=== PATIENT | male | born 1940 | race Caucasian/White ===

== ENCOUNTER 2017-06-20 00:25 | Emergency (ER) | payer MEDICARE, OTHER ==
[~2017-06-20] VITALS: Ht 182.9 cm; Wt 73.5 kg
[~2017-06-20 00:25] MED LIST: ACHYD1T PO; ASP81TEC PO; ATRV10T PO; CIPR500S2 PO; FNST5T PO; PHEN100T26 PO
[2017-06-20] MEDS ORDERED: METO-333 (00:30)
[2017-06-20] MEDS ORDERED: FLUT16SP22 (00:30)
[2017-06-20 00:36] LABS: BASOPHILS % (AUTO) 1 % (0-10); EOSINOPHILS # (AUTO) 0.2 10^3/uL (0.0-0.3); EOSINOPHILS % (AUTO) 4 % (0-10); LYMPHOCYTES # (AUTO) 1.8 X 10^3 (1.0-4.0); LYMPHOCYTES % (AUTO) 31 % (12-44); MEAN CORPUSCULAR HEMOGLOBIN 31 PG (25-34); MEAN CORPUSCULAR HGB CONC 34 G/DL (32-36); MEAN CORPUSCULAR VOLUME 92 FL (80-99); MEAN PLATELET VOLUME 11.3 FL (7.4-10.4); MONOCYTES # (AUTO) 0.5 X 10^3 (0.0-1.0); MONOCYTES % (AUTO) 9 % (0-12); NEUTROPHILS # (AUTO) 3.3 X 10^3 (1.8-7.8); NEUTROPHILS % (AUTO) 56 % (42-75); PLATELET COUNT 203 10^3/uL (130-400); RED BLOOD COUNT 4.28 10^6/uL (4.35-5.85); RED CELL DISTRIBUTION WIDTH 12.5 % (10.0-14.5); WHITE BLOOD COUNT 5.9 10^3/uL (4.3-11.0)
[2017-06-20 00:54] LABS: ALANINE AMINOTRANSFERASE 21 U/L (0-55); ALBUMIN 2.6 GM/DL (3.2-4.5); ALCOHOL < 10 MG/DL (<10); ANION GAP 11 MMOL/L (5-14); ASPARTATE AMINO TRANSFERASE 33 U/L (5-34); BILIRUBIN,TOTAL 0.3 MG/DL (0.1-1.0); BLOOD UREA NITROGEN 18 MG/DL (7-18); BUN/CREATININE RATIO 23; CALCIUM 8.5 MG/DL (8.5-10.1); CARBON DIOXIDE 25 MMOL/L (21-32); CHLORIDE 97 MMOL/L (98-107); CREATININE SERUM 0.79 MG/DL (0.60-1.30); GFR ESTIMATED > 60; GLUCOSE 104 MG/DL (70-105); POTASSIUM 4.1 MMOL/L (3.6-5.0); SODIUM 133 MMOL/L (135-145); TOTAL PROTEIN 3.9 GM/DL (6.4-8.2)
[2017-06-20] MEDS ORDERED: ONDANSETRON 4 MG/2 ML (SDV) Z0FRAN IVP ONE (01:15)
[2017-06-20 02:05] LABS: BILIRUBIN,URINE NEGATIVE (NEGATIVE); KETONES,URINE NEGATIVE (NEGATIVE); LEUKOCYTE ESTERASE ,URINE NEGATIVE (NEGATIVE); NITRITE,URINE NEGATIVE (NEGATIVE); PH,URINE 8 (5-9); PROTEIN,URINE 3+ (NEGATIVE); UROBILINOGEN,URINE NORMAL (NORMAL)
[2017-06-20 02:14] LABS: SQUAMOUS EPITHELIAL CELL,UR RARE /HPF
[2017-06-20] MEDS ORDERED: IOHEXOL 350 MG/ML 100 ML (OMNIPAQUE 350) VIAL IV ONE (02:15)
--- NOTE | 2017-06-20 03:51 | ED Neurological Problem ---
General Chief Complaint: Dizziness/Syncope Stated Complaint: DIZZY Nursing Triage Note: brought in by [facility] for c/o dizziness Nursing Sepsis Screen: No Definite Risk Source: patient Exam Limitations: no limitations History of Present Illness Time seen by provider: 23:30 Initial Comments This 76 or a man presents to the emergency room with complaints of sudden onset of dizziness. He arrives via EMS. During this episode he was losing his balance and bumping into the left wall. Patient reports starting a new blood pressure medication 3 days ago. He also admits to smoking marijuana this morning. He quit drinking alcohol about 2 months ago but resumed drinking today including 2 bottles of hard cider and 2 glasses of wine. He does not appear intoxicated at this time. He is shaky but alert and oriented. He was able to ambulate for EMS at the home. Vital signs been stable. He was recently seen by ENT at [facility] and was also started on a steroid nasal spray. There are no measurable neurologic deficits on initial evaluation. Allergies and Home Medications Allergies Coded Allergies: No Known Drug Allergies (Unverified , 11/24/13) Home Medications Aspirin 81 Mg Tabec, 81 MG PO DAILY, (Reported) Atorvastatin Calcium 10 Mg Tablet, 1 EACH PO DAILY, (Reported) Fluticasone Propionate 16 Gm [place].susp, #16 (Reported) Metoprolol Tartrate 25 Mg Tablet, #60 (Reported) Constitutional: no symptoms reported Eyes: No Symptoms Reported Ears, Nose, Mouth, Throat: see HPI Respiratory: no symptoms reported Cardiovascular: see HPI Gastrointestinal: no symptoms reported Genitourinary: no symptoms reported Musculoskeletal: no symptoms reported Skin: no symptoms reported Psychiatric/Neurological: See HPI Endocrine: No Symptoms Reported Past Tuqhxpa-Rkqtnv-[place] Hx Patient Social History Alcohol Use: Occasionally Uses Recreational Drug Use: Yes Drug of Choice: CANNIBUS Smoking Status: Never a Smoker 2nd Hand Smoke Exposure: No Recent Foreign Travel: No Contact w/Someone Who Travel: No Recent Infectious Disease Expo: No Recent Hopitalizations: No Immunizations Up To Date Tetanus Booster (TDap): Unknown Date of Pneumonia Vaccine: April 05, 2013 Seasonal Allergies Seasonal Allergies: No Surgeries HX Surgeries: Yes Surgeries: CABG, Prostatectomy Respiratory Hx Respiratory Disorders: No Cardiovascular Hx Cardiac Disorders: Yes (CAD) Cardiac Disorders: High Cholesterol, Hypertension Neurological Hx Neurological Disorders: No Genitourinary Hx Genitourinary Disorders: Yes Gastrointestinal Hx Gastrointestinal Disorders: No Musculoskeletal Hx Musculoskeletal Disorders: No Endocrine Hx Endocrine Disorders: No HEENT HX ENT Disorders: No Blood Transfusions Hx Blood Disorders: No Family Medical History Family Medial History: Congestive heart failure 03 MOTHER Family history: Thyroid disorder 09 SISTER History of - disorder 03 FATHER (RENA TRACE'S DISEASE) No Family History of: Abdominal aortic aneurysm Cancer Dementia Family history: Allergy Family history: Alzheimer's disease Family history: Arthritis Family history: Cardiovascular disease Family history: Diabetes mellitus Family history: Gastrointestinal disease Hereditary disease History of - respiratory disease Physical Exam Vital Signs Vital Sign - Last 12Hours 06/20/17 00:30 Temp 97.2 Pulse 81 Resp 16 B/P (MAP) 128/98 Pulse Ox 98 O2 Delivery Room Air Capillary Refill : Less Than 3 Seconds General Appearance: WD/WN, no apparent distress HEENT: PERRL/EOMI, normal ENT inspection, pharynx normal Neck: normal inspection Respiratory: lungs clear, normal breath sounds, no respiratory distress, no accessory muscle use Cardiovascular: regular rate, rhythm, no edema, no murmur, No JVD, other (No carotid bruit) Gastrointestinal: normal bowel sounds, non tender, soft Extremities: normal range of motion, normal inspection, no pedal edema, no calf tenderness, normal capillary refill 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, no motor/sensory deficits, alert, normal mood/affect, oriented x 3, other (Fine tremor) Crainal Nerves: normal hearing, normal speech, PERRL Coordination/Gait: normal gait Motor/Sensory: no motor deficit, no sensory deficit Skin: normal color, warm/dry Progress/Results/Core Measures Results/Orders Lab Results Laboratory Tests Test 06/20/17 00:28 06/20/17 01:58 Range/Units White Blood Count 5.9 4.3-11.0 10^3/uL Red Blood Count 4.28 L 4.35-5.85 10^6/uL Hemoglobin 13.4 13.3-17.7 G/DL Hematocrit 39 L 40-54 % Mean Corpuscular Volume 92 80-99 FL Mean Corpuscular Hemoglobin 31 25-34 PG Mean Corpuscular Hemoglobin Concent 34 32-36 G/DL Red Cell Distribution Width 12.5 10.0-14.5 % Platelet Count 203 130-400 10^3/uL Mean Platelet Volume 11.3 H 7.4-10.4 FL Neutrophils (%) (Auto) 56 42-75 % Lymphocytes (%) (Auto) 31 12-44 % Monocytes (%) (Auto) 9 0-12 % Eosinophils (%) (Auto) 4 0-10 % Basophils (%) (Auto) 1 0-10 % Neutrophils # (Auto) 3.3 1.8-7.8 X 10^3 Lymphocytes # (Auto) 1.8 1.0-4.0 X 10^3 Monocytes # (Auto) 0.5 0.0-1.0 X 10^3 Eosinophils # (Auto) 0.2 0.0-0.3 10^3/uL Basophils # (Auto) 0.0 0.0-0.1 10^3/uL Sodium Level 133 L 135-145 MMOL/L Potassium Level 4.1 3.6-5.0 MMOL/L Chloride Level 97 L 98-107 MMOL/L Carbon Dioxide Level 25 21-32 MMOL/L Anion Gap 11 5-14 MMOL/L Blood Urea Nitrogen 18 7-18 MG/DL Creatinine 0.79 0.60-1.30 MG/DL Estimat Glomerular Filtration Rate > 60 BUN/Creatinine Ratio 23 Glucose Level 104 70-105 MG/DL Calcium Level 8.5 8.5-10.1 MG/DL Total Bilirubin 0.3 0.1-1.0 MG/DL Aspartate Amino Transf (AST/SGOT) 33 5-34 U/L Alanine Aminotransferase (ALT/SGPT) 21 0-55 U/L Alkaline Phosphatase 59 40-136 U/L Total Protein 3.9 L 6.4-8.2 GM/DL Albumin 2.6 L 3.2-4.5 GM/DL Serum Alcohol < 10 <10 MG/DL Urine Color YELLOW Urine Clarity SLIGHTLY CLOUDY Urine pH 8 5-9 Urine Specific [place] 1.010 L 1.016-1.022 Urine Protein 3+ H NEGATIVE Urine Glucose (UA) NEGATIVE NEGATIVE Urine Ketones NEGATIVE NEGATIVE Urine Nitrite NEGATIVE NEGATIVE Urine Bilirubin NEGATIVE NEGATIVE Urine Urobilinogen NORMAL NORMAL MG/DL Urine Leukocyte Esterase NEGATIVE NEGATIVE Urine RBC (Auto) NEGATIVE NEGATIVE Urine RBC NONE /HPF Urine WBC NONE /HPF Urine Squamous Epithelial Cells RARE /HPF Urine Crystals PRESENT H /LPF Urine Amorphous Sediment LARGE TATY PHOSPHATE H /LPF Urine Bacteria TRACE /HPF Urine Casts NONE /LPF Urine Mucus NEGATIVE /LPF Urine Culture Indicated NO Urine Opiates Screen NEGATIVE NEGATIVE Urine Oxycodone Screen NEGATIVE NEGATIVE Urine Methadone Screen NEGATIVE NEGATIVE Urine Propoxyphene Screen NEGATIVE NEGATIVE Urine Barbiturates Screen NEGATIVE NEGATIVE Ur Tricyclic Antidepressants Screen NEGATIVE NEGATIVE Urine Phencyclidine Screen NEGATIVE NEGATIVE Urine Amphetamines Screen NEGATIVE NEGATIVE Urine Methamphetamines Screen NEGATIVE NEGATIVE Urine Benzodiazepines Screen NEGATIVE NEGATIVE Urine Cocaine Screen NEGATIVE NEGATIVE Urine Cannabinoids Screen POSITIVE H NEGATIVE My Orders Orders - CARLOS EDUARDO LAGUERRE MD Alcohol (06/20/17 00:27) Cbc With Automated Diff (06/20/17 00:27) Comprehensive Metabolic Panel (06/20/17 00:27) Ua Culture If Indicated (06/20/17 00:27) Accucheck Stat ONCE (06/20/17 00:27) Saline Lock/Iv-Start (06/20/17 00:27) Ondansetron Injection (Zofran Injectio (06/20/17 01:15) Drug Screen Stat (Urine) (06/20/17 01:05) Ct Angio Head/Neck (06/20/17 01:05) Iohexol Injection (Omnipaque 350 Mg/Ml 1 (06/20/17 02:15) Medications Given in ED Vital Signs/I&O Vital Sign - Last 12Hours 06/20/17 06/20/17 00:30 03:58 Temp 97.2 97.0 Pulse 81 66 Resp 16 16 B/P (MAP) 128/98 Pulse Ox 98 98 O2 Delivery Room Air Room Air Blood Pressure Mean: 108 Progress Note : Progress Note Blood alcohol level was undetectable. Because of the unusual nature of patient' s symptoms, CT angiogram of the head and neck was performed. No carotid stenosis was observed. However, there was a questionable narrowing in the basilar artery. I discussed this finding with the radiologist. I then contacted [facility] stroke neurology hotline and spoke with Dr. He. He suggested aspirin and statin therapy which patient is already on. Beyond that follow-up in the outpatient setting is appropriate. Patient still had no focal deficits at the time of dismissal. Patient demonstrated ability to safely and independently ambulate prior to dismissal. Symptoms could be from a multifactorial etiology with marijuana and alcohol use contributing, especially in conjunction with starting new medications. ECG Initial ECG Impression Date: Jun 20, 2017 Initial ECG Impression Time: 00:34 Initial ECG Rate: 60 Initial ECG Rhythm: Normal Sinus Initial ECG Intervals: Normal Comment Normal sinus rhythm with no ST elevation or depression. Low voltage throughout. No abnormal intervals or axis deviation. Diagnostic Imaging Diagonstic Imaging: CT Plain Films/CT/US/NM/MRI: head Comments CT angiogram of the head and neck shows patent ACAs and MCAs. Carotid arteries are nonobstructed. There is some motion artifact limiting evaluation. The entire basilar artery is not seen. There may be stenosis in the midportion of the basilar artery. Departure Impression Impression: Primary Impression: Disequilibrium Disposition: 01 HOME, SELF-CARE Condition: Improved Departure-Patient Inst. Decision time for Depature: 03:49 Referrals: CATALINO WILSON DO (PCP) Primary Care Physician Patient Instructions: Dizziness, Nonvertigo, (DC) Add. Discharge Instructions: Avoid use of psychoactive substances such as alcohol or marijuana. Continue your aspirin, cholesterol medicine, and metoprolol. Follow-up with your primary care provider soon as possible. Please call on Wednesday for an appointment. Stay well-hydrated. Return to the ER if symptoms worsen. All discharge instructions reviewed with patient and/or family. Voiced understanding. CARLOS EDUARDO LAGUERRE MD Jun 20, 2017 03:51
[2017-06-20 03:58] VITALS: BP 115/70
--- NOTE | 2017-06-20 06:58 | Diagnostic Imaging Report ---
PROCEDURE: CT angiography of the head and CT angiography of the neck with and without contrast. TECHNIQUE: Contiguous noncontrast images were obtained from the skull base through the vertex. After intravenous contrast administration, helical CT angiography of the neck was performed. Source data was reformatted into multiple MIP projections. Delayed post contrast acquisition was also obtained. INDICATION: Dizziness COMPARISON: None available. FINDINGS: PRECONTRAST HEAD: No hyperdense hemorrhage or space-occupying mass. No hydrocephalus or midline shift. No evidence of acute territorial infarct by CT. Paranasal sinuses and mastoid air cells are clear. CTA NECK: Aorta:Aortic arch is patent with multifocal atherosclerotic plaques, and standard three vessel branching pattern. Anterior Circulation: The origin of the bilateral common carotid arteries are patent. No stenosis of the common carotid arteries in the neck. No significant stenosis of the internal carotid arteries per NASCET criteria allowing for motion artifact at the level of the carotid bulbs. The cervical segments of the bilateral ICAs are patent. The proximal external carotid arteries are patent and without significant stenosis. Posterior Circulation: Origins of the bilateral vertebral arteries are normal. Left vertebral artery is dominant The proximal extraousseous, intrasosseous, and distal extraosseous segments of the vertebral arteries are patent without dissection or stenosis. Non-vascular: No cervical lymphadenopathy. The airway is patent. No evidence of mucosal-based mass lesion in the pharynx. Thyroid is normal. Salivary glands are normal. No concerning lesion in the cervical spine. Groundglass attenuation and intralobular septal thickening in the lung apices. CTA HEAD: Anterior Circulation: The distal internal carotid arteries are patent. The bilateral M1 and M2 segments of the middle cerebral arteries are patent and without stenosis. The bilateral M3 and M4 segments are symmetric in size and number. The anterior cerebral arteries are patent and without stenosis. Anterior communicating artery is patent. No saccular aneurysm in the anterior circulation. Posterior Circulation: The bilateral intracranial segments of the vertebral arteries are patent but diminutive in size. Tortuous basilar artery for which evaluation is mildly limited due to motion artifact. The posterior cerebral artery on the left is large. There may be a origin of the left GASKET FORMER. Possible stenosis or tortuosity of the origin of the left GASKET FORMER. The distal left GASKET FORMER is patent. Right GASKET FORMER is also patent proximally. Bilateral posterior communicating arteries are patent and without aneurysm. No saccular aneurysm in the posterior circulation. Post Contrast Head: No pathologic enhancement on delayed post-contrast enhancement. IMPRESSION: 1. Basilar artery is tortuous and small in size, and there is mild patient motion artifact. Allowing for this, there is no high-grade stenosis or occlusion of the basilar artery. Tortuosity of the origin of the posterior cerebral arteries is present and limits evaluation for focal stenosis in these regions. There may be a origin of the posterior cerebral arteries bilaterally, although this may be due to motion artifact. 2. The intracranial anterior circulation is patent. 3. No arterial occlusion or stenosis in the major neck arteries. 4. Findings are in agreement with the preliminary report. Dictated by: Dictated on workstation # [id number]
== END 2017-06-20 03:57 | disposition home or self-care (01) ==
LOC: EDUNIT# 00:25 → ER 00:26
DX: E87.8 Other disorders of electrolyte and fluid balance, not elsewhere classified (principal); E78.00 Pure hypercholesterolemia, unspecified; I10 Essential (primary) hypertension; I25.10 Atherosclerotic heart disease of native coronary artery without angina pectoris; F12.90 Cannabis use, unspecified, uncomplicated; Z79.82 Long term (current) use of aspirin; Z90.79 Acquired absence of other genital organ(s); Z95.1 Presence of aortocoronary bypass graft
CPT/HCPCS: 36415; 70496; 70498; 80053; 80306; 80320; 81000; 85025; 93005

== ENCOUNTER 2018-05-13 13:34 | Day surgery (SDC) | payer MEDICARE, OTHER ==
[~2018-05-13] VITALS: Ht 180.3 cm; Wt 73.5 kg
[~2018-05-13 13:34] MED LIST changes: +FLUT16SP22; +METO-333
--- NOTE | 2018-05-13 13:53 | ED Chest Pain ---
General Stated Complaint: CP Source: patient Exam Limitations: no limitations History of Present Illness Date Seen by Provider: May 13, 2018 Time Seen by Provider: 13:49 Initial Comments to ER accompanied were by his with reports of central chest discomfort. He believes this to represent an esophageal spasm, he's had these before. They were treated by chiropractic treatment and realignment of the thoracic spine and he states that that helped these to resolve. This began shortly after eating lunch today. He does take a daily baby aspirin but has had no other medications. He does have a history of three-vessel CABG in 2013 at the [facility].he follows currently with Dr. Allen from cardiology at [facility] Timing/Duration: 1 hour Severity/Quality: moderate, aching Location: central Radiation: no radiation ASA po OCCUPATIONAL HEALTH PHYSICIAN: No NTG SL OCCUPATIONAL HEALTH PHYSICIAN: No Associated Symptoms: No edema, No nausea/vomiting Allergies and Home Medications Allergies Coded Allergies: No Known Drug Allergies (Unverified , 11/24/13) Home Medications Aspirin 81 Mg Tabec, 81 MG PO DAILY, (Reported) Atorvastatin Calcium 10 Mg Tablet, 1 EACH PO DAILY, (Reported) Patient Home Medication List Home Medication List Reviewed: Yes Review of Systems Constitutional: see HPI EENTM: No Symptoms Reported Respiratory: No Symptoms Reported Cardiovascular: See HPI, Chest Pain Gastrointestinal: No Symptoms Reported Genitourinary: No Symptoms Reported Musculoskeletal: no symptoms reported Skin: no symptoms reported Psychiatric/Neurological: No Symptoms Reported Endocrine: No Symptoms Reported Past Gseoavm-Mqpryv-Iijlnt Hx Patient Social History Alcohol Beverage of Choice: Beer Drug of Choice: CANNIBUS 2nd Hand Smoke Exposure: No Recent Hopitalizations: No Immunizations Up To Date Tetanus Booster (TDap): Unknown Date of Pneumonia Vaccine: April 05, 2013 Seasonal Allergies Seasonal Allergies: No Past Medical History Surgeries: Yes CABG, Prostatectomy Respiratory: No Cardiac: Yes (CAD) High Cholesterol, Hypertension Neurological: No Genitourinary: No Gastrointestinal: No Musculoskeletal: No Endocrine: No Cancer: No Psychosocial: No Integumentary: No Blood Disorders: No Family Medical History Congestive heart failure 03 MOTHER Family history: Thyroid disorder 09 SISTER History of - disorder 03 FATHER (RENA TRACE'S DISEASE) No Family History of: Abdominal aortic aneurysm Cancer Dementia Family history: Allergy Family history: Alzheimer's disease Family history: Arthritis Family history: Cardiovascular disease Family history: Diabetes mellitus Family history: Gastrointestinal disease Hereditary disease History of - respiratory disease Physical Exam Vital Signs Vital Signs - First Documented 05/13/18 13:35 Temp 98.1 Pulse 69 Resp 20 B/P (MAP) 133/87 (102) Pulse Ox 100 Capillary Refill : General Appearance: No Apparent Distress, WD/WN HEENT: PERRL/EOMI, TMs Normal Neck: Full Range of Motion, Normal Inspection Respiratory: Lungs Clear, Normal Breath Sounds, No Accessory Muscle Use, No Respiratory Distress Cardiovascular: Regular Rate, Rhythm, Normal Peripheral Pulses Gastrointestinal: Normal Bowel Sounds, Non Tender, Soft Extremity: Normal Capillary Refill, Normal Range of Motion Neurologic/Psychiatric: Alert, Oriented x3 Skin: Normal Color, Warm/Dry Progress/Results/Core Measures Results/Orders Lab Results Laboratory Tests Test 05/13/18 13:44 Range/Units White Blood Count 5.6 4.3-11.0 10^3/uL Red Blood Count 4.43 4.35-5.85 10^6/uL Hemoglobin 14.2 13.3-17.7 G/DL Hematocrit 41 40-54 % Mean Corpuscular Volume 92 80-99 FL Mean Corpuscular Hemoglobin 32 25-34 PG Mean Corpuscular Hemoglobin Concent 35 32-36 G/DL Red Cell Distribution Width 13.7 10.0-14.5 % Platelet Count 232 130-400 10^3/uL Mean Platelet Volume 11.5 H 7.4-10.4 FL Neutrophils (%) (Auto) 72 42-75 % Lymphocytes (%) (Auto) 20 12-44 % Monocytes (%) (Auto) 5 0-12 % Eosinophils (%) (Auto) 2 0-10 % Basophils (%) (Auto) 1 0-10 % Neutrophils # (Auto) 4.0 1.8-7.8 X 10^3 Lymphocytes # (Auto) 1.1 1.0-4.0 X 10^3 Monocytes # (Auto) 0.3 0.0-1.0 X 10^3 Eosinophils # (Auto) 0.1 0.0-0.3 10^3/uL Basophils # (Auto) 0.0 0.0-0.1 10^3/uL Prothrombin Time 12.7 12.2-14.7 SEC INR Comment 1.0 0.8-1.4 Activated Partial Thromboplast Time 27 24-35 SEC Sodium Level 133 L 135-145 MMOL/L Potassium Level 4.4 3.6-5.0 MMOL/L Chloride Level 101 98-107 MMOL/L Carbon Dioxide Level 24 21-32 MMOL/L Anion Gap 8 5-14 MMOL/L Blood Urea Nitrogen 14 7-18 MG/DL Creatinine 0.68 0.60-1.30 MG/DL Estimat Glomerular Filtration Rate > 60 BUN/Creatinine Ratio 21 Glucose Level 89 70-105 MG/DL Calcium Level 8.0 L 8.5-10.1 MG/DL Magnesium Level 1.6 L 1.8-2.4 MG/DL Total Bilirubin 0.5 0.1-1.0 MG/DL Aspartate Amino Transf (AST/SGOT) 36 H 5-34 U/L Alanine Aminotransferase (ALT/SGPT) 20 0-55 U/L Alkaline Phosphatase 52 40-136 U/L Myoglobin 204.7 H 10.0-92.0 NG/ML Troponin I < 0.30 <0.30 NG/ML B-Type Natriuretic Peptide 387.1 H <100.0 PG/ML Total Protein 3.9 L 6.4-8.2 GM/DL Albumin 2.3 L 3.2-4.5 GM/DL Lipase 11 8-78 U/L My Orders Orders - ANA M CANTU APRN Cbc With Automated Diff (05/13/18 13:48) Magnesium (05/13/18 13:48) Chest 1 View, Ap/Pa Only (05/13/18 13:48) Ekg Tracing (05/13/18 13:48) Cardiac Profile 1 (05/13/18 13:48) Comprehensive Metabolic Panel (05/13/18 13:48) Myoglobin Serum (05/13/18 13:48) Protime With Inr (05/13/18 13:48) Partial Thromboplastin Time (05/13/18 13:48) O2 (05/13/18 13:48) Monitor-Rhythm Ecg Trace Only (05/13/18 13:48) Lipid Panel (05/14/18 06:00) Aspirin Chewable Tablet (Baby Aspirin Ch (05/13/18 14:00) Saline Lock/Iv-Start (05/13/18 13:48) Lipase (05/13/18 13:48) Antacid Suspension (Mylanta Suspension (05/13/18 14:00) Lidocaine 2% Viscous 15 Ml (Xylocaine Vi (05/13/18 14:00) Ondansetron Injection (Zofran Injectio (05/13/18 14:30) Ekg Tracing (05/13/18 14:16) Ondansetron Injection (Zofran Injectio (05/13/18 14:17) Ct Angio Chest/Abd W (05/13/18 14:27) Iohexol Injection (Omnipaque 350 Mg/Ml 1 (05/13/18 14:30) Sodium Chloride Flush (Catheter Flush Sy (05/13/18 14:30) Ns (Ivpb) (Sodium Chloride 0.9%) (05/13/18 14:30) Pharmacy Communication (Pharmacy Communi (05/13/18 14:29) BNP (05/13/18 14:51) Medications Given in ED Current Medications Medications Dose Ordered Sig/Ashlyn Route Start Time Stop Time Status Last Admin Dose Admin Al Hydrox/Mg Hydrox/Simethicone 30 ml ONCE ONCE PO 05/13/18 14:00 05/13/18 14:01 DC 05/13/18 14:15 30 ML Aspirin 324 mg ONCE ONCE PO 05/13/18 14:00 05/13/18 14:01 DC 05/13/18 15:08 324 MG Iohexol 150 ml ONCE ONCE IV 05/13/18 14:30 05/13/18 14:31 DC 05/13/18 14:55 125 ML Lidocaine HCl 15 ml ONCE ONCE PO 05/13/18 14:00 05/13/18 14:01 DC 05/13/18 14:16 15 ML Sodium Chloride 10 ml NEEDED PRN IV 05/13/18 14:30 05/13/18 14:55 10 ML Sodium Chloride 250 ml ONCE ONCE IV 05/13/18 14:30 05/13/18 14:31 DC 05/13/18 14:55 80 ML Vital Signs/I&O 05/13/18 13:35 Temp 98.1 Pulse 69 Resp 20 B/P (MAP) 133/87 (102) Pulse Ox 100 Progress Progress Note : Progress Note NAME: NEGRITA MOORE MED REC#: [id number] PT STATUS: REG ER : 1940 PHYSICIAN: ANA M CANTU APRN ADMIT DATE: 05/13/18/ER Draft Date of Exam:05/13/18 CHEST 1 VIEW, AP/PA ONLY INDICATION: Chest pain. EXAMINATION: Single view of the chest was obtained at 2:29 p.m. COMPARISON: Prior chest from 12/25/2007. FINDINGS: Since the prior study, patient has undergone median sternotomy and CABG. There are bibasilar infiltrates noted. There also appears to be a small left effusion. Mid and upper lung zimmerman are clear. No pneumothorax is seen. IMPRESSION: Status post CABG. There are bibasilar infiltrates and small left pleural effusion. Dictated on workstation # [id number] Dict: 05/13/18 1439 Trans: 05/13/18 1509 [facility] [id number] Interpreted by: DIEGO ARIAS MD Electronically signed by: NAME: NEGRITA MOORE [facility] REC#: [id number] PT STATUS: REG ER : 1940 PHYSICIAN: ANA M CANTU APRN ADMIT DATE: 05/13/18/ER Draft Date of Exam:05/13/18 CT ANGIO CHEST/ABD W PROCEDURE: CT angiography of the abdomen and chest with and without contrast. TECHNIQUE: After intravenous administration of contrast, thin section axial CT angiography of the abdomen and chest were obtained. Multiple MIP reformats were provided. INDICATION: Chest and epigastric pain as well as hypoxia. CTA CHEST: Evaluation of the pulmonary arterial system is without evidence of thromboembolism. No filling defects are seen within central, lobar or segmental branches. Thoracic aorta shows atherosclerotic changes but is non-aneurysmal. No dissection is seen. There appears to be diffuse distention to the esophagus which contains foodstuff. No pericardial fluid is seen. There are bilateral pleural effusions, greater on the left. No definite axillary lymphadenopathy is seen. No definite mediastinal or hilar lymphadenopathy is detected. There are some infiltrates or atelectasis in bilateral lower lobes. IMPRESSION: 1. No evidence of pulmonary embolism or thoracic aortic dissection. 2. Bilateral pleural effusions, left greater, with mild bibasilar infiltrates or atelectasis. 3. Diffuse distention of the esophagus, as described. CTA ABDOMEN: The abdominal aorta and proximal iliac vessels are severely calcified but nonaneurysmal. No dissection is seen. The celiac, SMA and BETH are patent at their origins. There are single renal arteries, bilaterally. The liver contains a 17 mm low-density in the right lobe, suggestive of a cyst. No other liver lesion is seen. The gallbladder is unremarkable. The pancreas and spleen are unremarkable. No adrenal mass is seen. The kidneys are unremarkable. Bowel loops are normal caliber. There is no obstruction. There is no ascites. Moderate stool in the colon is seen. IMPRESSION: Essentially unremarkable CT of the abdomen, apart from moderate stool in the colon. There is no evidence of abdominal aortic aneurysm or dissection. Dictated on workstation # [id number] Dict: 05/13/18 1509 Trans: 05/13/18 1518 [facility] [id number] Interpreted by: DIEGO ARIAS MD Electronically signed by: Departure Communication (Admissions) 1342-he did have a brief episode of hypoxia. Oxygen saturation dropped to about 87% on room air with good waveform. He denies any shortness of breath but states that it is worse pain when he takes a deep breath. He was given a GI cocktail and immediately regurgitated this which does concern me for an esophageal food impaction. He was able to vomit quite a bit of his lunch as well. He was then able to drink some water and this went down and stayed down. He reports a persistent ache in the center of his chest. He was given 2 L of oxygen via nasal cannula. 1521- He reports persistent discomfort. CT angio chest shows diffuse distention of the esophagus. I relayed these findings to Dr. Dupree on-call for surgery. He'll speak with endoscopy nurse to determine when the patient can go for EGD. We did repeat an EKG without ST segment changes to indicate ischemia. He does have low voltage throughout. 1525-Dr Dupree here to see pt. Will take to endoscopy shortly. Impression Primary Impression: Esophageal obstruction Disposition: 09 ADMITTED INPATIENT Condition: Stable Admissions Decision to Admit Reason: Admit from ER (General) Decision to Admit/Date: May 13, 2018 Time/Decision to Admit Time: 15:35 Departure-Patient Inst. Referrals: CATALINO WILSON DO (PCP) Primary Care Physician ANA M CANTU APRN May 13, 2018 13:53
[2018-05-13] MEDS ORDERED: ASPIRIN 81 MG CHEW (CHILDREN'S ASA) PO ONE (14:00)
[2018-05-13] MEDS ORDERED: LIDOCAINE 2% VISCOUS 15 ML UDC PO ONE (14:00)
[2018-05-13] MEDS ORDERED: ANTACID SUSP 30 ML UDC (MYLANTA) PO ONE (14:00)
[2018-05-13 14:02] LABS: BASOPHILS % (AUTO) 1 % (0-10); EOSINOPHILS # (AUTO) 0.1 10^3/uL (0.0-0.3); EOSINOPHILS % (AUTO) 2 % (0-10); HEMATOCRIT 41 % (40-54); HEMOGLOBIN 14.2 G/DL (13.3-17.7); LYMPHOCYTES # (AUTO) 1.1 X 10^3 (1.0-4.0); LYMPHOCYTES % (AUTO) 20 % (12-44); MEAN CORPUSCULAR HEMOGLOBIN 32 PG (25-34); MEAN CORPUSCULAR HGB CONC 35 G/DL (32-36); MEAN CORPUSCULAR VOLUME 92 FL (80-99); MEAN PLATELET VOLUME 11.5 FL (7.4-10.4); MONOCYTES # (AUTO) 0.3 X 10^3 (0.0-1.0); MONOCYTES % (AUTO) 5 % (0-12); NEUTROPHILS % (AUTO) 72 % (42-75); PLATELET COUNT 232 10^3/uL (130-400); RED BLOOD COUNT 4.43 10^6/uL (4.35-5.85); RED CELL DISTRIBUTION WIDTH 13.7 % (10.0-14.5); WHITE BLOOD COUNT 5.6 10^3/uL (4.3-11.0)
[2018-05-13 14:13] LABS: PROTHROMBIN TIME PATIENT 12.7 SEC (12.2-14.7)
[2018-05-13] MEDS ORDERED: ONDANSETRON 4 MG/2 ML (SDV) Z0FRAN ONE ×2 (14:17→16:52)
[2018-05-13 14:20] LABS: ALANINE AMINOTRANSFERASE 20 U/L (0-55); ALBUMIN 2.3 GM/DL (3.2-4.5); ALKALINE PHOSPHATASE 52 U/L (40-136); BILIRUBIN,TOTAL 0.5 MG/DL (0.1-1.0); BUN/CREATININE RATIO 21; CARBON DIOXIDE 24 MMOL/L (21-32); CHLORIDE 101 MMOL/L (98-107); CREATININE SERUM 0.68 MG/DL (0.60-1.30); GFR ESTIMATED > 60; GLUCOSE 89 MG/DL (70-105); LIPASE 11 U/L (8-78); MAGNESIUM 1.6 MG/DL (1.8-2.4); POTASSIUM 4.4 MMOL/L (3.6-5.0); SODIUM 133 MMOL/L (135-145); TOTAL PROTEIN 3.9 GM/DL (6.4-8.2)
[2018-05-13 14:29] LABS: MYOGLOBIN SERUM 204.7 NG/ML (10.0-92.0)
[2018-05-13] MEDS ORDERED: NS 250 ML (IVPB) BAG IV ONE (14:30)
[2018-05-13] MEDS ORDERED: CATHETER FLUSH 10 ML SYR IV PRN (14:30)
[2018-05-13] MEDS ORDERED: IOHEXOL 350 MG/ML 150 ML (OMNIPAQUE 350) VIAL IV ONE (14:30)
[2018-05-13] MEDS ORDERED: ONDANSETRON 4 MG/2 ML (SDV) Z0FRAN IVP ONE (14:30)
--- NOTE | 2018-05-13 15:10 | Diagnostic Imaging Report ---
INDICATION: Chest pain. EXAMINATION: Single view of the chest was obtained at 2:29 p.m. COMPARISON: Prior chest from 12/25/2007. FINDINGS: Since the prior study, patient has undergone median sternotomy and CABG. There are bibasilar infiltrates noted. There also appears to be a small left effusion. Mid and upper lung zimmerman are clear. No pneumothorax is seen. IMPRESSION: Status post CABG. There are bibasilar infiltrates and small left pleural effusion. Dictated by: Dictated on workstation # [id number]
--- NOTE | 2018-05-13 15:18 | Diagnostic Imaging Report ---
PROCEDURE: CT angiography of the abdomen and chest with and without contrast. TECHNIQUE: After intravenous administration of contrast, thin section axial CT angiography of the abdomen and chest were obtained. Multiple MIP reformats were provided. INDICATION: Chest and epigastric pain as well as hypoxia. CTA CHEST: Evaluation of the pulmonary arterial system is without evidence of thromboembolism. No filling defects are seen within central, lobar or segmental branches. Thoracic aorta shows atherosclerotic changes but is non-aneurysmal. No dissection is seen. There appears to be diffuse distention to the esophagus which contains foodstuff. No pericardial fluid is seen. There are bilateral pleural effusions, greater on the left. No definite axillary lymphadenopathy is seen. No definite mediastinal or hilar lymphadenopathy is detected. There are some infiltrates or atelectasis in bilateral lower lobes. IMPRESSION: 1. No evidence of pulmonary embolism or thoracic aortic dissection. 2. Bilateral pleural effusions, left greater, with mild bibasilar infiltrates or atelectasis. 3. Diffuse distention of the esophagus, as described. CTA ABDOMEN: The abdominal aorta and proximal iliac vessels are severely calcified but nonaneurysmal. No dissection is seen. The celiac, SMA and BETH are patent at their origins. There are single renal arteries, bilaterally. The liver contains a 17 mm low-density in the right lobe, suggestive of a cyst. No other liver lesion is seen. The gallbladder is unremarkable. The pancreas and spleen are unremarkable. No adrenal mass is seen. The kidneys are unremarkable. Bowel loops are normal caliber. There is no obstruction. There is no ascites. Moderate stool in the colon is seen. IMPRESSION: Essentially unremarkable CT of the abdomen, apart from moderate stool in the colon. There is no evidence of abdominal aortic aneurysm or dissection. Dictated by: Dictated on workstation # [id number]
--- NOTE | 2018-05-13 15:40 | Consultation ---
History of Present Illness History of Present Illness Patient Consulted On(conrad/time) 05/13/18 15:32 Date Seen by Provider: May 13, 2018 Time Seen by Provider: 15:01 History of Present Illness Surgery asked to consult regarding chest pain and suspected esophageal obstruction due to food bolus. HPI per ED:to ER accompanied were by his with reports of central chest discomfort. He believes this to represent an esophageal spasm, he's had these before. They were treated by chiropractic treatment and realignment of the thoracic spine and he states that that helped these to resolve. This began shortly after eating lunch today. He does take a daily baby aspirin but has had no other medications. He does have a history of three-vessel CABG in 2013 at the [facility].he follows currently with Dr. Allen from cardiology at [facility] Timing/Duration: 1 hour Severity/Quality: moderate, aching Location: central Radiation: no radiation ASA po WIRE PHOTO OPERATOR: No NTG SL WIRE PHOTO OPERATOR: No Associated Symptoms: No edema When I spoke to pt he was not having any chest pain, no vomiting since the episode after he drank GI cocktail. He states this has happened before but he never had an EGD for these events. Allergies and Home Medications Allergies Coded Allergies: No Known Drug Allergies (Unverified , 11/24/13) Home Medications Aspirin 81 Mg Tabec, 81 MG PO DAILY, (Reported) Atorvastatin Calcium 10 Mg Tablet, 1 EACH PO DAILY, (Reported) Patient Home Medication List Home Medication List Reviewed: Yes Past Isirbhc-Urkxyk-Fjdeai Hx Patient Social History Alcohol Use: Denies Use Number of Drinks Today: AA Recreational Drug Use: Yes Drug of Choice: CANNIBUS Smoking Status: Never a Smoker 2nd Hand Smoke Exposure: No Recent Foreign Travel: No Contact w/Someone Who Travel: No Recent Infectious Disease Expo: No Recent Hopitalizations: No Immunizations Up To Date Tetanus Booster (TDap): Unknown Date of Pneumonia Vaccine: April 05, 2013 Seasonal Allergies Seasonal Allergies: No Surgeries History of Surgeries: Yes Surgeries: CABG, Prostatectomy Respiratory History of Respiratory Disorde: No Cardiovascular History of Cardiac Disorders: Yes (CAD) Cardiac Disorders: High Cholesterol, Hypertension Neurological History of Neurological Disord: No Genitourinary History of Genitourinary Disor: No Gastrointestinal History of Gastrointestinal Di: No Musculoskeletal History of Musculoskeletal Dis: No Endocrine History of Endocrine Disorders: No Cancer History of Cancer: No Psychosocial History of Psychiatric Problem: No Integumentary History of Skin or Integumenta: No Blood Transfusions History of Blood Disorders: No Family Medical History Significant Family History: COPD (brother) Family Medial History: Congestive heart failure 03 MOTHER Family history: Thyroid disorder 09 SISTER History of - disorder 03 FATHER (RENA TRACE'S DISEASE) No Family History of: Abdominal aortic aneurysm Cancer Dementia Family history: Allergy Family history: Alzheimer's disease Family history: Arthritis Family history: Cardiovascular disease Family history: Diabetes mellitus Family history: Gastrointestinal disease Hereditary disease History of - respiratory disease Review of Systems-General Constitutional: No chills, No diaphoresis, No dizziness EENTM: hearing loss, vision loss; No mouth pain, No mouth swelling, No epistaxis, No throat swelling Respiratory: No cough, No dyspnea on exertion, No hemoptysis, No short of breath Cardiovascular: chest pain, Hx of Intervention; No palpitations Gastrointestinal: abdominal pain (epigastric); No jaundice, No melena; vomiting Genitourinary: No dysuria, No frequency, No hematuria Musculoskeletal: back pain, joint pain, muscle stiffness Skin: No change in color, No change in hair/nails Psychiatric/Neurological: Denies Anxiety, Denies Depressed, Denies Seizure, Denies Tremors Other denies any abnormal bruising or bleeding, no heat or cold intolerance Physical Exam-General Problems Physical Exam Vital Signs Vital Signs - First Documented 05/13/18 13:35 Temp 98.1 Pulse 69 Resp 20 B/P (MAP) 133/87 (102) Pulse Ox 100 Capillary Refill : Less Than 3 Seconds General Appearance: WD/WN, no apparent distress Eyes: Bilateral Eye PERRL, Bilateral Eye EOMI HEENT: pharynx normal; No scleral icterus (R), No scleral icterus (L), No pale conjunctivae (R), No pale conjunctivae (L) Neck: non-tender, normal inspection Respiratory: chest non-tender, no respiratory distress, no accessory muscle use , decreased breath sounds (at bases bilaterally), crackles (at bases) Cardiovascular: regular rate, rhythm, no edema, no murmur Gastrointestinal: normal bowel sounds, non tender, soft, no organomegaly, no pulsatile mass Back: normal inspection, no CVA tenderness, no vertebral tenderness Extremities: normal range of motion, non-tender, normal inspection, no pedal edema, no calf tenderness Neurologic/Psychiatric: environmental department manager II-XII nml as tested, no motor/sensory deficits, alert, normal mood/affect, oriented x 3 Skin: normal color, warm/dry Lymphatic: no adenopathy (neck, axilla or groin) Data Review Labs Laboratory Tests 05/13/18 13:44: White Blood Count 5.6, Red Blood Count 4.43, Hemoglobin 14.2, Hematocrit 41, Mean Corpuscular Volume 92, Mean Corpuscular Hemoglobin 32, Mean Corpuscular Hemoglobin Concent 35, Red Cell Distribution Width 13.7, Platelet Count 232, Mean Platelet Volume 11.5H, Neutrophils (%) (Auto) 72, Lymphocytes (%) (Auto) 20 , Monocytes (%) (Auto) 5, Eosinophils (%) (Auto) 2, Basophils (%) (Auto) 1, Neutrophils # (Auto) 4.0, Lymphocytes # (Auto) 1.1, Monocytes # (Auto) 0.3, Eosinophils # (Auto) 0.1, Basophils # (Auto) 0.0, Prothrombin Time 12.7, INR Comment 1.0, Activated Partial Thromboplast Time 27, Sodium Level 133L, Potassium Level 4.4, Chloride Level 101, Carbon Dioxide Level 24, Anion Gap 8, Blood Urea Nitrogen 14, Creatinine 0.68, Estimat Glomerular Filtration Rate > 60 , BUN/Creatinine Ratio 21, Glucose Level 89, Calcium Level 8.0L, Magnesium Level 1.6L, Total Bilirubin 0.5, Aspartate Amino Transf (AST/SGOT) 36H, Alanine Aminotransferase (ALT/SGPT) 20, Alkaline Phosphatase 52, Myoglobin 204.7H, Troponin I < 0.30, B-Type Natriuretic Peptide 387.1H, Total Protein 3.9L, Albumin 2.3L, Lipase 11 Assessment/Plan Assessment/Plan Assessment/Plan Chest pain Suspected Esophageal obstruction ASCVD Plan is to take pt for EGD with anesthesia. Will remove food bolus or maybe push into stomach, possible biopsy. Discussed procedure with pt and his family; risks and complications, not limited to pain, bleeding, infection, and even esophageal perforation. All questions answered to their satisfaction. Clinical Quality Measures AMI/AHF: ASA po Prior to arrival: SARAH Young DO May 13, 2018 15:40
[2018-05-13] MEDS ORDERED: proPOfol 200 MG/20 ML (DIPRIVAN) VIAL IV ONE (16:06)
[2018-05-13] MEDS ORDERED: SUCCINYLCHOLINE INJ 100 MG/5 ML SYR ONE (16:06)
[2018-05-13] MEDS ORDERED: fentaNYL INJECTION 100 MCG/2 ML AMP ONE (16:07)
[2018-05-13] MEDS ORDERED: LACTATED RINGERS 1,000 ML IV ONE (16:16)
[2018-05-13] MEDS ORDERED: SEVOFLURANE (ULTANE) 15 ML INHAL SOLN ONE (16:52)
--- NOTE | 2018-05-13 16:56 | Progress Note-Post Operative ---
Post-Operative Progess Note Surgeon (s)/Cattle Knocker (s) Surgeon SARAH LIMON DO Cattle Knocker: none Pre-Operative Diagnosis Chest pain, suspected esophageal obstruction Post-Operative Diagnosis Chest pain Food bolus causing esophageal obstruction Esophageal erosion Procedure & Operative Findings Date of Procedure 05/13/18 Procedure Performed/Findings EGD with advancement of food bolus into stomach Anesthesia Type GET Estimated Blood Loss Estimated blood loss (mL): none Specimens/Packing Specimens Removed none SARAH LIMON DO May 13, 2018 16:56
--- NOTE | 2018-05-13 17:00 | Endoscopy Discharge Instruct ---
Endo Procedure/Findings Findings 1.: Other Findings (Esophageal Erosion) 2.: Other Findings (Food bolus) Discharge Instructions - Activity: You might feel a little sleepy until tomorrow. This is due to the medicine you received to relax you. Until tomorrow, you should: NOT drive a car, operate machinery or power tools. NOT drink any alcoholic beverages. NOT make any important decisions or sign importortant papers. Do not return to work until tomorrow, unless otherwise instructed. Resume previous activities tomorrow. Diet: Start by taking liquids. If you tolerate liquids, advance to pureed food for the next 6 weeks. All medications need to be crushed or liquid form only. Call my office wednesday to make an appointment, . Instructions: 1.: EGD in 6-8 weeks Notify Physician - If you experience excessive bleeding, unusual abdominal pain, fever, or chest pain, contact your doctor immediately. Follow-Up: - I have received and understand the above instructions and will call my doctor if I have any further questions. Patient Signature Date Nurse Signature Other (Relationship) SARAH LIMON DO May 13, 2018 17:00
[2018-05-13] MEDS ORDERED: LACTATED RINGERS 1,000 ML IV SCH (17:30)
[2018-05-13 18:00] VITALS: BP 111/62
--- NOTE | 2018-05-13 18:07 | Anesthesia-General Post-Op ---
General Patient Condition Mental Status/LOC: Same as Preop Cardiovascular: Satisfactory Nausea/Vomiting: Absent Respiratory: Satisfactory Pain: Controlled Complications: Absent Post Op Complications Complications None Follow Up Care/Instructions Patient Instructions None needed. Anesthesia/Patient Condition Patient Condition Patient is doing well, no complaints, stable vital signs, no apparent adverse anesthesia problems. No complications reported per nursing. ISIDORO MATAMOROS CRNA May 13, 2018 18:07
[2018-05-13 18:15] VITALS: BP 105/51
--- NOTE | 2018-05-14 00:41 | OPERATIVE REPORT ---
DATE OF SERVICE: PREOPERATIVE DIAGNOSES: Chest pain, rule out esophageal obstruction. POSTOPERATIVE DIAGNOSES: 1. Chest pain. 2. Esophageal obstruction. 3. Esophageal erosion. PROCEDURE: EGD with advancement of food bolus. SURGEON: Rom Dupree DO. CARE TECH: None. ANESTHESIA: General endotracheal tube. SPECIMENS: None. BLOOD LOSS: None. FLUIDS: Per anesthesia. POSTOPERATIVE CONDITION: Stable. INDICATION FOR PROCEDURE: The patient is a 77-year-old male who came in with some chest pain thought maybe some cardiac related, but the workup was negative and the CTA showed fluid and food and possible debris in the esophagus, needed to rule out esophageal obstruction from food bolus. FINDINGS: The patient did have some food obstructing the distal portion of the esophagus; however, he also had a very large erosion in the mid to distal esophagus. A picture was taken. Did not do biopsies, otherwise esophagus and stomach and first portion of duodenum looked okay. PROCEDURE NOTE: After informed consent was obtained, the patient was brought to the endoscopy suite. He was intubated and then by the anesthesia and ENGAGEMENT DIRECTOR who then monitored his vital signs the entire time, placed the EGD scope down the mouth into the esophagus and then at the mid to distal esophagus saw what looked like a very bad erosion covered with some of the food. Continued down, this food was still there at the bottom with a little bit of liquid and it looked like probably a piece of the chicken he had eaten, able to push this into the stomach, then noted a lot of fluid and chicken pieces in the stomach, also saw some pills, pushed towards the pylorus and then into the duodenum. Duodenum looked okay as well as the stomach pulled back into the antrum, this looked okay and then tried to retroflex, could not really see because it was full of thick fluid and large pieces, pulled back into the distal esophagus, tried to take a picture of the GE junction, looked okay, but could not get it to really dilate open, pulled up and then tried to flush off what looked like food stuck on the esophageal wall and this erosion, there looked like old blood vessels are bleeding around it, but no active bleeding at this time, looked like eroded through the mucosa over a long stretch of the esophagus probably at least 5 cm. Pictures were taken. The upper portion of the esophagus looked fine. Pictures were taken. The scope was removed and the patient tolerated the procedure. He was recovered in endoscopy suite. Job ID: [id number] DocumentID: [id number] Dictated Date: 05/13/2018 17:09:29 Check Clerk Date: 05/14/2018 00:40:44 Dictated By: DO AARTI CHARLES
== END 2018-05-13 18:15 | disposition home or self-care (01) ==
LOC: EDUNIT# 13:34 → ER 13:36 → ENDO 15:56
PROVIDERS: ATTEND Surgery
DX: T18.128A Food in esophagus causing other injury, initial encounter (principal); K22.2 Esophageal obstruction; K22.10 Ulcer of esophagus without bleeding; R09.02 Hypoxemia; I25.10 Atherosclerotic heart disease of native coronary artery without angina pectoris; I10 Essential (primary) hypertension; E78.00 Pure hypercholesterolemia, unspecified; Z79.82 Long term (current) use of aspirin; Z95.1 Presence of aortocoronary bypass graft
CPT/HCPCS: 36415; 71045; 71275; 74175; 80053; 83690; 83735; 83874; 83880; 84484; 85025; 85610; 85730; 93005; 93041

== ENCOUNTER 2018-06-22 13:01 | Emergency (ER) | payer MEDICARE, OTHER ==
[~2018-06-22] VITALS: Ht 180.3 cm; Wt 72.6 kg
[2018-06-22] MEDS ORDERED: DEXTROSE 50% 50 ML (IMS) SYR ONE (13:04)
[2018-06-22] MEDS ORDERED: DEXTROSE 50% 50 ML (IMS) SYR IV ONE (13:15)
[2018-06-22 13:21] LABS: BASOPHILS % (AUTO) 1 % (0-10); EOSINOPHILS # (AUTO) 0.1 10^3/uL (0.0-0.3); EOSINOPHILS % (AUTO) 1 % (0-10); HEMATOCRIT 37 % (40-54); HEMOGLOBIN 13.3 G/DL (13.3-17.7); LYMPHOCYTES # (AUTO) 1.1 X 10^3 (1.0-4.0); LYMPHOCYTES % (AUTO) 16 % (12-44); MEAN CORPUSCULAR HEMOGLOBIN 33 PG (25-34); MEAN CORPUSCULAR HGB CONC 36 G/DL (32-36); MEAN CORPUSCULAR VOLUME 91 FL (80-99); MEAN PLATELET VOLUME 10.7 FL (7.4-10.4); MONOCYTES # (AUTO) 0.6 X 10^3 (0.0-1.0); MONOCYTES % (AUTO) 9 % (0-12); NEUTROPHILS % (AUTO) 74 % (42-75); PLATELET COUNT 259 10^3/uL (130-400); RED BLOOD COUNT 4.09 10^6/uL (4.35-5.85); RED CELL DISTRIBUTION WIDTH 13.4 % (10.0-14.5); WHITE BLOOD COUNT 6.7 10^3/uL (4.3-11.0)
--- NOTE | 2018-06-22 13:22 | ED Neurological Problem ---
General Chief Complaint: Altered Mental Status Stated Complaint: POSS STROKE Source: patient Exam Limitations: no limitations History of Present Illness Date Seen by Provider: Jun 22, 2018 Time Seen by Provider: 13:18 Initial Comments To ER per private vehicle coming by his with reports of stroke like symptoms. This began 30 minutes ago. Just prior to this he been on the phone which was a very aggravating phone call he states. He was trying to connect a wireless heart monitor prescribed by Dr. Allen was having difficulties arranging this, the phone call is very frustrating to him and he got very upset. Shortly thereafter he began general weakness with diaphoresis. He's not yet eaten this morning. He's been on a. Diet after Dr. Gilmore scoped him and found an esophageal erosion. He has not yet had any breakfast. This is the last day of his 6 week course of pured diet. He states he is very hungry. Blood sugar on arrival is 51. He is generally and globally weak, not a unilateral weakness. Timing/Duration: 1 week Severity: moderate Associated Symptoms: fever/chills Allergies and Home Medications Allergies Coded Allergies: No Known Drug Allergies (Unverified , 11/24/13) Home Medications Aspirin 81 Mg Tabec, 81 MG PO DAILY, (Reported) Patient Home Medication List Home Medication List Reviewed: Yes Review of Systems Constitutional: see HPI; No chills, No fever Eyes: No Symptoms Reported Ears, Nose, Mouth, Throat: no symptoms reported Respiratory: no symptoms reported Cardiovascular: no symptoms reported Genitourinary: no symptoms reported Musculoskeletal: no symptoms reported Skin: no symptoms reported Psychiatric/Neurological: See HPI Endocrine: No Symptoms Reported Hematologic/Lymphatic: No Symptoms Reported Past Vsrgbah-Zpksnt-Brbmlh Hx Patient Social History Alcohol Use: Rarely Uses Number of Drinks Today: AA Alcohol Beverage of Choice: Beer Recreational Drug Use: Yes Drug of Choice: CANNIBUS Smoking Status: Never a Smoker 2nd Hand Smoke Exposure: No Recent Hopitalizations: No Physical Abuse: No Sexual Abuse: No Mistreated: No Fear: No Immunizations Up To Date Tetanus Booster (TDap): Unknown Date of Pneumonia Vaccine: April 05, 2013 Seasonal Allergies Seasonal Allergies: No Past Medical History Surgeries: Yes (BACK, ) CABG, Orthopedic, Prostatectomy Respiratory: No Cardiac: Yes (CAD) High Cholesterol, Hypertension Neurological: No Neuropathy Genitourinary: No (KIDNEY DZ) 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) Musculoskeletal: No Endocrine: No Macular Degeneration Cancer: No Psychosocial: No Nursing Suicide Risk Score: 0 Integumentary: No Blood Disorders: No Family Medical History Congestive heart failure 03 MOTHER Family history: Thyroid disorder 09 SISTER History of - disorder 03 FATHER (RENA TRACE'S DISEASE) No Family History of: Abdominal aortic aneurysm Cancer Dementia Family history: Allergy Family history: Alzheimer's disease Family history: Arthritis Family history: Cardiovascular disease Family history: Diabetes mellitus Family history: Gastrointestinal disease Hereditary disease History of - respiratory disease COPD Physical Exam Vital Signs Vital Signs - First Documented 06/22/18 13:10 Temp 96.7 Pulse 66 Resp 20 B/P (MAP) 147/85 (105) Pulse Ox 98 Capillary Refill : Height, Weight, BMI Height: 5'11.00" Weight: 162lbs. oz. 73.493594af; BMI Method:Stated General Appearance: WD/WN, no apparent distress, other (he is alert, moves all extremities reports tingling in both lower extremities from the feet distally.) HEENT: normal ENT inspection, TMs normal, other (left pupil is slightly larger than the right) Neck: non-tender, full range of motion Respiratory: no respiratory distress, no accessory muscle use Cardiovascular: regular rate, rhythm, no murmur Gastrointestinal: normal bowel sounds, non tender, soft Extremities: normal range of motion, non-tender Neurologic/Psychiatric: alert, normal mood/affect, oriented x 3 Crainal Nerves: normal hearing, normal speech, PERRL Motor/Sensory: no motor deficit, no sensory deficit Skin: normal color, warm/dry Stroke Onset of Symptoms Date of Onset of Symptoms: Jun 22, 2018 Time of Symptom Onset: 12:50 Onset of Symptoms: Yes Symptoms onset unknown: Yes NIH Stroke Scale Assessment Select: Initial Level of Consciousness: 0=Alert (0), Level of Consciousness- Questions: 0=Answers both month/age (0), LOC Commands: 0=Performs both tasks (0) , Gaze: Normal (0), Visual Rodriguez: 0=No visual loss (0), Facial Movement ( Facial Paresis): 0=Normal symmetrical mnt (0), Motor Function-Arms Right: 0=No drift (0), Motor Function-Arms Left: 0=No drift (0), Total: 0 Progress/Results/Core Measures Results/Orders Lab Results Laboratory Tests Test 8/8/18 13:05 Range/Units White Blood Count 6.7 4.3-11.0 10^3/uL Red Blood Count 4.09 L 4.35-5.85 10^6/uL Hemoglobin 13.3 13.3-17.7 G/DL Hematocrit 37 L 40-54 % Mean Corpuscular Volume 91 80-99 FL Mean Corpuscular Hemoglobin 33 25-34 PG Mean Corpuscular Hemoglobin Concent 36 32-36 G/DL Red Cell Distribution Width 13.4 10.0-14.5 % Platelet Count 259 130-400 10^3/uL Mean Platelet Volume 10.7 H 7.4-10.4 FL Neutrophils (%) (Auto) 74 42-75 % Lymphocytes (%) (Auto) 16 12-44 % Monocytes (%) (Auto) 9 0-12 % Eosinophils (%) (Auto) 1 0-10 % Basophils (%) (Auto) 1 0-10 % Neutrophils # (Auto) 5.0 1.8-7.8 X 10^3 Lymphocytes # (Auto) 1.1 1.0-4.0 X 10^3 Monocytes # (Auto) 0.6 0.0-1.0 X 10^3 Eosinophils # (Auto) 0.1 0.0-0.3 10^3/uL Basophils # (Auto) 0.0 0.0-0.1 10^3/uL Prothrombin Time 13.6 12.2-14.7 SEC INR Comment 1.0 0.8-1.4 Activated Partial Thromboplast Time 29 24-35 SEC D-Dimer 2.27 H 0.00-0.49 UG/ML Sodium Level 132 L 135-145 MMOL/L Potassium Level 3.3 L 3.6-5.0 MMOL/L Chloride Level 97 L 98-107 MMOL/L Carbon Dioxide Level 29 21-32 MMOL/L Anion Gap 6 5-14 MMOL/L Blood Urea Nitrogen 9 7-18 MG/DL Creatinine 0.66 0.60-1.30 MG/DL Estimat Glomerular Filtration Rate > 60 BUN/Creatinine Ratio 14 Glucose Level 48 *L 70-105 MG/DL Glucometer 51 *L 70-110 MG/DL Calcium Level 8.2 L 8.5-10.1 MG/DL Corrected Calcium 9.5 8.5-10.1 MG/DL Total Bilirubin 0.3 0.1-1.0 MG/DL Aspartate Amino Transf (AST/SGOT) 26 5-34 U/L Alanine Aminotransferase (ALT/SGPT) 18 0-55 U/L Alkaline Phosphatase 77 40-136 U/L Troponin I < 0.30 <0.30 NG/ML Total Protein 4.1 L 6.4-8.2 GM/DL Albumin 2.4 L 3.2-4.5 GM/DL My Orders Orders - ANA M CANTU APRN Cbc With Automated Diff (06/22/18 13:12) Protime With Inr (06/22/18 13:12) Partial Thromboplastin Time (06/22/18 13:12) Comprehensive Metabolic Panel (06/22/18 13:12) Fibrin Degradation Products (06/22/18 13:12) Troponin I (06/22/18 13:12) Ua Culture If Indicated (06/22/18 13:12) Chest 1 View, Ap/Pa Only (06/22/18 13:12) Ekg Tracing (06/22/18 13:12) Nothing By Mouth (06/22/18 Dinner) Accucheck Stat ONCE (06/22/18 13:12) Saline Lock/Iv-Start (06/22/18 13:12) Saline Lock/Iv-Start (06/22/18 13:12) Vital Signs Stroke Patient Q15M (06/22/18 13:12) Ct Head Wo-R/O Stroke (06/22/18 13:12) O2 (06/22/18 13:12) Intake & Output 06,14,22 (06/22/18 13:12) Monitor-Rhythm Ecg Trace Only (06/22/18 13:12) Dysphagia Screening Tool (06/22/18 13:12) Post Thrombolytic Adminstratio (06/22/18 13:12) Lipid Panel (06/23/18 06:00) D50w (Emergency) Syringe (Dextrose 50% 5 (06/22/18 13:15) Dys2 Mechanically Altered (06/22/18 Lunch) Accucheck Stat ONCE (06/22/18 13:56) Medications Given in ED Current Medications Medications Dose Ordered Sig/Ashlyn Route Start Time Stop Time Status Last Admin Dose Admin Dextrose 25 ml ONCE ONCE IV 06/22/18 13:15 06/22/18 13:16 DC 06/22/18 13:10 25 ML Vital Signs/I&O 06/22/18 13:10 Temp 96.7 Pulse 66 Resp 20 B/P (MAP) 147/85 (105) Pulse Ox 98 Diagnostic Imaging Diagonstic Imaging: Xray Comments NAME: [facility] REC#: [id number] PT STATUS: REG ER : 1940 PHYSICIAN: ANA M CANTU APRN ADMIT DATE: 06/22/18/ER Draft Date of Exam:06/22/18 CT HEAD WO-R/O STROKE Indication: Diaphoresis and confusion with generalized weakness. Correlation is made with prior study from 06/20/2017. Ventricles and sulci appear appropriate for the patient's age. No sulcal effacement is identified. There is no midline shift. No acute intra-axial or extra-axial hemorrhage is detected. Cisterns are patent. The visualized paranasal sinuses are clear. Impression: No acute intracranial process is detected. Dictated on workstation # [id number] Dict: 06/22/18 1340 Trans: 06/22/18 1344 CVB [id number] Interpreted by: DIEGO ARIAS MD Electronically signed by: Departure Communication (Admissions) [id number] states that he feels much better and back to normal at this time. His general weakness is resolved, the tingling in his feet is gone. He is ambulatory without any unsteadiness or antalgic gait. The d-dimer being elevated is nonspecific but could be explained by his esophageal erosions recently. He denies any chest pain shortness of breath and he is 97% on room air. He is sinus rhythm here. He states that he had is carotid Doppler done about a year ago at [place] showing 15% occlusion. Impression Primary Impression: Hypoglycemia Disposition: 01 HOME, SELF-CARE Condition: Improved Admissions Decision to Admit Reason: Admit from ER (General) Departure-Patient Inst. Decision time for Depature: 14:39 Referrals: CATALINO WILSON DO (PCP) Primary Care Physician Patient Instructions: HYPOGLYCEMIA Add. Discharge Instructions: 1. Return to ER for any concerns 2. Follow-up with your doctor within 48 hours for recheck. All discharge instructions reviewed with patient and/or family. Voiced understanding. Copy Copies To 1: YANNA STOVALL PETER J APRN Jun 22, 2018 13:22
[2018-06-22 13:30] LABS: FIBRIN DEGRADATION PRODUCTS 2.27 UG/ML (0.00-0.49); PROTHROMBIN TIME PATIENT 13.6 SEC (12.2-14.7)
--- NOTE | 2018-06-22 13:33 | Diagnostic Imaging Report ---
INDICATION: Possible stroke. Patient has history of coronary artery disease. TIME OF EXAM: 1:22 p.m. Correlation is made with prior chest radiograph from 05/13/2018. There are changes of median sternotomy and CABG. Left ventricular prominence is unchanged. No infiltrates are seen. There is no evidence of congestive failure. No effusion or pneumothorax is detected. IMPRESSION: No acute cardiopulmonary process is detected. Dictated by: Dictated on workstation # [id number]
[2018-06-22 13:35] LABS: ALANINE AMINOTRANSFERASE 18 U/L (0-55); ALBUMIN 2.4 GM/DL (3.2-4.5); ALKALINE PHOSPHATASE 77 U/L (40-136); BILIRUBIN,TOTAL 0.3 MG/DL (0.1-1.0); BUN/CREATININE RATIO 14; CALCIUM 8.2 MG/DL (8.5-10.1); CARBON DIOXIDE 29 MMOL/L (21-32); CHLORIDE 97 MMOL/L (98-107); CREATININE SERUM 0.66 MG/DL (0.60-1.30); GFR ESTIMATED > 60; POTASSIUM 3.3 MMOL/L (3.6-5.0); SODIUM 132 MMOL/L (135-145); TOTAL PROTEIN 4.1 GM/DL (6.4-8.2)
[2018-06-22 13:41] LABS: GLUCOSE 48 MG/DL (70-105)
--- NOTE | 2018-06-22 13:45 | Diagnostic Imaging Report ---
Indication: Diaphoresis and confusion with generalized weakness. Correlation is made with prior study from 06/20/2017. Ventricles and sulci appear appropriate for the patient's age. No sulcal effacement is identified. There is no midline shift. No acute intra-axial or extra-axial hemorrhage is detected. Cisterns are patent. The visualized paranasal sinuses are clear. Impression: No acute intracranial process is detected. Dictated by: Dictated on workstation # [id number]
--- OUTSIDE RECORDS SUMMARY | 2018-06-22 14:13 | XMS REPORT | Encounter Summary ---
Author Author [facility] Organization [facility] Address Unknown Phone Unavailable Care Team Providers Care Hide Examiner Name Role Phone Sae Gu MD PCP Reason for Visit * Reason Comments Test/procedure Encounter Details Date Type Department Care Team Description 05/20/2018 Clinical [facility] Nikita Armijo MD Muscle weakness; Support Physicians-Neurology [address] [facility] Neuropathy [facility] [place] [address] [address] [facility] [phone] [place] [address] Social History Tobacco Use Types Packs/Day Years Used Date Never Smoker Smokeless Tobacco: Never Used Alcohol Use Drinks/Week oz/Week Comments Yes Very Rare Sex Assigned at Date Recorded Not on file as of this encounter Plan of Treatment Not on fileas of this encounter Visit Diagnoses Diagnosis Muscle weakness Muscle weakness (generalized) Neuropathy Mononeuritis of unspecified site
--- OUTSIDE RECORDS SUMMARY | 2018-06-22 14:13 | XMS REPORT | Encounter Summary ---
Author Author [facility] Organization [facility] Address Unknown Phone Unavailable Care Team Providers Care Bee Robber Name Role Phone Sae Gu MD PCP Reason for Referral * Radiology Services Status Reason Specialty Diagnoses / Referred By Referred To Procedures Contact Contact New Request Radiology Diagnoses Doctor, Other Miscellaneous proteinuria P rocedures IR RENAL BIOPSY Encounter Details Date Type Department Care Team Description 06/22/2018 Orders Only [facility] Zach Mcghee RN Other proteinuria Hospital Radiology (Primary Dx) [address] [place] [address] Social History Tobacco Use Types Packs/Day Years Used Date Never Smoker Smokeless Tobacco: Never Used Alcohol Use Drinks/Week oz/Week Comments Yes Very Rare Sex Assigned at Date Recorded Not on file as of this encounter Plan of Treatment Name Priority Associated Diagnoses Order Schedule IR RENAL BIOPSY Routine Other proteinuria Expected: 06/22/2018 (Approximate), Expires: 06/22/2019 as of this encounter Visit Diagnoses Diagnosis Other proteinuria - Primary
--- OUTSIDE RECORDS SUMMARY | 2018-06-22 14:13 | XMS REPORT | Encounter Summary ---
Author Author [facility] Organization [facility] Address Unknown Phone Unavailable Care Team Providers Care Optical Advisor Name Role Phone Sae Gu MD PCP Reason for Referral * Consult, Test & Treat Status Reason Specialty Diagnoses / Referred By Referred To Procedures Contact Contact No Auth Needed Cardiology Diagnoses Nikita Armijo MD Bhg Card Hrt Idiopathic [address] [facility] neuropathy [place], [place] [id number] Orthostatic [phone] lightheadedness Phone: [place] Neuropathy [phone] P Phone: [employer] [phone] AUTONOMIC TESTING WITH TILT NM CARDIOVASCULAR FUNCTION EVAL W/TILT TABLE W/MNTR Reason for Visit * Reason Comments Weakness Encounter Details Date Type Department Care Team Description 06/06/2018 Office Visit [facility] Nikita Armijo MD Neuropathy (Primary Dx); Physicians-Neurology [address] Muscle weakness; [facility] [place] [address] [address] [phone] lightheadedness; [place], [place] Idiopathic progressive [phone] neuropathy [phone] Social History Tobacco Use Types Packs/Day Years Used Date Never Smoker Smokeless Tobacco: Never Used Alcohol Use Drinks/Week oz/Week Comments Yes Very Rare Sex Assigned at Date Recorded Not on file as of this encounter Last Filed Vital Signs Vital Sign Reading Time Taken Blood Pressure 105/64 06/06/2018 3:01 PM CDT Pulse 78 06/06/2018 3:01 PM CDT Temperature - - Respiratory Rate 18 06/06/2018 3:01 PM CDT Oxygen Saturation - - Inhaled Oxygen - - Concentration Weight 72.5 kg (159 lb 12.8 oz) 06/06/2018 3:01 PM CDT Height 177.8 cm (5' 10") 06/06/2018 3:01 PM CDT Body Mass Index 22.93 06/06/2018 3:01 PM CDT in this encounter Instructions * Patient Instructions - Nikita Armijo MD - 06/06/2018 2:50 PM CDT I recommend nutritional consult and endocrinology consult Will order autonomic nervous system testing Increase fluid intake to 4 liters per day but incoordination with nutrition and endocrinology to avoid low sodium in this encounter Progress Notes * Nikita Armijo MD - 06/06/2018 2:50 PM CDT Formatting of this note may be different from the original. Date of Service: 06/06/2018 Subjective: Keo Whitt is a 77 y.o. male with weakness. History of Present Illness 77 years old male with neuropathy and weakness who is here for follow-up. His EMG showed myopathic changes only in the iliopsoas but otherwise moderate neuropathy. His CK was 191 but he has low sodium at 128. He has been having orthostatic lightheadedness and he thinks that his symptoms are consistent with POTS. He has been getting better nutrition which helped. He had less episodes of lightheadedness over the weekend and feels stronger in his lower extremities. He discussed his low sodium with his primary care physician who did not have any further suggestions. He is following with a optimization engineer who found that he had left ventricle hypertrophy. He continues to have diarrhea. He is currently on liquid diet supported with minerals and vitamins. Review of Systems Eyes: Positive for photophobia, discharge, itching and visual disturbance. Gastrointestinal: Positive for diarrhea. Endocrine: Positive for cold intolerance and polyphagia. Musculoskeletal: Positive for gait problem. Skin: Positive for rash. Allergic/Immunologic: Positive for food allergies. Neurological: Positive for light-headedness and numbness. Hematological: Bruises/bleeds easily. Psychiatric/Behavioral: Positive for sleep disturbance. Objective: ascorbate calcium (ROSA M-C PO) Take 1,000 mg by mouth daily. aspirin EC 81 mg tablet Take 81 mg by mouth daily. coenzyme Q10(+) 200 mg capsule Take 400 mg by mouth daily. omega-3 fatty acids/fish oil (FISH OIL OMEGA 3-6-9 PO) Take by mouth daily. REPATHA SURECLICK 140 mg/mL injectable PEN Inject 140 mg to area(s) as directed every 14 days. Vit A,C,A-Nbav-Ertzrs (ICAPS AREDS) 14,320-226-200 ojdt-fn-llgh cap Take by mouth daily. VITAMIN D 50,000 unit capsule Take 50,000 Units by mouth twice daily. Vitals: 06/06/18 1501 BP: 105/64 Pulse: 78 Resp: 18 Weight: 72.5 kg (159 lb 12.8 oz) Height: 177.8 cm (70") There is no height or weight on file to calculate BMI. Physical Exam General: No acute distress. HEENT: No eye discharges. distorted pupils and non-reactive (cataratc surg). Cardiac: Regular. Abdominal: Soft. Non tender to palpate. Extremities: + edema Neurological Examination MS: Patient is alert and oriented Speech: Normal Cranial Nerves: CN III, IV and : Intact EOM CN V: Normal facial sensation CN VIII: Normal hearing CN IX and X: Symmetric palatal elevation CN XI: Normal CN XII: Tongue strength 5/5. No atrophy or fasciculations Muscular examination: Kinetic tremor Inspection: No fasciculation Mild atrophy in the thighs R L R L Orb. Oculi 5 5 Neck Flex 5 Orb. Elisabeth 5 5 Neck Ext 5 Shoulder Abd 5 5 Hip Flex 4 4 Elbow Flex 5 5 Hip Ext Elbow Ext 5 5 Hip Abd 5 5 Wrist Flex 5 5 Hip Add 5 5 Wrist Ext 5 5 Knee Ext 5- 5- Finger Flex 5 5 Knee Flex 5 5 Finger Ext 5 5 Ank. Dorsiflex 5 5 Finger Abd 4 4 Ank. Plantar Flex 5 5 Thumb Abd 5 5 Ank. Eversion Thumb Ext Ank. Inversion Thumb Add Toe Ext 4 4 FDP 4+ 4+ Toe flex 4+ 4+ Reflexes: Jaw: 2 R L R L Biceps 2 2 Patellar 1 1 Triceps 2 2 Ankle 0 0 Brachioradialis 2 2 Lozano Neg Neg Planter Downgoing Downgoing Tone: Normal Sensory examination: Light touch: Normal Pinprick: R L UEs Wrist fingers LEs Knee Knee Vibration: R L Fingers >20 >20 Toes 3 sec 3 sec Proprioception: R L Fingers Normal Normal Toes dec to small move dec to small move Cerebellar: FTN: Normal HTS: Abnormal Gait: Normal casual gait. able to do heel and toe walking Difficult to do tandem gait Romberg: Wobbly but no fall Patient is unable to stand from seating position without arm support Assessment and Plan: The patient strength has improved comparing to last evaluation which could be secondary to improved nutrition. Considering that and the possible low yield of muscle biopsy, I would not proceed with that at this point. His myomarker 3 , cN1A antibody and HMG CR antibody were all negative. He also had orthostatic lightheadedness which could be a secondary phenomenon considering low-sodium but could also be related to his neuropathy. I highly recommend nutritional and endocrinology consult through his primary care physician to optimize nutrition and to find out the cause of his hyponatremia which could be also the cause of his orthostatic hypotension. He also has mildly elevated TSH Meanwhile, I will obtain autonomic nervous system testing. Will see him back in 6 weeks and at that point I may proceed with referral to physical therapy if we have a clear picture of the ongoing process. Muscle biopsy would be considered if there is worsening of his strength. Increase fluid intake but with sodium Orders Placed This Encounter AUTONOMIC TESTING WITH TILT Total time 40 minutes. Estimated counseling time 25 minutes. 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
--- OUTSIDE RECORDS SUMMARY | 2018-06-22 14:13 | XMS REPORT | Encounter Summary ---
Author Author [facility] Organization [facility] Address Unknown Phone Unavailable Care Team Providers Care Reiki Practitioner Name Role Phone Sae Gu MD PCP Reason for Visit * Reason Comments General Question Encounter Details Date Type Department Care Team Description 06/02/2018 Telephone [facility] Alyssa Augustin LPN General Question Physicians-Neurology [facility] [address] [place] [phone] Social History Tobacco Use Types Packs/Day Years Used Date Never Smoker Smokeless Tobacco: Never Used Alcohol Use Drinks/Week oz/Week Comments Yes Very Rare Sex Assigned at Date Recorded Not on file as of this encounter Miscellaneous Notes * Telephone Encounter - Alyssa Augustin LPN - 06/02/2018 3:41 PM CDT Patient called concerned for patient - noting that he has been having frequent episodes of "passing out". She states that he "feels groggy in the mornings and throughout the day" and "notices when he is about to pass out and is able to sit down and let it pass after a few moments". He has not fallen nor hit his head for any of this. Patient does see a cycle repairer, whom has not prescribed the patient any medications. Lowest BP can recall is 91/59 on Wednesday - but when it was retaken a few moments later it was "back to normal". Patient has also had multiple EKG's and have all came back normal according to his . They have an appointment with Dr. Armijo Wednesday afternoon and wanted him to be aware of this new symptoms. Will route for his information and recommendation. * Telephone Encounter - Alyssa Augustin LPN - 06/02/2018 3:20 PM CDT Ashley patients , left voicemail requesting a call back. I returned patients call and was unable to leave a voicemail on her phone, so I called the patient directly and was unable to reach him at this time, LVM with call back number to answer any questions. in this encounter Plan of Treatment Not on fileas of this encounter Visit Diagnoses Not on filein this encounter
--- OUTSIDE RECORDS SUMMARY | 2018-06-22 14:13 | XMS REPORT | Encounter Summary ---
Author Author [facility] Organization [facility] Address Unknown Phone Unavailable Care Team Providers Care Line Mechanic Name Role Phone Sae Gu MD PCP Reason for Visit * Reason Comments New Patient * Consult, Test & Treat (Routine) Status Reason Specialty Diagnoses / Referred By Referred To Procedures Contact Contact No Auth Needed Specialty Neurology Diagnoses Aleksander Gu Duaa, MD Services PERIPHERAL Sae Maldonado III, [address] Required NEUROPATHY, [place], [place] MYOPATHY. [address] [place] [address] REF BY [place], [place] Phone: [phone] SIA-PCP. Phone: [phone] rocedures Fax: NEW PATIENT [phone] Encounter Details Date Type Department Care Team Description 05/20/2018 Office Visit [facility] Nikita Armijo MD Neuropathy; Physicians-Neurology [address] Muscle weakness; [facility] [place] [address] Myalgia ; [address] [phone] [place] [phone] Social History Tobacco Use Types Packs/Day Years Used Date Never Smoker Smokeless Tobacco: Never Used Alcohol Use Drinks/Week oz/Week Comments Yes Very Rare Sex Assigned at Date Recorded Not on file as of this encounter Last Filed Vital Signs Vital Sign Reading Time Taken Blood Pressure 158/99 05/20/2018 10:11 AM CDT Pulse 69 05/20/2018 10:11 AM CDT Temperature - - Respiratory Rate - - Oxygen Saturation - - Inhaled Oxygen - - Concentration Weight 71.8 kg (158 lb 6.4 oz) 05/20/2018 10:11 AM CDT Height 177.8 cm (5' 10") 05/20/2018 10:11 AM CDT Body Mass Index 22.73 05/20/2018 10:11 AM CDT in this encounter Instructions * Patient Instructions - Nikita Armijo MD - 05/20/2018 10:00 AM CDT There is evidence of neuropathy (nerve disease) on examination but there is also weakness in the muscles close to your body suggestive of muscle disorder. We will proceed with nerve conduction study and electromyogram to evaluate the nerves and muscles and will also proceed with blood test to evaluate for causes of both disorders. Depending on the results will determine the next step which may include muscle biopsy or genetic testing or other tests in this encounter Progress Notes * Nikita Armijo MD - 05/20/2018 10:00 AM CDT Formatting of this note may be different from the original. Date of Service: 05/20/2018 Subjective: Keo Whitt is a 77 y.o. male with neuropathy and weakness. History of Present Illness 77 years old male who was referred by Dr. Gu for evaluation of neuropathy and myopathy and possible muscle biopsy. The patient reports that 2 years ago he started noticing difficulty standing from a chair and squatting. This has been progressive since. He also describes tightness in the legs and losing strength and muscle mass. He also describes some weakness in the arms but not as much as the legs. He denies any difficulty swallowing or difficulty breathing. He did report patch of numbness in the lateral aspect of the right thigh but otherwise he denies numbness and sensory symptoms in the lower extremities. He reports 5 falls before where he collapsed suddenly. There is no clear dizziness associated with this but it improved after they changed his blood pressure medication. He smokes cannabis which helped with his symptoms and give him relief. This also improves his energy. He denies smoking or alcohol abuse. He had cervical surgery before to remove the cyst. He denies any urinary or fecal incontinence. Has history of macular degeneration in the right eye. He also noticed edema in the lower extremities. Reports having esophageal ulcers before and had a lot of chiropractor work on his neck in the past. Father had history of ALS. No other family history of neuromuscular disorders. The patient had recent myoglobin in the blood which was found to be elevated. He was on statin for 4 years which was stopped couple of months ago. External EMG showed severe neuropathy but there was no evidence of myopathy on needle EMG. Review of Systems Constitutional: Positive for fatigue. HENT: Positive for hearing loss. Eyes: Positive for photophobia and visual disturbance. Respiratory: Positive for cough and shortness of breath. Cardiovascular: Positive for leg swelling. Musculoskeletal: Positive for neck stiffness. Skin: Positive for pallor. Neurological: Positive for dizziness, syncope, weakness and light-headedness. Psychiatric/Behavioral: Positive for sleep disturbance. All other systems reviewed and are negative. Objective: ascorbate calcium (ROSA M-C PO) Take [...] area(s) as directed every 14 days. Vit A,C,L-Gtyx-Luczvw (ICAPS AREDS) 14,320-226-200 kfsa-hr-vjlg cap Take by mouth daily. VITAMIN D 50,000 unit capsule Take 50,000 Units by mouth twice daily. Vitals: 05/20/18 1011 BP: (!) 158/99 Pulse: 69 Weight: 71.8 kg (158 lb 6.4 oz) Height: 177.8 cm (70") Body mass index is 22.73 kg/m. Physical Exam General Examination: Vitals: Vitals: 05/20/18 1011 BP: (!) 158/99 Pulse: 69 General: No acute distress. HEENT: No eye [...] 5 Hip Flex 4 4 Elbow Flex 4 4 Hip Ext Elbow Ext 4+ 4+ Hip Abd 4+ 4+ Wrist Flex 5 5 Hip Add 4+ 4+ Wrist Ext 5 5 Knee Ext 5- 5- Finger Flex 5 5 Knee Flex 4+ 4+ Finger Ext 5 5 Ank. Dorsiflex 5 5 Finger Abd 4 4 Ank. Plantar Flex 5 5 Thumb Abd 5 5 Ank. Eversion Thumb Ext Ank. Inversion Thumb Add Toe Ext 4 4 FDP 4 4 Toe flex 4+ 4+ Reflexes: Jaw: 2 R L R L Biceps 2 2 Patellar 1 1 Triceps 2 2 Ankle 0 0 Brachioradialis 2 2 Lozano Neg Neg Planter Downgoing Downgoing Tone: Normal Sensory examination: Light touch: Normal Pinprick: R L UEs Wrist fingers LEs Knee Knee Vibration: R L Fingers >20 >20 Toes ankle mid-foot Proprioception: R L Fingers Normal Normal Toes dec to small move dec to small move Cerebellar: FTN: Normal HTS: Abnormal Gait: Normal casual gait. able to do heel and toe walking Difficult to do tandem gait Romberg: Wobbly but no fall Patient is unable to stand from seating position without arm support Assessment and Plan: The patient examination shows evidence of neuropathy but there is also proximal weakness in the lower more than the upper extremities suggestive of myopathy. The etiology of either one is unknown at this point and I recommended proceeding with screening tests to look for an etiology. Different hereditary, degenerative and acquired etiologies can cause neuropathy, myopathy or both. I will also repeat the nerve conduction study and EMG to evaluate for any other findings. Depending on the screening tests, will determine the next step which may include muscle biopsy, genetic testing or other tests. Orders Placed This Encounter CBC AND DIFF COMPREHENSIVE METABOLIC PANEL ANTI-NUCLEAR ANTIBODY(JEMIMA) IMMUNOFIXATION, SERUM (IFES) HEMOGLOBIN A1C RHEUMATOID FACTOR (RF) TSH WITH FREE T4 REFLEX VITAMIN B12 METHYLMALONIC ACID QUANT 25-OH VITAMIN D (D2 + D3) CREATINE KINASE-CPK MISCELLANEOUS LAB TEST today MISCELLANEOUS LAB TEST today MISCELLANEOUS LAB TEST today EMG ORDER Total time 60 minutes. Estimated counseling time 35 minutes. Counseled patient regarding recommended approach to his neuropathy and weakness Nikita Armijo MD Tool Keeper Neurology/Neuromuscular Medicine in this encounter Plan of Treatment Name Priority Associated Diagnoses Order Schedule CBC AND DIFF Routine Neuropathy Ordered: 05/20/2018 Muscle weakness COMPREHENSIVE METABOLIC PANEL Routine Neuropathy Ordered: 05/20/2018 Muscle weakness ANTI-NUCLEAR ANTIBODY(JEMIMA) Routine Neuropathy Ordered: 05/20/2018 Muscle weakness IMMUNOFIXATION, SERUM (IFES) Routine Neuropathy Ordered: 05/20/2018 Muscle weakness HEMOGLOBIN A1C Routine Neuropathy Ordered: 05/20/2018 Muscle weakness Hyperglycemia RHEUMATOID FACTOR (RF) Routine Neuropathy Ordered: 05/20/2018 Muscle weakness TSH WITH FREE T4 REFLEX Routine Neuropathy Ordered: 05/20/2018 Muscle weakness VITAMIN B12 Routine Neuropathy Ordered: 05/20/2018 Muscle weakness METHYLMALONIC ACID QUANT Routine Neuropathy Ordered: 05/20/2018 Muscle weakness 25-OH VITAMIN D (D2 + D3) Routine Myalgia Ordered: 05/20/2018 Neuropathy Muscle weakness CREATINE KINASE-CPK Routine Neuropathy Ordered: 05/20/2018 Muscle weakness as of this encounter Results * MISCELLANEOUS LAB TEST (05/20/2018) Specimen Blood Narrative Performed At Performing Organization Address City/[facility] Phone Number OTHER OUTSIDE LAB * MISCELLANEOUS LAB TEST (05/20/2018) Specimen Blood Narrative Performed At Performing Organization Address [facility] Phone Number OTHER OUTSIDE LAB * MISCELLANEOUS LAB TEST (05/20/2018) Specimen Blood Narrative Performed At Performing Organization Address [facility] Phone Number OTHER OUTSIDE LAB in this encounter Visit Diagnoses Diagnosis Neuropathy Mononeuritis of unspecified site Muscle weakness Muscle weakness (generalized) Myalgia Mylagia and myositis, unspecified Hyperglycemia Other abnormal glucose
--- OUTSIDE RECORDS SUMMARY | 2018-06-22 14:13 | XMS REPORT | Encounter Summary ---
Author Author [facility] Organization [facility] Address Unknown Phone Unavailable Care Team Providers Care Lifts And Cranes Inspector Name Role Phone Sae Gu MD PCP Encounter Details Date Type Department Care Team Description 06/13/2018 Orders Only [facility] Nikita Armijo MD Physicians-Neurology [address] [facility] [place] [address] [address] [facility] [phone] [place] [address] Social History Tobacco Use Types Packs/Day Years Used Date Never Smoker Smokeless Tobacco: Never Used Alcohol Use Drinks/Week oz/Week Comments Yes Very Rare Sex Assigned at Date Recorded Not on file as of this encounter Plan of Treatment Not on fileas of this encounter Results * MISCELLANEOUS LAB TEST (06/02/2018) Specimen Blood Narrative Performed At Performing Organization Address City/State/Zipcode Phone Number OTHER OUTSIDE LAB in this encounter Visit Diagnoses Not on filein this encounter
--- OUTSIDE RECORDS SUMMARY | 2018-06-22 14:13 | XMS REPORT | Encounter Summary ---
Author Author [facility] Organization [facility] Address Unknown Phone Unavailable Care Team Providers Care Textile Finisher Name Role Phone Sae Gu MD PCP Encounter Details Date Type Department Care Team Description 05/20/2018 Orders Only [facility] Nikita Armijo MD Physicians - Neurology [address] [facility] [place] [address] [address] [facility] [phone] [place] [address] Social History Tobacco Use Types Packs/Day Years Used Date Never Smoker Smokeless Tobacco: Never Used Alcohol Use Drinks/Week oz/Week Comments Yes Very Rare Sex Assigned at Date Recorded Not on file as of this encounter Plan of Treatment Not on fileas of this encounter Results * FREE T4 (FREE THYROXINE) ONLY (05/20/2018 11:35 AM) T4-Free 1.1 0.8 - 1.8 ng/dL [facility] Comment: Test Performed at: [facility] [id number] [place], [id number] SAE HURLEY DO,MPH Performing Organization Address City/State/[facility] Phone Number [facility] [address] [place] [address] * 25-OH VITAMIN D (D2 + D3) (05/20/2018 11:35 AM) Vitamin D(25-OH)Total 35 30 - 100 ng/mL [facility] Comment: 25-OHD3 indicates both endogenous production and supplementation. 25-OHD2 is an indicator of exogenous sources, such as diet or supplementation. Therapy is based on measurement of Total 25-OHD, with levels <20 ng/mL indicative of Vitamin D deficiency, while levels between 20 ng/mL and 30 ng/mL suggest insufficiency. Optimal levels are > or=30 ng/mL. VITAMIN D3,25-OH 8Comment: Reference Range: Not See Below ng/mL [facility] established Vitamin D2,25-OH 27 See Below ng/mL [facility] Comment: Reference Range: Not established This test was developed and its analytical performance characteristics have been determined by [employer] [facility]. It has not been cleared or approved by the US Food and Drug Administration. This assay has been validated pursuant to the CLIA regulations and is used for clinical purposes. REPORT COMMENT: FASTING:UNKNOWN Test Performed at: [facility] [place] [place] [id number] [place] [address], [id number] NEGRITA BABB MD,PHD Performing Organization Address [facility] Phone Number [facility] [address] [place] [address] * HEMOGLOBIN A1C (05/20/2018 11:35 AM) Hemoglobin A1C 5.0 <5.7 % of total Hgb [facility] Comment: For the purpose of screening for the presence of diabetes: <5.7% Consistent with the absence of diabetes 5.7-6.4%Consistent with increased risk for diabetes (predi abetes) > or=6.5%Consistent with diabetes This assay result is consistent with a decreased risk of diabetes. Currently, no consensus exists regarding use of hemoglobin A1c for diagnosis of diabetes in children. According to [place] Diabetes Association (ADA) guidelines, hemoglobin A1c <7.0% represents optimal control in non- diabetic patients. Different metrics may apply to specific patient populations. Standards of Medical Care in Diabetes(ADA). Test Performed at: [facility] [id number], [id number] SAE HURLEY DO,MPH Performing Organization Address [facility] Phone Number LogMeIn [id number] [employer], [place] [address] * TSH WITH FREE T4 REFLEX (05/20/2018 11:35 AM) TSH 3rd Generation 6.22 (H) 0.40 - 4.50 mIU/L [facility] Comment: Test Performed at: [facility] [id number] [employer], [id number] SAE HURLEY DO,MPH Performing Organization Address [facility] Phone Number [facility]MeIn [phone] [employer] [place] [address] * VITAMIN B12 (05/20/2018 11:35 AM) Vitamin B12 974 200 - 1100 pg/mL [facility] Comment: Test Performed at: SendMe [id number] [employer] CATHI, [id number] SAE HURLEY DO,MPH Performing Organization Address [facility] Phone Number [facility] [address] [place], [place] [address]ner [facility] [place] [address] * RHEUMATOID FACTOR (RF) (05/20/2018 11:35 AM) Rheum Factor Screen <14 <14 IU/mL [facility] Comment: Test Performed at: SendMe [id number], [id number] SAE HURLEY DO,MPH Performing Organization Address [facility] Phone Number [facility]In [address] [place], [place] [address]ner [facility] [place] [address] * IMMUNOFIXATION, SERUM (IFES) (05/20/2018 11:35 AM) Immuno Fix-Serum SEE NOTE [facility] Comment: Normal pattern. No monoclonal proteins detected. Test Performed at: SendMe [id number] [employer]YSZTOFChirpify, [id number] SAE HURLEY DO,MPH Performing Organization Address [facility] Phone Number [facility]MeIn [address] [place] [address] * ANTI-NUCLEAR ANTIBODY(JEMIMA) (05/20/2018 11:35 AM) JEMIMA Screen NEGATIVE NEGATIVE [facility]In Comment: JEMIMA IFA is a first line screen for detecting the presence of up to approximately 150 autoantibodies in various autoimmune diseases. A negative JEMIMA IFA result suggests JEMIMA-associated autoimmune diseases are not present at this time. Visit Physician FAQs for interpretation of all antibodies in the [place], prevalence, and association with diseases at http://education.Quintura.com/ faq/JFN593 Test Performed at: SendMe [address] [employer] [place]YS[place]TOFFetch It[place], [id number] SAE HURLEY DO,MPH Performing Organization Address [facility] Phone Number [facility]In [address] [place] [address] * CBC AND DIFF (05/20/2018 11:35 AM) White Blood Cells 7.5 3.8 - 10.8 Thousand/uL [facility] RBC 4.35 4.20 - 5.80 Million/uL [facility] Hemoglobin 14.1 13.2 - 17.1 g/dL [facility] Hematocrit 41.6 38.5 - 50.0 % [facility] MCV 95.6 80.0 - 100.0 fL [facility] MCH 32.4 27.0 - 33.0 pg [facility] MCHC 33.9 32.0 - 36.0 g/dL [facility] RDW 12.3 11.0 - 15.0 % [facility] Platelet Count 294 140 - 400 Thousand/uL [facility] MPV 11.0 7.5 - 12.5 fL [facility] Absolute Neutrophil Count 5910 1500 - 7800 cells/uL [facility] Absolute Lymph Count 1013 850 - 3900 cells/uL [facility] Absolute Monocyte Count 480 200 - 950 cells/uL [facility] Absolute Eosinophil Count 60 15 - 500 cells/uL [facility] Absolute Basophil Count 38 0 - 200 cells/uL [facility] Neutrophils 78.8 % [facility] Lymphocytes 13.5 % [facility] Monocytes 6.4 % [facility] Eosinophils 0.8 % [facility] Basophils 0.5 % [facility] Comment: Test Performed at: SendMe [id number] [employer], [id number] SAE HURLEY DO,MPH Performing Organization Address [facility] Phone Number [facility]In [address] [place] [address] * METHYLMALONIC ACID, SERUM (05/20/2018 11:35 AM) Methylmalonic Acid 158 87 - 318 nmol/L [facility] Comment: Test Performed at: LogMeIn/[id number] ELIZABET HOWARD MD,PHD Performing Organization Address [facility] Phone Number [facility]In [address] [place] [address] * CREATINE KINASE-CPK (05/20/2018 11:35 AM) Creatine Kinase 191 44 - 196 U/L [facility] Comment: Test Performed at: [employer] [address] [employer], [id number] SAE HURLEY DO,MPH Performing Organization Address [facility]/State/Zipcode Phone Number [facility]MeIn [address] [place] [address] * COMPREHENSIVE METABOLIC PANEL (05/20/2018 11:35 AM) Glucose 92 65 - 99 mg/dL [facility] Comment: Fasting reference interval Blood Urea Nitrogen 15 7 - 25 mg/dL [facility] Creatinine 0.74 0.70 - 1.18 mg/dL [facility] Comment: For patients >49 years of age, the reference limit for Creatinine is approximately 13% higher for people identified as -[place]. eGFR Non 89 > OR=60 mL/min/1.73m2 [facility] eGFR 103 > OR=60 mL/min/1.73m2 [facility] BUN/Creatinine Ratio NOT APPLICABLE 6 - 22 (calc) [facility] Sodium 128 (L) 135 - 146 mmol/L [facility] Potassium 4.5 3.5 - 5.3 mmol/L [facility] Chloride 93 (L) 98 - 110 mmol/L [facility] CO2 28 20 - 31 mmol/L [facility] Calcium 8.0 (L) 8.6 - 10.3 mg/dL [facility] Total Protein 4.1 (L) 6.1 - 8.1 g/dL [facility] Albumin 2.2 (L) 3.6 - 5.1 g/dL [facility] Globulin 1.9 1.9 - 3.7 g/dL (calc) [email or web address] Albumin/Globulin Ratio 1.2 1.0 - 2.5 (calc) [facility] Total Bilirubin 0.3 0.2 - 1.2 mg/dL [facility] Alk Phosphatase 57 40 - 115 U/L [facility] AST (SGOT) 25 10 - 35 U/L [facility] ALT (SGPT) 17 9 - 46 U/L [facility] Comment: Test Performed at: SendMe [id number] [employer] KRZYSZTOFChirpify, [id number] SAE HURLEY DO,MPH Performing Organization Address City/State/Zipcode Phone Number LogMeIn [address] [place] [address] in this encounter Visit Diagnoses Not on filein this encounter
--- OUTSIDE RECORDS SUMMARY | 2018-06-22 14:13 | XMS REPORT | Clinical Summary ---
Author Author [facility] Organization [facility] Address Unknown Phone Unavailable Care Team Providers Care Middle School Director Name Role Phone Sae Gu MD PCP Source Comments Some departments are not documenting in the electronic medical record. If you do not see the information that you expected, contact Release of Information in the Health Information Management department at [phone] for further assistance in locating additional records.[facility] Allergies No Known Allergies Current Medications Prescription Sig. Disp. Refills Start End Date Status Date REPATHA SURECLICK 140 Inject 140 mg to area(s) 05/05/20 Active mg/mL injectable PEN as directed every 14 18 days. VITAMIN D 50,000 unit Take 50,000 Units by 04/27/20 Active capsule mouth twice daily. 18 ascorbate calcium Take 1,000 mg by mouth Active (ROSA M-C PO) daily. aspirin EC 81 mg tablet Take 81 mg by mouth Active daily. coenzyme Q10(+) 200 mg Take 400 mg by mouth Active capsule daily. omega-3 fatty acids/fish Take by mouth daily. Active oil (FISH OIL OMEGA 3-6-9 PO) Vit A,C,K-Jnux-Kyjnbd Take by mouth daily. 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 Telephone Neurology Alyssa Augustin LPN General Question 05/23/2018 Telephone Neurology Nikita Armijo MD Results 05/20/2018 Clinical Neurology Nikita Armijo MD Muscle weakness; Support Neuropathy 05/20/2018 Office Visit Neurology Nikita Armijo MD Neuropathy; Muscle weakness; Myalgia ; Hyperglycemia 05/20/2018 Orders Only Neurology Nikita Armijo MD from Last 3 Months Family History Medical History Relation Name Comments Motor Neuron Disease Father Relation Name Status Comments Father Mother Social History Tobacco Use Types Packs/Day Years Used Date Never Smoker Smokeless Tobacco: Never Used Alcohol Use Drinks/Week oz/Week Comments Yes Very Rare Sex Assigned at Date Recorded Not on file Last Filed Vital Signs Vital Sign Reading [...] Mass Index 22.93 06/06/2018 3:01 PM CDT Plan of Treatment Health Maintenance Due Date Last Done Comments PHYSICAL (COMPREHENSIVE) 1947 EXAM PERTUSSIS VACCINE 1951 TETANUS VACCINE 1957 SHINGLES RECOMBINANT 1990 VACCINE (1 of 2) PNEUMONIA (PCV13/PPSV23) 2005 VACCINES (1 of 2 - PCV13) INFLUENZA VACCINE 08/15/2018 Results * MISCELLANEOUS LAB TEST (06/02/2018) Only the most recent of 4 results within the time period is included. Specimen Blood Narrative Performed At Performing Organization Address City/State/Zipcode Phone Number OTHER OUTSIDE LAB * METHYLMALONIC ACID, SERUM (05/20/2018 11:35 AM) Methylmalonic Acid 158 87 - 318 nmol/L [facility] Comment: Test Performed at: [employer] [facility]/[address] ELIZABET HOWARD MD,PHD Performing Organization Address [facility] Phone Number [facility] [address] [place] [address] * TSH WITH FREE T4 REFLEX (05/20/2018 11:35 AM) TSH 3rd Generation 6.22 (H) 0.40 - 4.50 mIU/L [facility] Comment: Test Performed at: [employer], [id number] SAE HURLEY DO,MPH Performing Organization Address [facility] Phone Number [facility] [address] [place] [address] * RHEUMATOID FACTOR (RF) (05/20/2018 11:35 AM) Rheum Factor Screen <14 <14 IU/mL [facility] Comment: Test Performed at: [facility] [id number], [id number] SAE HURLEY DO,MPH Performing Organization Address [facility] Phone Number [facility] [address] [place] [address] * IMMUNOFIXATION, SERUM (IFES) (05/20/2018 11:35 AM) Immuno Fix-Serum SEE NOTE [facility] Comment: Normal pattern. No monoclonal proteins detected. Test Performed at: [facility] [id number], [id number] SAE HURLEY DO,MPH Performing Organization Address [facility] Phone Number [facility] [facility] [address] [place] [address] * 25-OH VITAMIN D (D2 + D3) [...] 8Comment: Reference Range: Not See Below ng/mL [facility] established Vitamin D2,25-OH 27 See Below ng/mL [facility] Comment: Reference Range: Not established This test was developed and its analytical performance characteristics have been determined by [facility]. It has not been cleared or approved by the US Food and Drug Administration. This assay has been validated pursuant to the CLIA regulations and is used for clinical purposes. REPORT COMMENT: FASTING:UNKNOWN Test Performed at: [facility] [id number] [place] [address], [id number] NEGRITA BABB MD,PHD Performing Organization Address [facility] [place] Phone Number [facility] [facility] [address] [place] [address] * CBC AND DIFF (05/20/2018 11:35 AM) [...] Platelet Count 294 140 - 400 Thousand/uL [facility] MPV 11.0 7.5 - 12.5 fL [...] % [facility] Comment: Test Performed at: [facility] [address] [address] [employer] [facility], [id number] SAE HURLEY DO,MPH Performing Organization Address [facility] [place] Phone Number [facility] [address] [employer] [place] [address] * ANTI-NUCLEAR ANTIBODY(JEMIMA) (05/20/2018 11:35 AM) JEMIMA Screen NEGATIVE NEGATIVE [facility] Comment: JEMIMA IFA is a first line screen for detecting the presence of up to approximately 150 autoantibodies in various autoimmune diseases. A negative JEMIMA IFA result suggests JEMIMA-associated autoimmune diseases are not present at this time. Visit Physician FAQs for interpretation of all antibodies in the [place], prevalence, and association with diseases at http://education.[employer].Glu Mobile/ faq/RIC948 Test Performed at: [facility] [id number], [id number] SAE HURLEY DO,MPH Performing Organization Address [facility] [place]/[facility] Phone Number [facility] [phone], [employer]cafe [address] * FREE T4 (FREE THYROXINE) ONLY (05/20/2018 11:35 AM) T4-Free 1.1 0.8 - 1.8 ng/dL [facility] Comment: Test Performed at: [facility] [id number], [id number] SAE HURLEY DO,MPH Performing Organization Address [facility] [place]/[facility] Phone Number [facility] [address] [employer], [employer] [address] * HEMOGLOBIN A1C (05/20/2018 11:35 AM) Hemoglobin A1C 5.0 <5.7 % of total Hgb [facility] Comment: For the purpose of screening for the presence of diabetes: <5.7% Consistent with the absence of diabetes 5.7-6.4%Consistent with increased risk for diabetes (predi abetes) > or=6.5%Consistent with diabetes This assay result is consistent with a decreased risk of diabetes. Currently, no consensus exists regarding use of hemoglobin A1c for diagnosis of diabetes in children. According to [place] Diabetes Association (ADA) guidelines, hemoglobin A1c <7.0% represents optimal control in non- diabetic patients. Different metrics may apply to specific patient populations. Standards of Medical Care in Diabetes(ADA). Test Performed at: [facility] [address] [employer], [id number] SAE HURLEY DO,MPH Performing Organization Address [facility] Phone Number [facility] [address] [employer], [employer] [address] * VITAMIN B12 (05/20/2018 11:35 AM) Vitamin B12 974 200 - 1100 pg/mL [facility] Comment: Test Performed at: [facility] [address] [address] [employer]ZTOF[employer], [id number] SAE HURLEY DO,MPH Performing Organization Address [facility] [place]/[facility] Phone Number [facility] [facility] [address] [place] [address] * CREATINE KINASE-CPK (05/20/2018 11:35 AM) Creatine Kinase 191 44 - 196 U/L [facility] Comment: Test Performed at: [facility] [facility] [place] [address] [facility] KRZYSZTOFCh[employer] Games, [id number] SAE HURLEY DO,MPH Performing Organization Address [facility] Phone Number [facility] [facility] [address] [place] [address] * COMPREHENSIVE METABOLIC PANEL (05/20/2018 11:35 AM) Glucose 92 65 - 99 mg/dL [facility] Comment: Fasting reference interval Blood Urea Nitrogen 15 7 - 25 mg/dL [facility] Creatinine 0.74 0.70 - 1.18 mg/dL [facility] Comment: For patients >49 years of age, the reference limit for Creatinine is approximately 13% higher for people identified as -Macanese. eGFR Non 89 > OR=60 mL/min/1.73m2 [facility] [...] 1.9 1.9 - 3.7 g/dL (calc) [facility] Albumin/Globulin Ratio 1.2 1.0 - 2.5 (calc) [facility] Total Bilirubin 0.3 0.2 - 1.2 mg/dL [facility] Alk Phosphatase 57 40 - 115 U/L [facility] AST (SGOT) 25 10 - 35 U/L [facility] ALT (SGPT) 17 9 - 46 U/L [facility] Comment: Test Performed at: [facility] [address] [facility] KRZYSZTOFWeston, [id number] SAE HURLEY DO,MPH Performing Organization Address City/State/Zipcode Phone Number [facility] [address] [facility] [address] * EMG ORDER (05/20/2018) Narrative Performed At Performing Organization Address City/State/[facility] Phone Number [facility] from Last 3 Months
--- OUTSIDE RECORDS SUMMARY | 2018-06-22 14:13 | XMS REPORT | Encounter Summary ---
Author Author [facility] Address Unknown Phone Unavailable Care Team Providers Care Fitting Room Maintenance Mechanic Name Role Phone Sae Gu MD PCP Encounter Details Date Type Department Care Team Description 06/10/2018 Orders Only [facility] Mi Cutler Neuropathy; Physicians-Neurology Muscle weakness; [facility] Myalgia [address] [place] [address] Social History Tobacco Use Types Packs/Day Years Used Date Never Smoker Smokeless Tobacco: Never Used Alcohol Use Drinks/Week oz/Week Comments Yes Very Rare Sex Assigned at Date Recorded Not on file as of this encounter Plan of Treatment Not on fileas of this encounter Results * MISCELLANEOUS LAB TEST (05/20/2018) Specimen Blood Narrative Performed At Performing Organization Address [facility] Phone Number OTHER OUTSIDE LAB * MISCELLANEOUS LAB TEST (05/20/2018) Specimen Blood Narrative Performed At Performing Organization Address City/[facility] Phone Number OTHER OUTSIDE LAB * MISCELLANEOUS LAB TEST (05/20/2018) Specimen Blood Narrative Performed At Performing Organization Address City/State/Zipcode Phone Number OTHER OUTSIDE LAB in this encounter Visit Diagnoses Diagnosis Neuropathy Mononeuritis of unspecified site Muscle weakness Muscle weakness (generalized) Myalgia Mylagia and myositis, unspecified
--- OUTSIDE RECORDS SUMMARY | 2018-06-22 14:13 | XMS REPORT | Encounter Summary ---
Author Author [facility] Organization [facility] Address Unknown Phone Unavailable Care Team Providers Care Shearer Screen Measurer And Trimmer Name Role Phone Sae Gu MD PCP Reason for Visit * Reason Comments Results Encounter Details Date Type Department Care Team Description 05/23/2018 Telephone [facility] Nikita Armijo MD Results Physicians-Neurology [address] [facility] [place] [address] [address] [facility] [phone] [place] [address] Social History Tobacco Use Types Packs/Day Years Used Date Never Smoker Smokeless Tobacco: Never Used Alcohol Use Drinks/Week oz/Week Comments Yes Very Rare Sex Assigned at Date Recorded Not on file as of this encounter Miscellaneous Notes * Telephone Encounter - Alyssa Augustin LPN - 05/23/2018 3:09 PM CDT Spoke with patient today, he expressed understanding of results set forth by Dr. Armijo. Patient plans to see his PCP very soon and requested that I send these labs to him. I will fax to [phone] Gu. Patient states that he has some edema in his feet and for this reason has cut back salt from his diet. Patient had no other questions at this time, will continue to follow up. * Telephone Encounter - Alyssa Augustin LPN - 05/23/2018 12:32 PM CDT LVM with patient regarding lab results. Call back number was left. in this encounter Plan of Treatment Not on fileas of this encounter Visit Diagnoses Not on filein this encounter
--- OUTSIDE RECORDS SUMMARY | 2018-06-22 14:14 | XMS REPORT | Continuity of Care Document ---
Author Author [facility] Organization [facility] Address Unknown Phone Unavailable Allergies Active Description Code Type Severity Reaction Onset Reported/Identified Relationship to Patient Clinical Status Yes No Known Drug Allergies [id number] Drug Allergy Unknown N/A 11/24/2013 Medications There is no data. Problems Date Dx Coded Attending Type Code Diagnosis Diagnosed By 04/05/2014 TIA GAO MD Ot 562.10 04/05/2014 TIA GAO MD Ot V12.72 04/05/2014 TIA GAO MD Ot V76.51 09/19/2014 CATALINO WILSON DO Ot 724.02 09/19/2014 CATALINO WILSON DO Ot V57.1 10/19/2014 CATALINO WILSON DO Ot 724.02 10/19/2014 CATALINO WILSON DO Ot V57.1 11/08/2014 CATALINO LOO MD Ot V45.81 11/08/2014 CATALINO LOO MD Ot V57.89 11/12/2014 CATALINO LOO MD Ot V45.81 11/12/2014 CATALINO LOO MD Ot V57.89 11/12/2014 YANNA STOVALL DO Ot 786.50 11/12/2014 YANNA STOVALL DO Ot 793.99 11/12/2014 TIA GAO MD Ot V72.84 11/12/2014 CATALINO WILSON DO Ot 724.02 11/12/2014 CATALINO WILSON DO Ot V57.1 11/12/2014 CATALINO LOO MD Ot V45.81 11/12/2014 CATALINO LOO MD Ot V57.89 11/12/2014 CATALINO LOO MD Ot V45.81 11/12/2014 CATALINO LOO MD Ot V57.89 11/19/2014 CATALINO LOO MD Ot V45.81 11/19/2014 CATALINO LOO MD Ot V57.89 11/19/2014 CINDA BRIGHT, CATALINO P Ot V45.81 11/19/2014 CINDA MD, CATALINO P Ot V57.89 11/19/2014 CINDA MD, CATALINO P Ot V45.81 11/19/2014 CINDA MD, CATALINO P Ot V57.89 11/19/2014 CINDA MD, CATALINO P Ot V45.81 11/19/2014 CINDA MD, CATALINO P Ot V57.89 11/19/2014 CINDA MD, CATALINO P Ot V45.81 11/19/2014 GALSIRENA MD, CATALINO P Ot V57.89 11/19/2014 STEVE FUENTES, CATALINO M Ot 724.02 11/19/2014 STEVE FUENTES, CATALINO M Ot V57.1 11/19/2014 CINDA BRIGHT, CATALINO P Ot V45.81 11/19/2014 CINDA BRIGHT, CATALINO P Ot V57.89 11/20/2014 CINDA BRIGHT, CATALINO P Ot V45.81 11/20/2014 CINDA BRIGHT, CATALINO P Ot V57.89 11/21/2014 CATALINO WILSON DO M Ot 724.02 11/21/2014 STEVE DO, CATALINO M Ot V57.1 11/22/2014 CINDA BRIGHT, CATALINO P Ot V45.81 11/22/2014 CINDA BRIGHT, CATALINO P Ot V57.89 11/26/2014 CINDA BRIGHT, CATALINO P Ot V45.81 11/26/2014 CINDA BRIGHT, CATALINO P Ot V57.89 01/09/2015 YANNA STOVALL DO Ot 786.50 01/09/2015 YANNA STOVALL DO Ot 793.99 06/20/2017 SHADE BRIGHT, CARLOS EDUARDO Nolan Ot E78.00 PURE HYPERCHOLESTEROLEMIA, UNSPECIFIED 06/20/2017 CARLOS EDUARDO LAGUERRE MD Ot E87.8 OTH DISORDERS OF ELECTROLYTE AND FLUID B 06/20/2017 CARLOS EDUARDO LAGUERRE MD Ot F12.90 CANNABIS USE, UNSPECIFIED, UNCOMPLICATED 06/20/2017 CARLOS EDUARDO LAGUERRE MD Ot I10 ESSENTIAL (PRIMARY) HYPERTENSION 06/20/2017 CARLOS EDUARDO LAGUERRE MD Ot I25.10 ATHSCL HEART DISEASE OF [place] CORONARY 06/20/2017 CARLOS EDUARDO LAGUERRE MD Ot R42 DIZZINESS AND GIDDINESS 06/20/2017 CARLOS EDUARDO LAGUERRE MD Ot Z79.82 FDC (CURRENT) USE OF ASPIRIN 06/20/2017 CARLOS EDUARDO LAGUERRE MD Ot 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( 06/20/2017 CARLOS EDUARDO LAGUERRE MD Ot Z95.1 PRESENCE OF AORTOCORONARY BYPASS GRAFT 06/21/2017 CARLOS EDUARDO LAGUERRE MD Ot E78.00 PURE HYPERCHOLESTEROLEMIA, UNSPECIFIED 06/21/2017 CARLOS EDUARDO LAGUERRE MD Ot E87.8 OTH DISORDERS OF ELECTROLYTE AND FLUID B 06/21/2017 CARLOS EDUARDO LAGUERRE MD Ot F12.90 CANNABIS USE, UNSPECIFIED, UNCOMPLICATED 06/21/2017 CARLOS EDUARDO LAGUERRE MD Ot I10 ESSENTIAL (PRIMARY) HYPERTENSION 06/21/2017 CARLOS EDUARDO LAGUERRE MD Ot I25.10 ATHSCL HEART DISEASE OF [place] CORONARY 06/21/2017 CARLOS EDUARDO LAGUERRE MD Ot R42 DIZZINESS AND GIDDINESS 06/21/2017 CARLOS EDUARDO LAGUERRE MD Ot Z79.82 FDC (CURRENT) USE OF ASPIRIN 06/21/2017 CARLOS EDUARDO LAGUERRE MD Ot 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( 06/21/2017 CARLOS EDUARDO LAGUERRE MD Ot Z95.1 PRESENCE OF AORTOCORONARY BYPASS GRAFT 05/13/2018 SARAH LIMON DO Ot E78.00 PURE HYPERCHOLESTEROLEMIA, UNSPECIFIED 05/13/2018 SARAH LIMON DO Ot I10 ESSENTIAL (PRIMARY) HYPERTENSION 05/13/2018 SARAH LIMON DO Ot I25.10 ATHSCL HEART DISEASE OF [place] CORONARY 05/13/2018 SARAH LIMON DO Ot 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 05/13/2018 SARAH LIMON DO Ot K22.2 ESOPHAGEAL OBSTRUCTION 05/13/2018 SARAH LIMON DO Ot R09.02 HYPOXEMIA 05/13/2018 SARAH LIMON DO Ot T18.128A FOOD IN ESOPHAGUS CAUSING OTHER INJURY, 05/13/2018 SARAH LIMON DO Ot 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 05/13/2018 ASHLY DO, SARAH B Ot Z95.1 PRESENCE OF AORTOCORONARY BYPASS GRAFT 05/17/2018 DELMAN DO, SARAH B Ot E78.00 PURE HYPERCHOLESTEROLEMIA, UNSPECIFIED 05/17/2018 DELMAN DO, SARAH B Ot I10 ESSENTIAL (PRIMARY) HYPERTENSION 05/17/2018 DELMAN DO, SARAH B Ot I25.10 ATHSCL HEART DISEASE OF [place] CORONARY 05/17/2018 DELMAN DO, SARAH B Ot 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 05/17/2018 DELMAN DO, SARAH B Ot K22.2 ESOPHAGEAL OBSTRUCTION 05/17/2018 DELMAN DO, SARAH B Ot R09.02 HYPOXEMIA 05/17/2018 DELMAN DO, SARAH B Ot T18.128A FOOD IN ESOPHAGUS CAUSING OTHER INJURY, 05/17/2018 DELKIKA DO, SARAH B Ot Z79.82 FDC (CURRENT) USE OF ASPIRIN 05/17/2018 DELMAN DO, SARAH B Ot Z95.1 PRESENCE OF AORTOCORONARY BYPASS GRAFT 05/17/2018 DELMAN DO, SARAH B Ot E78.00 PURE HYPERCHOLESTEROLEMIA, UNSPECIFIED 05/17/2018 DELMAN DO, SARAH B Ot I10 ESSENTIAL (PRIMARY) HYPERTENSION 05/17/2018 DELKIKA DO, SARAH B Ot I25.10 ATHSCL HEART DISEASE OF [place] CORONARY 05/17/2018 ASHLY DO, SARAH B Ot 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 Results Test Result Range Complete blood count (CBC) with automated white blood cell (WBC) differential - 06/20/17 00:28 Blood leukocytes automated count (number/volume) 5.9 10*3/uL 4.3-11.0 Blood erythrocytes automated count (number/volume) 4.28 10*6/uL 4.35-5.85 Venous blood hemoglobin measurement (mass/volume) 13.4 g/dL 13.3-17.7 Blood hematocrit (volume fraction) 39 % 40-54 Automated erythrocyte mean corpuscular volume 92 [foz_us] 80-99 Automated erythrocyte mean corpuscular hemoglobin (mass per erythrocyte) 31 pg 25-34 Automated erythrocyte mean corpuscular hemoglobin concentration measurement ( mass/volume) 34 g/dL 32-36 Automated erythrocyte distribution width ratio 12.5 % 10.0-14.5 Automated blood platelet count (count/volume) 203 10*3/uL 130-400 Automated blood platelet mean volume measurement 11.3 [foz_us] 7.4-10.4 Automated blood neutrophils/100 leukocytes 56 % 42-75 Automated blood lymphocytes/100 leukocytes 31 % 12-44 Blood monocytes/100 leukocytes 9 % 0-12 Automated blood eosinophils/100 leukocytes 4 % 0-10 Automated blood basophils/100 leukocytes 1 % 0-10 Blood neutrophils automated count (number/volume) 3.3 10*3 1.8-7.8 Blood lymphocytes automated count (number/volume) 1.8 10*3 1.0-4.0 Blood monocytes automated count (number/volume) 0.5 10*3 0.0-1.0 Automated eosinophil count 0.2 10*3/uL 0.0-0.3 Automated blood basophil count (count/volume) 0.0 10*3/uL 0.0-0.1 Comprehensive metabolic panel - 06/20/17 00:28 Serum or plasma sodium measurement (moles/volume) 133 mmol/L 135-145 Serum or plasma potassium measurement (moles/volume) 4.1 mmol/L 3.6-5.0 Serum or plasma chloride measurement (moles/volume) 97 mmol/L 98-107 Carbon dioxide 25 mmol/L 21-32 Serum or plasma anion gap determination (moles/volume) 11 mmol/L 5-14 Serum or plasma urea nitrogen measurement (mass/volume) 18 mg/dL 7-18 Serum or plasma creatinine measurement (mass/volume) 0.79 mg/dL 0.60-1.30 Serum or plasma urea nitrogen/creatinine mass ratio 23 NRG Serum or plasma creatinine measurement with calculation of estimated glomerular filtration rate > NRG Serum or plasma glucose measurement (mass/volume) 104 mg/dL 70-105 Serum or plasma calcium measurement (mass/volume) 8.5 mg/dL 8.5-10.1 Serum or plasma total bilirubin measurement (mass/volume) 0.3 mg/dL 0.1-1.0 Serum or plasma alkaline phosphatase measurement (enzymatic activity/volume) 59 U/L 40-136 Serum or plasma aspartate aminotransferase measurement (enzymatic activity/ volume) 33 U/L 5-34 Serum or plasma alanine aminotransferase measurement (enzymatic activity/volume ) 21 U/L 0-55 Serum or plasma protein measurement (mass/volume) 3.9 g/dL 6.4-8.2 Serum or plasma albumin measurement (mass/volume) 2.6 g/dL 3.2-4.5 Serum or plasma ethanol measurement (mass/volume) - 06/20/17 00:28 Serum or plasma ethanol measurement (mass/volume) < mg/dL <10 Complete urinalysis with reflex to culture - 06/20/17 01:58 Urine color determination YELLOW NRG Urine clarity determination SLIGHTLY CLOUDY NRG Urine pH measurement by test strip 8 5-9 Specific gravity of urine by test strip 1.010 1.016- 1.022 Urine protein assay by test strip, semi-quantitative 3+ NEGATIVE Urine glucose detection by automated test strip NEGATIVE NEGATIVE Erythrocytes detection in urine sediment by light microscopy NEGATIVE NEGATIVE Urine ketones detection by automated test strip NEGATIVE NEGATIVE Urine nitrite detection by test strip NEGATIVE NEGATIVE Urine total bilirubin detection by test strip NEGATIVE NEGATIVE Urine urobilinogen measurement by automated test strip (mass/volume) NORMAL NORMAL Urine leukocyte esterase detection by dipstick NEGATIVE NEGATIVE Automated urine sediment erythrocyte count by microscopy (number/high power field) NONE NRG Automated urine sediment leukocyte count by microscopy (number/high power field ) NONE NRG Bacteria detection in urine sediment by light microscopy TRACE NRG Squamous epithelial cells detection in urine sediment by light microscopy RARE NRG Crystals detection in urine sediment by light microscopy PRESENT NRG Casts detection in urine sediment by light microscopy NONE NRG Mucus detection in urine sediment by light microscopy NEGATIVE NRG Complete urinalysis with reflex to culture NO NRG Amorphous sediment detection in urine sediment by light microscopy LARGE TATY PHOSPHATE NRG Urine drug screening test - 06/20/17 01:58 Urine phencyclidine detection by screening method NEGATIVE NEGATIVE Urine benzodiazepines detection by screening method NEGATIVE NEGATIVE Urine cocaine detection NEGATIVE NEGATIVE Urine amphetamines detection by screening method NEGATIVE NEGATIVE Urine methamphetamine detection by screening method NEGATIVE NEGATIVE Urine cannabinoids detection by screening method POSITIVE NEGATIVE Urine opiates detection by screening method NEGATIVE NEGATIVE Urine barbiturates detection NEGATIVE NEGATIVE Screening urine tricyclic antidepressants detection NEGATIVE NEGATIVE Urine methadone detection by screening method NEGATIVE NEGATIVE Urine oxycodone detection NEGATIVE NEGATIVE Urine propoxyphene detection NEGATIVE NEGATIVE Complete blood count (CBC) with automated white blood cell (WBC) differential - 05/13/18 13:44 Blood leukocytes automated count (number/volume) 5.6 10*3/uL 4.3-11.0 Blood erythrocytes automated count (number/volume) 4.43 10*6/uL 4.35-5.85 Venous blood hemoglobin measurement (mass/volume) 14.2 g/dL 13.3-17.7 Blood hematocrit (volume fraction) 41 % 40-54 Automated erythrocyte mean corpuscular volume 92 [foz_us] 80-99 Automated erythrocyte mean corpuscular hemoglobin (mass per erythrocyte) 32 pg 25-34 Automated erythrocyte mean corpuscular hemoglobin concentration measurement ( mass/volume) 35 g/dL 32-36 Automated erythrocyte distribution width ratio 13.7 % 10.0-14.5 Automated blood platelet count (count/volume) 232 10*3/uL 130-400 Automated blood platelet mean volume measurement 11.5 [foz_us] 7.4-10.4 Automated blood neutrophils/100 leukocytes 72 % 42-75 Automated blood lymphocytes/100 leukocytes 20 % 12-44 Blood monocytes/100 leukocytes 5 % 0-12 Automated blood eosinophils/100 leukocytes 2 % 0-10 Automated blood basophils/100 leukocytes 1 % 0-10 Blood neutrophils automated count (number/volume) 4.0 10*3 1.8-7.8 Blood lymphocytes automated count (number/volume) 1.1 10*3 1.0-4.0 Blood monocytes automated count (number/volume) 0.3 10*3 0.0-1.0 Automated eosinophil count 0.1 10*3/uL 0.0-0.3 Automated blood basophil count (count/volume) 0.0 10*3/uL 0.0-0.1 PT panel in platelet poor plasma by coagulation assay - 05/13/18 13:44 Prothrombin time (PT) in platelet poor plasma by coagulation assay 12.7 s 12.2-14.7 INR in platelet poor plasma or blood by coagulation assay 1.0 0.8-1.4 Activated partial thromboplastin time (aPTT) in platelet poor plasma bycoagulation assay - 05/13/18 13:44 Activated partial thromboplastin time (aPTT) in platelet poor plasma bycoagulation assay 27 s 24-35 Comprehensive metabolic panel - 05/13/18 13:44 Serum or plasma sodium measurement (moles/volume) 133 mmol/L 135-145 Serum or plasma potassium measurement (moles/volume) 4.4 mmol/L 3.6-5.0 Serum or plasma chloride measurement (moles/volume) 101 mmol/L 98-107 Carbon dioxide 24 mmol/L 21-32 Serum or plasma anion gap determination (moles/volume) 8 mmol/L 5-14 Serum or plasma urea nitrogen measurement (mass/volume) 14 mg/dL 7-18 Serum or plasma creatinine measurement (mass/volume) 0.68 mg/dL 0.60-1.30 Serum or plasma urea nitrogen/creatinine mass ratio 21 NRG Serum or plasma creatinine measurement with calculation of estimated glomerular filtration rate > NRG Serum or plasma glucose measurement (mass/volume) 89 mg/dL 70-105 Serum or plasma calcium measurement (mass/volume) 8.0 mg/dL 8.5-10.1 Serum or plasma total bilirubin measurement (mass/volume) 0.5 mg/dL 0.1-1.0 Serum or plasma alkaline phosphatase measurement (enzymatic activity/volume) 52 U/L 40-136 Serum or plasma aspartate aminotransferase measurement (enzymatic activity/ volume) 36 U/L 5-34 Serum or plasma alanine aminotransferase measurement (enzymatic activity/volume ) 20 U/L 0-55 Serum or plasma protein measurement (mass/volume) 3.9 g/dL 6.4-8.2 Serum or plasma albumin measurement (mass/volume) 2.3 g/dL 3.2-4.5 Magnesium - 05/13/18 13:44 Magnesium 1.6 mg/dL 1.8-2.4 Serum or plasma troponin i.cardiac measurement (mass/volume) - 05/13/18 13:44 Serum or plasma troponin i.cardiac measurement (mass/volume) < ng/ mL <0.30 Myoglobin, serum - 05/13/18 13:44 Myoglobin, serum 204.7 ng/mL 10.0-92.0 Lipase - 05/13/18 13:44 Lipase 11 U/L 8-78 Serum or plasma lithium measurement (moles/volume) - 05/13/18 13:44 BNP level 387.1 pg/mL <100.0 Encounters ACCT No. Visit Date/Time Discharge Status Pt. Type Provider Facility Loc./Unit Complaint [id number] 05/13/2018 15:56:00 05/13/2018 18:15:00 DIS Outpatient SARAH LIMON DO [facility] ENDO EGD [id number] 06/20/2017 00:26:00 06/20/2017 03:57:00 DIS Emergency SHADE BRIGHT, CARLOS EDUARDO Nolan [facility] ER DIZZY [id number] 11/26/2014 10:52:00 11/26/2014 11:00:00 DIS Outpatient CATALINO LOO MD [facility] CR [id number] 11/14/2014 08:31:00 11/21/2014 15:27:00 DIS Outpatient CATALINO WILSON DO [facility] REHAB [id number] 11/12/2014 10:18:00 11/12/2014 00:01:00 DIS Outpatient CATALINO LOO MD [facility] CR [id number] 11/09/2014 08:00:00 11/09/2014 23:59:59 CLS Preadmit CATALINO LOO MD [facility] CR [id number] 09/05/2014 13:43:00 09/19/2014 13:58:00 DIS Outpatient CATALINO WILSON DO [facility] REHAB [id number] 04/05/2014 07:24:00 04/05/2014 12:35:00 DIS Outpatient TIA GAO MD [facility] [id number] 04/04/2014 07:29:00 04/04/2014 23:59:59 CLS Outpatient TIA GAO MD [facility] PREOP [id number] 02/13/2014 06:25:00 02/13/2014 23:59:59 CLS Outpatient YANNA STOVALL DO [facility] RAD [id number] 11/29/2013 06:05:00 11/30/2013 17:30:00 DIS Outpatient [id number] 11/24/2013 07:51:00 11/24/2013 23:59:59 CLS Outpatient [id number] 06/29/2018 13:40:00 PEN Preadmit SARAH LIMON DO [facility] ENDO ESOPHAGEAL EROSIAS [id number] 11/26/2014 10:52:12 ACT Document Registration
[2018-06-22 15:36] VITALS: BP 128/77
[2018-06-23] MEDS ORDERED: ASPI-999 PO (15:41)
[2018-06-23] MEDS ORDERED: EVOL140P SQ (15:41)
[2018-06-23] MEDS ORDERED: CHOL500049 PO (15:41)
== END 2018-06-22 15:36 | disposition home or self-care (01) ==
LOC: EDUNIT# 13:01 → ER 13:02
DX: E16.2 Hypoglycemia, unspecified (principal); F12.10 Cannabis abuse, uncomplicated; E78.00 Pure hypercholesterolemia, unspecified; I10 Essential (primary) hypertension; I25.10 Atherosclerotic heart disease of native coronary artery without angina pectoris; Z87.19 Personal history of other diseases of the digestive system; Z82.49 Family history of ischemic heart disease and other diseases of the circulatory system; Z90.79 Acquired absence of other genital organ(s); Z95.1 Presence of aortocoronary bypass graft; Z79.82 Long term (current) use of aspirin
CPT/HCPCS: 36415; 70450; 71045; 80053; 82962; 84484; 85025; 85379; 85610; 85730; 93005; 93041; 96374

== ENCOUNTER 2018-06-23 05:35 | Outpatient (CLI) | payer MEDICARE, OTHER ==
[~2018-06-23] VITALS: Ht 180.3 cm; Wt 72.6 kg
[2018-06-23] MEDS ORDERED: ASPI-999 PO (15:41)
[2018-06-23] MEDS ORDERED: EVOL140P SQ (15:41)
[2018-06-23] MEDS ORDERED: CHOL500049 PO (15:41)
== END 2018-06-23 15:49 | disposition home or self-care (01) ==
LOC: PREOP 05:35
PROVIDERS: ATTEND Surgery
DX: Z01.818 Encounter for other preprocedural examination (principal); K22.10 Ulcer of esophagus without bleeding

== ENCOUNTER → 2018-06-24 | Outpatient (CLI) | payer MEDICARE, OTHER ==
[~2018-06-24] MED LIST changes: +ASPI-999 PO; +CHOL500049 PO; +EVOL140P SQ
--- NOTE | 2018-06-24 11:20 | Diagnostic Imaging Report ---
PROCEDURE: US Renal Bilateral. INDICATION: Proteinuria TECHNIQUE: Multiple real-time grayscale sonographic images were obtained of the kidneys. COMPARISON: None FINDINGS: RIGHT KIDNEY: 11.1 x 4.9 x 6.1 cm. LEFT KIDNEY: 12.4 x 4.8 x 5.4 cm. The kidneys have an unremarkable appearance. There is relatively normal echotexture of the renal parenchyma. No hydronephrosis. URINARY BLADDER: Unremarkable in appearance. Bilateral ureteral jets are present. IMPRESSION: 1. Unremarkable renal sonogram. Dictated by: Dictated on workstation # [id number]
== END ==
LOC: RAD 10:19
PROVIDERS: ATTEND Internal Medicine Nephrology
DX: R80.9 Proteinuria, unspecified (principal); E87.1 Hypo-osmolality and hyponatremia; E83.51 Hypocalcemia; D64.9 Anemia, unspecified; M10.9 Gout, unspecified; E78.5 Hyperlipidemia, unspecified; N40.0 Benign prostatic hyperplasia without lower urinary tract symptoms; G60.3 Idiopathic progressive neuropathy; R60.0 Localized edema
CPT/HCPCS: 76770

== ENCOUNTER 2018-06-29 11:50 | Day surgery (SDC) | payer MEDICARE, OTHER ==
[~2018-06-29] VITALS: Ht 180.3 cm; Wt 72.6 kg
--- OUTSIDE RECORDS SUMMARY | 2018-06-29 12:03 | XMS REPORT | Encounter Summary ---
Author Author [facility] Organization [facility] Address Unknown Phone Unavailable Care Team Providers Care Instructional Coach Name Role Phone Sae Gu MD PCP Reason for Referral * Consult, Test & Treat Status Reason Specialty Diagnoses / Referred By Referred To Procedures Contact Contact No Auth Needed Cardiology Diagnoses Nikita Armijo MD Bhg Card Hrt Idiopathic [address] [facility] neuropathy [place], [place] [id number] Orthostatic [id number] [address] lightheadedness Phone: [place], [place] Neuropathy [phone] P Phone: [place] [phone] AUTONOMIC TESTING WITH TILT MO CARDIOVASCULAR FUNCTION EVAL W/TILT TABLE W/MNTR Reason for Visit * Reason Comments Weakness Encounter Details Date Type Department Care Team Description 06/06/2018 Office Visit [facility] Nikita Armijo MD Neuropathy (Primary Dx); [facility] [address] Muscle weakness; [facility] [place] [address] [address] [phone] lightheadedness; [place], [place] Idiopathic progressive [id number] neuropathy [phone] Social History Tobacco Use Types Packs/Day Years [...] further suggestions. He is following with a front desk auxiliary who found that he had left ventricle [...] area(s) as directed every 14 days. Vit A,C,K-Gqho-Bqxnxn (ICAPS AREDS) [id number] tcuo-kr-jvyr cap Take by mouth daily. 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
--- OUTSIDE RECORDS SUMMARY | 2018-06-29 12:03 | XMS REPORT | Encounter Summary ---
Author Author [facility] Organization [facility] Address Unknown Phone Unavailable Care Team Providers Care Surveying Teacher Name Role Phone Sae Gu MD PCP Encounter Details Date Type Department Care Team Description 06/13/2018 Orders Only [facility] Nikita Armijo MD [facility] [address] [facility] [place] [address] [address] [facility] [phone] [place] [address] Social History Tobacco Use Types [...]
--- OUTSIDE RECORDS SUMMARY | 2018-06-29 12:03 | XMS REPORT | Clinical Summary ---
Author Author [facility] Organization [facility] Address Unknown Phone Unavailable Care Team Providers Care Agile Developer Name Role Phone Sae Gu MD PCP Source Comments Some departments are not documenting in the electronic medical record. If you do not see the information that you expected, contact Release of Information in the Health Information Management department at [phone] for further assistance in locating additional records.[facility] Allergies No Known Allergies Current Medications Prescription [...] oil (FISH OIL OMEGA 3-6-9 PO) Vit A,C,N-Eapt-Bfkvsq Take by mouth daily. Active (ICAPS AREDS) [id number] hsnr-ki-svaf cap Active Problems Problem Noted Date Orthostatic lightheadedness 06/06/2018 Neuropathy 05/20/2018 Muscle weakness 05/20/2018 Hyperglycemia 05/20/2018 Encounters Date Type Specialty Care Team Description 06/22/2018 Pre/Post Radiology Alba Villa, neonatal nurse practitioner 06/22/2018 Orders Only Radiology Zach Mcghee RN [...] nmol/L [facility] Comment: Test Performed at: [employer]/[facility] [address] [place], [id number] ELIZABET HOWARD MD,PHD Performing Organization Address [facility] Phone Number [employer] [address] [address] [place] [address] * TSH WITH FREE T4 REFLEX (05/20/2018 11:35 AM) TSH 3rd Generation 6.22 (H) 0.40 - 4.50 mIU/L [employer] Comment: Test Performed at: [employer] [id number], [id number] SAE HURLEY DO,MPH Performing Organization Address [facility] Phone Number [employer] [address] [place] [address] * RHEUMATOID FACTOR (RF) (05/20/2018 11:35 AM) Rheum Factor Screen <14 <14 IU/mL [employer] Comment: Test Performed at: [place], [id number] SAE HURLEY DO,MPH Performing Organization Address [facility] Phone Number [employer] [address] [place] [address] * IMMUNOFIXATION, SERUM (IFES) (05/20/2018 11:35 AM) Immuno Fix-Serum SEE NOTE [employer] Comment: Normal pattern. No monoclonal proteins detected. Test Performed at: [employer] [address], [id number] SAE HURLEY DO,MPH Performing Organization Address [facility] Phone Number [employer] [address] [place] [address] * 25-OH VITAMIN D (D2 + D3) [...] analytical performance characteristics have been determined by [facility]. It has not been cleared or approved by the US Food and Drug Administration. This assay has been validated pursuant to the CLIA regulations and is used for clinical purposes. REPORT COMMENT: FASTING:UNKNOWN Test Performed at: [employer] [address], [id number] NEGRITA BABB MD,PHD Performing Organization Address [facility] Phone Number [employer] [address] [place] [address] * CBC AND DIFF (05/20/2018 11:35 AM) White Blood Cells 7.5 3.8 - 10.8 Thousand/uL [facility] RBC 4.35 4.20 - 5.80 Million/uL [facility] Hemoglobin 14.1 13.2 - 17.1 g/dL [...] % [facility] Comment: Test Performed at: [employer] [address] [address], [id number] SAE HURLEY DO,MPH Performing Organization Address [facility] Phone Number [employer] [address] [place] [address] * ANTI-NUCLEAR ANTIBODY(JEMIMA) (05/20/2018 11:35 AM) JEMIMA Screen NEGATIVE NEGATIVE [employer] Comment: JEMIMA IFA is a first line screen for detecting the presence of up to approximately 150 autoantibodies in various autoimmune diseases. A negative JEMIMA IFA result suggests JEMIMA-associated autoimmune diseases are not present at this time. Visit Physician FAQs for interpretation of all antibodies in the [place], prevalence, and association with diseases at http://education.Antidot/ faq/KJB555 Test Performed at: [employer] [id number], [id number] SAE HURLEY DO,MPH Performing Organization Address [facility] Phone Number [employer] [address] [place] [address] * FREE T4 (FREE THYROXINE) ONLY (05/20/2018 11:35 AM) T4-Free 1.1 0.8 - 1.8 ng/dL [employer] Comment: Test Performed at: [employer] [id number], [id number] SAE HURLEY DO,MPH Performing Organization Address [facility] Phone Number [employer] [phone] [place] [address] * HEMOGLOBIN A1C (05/20/2018 11:35 AM) Hemoglobin A1C 5.0 <5.7 % of total Hgb [employer] Comment: For the purpose of screening for the presence of diabetes: <5.7% Consistent with the absence of diabetes 5.7-6.4%Consistent with increased risk for diabetes (predi abetes) > or=6.5%Consistent with diabetes This assay result is consistent with a decreased risk of diabetes. Currently, no consensus exists regarding use of hemoglobin A1c for diagnosis of diabetes in children. According to [place] Diabetes Association (ADA) guidelines, hemoglobin A1c <7.0% represents optimal control in non- diabetic patients. Different metrics may apply to specific patient populations. Standards of Medical Care in Diabetes(ADA). Test Performed at: [employer] [address] [employer], [id number] SAE HURLEY DO,MPH Performing Organization Address [facility] Phone Number [employer] [address] [place] [address] * VITAMIN B12 (05/20/2018 11:35 AM) Vitamin B12 974 200 - 1100 pg/mL [employer] Comment: Test Performed at: [employer] [address] [facility], [id number] SAE HURLEY DO,MPH Performing Organization Address [facility] Phone Number [employer] [address] [place] [address] * CREATINE KINASE-CPK (05/20/2018 11:35 AM) Creatine Kinase 191 44 - 196 U/L [employer] Comment: Test Performed at: [employer] [address] [place] [address], [id number] SAE HURLEY DO,MPH Performing Organization Address [facility] Phone Number [employer] [address] [place] [address] * COMPREHENSIVE METABOLIC PANEL (05/20/2018 11:35 AM) Glucose 92 65 - 99 mg/dL [employer] Comment: Fasting reference interval Blood Urea Nitrogen 15 7 - 25 mg/dL [facility] Creatinine 0.74 0.70 - 1.18 mg/dL [facility] Comment: For patients >49 years of age, the reference limit for Creatinine is approximately 13% higher for people identified as -Trinidadian. eGFR Non 89 > OR=60 mL/min/1.73m2 [facility] [...] Total Bilirubin 0.3 0.2 - 1.2 mg/dL [employer] Alk Phosphatase 57 40 - 115 U/L [employer] AST (SGOT) 25 10 - 35 U/L [facility] ALT (SGPT) 17 9 - 46 U/L [facility] Comment: Test Performed at: [employer] [address] [facility], [id number] SAE HURLEY DO,MPH Performing Organization Address City/State/Zipcode Phone Number [employer] [address] [place] [address] * EMG ORDER (05/20/2018) Narrative Performed At Performing Organization Address City/State/[facility] Phone Number IN CLINIC from Last 3 Months
--- OUTSIDE RECORDS SUMMARY | 2018-06-29 12:03 | XMS REPORT | Encounter Summary ---
Author Author [facility] Organization [facility] Address Unknown Phone Unavailable Care Team Providers Care Sales Assistant Displays Name Role Phone Sae Gu MD PCP Encounter Details Date Type Department Care Team Description 06/22/2018 Pre/Post [facility] Alba Villa RN Procedure Hospital Radiology [facility] [address] [place] [address] Social History Tobacco Use Types Packs/Day Years Used Date Never Smoker Smokeless Tobacco: Never Used Alcohol Use Drinks/Week oz/Week Comments Yes Very Rare Sex Assigned at Date Recorded Not on file as of this encounter Progress Notes * Alba Villa RN - 06/22/2018 4:46 PM CDT Interventional Radiology Outpatient Scheduling Checklist 1. Procedure: Renal biopsy-[place] Pt will be admitted post procedure 2. Date of Procedure: 07/07/18 3. Arrival Time: 1000 4. Procedure Time: 1100 5. Correct Procedural Room Assignment: [place] Room 6 6. Blood Thinners Triaged and instructed per protocol: N/A 7. Order Verified: Yes 8. Patient informed regarding procedure: Yes 9. Patient instructed to have a otr tanker truck driver: Yes 10. Patient instructed on NPO status: No solids after 0300, clear liquids until 0900, NPO from 0900 until after procedure 11. Specimen needed: Y/N: Yes 12. Allergies Verified: Y/N: Yes 13. Iodine Allergy: Y/N: If yes and receiving Iodine has the patient been premedicated: Y/N: No 14. Does the patient have labs according to IR procedural policy: Y/N: Yes, in G-drive 15. Will the patient need to be admitted/possible admission: Y/N: Yes 16. If YES to possible admission has the patient been instructed: Y/N: Yes, instructed to bring overnight bag for admission 17. Patient States Understanding: Y/N Yes 18. Hx HAVEN: Y/N: Pt instructed to bring PAP Machine:NA in this encounter Plan of Treatment Not on fileas of this encounter Visit Diagnoses Not on filein this encounter
--- OUTSIDE RECORDS SUMMARY | 2018-06-29 12:03 | XMS REPORT | Encounter Summary ---
Author Author [facility] Organization [facility] Address Unknown Phone Unavailable Care Team Providers Care Child And Family Services Worker Name Role Phone Sae Gu MD PCP Encounter Details Date Type Department Care Team Description 05/20/2018 Orders Only [facility] Nikita Armijo MD Physicians - Neurology [address] [facility] [place] [address] [facility] [phone] [place] [address] Social History Tobacco Use Types Packs/Day Years Used Date Never Smoker Smokeless Tobacco: Never Used Alcohol Use Drinks/Week oz/Week Comments Yes Very Rare Sex Assigned at Date Recorded Not on file as of this encounter Plan of Treatment Not on fileas of this encounter Results * FREE T4 (FREE THYROXINE) ONLY (05/20/2018 11:35 AM) T4-Free 1.1 0.8 - 1.8 ng/dL [facility] Comment: Test Performed at: [employer] [address] [place], [id number] SAE HURLEY DO,MPH Performing Organization Address City/State/[facility] Phone Number [facility] [address] [place] [address] * 25-OH VITAMIN D (D2 + D3) [...] 8Comment: Reference Range: Not See Below ng/mL [facility] established Vitamin D2,25-OH 27 See Below ng/mL [facility] Comment: Reference Range: Not established This test was developed and its analytical performance characteristics have been determined by [facility]. It has not been cleared or approved by the US Food and Drug Administration. This assay has been validated pursuant to the CLIA regulations and is used for clinical purposes. REPORT COMMENT: FASTING:UNKNOWN Test Performed at: [facility] [place] [id number] [place] [address], [id number] NEGRITA BABB MD,PHD Performing Organization Address [facility] Phone Number [facility] [address] [place] [address] * HEMOGLOBIN A1C (05/20/2018 11:35 AM) Hemoglobin A1C 5.0 <5.7 % of total Hgb [facility] Comment: For the purpose of screening for the presence of diabetes: <5.7% Consistent with the absence of diabetes 5.7-6.4%Consistent with increased risk for diabetes (predi abetes) > or=6.5%Consistent with diabetes This assay result is consistent with a decreased risk of diabetes. Currently, no consensus exists regarding use of hemoglobin A1c for diagnosis of diabetes in children. According to [place] Diabetes Association (ADA) guidelines, hemoglobin A1c <7.0% represents optimal control in non- diabetic patients. Different metrics may apply to specific patient populations. Standards of Medical Care in Diabetes(ADA). Test Performed at: [employer] [address], [id number] SAE HURLEY DO,MPH Performing Organization Address [facility] Phone Number [facility] [address] [employer] [address] * TSH WITH FREE T4 REFLEX (05/20/2018 11:35 AM) TSH 3rd Generation 6.22 (H) 0.40 - 4.50 mIU/L [facility] Comment: Test Performed at: [employer] [address] [place], [id number] SAE HURLEY DO,MPH Performing Organization Address [facility] Phone Number [facility] [address] [place] [address] * VITAMIN B12 (05/20/2018 11:35 AM) Vitamin B12 974 200 - 1100 pg/mL [facility] Comment: Test Performed at: [employer] [address] [address] [place], [id number] SAE HURLEY DO,MPH Performing Organization Address [facility] Phone Number [facility] [address] [place], [place] [address]ner [facility] [place] [address] * RHEUMATOID FACTOR (RF) (05/20/2018 11:35 AM) Rheum Factor Screen <14 <14 IU/mL [facility] Comment: Test Performed at: [employer] [address], [id number] SAE HURLEY DO,MPH Performing Organization Address [facility] Phone Number [facility] [address] [place], [place] [address]ner [facility] [place] [address] * IMMUNOFIXATION, SERUM (IFES) (05/20/2018 11:35 AM) Immuno Fix-Serum SEE NOTE [facility] Comment: Normal pattern. No monoclonal proteins detected. Test Performed at: [employer] [address] [address] KRZYSZTOFHappy Inspector, [id number] SEA HURLEY DO,MPH Performing Organization Address [facility] Phone Number [facility] [address] [place] [address] * ANTI-NUCLEAR ANTIBODY(JEMIMA) (05/20/2018 11:35 AM) JEMIMA Screen NEGATIVE NEGATIVE [facility] Comment: JEMIMA IFA is a first line screen for detecting the presence of up to approximately 150 autoantibodies in various autoimmune diseases. A negative JEMIMA IFA result suggests JEMIMA-associated autoimmune diseases are not present at this time. Visit Physician FAQs for interpretation of all antibodies in the [place], prevalence, and association with diseases at http://education.Health Fidelity.com/ faq/TVY574 Test Performed at: [employer] [address] [address] KRZYSZTOFSonoma OrthopedicsA, [id number] SAE HURLEY DO,MPH Performing Organization Address [facility] Phone Number [facility] [address] [place] [address] * CBC AND DIFF (05/20/2018 11:35 AM) [...] % [facility] Comment: Test Performed at: [employer] [address] [place], [id number] SAE HURLEY DO,MPH Performing Organization Address [facility] Phone Number [facility] [address] [place] [address] * METHYLMALONIC ACID, SERUM (05/20/2018 11:35 AM) Methylmalonic Acid 158 87 - 318 nmol/L [facility] Comment: Test Performed at: [facility]/[address] ELIZABET HOWARD MD,PHD Performing Organization Address [facility] Phone Number [facility] [address] [place] [address] * CREATINE KINASE-CPK (05/20/2018 11:35 AM) Creatine Kinase 191 44 - 196 U/L [facility] Comment: Test Performed at: [employer] [facility] [address] [place], [id number] SAE HURLEY DO,MPH Performing Organization Address [facility]/State/Zipcode Phone Number [facility] [address] [place] [address] * COMPREHENSIVE METABOLIC PANEL (05/20/2018 11:35 AM) Glucose 92 65 - 99 mg/dL [facility] Comment: Fasting reference interval Blood Urea Nitrogen 15 7 - 25 mg/dL [facility] Creatinine 0.74 0.70 - 1.18 mg/dL [facility] Comment: For patients >49 years of age, the reference limit for Creatinine is approximately 13% higher for people identified as -Singaporean. eGFR Non 89 > OR=60 mL/min/1.73m2 [facility] [...] 1.9 1.9 - 3.7 g/dL (calc) [facility] [employer] Albumin/Globulin Ratio 1.2 1.0 - 2.5 (calc) [facility] Total Bilirubin 0.3 0.2 - 1.2 mg/dL [facility] Alk Phosphatase 57 40 - 115 U/L [facility] AST (SGOT) 25 10 - 35 U/L [facility] ALT (SGPT) 17 9 - 46 U/L [facility] Comment: Test Performed at: [employer] [address] [address] KRZYSZTOFHappy Inspector, [id number] SAE HURLEY DO,MPH Performing Organization Address City/State/Zipcode Phone Number [facility] [address] [employer] [place] [address] in this encounter Visit Diagnoses Not on filein this encounter
--- OUTSIDE RECORDS SUMMARY | 2018-06-29 12:03 | XMS REPORT | Encounter Summary ---
Author Author [facility] Organization [facility] Address Unknown Phone Unavailable Care Team Providers Care Nurse Coordinator Name Role Phone Sae Gu MD PCP Reason for Visit * Reason Comments General Question Encounter Details Date Type Department Care Team Description 06/02/2018 Telephone [facility] Alyssa Augustin LPN General Question Physicians-Neurology [facility] [address] [place] [address] Social History Tobacco Use Types Packs/Day [...] any of this. Patient does see a librarian assistant, whom has not prescribed the patient any [...]
--- OUTSIDE RECORDS SUMMARY | 2018-06-29 12:03 | XMS REPORT | Encounter Summary ---
Author Author [facility] Organization [facility] Address Unknown Phone Unavailable Care Team Providers Care Billiard Table Repairer Name Role Phone Sae Gu MD PCP Encounter Details Date Type Department Care Team Description 06/10/2018 Orders Only [facility] Mi Cutler Neuropathy; Physicians-Neurology Muscle weakness; [facility] on [facility] Myalgia [address] [place] [address] Social History Tobacco Use Types Packs/Day Years Used Date Never Smoker Smokeless Tobacco: Never Used Alcohol Use Drinks/Week oz/Week Comments Yes Very Rare Sex Assigned at Date Recorded Not on file as of this encounter Plan of Treatment Not on fileas of this encounter Results * MISCELLANEOUS LAB TEST (05/20/2018) Specimen Blood Narrative Performed At Performing Organization Address City/[facility] Phone Number OTHER OUTSIDE LAB * MISCELLANEOUS LAB TEST (05/20/2018) Specimen Blood Narrative Performed At Performing Organization Address City/[facility] Phone Number OTHER OUTSIDE LAB * MISCELLANEOUS LAB TEST (05/20/2018) Specimen Blood Narrative Performed At Performing Organization Address City/State/Zipcode Phone Number OTHER OUTSIDE LAB in this encounter Visit Diagnoses Diagnosis Neuropathy Mononeuritis of unspecified site Muscle weakness Muscle weakness (generalized) Myalgia Mylagia and myositis, unspecified
--- OUTSIDE RECORDS SUMMARY | 2018-06-29 12:03 | XMS REPORT | Encounter Summary ---
Author Author [facility] Organization [facility] Address Unknown Phone Unavailable Care Team Providers Care Manager Practice Name Role Phone Sae Gu MD PCP Reason for Visit * Reason Comments Results Encounter Details Date Type Department Care Team Description 05/23/2018 Telephone [facility] Nikita Armijo MD Results Physicians-Neurology [address] [facility] [place] [address] [facility] [phone] [place] [address] Social History Tobacco Use Types [...] labs to him. I will fax to [phone] Gu. Patient states that he [...]
--- OUTSIDE RECORDS SUMMARY | 2018-06-29 12:03 | XMS REPORT | Encounter Summary ---
Author Author [facility] Organization [facility] Address Unknown Phone Unavailable Care Team Providers Care Day Haul Or Farm Charter Bus Driver Name Role Phone Sae Gu MD PCP Reason for Referral * Radiology Services Status Reason Specialty Diagnoses / Referred By Referred To Procedures Contact Contact No Auth Needed Radiology Diagnoses Doctor, [facility] Other Miscellaneous [facility] 2nd proteinuria fl [address] [place], [place] IR RENAL BIOPSY [address] [place] RENAL BIOPSY Phone: [employer] [phone] TROCAR/NEEDLE Encounter Details Date Type Department Care Team Description 06/22/2018 Orders Only [facility] Zach Mcghee, MILLIE Other proteinuria Hospital Radiology (Primary Dx) [facility] [address] [place] [address] Social History Tobacco Use Types Packs/Day Years [...]
--- OUTSIDE RECORDS SUMMARY | 2018-06-29 12:03 | XMS REPORT | Encounter Summary ---
Author Author [facility] Organization [facility] Address Unknown Phone Unavailable Care Team Providers Care Composition Floor Layer Name Role Phone Sae Gu MD PCP Reason for Visit * Reason Comments Test/procedure Encounter Details Date Type Department Care Team Description 05/20/2018 Clinical [facility] Nikita Armijo MD Muscle weakness; Support Physicians-Neurology [address] [facility] Neuropathy [facility] [place] [address] [address] [facility] [phone] [place] [address] Social History Tobacco Use Types [...]
--- OUTSIDE RECORDS SUMMARY | 2018-06-29 12:04 | XMS REPORT | Encounter Summary ---
Author Author [facility] Organization [facility] Address Unknown Phone Unavailable Care Team Providers Care [employer] Member Name Role Phone Sae Gu MD PCP Reason for Visit * Reason Comments New Patient * Consult, Test & Treat (Routine) Status Reason Specialty Diagnoses / Referred By Referred To Procedures Contact Contact No Auth Needed Specialty Neurology Diagnoses Aleksander Gu Duaa, MD Services PERIPHERAL Sae Maldonado III, [address] Required NEUROPATHY, [place], [place] MYOPATHY. [address] [place] [id number] REF BY [place], [place] Phone: [phone] SIA-PCP. Phone: P [phone] rocedures Fax: NEW PATIENT [phone] Encounter Details Date Type Department Care Team Description 05/20/2018 Office Visit [facility] Nikita Armijo MD Neuropathy; Physicians-Neurology [address] Muscle weakness; [facility] [place] [address] Myalgia ; [address] [phone] [place] [id number] Social History Tobacco Use Types Packs/Day Years [...] encounter Instructions * Patient Instructions - Nikita rAmijo MD - 05/20/2018 10:00 AM CDT There [...] area(s) as directed every 14 days. Vit A,C,P-Kbkg-Qxppll (ICAPS AREDS) [id number] fzqd-lj-nvaj cap Take by mouth daily. VITAMIN D [...] his neuropathy and weakness Nikita Armijo MD [employer] Neurology/Neuromuscular Medicine in this encounter Plan of [...] Narrative Performed At Performing Organization Address City/[facility] Phone Number OTHER OUTSIDE LAB * MISCELLANEOUS LAB TEST (05/20/2018) Specimen Blood Narrative Performed At Performing Organization Address City/[facility] Phone Number OTHER OUTSIDE LAB * MISCELLANEOUS LAB TEST (05/20/2018) Specimen Blood Narrative Performed At Performing Organization Address [facility] Phone Number OTHER OUTSIDE LAB in this encounter Visit Diagnoses Diagnosis Neuropathy Mononeuritis of unspecified site Muscle weakness Muscle weakness (generalized) Myalgia Mylagia and myositis, unspecified Hyperglycemia Other abnormal glucose
--- OUTSIDE RECORDS SUMMARY | 2018-06-29 12:04 | XMS REPORT | Continuity of Care Document ---
Author Author [facility] Organization [facility] Address Unknown Phone Unavailable Allergies Active Description Code Type Severity Reaction Onset Reported/Identified Relationship to Patient Clinical Status Yes No Known Drug Allergies [id number] Drug Allergy Unknown N/A 11/24/2013 Medications There [...] MD Ot I25.10 ATHSCL HEART DISEASE OF [place] CORONARY 06/20/2017 CARLOS EDUARDO LAGUERRE MD Ot R42 DIZZINESS AND GIDDINESS 06/20/2017 CARLOS EDUARDO LAGUERRE MD Ot Z79.82 SENIOR CARE (CURRENT) USE OF ASPIRIN 06/20/2017 CARLOS EDUARDO LAGUERRE MD Ot 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( 06/20/2017 CARLOS EDUARDO LAGUERRE MD Ot Z95.1 PRESENCE OF AORTOCORONARY BYPASS GRAFT 06/21/2017 CARLOS EDUARDO LAGUERRE MD Ot E78.00 PURE HYPERCHOLESTEROLEMIA, UNSPECIFIED 06/21/2017 CARLOS DEUARDO LAGUERRE MD Ot E87.8 OTH DISORDERS OF ELECTROLYTE AND FLUID B 06/21/2017 CARLOS EDUARDO LAGUERRE MD Ot F12.90 CANNABIS USE, UNSPECIFIED, UNCOMPLICATED 06/21/2017 CARLOS EDUARDO LAGUERRE MD Ot I10 ESSENTIAL (PRIMARY) HYPERTENSION 06/21/2017 CARLOS EDUARDO LAGUERRE MD Ot I25.10 ATHSCL HEART DISEASE OF [place] CORONARY 06/21/2017 CARLOS EDUARDO LAGUERRE MD Ot R42 DIZZINESS AND GIDDINESS 06/21/2017 CARLOS EDUARDO LAGUERRE MD Ot Z79.82 SENIOR CARE (CURRENT) USE OF ASPIRIN 06/21/2017 CARLOS EDUARDO LAGUERRE MD Ot 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( 06/21/2017 CARLOS EDUARDO LAGUERRE MD Ot Z95.1 PRESENCE OF AORTOCORONARY BYPASS GRAFT 05/13/2018 SARAH LIMON DO Ot E78.00 PURE HYPERCHOLESTEROLEMIA, UNSPECIFIED 05/13/2018 SARAH LIMON DO Ot I10 ESSENTIAL (PRIMARY) HYPERTENSION 05/13/2018 SARAH LIMON DO Ot I25.10 ATHSCL HEART DISEASE OF [place] CORONARY 05/13/2018 SARAH LIMON DO Ot 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 05/13/2018 SARAH LIMON DO Ot K22.2 ESOPHAGEAL OBSTRUCTION 05/13/2018 SARAH LIMON DO Ot R09.02 HYPOXEMIA 05/13/2018 SARAH LIMON DO Ot T18.128A FOOD IN ESOPHAGUS CAUSING OTHER INJURY, 05/13/2018 SARAH LIMON DO Ot 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 05/13/2018 ASHLY DO, SARAH B Ot Z95.1 PRESENCE OF AORTOCORONARY BYPASS GRAFT 05/17/2018 DELMAN DO, SARAH B Ot E78.00 PURE HYPERCHOLESTEROLEMIA, UNSPECIFIED 05/17/2018 DELMAN DO, SARAH B Ot I10 ESSENTIAL (PRIMARY) HYPERTENSION 05/17/2018 DELMAN DO, SARAH B Ot I25.10 ATHSCL HEART DISEASE OF [place] CORONARY 05/17/2018 DELMAN DO, SARAH B Ot 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 05/17/2018 DELMAN DO, SARAH B Ot K22.2 ESOPHAGEAL OBSTRUCTION 05/17/2018 DELMAN DO, SARAH B Ot R09.02 HYPOXEMIA 05/17/2018 DELMAN DO, SARAH B Ot T18.128A FOOD IN ESOPHAGUS CAUSING OTHER INJURY, 05/17/2018 DELKIKA DO, SARAH B Ot Z79.82 SENIOR CARE (CURRENT) USE OF ASPIRIN 05/17/2018 DELMAN DO, SARAH B Ot Z95.1 PRESENCE OF AORTOCORONARY BYPASS GRAFT 05/17/2018 DELMAN DO, SARAH B Ot E78.00 PURE HYPERCHOLESTEROLEMIA, UNSPECIFIED 05/17/2018 DELMAN DO, SARAH B Ot I10 ESSENTIAL (PRIMARY) HYPERTENSION 05/17/2018 DELKIKA DO, SARAH B Ot I25.10 ATHSCL HEART DISEASE OF [place] CORONARY 05/17/2018 ASHLY DO, SARAH B Ot 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 05/17/2018 DELMAN DO, SARAH B Ot K22.2 ESOPHAGEAL OBSTRUCTION 05/17/2018 DELMAN DO, SARAH B Ot R09.02 HYPOXEMIA 05/17/2018 DELMAN DO, SARAH B Ot T18.128A FOOD IN ESOPHAGUS CAUSING OTHER INJURY, 05/17/2018 DELKIKA DO, SARAH B Ot Z79.82 SENIOR CARE (CURRENT) USE OF ASPIRIN 05/17/2018 DELKIKA DO, [...] 05/13/18 13:44 BNP level 387.1 pg/mL <100.0 Capillary blood glucose measurement by glucometer (mass/volume) - 06/22/18 13: 05 Capillary blood glucose measurement by glucometer (mass/volume) 51 mg/dL 70-110 Complete blood count (CBC) with automated white blood cell (WBC) differential - 06/22/18 13:05 Blood leukocytes automated count (number/volume) 6.7 10*3/uL 4.3-11.0 Blood erythrocytes automated count (number/volume) 4.09 10*6/uL 4.35-5.85 Venous blood hemoglobin measurement (mass/volume) 13.3 g/dL 13.3-17.7 Blood hematocrit (volume fraction) 37 % 40-54 Automated erythrocyte mean corpuscular volume 91 [foz_us] 80-99 Automated erythrocyte mean corpuscular hemoglobin (mass per erythrocyte) 33 pg 25-34 Automated erythrocyte mean corpuscular hemoglobin concentration measurement ( mass/volume) 36 g/dL 32-36 Automated erythrocyte distribution width ratio 13.4 % 10.0-14.5 Automated blood platelet count (count/volume) 259 10*3/uL 130-400 Automated blood platelet mean volume measurement 10.7 [foz_us] 7.4-10.4 Automated blood neutrophils/100 leukocytes 74 % 42-75 Automated blood lymphocytes/100 leukocytes 16 % 12-44 Blood monocytes/100 leukocytes 9 % 0-12 Automated blood eosinophils/100 leukocytes 1 % 0-10 Automated blood basophils/100 leukocytes 1 % 0-10 Blood neutrophils automated count (number/volume) 5.0 10*3 1.8-7.8 Blood lymphocytes automated count (number/volume) 1.1 10*3 1.0-4.0 Blood monocytes automated count (number/volume) 0.6 10*3 0.0-1.0 Automated eosinophil count 0.1 10*3/uL 0.0-0.3 Automated blood basophil count (count/volume) 0.0 10*3/uL 0.0-0.1 Comprehensive metabolic panel - 06/22/18 13:05 Serum or plasma sodium measurement (moles/volume) 132 mmol/L 135-145 Serum or plasma potassium measurement (moles/volume) 3.3 mmol/L 3.6-5.0 Serum or plasma chloride measurement (moles/volume) 97 mmol/L 98-107 Carbon dioxide 29 mmol/L 21-32 Serum or plasma anion gap determination (moles/volume) 6 mmol/L 5-14 Serum or plasma urea nitrogen measurement (mass/volume) 9 mg/dL 7-18 Serum or plasma creatinine measurement (mass/volume) 0.66 mg/dL 0.60-1.30 Serum or plasma urea nitrogen/creatinine mass ratio 14 NRG Serum or plasma creatinine measurement with calculation of estimated glomerular filtration rate > NRG Serum or plasma glucose measurement (mass/volume) 48 mg/dL 70-105 Serum or plasma calcium measurement (mass/volume) 8.2 mg/dL 8.5-10.1 Serum or plasma total bilirubin measurement (mass/volume) 0.3 mg/dL 0.1-1.0 Serum or plasma alkaline phosphatase measurement (enzymatic activity/volume) 77 U/L 40-136 Serum or plasma aspartate aminotransferase measurement (enzymatic activity/ volume) 26 U/L 5-34 Serum or plasma alanine aminotransferase measurement (enzymatic activity/volume ) 18 U/L 0-55 Serum or plasma protein measurement (mass/volume) 4.1 g/dL 6.4-8.2 Serum or plasma albumin measurement (mass/volume) 2.4 g/dL 3.2-4.5 CALCIUM CORRECTED 9.5 mg/dL 8.5-10.1 Serum or plasma troponin i.cardiac measurement (mass/volume) - 06/22/18 13:05 Serum or plasma troponin i.cardiac measurement (mass/volume) < ng/ mL <0.30 PT panel in platelet poor plasma by coagulation assay - 06/22/18 13:05 Prothrombin time (PT) in platelet poor plasma by coagulation assay 13.6 s 12.2-14.7 INR in platelet poor plasma or blood by coagulation assay 1.0 0.8-1.4 Activated partial thromboplastin time (aPTT) in platelet poor plasma bycoagulation assay - 06/22/18 13:05 Activated partial thromboplastin time (aPTT) in platelet poor plasma bycoagulation assay 29 s 24-35 Fibrin D-dimer FEU measurement in platelet poor plasma (mass/volume) - 13:05 Fibrin D-dimer FEU measurement in platelet poor plasma (mass/volume) 2.27 ug/mL 0.00-0.49 Capillary blood glucose measurement by glucometer (mass/volume) - 06/22/18 15: 30 Capillary blood glucose measurement by glucometer (mass/volume) 111 mg/dL 70-110 Encounters ACCT No. Visit Date/Time Discharge Status Pt. Type Provider Facility Loc./Unit Complaint [id number] 05/13/2018 15:56:00 05/13/2018 18:15:00 DIS Outpatient SARAH LIMON DO [facility] ENDO EGD [id number] 06/20/2017 00:26:00 06/20/2017 03:57:00 DIS Emergency CARLOS EDUARDO LAGUERRE MD [facility] ER DIZZY [id number] 11/26/2014 10:52:00 11/26/2014 11:00:00 DIS Outpatient CATALINO LOO MD [facility] [id number] 11/14/2014 08:31:00 11/21/2014 15:27:00 DIS Outpatient CATALINO WILSON DO [facility] REHAB [id number] 11/12/2014 10:18:00 11/12/2014 00:01:00 DIS Outpatient CATALINO LOO MD [facility] [id number] 11/09/2014 08:00:00 11/09/2014 23:59:59 CLS Preadmit CATALINO LOO MD [facility] [id number] 09/05/2014 13:43:00 09/19/2014 13:58:00 DIS Outpatient CATALINO WILSON DO [facility] REHAB [id number] 04/05/2014 07:24:00 04/05/2014 12:35:00 DIS Outpatient TIA GAO MD [facility] [id number] 04/04/2014 07:29:00 04/04/2014 23:59:59 CLS Outpatient TIA GAO MD [facility] PREOP [id number] 02/13/2014 06:25:00 02/13/2014 23:59:59 CLS Outpatient YANNA STOVALL DO [facility] RAD [id number] 11/29/2013 06:05:00 11/30/2013 17:30:00 DIS Outpatient [id number] 11/24/2013 07:51:00 11/24/2013 23:59:59 CLS Outpatient [id number] 06/29/2018 13:40:00 PEN Preadmit SARAH LIMON DO [facility] ENDO ESOPHAGEAL EROSIAS [id number] 06/22/2018 13:16:00 Document Registration [id number] 11/26/2014 10:52:12 ACT Document Registration
[2018-06-29] MEDS ORDERED: LACTATED RINGERS 1,000 ML IV ONE (12:11)
[2018-06-29] MEDS ORDERED: LACTATED RINGERS 1,000 ML IV STA ×2 (12:32)
[2018-06-29 12:38] VITALS: BP 166/103
[2018-06-29] MEDS ORDERED: HURRICAINE EXT TUBE (BENZOCAINE) XX PRN ×2 (12:45)
--- NOTE | 2018-06-29 12:54 | Progress Note-Pre Operative ---
Pre-Operative Progress Note H&P Reviewed The H&P was reviewed, patient examined and no changes noted. Time Seen by Provider: 12:48 Date H&P Reviewed: Jun 29, 2018 Time H&P Reviewed: 12:49 Pre-Operative Diagnosis: esophageal erosion SARAH LIMON DO Jun 29, 2018 12:54
[2018-06-29] MEDS ORDERED: proPOfol 200 MG/20 ML (DIPRIVAN) VIAL IV ONE (13:40)
[2018-06-29 14:15] VITALS: BP 120/78
--- NOTE | 2018-06-29 14:17 | Progress Note-Post Operative ---
Post-Operative Progess Note Surgeon (s)/Dinkey Brakeman (s) Surgeon SARAH LIMON DO Dinkey Brakeman: none Pre-Operative Diagnosis esophageal erosion Post-Operative Diagnosis esophageal erosion - healed esophageal polyps small hiatal hernia minimal gastritis Procedure & Operative Findings Date of Procedure 06/29/18 Procedure Performed/Findings EGD with bx Anesthesia Type IV sedation by MACHINIST BENCH Estimated Blood Loss Estimated blood loss (mL): scant Specimens/Packing Specimens Removed esophageal polyps SARAH LIMON DO Jun 29, 2018 14:17
--- NOTE | 2018-06-29 14:19 | Endoscopy Discharge Instruct ---
Endo Procedure/Findings Findings 1.: Polyp 2.: Hiatal Hernia 3.: Gastritis Discharge Instructions - Activity: You might feel a little sleepy until tomorrow. This is due to the medicine you received to relax you. Until tomorrow, you should: NOT drive a car, operate machinery or power tools. NOT drink any alcoholic beverages. NOT make any important decisions or sign importortant papers. Do not return to work until tomorrow, unless otherwise instructed. Resume previous activities tomorrow. Diet: Start by taking liquids. If you tolerate liquids, advance to solid food. make an appointment for 1 week Instructions: 2.: EGD in 1 year Notify Physician - If you experience excessive bleeding, unusual abdominal pain, fever, or chest pain, contact your doctor immediately. Follow-Up: - I have received and understand the above instructions and will call my doctor if I have any further questions. Patient Signature Date Nurse Signature Other (Relationship) SARAH LIMON DO Jun 29, 2018 14:19
[2018-06-29 14:45] VITALS: BP 128/82
--- NOTE | 2018-06-29 14:46 | Anesthesia-General Post-Op ---
MAC Patient Condition Mental Status/LOC: Same as Preop Cardiovascular: Satisfactory Nausea/Vomiting: Absent Respiratory: Satisfactory Pain: Controlled Complications: Absent Post Op Complications Complications None Follow Up Care/Instructions Patient Instructions None needed. Anesthesiology Discharge Order Discharge Order Patient is doing well, no complaints, stable vital signs, no apparent adverse anesthesia problems. No complications reported per nursing. NICOLA ARZOLA CRNA Jun 29, 2018 14:46
[2018-06-29 15:00] VITALS: BP 128/82
--- NOTE | 2018-06-29 23:41 | OPERATIVE REPORT ---
DATE OF SERVICE: PREOPERATIVE DIAGNOSIS: History of esophageal erosion. POSTOPERATIVE DIAGNOSES: 1. Esophageal erosion, healed. 2. Esophageal polyp. PROCEDURE: EGD with biopsy. SURGEON: Rom Dupree DO. WIGS SALESPERSON: None. ANESTHESIA: IV sedation by MIXER AND SCALER. SPECIMEN: Biopsies from the esophagus. BLOOD LOSS: Scant. FLUIDS: Per anesthesia. POSTOPERATIVE CONDITION: Stable. INDICATION FOR PROCEDURE: The patient is a 77-year-old male who had been seen previously for esophageal erosion secondary to possible pill and needed a repeat to make sure this was gone or improved. FINDINGS: The patient had what looked like complete healing of the esophageal erosion, could see where the esophageal erosion had been, but also saw some polyps in the upper esophagus, took picture of these and then biopsied these, sent to pathology. PROCEDURE NOTE: After informed consent was obtained, the patient was brought to the endoscopy suite, placed in the bed in left lateral decubitus position. He was administered IV sedation by the MIXER AND SCALER who then monitored his vitals the entire time, heart rate, blood pressure and pulse ox and the scope was inserted down the mouth, down the esophagus into the stomach, pushed all the way to the antrum, took a picture of the antrum and then pushed into the first portion of duodenum. Looked like there was mild inflammation, elected not to do any biopsies, then retroflexed to look at the GE junction, saw what looked like a small hiatal hernia, took a picture of the GE junction and looked good, packed up into the esophagus and then found the site of previous erosion, took a picture of this, looked like it had healed completely and then up and just above this in the upper portion of the esophagus, looked like we saw was polyps. I elected to remove two of these the small polyps, these sent to pathology, and then pulled the scope up out of the esophagus and out of the mouth. The patient tolerated the procedure and he was recovered in endoscopy suite. Job ID: [id number] DocumentID: [id number] Dictated Date: 06/29/2018 14:16:24 Biblical Studies Professor Date: 06/29/2018 23:40:34 Dictated By: ROM DUPREE DO
== END 2018-06-29 15:00 | disposition home or self-care (01) ==
LOC: ENDO 11:50
PROVIDERS: ATTEND Surgery
DX: K22.10 Ulcer of esophagus without bleeding (principal); I10 Essential (primary) hypertension; I25.10 Atherosclerotic heart disease of native coronary artery without angina pectoris; Z95.1 Presence of aortocoronary bypass graft; E78.5 Hyperlipidemia, unspecified; E46 Unspecified protein-calorie malnutrition; F17.210 Nicotine dependence, cigarettes, uncomplicated; Z79.82 Long term (current) use of aspirin

== ENCOUNTER 2018-09-13 13:22 | Outpatient (RCR) | payer MEDICARE, OTHER ==
[~2018-09-13] VITALS: Ht 177.8 cm; Wt 73.9 kg
[2018-09-13 07:23] LABS: URINE IMMUNOFIXATION W/ INTERP Complete
[~2018-09-13 13:22] MED LIST changes: +BORTEZOMIB 3.5 MG VELCADE IV SCH
[2018-09-13 14:02] LABS: BASOPHILS % (AUTO) 0 % (0-10); EOSINOPHILS % (AUTO) 1 % (0-10); HEMATOCRIT 39 % (40-54); HEMOGLOBIN 13.5 G/DL (13.3-17.7); LYMPHOCYTES # (AUTO) 0.6 X 10^3 (1.0-4.0); LYMPHOCYTES % (AUTO) 10 % (12-44); MEAN CORPUSCULAR HEMOGLOBIN 32 PG (25-34); MEAN CORPUSCULAR HGB CONC 34 G/DL (32-36); MEAN CORPUSCULAR VOLUME 92 FL (80-99); MEAN PLATELET VOLUME 11.3 FL (7.4-10.4); MONOCYTES # (AUTO) 0.4 X 10^3 (0.0-1.0); MONOCYTES % (AUTO) 6 % (0-12); NEUTROPHILS # (AUTO) 5.6 X 10^3 (1.8-7.8); NEUTROPHILS % (AUTO) 84 % (42-75); PLATELET COUNT 206 10^3/uL (130-400); RED BLOOD COUNT 4.25 10^6/uL (4.35-5.85); RED CELL DISTRIBUTION WIDTH 13.5 % (10.0-14.5); WHITE BLOOD COUNT 6.7 10^3/uL (4.3-11.0)
[2018-09-13 14:20] LABS: ALANINE AMINOTRANSFERASE 21 U/L (0-55); ALBUMIN 2.1 GM/DL (3.2-4.5); ALKALINE PHOSPHATASE 55 U/L (40-136); BILIRUBIN,TOTAL 0.3 MG/DL (0.1-1.0); BUN/CREATININE RATIO 14; CALCIUM 7.9 MG/DL (8.5-10.1); CARBON DIOXIDE 29 MMOL/L (21-32); CHLORIDE 96 MMOL/L (98-107); GFR ESTIMATED > 60; GLUCOSE 89 MG/DL (70-105); POTASSIUM 3.9 MMOL/L (3.6-5.0); SODIUM 129 MMOL/L (135-145); TOTAL PROTEIN 3.9 GM/DL (6.4-8.2)
[2018-09-13] MEDS ORDERED: PALONOSETRON HCL 0.25 MG, DEXAMETHASONE INJECTION 10 MG in NS (IVPB) CANCER CENTER 50 ML IV SCH (15:00)
[2018-09-19] MEDS ORDERED: ZOLP5TAB7 PO (11:17)
[2018-09-19] MEDS ORDERED: ERGO50006 PO (11:17)
[2018-09-19] MEDS ORDERED: VIT1CAPS44 PO (11:17)
[2018-09-19] MEDS ORDERED: FURO40TA4 PO (11:17)
[2018-09-19] MEDS ORDERED: DOXY100T2 PO (11:17)
[2018-09-19] MEDS ORDERED: ACYC400T PO (11:17)
[2018-09-19] MEDS ORDERED: ROSU10TA27 PO (11:17)
[2018-09-19] MEDS ORDERED: ONDA8TAB12 PO (11:17)
[2018-09-19] MEDS ORDERED: HYDR10TA13 PO ×2 (11:17)
[2018-09-19] MEDS ORDERED: EYE INJECTION INJ (11:17)
[2018-09-19] MEDS ORDERED: DEXA4TAB PO (11:17)
[2018-09-19] MEDS ORDERED: CYCL50CA3 PO (11:17)
[2018-10-03] MEDS ORDERED: ALPR0.254 PO (10:23)
[2018-10-03] MEDS ORDERED: TAMS0.4C98 PO (10:23)
[2018-10-03] MEDS ORDERED: HYDR20TA2 PO ×2 (10:23)
[2018-10-03] MEDS ORDERED: ACHD5005 PO (10:23)
[2018-10-03] MEDS ORDERED: POLY17PO31 PO (10:23)
[2018-10-03] MEDS ORDERED: BETH10TA PO (10:23)
[2018-10-03] MEDS ORDERED: BISA10SU12 PR (10:23)
[2018-10-03] MEDS ORDERED: ENOX40DI8 SC (10:23)
[2018-10-03] MEDS ORDERED: MELA3TAB PO (10:23)
[2018-10-03] MEDS ORDERED: FLDR.1T PO (10:23)
[2018-10-19] MEDS ORDERED: TAMS0.4C2 PO (09:09)
[2018-10-19] MEDS ORDERED: POLY17PO6 PO (09:09)
[2018-10-19] MEDS ORDERED: BISA10SU6 RC (09:09)
[2018-10-19] MEDS ORDERED: VIT1CAPS14 PO (09:09)
[2018-10-19] MEDS ORDERED: BETH25TA PO (09:09)
[2018-10-19] MEDS ORDERED: HYDR20TA2 PO (09:09)
[2018-10-19] MEDS ORDERED: TEMA15CA PO (09:09)
[2018-10-19] MEDS ORDERED: FLDR.1T PO (09:09)
[2018-10-19] MEDS ORDERED: NYST1POW22 TOP (09:09)
[2018-10-19] MEDS ORDERED: LOPE2TAB34 PO (09:09)
[2018-10-19] MEDS ORDERED: ONDA8TAB13 PO (09:09)
[2018-10-19] MEDS ORDERED: HYDR-3812 PO (09:09)
[2018-10-19] MEDS ORDERED: ALPR0.254 PO (10:48)
[2018-10-21] MEDS ORDERED: POTA20TA8 PO (11:05)
[2018-10-21] MEDS ORDERED: ASPI-983 PO (11:05)
[2018-10-21] MEDS ORDERED: CLOP75TA28 PO (11:05)
== END 2018-10-27 | disposition home or self-care (01) ==
LOC: ONC 13:22
PROVIDERS: ATTEND Internal Medicine Hematology & Oncology
DX: E85.4 Organ-limited amyloidosis (principal); J99 Respiratory disorders in diseases classified elsewhere
CPT/HCPCS: 36415; 80053; 82232; 82570; 83880; 83883; 84155; 84156; 84165; 84166; 84484; 85025; 86335; 96365; 96375; 96401; 99214

== ENCOUNTER 2018-09-19 06:35 | Inpatient (IN) | payer MEDICARE, OTHER ==
[2018-09-19] VITALS (7 sets, daily range): BP systolic 118–139; BP diastolic 71–85
[~2018-09-19] VITALS: Ht 177.8 cm; Wt 95.3 kg
[~2018-09-19 06:35] MED LIST changes: -BORTEZOMIB 3.5 MG VELCADE IV SCH
--- OUTSIDE RECORDS SUMMARY | 2018-09-19 06:41 | XMS REPORT | Clinical Summary ---
Author Author [facility] Organization [facility] Address Unknown Phone Unavailable Care Team Providers Care Commercial Administrator Name Role Phone Sae Gu MD PCP Sae Allen MD Unavailable Luisa Call DO Unavailable Nikita Armijo MD Unavailable Jas Parra MD Unavailable Shameka Ashton MD Unavailable Salvador Markham MD 3 Salvador Markham MD Unavailable Source Comments Some departments are not documenting in the electronic medical record. If you do not see the information that you expected, contact Release of Information in the Health Information Management department at [phone] for further assistance in locating additional records.[facility] Allergies No Known Allergies Current Medications Prescription Sig. Disp. Refills Start End Date Status Date REPATHA SURECLICK 140 Inject 140 mg to area(s) 05/05/20 Active mg/mL injectable PEN as directed every 14 18 days. VITAMIN D 50,000 unit Take 50,000 Units by 04/27/20 Active capsule mouth twice weekly. 18 ascorbate calcium Take 500 mg by mouth. Active (ROSA M-C PO) Maybe a few times a week aspirin EC 81 mg tablet Take 81 mg by mouth Active daily. Vit A,C,W-Rjbh-Ozvvwi Take 1 capsule by mouth Active (ICAPS AREDS) daily. [phone] wujd-ha-hklz cap ergocalciferol (vitamin Take 1 tablet by mouth Active D2) 2,000 unit tab daily. CoQ10 (Ubiquinol) 200 mg Take 1 capsule by mouth Active cap daily. rosuvastatin (CRESTOR) 20 Take 20 mg by mouth 07/11/20 Active mg tablet daily. 18 ALPRAZolam (XANAX) 0.5 mg Take 0.5 mg by mouth at Active tablet bedtime as needed for Anxiety. hydrocortisone (CORTEF) 2 Tabs PO QAM and 1 Tab 08/05/20 Active 10 mg tablet PO QPM 18 warfarin (COUMADIN) 5 mg Take 5 mg by mouth daily. 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 Patient had a history of peripheral neuropathy that initially was thought it was myopathy secondary to statin however because of his symptoms did not improve patient had extensive workup. During the workup patient was found that he had proteinuria and hypoalbuminemia and he was referred to nephrology who recommended kidney biopsy that was performed on 07/07/2018. The kidney biopsy was positive for Congo red. The immunofluorescence for IgG, IgA, IgM, lambda, kappa, C1q and albumin were all negative. I had a prolonged discussion with the patient the need to perform an extensive workup in order to identify the type of amyloidosis that he has, all questions were answered during the office visit Recommendations: Check CBC with differential, CMP, total immunoglobulin, SPEP, serum free light chain, LDH, beta-2 microglobulin, 24-hour UPEP, urine immunofixation Check bone marrow biopsy/aspirate/cytogenetic/FISH/flow cytometry/order Congo red stain Check skeletal survey Check BNP, NT proBNP, troponin T Based on the biopsy results I will consider 2D echocardiogram We will send the kidney biopsy slides to [facility] for Mass spect to evaluate the type of his amyloidosis RTC in my clinic after the biopsy results are completed in order to perform further evaluation Proteinuria 07/07/2018 Last Assessment & Plan: Patient had proteinuria most likely secondary to his renal amyloidosis, still awaiting the final results of the biopsy to confirm the type of amyloidosis in order to start him on treatment afterwards Orthostatic lightheadedness 06/06/2018 Neuropathy 05/20/2018 Last Assessment & Plan: Patient had peripheral neuropathy that most likely is secondary to his amyloidosis. If his neuropathy does not improve we will consider gabapentin Muscle weakness 05/20/2018 Hyperglycemia 05/20/2018 Encounters Date Type Specialty Care Team Description 09/05/2018 Documentation Neurology Nikita Armijo MD 08/29/2018 Documentation Neurology Nikita Armijo MD 08/29/2018 Documentation Cardiology Malaika Cloud RN 08/23/2018 Office Visit Neurology Nikita Armijo MD Neuropathy ( Primary Dx); Light chain (AL) amyloidosis (HCC); Orthostatic lightheadedness 08/19/2018 Telephone Cardiology Destiny Quiros Records Request 08/18/2018 Office Visit Oncology Angella Rincon MD Neuropathy ( Primary Dx); Light chain (AL) amyloidosis (HCC); Proteinuria, unspecified type 08/16/2018 Orders Only Oncology Angella Rincon MD Multiple myeloma, remission status unspecified (HCC) (Primary Dx) 08/09/2018 Telephone Oncology Angella Rincon MD Test 08/08/2018 Hospital Lab Angella Rincon MD Amyloidosis, unspecified Encounter (HCC) 08/08/2018 Procedure visit Oncology Angella Rincon MD Amyloidosis , unspecified MoisesoGertrudere, DIRECTOR INSTITUTION-STAFF PSYCHIATRIST type (HCC) (Primary Dx); Multiple myeloma, remission status unspecified (HCC) 08/08/2018 Lab Only Oncology Angella Rincon MD Amyloidosis, unspecified type (HCC); Personal history of other diseases of the circulatory system 08/08/2018 Hospital Radiology Angella Rincon MD Encounter 08/08/2018 Office Visit Oncology Angella Rincon MD Multiple myeloma, remission status unspecified (HCC) (Primary Dx); Amyloidosis, unspecified type (HCC); Personal history of other diseases of the circulatory system ; Neuropathy; Proteinuria, unspecified type 08/05/2018 Telephone Oncology Angella Rincon MD Navigation Assessment 07/19/2018 Telephone Neurology Nikita Armijo MD General Question 07/11/2018 [facility] Albino Terrazas DO Other proteinuria Encounter 07/08/2018 Telephone Cardiology Fior Thomas, MILLIE Follow-up Phone Call 07/08/2018 Pharmacy Visit 07/07/2018 [facility] Sae Gu III, Proteinuria - Encounter MD 07/08/2018 Zahraa Casas MD Kelly, Brendan S, Serena Hays, Fior Manuel, RT(R)(),LRT Juancho Cartwright MD 07/07/2018 Anesthesia Radiology Alyssa Cabrera, SRNA Event 06/22/2018 Pre/Post Radiology Alba Villa RN Procedure 06/22/2018 Orders Only Radiology Zach Mcghee RN Other proteinuria (Primary Dx) from Last 3 Months Family History Medical History Relation Name Comments Motor Neuron Disease Father Relation Name Status Comments Father Mother Social History Tobacco Use Types Packs/Day Years Used Date Never Smoker Smokeless Tobacco: Never Used Alcohol Use Drinks/Week oz/Week Comments Yes Very Rare Sex Assigned at Date Recorded Not on file Last Filed Vital Signs Vital Sign Reading Time Taken Blood Pressure 126/79 08/23/2018 2:41 PM CDT Pulse 70 08/23/2018 2:41 PM CDT Temperature 36.5 C (97.7 F) 08/18/2018 12:10 PM CDT Respiratory Rate 16 08/18/2018 12:10 PM CDT Oxygen Saturation 98% 08/18/2018 12:10 PM CDT Inhaled Oxygen - - Concentration Weight 77.5 kg (170 lb 12.8 oz) 08/23/2018 2:41 PM CDT Height 175.3 cm (5' 9") 08/23/2018 2:41 PM CDT Body Mass Index 25.22 08/23/2018 2:41 PM CDT Plan of Treatment Health Maintenance Due Date Last Done Comments PHYSICAL (COMPREHENSIVE) 1947 EXAM PERTUSSIS VACCINE 1951 TETANUS VACCINE 1957 SHINGLES RECOMBINANT 1990 VACCINE (1 of 2) PNEUMONIA (PCV13/PPSV23) 2005 VACCINES (1 of 2 - PCV13) INFLUENZA VACCINE 06/15/2018 Procedures Procedure Name Priority Date/Time Associated Diagnosis Comments PATHOLOGY REPORTS FROM 08/25/2018 Results for this OUTSIDE SCAN 4:21 PM CDT procedure are in the results section. CYTOGENETICS SCAN 08/18/2018 Results for this 10:49 AM CDT procedure are in the results section. CYTOGENETICS SCAN 08/11/2018 Results for this 2:10 PM CDT procedure are in the results section. MISCELLANEOUS SURGICAL 08/08/2018 Amyloidosis (HCC) Results for this PATHOLOGY REFERENCE LAB 5:03 PM CDT procedure are in the TEST results section. MISCELLANEOUS SURGICAL 08/08/2018 Amyloidosis (HCC) Results for this PATHOLOGY REFERENCE LAB 5:03 PM CDT procedure are in the TEST results section. MISCELLANEOUS SURGICAL 08/08/2018 Amyloidosis (HCC) Results for this PATHOLOGY REFERENCE LAB 5:03 PM CDT procedure are in the TEST results section. [facility] 08/08/2018 Amyloidosis (HCC) Results for this 5:03 PM CDT procedure are in the results section. BONE MARROW 08/08/2018 Results for this 5:03 PM CDT procedure are in the results section. [facility] Routine 08/08/2018 Results for this 4:30 PM CDT procedure are in the results section. [facility] Routine 08/08/2018 Results for this 4:30 PM CDT procedure are in the results section. [facility] Routine 08/08/2018 Amyloidosis, unspecified Results for this 4:30 PM CDT type (HCC) procedure are in the results section. [facility] Routine 08/08/2018 Amyloidosis, unspecified Results for this 4:30 PM CDT type (HCC) procedure are in the results section. BETA 2 MICROGLOBULIN Routine 08/08/2018 Amyloidosis, unspecified Results for this 4:30 PM CDT type (HCC) procedure are in the results section. BNP (B-TYPE NATRIURETIC Routine 08/08/2018 Personal history of other Results for this PEPTI) 4:30 PM CDT diseases of the procedure are in the circulatory system results section. Amyloidosis, unspecified type (HCC) CBC AND DIFF Routine 08/08/2018 Amyloidosis, unspecified Results for this 4:30 PM CDT type (HCC) procedure are in the results section. COMPREHENSIVE METABOLIC Routine 08/08/2018 Amyloidosis, unspecified Results for this PANEL 4:30 PM CDT type (HCC) procedure are in the results section. ELECTROPHORESIS-SERUM Routine 08/08/2018 Amyloidosis, unspecified Results for this PROTEIN 4:30 PM CDT type (HCC) procedure are in the results section. IMMUNOGLOBULINS-IGA,IGG,I Routine 08/08/2018 Amyloidosis, unspecified Results for this GM 4:30 PM CDT type (HCC) procedure are in the results section. IMMUNOFIXATION, SERUM Routine 08/08/2018 Amyloidosis, unspecified Results for this (IFES) 4:30 PM CDT type (HCC) procedure are in the results section. KAPPA/LAMBDA FREE LIGHT Routine 08/08/2018 Amyloidosis, unspecified Results for this CHAINS 4:30 PM CDT type (HCC) procedure are in the results section. LDH-LACTATE DEHYDROGENASE Routine 08/08/2018 Amyloidosis, unspecified Results for this 4:30 PM CDT type (HCC) procedure are in the results section. PROTIME INR (PT) Routine 08/08/2018 Amyloidosis, unspecified Results for this 4:30 PM CDT type (HCC) procedure are in the results section. PTT (APTT) Routine 08/08/2018 Amyloidosis, unspecified Results for this 4:30 PM CDT type (HCC) procedure are in the results section. FLOW CYTOMETRY 08/08/2018 Results for this 3:43 PM CDT procedure are in the results section. LEUKEMIA/LYMPHOMA PNL, Routine 08/08/2018 Amyloidosis, unspecified Results for this BONE MARROW 3:43 PM CDT type (HCC) procedure are in the Multiple myeloma, results section. remission status unspecified (HCC) FE STAIN Routine 08/08/2018 Amyloidosis, unspecified Results for this 3:43 PM CDT type (HCC) procedure are in the Multiple myeloma, results section. remission status unspecified (HCC) CHROMOSOMES FISH DNA Routine 08/08/2018 Amyloidosis, unspecified Results for this PROBE 3:43 PM CDT type (HCC) procedure are in the Multiple myeloma, results section. remission status unspecified (HCC) CHROMOSOMES BONE MARROW Routine 08/08/2018 Amyloidosis, unspecified Results for this 3:43 PM CDT type (HCC) procedure are in the Multiple myeloma, results section. remission status unspecified (HCC) BONE MARROW BIOPSY Routine 08/08/2018 Amyloidosis, unspecified Results for this 3:43 PM CDT type (HCC) procedure are in the Multiple myeloma, results section. remission status unspecified (HCC) BONE MARROW ASP Routine 08/08/2018 Amyloidosis, unspecified Results for this 3:43 PM CDT type (HCC) procedure are in the Multiple myeloma, results section. remission status unspecified (HCC) METASTATIC SKELETAL Routine 08/08/2018 Amyloidosis, unspecified Results for this SURVEY 3:06 PM CDT type (HCC) procedure are in the results section. BONE MARROW ASPIRATION Routine 08/08/2018 Amyloidosis, unspecified Results for this PROCEDURE 3:00 PM CDT type (HCC) procedure are in the Multiple myeloma, results section. remission status unspecified (HCC) BIOPSY BONE MARROW Routine 08/08/2018 Amyloidosis, unspecified Results for this PROCEDURE 3:00 PM CDT type (HCC) procedure are in the Multiple myeloma, results section. remission status unspecified (HCC) [facility] 07/11/2018 Results for this 3:35 PM CDT procedure are in the results section. TELEMETRY STRIPS-SCAN 07/11/2018 Results for this 9:57 AM CDT procedure are in the results section. MAGNESIUM Routine 07/08/2018 Results for this 5:26 AM CDT procedure are in the results section. COMPREHENSIVE METABOLIC Routine 07/08/2018 Results for this PANEL 5:26 AM CDT procedure are in the results section. CBC Routine 07/08/2018 Results for this 5:26 AM CDT procedure are in the results section. [facility] Routine 07/07/2018 Results for this 8:00 PM CDT procedure are in the results section. MISC REFERENCE TEST Routine 07/07/2018 Other proteinuria Results for this 8:00 PM CDT procedure are in the results section. CBC Routine 07/07/2018 Results for this 8:00 PM CDT procedure are in the results section. PROTIME INR (PT) STAT 07/07/2018 Results for this 8:00 PM CDT procedure are in the results section. SURGICAL PATHOLOGY 07/07/2018 Results for this 2:03 PM CDT procedure are in the results section. IR RENAL BIOPSY Routine 07/07/2018 Other proteinuria Results for this 1:06 PM CDT procedure are in the results section. from Last 3 Months Results * PATHOLOGY REPORTS FROM OUTSIDE SCAN (08/25/2018 4:21 PM) Narrative Performed At Ordered by an unspecified provider. * CYTOGENETICS SCAN (08/18/2018 10:49 AM) Only the most recent of 2 results within the time period is included. Narrative Performed At Ordered by an unspecified provider. * MISCELLANEOUS SURGICAL PATHOLOGY REFERENCE LAB TEST (08/08/2018 5:03 PM) Only the most recent of 3 results within the time period is included. Test AMYLOID PROTEIN ID, MASS REFERENCE LAB SPECTROMETRY Reference Lab PERFORMED AT [facility] REFERENCE LAB LABORATORIES Results Ref Lab SEE [facility] TEST REFERENCE LAB Specimen Mail TISSUE, BLOCK, [phone] A1 REFERENCE LAB Performing Organization Address City/State/Zipcode Phone Number REFERENCE LAB REFERENCE LAB See results for address. * BONE MARROW (08/08/2018 5:03 PM) PATHOLOGY REPORT [facility] [email or web address] Department of Pathology and Laboratory Medicine [address] [place] [id number] Surgical Pathology Office:[phone] :[phone] SURGICAL PATHOLOGY REPORT NAME: NEGRITA MOORE SURG PATH #: [id number] MR #: [id number] ALT ID #: LOCATION: [facility] DATE OF PROCEDURE: 08/08/2018 AGE:77 SEX: M DATE RECEIVED: 08/08/2018 : 1940TIME RECEIVED:17:03 PHYSICIAN: Mckenzie Perales M.D. DATE OF REPORT: 08/09/2018 COPY TO:DATE OF PRINTIN08/09/2018 ############################## ############################## ############ Final Diagnosis: Bone marrow, left iliac crest, aspirate, biopsy, clot, and touch prep: Normocellular marrow (30-40%), normal trilineage hematopoiesis, 1% monoclonal lambda plasma cells, and positive for amyloidosis Peripheral blood smear:Absolute lymphopenia Attestation: By this signature, I attest that I have personally formulated the final interpretation expressed in this report and that the above diagnosis is based upon my examination of the slides and/or other material indicated in this report. ksw/08/09/2018 Procedures/Addenda Addendum Date Ordered: 08/09/2018 Status:Signed Out Date Complete: 08/09/2018 By: Flaco Zhao MD Date Reported: 08/09/2018 Addendum Diagnosis No change in diagnosis. Addendum Comment Quantitative chromogenic in situ hybridization stains on the clot section for kappa and lambda show clusters of monoclonal lambda plasma cells (< 0.5 kappa:lambda ratio by the manual method).The positive and negative controls for mRNA expression were reviewed and reacted appropriately. Flaco Zhao MD Material Received: A: left bone marrow clot for myeloma B: left bone marrow biopsy History: 77-year-old male with a history of kidney amyloidosis Gross Description: A. Received in Zinc formalin labeled "left bone marrow clot for myeloma" is a 4.0 x 1.1 x 0.3 cm aggregate of friable red-brown clotted blood elements. The specimen is serially sectioned and entirely submitted in cassettes A1-A2. (lmt) B. Received in Zinc formalin labeled "left bone marrow biopsy" is a 1.6 cm in length and 0.2 cm in diameter cylindrical, yellow-lombardo firm piece of tissue. The specimen is submitted in cassette B1 after decalcification. (lmt) 08/08/2018 Microscopic Description: CBC Data:HGB 13.5 (g/dL); RBC 4.18 (m/uL); MCV 94.4 (FL); RDW 14.0 (%); WBC 7.0 (k/uL); PLT 211 (k/uL). Blood Smear Diff (%): Segmented neutrophils 84; lymphocytes 14; monocytes 2 Blood Smear Morphology: RBC:Normal WBC:Lymphopenia Platelets:Normal Bone Marrow Aspirate/Touch Prep Morphology: Aspirate Adequacy:Adequate Touch Prep Adequacy:Adequate Cellularity:Normal Megakaryocytes:Normal Blasts:Normal Erythroid:Normal Granulocytes:Normal Lymphocytes:Normal Plasma Cells:Normal Bone Marrow Differential Cell Count (%): Blasts:0 Promyelocytes: 0 Myelocytes: 8 Metamyelocytes: 15 Segs/Bands: 27 Eosinophils: 3 Erythroid: 32 Monocytes: 1 Lymphocytes: 13 Plasma cells: 1 M:E ratio: 1.6 Bone Marrow Core Biopsy: Adequacy:Suboptimal; aspiration artifact Length:1.0 cm Cellularity:10-20% overall, patchy, range <5% to 30% Megakaryocytes:Normal Hematopoiesis:Resembles aspirate smear / touch prep Atypical Infiltrates:None Bone Marrow Cell Clot: Adequacy:Adequate Cellularity:30-40% Pertinent Findings:Resembles core biopsy Additional Stains: Iron Stain:Iron stain on the aspirate smear shows normal storage iron, decreased sideroblast iron, and no ring sideroblasts. Immunohistochemistry:Not Performed Chromogenic In Situ Hybridization:Pending. Other Special Stains:Congo red stain on the core section is positive for amyloid within a single large blood vessel. Ancillary Studies: Flow Cytometry:Performed, see separate report; confirms 2% monoclonal lambda plasma cells. Cytogenetics:Performed, see separate report Fluorescence In Situ Hybridization:Performed, see separate report Molecular Genetics:Not Performed Preliminary Diagnosis: Not Performed If immunohistochemical stains and/or in situ hybridization are cited in this report, the performance characteristics were determined by the Department of Pathology and Laboratory Medicine of the [facility] ([employer]) in compliance with CLIA'88 regulations.Some of these tests rely on the use of "analyte specific reagents" and are subject to specific labeling requirements by the FDA. Known positive and negative control tissues demonstrate appropriate staining.Results should be interpreted with caution given the likelihood of false negativity on decalcified specimens.This testing was developed by the Department of Pathology and Laboratory Medicine of the [facility].It has not been cleared or approved by the FDA.The FDA has determined that such clearance or approval is not necessary. Performing Organization Address City/State/Zipcode Phone Number [facility] RES[facility] * [facility] TEST (08/08/2018 5:03 PM) Only the most recent of 4 results within the time period is included. [facility] AMP[facility], Amyloid Protein ID, REFERENCE LAB Info Apolinar, LC MS/MS [facility] Result SEE COMMENTS 08/17/2018 12:51 REFERENCE LAB PM Test ResultFlag UnitRefValue ------ Amyloid Protein ID, Par, LC MS/MS Interpretation Kidney, specimen for amyloid typing ([id number]; 07/07/2018): Involved by amyloidosis, AL (lambda)-type. A Congo red stain was performed on paraffin sections of the specimen. Congo red-positive amyloid deposits are present. Liquid chromatography tandem mass spectrometry (LC MS/MS) was performed on peptides extracted from Congo red-positive, microdissected areas of the paraffin-embedded specimen. LC MS/MS detected a peptide profile consistent with AL (lambda)-type amyloid deposition. These findings support the diagnosis of amyloidosis and indicate AL (lambda)-type amyloid deposition. Comment: In this anatomic site and with the observed histologic pattern of amyloid deposition, AL amyloidosis is usually associated with systemic disease due to an underlying clonal plasma cell proliferation/B-cell lymphoma.Correlation of the mass spectrometry findings with the clinical and laboratory features is recommended. If there are any questions about the analysis or the diagnosis in this case, please call the Department of Laboratory Medicine and Pathology, [facility] at . Report electronically signed by Shakeel Haynes M.D. Material Received A. [id number]: Kidney, togiak 1 block Disclaimer This test was developed and its performance characteristics determined by [facility] in a manner consistent with CLIA requirements. This test has not been cleared or approved by the U.S. Food and Drug Administration. Test Performed by: [place] [address] Performing Organization Address City/[facility] Phone Number REFERENCE LAB REFERENCE LAB See results for address. * [facility] (08/08[facility]2018 4:30 PM) Ref Lab Test Code [id number], Troponin T REFERENCE LAB REF LAB RESULT (MSAR) SEE NOTE REFERENCE LAB Test name Result Flag UnitsRefIntvl - Troponin-T 0.04 H ng/mL <=0.01 Performed by [facility], [address] [place] [address] [email or web address], Loi Wang MD, Lab. Director Performing Organization Address City/State/Zipcode Phone Number REFERENCE LAB REFERENCE LAB See results for address. * [facility] (08/08/2018 4:30 PM) Only the most recent of 3 results within the time period is included. Test Troponin T REFERENCE LAB Reference Lab PERFORMED AT [facility] REFERENCE LAB LABORATORY-FOR REF RANGE SEE REPORT. Results Ref Lab SEE REF LAB RESULT REFERENCE LAB Specimen Mail SERUM REFERENCE LAB Performing Organization Address [facility] Phone Number REFERENCE LAB REFERENCE LAB See results for address. * IMMUNOFIXATION, SERUM (IFES) (08/08/2018 4:30 PM) Immuno Fix-Serum NO PARAPROTEIN SEEN [facility] Pathologist Signature INTERPRETED BY LUCERO RANGEL M.D. [facility] By the PATH SIGNATURE ABOVE, I attest that I have personally formulated the final interpretation expressed in this report and that the above diagnosis is based upon my examination of the slides and/or other material indicated in this report. Specimen Blood Performing Organization Address [facility] Phone Number [facility] [address] [place] [address] * KAPPA/LAMBDA FREE LIGHT CHAINS (08/08/2018 4:30 PM) Lithium, FLC 1.20 0.33 - 1.94 MG/DL [facility] Comment: Freelite results should always be interpreted in conjunction with other laboratory tests and clinical evidence.The possibility of Antigen Excess exists and can cause Immunoassays to under estimate very high concentrations of antigen. Any discordant results should be discussed with Dr. Montaño. Lambda, FLC 4.03 (H) 0.57 - 2.63 MG/DL [facility] Lithium/Lambda FLC 0.30 0.26 - 1.65 MAIN LAB Specimen Blood Performing Organization Address [facility] Phone Number [facility] [address] [place] [address] * PTT (APTT) (08/08/2018 4:30 PM) APTT 28.9Comment: NOTE NEW 20.0 - 36.0 SEC MAIN LAB REFERENCE RANGES Specimen Blood Performing Organization Address [facility] [facility] Phone Number MAIN LAB [address] [place] [address] * PROTIME INR (PT) (08/08/2018 4:30 PM) Only the most recent of 2 results within the time period is included. INR 0.9 0.8 - 1.2 MAIN LAB Specimen Blood Performing Organization Address [facility]/Zipcode Phone Number MAIN LAB [address] [place] [address] * CBC AND DIFF (08/08/2018 4:30 PM) White Blood Cells 7.0 4.5 - 11.0 K/UL [facility] RBC 4.18 (L) 4.4 - 5.5 M/UL [facility] Hemoglobin 13.5 13.5 - 16.5 GM/DL [facility] Hematocrit 39.5 (L) 40 - 50 % [facility] MCV 94.4 80 - 100 FL [facility] MCH 32.3 26 - 34 PG [facility] MCHC 34.2 32.0 - 36.0 G/DL [facility] RDW 14.0 11 - 15 % [facility] Platelet Count 211 150 - 400 K/UL [facility] MPV 9.6 7 - 11 FL [facility] Segmented Neutrophils 84 (H) 41 - 77 % [facility] Lymphocytes 14 (L) 24 - 44 % [facility] Monocytes 2 (L) 4 - 12 % [facility] Normal RBC Morph NORMAL [facility] Platelet Estimate NORMAL [facility] Absolute Neutrophil Count 5.88 1.8 - 7.0 K/UL [facility] Manual Specimen Blood Performing Organization Address City/[facility]/Zipcode Phone Number [facility] [address] [place] [address] * IMMUNOGLOBULINS-IGA,IGG,IGM (08/08/2018 4:30 PM) IgG 277 (L) 762 - 1,488 MG/DL [facility] IgA 46 (L) 70 - 390 MG/DL [facility] IgM 31 (L) 38 - 328 MG/DL [facility] Specimen Blood Performing Organization Address City/[facility]/Zipcode Phone Number [facility] LAB [address] [place] [address] * ELECTROPHORESIS-SERUM PROTEIN (08/08/2018 4:30 PM) Total Protein-SEP 4.0 (L) 6.0 - 8.0 G/DL [facility] MAIN LAB Albumin % 55.7 48 - 68 % [facility] MAIN LAB Alpha 1 % 6.0 2 - 6 % [facility] MAIN LAB Alpha 2 % 19.8 (H) 5 - 15 % [facility] MAIN LAB Beta %,Serum 11.4 9 - 17 % [facility] MAIN LAB Gamma % 7.1 (L) 9 - 21 % [facility] MAIN LAB Interpretation - SEP HYPOALBUMINEMIA [facility] MAIN LAB HYPOGAMMAGLOBULINEMIA Pathologist Signature INTERPRETED BY LUCERO RANGEL M.D. [facility] MAIN LAB By the PATH SIGNATURE ABOVE, I attest that I have personally formulated the final interpretation expressed in this report and that the above diagnosis is based upon my examination of the slides and/or other material indicated in this report. Specimen Blood Performing Organization Address City/[facility]/Zipcode Phone Number [facility] LAB [address] [place] [address] * BNP (B-TYPE NATRIURETIC PEPTI) (08/08/2018 4:30 PM) B Type Natriuretic 611.0 (H) 0 - 100 PG/ML [facility] Peptide Specimen Blood Performing Organization Address [facility]/Zipcode Phone Number [facility] [address] [place] [address] * LDH-LACTATE DEHYDROGENASE (08/08/2018 4:30 PM) Lactate Dehydrogenase 234 (H) 100 - 210 U/L [facility] Specimen Blood Performing Organization Address [facility] Phone Number [facility] [address] [place] [address] * BETA 2 MICROGLOBULIN (08/08/2018 4:30 PM) B2 Microglobulin 1.9 0.8 - 2.3 MG/L [facility] Specimen Blood Performing Organization Address [facility]ook Phone Number [facility] [address] [place] [address] * COMPREHENSIVE METABOLIC PANEL (08/08/2018 4:30 PM) Only the most recent of 2 results within the time period is included. Sodium 126 (L) 137 - 147 MMOL/L [facility] Potassium 4.1 3.5 - 5.1 MMOL/L [facility] Chloride 95 (L) 98 - 110 MMOL/L [facility] Glucose 105 (H) 70 - 100 MG/DL [facility] Blood Urea Nitrogen 9 7 - 25 MG/DL [facility] Creatinine 0.77 0.4 - 1.24 MG/DL [facility] Calcium 7.9 (L) 8.5 - 10.6 MG/DL [facility] Total Protein 4.2 (L) 6.0 - 8.0 G/DL [facility] Total Bilirubin 0.4 0.3 - 1.2 MG/DL [facility] Albumin 2.3 (L) 3.5 - 5.0 G/DL [facility] Alk Phosphatase 67 25 - 110 U/L [facility] AST (SGOT) 21 7 - 40 U/L [facility] CO2 31 (H) 21 - 30 MMOL/L [facility] ALT (SGPT) 14 7 - 56 U/L [facility] Anion Gap <1 (L) 3 - 12 [facility] eGFR Non >60 >60 mL/min [facility] Comment: The eGFR is not validated for use in drug dosing adjustments.Continue to use estimated creatinine clearance per dosing reference text.Please contact the Clinical Pharmacist for questions. eGFR >60 >60 mL/min [facility] Comment: The eGFR is not validated for use in drug dosing adjustments.Continue to use estimated creatinine clearance per dosing reference text.Please contact the Clinical Pharmacist for questions. Specimen Blood Performing Organization Address City/State/Zipcode Phone Number [facility] [address] [place] [address] * FLOW CYTOMETRY (08/08/2018 3:43 PM) PATHOLOGY REPORT [facility] [employer] [facility] www[email or web address] Aric Broussard MD, Director of Flow Cytometry Laboratory Department of Pathology and Laboratory Medicine [address] [address] Surgical Pathology Office:[phone] :[phone] FLOW CYTOMETRY REPORT NAME: NEGRITA MOORE SURG PATH #: [id number] MR #: [id number] SPECIMEN CLASS: LC BILLING #: [id number] ALT ID #:LOCATION: [facility] DATE OF PROCEDURE: 08/08/2018 AGE:77 SEX: M DATE RECEIVED: 08/08/2018 : 1940TIME RECEIVED:16:59 PHYSICIAN: Mckenzie Perales M.D. DATE OF REPORT: 08/09/2018 COPY TO:DATE OF PRINTIN08/09/2018 Material Received: A: Bone Marrow History: 77 year old male with a history of kidney amyloidosis ############################## ############################## ############ Final Diagnosis: Bone marrow, flow cytometry:Neoplastic plasma cells (2%; monoclonal lambda) Interpretation: CD45 antibody is repeatedly used in tubes 1-2 for selecting CD45 positive events and excluding cell debris and CD45 negative events.It is necessary for independent analysis of CD45 positive events in each tube. CD38 and CD138 antibodies are repeatedly used in tubes 1-2 for selective analysis of CD38 and CD138 double positive events.It is necessary for independent and selective analysis of CD38 and CD138 double positive events in each tube. Plasma cells comprise 2% of total events and show increased and aberrant expression of CD20, CD117, and monoclonal cytoplasmic lambda.There is decreased and aberrant expression of CD19, CD27, and CD81.These results are diagnostic of neoplastic plasma cells. Attestation: By this signature, I attest that I have personally formulated the final interpretation expressed in this report and that the above diagnosis is based upon my examination of the slides and/or other material indicated in this report. +++Electronically Signed Out By+++ [facility]/08/08/2018 Interpreted by: Flaco Zhao MD 08/09/2018 ############################## ############################## ############ Lab Data: Flow Cytometry - Multiple Myeloma, Minimal Residual Disease Panel Analytic sensitivity of the lower detection limit in this assay is 0.01% Plasma Cell Associated Markers (% Positive Cells): VC28=996; GO147=458; cyKappa=5; cyLambda=93; cyK/cyL ratio=0.1 Miscellaneous Markers (% Positive Cells): CD19=5; CD20=44; CD27=35; CD28=2; CD45=93; CD56=3; CD81=69; KD940=23 Cell Viability (%):n/a Number of Cells Analyzed:1,103,218 Plasma Cells Detected:1.66 Total Number of Markers:15 Summary of Marker Combinations: 81/28/138/38/45/27/20; cyKappa/cyLambda/138/117/38/45 /56/19 This test was developed and its performance characteristics determined by the [facility] Flow Cytometry Laboratory.It has not been cleared or approved by the U.S. Food and Drug Administration (FDA).The FDA has determined that such clearance or approval is not necessary. Performing Organization Address City/State/Zipcode Phone Number LAB RESULTS * LEUKEMIA/LYMPHOMA PNL, BONE MARROW (08/08/2018 3:43 PM) Leuk/Lymph Interpretation SEE PATHOLOGY REPORT MAIN LAB Specimen/LLM BONE MARROW MAIN LAB Specimen Bone Marrow - Bone Marrow Performing Organization Address City/[facility]ode Phone Number MAIN LAB [address] [place] [address] * CHROMOSOMES FISH DNA PROBE (08/08/2018 3:43 PM) Chromosomes Fish DNA SEE DRIVING INSTRUCTOR FOR REPORT MAIN LAB Probe Specimen Bone Marrow Performing Organization Address [facility] Cent[facility]ode Phone Number MAIN LAB [address] [place] [address] * CHROMOSOMES BONE MARROW (08/08/2018 3:43 PM) Chromosomes Bone Marrow SEE DRIVING INSTRUCTOR FOR REPORT MAIN LAB Specimen Bone Marrow Performing Organization Address City/[facility] Phone Number MAIN LAB [address] [place] [address] * FE STAIN (08/08/2018 3:43 PM) Bone Marrow FE SEE PATHOLOGY REPORT MAIN LAB Specimen Bone Marrow - Bone Marrow Performing Organization Address [facility] Cent[facility]ode Phone Number MAIN LAB [address] [place] [address] * BONE MARROW ASP (08/08/2018 3:43 PM) Bone Marrow Asp SEE PATHOLOGY REPORT MAIN LAB Specimen Bone Marrow - Bone Marrow Performing Organization Address [facility] Centercode Phone Number MAIN LAB [address] [place] [address] * BONE MARROW BIOPSY (08/08/2018 3:43 PM) Bone Marrow Bx SEE PATHOLOGY REPORT MAIN LAB Specimen Bone Marrow - Bone Marrow Performing Organization Address City/[facility]/Zipcode Phone Number MAIN LAB [address] [place] [address] * METASTATIC SKELETAL SURVEY (08/08/2018 3:06 PM) Impressions Performed At 1.Spotty osteopenia involving both proximal humeri, and patchy lucency in [facility] RESULTS the right distal tibia likely represent focal fat or demineralization, less likely infiltrative myeloma. No endosteal scalloping or pathologic fracture identified. 2.Diffuse osteopenia limits sensitivity of the exam. Finalized by Murray Bianchi M.D. on 08/08/2018 3:19 PM. Dictated by Murray Bianchi M.D. on 08/08/2018 3:15 PM. Narrative Performed At Exam: METASTATIC SKELETAL SURVEY [facility] RESULTS CLINICAL INDICATION: 77 years Male; Multiple Myeloma, assess for lytic lesions or fractures.Evaluate for lytic lesions. COMPARISON: None available. Findings: Lateral calvarium: No discrete lytic lesion or destructive osseous process identified. Severe spondylosis in the cervical spine is incompletely evaluated due to curvature. Probable neural foraminal stenosis is noted. This could be better evaluated by cervical spine MRI if clinically warranted. Bilateral upper extremities: Spotty osteopenia throughout both proximal humeri , without discrete lytic lesion or endosteal scalloping to confirm myeloma. Mild degenerative changes of both DRUJs. Moderate arthrosis of the left greater than right acromioclavicular joints. Thoracic and lumbar spine: Diffuse osteopenia limits sensitivity for evaluation of lytic lesions. No definite compression fractures or lytic lesions identified. Moderate diffuse thoracic and lumbar spondylosis. Sternotomy wires. Arterial calcifications. Pelvis: No lytic lesion or discrete destructive osseous process identified. Mild arthrosis of both hips and symphysis pubis as well as the sacroiliac joints. Mild lower lumbar facet osteoarthritis. Arterial calcifications. Bilateral lower extremities: Patchy lucency involving the right mid shaft tibia and distal tibia likely represent focal fat, less likely myeloma. Otherwise, no discrete lytic lesion or destructive osseous process identified. No endosteal scalloping. Knees and ankles are grossly unremarkable. Procedure Note Interface, Radiant Results - 08/08/2018 3:22 PM CDT Exam: METASTATIC SKELETAL SURVEY CLINICAL INDICATION: 77 years Male; Multiple Myeloma, assess for lytic lesions or fractures. Evaluate for lytic lesions. COMPARISON: None available. Findings: Lateral calvarium: No discrete lytic lesion or destructive osseous process identified. Severe spondylosis in the cervical spine is incompletely evaluated due to curvature. Probable neural foraminal stenosis is noted. This could be better evaluated by cervical spine MRI if clinically warranted. Bilateral upper extremities: Spotty osteopenia throughout both proximal humeri, without discrete lytic lesion or endosteal scalloping to confirm myeloma. Mild degenerative changes of both DRUJs. Moderate arthrosis of the left greater than right acromioclavicular joints. Thoracic and lumbar spine: Diffuse osteopenia limits sensitivity for evaluation of lytic lesions. No definite compression fractures or lytic lesions identified. Moderate diffuse thoracic and lumbar spondylosis. Sternotomy wires. Arterial calcifications. Pelvis: No lytic lesion or discrete destructive osseous process identified. Mild arthrosis of both hips and symphysis pubis as well as the sacroiliac joints. Mild lower lumbar facet osteoarthritis. Arterial calcifications. Bilateral lower extremities: Patchy lucency involving the right mid shaft tibia and distal tibia likely represent focal fat, less likely myeloma. Otherwise, no discrete lytic lesion or destructive osseous process identified. No endosteal scalloping. Knees and ankles are grossly unremarkable. IMPRESSION 1. Spotty osteopenia involving both proximal humeri, and patchy lucency in the right distal tibia likely represent focal fat or demineralization, less likely infiltrative myeloma. No endosteal scalloping or pathologic fracture identified. 2. Diffuse osteopenia limits sensitivity of the exam. Finalized by Murray Bianchi M.D. on 08/08/2018 3:19 PM. Dictated by Murray Bianchi M.D. on 08/08/2018 3:15 PM. Performing Organization Address City/State/Zipcode Phone Number [facility] RESULTS * BIOPSY BONE MARROW PROCEDURE (08/08/2018 3:00 PM) Narrative Performed At Chico Dunn APRN-YASSINE 08/08/20183:51 PM OTHER OUTSIDE LAB Bone Marrow Procedure Note Performing Provider: Chico Dunn APRN Collaborating Provider: Diagnosis: Multiple Myeloma Indications: Diagnostic Procedure Details: Consent was obtained from patient, signed copy placed in chart. Risks of the procedure were explained including infection, pain, nerve damage and bleeding. Time out performed: Consent obtained, correct patient verified, correct procedure verified, correct site verified, patient marked as necessary. The patient was positioned in the prone position.The left iliac crest was prepped and draped in sterile fashion with betadine and sterile drapes. 10 ml of 1% Lidocaine was used to anesthetize the skin and bone cortex. An aspirate needle was then inserted into the marrow and fluid obtained.The needle was removed and pressure applied.Next the bone marrow biopsy needle was inserted, a core biopsy was obtained and the needle removed. Pressure was held until hemostasis.Betadine cleaned from skin and bandaide applied. Samples were sent for bone marrow biopsy and aspirate, flow cytometry,FISH, cytogenetics andCongo Red stain. Complications: None.Patient tolerated procedure well. CHELSEY Loja Performing Organization Address City/[facility] Cent[facility] Phone Number OTHER OUTSIDE LAB * TELEMETRY STRIPS-SCAN (07/11/2018 9:57 AM) Narrative Performed At Ordered by an unspecified provider. * CBC (07/08/2018 5:26 AM) Only the most recent of 2 results within the time period is included. White Blood Cells 6.9 4.5 - 11.0 K/UL MAIN LAB RBC 3.95 (L) 4.4 - 5.5 M/UL MAIN LAB Hemoglobin 12.7 (L) 13.5 - 16.5 GM/DL MAIN LAB Hematocrit 37.1 (L) 40 - 50 % MAIN LAB MCV 94.0 80 - 100 FL MAIN LAB MCH 32.2 26 - 34 PG MAIN LAB MCHC 34.2 32.0 - 36.0 G/DL MAIN LAB RDW 14.3 11 - 15 % [facility] MAIN LAB Platelet Count 211 150 - 400 K/UL MAIN LAB MPV 9.2 7 - 11 FL MAIN LAB Specimen Blood Performing Organization Address City/[facility] Cent[facility]ode Phone Number MAIN LAB [address] [place] [address] * MAGNESIUM (07/08/2018 5:26 AM) Magnesium 1.7 1.6 - 2.6 mg/dL MAIN LAB Specimen Blood Performing Organization Address City/[facility] Phone Number [facility] [address] [place] [address] * SURGICAL PATHOLOGY (07/07/2018 2:03 PM) PATHOLOGY REPORT [facility] [employer] [facility] www[employer] Department of Pathology and Laboratory Medicine [address] [place] [address] Surgical Pathology Office:[phone] :[phone] SURGICAL PATHOLOGY REPORT NAME: NEGRITA MOORE SURG PATH #: [id number] MR #: [id number] SPECIMEN CLASS: SR BILLING #: [id number] ALT ID #:LOCATION: [id number] DATE OF PROCEDURE: 07/07/2018 AGE:77 SEX: M DATE RECEIVED: 07/07/2018 : 1940TIME RECEIVED: 14:03 PHYSICIAN: JAS PARRA MD DATE OF REPORT: 07/20/2018 COPY TO:DATE OF PRINTIN07/20/2018 ############################## ############################## ############ Final Diagnosis: A, B and C. Kidney ([place]), core needle biopsy: Amyloidosis. Attestation: By this signature, I attest that I have personally formulated the final interpretation expressed in this report and that the above diagnosis is based upon my examination of the slides and/or other material indicated in this report. +++ +++ ksw/07/08/2018 ############################## ############################## ############ Material Received: A: [place] Kidney with Protocol B: Immunofluorescence ([place])-[place] [facility] C: Electron microscopy (glutaraldehyde)-[place] ( mailed out to [facility] for processing) History: 77-year-old male with history of proteinuria Microscopic Description: Light microscopy: Core biopsy of renal tissue is examined at 10 levels of section and using H and E, PAS, Darshan's and silver stains. The specimen consists most of renal cortex. Up to 15 glomeruli and 2 arteries per level of section are present.No global or FSGS is identified. All glomeruli show mild mesangial expansion and focal thickening of the capillary loops with amorphic eosinophilic appearance and occasional feathery spikes. There is mild interstitial fibrosis. The tubules are unremarkable except occasionally thickening of basement membrane.The arteries are unremarkable. Immunofluorescence microscopy: * renal tissue containing up to 4 glomeruli and evaluated by direct immunofluorescence. IgA, IgG, IgM, C1q, C3, kappa, lambda and albumin are negative. * This test was developed and its performance characteristics determined by the [facility] pathology laboratory. It has not been cleared or approved by the U.S. Food and drug Administration. The FDA has determined that such clearance or approval is not necessary. This laboratory is certified under the Clinical Laboratory Improvement Amendments of 1988 (CLIA 1988) as qualification to perform high complexity clinical laboratory testing. Electron microscopy: One glomerulus is examined by electron microscopy. There are random oriented fibrils deposits in the subepithelium, mesangium and basement membrane. These findings are consistent with amyloid. The visceral epithelial cell foot processes are effaced. Congo red special stain for amyloid is positive. Gross Description: A. Received in formalin labeled "left [place] renal biopsy" is a 1.1 cm in length by 0.1 in diameter core of lombardo-red tissue . The specimen is submitted entirely in cassette A1. (ab) B. Received in Renan's solution labeled "left [place] renal biopsy-IF" is a 0.9 x 0.1 x 0.1 cm core of lombardo-red tissue. The specimen is submitted entirely for immunofluorescence studies.(ab) C. Received in saline and transferred to formalin labeled "left [place] renal biopsy-EM" is a 0.8 x 0.1 x 0.1 cm core of lombardo-red tissue. The specimen is submitted entirely in sent to [facility] for electron microscopy studies.(ab) ab/07/07/2018 If immunohistochemical stains and/or in situ hybridization are cited in this report, the performance characteristics were determined by the Department of Pathology and Laboratory Medicine of the [facility] ([employer]) in compliance with CLIA'88 regulations.Some of these tests rely on the use of "analyte specific reagents" and are subject to specific labeling requirements by the FDA. Known positive and negative control tissues demonstrate appropriate staining.Results should be interpreted with caution given the likelihood of false negativity on decalcified specimens.This testing was developed by the Department of Pathology and Laboratory Medicine of the [facility].It has not been cleared or approved by the FDA.The FDA has determined that such clearance or approval is not necessary. Performing Organization Address City/State/Zipcode Phone Number [facility] RESULTS * IR RENAL BIOPSY (07/07/2018 1:06 PM) Impressions Performed At Successful ultrasound guided left kidney biopsy as described.Specimen [facility] RESULTS was confirmed adequate by the cytopathologist at time of procedure. Nathan Yadav M.D., the attending radiologist, was present for the procedure, personally reviewed the images, and formulated the interpretations and opinions expressed in this report. @TT Finalized by NATHAN SOLER on 07/11/2018 4:26 PM. Dictated by NATHAN SOLER on 2017 4:25 PM. Narrative Performed At Ultrasound Guided Percutaneous [place] Kidney Biopsy [facility] RESULTS INDICATION:Renal failure HAND HARDENER:Nathan Soler M.D. DEVICE:18g biopsy gun through 17g needle guide [id number] gauge cores COMPLICATIONS:None immediate TECHNIQUE: The risks, benefits, and alternatives to the procedure and sedation were explained to the patient. Written informed consent was obtained. Anesthesia was provided by the anesthesiology service. The abdomen was prepped and draped in sterile fashion.The patient's blood pressure was confirmed to be within criteria for renal biopsy per interdepartmental protocol.Ultrasonographic evaluation of the left kidney was carried out. Using local anesthetic, under direct ultrasound guidance and with images transferred to PACS, a 17 gauge needle guide was advanced into the kidney. Three coaxial passes were made with a 18 gauge biopsy gun. The specimens were placed in formalin.The tract was embolized with a minimal amount of Gelfoam slurry and a sterile dressing was applied. The procedure was well-tolerated, and the patient was discharged from the angio suite in satisfactory condition. FINDINGS: 1. Limited ultrasound evaluation shows no evidence of significant hydronephrosis. 2. Ultrasound documentation of each biopsy pass was confirmed and stored to PACS. 3. Three 18 gauge renal cores appeared adequate,which was confirmed by cytopathologist at time of procedure. 4. There is no evidence for complication post kidney biopsy. Procedure Note Interface, Radiant Results - 07/11/2018 4:29 PM CDT Ultrasound Guided Percutaneous [place] Kidney Biopsy INDICATION: Renal failure HAND HARDENER: Nathan Soler M.D. DEVICE: 18g biopsy gun through 17g needle guide SPECIMENS Three18 gauge cores COMPLICATIONS: None immediate TECHNIQUE: The risks, benefits, and alternatives to the procedure and sedation were explained to the patient. Written informed consent was obtained. Anesthesia was provided by the anesthesiology service. The abdomen was prepped and draped in sterile fashion. The patient's blood pressure was confirmed to be within criteria for renal biopsy per interdepartmental protocol. Ultrasonographic evaluation of the left kidney was carried out. Using local anesthetic, under direct ultrasound guidance and with images transferred to PACS, a 17 gauge needle guide was advanced into the kidney. Three coaxial passes were made with a 18 gauge biopsy gun. The specimens were placed in formalin. The tract was embolized with a minimal amount of Gelfoam slurry and a sterile dressing was applied. The procedure was well-tolerated, and the patient was discharged from the angio suite in satisfactory condition. FINDINGS: 1. Limited ultrasound evaluation shows no evidence of significant hydronephrosis. 2. Ultrasound documentation of each biopsy pass was confirmed and stored to PACS. 3. Three 18 gauge renal cores appeared adequate, which was confirmed by cytopathologist at time of procedure. 4. There is no evidence for complication post kidney biopsy. IMPRESSION Successful ultrasound guided left kidney biopsy as described. Specimen was confirmed adequate by the cytopathologist at time of procedure. Nathan Yadav M.D., the attending radiologist, was present for the procedure, personally reviewed the images, and formulated the interpretations and opinions expressed in this report. @TT Finalized by NATHAN SOLER on 07/11/2018 4:26 PM. Dictated by NATHAN SOLER on 2017 4:25 PM. Performing Organization Address City/State/Zipcode Phone Number [facility] RESULTS from Last 3 Months
--- OUTSIDE RECORDS SUMMARY | 2018-09-19 06:42 | XMS REPORT | Encounter Summary ---
Author Author [facility] Organization [facility] Address Unknown Phone Unavailable Care Team Providers Care Criminal Justice Social Worker Name Role Phone Sae Gu MD PCP Sae Allen MD Unavailable Luisa Call DO Unavailable Nikita Armijo MD Unavailable Isai Parra MD Unavailable Shameka Ashton MD Unavailable Salvador Markham MD 3 Reason for Visit * Reason Comments Test Encounter Details Date Type Department Care Team Description 08/09/[address] [facility] Angella Rincon MD [facility] - [facility] Exam [address] [facility] [place] [address] [address] [facility] [phone] [place], [place] [phone] Social History Tobacco Use Types Packs/Day Years Used Date Never Smoker Smokeless Tobacco: Never Used Alcohol Use Drinks/Week oz/Week Comments Yes Very Rare Sex Assigned at Date Recorded Not on file as of this encounter Miscellaneous Notes * Telephone Encounter - Mary Gallego RN - 08/09/2018 4:45 PM CDT Per Delicia with [facility], turnaround time for mass spectometry for amyloidosis is typically 3 weeks for results and [facility] will be starting the test tomorrow. Phone number to [place] ( ) provided by Delicia for this CNC to discuss expediting testing. Spoke with Gisel with [facility] who requested electronic order number for testing which should start with the letter "M". Gisel states to ask Delicia for this number. Request sent to Delicia to inquire about order number at this time. Per Gisel, once order # is obtained, will need to call the above phone number back and ask to be connected with hematopathology. Gisel states to discuss urgency of the case with the hematopatholoigsts directly since requesting "expedite" to the initial number will not speed up process of interpretation and will cost an additional $30 whereas this would not occur if talking directly to the hematopathologists regarding the urgency of the request. Gisel also states testing typically takes up to 3 weeks but can be marked as urgent and each case is variable. Will call hematopathology once order # received. Updated patient of the above. Pt would like to have placeholder appointments for both 08/15 and also 08/30 at 1120 and will cancel one appointment once receiving an estimated time of finalized mass spectometry results. Patient also requesting to talk to financial counselors to see if potential $4000 cost of mass spectometry would be covered by insurance or if they will need to pay out of pocket. Request sent to scheduling to open [address] Rincon as well as request to financial counselors sent to call patient to discuss test coverage. in this encounter Plan of Treatment Not on fileas of this encounter Visit Diagnoses Not on filein this encounter
--- OUTSIDE RECORDS SUMMARY | 2018-09-19 06:42 | XMS REPORT | Encounter Summary ---
Author Author [facility] Organization [facility] Address Unknown Phone Unavailable Care Team Providers Care Mathematical Physicist Name Role Phone Sae Gu MD PCP Sae Allen MD Unavailable Luisa Call DO Unavailable Nikita Armijo MD Unavailable Isai Parra MD Unavailable Shameka Ashton MD Unavailable Salvador Markham MD 3 Salvador Markham MD Unavailable Encounter Details Date Type Department Care Team Description 08/29/2018 Documentation Cardiovascular Medicine Malaika Cloud, [place] [address] [address] [place] [address] Social History Tobacco Use Types Packs/Day Years Used Date Never Smoker Smokeless Tobacco: Never Used Alcohol Use Drinks/Week oz/Week Comments Yes Very Rare Sex Assigned at Date Recorded Not on file as of this encounter Progress Notes * Malaika Cloud, RN - 08/29/2018 4:23 PM CDT Pt and Ashley, pt's , called back in regards to my message about the autonomic tilt table testing scheduled for tomorrow. They stated they had left a message with Dr. Hollis (neurology) to let him know that the patient will not be here tomorrow for the tilt table test. They went to [facility] recently to consult with the head of oncology and he told them the tilt table testing was not necessary since pt already has the diagnosis he needed. I let pt and know I will forward a message to Dr. Hollis as well as Domingo who help with the autonomic testing. They were happy with this. in this encounter Plan of Treatment Not on fileas of this encounter Visit Diagnoses Not on filein this encounter
--- OUTSIDE RECORDS SUMMARY | 2018-09-19 06:42 | XMS REPORT | Encounter Summary ---
Author Author [facility] Organization [facility] Address Unknown Phone Unavailable Care Team Providers Care Tractor Trailer Truck Driver Name Role Phone Sae Gu MD PCP Sae Allen MD Unavailable Luisa Call DO Unavailable Nikita Armijo MD Unavailable Isai Parra MD Unavailable Shameka Ashton MD Unavailable Reason for Visit * Reason Comments Heme/Onc Care Encounter Details Date Type Department Care Team Description 08/08/2018 Procedure visit [facility] Angella Rincon MD Amyloidosis, unspecified Cancer Center - [facility] Exam [address] [facility] type (HCC) (Primary Dx ); [place] [address] Multiple myeloma, [address] [facility] [phone] [place] [address] unspecified (HCC) [phone] Chico Herbert, WORKERS COMPENSATION CONSULTANT-REGISTRATION SPECIALIST [address] [place] [address] [phone] Social History Tobacco Use Types Packs/Day Years Used Date Never Smoker Smokeless Tobacco: Never Used Alcohol Use Drinks/Week oz/Week Comments Yes Very Rare Sex Assigned at Date Recorded Not on file as of this encounter Last Filed Vital Signs Vital Sign Reading Time Taken Blood Pressure 126/83 08/08/2018 3:13 PM CDT Pulse 72 08/08/2018 3:13 PM CDT Temperature 36.4 C (97.6 F) 08/08/2018 3:13 PM CDT Respiratory Rate 16 08/08/2018 3:13 PM CDT Oxygen Saturation 100% 08/08/2018 3:13 PM CDT Inhaled Oxygen - - Concentration Weight 70.9 kg (156 lb 4.9 oz) 08/08/2018 3:13 PM CDT Height 176.7 cm (5' 9.57") 08/08/2018 3:13 PM CDT Body Mass Index 22.71 08/08/2018 3:13 PM CDT in this encounter Progress Notes * Lucinda Bingham, RN - 08/08/2018 3:00 PM CDT Formatting of this note may be different from the original. PROCEDURE ROOM RECORD Room: 2 Time in Room: 0 Time Out: 1521 Procedure Time Start: 152 Time Finished: 154 Pre/post op Diagnosis per Physician: 1. Amyloidosis, unspecified type (HCC) MISCELLANEOUS LAB TEST BONE MARROW ASP BONE MARROW ASP BONE MARROW BIOPSY BONE MARROW BIOPSY CHROMOSOMES BONE MARROW CHROMOSOMES BONE MARROW CHROMOSOMES FISH DNA PROBE CHROMOSOMES FISH DNA PROBE FE STAIN FE STAIN LEUKEMIA/LYMPHOMA PNL, BONE MARROW LEUKEMIA/LYMPHOMA PNL, BONE MARROW MISCELLANEOUS LAB TEST BONE MARROW ASPIRATION PROCEDURE BIOPSY BONE MARROW PROCEDURE CANCELED: MISCELLANEOUS LAB TEST 2. Multiple myeloma, remission status unspecified (HCC) BONE MARROW ASP BONE MARROW ASP BONE MARROW BIOPSY BONE MARROW BIOPSY CHROMOSOMES BONE MARROW CHROMOSOMES BONE MARROW CHROMOSOMES FISH DNA PROBE CHROMOSOMES FISH DNA PROBE FE STAIN FE STAIN LEUKEMIA/LYMPHOMA PNL, BONE MARROW LEUKEMIA/LYMPHOMA PNL, BONE MARROW BONE MARROW ASPIRATION PROCEDURE BIOPSY BONE MARROW PROCEDURE Procedure: Bone marrow biopsy and aspirate Premeds: None Anesthetic: Local Lidocaine Mode of Transportation: ambulation PLAN & IMPLEMENTATION: Give clear and concise information/explaination y Provide a caring and supportive environment y Communicate patient's concerns to other members of the Health Care Team y EVALUATION: The patient verbalized understanding of the procedure and demonstrates less anxiety: Yes Time out performed by: Aspen Kent, Madeleine Dunn APRN Consent obtained, correct patient verified, correct procedure verified, correct site verified, patient marked as necessary. Physician/Surgeon: Madeleine Dunn APRN Human Resource Officer; Beata Loya Scrub: Mission Systems Engineer: Lucinda Bingham Prep Area: Left iliac crest Prep Solution: Betadine EVALUATION: Routine Asepsis Maintained: Yes Safety Restraint: Guarded Position: Prone Skin Integrity: Pre-operative: c/d/i Post-operative: Dressing applied Specimen Sent: Yes Discharged: ambulatory Patient Instructions: Patient given written post care instructions. Pt verbalized understanding. Complications: none Patient tolerated procedure: Yes Post-procedure Condition: Stable * Chico Dunn APRN-NP - 08/08/2018 3:00 PM CDT See procedure note. in this encounter Procedure Notes * Chico Dunn APRN-NP - 08/08/2018 3:00 PM CDT Associated Order(s): BIOPSY BONE MARROW PROCEDURE Procedure(s): BIOPSY BONE MARROW PROCEDURE; BONE MARROW ASPIRATION PROCEDURE Pre-Procedure Diagnose(s): Amyloidosis, unspecified type (HCC); Multiple myeloma , remission status unspecified (HCC) Bone Marrow Procedure Note Performing Provider: Chico [...] The patient was positioned in the prone position. The left iliac crest was prepped and draped in sterile fashion with betadine and sterile drapes. 10 ml of 1% Lidocaine was used to anesthetize the skin and bone cortex. An aspirate needle was then inserted into the marrow and fluid obtained. The needle was removed and pressure applied. Next the bone marrow biopsy needle was inserted, a core biopsy was obtained and the needle removed. Pressure was held until hemostasis. Betadine cleaned from skin and bandaide applied. Samples were sent for bone marrow biopsy and aspirate, flow cytometry,FISH, cytogenetics and Congo Red stain. Complications: None. Patient tolerated procedure well. CHELSEY Loja in this encounter Plan of Treatment Not on fileas of this encounter Procedures Procedure Name Priority Date/Time Associated Diagnosis Comments LEUKEMIA/LYMPHOMA PNL, Routine 08/08/2018 Amyloidosis, unspecified Results [...] section. remission status unspecified (HCC) BONE MARROW ASPIRATION Routine 08/08/2018 Amyloidosis, unspecified Results for this PROCEDURE 3:00 PM CDT type (HCC) procedure are in the Multiple myeloma, results section. remission status unspecified (HCC) BIOPSY BONE MARROW Routine 08/08/2018 Amyloidosis, unspecified Results for this PROCEDURE 3:00 PM CDT type (HCC) procedure are in the Multiple myeloma, results section. remission status unspecified (HCC) in this encounter Results * LEUKEMIA/LYMPHOMA PNL, BONE MARROW (08/08/2018 3:43 PM) Leuk/Lymph Interpretation SEE PATHOLOGY REPORT MAIN LAB Specimen/LLM BONE MARROW MAIN LAB Specimen Bone Marrow - Bone Marrow Performing Organization Address City/[facility]/Zipcode Phone Number MAIN LAB [address] [place] [address] * FE STAIN (08/08/2018 3:43 PM) Bone Marrow FE SEE PATHOLOGY REPORT MAIN LAB Specimen Bone Marrow - Bone Marrow Performing Organization Address City/[facility]/Zipcode Phone Number MAIN LAB [address] [place] [address] * CHROMOSOMES FISH DNA PROBE (08/08/2018 3:43 PM) Chromosomes Fish DNA SEE SMUTTER FOR REPORT MAIN LAB Probe Specimen Bone Marrow Performing Organization Address City/[facility]/Zipcode Phone Number MAIN LAB [address] [place] [address] * CHROMOSOMES BONE MARROW (08/08/2018 3:43 PM) Chromosomes Bone Marrow SEE SMUTTER FOR REPORT MAIN LAB Specimen Bone Marrow Performing Organization Address [facility] Number [facility] [address] [place] [address] * BONE MARROW BIOPSY (08/08/2018 3:43 PM) Bone Marrow Bx SEE PATHOLOGY REPORT MAIN LAB Specimen Bone Marrow - Bone Marrow Performing Organization Address [facility] LAB [address] [place] [address] * BONE MARROW ASP (08/08/2018 3:43 PM) Bone Marrow Asp SEE PATHOLOGY REPORT MAIN LAB Specimen Bone Marrow - Bone Marrow Performing Organization Address [facility] Phone Number [facility] [address] [place] [address] * BIOPSY BONE MARROW PROCEDURE (08/08/2018 3:00 PM) Narrative Performed At [place] Dunn APRN-NP 08/08/20183:51 PM OTHER OUTSIDE LAB Bone Marrow [...] procedure well. CHELSEY Loja Performing Organization Address [facility]/State/Zipcode Phone Number OTHER OUTSIDE LAB in this encounter Visit Diagnoses Diagnosis Amyloidosis, unspecified type (HCC) - Primary Multiple myeloma, remission status unspecified (HCC)
--- OUTSIDE RECORDS SUMMARY | 2018-09-19 06:42 | XMS REPORT | Encounter Summary ---
Author Author [facility] Organization [facility] Address Unknown Phone Unavailable Care Team Providers Care Signal Inspector Name Role Phone Sae Gu MD PCP Sae Allen MD Unavailable Luisa Call DO Unavailable Nikita Armijo MD Unavailable Isai Parra MD Unavailable Shameka Ashton MD Unavailable Salvador Markham MD 3 Salvador Markham MD Unavailable Reason for Referral * Consult, Test & Treat (Urgent) Status Reason Specialty Diagnoses / Referred By Referred To Procedures Contact Contact New Request Specialty Cardiology Diagnoses Angella Rincon Charles B, Services Kyara wise (SHEBA) MD KAILA Ontiveros Required amyloidosis [address] (HCC) [address] [place] [id number] Phone: Fax: Reason for Visit * Reason Comments Heme/Onc Care Encounter Details Date Type Department Care Team Description 08/18/2018 Office Visit [facility] Angella Rincon MD Neuropathy (Primary Dx); [facility] [address] [place] ([place]) [place] [address] amyloidosis (HCC); [address] [phone] [place], [place] [address] type [phone] Social History Tobacco Use Types Packs/Day Years Used Date Never Smoker Smokeless Tobacco: Never Used Alcohol Use Drinks/Week oz/Week Comments Yes Very Rare Sex Assigned at Date Recorded Not on file as of this encounter Last Filed Vital Signs Vital Sign Reading Time Taken Blood Pressure 134/84 08/18/2018 12:10 PM CDT Pulse 64 08/18/2018 12:10 PM CDT Temperature 36.5 C (97.7 F) 08/18/2018 12:10 PM CDT Respiratory Rate 16 08/18/2018 12:10 PM CDT Oxygen Saturation 98% 08/18/2018 12:10 PM CDT Inhaled Oxygen - - Concentration Weight 74.6 kg (164 lb 6.4 oz) 08/18/2018 12:10 PM CDT Height 176.7 cm (5' 9.57") 08/18/2018 12:10 PM CDT Body Mass Index 23.88 08/18/2018 12:10 PM CDT in this encounter Instructions * Patient Instructions - Mary Gallego, RN - 08/18/2018 12:00 PM CDT Your Care Team: Dr Angella Matute aPRN (Nurse Practitioner) Fanny Quiroga, Clinical Nurse Coordinator Mary Gallego, Clinical Nurse Coordinator Please provide 3-5 business days advanced notice for all refill requests. Please provide 5 business days advanced notice for all paperwork requests. For Non-Urgent phone calls: [phone]- all calls left between 8 and 3:30 returned in the same business day or following morning For Urgent phone call needs: [phone]- if between 8 and 4, ask for Dr Rincon's CNCs Mary or Fanny to be paged; if after hours, ask for MD manufacturing storeperson to be paged. For Scheduling needs: [phone] For primary care needs, such as blood pressure medication management, annual screenings, diabetes management, please follow up with your primary care provider. If overseen by a local oncologist, please follow up with local oncologist for urgent needs and symptom management. Please call urgently for any fevers greater than 100.3, do not take any tylenol/ ibuprofen for fevers. Please update attached medication list and bring to next clinic appointment for review. [facility] Flexographic Press Operator: Jess [phone] (Toll-Free) or [email or web address] If you are from, [place], [place], [place], [facility], [place] or anywhere else , know you are welcome.. in this encounter Progress Notes * Angella Rincon MD - 08/18/2018 12:00 PM CDT Formatting of this note may be different from the original. Date of Service: 08/18/2018 Subjective: Reason for Visit: Heme/Onc Care Keo Whitt is a 78 y.o. 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 Pt is complaining of dizziness, neuropathy and muscle weakness and he is here to discuss the results of the Mass spect History of Present Illness Onc Timeline Diagnosis:AL Amyloidosis Date of diagnosis: 06/2018 Clinical trial: No ASCT: No Mary: No Cytogenetic/FISH: N/A HPI: 78-year-old male patient with a known history of coronary artery disease, macular degeneration, neuropathy, and new diagnosis of amyloidosis who presents to our clinic for further evaluation. Patient history dates back initially with new diagnosis of peripheral neuropathy that was thought it is secondary to statin. However because his neuropathy did not improve after discontinuing the statin patient was sent to neurology for further evaluation he had several laboratory test performed at that time which include an EMG that showed myopathic changes in the iliopsoas area, CK was 191, however other laboratory tests showed sodium of 128, total protein 4.1, albumin 2.2, calcium 8.0, JEMIMA negative, rheumatoid factor negative, vitamin B12 974, TSH 6.2, T4 1.1 , vitamin D 35, serum immunofixation did not show any paraprotein. Though because of his hypoalbuminemia and proteinuria patient was sent to construction helper at [place] who recommended a kidney biopsy that was performed on 07/07/2018 that confirmed amyloidosis based on the Congo red however the immunofluorescence microscopic was performed was negative for IgA, IgG, IgM, C1q, C3, kappa, lambda and albumin. Patient was sent to our clinic for further evaluation his main complaints was diarrhea, lightheadedness, fatigue and worsening of his neuropathy pain with lower extremity edema. 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 Light chain (AL) amyloidosis (HCC) 07/05/2018 Initial Diagnosis Amyloidosis (HCC) Review of Systems Constitutional: Positive for activity change, appetite change and fatigue. Negative for chills and fever. HENT: Negative for congestion and mouth sores. Eyes: Negative for photophobia and visual disturbance. Respiratory: Negative for apnea, cough, choking and wheezing. Cardiovascular: Positive for leg swelling. Negative for chest pain and palpitations. Gastrointestinal: Positive for diarrhea. Negative for abdominal pain, constipation, nausea and vomiting. Genitourinary: Negative for dysuria and hematuria. Musculoskeletal: Positive for arthralgias. Negative for back pain and neck pain. Skin: Negative for pallor and rash. Neurological: Positive for weakness, light-headedness and numbness. Negative for tremors and headaches. Hematological: Negative for adenopathy. Does not bruise/bleed easily. Psychiatric/Behavioral: Negative for agitation, behavioral problems and confusion. Objective: ALPRAZolam (XANAX) 0.5 mg tablet Take 0.5 mg by mouth at bedtime as needed for Anxiety. ascorbate calcium (ROSA M-C PO) Take 500 mg by mouth. Maybe a few times a week aspirin EC 81 mg tablet Take 81 mg by mouth daily. CoQ10 (Ubiquinol) 200 mg cap Take 1 capsule by mouth daily. ergocalciferol (vitamin D2) 2,000 unit tab Take 1 tablet by mouth daily. hydrocortisone (CORTEF) 10 mg tablet 2 Tabs PO QAM and 1 Tab PO QPM REPATHA SURECLICK 140 mg/mL injectable PEN Inject 140 mg to area(s) as directed every 14 days. rosuvastatin (CRESTOR) 20 mg tablet Take 20 mg by mouth daily. Vit A,C,E-Usla-Lrztmw (ICAPS AREDS) 14,320-226-200 jgby-by-wcaj cap Take 1 capsule by mouth daily. VITAMIN D 50,000 unit capsule Take 50,000 Units by mouth twice weekly. warfarin (COUMADIN) 5 mg tablet Take 5 mg by mouth daily. Vitals: 08/18/18 1210 BP: 134/84 Pulse: 64 Resp: 16 Temp: 36.5 C (97.7 F) TempSrc: Oral SpO2: 98% Weight: 74.6 kg (164 lb 6.4 oz) Height: 176.7 cm (69.57") Body mass index is 23.88 kg/m. Pain Score: Zero Past Medical History: Diagnosis Date Abnormal involuntary movement Amyloidosis (HCC) Cataract Edema Heart abnormality Macular degeneration Neuropathy Past Surgical History: Procedure Laterality Date CATARACT REMOVAL 2011 ARTERIAL BYPASS SURGRY 2013 Triple PROSTATE SURGERY 2013 TERP BACK SURGERY 2014 Family History Problem Relation Age of Onset Motor Neuron Disease Father Social History Social History Marital status: Spouse name: N/A Number of children: N/A Years of education: N/A Social History Main Topics Smoking status: Never Smoker Smokeless tobacco: Never Used Alcohol use Yes Comment: Very Rare Drug use: Yes Comment: Cannabis Sexual activity: Not on file Other Topics Concern Not on file Social History Narrative No narrative on file Pain Addressed: N/A Patient Evaluated for a Clinical Trial: No treatment clinical trial available for this patient. Eastern Cooperative Oncology Group performance status is 2, Ambulatory and capable of all selfcare but unable to carry out any work activities. Up and about more than 50% of waking hours. Physical Exam Constitutional: He is oriented to person, place, and time. He appears well- developed and well-nourished. No distress. HENT: Head: Normocephalic and atraumatic. Eyes: Pupils are equal, round, and reactive to light. EOM are normal. Neck: Normal range of motion. Neck supple. Cardiovascular: Normal rate, regular rhythm and normal heart sounds. No murmur heard. Pulmonary/Chest: Effort normal and breath sounds normal. No respiratory distress. He has no wheezes. He has no rales. Abdominal: Soft. Bowel sounds are normal. He exhibits no distension. There is no tenderness. Musculoskeletal: Normal range of motion. He exhibits edema. Neurological: He is alert and oriented to person, place, and time. Skin: Skin is warm and dry. No rash noted. No erythema. Psychiatric: He has a normal mood and affect. His behavior is normal. Vitals reviewed. CBC w/Diff Lab Results Component Value Date/Time WBC 7.0 08/08/2018 04:30 PM RBC 4.18 (L) 08/08/2018 04:30 PM HGB 13.5 08/08/2018 04:30 PM HCT 39.5 (L) 08/08/2018 04:30 PM MCV 94.4 08/08/2018 04:30 PM MCH 32.3 08/08/2018 04:30 PM MCHC 34.2 08/08/2018 04:30 PM RDW 14.0 08/08/2018 04:30 PM PLTCT 211 08/08/2018 04:30 PM MPV 9.6 08/08/2018 04:30 PM Lab Results Component Value Date/Time NEUT 78.8 05/20/2018 11:35 AM ANC 5.88 08/08/2018 04:30 PM ANC 5910 05/20/2018 11:35 AM LYMA 13.5 05/20/2018 11:35 AM ALC 1013 05/20/2018 11:35 AM CASSANDRA 6.4 05/20/2018 11:35 AM AMC 480 05/20/2018 11:35 AM EOSA 0.8 05/20/2018 11:35 AM AEC 60 05/20/2018 11:35 AM BASA 0.5 05/20/2018 11:35 AM ABC 38 05/20/2018 11:35 AM Comprehensive Metabolic Profile Lab Results Component Value Date/Time NA 126 (L) 08/08/2018 04:30 PM K 4.1 08/08/2018 04:30 PM CL 95 (L) 08/08/2018 04:30 PM CO2 31 (H) 08/08/2018 04:30 PM GAP <1 (L) 08/08/2018 04:30 PM BUN 9 08/08/2018 04:30 PM CR 0.77 08/08/2018 04:30 PM GLU 105 (H) 08/08/2018 04:30 PM GLU 92 05/20/2018 11:35 AM Lab Results Component Value Date/Time CA 7.9 (L) 08/08/2018 04:30 PM ALBUMIN 2.3 (L) 08/08/2018 04:30 PM TOTPROT 4.2 (L) 08/08/2018 04:30 PM ALKPHOS 67 08/08/2018 04:30 PM AST 21 08/08/2018 04:30 PM ALT 14 08/08/2018 04:30 PM TOTBILI 0.4 08/08/2018 04:30 PM GFR >60 08/08/2018 04:30 PM GFRAA >60 08/08/2018 04:30 PM Lab Results Component Value Date/Time Immuno Fix-Serum NO PARAPROTEIN SEEN 08/08/2018 04:30 PM [place], FLC 1.20 08/08/2018 04:30 PM Lambda, FLC 4.03 (H) 08/08/2018 04:30 PM [place]/Lambda FLC 0.30 08/08/2018 04:30 PM B2 Microglobulin 1.9 08/08/2018 04:30 PM Total Protein-SEP 4.0 (L) 08/08/2018 04:30 PM Albumin % 55.7 08/08/2018 04:30 PM Alpha 1 % 6.0 08/08/2018 04:30 PM Alpha 2 % 19.8 (H) 08/08/2018 04:30 PM Beta %,Serum 11.4 08/08/2018 04:30 PM Gamma % 7.1 (L) 08/08/2018 04:30 PM Interpretation - SEP HYPOALBUMINEMIA HYPOGAMMAGLOBULINEMIA 08/08/2018 04:30 PM Assessment and Plan: AL Amyloidosis (HCC) 78-year-old male patient with a known history [...] recommended kidney biopsy that was performed on 2017. The kidney biopsy was positive for Congo red. The immunofluorescence for IgG, IgA, IgM, lambda, kappa, C1q and albumin were all negative. BMBx showed 1% monoclonal PC and was positive for Amyloid, skeltal survey showed osteopenia. Mass spect at [facility] for the kidney biopsy showed AL Amyloidosis. I discussed in depth with the pt the need to start treatment in order to treat his AL Amyloidosis. I discussed with the pt the best option to consider CyBorD in addition to Doxycyline.The side effects of chemotherapy were discussed extensively with the patient to include the following: Nausea, vomiting, diarrhea, renal failure/dysfunction, constipation, nerve damage, mucositis, hair loss, myelosuppression causing infection or requiring blood product transfusion, allergic reaction, secondary malignancies and even . Question were answered. Consent signed and placed into chart. Recommendations: Recommend to consider starting CyBorD +Doxycyline to be administered per Dr. Franco his Oncologist Start Velcade 1.3 mg/m2 SQ on days 1,4,8 and 11 Start Cytoxan 300 mg/m2 IV or PO on days 1,8,15 and 22 Start Dexamethasone 12 mg PO on days 1,8,15 and 22 Start Doxycyline 100 mg PO BID (adjuvant treatment for his amyloidosis) Check CBC with differential, CMP weekly Check serum free light chain and SPEP monthly Check 24 hr UPEP Prior starting treatment Consider checking 24 hr UPEP After completion of 4 cycles of treatment Referral to Cardiac Oncology to evaluate for Cardiac Amyloidosis RTC in my clinic after completion of 4 cycles Neuropathy Patient had peripheral neuropathy that most likely is secondary to his amyloidosis. If his neuropathy does not improve we will consider gabapentin.Pt is following Dr. Armijo Proteinuria Patient had proteinuria most likely secondary to his renal amyloidosis, Pt is following his construction helper, will start him on treatment for his AL Amyloidosis I will send my note to pt PCP Dr. Gu, and Dr. Salvador Rincon M.D Central Sterile Technician of Internal medicine Division of Hematologic Malignancies and Cellular Therapeutics Pager [phone] * Mary Gallego, MILLIE - 08/18/2018 12:00 PM CDT Formatting of this note may be different from the original. Last Amyloidosis Labs: 08/08 Pt presentation: Mass spectometry results show AL amyloidosis, lambda type; states will see [place] on 10/03 for 2nd opinion with Dr Finn; lives in [place] , [place] Recommendations and discussion: Start Cytoxan, Velcade, Dexamethasone; collaboration with nephrology and cardiology; doxycycline BID;start acyclovir; referral to Dr Handley for cardiac management for amyloidosis Return to Clinic: 4 cycles Coordinate care and send notes to: Sae Gu III, MD PCP - General Internal Medicine ; Other Patient Care Team Members Luisa Call DO Endocrinology and Diabetes Services ; Nikita Armijo MD Neurology ; Pager: [phone]; Isai Parra MD Nephrology [place], [place]: [phone] Salvador Markham MD Hematology and Oncology ; Pager: [phone]; in this encounter Miscellaneous Notes * Patient Education - Brad Owusu, ERMIAS - 08/18/2018 12:00 PM CDT Chemotherapy Education Provided patient with written and verbal education regarding "CyBorD" ( cyclophosphamide, bortezomib, dexamethasone) chemotherapy. Discussed schedule of chemotherapy. Patient will receive treatment as follows: - bortezomib on Days 1, 8, 15, 22 - cyclophosphamide & dexamethasone by mouth on Day 1, 8, 15, 22 Discussed adverse effects of chemotherapy, including (but not limited to): myelosuppression, infection, fatigue, nausea/vomiting, diarrhea & other bowel changes, hemorrhagic cystitis, infusion reactions, and peripheral neuropathy. Discussed potential for myelosuppression and infection. Temperature will be monitored frequently during patient's hospital stay. Advised patient to avoid sources of infection. Acyclovir prophylaxis will be started with the initiation of chemotherapy. Discussed potential for nausea/vomiting. Explained that patient will receive anti-emetics prior to each dose of chemotherapy and that PRN options will be available if needed. Encouraged patient to maintain communication with health care staff if feels nauseous throughout treatment course. Encouraged patient to keep up adequate water/nutrition intake. Also discussed potential for constipation/diarrhea. Encouraged patient to maintain communication regarding any bowel changes and that interventions will be made accordingly to treat diarrhea or constipation as indicated Discussed the potential for hemorrhagic cystitis as a result of the cyclophosphamide therapy. Advised patient to call if any blood is noted in the urine or if there is any difficulty with urination. Encouraged good hydration and frequent voiding during and following the cyclophosphamide ingestion. Discussed the potential for bortezomib-induced peripheral neuropathy. Advised patient to maintain open lines of communication regarding any changes in sensation or dexterity, as well as any pain or loss of function that would interfere with day-to-day activities. Reviewed potential need for platelet and blood transfusions as counts will be low during chemotherapy and during recovery period. Cautioned patient to be careful when brushing teeth to avoid gum bleeding and that patient is at a higher risk for bruising and bleeding. While the incidence of infusion hypersensitivity reactions secondary to the chemotherapy is rare, advised patient to report immediately any swelling, burning, pain, or redness at the infusion site, any trouble breathing, or any chest pain. Patient voiced understanding about the provided information. All questions/ concerns addressed at this time. Medication handout(s) provided. 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
--- OUTSIDE RECORDS SUMMARY | 2018-09-19 06:42 | XMS REPORT | Encounter Summary ---
Author Author [facility] Organization [facility] Address Unknown Phone Unavailable Care Team Providers Care Mobile Health Vehicle Operator Name Role Phone Sae Gu MD PCP Sae Allen MD Unavailable Luisa Call DO Unavailable Nikita Armijo MD Unavailable Isai Parra MD Unavailable Shameka Ashton MD Unavailable Encounter Details Date Type Department Care Team Description 08/08/2018 Hospital [facility] Angella Rincon MD Amyloidosis, unspecified Encounter [facility] [address]st fl [address] ([facility]) [address] [place] [address] [place] [address] [phone] Social History Tobacco Use Types Packs/Day Years Used Date Never Smoker Smokeless Tobacco: Never Used Alcohol Use Drinks/Week oz/Week Comments Yes Very Rare Sex Assigned at Date Recorded Not on file as of this encounter Medications at Time of Discharge Medication Sig. Disp. Refills Start Date End Date ALPRAZolam (XANAX) 0.5 mg Take 0.5 mg by mouth at tablet bedtime as needed for Anxiety. ascorbate calcium Take 500 mg by mouth. (ROSA M-C PO) Maybe a few times a week aspirin EC 81 mg tablet Take 81 mg by mouth daily. CoQ10 (Ubiquinol) 200 mg Take 1 capsule by mouth cap daily. ergocalciferol (vitamin Take 1 tablet by mouth D2) 2,000 unit tab daily. hydrocortisone (CORTEF) 2 Tabs PO QAM and 1 Tab 08/05/2018 10 mg tablet PO QPM REPATHA SURECLICK 140 Inject 140 mg to area(s) 05/05/2018 mg/mL injectable PEN as directed every 14 days. rosuvastatin (CRESTOR) 20 Take 20 mg by mouth 07/11/2018 mg tablet daily. Vit A,C,A-Iige-Oooepv Take 1 capsule by mouth (ICAPS AREDS) daily. 14,320-226-200 hgno-uy-ippq cap VITAMIN D 50,000 unit Take 50,000 Units by 04/27/2018 capsule mouth twice weekly. as of this encounter Plan of Treatment Not on fileas of this encounter Procedures Procedure Name Priority Date/Time Associated Diagnosis Comments MISCELLANEOUS SURGICAL 08/08/2018 Amyloidosis (HCC) Results for this PATHOLOGY REFERENCE LAB 5:03 PM CDT procedure are in the TEST results section. MISCELLANEOUS SURGICAL 08/08/2018 Amyloidosis (HCC) Results for this PATHOLOGY REFERENCE LAB 5:03 PM CDT procedure are in the TEST results section. [facility] SURGICAL 08/08/2018 Amyloidosis (HCC) Results for this PATHOLOGY REFERENCE LAB 5:03 PM CDT procedure are in the TEST results section. [facility] TEST 08/08/2018 Amyloidosis (HCC) Results for this 5:03 PM CDT procedure are in the results section. in this encounter Results * MISCELLANEOUS SURGICAL PATHOLOGY REFERENCE LAB TEST (08/08/2018 5:03 PM) Test AMYLOID PROTEIN ID, MASS REFERENCE LAB SPECTROMETRY Reference Lab PERFORMED AT [facility] REFERENCE LAB LABORATORIES Results Ref Lab SEE [facility] TEST REFERENCE LAB Specimen Mail TISSUE, BLOCK, [phone] A1 REFERENCE LAB Performing Organization Address City/[facility] [place] REFERENCE LAB REFERENCE LAB See results for address. * MISCELLANEOUS SURGICAL PATHOLOGY REFERENCE LAB TEST (08/08/2018 5:03 PM) Test AMYLOID PROTEIN ID, REFERENCE LAB MICRODISSECTION, LASER CAPTURE Reference Lab PERFORMED AT [facility] REFERENCE LAB LABORATOR[facility] Results Ref Lab SEE [facility] TEST REFERENCE LAB Specimen Mail TISSUE, BLOCK, [phone] A1 REFERENCE LAB Performing Organization Address City/[facility] Phone Number RE[facility]ENCE LAB REFERENCE LAB See results for address. * MISCELLANEOUS SURGICAL PATHOLOGY REFERENCE LAB TEST (08/08/2018 5:03 PM) Test Amyloid Protein REFERENCE LAB Identification, Paraffin Reference Lab PERFORMED AT [facility] RE[facility] Results Ref Lab SEE [facility] TEST REFERENCE LAB Specimen Mail Parrafin block REFERENCE LAB Performing Organization Address [facility] [place] Phone Number REFERENCE LAB REFERENCE LAB See results for address. * [facility] TEST (08/08/2018 5:03 PM) [facility], Amyloid Protein ID, REFERENCE LAB Info Par, LC MS/MS [facility] Result SEE COMMENTS 08/17/2018 12:51 REFERENCE LAB PM Test ResultFlag UnitRefValue ------ Amyloid Protein ID, Par, LC MS/MS Interpretation Kidney, specimen for amyloid typing ([id number]; 07/07/2018): Involved by amyloidosis, AL (lambda)-type. A [...] the Department of Laboratory Medicine and Pathology, [facility] [employer] at . Report electronically signed by Shakeel Haynes M.D. Material Received A. [id number]: Kidney, karuk 1 block Disclaimer This test was developed and its performance characteristics determined by [facility] in a manner consistent with CLIA requirements. This test has not been cleared or approved by the U.S. Food and Drug Administration. Test Performed by: [address] [address] Performing Organization Address City/State/Zipcode Phone Number REFERENCE LAB REFERENCE LAB See results for address. in this encounter Visit Diagnoses Diagnosis Amyloidosis (HCC) Amyloidosis, unspecified Admitting Diagnoses Diagnosis Amyloidosis, unspecified (HCC) Amyloidosis, unspecified
--- OUTSIDE RECORDS SUMMARY | 2018-09-19 06:42 | XMS REPORT | Encounter Summary ---
Author Author [facility] Organization [facility] Address Unknown Phone Unavailable Care Team Providers Care Barrel Repairer Name Role Phone Sae Gu MD PCP Sae Allen MD Unavailable Luisa Call DO Unavailable Nikita Armijo MD Unavailable Isai Parra MD Unavailable Shameka Ashton MD Unavailable Encounter Details Date Type Department Care Team Description 08/08/2018 Hospital [facility] Angella Rincon MD Encounter [place] [address] [place] [address] [address] [phone] [place] [address] [phone] Social History Tobacco Use Types Packs/Day Years [...] by mouth 07/11/2018 mg tablet daily. Vit A,C,V-Maby-Ukpgpc Take 1 capsule by mouth (ICAPS AREDS) daily. 14,320-226-200 ytrs-ca-wlvd cap VITAMIN D 50,000 unit Take 50,000 Units by 04/27/2018 capsule mouth twice weekly. as of this encounter Plan of Treatment Not on fileas of this encounter Procedures Procedure Name Priority Date/Time Associated Diagnosis Comments BONE MARROW 08/08/2018 Results for this 5:03 PM CDT procedure are in the results section. [facility] SESAY TEST Routine 08/08/2018 Results for this 4:30 PM CDT procedure are in the results section. [facility] REFERENCE TEST Routine 08/08/2018 Amyloidosis, unspecified Results for this 4:30 PM CDT type (HCC) procedure are in the results section. FLOW CYTOMETRY 08/08/2018 Results for this 3:43 PM CDT procedure are in the results section. METASTATIC SKELETAL Routine 08/08/2018 Amyloidosis, unspecified Results for this SURVEY 3:06 PM CDT type (HCC) procedure are in the results section. in this encounter Results * BONE MARROW (08/08/2018 5:03 PM) PATHOLOGY REPORT [facility] [email or web address][email or web address] Department of Pathology and Laboratory Medicine [address] [place] [address] Surgical Pathology Office:[phone] :[phone] SURGICAL PATHOLOGY REPORT NAME: NEGRITA MOORE SURG PATH #: [id number] MR #: [id number] ALT ID #: LOCATION: [facility] DATE OF PROCEDURE: 08/08/2018 AGE:77 SEX: M [...] of Pathology and Laboratory Medicine of the [facility] ([employer]) in compliance [...] of Pathology and Laboratory Medicine of the [facility].It has not been cleared or approved by the FDA.The FDA has determined that such clearance or approval is not necessary. Performing Organization Address City/State/Zipcode Phone Number [facility] * [facility] SESAY TEST (08/08/2018 4:30 PM) [facility] PB[facility], NT Pro BNP, S REFERENCE LAB Info [place] Miscellaneous Result SEE COMMENTS 08/10/2018 11:18 REFERENCE LAB AM Test ResultFlag Unit RefValue ------ NT-Pro BNP, S 3408 Hpg/mL<=119 NT-proBNP values less than 300 pg/mL have a 99% negative predictive value for excluding acute congestive heart failure. A cutoff of 1200 pg/mL for patients with an eGFR<60 yields a diagnostic sensitivity and specificity of 89% and 72% for acute congestive heart failure.A diagnostic NT-proBNP cutoff of 1800 pg/mL has been suggested in adults over 75 years of age in the absence of renal failure. Test Performed by: [address] [address] Performing Organization Address City/[facility] Phone Number REFERENCE LAB REFERENCE LAB See results for address. * [facility] REFERENCE TEST (08/08/2018 4:30 PM) Test NT Pro B Type Natriuretic REFERENCE LAB Peptide (BNP), Serum Reference Lab PERFORMED AT [facility] REFERENCE LAB LABORATORIES Results Ref Lab SEE [facility] TEST REFERENCE LAB Specimen Mail SERUM REFERENCE LAB Performing Organization Address City/[facility] Phone Number REFERENCE LAB REFERENCE LAB See results for address. * FLOW CYTOMETRY (08/08/2018 3:43 PM) PATHOLOGY REPORT [facility] www[facility] Aric Broussard MD, Director of Flow Cytometry Laboratory Department of Pathology and Laboratory Medicine [address] [place] [address] Surgical Pathology Office:[phone] :[phone] FLOW CYTOMETRY REPORT NAME: NEGRITA MOORE SURG PATH #: [id number] MR #: [id number] SPECIMEN CLASS: BILLING #: [id number] ALT ID #:LOCATION: [facility] DATE OF PROCEDURE: 08/08/2018 AGE:77 SEX: M [...] in this report. +++Electronically Signed Out By+++ bt/08/08/2018 Interpreted by: Flaco Zhao MD 08/09/2018 ############################## ############################## ############ Lab Data: Flow Cytometry - Multiple Myeloma, Minimal Residual Disease Panel Analytic sensitivity of the lower detection limit in this assay is 0.01% Plasma Cell Associated Markers (% Positive Cells): TM87=085; PK145=901; cyKappa=5; cyLambda=93; cyK/cyL ratio=0.1 Miscellaneous Markers (% Positive Cells): CD19=5; CD20=44; CD27=35; CD28=2; CD45=93; CD56=3; CD81=69; OL118=34 Cell Viability (%):n/a Number of Cells Analyzed:1,103,218 Plasma Cells Detected:1.66 Total Number of Markers:15 Summary of Marker Combinations: 81/28/138/38/45/27/20; cyKappa/cyLambda/138/117/38/45 /56/19 This test was developed and its performance characteristics determined by the [facility] Flow Cytometry Laboratory.It has not been cleared or approved by the U.S. Food and Drug Administration (FDA).The FDA has determined that such clearance or approval is not necessary. Performing Organization Address City/State/Zipcode Phone Number [facility] RESULTS * METASTATIC SKELETAL SURVEY (08/08/2018 3:06 PM) [...] Address City/State/Zipcode Phone Number [facility] RESULTS in this encounter Visit Diagnoses Diagnosis Amyloidosis, unspecified type (HCC)
--- OUTSIDE RECORDS SUMMARY | 2018-09-19 06:42 | XMS REPORT | Encounter Summary ---
Author Author [facility] Organization [facility] Address Unknown Phone Unavailable Care Team Providers Care Label Maker Name Role Phone Sae Gu MD PCP Sae Allen MD Unavailable Luisa Call DO Unavailable Nikita Armijo MD Unavailable Isai Parra MD Unavailable Shameka Ashton MD Unavailable Salvador Markham MD 3 Salvador Markham MD Unavailable Reason for Visit * Reason Comments Follow Up Encounter Details Date Type Department Care Team Description 08/23/2018 Office Visit [facility] Nikita Armijo MD Neuropathy (Primary Dx); Physicians-Neurology [address] [place] [facility] [place] [address] amyloidosis (HCC); [address] [phone] Orthostatic [place], [place] lightheadedness [phone] Social History Tobacco Use Types Packs/Day Years Used Date Never Smoker Smokeless Tobacco: Never Used Alcohol Use Drinks/Week oz/Week Comments Yes Very Rare Sex Assigned at Date Recorded Not on file as of this encounter Last Filed Vital Signs Vital Sign Reading Time Taken Blood Pressure 126/79 08/23/2018 2:41 PM CDT Pulse 70 08/23/2018 2:41 PM CDT Temperature - - Respiratory Rate - - Oxygen Saturation - - Inhaled Oxygen - - Concentration Weight 77.5 kg (170 lb 12.8 oz) 08/23/2018 2:41 PM CDT Height 175.3 cm (5' 9") 08/23/2018 2:41 PM CDT Body Mass Index 25.22 08/23/2018 2:41 PM CDT in this encounter Progress Notes * Nikita Armijo MD - 08/23/2018 2:50 PM CDT Formatting of this note may be different from the original. Date of Service: 08/23/2018 Subjective: Keo Whitt is a 78 y.o. male with neuropathy. History of Present Illness 78 years old male with neuropathy and weakness who is here for follow-up. His EMG showed myopathic changes only in the iliopsoas but otherwise moderate neuropathy. Last time I saw him was in June 06, 2018. He follows with his primary care physician who requested a urinalysis because of edema in the legs and found out that he had proteinuria. He was referred to nephrology and had kidney biopsy which showed amyloidosis. He was seen by Dr. 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 Chemotherapy is already discussed with the patient but he is going to [facility] tomorrow for second opinion. The patient is satisfied that there is a final diagnosis to explain his symptoms. He reports no worsening since last visit. He continues to have intermittent neuropathic pain but he does not want to be on neuropathic pain medication at this point. He restricted the water he is drinking and was started on sodium replacement. He also uses compressive stockings and his lightheadedness is less frequent now. He denies any syncope or falls since last visit. He is on warfarin. He is also following with endocrinology and taking hydrocortisone. Review of Systems Constitutional: Positive for activity change and fatigue. HENT: Positive for congestion, hearing loss, sinus pressure and voice change. Eyes: Positive for photophobia, discharge, itching and visual disturbance. Respiratory: Positive for cough, chest tightness and shortness of breath. Cardiovascular: Positive for leg swelling. Gastrointestinal: Positive for constipation and diarrhea. Endocrine: Positive for cold intolerance. Genitourinary: Positive for scrotal swelling. Musculoskeletal: Positive for neck stiffness. Skin: Positive for rash. Allergic/Immunologic: Positive for immunocompromised state. Neurological: Positive for tremors, weakness, light-headedness and numbness. Psychiatric/Behavioral: Positive for sleep disturbance. All other systems reviewed and are negative. Objective: ALPRAZolam (XANAX) 0.5 mg tablet Take [...] Take 20 mg by mouth daily. Vit A,C,D-Krzf-Pgoxso (ICAPS AREDS) 14,320-226-200 ugmy-ab-phfu cap Take 1 capsule by mouth daily. VITAMIN D 50,000 unit capsule Take 50,000 Units by mouth twice weekly. warfarin (COUMADIN) 5 mg tablet Take 5 mg by mouth daily. Vitals: 08/23/18 1441 BP: 126/79 Pulse: 70 Weight: 77.5 kg (170 lb 12.8 oz) Height: 175.3 cm (69") Body mass index is 25.22 kg/m. Physical Exam General: No acute distress. HEENT: No eye discharges. distorted pupils and non-reactive (cataratc surg). Cardiac: Regular. Abdominal: Soft. Non tender to palpate. Extremities: + edema (compressive stockings in place Neurological Examination MS: Patient is alert and oriented Speech: Normal Cranial Nerves: CN III, IV and : Intact EOM CN V: Normal facial sensation CN VIII: Normal hearing CN IX and X: Symmetric palatal elevation CN XI: Normal CN XII: Tongue strength 5/5.No atrophy or fasciculations Muscular examination: Kinetic tremor Inspection: Nofasciculation Mild atrophy in the thighs R L [...] Vibration: R L Fingers >20 >20 Toes 4 sec 4 sec Proprioception: R L Fingers Normal Normal Toes dec to small move dec to small move Cerebellar: FTN: Normal HTS: Abnormal Gait: Normal casual gait. 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 The patient is going to start treatment for amyloidosis but he is going for a second opinion at [facility] tomorrow before he starts treatment. His neuropathic pain is intermittent and he is not interested in starting a medication for that at this point. I agree with considering gabapentin if needed but edema will need to be monitored His lightheadedness is regular at this point but I still recommend we get autonomic nervous system testing but without using medications (vasodilators) during the test. He can continue that measures he is using now for his lightheadedness. Medication can be added if needed but there is no need at this time. Return to clinic in 2 months or earlier if needed Total time 40 minutes. More than 50% of the total time was used for counseling. Counseled patient regarding recommended approach to his neuropathy. This note was in part completed with [email or web address], a speech recognition software. Some grammatical and stock sorter errors may have occurred. 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
--- OUTSIDE RECORDS SUMMARY | 2018-09-19 06:42 | XMS REPORT | Encounter Summary ---
Author Author [facility] Organization [facility] Address Unknown Phone Unavailable Care Team Providers Care Middle School Baseball Coach Name Role Phone Sae Gu MD PCP Sae Allen MD Unavailable Luisa Call DO Unavailable Nikita Armijo MD Unavailable Isai Parra MD Unavailable Shameka Ashton MD Unavailable Salvador Markham MD 3 Salvador Markham MD Unavailable Encounter Details Date Type Department Care Team Description 09/05/2018 Documentation [facility] Nikita Armijo MD Physicians-Neurology [address] [facility] [place] [address] [address] [facility] [phone] [place] [address] Social History Tobacco Use Types Packs/Day Years Used Date Never Smoker Smokeless Tobacco: Never Used Alcohol Use Drinks/Week oz/Week Comments Yes Very Rare Sex Assigned at Date Recorded Not on file as of this encounter Progress Notes * Anca Garcia, RN - 09/05/2018 2:21 PM CDT Received [place]'s faxed records, will give to MR to upload into system. in this encounter Plan of Treatment Not on fileas of this encounter Visit Diagnoses Not on filein this encounter
--- OUTSIDE RECORDS SUMMARY | 2018-09-19 06:42 | XMS REPORT | Encounter Summary ---
Author Author [facility] Organization [facility] Address Unknown Phone Unavailable Care Team Providers Care Business Development Professional Name Role Phone Sae Gu MD PCP Sae Allen MD Unavailable Luisa Call DO Unavailable Nikita Armijo MD Unavailable Isai Parra MD Unavailable Shameka Ashton MD Unavailable Salvador Markham MD 3 Salvador Markham MD Unavailable Encounter Details Date Type Department Care Team Description 08/29/2018 Documentation [facility] Nikita Armijo MD Physicians-Neurology [address] [facility] [place] [address] [address] [facility] [phone] [place] [address] Social History Tobacco Use Types Packs/Day Years Used Date Never Smoker Smokeless Tobacco: Never Used Alcohol Use Drinks/Week oz/Week Comments Yes Very Rare Sex Assigned at Date Recorded Not on file as of this encounter Progress Notes * Alyssa Augustin LPN - 08/29/2018 4:24 PM CDT Patient went to [facility] for evaluation, whom has confirmed diagnosis and recommended patient cancel tilt table testing, so they will not be going through with this procedure. Patient has requested [place] send records to Dr. Armijo. Confirmed f/u appt. in this encounter Plan of Treatment Not on fileas of this encounter Visit Diagnoses Not on filein this encounter
--- OUTSIDE RECORDS SUMMARY | 2018-09-19 06:42 | XMS REPORT | Encounter Summary ---
Author Author [facility] Organization [facility] Address Unknown Phone Unavailable Care Team Providers Care Drug Department Worker Name Role Phone Sae Gu MD PCP Sae Allen MD Unavailable Luisa Call DO Unavailable Nikita Armijo MD Unavailable Isai Parra MD Unavailable Shameka Ashton MD Unavailable Salvador Markham MD 3 Salvador Markham MD Unavailable Reason for Visit * Reason Comments Records Request Encounter Details Date Type Department Care Team Description 08/19/2018 Telephone [facility] Destiny Quiros Records Request [address] [place] [address] Social History Tobacco Use Types Packs/Day Years Used Date Never Smoker Smokeless Tobacco: Never Used Alcohol Use Drinks/Week oz/Week Comments Yes Very Rare Sex Assigned at Date Recorded Not on file as of this encounter Miscellaneous Notes * Telephone Encounter - Destiny Quiros - 08/19/2018 11:58 AM CDT 08/19/18 - Records have been requested per staff message below. keily ----- Message from Pinky Ruiz sent at 08/19/2018 9:33 AM CDT ----- Regarding: records request PLease request records from PCP listed I [facility] and also Dr Sae Allen at [facility] in [place] in this encounter Plan of Treatment Not on fileas of this encounter Visit Diagnoses Not on filein this encounter
--- OUTSIDE RECORDS SUMMARY | 2018-09-19 06:42 | XMS REPORT | Encounter Summary ---
Author Author [facility] Organization [facility] Address Unknown Phone Unavailable Care Team Providers Care Table Runner Name Role Phone Sae Gu MD PCP Sae Allen MD Unavailable Luisa Call DO Unavailable Nikita Armijo MD Unavailable Isai Parra MD Unavailable Shameka Ashton MD Unavailable Salvador Markham MD 3 Reason for Referral * Consult, Test & Treat (Routine) Status Reason Specialty Diagnoses / Referred By Referred To Procedures Contact Contact Closed Specialty Cardiology Diagnoses Angella Rincon Charles B, Services Ngoc Ontiveros MD MD Required myeloma, [address] remission [address] [place] [address] unspecified [place], [place] ([facility]) [phone] Phone: Fax: Scheduling Instructions Please try to cluster appointments with other hospital/[place] appointments if possible. Patient lives 3 hours away. * Consult, Test & Treat (Routine) Status Reason Specialty Diagnoses / Referred By Referred To Procedures Contact Contact New Request Specialty Diagnoses Angella Rincon Morie, MD Services Ngoc Ontiveros MD [address] Required myeloma, [address] [place], [place] remission status [address] [address] unspecified [place], [place] Phone: [facility]) [address] Phone: Encounter Details Date Type Department Care Team Description 08/16/2018 Orders Only [facility] Angella Rincon MD Multiple myeloma, [facility] Exam [address] remission [place] [address] unspecified (HCC) [address] [facility] [phone] (Primary Dx) [place] [address] [phone] Social History Tobacco Use Types Packs/Day Years Used Date Never Smoker Smokeless Tobacco: Never Used Alcohol Use Drinks/Week oz/Week Comments Yes Very Rare Sex Assigned at Date Recorded Not on file as of this encounter Plan of Treatment Name Priority Associated Diagnoses Order Schedule AMB REFERRAL TO HEMATOLOGY Routine Multiple myeloma, Ordered: 08/16/2018 remission status unspecified (HCC) AMB REFERRAL TO ADULT CARDIOLOGY Routine Multiple myeloma, Ordered: 12/2017 remission status unspecified (HCC) as of this encounter Visit Diagnoses Diagnosis Multiple myeloma, remission status unspecified (HCC) - Primary
--- OUTSIDE RECORDS SUMMARY | 2018-09-19 06:43 | XMS REPORT | Encounter Summary ---
Author Author [facility] Organization [facility] Address Unknown Phone Unavailable Care Team Providers Care Extrusion Die Coordinator Name Role Phone Sae Gu MD PCP Reason for Visit * Reason Comments Follow-up Phone Call Encounter Details Date Type Department Care Team Description 07/08/2018 Telephone Cardiovascular Medicine Fior Thomas RN Follow-up Phone Call [address] [place] [address] Social History Tobacco Use Types Packs/Day Years Used Date Never Smoker Smokeless Tobacco: Never Used Alcohol Use Drinks/Week oz/Week Comments Yes Very Rare Sex Assigned at Date Recorded Not on file as of this encounter Miscellaneous Notes * Telephone Encounter - Fior Thomas, MILLIE - 07/08/2018 9:20 AM CDT I called as requested to cell number. Had to leave VM to call back. MILLIE Fuentes ----- Message from Teri Rod sent at 07/08/2018 8:56 AM CDT ----- Regarding: patient were admitted to hospital last evening scheduled for tilt table today at 1pm [facility] Room [id number] 1 please call patient's mobile number. Thanks Ava in this encounter Plan of Treatment Not on fileas of this encounter Visit Diagnoses Not on filein this encounter
--- OUTSIDE RECORDS SUMMARY | 2018-09-19 06:43 | XMS REPORT | Encounter Summary ---
Author Author [facility] Organization [facility] Address Unknown Phone Unavailable Care Team Providers Care Discount Clerk Name Role Phone Sae Gu MD PCP Sae Allen MD Unavailable Luisa Call DO Unavailable Nikita Armijo MD Unavailable Isai Parra MD Unavailable Shameka Ashton MD Unavailable Salvador Markham MD 3 Salvador Markham MD Unavailable Encounter Details Date Type Department Care Team Description 07/08/2018 Pharmacy Visit [facility] [address] [place] [address] Social History Tobacco Use Types Packs/Day Years Used Date Never Smoker Smokeless Tobacco: Never Used Alcohol Use Drinks/Week oz/Week Comments Yes Very Rare Sex Assigned at Date Recorded Not on file as of this encounter Plan of Treatment Not on fileas of this encounter Visit Diagnoses Not on filein this encounter
--- OUTSIDE RECORDS SUMMARY | 2018-09-19 06:43 | XMS REPORT | Encounter Summary ---
Author Author [facility] Organization [facility] Address Unknown Phone Unavailable Care Team Providers Care Instructional Design Technologist Name Role Phone Sae Gu MD PCP Encounter Details Date Type Department Care Team Description 07/11/2018 Hospital [facility] Albino Terrazas DO Other proteinuria [facility]counter [facility] [address] [place] [address] [place] [address] [phone] Social History Tobacco Use Types Packs/Day Years Used Date Never Smoker Smokeless Tobacco: Never Used Alcohol Use Drinks/Week oz/Week Comments Yes Very Rare Sex Assigned at Date Recorded Not on file as of this encounter Medications at Time of Discharge Medication Sig. Disp. Refills Start Date End Date ascorbate calcium Take 500 mg by mouth. (ROSA M-C PO) Maybe a few times a week aspirin EC 81 mg tablet Take 81 mg by mouth daily. ergocalciferol (vitamin Take 1 tablet by mouth D2) 2,000 unit tab daily. REPATHA SURECLICK 140 Inject 140 mg to area(s) 05/05/2018 mg/mL injectable PEN as directed every 14 days. rosuvastatin (CRESTOR) 20 Take 20 mg by mouth 07/11/2018 mg tablet daily. Vit A,C,Z-Zvjf-Sycffe Take 1 capsule by mouth (ICAPS AREDS) daily. 14,320-226-200 zbnr-hc-kutb cap VITAMIN D 50,000 unit Take 50,000 Units by 04/27/2018 capsule mouth twice weekly. as of this encounter Plan of Treatment Name Priority Associated Diagnoses Date/Time MISCELLANEOUS SURGICAL PATHOLOGY Other proteinuria 07/11/2018 3:35 PM CDT REFERENCE LAB TEST as of this encounter Procedures Procedure Name Priority Date/Time Associated Diagnosis Comments MISC SESAY TEST 07/11/2018 Results for this 3:35 PM CDT procedure are in the results section. in this encounter Results * [facility] TEST (07/11/2018 3:35 PM) [place] Miscellaneous Test EMTO, Electron Microscopy REFERENCE LAB Info technical only [place] Miscellaneous Result SEE COMMENTS 07/15/2018 01:04 REFERENCE LAB PM Test ResultFlag UnitRefValue ------ Electron Microscopy, Technical Only Electron Microscopy Testing Performed Test Performed by: [address] [address] Performing Organization Address City/State/Zipcode Phone Number REFERENCE LAB REFERENCE LAB See results for address. in this encounter Visit Diagnoses Diagnosis Other proteinuria Admitting Diagnoses Diagnosis Other proteinuria
--- OUTSIDE RECORDS SUMMARY | 2018-09-19 06:43 | XMS REPORT | Encounter Summary ---
Author Author [facility] Organization [facility] Address Unknown Phone Unavailable Care Team Providers Care Videographer Name Role Phone Sae Gu MD PCP Sae Allen MD Unavailable Luisa Call DO Unavailable Nikita Armijo MD Unavailable Isai Parra MD Unavailable Shameka Ashton MD Unavailable Reason for Referral * Consult, Test & Treat (Routine) Status Reason Specialty Diagnoses / Referred By Referred To Procedures Contact Contact Closed Specialty Diagnoses Angella Rincon Services Weston Briceño MD Required unspecified type [address] [place] [address] Reason for Visit * Reason Comments Heme/Onc Care * Consult, Test & Treat (Routine) Status Reason Specialty Diagnoses / Referred By Referred To Procedures Contact Contact No Auth Needed Hematology / Diagnoses Mckenzie Gu [facility] On[facility] Sae Briceño III, A, MD referral Dr. BRIGHT [address] Harriet Gu [address] [place] [id number] [place], [place] [address] [address] Phone: NEW PATIENT [phone] Encounter Details Date Type Department Care Team Description 08/08/2018 Office Visit [facility] Angella Rincon MD Multiple myeloma, [facility] Exam [address] [facility] remission status Cancer Center [place], [place] unspecified (HCC) [address] [phone] (Primary Dx); [place], [place] Amyloidosis, unspecified [phone] type (HCC); Personal history of other diseases of the circulatory system ; Neuropathy; Proteinuria, unspecified type Social History Tobacco Use Types Packs/Day Years Used Date Never Smoker Smokeless Tobacco: Never Used Alcohol Use Drinks/Week oz/Week Comments Yes Very Rare Sex Assigned at Date Recorded Not on file as of this encounter Last Filed Vital Signs Vital Sign Reading Time Taken Blood Pressure 126/83 08/08/2018 1:09 PM CDT Pulse 72 08/08/2018 1:09 PM CDT Temperature 36.4 C (97.6 F) 08/08/2018 1:09 PM CDT Respiratory Rate 16 08/08/2018 1:09 PM CDT Oxygen Saturation 100% 08/08/2018 1:09 PM CDT Inhaled Oxygen - - Concentration Weight 70.9 kg (156 lb 3.2 oz) 08/08/2018 1:09 PM CDT Height 176.7 cm (5' 9.57") 08/08/2018 1:09 PM CDT Body Mass Index 22.69 08/08/2018 1:09 PM CDT in this encounter Instructions * Patient Instructions - Mary Gallego, MILLIE - 08/08/2018 1:20 PM CDT Your Care Team: Dr Angella Matute aPRN (Nurse Practitioner) Fanny Quiroga, Clinical Nurse Coordinator Mary Gallego, Clinical Nurse Coordinator Please provide 3-5 business days advanced notice for all refill requests. Please provide 5 business days advanced notice for all paperwork requests. For Non-Urgent phone calls: [phone]- all calls left between 8 and 3:30 returned in the same business day or following morning For Urgent phone call needs: [phone]- if between 8 and 4, ask for Dr Rincon's CNCs Mary or Fanny to be paged; if after hours, ask for MD internet application developer to be paged. For Scheduling needs: [phone] For primary care needs, such as blood pressure medication management, annual screenings, diabetes management, please follow up with your primary care provider. Please call urgently for any fevers greater than 100.3, do not take any tylenol/ ibuprofen for fevers. Please update attached medication list and bring to next clinic appointment for review. in this encounter Progress Notes * Angella Rincon MD - 08/08/2018 1:20 PM CDT Formatting of this note may be different from the original. Date of Service: 08/08/2018 Subjective: Reason for Visit: Heme/Onc Care Keo Whitt is a 78 y.o. 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 Pt is complaining of dizziness, neuropathy and muscle weakness History of Present Illness Onc Timeline Diagnosis: Amyloidosis Date of diagnosis: 06/2018 Clinical trial: [...] hypoalbuminemia and proteinuria patient was sent to garage worker at [place] who recommended a kidney biopsy that was performed on 07/07/2018 that confirmed amyloidosis based on the [place] red however the immunofluorescence microscopic was performed was negative for IgA, IgG, IgM, C1q, C3, kappa, lambda and albumin. Patient was sent to our clinic for further evaluation his main complaints was diarrhea, lightheadedness, fatigue and worsening of his neuropathy pain with lower extremity edema. Amyloidosis (HCC) 07/05/2018 Initial Diagnosis Amyloidosis (HCC) Review [...] Take 20 mg by mouth daily. Vit A,C,G-Epbs-Wmmzma (ICAPS AREDS) 14,320-226-200 riok-wb-ubbe cap Take 1 capsule by mouth daily. VITAMIN D 50,000 unit capsule Take 50,000 Units by mouth twice daily. Vitals: 08/08/18 1309 BP: 126/83 Pulse: 72 Resp: 16 Temp: 36.4 C (97.6 F) TempSrc: Oral SpO2: 100% Weight: 70.9 kg (156 lb 3.2 oz) Height: 176.7 cm (69.57") Body mass index is 22.69 kg/m. Pain Score: Two Pain Loc: Generalized Past Medical History: Diagnosis Date Abnormal involuntary movement Cataract Edema Heart abnormality Macular degeneration Neuropathy Past Surgical History: Procedure Laterality Date CATARACT REMOVAL 2012 ARTERIAL BYPASS SURGRY 2014 Triple PROSTATE SURGERY 2014 TERP BACK SURGERY 2015 Family History Problem Relation Age of Onset [...] Fix-Serum NO PARAPROTEIN SEEN 08/08/2018 04:30 PM [place], FLC 1.20 08/08/2018 04:30 PM Lambda, FLC 4.03 (H) 08/08/2018 04:30 PM [place]/Lambda FLC 0.30 08/08/2018 04:30 PM B2 Microglobulin 1.9 08/08/2018 04:30 PM Total Protein-SEP 4.0 (L) 08/08/2018 04:30 PM Albumin % 55.7 08/08/2018 04:30 PM Alpha 1 % 6.0 08/08/2018 04:30 PM Alpha 2 % 19.8 (H) 08/08/2018 04:30 PM Beta %,Serum 11.4 08/08/2018 04:30 PM Gamma % 7.1 (L) 08/08/2018 04:30 PM Interpretation - SEP HYPOALBUMINEMIA HYPOGAMMAGLOBULINEMIA 08/08/2018 04:30 PM Assessment and Plan: Amyloidosis (HCC) 78-year-old male patient with a [...] will send the kidney biopsy slides to [facility] spect to evaluate the type of his amyloidosis RTC in my clinic after the biopsy results are completed in order to perform further evaluation Neuropathy Patient had peripheral neuropathy that most likely is secondary to his amyloidosis. If his neuropathy does not improve we will consider gabapentin Proteinuria Patient had proteinuria most likely secondary to his renal amyloidosis, still awaiting the final results of the biopsy to confirm the type of amyloidosis in order to start him on treatment afterwards I will send my note to pt PCP Dr. Gu I spent over 60 minutes reviewing the medical records, progress notes, treatment plans, pathology report, imaging studies in order to form a plan of care for the patient Angella Rincon M.D Roofing Technician of Internal medicine Division of Hematologic Malignancies and Cellular Therapeutics Pager [phone] * Mary Gallego RN - 08/08/2018 1:20 PM CDT Formatting of this note may be different from the original. Pt presentation: New patient: Kidney Biopsy positive for amyloidosis with Dr Parra's office; reports symptoms stated with muscle weakness and neuropathy in lower extremities X 2 years; reports echo was performed with Dr Allen in [place] Recommendations and discussion: per pathology, mass spectometry was not yet run on kidney biopsy. Received patient financial waiver form and placed orders for mass spectometry at this time. Pt undergoing metastatic skeletal survey, bone marrow biopsy, and labs today. Will obtain 24 hour urine at home and return it to clinic. Return to Clinic: 08/15 Coordinate care and send notes to: Sae Gu III, MD PCP - General Internal Medicine 05/13/2018 End 05/13 ; Other Patient Care Team Members Sae Allen MD Cardiology 08/08/2018 End 08/08/18 ; Luisa Call DO Endocrinology and Diabetes Services 08/08/2018 End ; Nikita Armijo MD Neurology 08/08/2018 End 08/08/18 ; Pager: [phone]; Isai Parra MD Nephrology 08/08/2018 End 08/08/18 [facility] [phone] in this encounter Miscellaneous Notes * Assessment & Plan Note - Angella Rincon MD - 08/16/2018 10:52 PM CDT Associated Problem(s): Proteinuria Patient had proteinuria most likely secondary to his renal amyloidosis, still awaiting the final results of the biopsy to confirm the type of amyloidosis in order to start him on treatment afterwards * Assessment & Plan Note - Angella Rincon MD - 08/16/2018 10:51 PM CDT Associated Problem(s): Neuropathy Patient had peripheral neuropathy that most likely is secondary to his amyloidosis. 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) 78-year-old male patient with a known [...] will send the kidney biopsy slides to [facility] to evaluate the type of his amyloidosis RTC in my clinic after the biopsy results are completed in order to perform further evaluation in this encounter Plan of Treatment Name Priority Associated Diagnoses Order Schedule BONE MARROW ASPIRATION PROCEDURE Routine Amyloidosis, unspecified Expected: 08/08/2018, type (HCC) Expires: 08/08/2019 Multiple myeloma, remission status unspecified (HCC) IMMUNOFIXATION URINE 24 HOUR Routine Amyloidosis, unspecified Expected: 08/08/2018 type (HCC) (Approximate), Expires: 08/08/2019 ELECTROPHORESIS-UR 24 HR Routine Amyloidosis, unspecified Expected: type (HCC) (Approximate), Expires: 08/08/2019 MISCELLANEOUS LAB TEST Specimen Amyloidosis, unspecified Expected: 08/08 in Lab type (HCC) (Approximate), Expires: 08/08/2019 Name Priority Associated Diagnoses Order Schedule AMB REFERRAL TO HEMATOLOGY ONCOLOGY Routine Amyloidosis, unspecified Ordered: 08/10/2018 type (HCC) as of this encounter Procedures Procedure Name Priority Date/Time Associated Diagnosis Comments CYTOGENETICS SCAN 08/18/2018 Results for this 10:49 AM CDT procedure are in the results section. CYTOGENETICS SCAN 08/11/2018 Results for this 2:10 PM CDT procedure are in the results section. in this encounter Results * CYTOGENETICS SCAN (08/18/2018 10:49 AM) Narrative Performed At Ordered by an unspecified provider. * CYTOGENETICS SCAN (08/11/2018 2:10 PM) Narrative Performed At Ordered by an unspecified provider. * BETA 2 MICROGLOBULIN (08/08/2018 4:30 PM) B2 Microglobulin 1.9 0.8 - 2.3 MG/L [facility] Specimen Blood Performing Organization Address City/[facility] Phone Number [facility] [address] [phone] * BNP (B-TYPE NATRIURETIC PEPTI) (08/08/2018 4:30 PM) B Type Natriuretic 611.0 (H) 0 - 100 PG/ML [facility] Peptide Specimen Blood Performing Organization Address [facility] Veg[facility] Phone Number [facility] [address] [place] [address] * CBC AND DIFF (08/08/2018 4:30 PM) White Blood Cells 7.0 4.5 - 11.0 K/UL [facility] RBC 4.18 (L) 4.4 - 5.5 M/UL [facility] Hemoglobin 13.5 13.5 - 16.5 GM/DL [facility] Hematocrit 39.5 (L) 40 - 50 % [facility] MCV 94.4 80 - 100 FL [facility] MCH 32.3 26 - 34 PG [facility] MCHC 34.2 32.0 - 36.0 G/DL [facility] RDW 14.0 11 - 15 % [facility] Platelet Count 211 150 - 400 K/UL [facility] MPV 9.6 7 - 11 FL [facility] Segmented Neutrophils 84 (H) 41 - 77 % [facility] Lymphocytes 14 (L) 24 - 44 % [facility] Monocytes 2 (L) 4 - 12 % [facility] Normal RBC Morph NORMAL [facility] Platelet Estimate NORMAL [facility] Absolute Neutrophil Count 5.88 1.8 - 7.0 K/UL [facility] Manual Specimen Blood Performing Organization Address [facility] Phone Number [facility] [address] [place] [address] * COMPREHENSIVE METABOLIC PANEL (08/08/2018 4:30 PM) Sodium 126 (L) 137 - 147 MMOL/L [facility] Potassium 4.1 3.5 - 5.1 MMOL/L [facility] Chloride 95 (L) 98 - 110 MMOL/L [facility] Glucose 105 (H) 70 - 100 MG/DL [facility] Blood Urea Nitrogen 9 7 - 25 MG/DL [facility] Creatinine 0.77 0.4 - 1.24 MG/DL [facility] Calcium 7.9 (L) 8.5 - 10.6 MG/DL [facility] Total Protein 4.2 (L) 6.0 - 8.0 G/DL [facility] Total Bilirubin 0.4 0.3 - 1.2 MG/DL [facility] Albumin 2.3 (L) 3.5 - 5.0 G/DL [facility] Alk Phosphatase 67 25 - 110 U/L [facility] AST (SGOT) 21 7 - 40 U/L [facility] CO2 31 (H) 21 - 30 MMOL/L [facility] ALT (SGPT) 14 7 - 56 U/L [facility] Anion Gap <1 (L) 3 - 12 [facility] eGFR Non >60 >60 mL/min [facility] Comment: The eGFR is not validated for use in drug dosing adjustments.Continue to use estimated creatinine clearance per dosing reference text.Please contact the Clinical Pharmacist for questions. eGFR >60 >60 mL/min [facility] Comment: The eGFR is not validated for use in drug dosing adjustments.Continue to use estimated creatinine clearance per dosing reference text.Please contact the Clinical Pharmacist for questions. Specimen Blood Performing Organization Address City/[facility]/Zipcode Phone Number [facility] [address] [place] [address] * ELECTROPHORESIS-SERUM PROTEIN (08/08/2018 4:30 PM) Total Protein-SEP 4.0 (L) 6.0 - 8.0 G/DL [facility] Albumin % 55.7 48 - 68 [...] Pathologist Signature INTERPRETED BY LUCERO RANGEL M.D. [facility] By the PATH SIGNATURE ABOVE, I attest that I have personally formulated the final interpretation expressed in this report and that the above diagnosis is based upon my examination of the slides and/or other material indicated in this report. Specimen Blood Performing Organization Address [facility] Phone Number [facility] [address] [place] [address] * IMMUNOGLOBULINS-IGA,IGG,IGM (08/08/2018 4:30 PM) IgG 277 (L) 762 - 1,488 MG/DL [facility] IgA 46 (L) 70 - 390 MG/DL [facility] IgM 31 (L) 38 - 328 MG/DL [facility] Specimen Blood Performing Organization Address [facility] Phone Number [facility] [address] [place] [address] * IMMUNOFIXATION, SERUM (IFES) (08/08/2018 4:30 PM) Immuno Fix-Serum NO PARAPROTEIN SEEN [facility] Pathologist Signature INTERPRETED BY LUCERO RANGEL M.D. [facility] By the PATH SIGNATURE ABOVE, I attest that I have personally formulated the final interpretation expressed in this report and that the above diagnosis is based upon my examination of the slides and/or other material indicated in this report. Specimen Blood Performing Organization Address [facility] Phone Number [facility] [address] [place] [address] * KAPPA/LAMBDA FREE LIGHT CHAINS (08/08/2018 4:30 PM) [place], FLC 1.20 0.33 - 1.94 MG/DL [facility] Comment: Freelite results should always be interpreted in conjunction with other laboratory tests and clinical evidence.The possibility of Antigen Excess exists and can cause Immunoassays to under estimate very high concentrations of antigen. Any discordant results should be discussed with Dr. Montaño. Lambda, FLC 4.03 (H) 0.57 - 2.63 MG/DL [facility] [place]/Lambda FLC 0.30 0.26 - 1.65 [facility] Specimen Blood Performing Organization Address [facility] Phone Number [facility] [address] [place] [address] * LDH-LACTATE DEHYDROGENASE (08/08/2018 4:30 PM) Lactate Dehydrogenase 234 (H) 100 - 210 U/L [facility] Specimen Blood Performing Organization Address [facility] Phone Number [facility] [address] [place] [address] * PROTIME INR (PT) (08/08/2018 4:30 PM) INR 0.9 0.8 - 1.2 [facility] Specimen Blood Performing Organization Address [facility] Phone Number [facility] [address] [place] [address] * PTT (APTT) (08/08/2018 4:30 PM) APTT 28.9Comment: NOTE NEW 20.0 - 36.0 SEC [facility] REFERENCE RANGES Specimen Blood Performing Organization Address [facility] Phone Number [facility] [address] [place] [address] * CHROMOSOMES FISH DNA PROBE (08/08/2018 3:43 PM) Chromosomes Fish DNA SEE LEATHER STITCHER FOR REPORT [facility] Probe Specimen Bone Marrow Performing Organization Address [facility] Phone Number [facility] [address] [place] [address] * CHROMOSOMES BONE MARROW (08/08/2018 3:43 PM) Chromosomes Bone Marrow SEE LEATHER STITCHER FOR REPORT MAIN LAB Specimen Bone Marrow Performing Organization Address [facility] Phone Number [facility] [address] [place] [address] * LEUKEMIA/LYMPHOMA PNL, BONE MARROW (08/08/2018 3:43 PM) Leuk/Lymph Interpretation SEE PATHOLOGY REPORT MAIN LAB Specimen/LLM BONE MARROW [facility] Specimen Bone Marrow - Bone Marrow Performing Organization Address City/[facility]/Zipcode Phone Number MAIN LAB [address] [place] [address] * FE STAIN (08/08/2018 3:43 PM) Bone Marrow FE SEE PATHOLOGY REPORT MAIN LAB Specimen Bone Marrow - Bone Marrow Performing Organization Address City/[facility]/Zipcode Phone Number MAIN LAB [address] [place] [address] * BONE MARROW BIOPSY (08/08/2018 3:43 PM) Bone Marrow Bx SEE PATHOLOGY REPORT MAIN LAB Specimen Bone Marrow - Bone Marrow Performing Organization Address [facility]/Zipcode Phone Number MAIN LAB [address] [place] [address] * BONE MARROW ASP (08/08/2018 3:43 PM) Bone Marrow Asp SEE PATHOLOGY REPORT MAIN LAB Specimen Bone Marrow - Bone Marrow Performing Organization Address [facility] Phone Number [facility] [address] [place] [address] * METASTATIC SKELETAL SURVEY (08/08/2018 3:06 PM) [...] procedure well. CHELSEY Loja Performing Organization Address City/[facility] Phone Number OTHER OUTSIDE LAB in this encounter Visit Diagnoses Diagnosis Multiple myeloma, remission status unspecified (HCC) - Primary Amyloidosis, unspecified type (HCC) Personal history of other diseases of the circulatory system Neuropathy Mononeuritis of unspecified site Proteinuria, unspecified type
--- OUTSIDE RECORDS SUMMARY | 2018-09-19 06:43 | XMS REPORT | Encounter Summary ---
Author Author [facility] Organization [facility] Address Unknown Phone Unavailable Care Team Providers Care Tele Marketing Executive Name Role Phone Sae Gu MD PCP Sae Allen MD Unavailable Luisa Call DO Unavailable Nikita Armijo MD Unavailable Isai Parra MD Unavailable Shameka Asthon MD Unavailable Reason for Visit * Reason Comments Navigation Assessment Encounter Details Date Type Department Care Team Description 08/05/2018 Telephone [facility] Angella Rincon MD Navigation Assessment [facility] Exam [address] [address] [facility] [phone] [place] [address] [phone] Social History Tobacco Use Types Packs/Day Years Used Date Never Smoker Smokeless Tobacco: Never Used Alcohol Use Drinks/Week oz/Week Comments Yes Very Rare Sex Assigned at Date Recorded Not on file as of this encounter Miscellaneous Notes * Telephone Encounter - Malia Clarke RN - 08/05/2018 9:04 AM CDT Formatting of this note may be different from the original. Navigation Intake Assessment Document Patient Name: Keo Whitt : 1940 Insurance: Medicare/[facility] Appointment Info: Future Appointments Date Time Provider Department Center 08/08/2018 1:20 PM Angella Rincon MD [facility] Exam 08/30/2018 1:00 PM NON-IMAGING PROCEDURE SUZI BARNEY Diagnosis & Reason for Visit: Amyloidosis Physician Info: Referring Physician: Dr. Sae Gu Location of Pathology: IN HOUSE History of Present Illness: Patient is a 77 year old male with a history of heart abnormality, macular degeneration, and neuropathy. Two years ago noticed some tightening in his legs. Seen by Dr. Armijo in May of this year due to neuropathy and myopathy and possible muscle biopsy. Patient with complaints of diarrhea, light headedness, fatigue, neuropathic pain in his feet and sinus problems. Labs showing hypoalbuminemia and proteinuria. Renal biopsy done for observation, pathology came back with Amyloidosis. Comments: See notes from Neurologist and Optical Glass Inspector. Can be found in O2. in this encounter Plan of Treatment Not on fileas of this encounter Visit Diagnoses Not on filein this encounter
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
--- OUTSIDE RECORDS SUMMARY | 2018-09-19 06:43 | XMS REPORT | Encounter Summary ---
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[facility] Exam [address] type (HCC); [place] [address] Personal history of other [address] [phone] [place] [address] circulatory system [phone] Social History Tobacco Use Types Packs/Day Years Used Date Never Smoker Smokeless Tobacco: Never Used Alcohol Use Drinks/Week oz/Week Comments Yes Very Rare Sex Assigned at Date Recorded Not on file as of this encounter Plan of Treatment Not on fileas of this encounter Procedures Procedure Name Priority Date/Time Associated Diagnosis Comments [facility] TEST Routine 08/08/2018 Results for this 4:30 PM CDT procedure are in the results section. [facility] REFERENCE TEST Routine 08/08/2018 Amyloidosis, unspecified Results [...] (HCC) procedure are in the results section. CBC AND DIFF Routine 08/08/2018 Amyloidosis, unspecified [...] system results section. Amyloidosis, unspecified type (HCC) LDH-LACTATE DEHYDROGENASE Routine 08/08/2018 Amyloidosis, unspecified Results [...] results section. in this encounter Results * [facility] (08/08/2018 4:30 PM) Ref Lab Test Code [id number], Troponin T REFERENCE LAB REF LAB RESULT (MSAR) SEE NOTE REFERENCE LAB Test name Result Flag UnitsRefIntvl - Troponin-T 0.04 H ng/mL <=0.01 Performed by [employer], [address], [facility] [place] [address] [email or web address], Loi Wang MD, Lab. Director Performing Organization Address City/[facility]/Zipcode Phone Number REFERENCE LAB REFERENCE LAB See results for address. * MISC REFERENCE TEST (08/08/2018 4:30 PM) Test Troponin T REFERENCE LAB Reference Lab PERFORMED AT [facility] REFERENCE LAB LABORATORY-FOR REF RANGE SEE REPORT. Results Ref Lab SEE REF LAB RESULT REFERENCE LAB Specimen Mail SERUM REFERENCE LAB Performing Organization Address [facility]/Zipcode Phone Number REFERENCE LAB REFERENCE LAB See results for address. * BETA 2 MICROGLOBULIN (08/08/2018 4:30 PM) B2 Microglobulin 1.9 0.8 - 2.3 MG/L [facility] Specimen Blood Performing Organization Address [facility] Phone Number [facility] [address] [place] [address] * BNP (B-TYPE NATRIURETIC PEPTI) (08/08/2018 4:30 PM) B Type Natriuretic 611.0 (H) 0 - 100 PG/ML MAIN LAB Peptide Specimen Blood Performing Organization Address [facility] Phone Number [facility] [address] [place] [address] * CBC AND DIFF (08/08/2018 4:30 PM) White Blood Cells 7.0 4.5 - 11.0 K/UL [facility] RBC 4.18 (L) 4.4 - 5.5 M/UL [facility] Hemoglobin 13.5 13.5 - 16.5 GM/DL [facility] Hematocrit 39.5 (L) 40 - 50 % [facility] MCV 94.4 80 - 100 FL [facility] MCH 32.3 26 - 34 PG [facility] MCHC 34.2 32.0 - 36.0 G/DL [facility] RDW 14.0 11 - 15 % [facility] Platelet Count 211 150 - 400 K/UL [facility] MPV 9.6 7 - 11 FL [facility] Segmented Neutrophils 84 (H) 41 - 77 % [facility] Lymphocytes 14 (L) 24 - 44 % [facility] Monocytes 2 (L) 4 - 12 % [facility] Normal RBC Morph NORMAL [facility] Platelet Estimate NORMAL [facility] Absolute Neutrophil Count 5.88 1.8 - 7.0 K/UL [facility] Manual Specimen Blood Performing Organization Address City/[facility]/Zipcode Phone Number [facility] [address] [place] [address] * COMPREHENSIVE METABOLIC PANEL (08/08/2018 4:30 PM) [...] ALT (SGPT) 14 7 - 56 U/L [facility] Anion Gap <1 (L) 3 - 12 [facility] eGFR Non >60 >60 mL/min [facility] Comment: The eGFR is not validated for use in drug dosing adjustments.Continue to use estimated creatinine clearance per dosing reference text.Please contact the Clinical Pharmacist for questions. eGFR >60 >60 mL/min [facility] Comment: The eGFR is not validated for use in drug dosing adjustments.Continue to use estimated creatinine clearance per dosing reference text.Please contact the Clinical Pharmacist for questions. Specimen Blood Performing Organization Address City/[facility]/Zipcode Phone Number [facility] [address] [place] [address] * ELECTROPHORESIS-SERUM PROTEIN (08/08/2018 4:30 PM) Total [...] Pathologist Signature INTERPRETED BY LUCERO RANGEL M.D. [facility] By the PATH SIGNATURE ABOVE, I attest that I have personally formulated the final interpretation expressed in this report and that the above diagnosis is based upon my examination of the slides and/or other material indicated in this report. Specimen Blood Performing Organization Address City/[facility]/Zipcode Phone Number [facility] [address] [place] [address] * IMMUNOGLOBULINS-IGA,IGG,IGM (08/08/2018 4:30 PM) IgG 277 (L) 762 - 1,488 MG/DL [facility] IgA 46 (L) 70 - 390 MG/DL [facility] IgM 31 (L) 38 - 328 MG/DL [facility] Specimen Blood Performing Organization Address City/[facility]/Zipcode Phone Number [facility] [address] [place] [address] * IMMUNOFIXATION, SERUM (IFES) (08/08/2018 4:30 PM) Immuno Fix-Serum NO PARAPROTEIN SEEN [facility] Pathologist Signature INTERPRETED BY LUCERO RANGEL M.D. [facility] By the PATH SIGNATURE ABOVE, I attest that I have personally formulated the final interpretation expressed in this report and that the above diagnosis is based upon my examination of the slides and/or other material indicated in this report. Specimen Blood Performing Organization Address [facility]/Zipcode Phone Number [facility] [address] [place] [address] * KAPPA/LAMBDA FREE LIGHT CHAINS (08/08/2018 4:30 PM) [place], FLC 1.20 0.33 - 1.94 MG/DL [facility] Comment: Freelite results should always be interpreted in conjunction with other laboratory tests and clinical evidence.The possibility of Antigen Excess exists and can cause Immunoassays to under estimate very high concentrations of antigen. Any discordant results should be discussed with Dr. Montaño. [place], FLC 4.03 (H) 0.57 - 2.63 MG/DL MAIN LAB [place]/Lambda FLC 0.30 0.26 - 1.65 MAIN LAB Specimen Blood Performing Organization Address [facility] Phone Number MAIN LAB [address] [place] [address] * LDH-LACTATE DEHYDROGENASE (08/08/2018 4:30 PM) Lactate Dehydrogenase 234 (H) 100 - 210 U/L [facility] Specimen Blood Performing Organization Address [facility] Phone Number [facility] [address] [place] [address] * PROTIME INR (PT) (08/08/2018 4:30 PM) INR 0.9 0.8 - 1.2 MAIN LAB Specimen Blood Performing Organization Address [facility] Phone Number MAIN LAB [address] [place] [address] * PTT (APTT) (08/08/2018 4:30 PM) APTT 28.9Comment: NOTE NEW 20.0 - 36.0 SEC MAIN LAB REFERENCE RANGES Specimen Blood Performing Organization Address [facility] Phone Number [facility] [address] [place] [address] in this encounter Visit Diagnoses Diagnosis Amyloidosis, unspecified type (HCC) Personal history of other diseases of the circulatory system
--- OUTSIDE RECORDS SUMMARY | 2018-09-19 06:44 | XMS REPORT | Encounter Summary ---
Author Author [facility] Organization [facility] Address Unknown Phone Unavailable Care Team Providers Care Government Affairs Researcher Name Role Phone Sae Gu MD PCP Reason for Visit * Auth/Cert Status Reason Specialty Diagnoses / Referred By Referred To Procedures Contact Contact Diagnoses Other proteinuria P roteinuria P rocedures IR RENAL BIOPSY Encounter Details Date Type Department Care Team Description 07/07/2018 Anesthesia [facility] Alyssa Cabrera SRNA Event [facility] Radiology [address] [place] [address] Anesthesia Record Procedure Name Responsible Anesthesia Start Time Anesthesia Stop Time Anesthesiologist IR RENAL BIOPSY Alyssa Antoine MD 07/07/18 1245 07/07/18 1325 Date Time Event Comment 1227 AN Equip Check 2017 124 AN Equip Check 1245 Anes Start 1246 Out of Pre Procedure 1247 In Room 1248 An Start Data 1248 Start Supplemental O2 1259 Anesthesia Ready 1301 Proc Start 1319 An Patient Move 1320 an stop data 1325 Handoff to RN I completed my SBAR handoff to the receiving nurse. 1325 An Stop Meds Name Total midazolam (VERSED) 1 mg/mL injection 1 mg fentaNYL PF (SUBLIMAZE) injection 25 mcg propofol (DIPRIVAN) 200 mg/ 20 mL 20 mg injection (VIAL) sodium chloride 0.9 % infusion (1000 300 mL mL bag) * Name O2 N2O Inspired N2O * No blood administrations on file. Type Details Placement Removal Peripheral 07/07/18; 1036; RN; L; Forearm; 20 G; 07/07/18 1036 by Coy, 07/08/18 1248 by IV No; 1; 07/08/18; 1248 MILLIE Farr Kelly, RN in this encounter Social History Tobacco Use Types Packs/Day Years Used Date Never Smoker Smokeless Tobacco: Never Used Alcohol Use Drinks/Week oz/Week Comments Yes Very Rare Sex Assigned at Date Recorded Not on file as of this encounter OR Notes * Anesthesia Postprocedure Evaluation - Alyssa Antoine MD - 07/07/2018 2:04 PM CDT Post-Anesthesia Evaluation Name: Keo Whitt : 1940 Age: 77 y.o. Sex : male Procedure Date: 07/07/2018 Procedure: * No procedures listed * Surgeon: * No surgeons listed * Post-Anesthesia Vitals BP: 140/87 (07/07 1400) Temp: 36.4 C (97.5 F) (07/07 1325) Pulse: 58 (07/07 1400) Respirations: 13 PER MINUTE (07/07 1400) SpO2: 99 % (07/07 1400) O2 Delivery: None (Room Air) (07/07 1400) SpO2 Pulse: 58 (07/07 1400) Post Anesthesia Evaluation Note Evaluation location: Pre/Post Patient participation: recovered; patient participated in evaluation Level of consciousness: alert Pain management: adequate Hydration: normovolemia Airway patency: adequate Perioperative Events Perioperative events: no Post-op nausea and vomiting: no PONV Postoperative Status Cardiovascular status: hemodynamically stable Respiratory status: spontaneous ventilation Follow-up needed: none Perioperative Events Perioperative Event: No Emergency Case Activation: No * Anesthesia Preprocedure Evaluation - Alyssa Antoine MD - 07/07/2018 11:36 AM CDT Formatting of this note may be different from the original. Anesthesia Pre-Procedure Evaluation Name: Keo Whitt : 1940 Age: 77 y.o. Sex : male Procedure Date: 07/07/2018 Procedure: Renal biopsy Physical Assessment Vital Signs (last filed in past 24 hours): BP: 141/90 (07/07 1045) Temp: 36.5 C (97.7 F) (07/07 1044) Pulse: 63 (07/07 1045) Respirations: 10 PER MINUTE (07/07 1045) SpO2: 97 % (07/07 1045) O2 Delivery: None (Room Air) (07/07 1030) Patient History No Known Allergies Current Medications Medication Directions ascorbate calcium (ROSA M-C PO) Take 1,000 mg by mouth daily. aspirin EC 81 mg tablet Take 81 mg by mouth daily. coenzyme Q10(+) 200 mg capsule Take 400 mg by mouth daily. omega-3 fatty acids/fish oil (FISH OIL OMEGA 3-6-9 PO) Take by mouth daily. REPATHA SURECLICK 140 mg/mL injectable PEN Inject 140 mg to area(s) as directed every 14 days. Vit A,C,B-Gpsi-Kkjidx (ICAPS AREDS) 14,320-226-200 kdrn-fz-erok cap Take by mouth daily. VITAMIN D 50,000 unit capsule Take 50,000 Units by mouth twice daily. Review of Systems/Medical History Patient summary reviewed Nursing notes reviewed Pertinent labs reviewed PONV Screening: Non-smoker No history of anesthetic complications No family history of anesthetic complications Airway - negative Pulmonary chronic, dry cough Cardiovascular Recent diagnostic studies: echocardiogram and stress test 2D echo 05/2017: 1. non-dilated left ventricle showing rather severe concentric LVH 2. LVEF 65-70%. As the result of LVH and hyperdynamic contraction, there is near cavity obliteration. 3. Diastolic dysfunction, grade 1, with severe impairment of LV diastolic relaxation 4. Enlarged left atrium 5. Normal pulmonary artery pressures 6. 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 Had 6.3 second pause on event monitor on 06/28/18 - patient attempting to void while standing during event. Met with Cardiac Facility Examiner on 07/06/2018 - plan for tilt table study tomorrow, no plan for pacemaker at this time per report. Carotid doppler study 02/02/2018: Right: Mild disease of 1-39% with mild velocities. Antegrade vertebral flow. Left: Mild disease of 1-39% with mild velocities. Antegrade vertebral flow. Based on today's results, a one year follow-up is recommended if patietn remains asymptomatic. Myocardial perfusion study 08/10/2017: This study suggests no evidence of provocable myocardial ischemia. Electrographically negative Lexiscan stress test. Normal left ventricular systolic function. Moderate fixed defect in the basal inferior wall of uncertain significance. GI/Hepatic/Renal Renal disease: concern for renal disease (abnormal GFR and electrolytes), here today for renal bx. 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 Abdominal Findings: Negative Neurological Findings: Normal mental status Comments: alert & oriented, good historian Diagnostic Tests Hematology: Lab Results Component Value Date HGB 14.1 05/20/2018 HCT 41.6 05/20/2018 PLTCT 294 05/20/2018 WBC 7.5 05/20/2018 NEUT 78.8 05/20/2018 ANC 5910 05/20/2018 ALC 1013 05/20/2018 CASSANDRA 6.4 05/20/2018 AMC 480 05/20/2018 EOSA 0.8 05/20/2018 ABC 38 05/20/2018 MCV 95.6 05/20/2018 MCH 32.4 05/20/2018 MCHC 33.9 05/20/2018 MPV 11.0 05/20/2018 RDW 12.3 05/20/2018 General Chemistry: Lab Results Component Value Date NA 128 05/20/2018 K 4.5 05/20/2018 CL 93 05/20/2018 CO2 28 05/20/2018 BUN 15 05/20/2018 CR 0.74 05/20/2018 GLU 92 05/20/2018 CA 8.0 05/20/2018 ALBUMIN 2.2 05/20/2018 TOTBILI 0.3 05/20/2018 Coagulation: No results found for: PT, PTT, INR Anesthesia Plan ASA score: 3 Plan: MAC Induction method: intravenous NPO status: acceptable Consult/records acquisition requested: gluten settling tender (obtained cardiology records - noted in assessment) Informed Consent Anesthetic plan and risks discussed with patient and spouse. Use of blood products discussed with patient Blood Consent: consented Plan discussed with: anesthesiologist, SRNA and ASSISTANT BOYS TRACK COACH. in this encounter Plan of Treatment Not on fileas of this encounter Visit Diagnoses Not on filein this encounter Administered Medications Medication Order MAR Action Action Date Dose Rate Site fentaNYL citrate PF (SUBLIMAZE) Given 07/07/2018 25 mcg injection 13:01 CDT INTRA-PROCEDURE MED, Starting Elicia 07/07/18 at 1301, Until Elicia 07/07/18 at 1328, Pain Injectable, Anesthesia Intra-op midazolam (VERSED) injection Given 07/07/2018 1 mg Intravenous, INTRA-PROCEDURE MED, 12:45 CDT Starting Elicia 07/07/18 at 1245, Until Elicia 07/07/18 at 1328, Agitation Injectable, Anxiety Injectable, Anesthesia Intra-op propofol (DIPRIVAN) injection Given 07/07/2018 20 mg INTRA-PROCEDURE MED, Starting Elicia 13:01 CDT 07/07/18 at 1301, Until Elicia 07/07/18 at 1328, Anesthesia Intra-op sodium chloride 0.9 % infusion Given - New 07/07/2018 INTRA-PROCEDURE MED(CONT), Starting Elicia Bag 12:45 CDT 07/07/18 at 1245, Until Discontinued, Anesthesia Intra-op in this encounter
--- OUTSIDE RECORDS SUMMARY | 2018-09-19 06:44 | XMS REPORT | Encounter Summary ---
Author Author [facility] Organization [facility] Address Unknown Phone Unavailable Care Team Providers Care Water/Wastewater Project Manager Name Role Phone Sae Gu MD PCP Reason for Referral * Radiology Services Status Reason Specialty Diagnoses / Referred By Referred To Procedures Contact Contact No Auth Needed Radiology Diagnoses Doctor [facility] Ir Other [facility] 2nd proteinuria fl P [address] [place], [place] IR RENAL BIOPSY [address] OR RENAL BIOPSY Phone: [employer] [phone] TROCAR/NEEDLE * Radiology Services Status Reason Specialty Diagnoses / Referred By Referred To Procedures Contact Contact No Auth Needed Radiology Diagnoses Doctor [facility] Ir Other [facility] 2nd proteinuria fl P [address] [place], [place] IR RENAL BIOPSY [address] OR RENAL BIOPSY Phone: [employer] [phone] TROCAR/NEEDLE Reason for Visit * Auth/Cert Status Reason Specialty Diagnoses / Referred By Referred To Procedures Contact Contact Diagnoses Other proteinuria P roteinuria P rocedures IR RENAL BIOPSY Encounter Details Date Type Department Care Team Description 07/07/2018 Hospital Renal/Organ Transplant Sae Gu III, Proteinuria - Encounter Main [facility] 6th fl Unit 07/08/[address] [place] [address] [place], [place] [id number] Zahraa Saleh MD [address] [facility] [address] [place] [address] [phone] Ed Dunlap DO [address] [facility] [address] [place] [address] [phone] Serena Escamilla RN B arger, Stephanie, RT(R)(),LRT Juancho Saez MD [address] [place] [address] [phone] Social History Tobacco Use Types Packs/Day Years Used Date Never Smoker Smokeless Tobacco: Never Used Alcohol Use Drinks/Week oz/Week Comments Yes Very Rare Sex Assigned at Date Recorded Not on file as of this encounter Last Filed Vital Signs Vital Sign Reading Time Taken Blood Pressure 137/78 07/08/2018 8:10 AM CDT Pulse 71 07/08/2018 8:10 AM CDT Temperature 37 C (98.6 F) 07/08/2018 8:10 AM CDT Respiratory Rate - - Oxygen Saturation 96% 07/08/2018 8:10 AM CDT Inhaled Oxygen - - Concentration Weight - - Height - - Body Mass Index - - in this encounter Discharge Summaries * Ed Terrazas DO - 07/08/2018 9:17 AM CDT Formatting of this note may be different from the original. Physician Discharge Summary Name: Negrita Moore Date Of : 1940 Age: 77 years Admit date: 07/07/2018 Discharge date: 07/08/2018 Attending Physician: Ed Terrazas DO Service: [facility] N- [id number] Physician Summary completed by: Ed Terrazas DO Reason for hospitalization: Post Renal Biopsy Significant PMH: Past Medical History: Diagnosis Date Abnormal involuntary movement Cataract Edema Heart abnormality Macular degeneration Neuropathy Allergies: Patient has no known allergies. Admission Physical Exam notable for: Vital Signs: Last Filed In 24 Hours Vital Signs: 24 Hour Range BP: 142/88 (07/07 1500) Temp: 36.4 C (97.5 F) (07/07 1325) Pulse: 63 (07/07 1500) Respirations: 15 PER MINUTE (07/07 1500) SpO2: 97 % (07/07 1500) O2 Delivery: None (Room Air) (07/07 1445) SpO2 Pulse: 62 (07/07 1500) BP: (112-150)/(77-93) Temp: [36.4 C (97.5 F)-37.1 C (98.8 F)] Pulse: [58-64] Respirations: [10 PER MINUTE-17 PER MINUTE] SpO2: [94 %-99 %] O2 Delivery: None (Room Air) General: Alert, cooperative, no distress, appears stated age Head: Normocephalic, atraumatic. Eyes: Conjunctivae clear, pupils reactive Oropharynx: Moist mucus membranes. No pharyngeal erythema. No exudates. Lungs: Clear to auscultation bilaterally Heart: Regular rate and rhythm, S1, S2 normal, no murmur. Event monitor noted on left upper chest. Abdomen: Soft, non-tender. Bowel sounds normal. No masses. Extremities: Extremities normal, atraumatic, no cyanosis. Black compression socks on bilaterally, with mild edema Pulses: 2+ and symmetric, all extremities Psychiatric: Normal mood and appropriate affect. Admission Lab/Radiology studies notable for: Labs unremarkable Brief Hospital Course: The patient was admitted and the following issues were addressed during this hospitalization: (with pertinent details). 77 year old male with weakness, proximal neuropathy, proteinuria, admitted after IR renal biopsy for observation. He had no complications and was discharged the next day. He will follow-up with his Chain Sales Consultant in [place], [place] for the pathology results. Condition at Discharge: Stable Discharge Diagnoses: Hospital Problems Active Problems Proteinuria Surgical Procedures: None Significant Diagnostic Studies and Procedures: none Consults: None Patient Disposition: Home Patient instructions/medications: Activity as Tolerated It is important to keep increasing your activity level after you leave the hospital. Moving around can help prevent blood clots, lung infection (pneumonia ) and other problems. Gradually increasing the number of times you are up moving around will help you return to your normal activity level more quickly. Continue to increase the number of times you are up to the chair and walking daily to return to your normal activity level. Begin to work toward your normal activity level at discharge Lifting Restrictions Do not lift more than 10 pounds for 10 day(s). Regular Diet You have no dietary restriction. Please continue with a healthy balanced diet. Report These Signs and Symptoms Please contact your doctor if you have any of the following symptoms: temperature higher than 100 degrees F, difficulty breathing or chest pain Questions About Your Stay For questions or concerns regarding your hospital stay: - DURING BUSINESS HOURS (8:00 AM - 4:30 PM): Call [phone] and asked to be transferred to your discharge attending physician. - AFTER BUSINESS HOURS (4:30 PM - 8:00 AM, on weekends, or holidays): Call [phone] and ask the filing machine operator to page the on-call doctor for the discharge attending physician. Discharging attending physician: ED TERRAZAS [[id number]] Current Discharge Medication List CONTINUE these medications which have NOT CHANGED Details ascorbate calcium (ROSA M-C PO) Take 1,000 mg by mouth daily. PRESCRIPTION TYPE: Historical Med aspirin EC 81 mg tablet Take 81 mg by mouth daily. PRESCRIPTION TYPE: Historical Med ergocalciferol (vitamin D2) 2,000 unit tab Take 1 tablet by mouth daily. PRESCRIPTION TYPE: Historical Med REPATHA SURECLICK 140 mg/mL injectable PEN Inject 140 mg to area(s) as directed every 14 days. PRESCRIPTION TYPE: Historical Med Vit A,C,E-Udzn-Aqoutu (ICAPS AREDS) 14,320-226-200 fcrf-xk-eszn cap Take 1 capsule by mouth daily. PRESCRIPTION TYPE: Historical Med VITAMIN D 50,000 unit capsule Take 50,000 Units by mouth twice daily. PRESCRIPTION TYPE: Historical Med The following medications were removed from your list. This list includes medications discontinued this stay and those removed from your prior med list in our system coenzyme Q10(+) 200 mg capsule omega-3 fatty acids/fish oil (FISH OIL OMEGA 3-6-9 PO) Scheduled appointments: Jul 08, 2018 1:00 PM CDT NI-Autonomic Testing with Tilt with NON-IMAGING PROCEDURE [facility] Cardiology ([facility]) [facility] [facility] [address] Jul 21, 2018 9:40 AM CDT Return Patient with Nikita Armijo MD [facility] Phys[facility]-Neurology ([facility]) [facility] [address] [facility] [id number] Pending items needing follow up: Renal Biopsy Report Signed: Ed Terrazas DO 07/08/2018 cc: Primary Care Physician: Sae Gu III Verified Referring physicians: Sae Gu III* Additional provider(s): in this encounter Discharge Instructions * Patient Instructions - Theodora Matthews RN - 07/07/2018 10:43 AM CDT Interventional Radiology-Discharge Instructions Percutaneous Renal Biopsy A percutaneous renal biopsy is a procedure in which a special needle is used to remove a small piece of tissue from your kidney to examine for signs of damage and disease. The radiologist will determine whether the procedure is to be done using ultrasound or CT guidance. The procedure usually lasts less than one hour with a 4-6 hour recovery period before you are allowed to return home. POST-PROCEDURE ACTIVITY: A responsible adult must drive you home. If you receive sedation, you should not drive or operate heavy machinery or do anything that requires concentration for at least 24 hours after receiving sedation. It is recommended that a responsible adult be with you until morning. Avoid lifting more than 5 lbs. for 1 week and avoid exercises that use your abdominal muscles. Also avoid pushing, pulling or straining. POST-PROCEDURE SITE CARE: You will have a small bandage over the site. Keep this dry. You may remove it in 24 hours. You may shower in 24 hours, after removing the bandage. Do not submerge the site underwater for 1 week (no swimming/hot tub, etc.) Be sure your hands are clean when touching near the site. Do not use ointments, creams or powders on the puncture site. DIET/MEDICATIONS: You may resume your previous diet 1-2 hours after the procedure. If you receive sedation or narcotic pain medications, avoid any foods or beverages containing alcohol for at least 24 hours after the procedure. Please see the Medication Reconciliation sheet for instructions on resuming your home medications. WHEN TO CALL THE DOCTOR: Blood in your urine Exhaustion or extreme weakness Dizziness or lightheadedness Sudden or increased shortness of breath Sudden chest pain [id number] orhigher, orchills Increasing redness, tenderness, or swelling at the biopsy site Opening of or drainage or bleedingfrom the biopsy site Increasing pain, with or without activity You have severe pain not relieved by medication. Some soreness or tenderness at the site is to be expected for several days. You have persistent nausea or vomiting. You or your caregiver should call 911 for any severe symptoms such as excessive bleeding, severe dizziness, trouble breathing or loss of consciousness. For any of the above symptoms or for problems or concerns related to the procedure, call [phone] for Wednesday-Wednesday 7-5. After-hours and weekends, please call [phone] and ask for the Interventional Carpet Mechanic on-call. in this encounter Medications at Time of Discharge [...] injectable PEN as directed every 14 days. Vit A,C,G-Vibn-Ucyssf Take 1 capsule by mouth (ICAPS AREDS) daily. 14,320226-200 zloe-yv-olxd cap VITAMIN D 50,000 unit Take 50,000 Units by 04/27/2018 capsule mouth twice weekly. as of this encounter Progress Notes * Nini Puentes RN - 07/08/2018 12:55 PM CDT Negrita Moore discharged on 07/08/2018. . Discharge instructions reviewed with patient and . Valuables returned: Where Are Valuables Stored?: With pt . Home medications: . Functional assessment at discharge complete: Yes Pt verbalized understanding regarding discharge instrcutions. No further questions were asked at this time. * Ed Terrazas DO - 07/08/2018 12:51 PM CDT Patient feeling well today. No pain from biopsy site, no blood in urine, no lightheadedness or dizziness. PE- VSS, Gen-A&O, Lungs-CTA, Heart-RRR, Back- biopsy site with clean dressing, nontender, no hematoma, Ext- no edema Labs reviewed and stable A/P- 77 yo male admitted for observation after Renal Biopsy doing very well today. No clinical indication of hemorrhage after biopsy. Pathology is pending , he will follow-up with his Chain Sales Consultant in [place], [place] for this. Discharge to home today in stable condition. * Theodora Matthews RN - 07/07/2018 6:51 PM CDT This RN gave report to Unit 64 RN taking patient. This RN answered all questions and concerns. * Theodora Matthews RN - 07/07/2018 1:47 PM CDT Spoke with Dr. Shaffer regarding admitting patient post procedure. Physician will see patient in [place]. * Serena Becerril, RN - 07/07/2018 1:16 PM CDT Procedure completed after radar systems engineer held pressure for 10 minutes. Patient is awake and calm and alert. * Serena Becerril, RN - 07/07/2018 12:47 PM CDT Anesthesia staff is present and assume all responsibility for VS, sedations, meds and airway as needed. * Yordan Cespedes RN - 07/07/2018 11:13 AM CDT This RN contacted Fior, the pt's athletic instructor RN to request pt's medical record for anesthesia evaluation prior to procedure. in this encounter H&P Notes * Zahraa Casas MD - 07/07/2018 3:17 PM CDT Formatting of this note may be different from the original. Admission History and Physical Examination Name: Negrita Moore Admission Date: 07/07/2018 Assessment/Plan: Negrita Moore is a 77 y.o. male with history of neuropathy, cardiac arrhythmias, proteinuria, being admitted from following a renal biopsy Proteinuria s/p Renal Biopsy - Follows with Dr. Jas Parra at [facility] - Kidney function continues to be stable with normal creat and BUN. Hyponatremia is chronic per patient. - Last known Hb is 14.1 from May 20. Repeat 5 hours following biopsy to monitor for bleeding - Maintain BP<150/90 - Not on HTN medications at home. - Nephrology consult not obtained as patient should be able to go home tomorrow if stable - Continue to hold aspirin. Neuropathy - Follows with Neurology here - Stable per patient Sinus Pause - On an event monitor per athletic instructor at [place] - Last episode related to vagal tone - Monitor on telemetry overnight. Marijuana Use - Occasional use to alleviate fatigue DVT Px - SCDs only due to recent kidney biopsy Disposition - Full CPR - Admit to med-private on a telemetry bed. __ Primary Care Physician: Sae Gu III Verified Chief Complaint: S/P renal biopsy History of Present Illness: Negrita Moore is a 77 y.o. male with history of proteinuria, proximal myopathy, neuropathy, chronic fatigue, being admitted from following a kidney biopsy. He complains of fatigue, does not have as much energy as he did a few years ago. 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 He reports to having an increase in energy when he smokes cannabis. Denies any active complaints. No flank pain. No chest pain. No vision changes. No headache. Past Medical History: Diagnosis Date Abnormal involuntary movement Cataract Edema Heart abnormality Macular degeneration Neuropathy Past Surgical History: Procedure Laterality Date CATARACT REMOVAL 2011 ARTERIAL BYPASS SURGRY 2013 Triple PROSTATE SURGERY 2013 TERP BACK SURGERY 2015 Family history reviewed; non-contributory Social History Social History Marital status: Spouse name: N/A Number of children: N/A Years of education: N/A Social History Main Topics Smoking status: Never Smoker Smokeless tobacco: Never Used Alcohol use Yes Comment: Very Rare Drug use: Yes Comment: Cannabis Sexual activity: Not on file Other Topics Concern Not on file Social History Narrative No narrative on file Immunizations (includes history and patient reported): There is no immunization history on file for this patient. Allergies: Patient has no known allergies. Medications: Prior to Admission Medications Prescriptions Last Dose Informant Patient Reported? Taking? REPATHA SURECLICK 140 mg/mL injectable PEN Past Month Yes No Sig: Inject 140 mg to area(s) as directed every 14 days. VITAMIN D 50,000 unit capsule Past Week Yes No Sig: Take 50,000 Units by mouth twice daily. Vit A,C,M-Etbp-Evvhmk (ICAPS AREDS) 14,320-226-200 tmee-fp-cuvz cap Unknown Yes No Sig: Take by mouth daily. ascorbate calcium (ROSA M-C PO) >1 Month Yes No Sig: Take 1,000 mg by mouth daily. aspirin EC 81 mg tablet Past Week Yes No Sig: Take 81 mg by mouth daily. coenzyme Q10(+) 200 mg capsule Yes No Sig: Take 400 mg by mouth daily. omega-3 fatty acids/fish oil (FISH OIL OMEGA 3-6-9 PO) Yes No Sig: Take by mouth daily. Facility-Administered Medications: None Review of Systems: CONSTITUTIONAL: No weight loss, fever, chills. Chronic fatigue. HEENT: Eyes: No visual loss, blurred vision, double vision or yellow sclerae. Ears, Nose, Throat: No hearing loss, sneezing, congestion, runny nose or sore throat. SKIN: No rash or itching. CARDIOVASCULAR: No chest pain, chest pressure or chest discomfort. No palpitations or edema. RESPIRATORY: No shortness of breath, cough or sputum. GASTROINTESTINAL: No anorexia, nausea, vomiting or diarrhea. No abdominal pain or blood. GENITOURINARY: No dysuria, no hematuria, no hesitancy, no urgency, no nocturia. NEUROLOGICAL: No headache, dizziness, syncope, paralysis, ataxia, numbness or tingling in the extremities. No change in bowel or bladder control. MUSCULOSKELETAL: No muscle, back pain, joint pain or stiffness. HEMATOLOGIC: No anemia, bleeding or bruising. LYMPHATICS: No enlarged nodes. No history of splenectomy. PSYCHIATRIC: No history of depression or anxiety. ENDOCRINOLOGIC: No reports of sweating, cold or heat intolerance. No polyuria or polydipsia. ALLERGIES: No history of asthma, hives, eczema or rhinitis. Physical Exam: Vital Signs: Last Filed In 24 Hours Vital Signs: 24 Hour Range BP: 142/88 (07/07 1500) Temp: 36.4 C (97.5 F) (07/07 1325) Pulse: 63 (07/07 1500) Respirations: 15 PER MINUTE (07/07 1500) SpO2: 97 % (07/07 1500) O2 Delivery: None (Room Air) (07/07 1445) SpO2 Pulse: 62 (07/07 1500) BP: (112-150)/(77-93) Temp: [36.4 C (97.5 F)-37.1 C (98.8 F)] Pulse: [58-64] Respirations: [10 PER MINUTE-17 PER MINUTE] SpO2: [94 %-99 %] O2 Delivery: None (Room Air) General: Alert, cooperative, no distress, appears stated age Head: Normocephalic, atraumatic. Eyes: Conjunctivae clear, pupils reactive Oropharynx: Moist mucus membranes. No pharyngeal erythema. No exudates. Lungs: Clear to auscultation bilaterally Heart: Regular rate and rhythm, S1, S2 normal, no murmur. Event monitor noted on left upper chest. Abdomen: Soft, non-tender. Bowel sounds normal. No masses. Extremities: Extremities normal, atraumatic, no cyanosis. Black compression socks on bilaterally, with mild edema Pulses: 2+ and symmetric, all extremities Psychiatric: Normal mood and appropriate affect. Lab/Radiology/Other Diagnostic Tests: Results for NEGRITA MOORE ( ) as of 07/07/2018 18:22 05/20/2018 11:35 Hemoglobin 14.1 Hematocrit 41.6 Platelet Count 294 White Blood Cells 7.5 Neutrophils 78.8 Absolute Neutrophil Count 5910 Lymphocytes 13.5 Absolute Lymph Count 1013 Monocytes 6.4 Absolute Monocyte Count 480 Eosinophils 0.8 Absolute Eosinophil Count 60 Absolute Basophil Count 38 Basophils 0.5 RBC 4.35 MCV 95.6 MCH 32.4 MCHC 33.9 MPV 11.0 RDW 12.3 Vitamin B12 974 Sodium 128 (L) Potassium 4.5 Chloride 93 (L) CO2 28 Blood Urea Nitrogen 15 Creatinine 0.74 eGFR Non 89 eGFR 103 Glucose 92 Albumin 2.2 (L) Globulin 1.9 Albumin/Globulin Ratio 1.2 Calcium 8.0 (L) Total Bilirubin 0.3 Total Protein 4.1 (L) Hemoglobin A1C 5.0 AST (SGOT) 25 ALT (SGPT) 17 Creatine Kinase 191 Alk Phosphatase 57 T4-Free 1.1 TSH 3rd Generation 6.22 (H) Methylmalonic Acid 158 Vitamin D(25-OH)Total 35 Vitamin D2,25-OH 27 VITAMIN D3,25-OH 8 Immuno Fix-Serum SEE NOTE JEMIMA Screen NEGATIVE Rheum Factor Screen <14 Pertinent radiology reviewed. Zahraa Casas MD General Internal Medicine * Jazmyn Kidd, MSN,PAYROLL SPECIALIST - 07/07/2018 10:13 AM CDT Formatting of this note may be different from the original. Pre Procedure History and Physical/Sedation Plan Procedure Date: 07/07/2018 Planned Procedure(s): [place] kidney biopsy. Indication for exam: Proteinuria. Chief Complaint: See above. Previous Anesthetic/Sedation History: Denies adverse events r/t sedation/ anesthesia. Allergies: Patient has no known allergies. Medications: Scheduled Meds:Continuous Infusions: PRN and Respiratory Meds: Vital Signs: Last Filed Vital Signs: 24 Hour Range BP: ()/() ABP: ()/() Sedation/Medication Plan: Fentanyl and Midazolam Personal history of sedation complications: Denies adverse event. Family history of sedation complications: Denies adverse event. Medications for Reversal: Naloxone and Flumazenil Discussion/Reviews: Physician has discussed risks and alternatives of this type of sedation and above planned procedures with patient NPO Status: Acceptable Airway: airway assessment performed Mallampati II (soft palate, uvula, fauces visible) Head and Neck: no abnormalities noted Mouth: no abnormalities noted Anesthesia Classification: ASA III (A patient with a severe systemic disease that limits activity, but is not incapacitating) Status: N/A Lab/Radiology/Other Diagnostic Tests Labs: Relevant labs reviewed in g-drive from 06/15/18. 0/4 risk factors for bleeding. hgb 12.6, plt 235, INR 1.0, gfr 135 I have examined the patient, and the following changes are noted from the previous H&P performed on 06/06/18. Upon arrival to , patient gave a note from athletic instructor in [place] from 07/06 saying patient had 6 second pause when wearing cardiac surgeon 06/28. They related this to pt having full bladder. Discussed with Dr. Soler and will call athletic instructor for cardiac clearance and have anesthesia provide sedation during the case. Spoke with MILLIE Childress in [place] that got clearance for procedure from both Dr. Cantu (primary athletic instructor) and Dr. Cano ([place] athletic instructor). Spoke with Dr. Soler who is ok proceeding with anesthesia. Jazmyn Kidd, MSN,PAYROLL SPECIALIST Pager [phone] in this encounter Miscellaneous Notes * Case Mgmt DC Plan - Sisi Casas RN - 07/08/2018 12:55 PM CDT Case Management Admission Assessment NAME:Negrita Moore :1939 AGE: 77 y.o. ADMISSION DATE: 07/07/2018 DAYS ADMITTED: LOS: 0 days Todays Date: 07/08/2018 Source of Information: patient and NCM met with pt and his at bedside as he was preparing for discharge. Introduced self and NCM role. Pt lives at home with his and is independent, does not own DME. Pt's provides transportation for pt, as pt no longer drives due to macular degeneration. Pt denies history of HH or placement. Pt does not have prescription insurance, as pt's states he has never needed it. They are hoping to get this added. NCM told pt and about Shortlist to use in the meantime. No NCM needs identified. Plan: Discharge home today. Pt's to drive pt home. Plan: CM Assessment, Discharge Planning for Home Anticipated Patient Address/Phone [address] [place] [id number] (home) Emergency Contact Extended Emergency Contact Information Primary Emergency Contact: Moore,Ashley [facility] Relation: Spouse Healthcare Directive Healthcare Directive: Yes, patient has a healthcare directive Type of Healthcare Directive: Durable power of insurance defense attorney for healthcare Location of Healthcare Directive: Patient does not have it with him/her Would patient like to fill out a (a new) Healthcare Directive?: No, patient declined Psych Advance Directive (Psych unit only): No, patient does not have a Psych Advance Directive Transportation Does the patient need discharge transport arranged?: No Transportation Name, Phone and Availability #1: Pt's Ashley [phone] Does the patient use Medicaid Transportation?: No Expected Discharge Date Expected Discharge Date: 07/08/18 Living Situation Prior to Admission ? Living Arrangements Type of Residence: Home, independent Living Arrangements: Spouse/significant other Assistance needed prior to admit or anticipated on discharge: No Who provides assistance or could if needed?: Pt's Ashley Are they in good health?: Yes Can support system provide 24/ care if needed?: Yes ? Level of Function Prior level of function: Independent ? Cognitive Abilities Cognitive Abilities: Alert and Oriented, Engages in problem solving and planning , Participates in decision making, Recognizes impact of health condition on lifestyle Financial Resources ? Coverage Primary Insurance: Medicare Secondary Insurance: Commercial insurance Additional Coverage: None (Pt does not have rx coverage) ? Source of Income Source Of Income: SSI ? Financial Assistance Needed? No needs identified. Psychosocial Needs ? Mental Health Mental Health History: No ? Substance Use History ? Other N/A Current/Previous Services ? PCP Sae Gu III, , Pt last saw him about a month ago. ? Pharmacy [facility] - [place], [place] - [address] [place]do [place]ÉNDEZ [address] ? Durable Medical Equipment Durable Medical Equipment at home: None ? Home Health Receiving home health: No ? Hemodialysis or Peritoneal Dialysis Undergoing hemodialysis or peritoneal dialysis: No ? Tube/Enteral Feeds ? Infusion Receive infusions: No ? Private Duty Private duty help used: No ? Home and Community Based Services Home and community based services: No ? Darian White Darian White: N/A ? Hospice Hospice: No ? Outpatient Therapy PT: No OT: No ? Fdc Facility/Jail SNF: No NH: No ? Inpatient Rehab IPR: No ? Long-Term Acute Care Hospital LTACH: No ? Acute Hospital Stay Acute Hospital Stay: No DAVID Shah RN Nurse Manager Cardiac Cath Voalte Text Phone: [phone] Pager: [phone] * Care Plan - Nini Puentes RN - 07/08/2018 12:49 PM CDT Problem: Falls, High Risk of Goal: Absence of falls-Adult Patient Outcome: Goal Achieved Date Met: 07/08/18 Pt was absent of falls during hospital stay. Fall risk bundle was in place. * Care Coordination-Inpatient - Luh Soto MD - 07/08/2018 3:55 AM CDT Pt assigned to [facility], please page [phone] prior to 8 am on 07/08/18, then page [phone] if questions * Procedures (Immed Post or Bedside) - Nathan Soler MD - 07/07/2018 1:24 PM CDT Immediate Post Procedure Note Date: 07/07/2018 Attending Physician: Nathan Soler Procedure(s): Left renal biopsy Pre/Post Diagnosis: proteinuria Description/Findings: Core specimen Anesthesia: 1% lidocaine Time out performed: Consent obtained, correct patient verified, correct procedure verified, correct site verified, patient marked as necessary. Estimated Blood Loss: None/Negligible Specimen(s) Removed/Disposition: Yes, sent to pathology Complications: None Nathan Soler MD in this encounter Plan of Treatment Not [...] procedure are in the results section. [facility] SESAY TEST Routine 07/07/2018 Results for this 8:00 PM CDT procedure are in the results section. [facility] 07/07/2018 Other proteinuria Results [...] results section. in this encounter Results * PATHOLOGY REPORTS FROM OUTSIDE SCAN (08/25/2018 4:21 PM) Narrative Performed At Ordered by an unspecified provider. * TELEMETRY STRIPS-SCAN (07/11/2018 9:57 AM) Narrative Performed At Ordered by an unspecified provider. * MAGNESIUM (07/08/2018 5:26 AM) Magnesium 1.7 1.6 - 2.6 mg/dL [facility] Specimen Blood Performing Organization Address City/State/Zipcode Phone Number [facility] [address] [place] [address] * COMPREHENSIVE METABOLIC PANEL (07/08/2018 5:26 AM) Sodium 128 (L) 137 - 147 MMOL/L [facility] Potassium 3.8 3.5 - 5.1 MMOL/L [facility] Chloride 98 98 - 110 MMOL/L [facility] Glucose 82 70 - 100 MG/DL [facility] Blood Urea Nitrogen 10 7 - 25 MG/DL [facility] Creatinine 0.63 0.4 - 1.24 MG/DL [facility] Calcium 7.8 (L) 8.5 - 10.6 MG/DL [facility] Total Protein 3.7 (L) 6.0 - 8.0 G/DL [facility] Total Bilirubin 0.5 0.3 - 1.2 MG/DL [facility] Albumin 2.0 (L) 3.5 - 5.0 G/DL [facility] Alk Phosphatase 48 25 - 110 U/L [facility] AST (SGOT) 20 7 - 40 U/L [facility] CO2 27 21 - 30 MMOL/L [facility] ALT (SGPT) 12 7 - 56 U/L [facility] Anion Gap 3 3 - 12 [facility] eGFR Non >60 >60 mL/min [facility] Comment: The eGFR is not validated for use in drug dosing adjustments.Continue to use estimated creatinine clearance per dosing reference text.Please contact the Clinical Pharmacist for questions. eGFR >60 >60 mL/min [facility] Comment: The eGFR is not validated for use in drug dosing adjustments.Continue to use estimated creatinine clearance per dosing reference text.Please contact the Clinical Pharmacist for questions. Specimen Blood Performing Organization Address City/State/Zipcode Phone Number [facility] [address] [place] [address] * CBC (07/08/2018 5:26 AM) White Blood Cells 6.9 4.5 - 11.0 [facility] RBC 3.95 (L) 4.4 - 5.5 M/UL [facility] Hemoglobin 12.7 (L) 13.5 - 16.5 GM/DL [facility] Hematocrit 37.1 (L) 40 - 50 % [facility] MCV 94.0 80 - 100 FL [facility] MCH 32.2 26 - 34 PG [facility] MCHC 34.2 32.0 - 36.0 G/DL [facility] RDW 14.3 11 - 15 % [facility] Platelet Count 211 150 - 400 K/UL [facility] MPV 9.2 7 - 11 FL [facility] Specimen Blood Performing Organization Address City/State/Zipcode Phone Number [facility] [address] [place] [address] * [facility] TEST (07/07/2018 8:00 PM) [facility] PLA[facility], Phospholipase A2 [facility] Info Receptor AB, S [facility] Result SEE COMMENTS 07/12/2018 08:53 REFERENCE LAB AM Test Result FlagUnit RefValue ------ Phospholipase A2 Receptor AB, S Phospholipase A2 Receptor IFA, SNegative Negative ADDITIONAL INFORMATION This test was developed and its performance characteristics determined by [facility] in a manner consistent with CLIA requirements. This test has not been cleared or approved by the U.S. Food and Drug Administration. Phospholipase A2 Receptor NIMISHA,<2 RU/mL S REFERENCE VALUE - <14 RU/mL: Negative 14-19 RU/mL: Borderline >19 RU/mL: Positive Test Performed by: [address] [address] Performing Organization Address City/[facility] Phone Number [facility] REFERENCE LAB See results for address. * [facility] REFERENCE TEST (07/07/2018 8:00 PM) Test Phospholipase A2 Receptor [facility] LAB Antibodies, Serum Reference Lab PERFORMED AT [facility] Results Ref Lab SEE [facility] TEST REFERENCE LAB Specimen Mail SERUM REFERENCE LAB Performing Organization Address [facility] Phone Number [facility] RE[facility]ENCE LAB See results for address. * CBC (07/07/2018 8:00 PM) White Blood Cells 7.0 4.5 - 11.0 K/UL [facility] RBC 3.98 (L) 4.4 - 5.5 M/UL [facility] Hemoglobin 13.3 (L) 13.5 - 16.5 GM/DL [facility] Hematocrit 37.3 (L) 40 - 50 % [facility] MCV 93.7 80 - 100 FL [facility] MCH 33.4 26 - 34 PG [facility] MCHC 35.6 32.0 - 36.0 G/DL [facility] RDW 14.4 11 - 15 % [facility] Platelet Count 188 150 - 400 K/UL [facility] MPV 9.2 7 - 11 FL [facility] Specimen Blood Performing Organization Address City/[facility]/Zipcode Phone Number [facility] [address] [place] [address] * PROTIME INR (PT) (07/07/2018 8:00 PM) INR 1.0 0.8 - 1.2 [facility] Specimen Blood Performing Organization Address [facility] Phone [facility] [address] [place] [address] * SURGICAL PATHOLOGY (07/07/2018 2:03 PM) PATHOLOGY REPORT [email or web address] Department of Pathology and Laboratory Medicine [address] [place] [address] Surgical Pathology Office:[phone] :[phone] SURGICAL PATHOLOGY REPORT NAME: NEGRITA MOORE SURG PATH #: [id number] MR #: [id number] SPECIMEN CLASS: SR BILLING #: [id number] ALT ID #:LOCATION: DATE OF PROCEDURE: 07/07/2018 AGE:77 SEX: M DATE RECEIVED: 07/07/2018 : 1940TIME RECEIVED: 14:03 PHYSICIAN: JAS PARRA MD DATE OF REPORT: 07/20/2018 COPY TO:DATE OF PRINTIN07/20/2018 ############################## ############################## ############ Final Diagnosis: A, B and C. Kidney (three affiliated), core needle biopsy: Amyloidosis. Attestation: By this signature, I attest that I have personally formulated the final interpretation expressed in this report and that the above diagnosis is based upon my examination of the slides and/or other material indicated in this report. +++ +++ ksw/07/08/2018 ############################## ############################## ############ Material Received: A: [place] [facility] with Protocol B: Immunofluorescence (Mo[place])-[place] [facility] C: Electron microscopy (glutaraldehyde)-three affiliated ( mailed out to [facility] for processing) History: 77-year-old male with history [...] and its performance characteristics determined by the [facility] pathology laboratory. It has not been [...] Description: A. Received in formalin labeled "left three affiliated renal biopsy" is a 1.1 cm in length by 0.1 in diameter core of lombardo-red tissue . The specimen is submitted entirely in cassette A1. (ab) B. Received in Renan's solution labeled "left three affiliated renal biopsy-IF" is a 0.9 x 0.1 x 0.1 cm core of lombardo-red tissue. The specimen is submitted entirely for immunofluorescence studies.(ab) C. Received in saline and transferred to formalin labeled "left three affiliated renal biopsy-EM" is a 0.8 x 0.1 x 0.1 cm core of lombardo-red tissue. The specimen is submitted entirely in sent to [facility] for electron microscopy studies.(ab) ab/07/07/2018 If immunohistochemical stains and/or in situ hybridization are cited in this report, the performance characteristics were determined by the Department of Pathology and Laboratory Medicine of the [facility] ([employer]) in compliance with CLIA'88 [...] of Pathology and Laboratory Medicine of the [facility].It has not been cleared or approved by the FDA.The FDA has determined that such clearance or approval is not necessary. Performing Organization Address City/State/Zipcode Phone Number [facility] * IR RENAL BIOPSY (07/07/2018 1:06 PM) Impressions Performed At Successful ultrasound guided left kidney biopsy as described.Specimen [facility] was confirmed adequate by the cytopathologist at time of procedure. INathan M.D., the attending radiologist, was present for the procedure, personally reviewed the images, and formulated the interpretations and opinions expressed in this report. @TT Finalized by NATHAN SOLER on 07/11/2018 4:26 PM. Dictated by NATHAN SOLER on 2017 4:25 PM. Narrative Performed At Ultrasound Guided Percutaneous [place] [facility] Biopsy [facility] INDICATION:Renal failure ACETYLENE CUTTER:Nathan Soler M.D. DEVICE:18g biopsy gun through 17g needle guide [id number] gauge cores COMPLICATIONS:None immediate TECHNIQUE: The risks, [...] 07/11/2018 4:29 PM CDT Ultrasound Guided Percutaneous [place] [facility] Biopsy INDICATION: Renal failure ACETYLENE CUTTER: Nathan Soler M.D. DEVICE: 18g biopsy gun [...] RESULTS in this encounter Visit Diagnoses Diagnosis Proteinuria, unspecified type - Primary Neuropathy Mononeuritis of unspecified site Muscle weakness Muscle weakness (generalized) Orthostatic lightheadedness Dizziness and giddiness Admitting Diagnoses Diagnosis Other proteinuria Proteinuria Administered Medications Medication Order MAR Action Action Date Dose Rate Site hydrALAZINE (APRESOLINE) injection 10 mg 10 mg, Intravenous, EVERY 6 HOURS PRN, Starting Elicia 07/07/18 at 1524, Until Wed07/08/18 at 1455, Systolic Blood Pressure..., SBP >160 and/or DBP >100 in this encounter
--- OUTSIDE RECORDS SUMMARY | 2018-09-19 06:44 | XMS REPORT | Encounter Summary ---
Author Author [facility] Organization [facility] Address Unknown Phone Unavailable Care Team Providers Care Fire Apparatus Engineer Name Role Phone Sae Gu MD PCP Sae Allen MD Unavailable Luisa Call DO Unavailable Nikita Armijo MD Unavailable Isai Parra MD Unavailable Shameka Ashton MD Unavailable Salvador Markham MD 3 Salvador Markham MD Unavailable Encounter Details Date Type Department Care Team Description 06/22/2018 Pre/Post [facility] Alba Villa RN Procedure Hospital Radiology [address] [place] [address] Social History Tobacco Use Types Packs/Day Years Used Date Never Smoker Smokeless Tobacco: Never Used Alcohol Use Drinks/Week oz/Week Comments Yes Very Rare Sex Assigned at Date Recorded Not on file as of this encounter Progress Notes * Alba Villa, MILLIE - 06/22/2018 4:46 PM CDT Interventional Radiology Outpatient Scheduling Checklist 1. Procedure: Renal biopsy-[place] Pt will be admitted post procedure 2. Date of Procedure: 07/07/18 3. Arrival Time: 1000 4. Procedure Time: 1100 5. Correct Procedural Room Assignment: Pace Room 6 6. Blood Thinners Triaged and instructed per protocol: N/A 7. Order Verified: Yes 8. Patient informed regarding procedure: Yes 9. Patient instructed to have a tractor trailer moving van driver: Yes 10. Patient instructed on NPO [...]
--- OUTSIDE RECORDS SUMMARY | 2018-09-19 06:44 | XMS REPORT | Encounter Summary ---
Author Author [facility] Organization [facility] Address Unknown Phone Unavailable Care Team Providers Care Funeral Prearrangement Counselor Name Role Phone Sae Gu MD PCP Reason for Referral * Radiology Services Status Reason Specialty Diagnoses / Referred By Referred To Procedures Contact Contact No Auth Needed Radiology Diagnoses Doctor, [facility] Other Miscellaneous [facility] 2nd proteinuria fl [address] [place], [place] IR RENAL BIOPSY [address] [place] RENAL BIOPSY Phone: Vennli [phone] TROCAR/NEEDLE Encounter Details Date Type Department Care Team Description 06/22/2018 Orders Only [facility] Zach Mcghee, MILLIE Other [facility] Hospital Radiology (Primary Dx) Main [facility] [address] [place] [address] Social History Tobacco Use Types Packs/Day Years Used Date Never Smoker Smokeless Tobacco: Never Used Alcohol Use Drinks/Week oz/Week Comments Yes Very Rare Sex Assigned at Date Recorded Not on file as of this encounter Plan of Treatment Not on fileas of this encounter Results * IR RENAL BIOPSY (07/07/2018 1:06 PM) Impressions Performed At Successful ultrasound guided left kidney biopsy as described.Specimen [facility] was confirmed adequate by the cytopathologist at time of procedure. INathan M.D., the attending radiologist, was present for the procedure, personally reviewed the images, and formulated the interpretations and opinions expressed in this report. @TT Finalized by NATHAN HYATT on 07/11/2018 4:26 PM. Dictated by NATHAN HYATT on 2017 4:25 PM. Narrative Performed At Ultrasound Guided Percutaneous [place] [facility] Biopsy [facility] INDICATION:Renal failure CLEARING SUPERVISOR:Nathan Hyatt M.D. DEVICE:18g biopsy gun through 17g needle guide [id number] gauge cores COMPLICATIONS:None immediate TECHNIQUE: The risks, [...] 07/11/2018 4:29 PM CDT Ultrasound Guided Percutaneous [place] [facility] Biopsy INDICATION: Renal failure CLEARING SUPERVISOR: Nathan Hyatt M.D. DEVICE: 18g biopsy gun through 17g [...] in this report. @TT Finalized by NATHAN HYATT on 07/11/2018 4:26 PM. Dictated by NATHAN HYATT on 2017 4:25 PM. Performing Organization Address City/State/Zipcode Phone Number [facility] in this encounter Visit Diagnoses Diagnosis Other proteinuria - Primary
--- OUTSIDE RECORDS SUMMARY | 2018-09-19 06:45 | XMS REPORT | Continuity of Care Document ---
Author Author [facility] Organization [facility] Address Unknown Phone Unavailable Allergies Active Description Code Type Severity Reaction Onset Reported/Identified Relationship to Patient Clinical Status Yes No Known Drug Allergies [id number] Drug Allergy Unknown N/A 11/24/2013 Yes Qombwie-Oji-Pal Reductase Inhibitor [id number] Drug Allergy Severe POSS KIDNEY ISS 06/23/2018 Medications There is no data. Problems Date Dx Coded Attending Type Code Diagnosis Diagnosed By 11/30/2013 IRINEO BRIGHT, SALINAS Ontiveros Ot 600.00 HYPERTROPHY (BENIGN) OF PROSTATE W/O URI 04/05/2014 TIA GAO MD Ot 562.10 DIVERTICULOSIS COLON (W/O MENT OF HEMORR 04/05/2014 MURRAY BRIGHT, TIA Costello Ot V12.72 PERSONAL HISTORY OF COLONIC POLYPS 04/05/2014 MURRAY BRIGHT, TIA Costello Ot V76.51 SCREEN MAL NEOP-COLON 09/19/2014 CATALINO WILSON DO Ot 724.02 SPINAL STENOSIS, LUMBAR REG, W/OUT NEURO 09/19/2014 CATALINO WILSON DO Ot V57.1 PHYSICAL THERAPY NEC 10/19/2014 CATALINO WILSON DO Ot 724.02 10/19/2014 CATALINO WILSON DO Ot V57.1 11/08/2014 CATALINO LOO MD Ot V45.81 11/08/2014 CATALINO LOO MD Ot V57.89 11/12/2014 CATALINO LOO MD Ot V45.81 AORTOCORONARY BYPASS 11/12/2014 CATALINO LOO MD Ot V57.89 REHABILITATION PROC NEC 11/12/2014 YANNA STOVALL DO Ot 786.50 11/12/2014 YANNA STOVALL DO Ot 793.99 11/12/2014 TIA GAO MD Ot V72.84 11/12/2014 CATALINO WILSON DO Ot 724.02 11/12/2014 CATALINO WILSON DO Ot V57.1 11/12/2014 CINDA BRIGHT, CATALINO P Ot V45.81 11/12/2014 CINDA BRIGHT, CATALINO P Ot V57.89 11/12/2014 CINDA BRIGHT, CATALINO P Ot V45.81 11/12/2014 CINDA BRIGHT, CATALINO P Ot V57.89 11/19/2014 CINDA BRIGHT, CATALINO P Ot V45.81 11/19/2014 CINDA BRIGHT, CATALINO P Ot V57.89 11/19/2014 CINDA BRIGHT, CATALINO P Ot V45.81 11/19/2014 CINDA BRIGHT, CATALINO P Ot V57.89 11/19/2014 CINDA BRIGHT, CATALINO P Ot V45.81 11/19/2014 CINDA BRIGHT, CATALINO P Ot V57.89 11/19/2014 CINDA BRIGHT, CATALINO P Ot V45.81 11/19/2014 CINDA BRIGHT, CATALINO P Ot V57.89 11/19/2014 CNIDA BRIGHT, CATALINO P Ot V45.81 11/19/2014 CINDA BRIGHT, CATALINO P Ot V57.89 11/19/2014 CATALINO WILSON DO Ot 724.02 11/19/2014 CATALINO WILSON DO Ot V57.1 11/19/2014 CINDA BRIGHT, CATALINO P Ot V45.81 11/19/2014 CINDA BRIGHT, CATALINO P Ot V57.89 11/20/2014 CINDA BRIGHT, CATALINO P Ot V45.81 11/20/2014 CINDA BRIGHT, CATALINO P Ot V57.89 11/21/2014 CATALINO WILSON DO Ot 724.02 SPINAL STENOSIS, LUMBAR REG, W/OUT NEURO 11/21/2014 CATALINO WILSON DO Ot V57.1 PHYSICAL THERAPY NEC 11/22/2014 CINDA BRIGHT, CATALINO P Ot V45.81 11/22/2014 CINDA BRIGHT, CATALINO P Ot V57.89 11/26/2014 CINDA BRIGHT, CATALINO Escobar Ot V45.81 AORTOCORONARY BYPASS 11/26/2014 CINDA BRIGHT, CATALINO Escobar Ot V57.89 REHABILITATION PROC NEC 01/09/2015 YANNA STOVALL DO Ot 786.50 01/09/2015 [...] MD Ot I25.10 ATHSCL HEART DISEASE OF [place] CORONARY 06/20/2017 CARLOS EDUARDO LAGUERRE MD Ot R42 DIZZINESS AND GIDDINESS 06/20/2017 CARLOS EDUARDO LAGUERRE MD Ot 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 06/20/2017 CARLOS EDUARDO [...] MD Ot I25.10 ATHSCL HEART DISEASE OF [place] CORONARY 06/21/2017 CARLOS EDUARDO LAGUERRE MD Ot R42 DIZZINESS AND GIDDINESS 06/21/2017 CARLOS EDUARDO LAGUERRE MD Ot Z79.82 SENIOR LIVING (CURRENT) USE OF ASPIRIN 06/21/2017 CARLOS EDUARDO LAGUERRE MD Ot 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( 06/21/2017 CARLOS EDUARDO LAGUERRE MD Ot Z95.1 PRESENCE OF AORTOCORONARY BYPASS GRAFT 05/13/2018 SARAH LIMON DO Ot E78.00 PURE HYPERCHOLESTEROLEMIA, UNSPECIFIED 05/13/2018 SARAH LIMON DO Ot I10 ESSENTIAL (PRIMARY) HYPERTENSION 05/13/2018 DELMAN DO, SARAH B Ot I25.10 ATHSCL HEART DISEASE OF [place] CORONARY 05/13/2018 DELMAN DO, SARAH B Ot 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 05/13/2018 DELMAN DO, SARAH B Ot K22.2 ESOPHAGEAL OBSTRUCTION 05/13/2018 DELMAN DO, SARAH B Ot R09.02 HYPOXEMIA 05/13/2018 DELMAN DO, SARAH B Ot T18.128A FOOD IN ESOPHAGUS CAUSING OTHER INJURY, 05/13/2018 ASHLY DO, SARAH B Ot Z79.82 SENIOR LIVING (CURRENT) USE OF ASPIRIN 05/13/2018 DELMAN DO, SARAH B Ot Z95.1 PRESENCE OF AORTOCORONARY BYPASS GRAFT 05/17/2018 DELMAN DO, SARAH B Ot E78.00 PURE HYPERCHOLESTEROLEMIA, UNSPECIFIED 05/17/2018 DELMAN DO, SARAH B Ot I10 ESSENTIAL (PRIMARY) HYPERTENSION 05/17/2018 DELMAN DO, SARAH B Ot I25.10 ATHSCL HEART DISEASE OF [place] CORONARY 05/17/2018 DELMAN DO, SARAH B Ot 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 05/17/2018 DELMAN DO, SARAH B Ot K22.2 ESOPHAGEAL OBSTRUCTION 05/17/2018 DELMAN DO, SARAH B Ot R09.02 HYPOXEMIA 05/17/2018 DELMAN DO, SARAH B Ot T18.128A FOOD IN ESOPHAGUS CAUSING OTHER INJURY, 05/17/2018 ASHLY DO, SARAH B Ot Z79.82 SENIOR LIVING (CURRENT) USE OF ASPIRIN 05/17/2018 DELKIKA DO, SARAH B Ot Z95.1 PRESENCE OF AORTOCORONARY BYPASS GRAFT 05/17/2018 DELMAN DO, SARAH B Ot E78.00 PURE HYPERCHOLESTEROLEMIA, UNSPECIFIED 05/17/2018 DELMAN DO, SARAH B Ot I10 ESSENTIAL (PRIMARY) HYPERTENSION 05/17/2018 DELMAN DO, SARAH B Ot I25.10 ATHSCL HEART DISEASE OF [place] CORONARY 05/17/2018 DELMAN DO, SARAH B Ot 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 05/17/2018 DELMAN DO, SARAH B Ot K22.2 ESOPHAGEAL OBSTRUCTION 05/17/2018 DELMAN DO, SARAH B Ot R09.02 HYPOXEMIA 05/17/2018 DELMAN DO, SARAH B Ot T18.128A FOOD IN ESOPHAGUS CAUSING OTHER INJURY, 05/17/2018 SARAH LIMON DO Ot Z79.82 SENIOR LIVING (CURRENT) USE OF ASPIRIN 05/17/2018 SARAH LIMON DO Ot Z95.1 PRESENCE OF AORTOCORONARY BYPASS GRAFT 06/22/2018 Ot E16.2 HYPOGLYCEMIA , UNSPECIFIED 06/22/2018 Ot E78.00 PURE HYPERCHOLESTEROLEMIA, UNSPECIFIED 06/22/2018 Ot F12.10 CANNABIS ABUSE, UNCOMPLICATED 06/22/2018 Ot I10 ESSENTIAL ( PRIMARY) HYPERTENSION 06/22/2018 Ot I25.10 ATHSCL HEART DISEASE OF [place] CORONARY 06/22/2018 Ot R41.82 ALTERED MENTAL STATUS, UNSPECIFIED 06/22/2018 Ot Z79.82 SENIOR LIVING ( CURRENT) USE OF ASPIRIN 06/22/2018 Ot Z82.49 FAMILY HX OF ISCHEM HEART DIS AND OTH DI 06/22/2018 Ot Z87.19 PERSONAL HISTORY OF OTHER DISEASES OF TH 06/22/2018 Ot 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( 06/22/2018 Ot Z95.1 PRESENCE OF AORTOCORONARY BYPASS GRAFT 06/23/2018 Ot 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 06/23/2018 Ot Z01.818 ENCOUNTER FOR OTHER PREPROCEDURAL EXAMIN 06/29/2018 SARAH LIMON DO Ot E46 UNSPECIFIED PROTEIN-CALORIE MALNUTRITION 06/29/2018 SARAH LIMON DO Ot E78.5 HYPERLIPIDEMIA, UNSPECIFIED 06/29/2018 SARAH LIMON DO Ot F17.210 NICOTINE DEPENDENCE, CIGARETTES, UNCOMPL 06/29/2018 SARAH LIMON DO Ot I10 ESSENTIAL (PRIMARY) HYPERTENSION 06/29/2018 SARAH LIMON DO Ot I25.10 ATHSCL HEART DISEASE OF [place] CORONARY 06/29/2018 SARAH LIMON DO Ot 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 06/29/2018 SARAH LIMON DO Ot K22.8 OTHER SPECIFIED DISEASES OF ESOPHAGUS 06/29/2018 SARAH LIMON DO Ot Z09 ENCNTR FOR F/U EXAM AFT TRTMT FOR COND O 06/29/2018 SARAH LIMON DO Ot Z79.82 SENIOR LIVING (CURRENT) USE OF ASPIRIN 06/29/2018 SARAH LIMON DO Ot Z95.1 PRESENCE OF AORTOCORONARY BYPASS GRAFT 06/29/2018 SARAH LIMON DO B Ot Z98.0 INTESTINAL BYPASS AND ANASTOMOSIS STATUS 07/01/2018 SARAH LIMON DO B Ot E46 UNSPECIFIED PROTEIN-[place] MALNUTRITION 07/01/2018 ISH LIMON DOIC B Ot E78.5 HYPERLIPIDEMIA, UNSPECIFIED 07/01/2018 ASHLY FUENTES, SARAH B Ot F17.210 NICOTINE DEPENDENCE, CIGARETTES, UNCOMPL 07/01/2018 ISH LIMON DOIC B Ot I10 ESSENTIAL (PRIMARY) HYPERTENSION 07/01/2018 ISH LIMON DOIC B Ot I25.10 ATHSCL HEART DISEASE OF [place] CORONARY 07/01/2018 ISH LIMON DOIC B Ot 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 07/01/2018 ISH LIMON DOIC B Ot Z79.82 SENIOR LIVING (CURRENT) USE OF ASPIRIN 07/01/2018 ISH LIMON DOIC B Ot Z95.1 PRESENCE OF AORTOCORONARY BYPASS GRAFT 07/08/2018 ISH LIMON DOIC B Ot E46 UNSPECIFIED PROTEIN-[place]OR[place] MALNUTRITION 07/08/2018 ISH LIMON DOIC B Ot E78.5 HYPERLIPIDEMIA, UNSPECIFIED 07/08/2018 ISH LIMON DOIC B Ot F17.210 NICOTINE DEPENDENCE, CIGARETTES, UNCOMPL 07/08/2018 ISH LIMON DOIC B Ot I10 ESSENTIAL (PRIMARY) HYPERTENSION 07/08/2018 ISH LIMON DOIC B Ot I25.10 ATHSCL HEART DISEASE OF [place] CORONARY 07/08/2018 ISH LIMON DOIC B Ot 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 07/08/2018 ISH LIMON DOIC B Ot K22.8 OTHER SPECIFIED DISEASES OF ESOPHAGUS 07/08/2018 ASHLY FUENTES SARAH B Ot Z09 ENCNTR FOR F/U EXAM AFT TRTMT FOR COND O 07/08/2018 ISH LIMON DOIC B Ot 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 07/08/2018 ASHLY FUENTES SARAH B Ot Z95.1 PRESENCE OF AORTOCORONARY BYPASS GRAFT 07/08/2018 ISH LIMON DOIC B Ot Z98.0 INTESTINAL BYPASS AND ANASTOMOSIS STATUS 08/03/2018 Ot D64.9 ANEMIA, UNSPECIFIED 08/03/2018 Ot E78.5 HYPERLIPIDEMIA, UNSPECIFIED 08/03/2018 Ot E83.51 HYPOCALCEMIA 08/03/2018 Ot E87.1 HYPO- OSMOLALITY AND HYPONATREMIA 08/03/2018 Ot G60.3 IDIOPATHIC PROGRESSIVE NEUROPATHY 08/03/2018 Ot M10.9 GOUT, UNSPECIFIED 08/03/2018 Ot N40.0 BENIGN PROSTATIC HYPERPLASIA WITHOUT LOW 08/03/2018 Ot R60.0 LOCALIZED EDEMA 08/03/2018 Ot R80.9 PROTEINURIA, UNSPECIFIED 08/08/2018 Ot D64.9 ANEMIA, UNSPECIFIED 08/08/2018 Ot E78.5 HYPERLIPIDEMIA, UNSPECIFIED 08/08/2018 Ot E83.51 HYPOCALCEMIA 08/08/2018 Ot E87.1 HYPO- OSMOLALITY AND HYPONATREMIA 08/08/2018 Ot G60.3 IDIOPATHIC PROGRESSIVE NEUROPATHY 08/08/2018 Ot M10.9 GOUT, UNSPECIFIED 08/08/2018 Ot N40.0 BENIGN PROSTATIC HYPERPLASIA WITHOUT LOW 08/08/2018 Ot R60.0 LOCALIZED EDEMA 08/08/2018 Ot R80.9 PROTEINURIA, UNSPECIFIED 08/31/2018 IRINEO BRIGHT, SALINAS Ontiveros Ot 600.00 HYPERTROPHY (BENIGN) OF PROSTATE W/O URI 08/31/2018 SALINAS CABELLO MD Ot V72.63 PRE-PROCEDURAL LABORATORY EXAMINATION 08/31/2018 IRINEO BRIGHT, SALINAS Ontiveros Ot V74.8 SCREEN-BACTERIAL DIS NEC 08/31/2018 YANNA STOVALL DO Ot 786.50 CHEST PAIN NOS 08/31/2018 YANNA STOVALL DO Ot 793.99 OTH NOSP (ABN) FINDINGS RADIOLOGICAL O 08/31/2018 MURRAY BRIGHT, TIA Costello Ot V72.84 EXAM PRE-OPERATIVE NOS 08/31/2018 CATALINO LOO MD Ot V45.81 AORTOCORONARY BYPASS 08/31/2018 CATALINO LOO MD Ot V57.89 REHABILITATION PROC NEC 08/31/2018 Ot D64.9 ANEMIA, UNSPECIFIED 08/31/2018 Ot E78.5 HYPERLIPIDEMIA, UNSPECIFIED 08/31/2018 Ot E83.51 HYPOCALCEMIA 08/31/2018 Ot E87.1 HYPO- OSMOLALITY AND HYPONATREMIA 08/31/2018 Ot G60.3 IDIOPATHIC PROGRESSIVE NEUROPATHY 08/31/2018 Ot M10.9 GOUT, UNSPECIFIED 08/31/2018 Ot N40.0 BENIGN PROSTATIC HYPERPLASIA WITHOUT LOW 08/31/2018 Ot R60.0 LOCALIZED EDEMA 08/31/2018 Ot R80.9 PROTEINURIA, UNSPECIFIED Procedures There is no data. Results Test [...] Status Pt. Type Provider Facility Loc./Unit Complaint [id number] 09/13/2018 13:22:00 09/13/2018 23:59:59 CLS Outpatient STANLEY RUELAS MD [facility] ONC [id number] 06/29/2018 13:40:00 06/29/2018 23:59:59 CLS Outpatient SARAH LIMON DO [facility] ENDO ESOPHAGEAL EROSIAS [id number] 05/13/2018 15:56:00 05/13/2018 18:15:00 DIS Outpatient SARAH LIMON DO [facility] ENDO EGD [id number] 06/20/2017 00:26:00 06/20/2017 03:57:00 DIS Emergency CARLOS EDUARDO LAGUERRE MD [facility] ER DIZZY [id number] 11/26/2014 10:52:00 11/26/2014 11:00:00 DIS Outpatient CATALINO LOO MD [facility] CR CABG [id number] 11/14/2014 08:31:00 11/21/2014 15:27:00 DIS Outpatient CATALINO WILSON DO [facility] REHAB LUMBAR STENOSIS [id number] 11/12/2014 10:18:00 11/12/2014 00:01:00 DIS Outpatient CATALINO LOO MD [facility] CR CABG [id number] 11/09/2014 08:00:00 11/09/2014 23:59:59 CLS Preadmit CATALINO LOO MD [facility] CR CABG [id number] 09/05/2014 13:43:00 09/19/2014 13:58:00 DIS Outpatient CATALINO WILSON DO [facility] REHAB LUMBAR STENOSIS [id number] 04/05/2014 07:24:00 04/05/2014 12:35:00 DIS Outpatient TIA GAO MD [facility] SD HISTORY OF POLYPS [id number] 04/04/2014 07:29:00 04/04/2014 23:59:59 CLS Outpatient TIA GAO MD [facility] PREOP HISTORY OF POLYPS [id number] 02/13/2014 06:25:00 02/13/2014 23:59:59 CLS Outpatient YANNA STOVALL DO [facility] RAD POSTIVE CT CALCIUM SCORE [id number] 11/29/2013 06:05:00 11/30/2013 17:30:00 DIS Outpatient SALINAS CABELLO MD [facility] SD BENIGN PROSTATIC HYPERTROPHY [id number] 11/24/2013 07:51:00 11/24/2013 23:59:59 CLS Outpatient SALINAS CABELLO MD [facility] PREOP BENIGN PROSTATIC HYPERTROPHY [id number] 09/19/2018 06:37:00 ACT Emergency CARLOS EDUARDO LAGUERRE MD [facility] ER AMS [id number] 06/24/2018 10:19:00 Document Registration [id number] 06/23/2018 05:35:00 Document Registration [id number] 06/22/2018 13:16:00 Document Registration [email or web address] 11/26/2014 10:52:12 ACT Document Registration
[2018-09-19 06:55] LABS: BASOPHILS % (AUTO) 0 % (0-10); EOSINOPHILS % (AUTO) 0 % (0-10); HEMATOCRIT 39 % (40-54); HEMOGLOBIN 14.4 G/DL (13.3-17.7); LYMPHOCYTES # (AUTO) 0.5 X 10^3 (1.0-4.0); LYMPHOCYTES % (AUTO) 4 % (12-44); MEAN CORPUSCULAR HEMOGLOBIN 32 PG (25-34); MEAN CORPUSCULAR HGB CONC 37 G/DL (32-36); MEAN CORPUSCULAR VOLUME 87 FL (80-99); MEAN PLATELET VOLUME 11.6 FL (7.4-10.4); MONOCYTES # (AUTO) 0.7 X 10^3 (0.0-1.0); MONOCYTES % (AUTO) 6 % (0-12); NEUTROPHILS # (AUTO) 10.3 X 10^3 (1.8-7.8); NEUTROPHILS % (AUTO) 90 % (42-75); PLATELET COUNT 200 10^3/uL (130-400); RED BLOOD COUNT 4.48 10^6/uL (4.35-5.85); RED CELL DISTRIBUTION WIDTH 12.9 % (10.0-14.5); WHITE BLOOD COUNT 11.5 10^3/uL (4.3-11.0)
[2018-09-19 07:20] LABS: ALANINE AMINOTRANSFERASE 31 U/L (0-55); ALBUMIN 2.1 GM/DL (3.2-4.5); ALKALINE PHOSPHATASE 62 U/L (40-136); BILIRUBIN,TOTAL 1.1 MG/DL (0.1-1.0); BUN/CREATININE RATIO 23; CALCIUM 7.8 MG/DL (8.5-10.1); CARBON DIOXIDE 27 MMOL/L (21-32); CHLORIDE 82 MMOL/L (98-107); CREATININE SERUM 0.79 MG/DL (0.60-1.30); GFR ESTIMATED > 60; GLUCOSE 91 MG/DL (70-105); MAGNESIUM 1.5 MG/DL (1.8-2.4); POTASSIUM 3.4 MMOL/L (3.6-5.0); TOTAL PROTEIN 3.6 GM/DL (6.4-8.2)
[2018-09-19 07:21] LABS: SODIUM 117 MMOL/L (135-145)
[2018-09-19 07:26] LABS: BAND NEUTROPHILS 1 %; LYMPHOCYTES % (MANUAL) 4 %; MONOCYTES % (MANUAL) 4 %; NEUTROPHILS % (MANUAL) 91 %
[2018-09-19 07:27] LABS: BASOPHILS % (MANUAL) 0 %; EOSINOPHILS % (MANUAL) 0 %; RBC MORPH NORMAL
[2018-09-19] MEDS ORDERED: MAGNESIUM 1 GM/100 ML IVPB 100 ML IV ONE ×2 (07:34→07:45)
[2018-09-19] MEDS ORDERED: NS IV 1000 ML 1,000 ML ONE (07:34)
--- NOTE | 2018-09-19 07:38 | Diagnostic Imaging Report ---
INDICATION: Altered mental status. TECHNIQUE: Single frontal view of the chest. COMPARISON: 06/22/2018 FINDINGS: There are bibasilar airspace opacities, right greater than left. No large pleural effusion is seen. No pneumothorax is seen. There is mild diffuse osteopenia. Sternotomy wires and post CABG changes are seen. There is aortic atherosclerosis. IMPRESSION: Bibasilar airspace opacities, right greater than left, may represent atelectasis or infiltrate. Dictated by: Dictated on workstation # [id number]
[2018-09-19] MEDS ORDERED: NS IV 1000 ML 1,000 ML IV ONE (07:45)
--- NOTE | 2018-09-19 07:50 | Diagnostic Imaging Report ---
PROCEDURE: CT head without contrast. TECHNIQUE: Multiple contiguous axial images were obtained through the brain without the use of intravenous contrast. INDICATION: Altered mental status. COMPARISON: 06/22/2018. FINDINGS: The ventricles and cortical sulci are prominent. There is no midline shift or mass effect identified. No acute intracranial hemorrhage is seen. Areas of decreased attenuation are seen in the subcortical and periventricular white matter. These likely represent chronic microvascular disease. No CT evidence of acute territorial ischemia is seen. The calvarium is intact. The paranasal sinuses appear clear. IMPRESSION: 1. No acute intracranial hemorrhage. No CT evidence of acute territorial ischemia. 2. Generalized parenchymal volume loss and findings of chronic microvascular disease. Dictated by: Dictated on workstation # [id number]
--- NOTE | 2018-09-19 08:00 | ED General ---
General Chief Complaint: Altered Mental Status Stated Complaint: AMS Nursing Triage Note: TO ED VIA EMS WITH C/O CONFUSION AND HALLUCINATIONS ALL WEEKEND. Nursing Sepsis Screen: No Definite Risk Source of Information: Patient, Family, Old Records Exam Limitations: Other (delirium) History of Present Illness Date Seen by Provider: Sep 19, 2018 Time Seen by Provider: 06:37 Initial Comments This 78-year-old gentleman with amyloidosis presents to the emergency room via EMS with complaints of weakness, hallucinations, and decreased oral intake and urine output over the weekend. He has amyloidosis and is under the care of Dr. Ruelas. He started chemotherapy September 13. Patient also has had lightheadedness with an episode of syncope and collapse yesterday. There is no obvious traumatic injury. Patient denies any head or neck pain. Patient does have a history of heart disease and is status post CABG. He does not have any chest pain except some mild tenderness along the left lateral chest where he bumped himself with a fall. Patient is hallucinating but has good insight to his hallucinations. He does have some confusion and disorientation. For example, he introduced himself to me twice and thought we were still in the month of August. He complains of constipation. Vital signs were relatively unremarkable and stable for EMS. Patient's provides some of the history. She reports he is to have his next round of chemotherapy tomorrow. He also is scheduled to have an adrenal function test of some type performed at [place] today by Dr. Call. Patient arrived via EMS as he was weak and was not able to get him into the car. Additionally he has had some edema of the left side, especially the left upper extremity. He states he laid on his left side last night. This has been present since starting chemotherapy. It is not painful or inflamed. He is wearing compression stockings. Finally, patient complains of inability to sleep for the last 3 nights. He had been using Xanax which became ineffective. Last night he tried Ambien for the first time which also was ineffective. Allergies and Home Medications Allergies Coded Allergies: Cosayte-Afg-Lgr Reductase Inhibitor (Verified Allergy, Severe, POSS KIDNEY ISSUES, 06/23/18) Home Medications Aspirin 81 Mg Tab.chew, 81 MG PO DAILY, (Reported) Cholecalciferol (Vitamin D3) 50,000 Unit Capsule, 50,000 UNIT PO 2 X PER WEEK, ( Reported) Evolocumab 140 Mg/1 Ml Pen.injctr, 140 MG SQ EVERY OTHER WEEK, (Reported) Patient Home Medication List Home Medication List Reviewed: Yes Review of Systems Review of Systems Constitutional: see HPI, dizziness; No fever; weakness EENTM: no symptoms reported Respiratory: no symptoms reported Cardiovascular: see HPI Gastrointestinal: see HPI Genitourinary: see HPI Musculoskeletal: see HPI Skin: no symptoms reported Psychiatric/Neurological: See HPI Hematologic/Lymphatic: No Symptoms Reported Immunological/Allergic: no symptoms reported Past Bysirpf-Cphryq-Daxixl Hx Past Med/Social Hx: Reviewed and Corrections made Patient Social History Alcohol Use: Denies Use Number of Drinks Today: AA Alcohol Beverage of Choice: Beer Recreational Drug Use: Yes Drug of Choice: MARIJUANA 2nd Hand Smoke Exposure: No Recent Foreign Travel: No Contact w/Someone Who Travel: No Recent Infectious Disease Expo: No Recent Hopitalizations: No Immunizations Up To Date Tetanus Booster (TDap): Unknown Date of Pneumonia Vaccine: April 05, 2013 Seasonal Allergies Seasonal Allergies: Yes (SINUS ISSUES) Past Medical History Surgeries: Yes (BACK) Abdominal (endoscopy), CABG, Orthopedic, Prostatectomy Respiratory: No Cardiac: Yes (CAD, AMYLOIDOSIS) Coronary Artery Disease, High Cholesterol, Hypertension Neurological: Yes Neuropathy Reproductive Disorders: No Sexually Transmitted Disease: No HIV/AIDS: No Genitourinary: No (KIDNEY DZ) 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) Musculoskeletal: No Endocrine: No HEENT: No Macular Degeneration Loss of Vision: Bilateral Hearing Impairment: Denies Cancer: No Psychosocial: No Integumentary: No Blood Disorders: No Adverse Reaction/Blood Tranf: No (N/A) Family Medical History Reviewed Nursing Family Hx Congestive heart failure 03 MOTHER Family history: Thyroid disorder 09 SISTER History of - disorder 03 FATHER (RENA TRACE'S DISEASE) No Family History of: Abdominal aortic aneurysm Cancer Dementia Family history: Allergy Family history: Alzheimer's disease Family history: Arthritis Family history: Cardiovascular disease Family history: Diabetes mellitus Family history: Gastrointestinal disease Hereditary disease History of - respiratory disease COPD Physical Exam Vital Signs Vital Signs - First Documented 09/19/18 06:42 Temp 98.3 Pulse 80 Resp 19 B/P (MAP) 134/97 (109) Capillary Refill : Less Than 3 Seconds Height, Weight, BMI Height: 5'11.00" Weight: 160lbs. 0.0oz. [id number]; 22.3 BMI Method:Stated General Appearance: No Apparent Distress, WD/WN HEENT: PERRL/EOMI, Other (some blotchy markings on the face around the nose and lips of undetermined significance. Mucous membranes dry) Neck: Normal Inspection, Non Tender Respiratory: Lungs Clear, Normal Breath Sounds, No Accessory Muscle Use, No Respiratory Distress, Other (slight tenderness over the left lateral chest wall) Cardiovascular: Regular Rate, Rhythm, No Murmur, Normal Peripheral Pulses, Other (mild edema of the left lower extremity and moderate edema on the left upper extremity) Extremity: Non Tender, Swelling (as above) Neurologic/Psychiatric: Alert, No Motor/Sensory Deficits, Normal Mood/Affect, rate marker II-XII Norm as Tested, Other (intermittent disorientation, hallucinations with reasonably good insight to hallucinations) Skin: Normal Color, Warm/Dry, Other (see HEENT exam) Progress/Results/Core Measures Suspected Sepsis Recent Fever Within 48 Hours: No Infection Criteria Present: None New/Unexplained Altered Menta: Yes Sepsis Screen: No Definite Risk SIRS Temperature:98.3 Pulse: 80 Respiratory Rate: 19 Laboratory Tests 09/19/18 06:42: White Blood Count 11.5H Blood Pressure 134 /97 Mean: 109 Laboratory Tests 09/19/18 06:42: Creatinine 0.79, Platelet Count 200, Total Bilirubin 1.1H Results/Orders Lab Results Laboratory Tests Test 09/19/18 06:42 09/19/18 06:54 Range/Units White Blood Count 11.5 H 4.3-11.0 10^3/uL Red Blood Count 4.48 4.35-5.85 10^6/uL Hemoglobin 14.4 13.3-17.7 G/DL Hematocrit 39 L 40-54 % Mean Corpuscular Volume 87 80-99 FL Mean Corpuscular Hemoglobin 32 25-34 PG Mean Corpuscular Hemoglobin Concent 37 H 32-36 G/DL Red Cell Distribution Width 12.9 10.0-14.5 % Platelet Count 200 130-400 10^3/uL Mean Platelet Volume 11.6 H 7.4-10.4 FL Neutrophils (%) (Auto) 90 H 42-75 % Lymphocytes (%) (Auto) 4 L 12-44 % Monocytes (%) (Auto) 6 0-12 % Eosinophils (%) (Auto) 0 0-10 % Basophils (%) (Auto) 0 0-10 % Neutrophils # (Auto) 10.3 H 1.8-7.8 X 10^3 Lymphocytes # (Auto) 0.5 L 1.0-4.0 X 10^3 Monocytes # (Auto) 0.7 0.0-1.0 X 10^3 Eosinophils # (Auto) 0.0 0.0-0.3 10^3/uL Basophils # (Auto) 0.0 0.0-0.1 10^3/uL Neutrophils % (Manual) 91 % Lymphocytes % (Manual) 4 % Monocytes % (Manual) 4 % Eosinophils % (Manual) 0 % Basophils % (Manual) 0 % Band Neutrophils 1 % Blood Morphology Comment NORMAL Sodium Level 117 *L 135-145 MMOL/L Potassium Level 3.4 L 3.6-5.0 MMOL/L Chloride Level 82 L 98-107 MMOL/L Carbon Dioxide Level 27 21-32 MMOL/L Anion Gap 8 5-14 MMOL/L Blood Urea Nitrogen 18 7-18 MG/DL Creatinine 0.79 0.60-1.30 MG/DL Estimat Glomerular Filtration Rate > 60 BUN/Creatinine Ratio 23 Glucose Level 91 70-105 MG/DL Calcium Level 7.8 L 8.5-10.1 MG/DL Corrected Calcium 9.3 8.5-10.1 MG/DL Magnesium Level 1.5 L 1.8-2.4 MG/DL Total Bilirubin 1.1 H 0.1-1.0 MG/DL Aspartate Amino Transf (AST/SGOT) 56 H 5-34 U/L Alanine Aminotransferase (ALT/SGPT) 31 0-55 U/L Alkaline Phosphatase 62 40-136 U/L Troponin I < 0.30 <0.30 NG/ML Total Protein 3.6 L 6.4-8.2 GM/DL Albumin 2.1 L 3.2-4.5 GM/DL Glucometer 88 70-110 MG/DL My Orders Orders - CARLOS EDUARDO LAGUERRE MD Accucheck Stat ONCE (09/19/18 06:44) Saline Lock/Iv-Start (09/19/18 06:44) Ekg Tracing (09/19/18 06:44) Monitor-Rhythm Ecg Trace Only (09/19/18 06:44) Cbc With Automated Diff (09/19/18 06:44) Comprehensive Metabolic Panel (09/19/18 06:44) Magnesium (09/19/18 06:44) Troponin I (09/19/18 06:44) Ua Culture If Indicated (09/19/18 06:44) Ct Head Wo (09/19/18 06:44) Chest 1 View, Ap/Pa Only (09/19/18 06:44) Manual Differential (09/19/18 06:42) Magnesium 1 Gm/100 Ml Ivpb (Magnesium Singh (09/19/18 07:45) Ns Iv 1000 Ml (Sodium Chloride 0.9%) (09/19/18 07:45) Magnesium 1 Gm/100 Ml Ivpb (Magnesium Singh (09/19/18 07:34) Ns Iv 1000 Ml (Sodium Chloride 0.9%) (09/19/18 07:34) Medications Given in ED Current Medications Medications Dose Ordered Sig/Ashlyn Route Start Time Stop Time Status Last Admin Dose Admin Magnesium Sulfate/ Dextrose 100 ml @ 100 mls/hr ONCE ONCE IV 09/19/18 07:45 09/19/18 08:44 09/19/18 07:46 100 MLS/HR Sodium Chloride 1,000 ml @ 200 mls/hr Q5H ONCE IV 09/19/18 07:45 09/19/18 12:44 09/19/18 07:40 200 MLS/HR Vital Signs/I&O 09/19/18 06:42 Temp 98.3 Pulse 80 Resp 19 B/P (MAP) 134/97 (109) Capillary Refill : Less Than 3 Seconds Blood Pressure Mean: 109 Point of Care Testing Finger Stick Blood Glucose: 88 Progress Note : Progress Note Patient was found to be significantly hyponatremic. We finished the 1 L of normal saline started by EMS. A second liter was started at 200 mL per hour. 1 g of magnesium sulfate was also infused. We will add potassium to his IV fluids upon admission. CT head was unremarkable. Chest x-ray showed possible bibasilar atelectasis versus infiltrate. Clinical presentation and workup did not otherwise correlate with pneumonia. Dr. Ruelas is not working at [facility] today. Patient was therefore admitted to the hospitalist service. ECG Initial ECG Impression Date: Sep 19, 2018 Initial ECG Impression Time: 06:54 Initial ECG Rate: 80 Initial ECG Rhythm: Normal Sinus Comment Sinus rhythm with no ST elevation or depression. Low voltage with possible right axis deviation. Artifact noted. Diagnostic Imaging Diagonstic Imaging: Xray Plain Films/CT/US/NM/MRI: chest Comments Chest x-ray viewed by me and report reviewed. See report below: NAME: [facility] REC#: [id number] PT STATUS: REG ER : 1940 PHYSICIAN: CARLOS EDUARDO LAGUERRE MD ADMIT DATE: 09/19/18/ER Draft Date of Exam:09/19/18 CHEST 1 VIEW, AP/PA ONLY INDICATION: Altered mental status. TECHNIQUE: Single frontal view of the chest. COMPARISON: 06/22/2018 FINDINGS: There are bibasilar airspace opacities, right greater than left. No large pleural effusion is seen. No pneumothorax is seen. There is mild diffuse osteopenia. Sternotomy wires and post CABG changes are seen. There is aortic atherosclerosis. IMPRESSION: Bibasilar airspace opacities, right greater than left, may represent atelectasis or infiltrate. Dictated on workstation # [id number] Dict: 09/19/18 0731 Trans: 09/19/18 0738 [id number] Interpreted by: CORAZON WILKERSON MD Diagonstic Imaging: CT Plain Films/CT/US/NM/MRI: head Comments CT head viewed by me and report reviewed. See report below: NAME: [facility] REC#: [id number] PT STATUS: REG ER : 1940 PHYSICIAN: CARLOS EDUARDO LAGUERRE MD ADMIT DATE: 09/19/18/ER Draft Date of Exam:09/19/18 CT HEAD WO PROCEDURE: CT head without contrast. TECHNIQUE: Multiple contiguous axial images were obtained through the brain without the use of intravenous contrast. INDICATION: Altered mental status. COMPARISON: 06/22/2018. FINDINGS: The ventricles and cortical sulci are prominent. There is no midline shift or mass effect identified. No acute intracranial hemorrhage is seen. Areas of decreased attenuation are seen in the subcortical and periventricular white matter. These likely represent chronic microvascular disease. No CT evidence of acute territorial ischemia is seen. The calvarium is intact. The paranasal sinuses appear clear. IMPRESSION: 1. No acute intracranial hemorrhage. No CT evidence of acute territorial ischemia. 2. Generalized parenchymal volume loss and findings of chronic microvascular disease. Dictated on workstation # [id number] Dict: 09/19/18 0730 Trans: 09/19/18 0750 [facility] [id number] Interpreted by: CORAZON WILKERSON MD Departure Communication (Admissions) Time/Spoke to Admitting Phy: 07:50 Dr. Nelson Impression Primary Impression: Hyponatremia Additional Impressions: Hypomagnesemia Delirium Syncope and collapse Amyloidosis Qualified Codes: E85.9 - Amyloidosis, unspecified Constipation Qualified Codes: K59.00 - Constipation, unspecified Insomnia Qualified Codes: G47.00 - Insomnia, unspecified Disposition: 09 ADMITTED INPATIENT Condition: Improved Admissions Decision to Admit Reason: Admit from ER (General) Decision to Admit/Date: Sep 19, 2018 Time/Decision to Admit Time: 07:30 Departure-Patient Inst. Referrals: YANNA STOVALL DO (PCP/Family) Primary Care Physician Copy Copies To 1: YANNA STOVALL DO Copies To 2: STANLYE RUELAS MD, JOSHUA T MD Sep 19, 2018 08:00
--- OUTSIDE RECORDS SUMMARY | 2018-09-19 08:15 | XMS REPORT | Encounter Summary ---
Author Author [facility] Organization [facility] Address Unknown Phone Unavailable Care Team Providers Care Aircraft Mechanic Structures Name Role Phone Sae Gu MD PCP Sae Allen MD Unavailable Luisa Call DO Unavailable Nikita Armijo MD Unavailable Isai Parra MD Unavailable Shameka Ashton MD Unavailable Salvador Markham MD 3 Salvador Markham MD Unavailable Reason for Visit * Reason Comments Follow Up Encounter Details Date Type Department Care Team Description 08/23/2018 Office Visit [facility] Nikita Armijo MD Neuropathy (Primary Dx); Physicians-Neurology [address] [place] [facility] [place] [address] amyloidosis (HCC); [address] [phone] Orthostatic [place], [place] lightheadedness [phone] Social History Tobacco Use [...] the patient but he is going to [facility] tomorrow for second opinion. The patient [...] Take 20 mg by mouth daily. Vit A,C,A-Dxyr-Mlolif (ICAPS AREDS) [id number] hadu-gl-uuko cap Take 1 capsule by mouth daily. [...] is going for a second opinion at [facility] tomorrow before he starts treatment. His [...] This note was in part completed with Brnd[employer], a speech recognition software. Some grammatical and graduation coach errors may have occurred. If you have any concern, please contact my office for clarification Nikita Armijo MD [facility] Neurology/Neuromuscular Medicine in this encounter Plan of Treatment Not on fileas of this encounter Visit Diagnoses Diagnosis Neuropathy - Primary Mononeuritis of unspecified site [place] amyloidosis (HCC) Orthostatic lightheadedness Dizziness and giddiness
--- OUTSIDE RECORDS SUMMARY | 2018-09-19 08:15 | XMS REPORT | Encounter Summary ---
Author Author [facility] Organization [facility] Address Unknown Phone Unavailable Care Team Providers Care Refrigerator Repair Technician Name Role Phone Sae Gu MD PCP Sae Allen MD Unavailable Luisa Call DO Unavailable Nikita Armijo MD Unavailable Isai Parra MD Unavailable Shameka Ashton MD Unavailable Salvador Markham MD 3 Salvador Markham MD Unavailable Encounter Details Date Type Department Care Team Description 08/29/2018 Documentation [facility] Nikita Armijo MD Physicians-Neurology [address] [facility] [place] [address] [address] [facility] [phone] [place] [address] Social History Tobacco Use Types Packs/Day Years Used Date Never Smoker Smokeless Tobacco: Never Used Alcohol Use Drinks/Week oz/Week Comments Yes Very Rare Sex Assigned at Date Recorded Not on file as of this encounter Progress Notes * Alyssa Augustin LPN - 08/29/2018 4:24 PM CDT Patient went to [facility] for evaluation, whom has confirmed diagnosis and recommended patient cancel tilt table testing, so they will not be going through with this procedure. Patient has requested [place] send records to Dr. Armijo. Confirmed f/u appt. in this encounter Plan of Treatment Not on fileas of this encounter Visit Diagnoses Not on filein this encounter
--- OUTSIDE RECORDS SUMMARY | 2018-09-19 08:15 | XMS REPORT | Encounter Summary ---
Author Author [facility] Organization [facility] Address Unknown Phone Unavailable Care Team Providers Care Dado Operator Name Role Phone Sae Gu MD PCP Sae Allen MD Unavailable Luisa Call DO Unavailable Nikita Armijo MD Unavailable Isai Parra MD Unavailable Shameka Ashton MD Unavailable Salvador Markham MD 3 Salvador Markham MD Unavailable Encounter Details Date Type Department Care Team Description 08/29/2018 Documentation Cardiovascular Medicine Malaika Cloud, [place] [id number] [address] [place] [address] Social History Tobacco Use Types Packs/Day Years [...] tilt table test. They went to [facility] recently to consult with the head of [...]
--- OUTSIDE RECORDS SUMMARY | 2018-09-19 08:15 | XMS REPORT | Encounter Summary ---
Author Author [facility] Organization [facility] Address Unknown Phone Unavailable Care Team Providers Care Dependency Program Director Name Role Phone Sae Gu MD [...] Destiny Quiros Records Request [address] [place] [address] Social History Tobacco Use Types Packs/Day Years [...] O2 and also Dr Sae Allen at [facility] in [place] in this encounter Plan of Treatment Not on fileas of this encounter Visit Diagnoses Not on filein this encounter
--- OUTSIDE RECORDS SUMMARY | 2018-09-19 08:15 | XMS REPORT | Encounter Summary ---
Author Author [facility] Organization [facility] Address Unknown Phone Unavailable Care Team Providers Care Quality Control Clerk Name Role Phone Sae Gu MD PCP Sae Allen MD Unavailable Luisa Call DO Unavailable Nikita Armijo MD Unavailable Isai Parra MD Unavailable Shameka Ashton MD Unavailable Salvador Markham MD 3 Salvador Markham MD Unavailable Encounter Details Date Type Department Care Team Description 09/05/2018 Documentation [facility] Nikita Armijo MD Physicians-Neurology [address] [facility] [place] [address] [address] [facility] [phone] [place] [address] Social History Tobacco Use Types Packs/Day Years Used Date Never Smoker Smokeless Tobacco: Never Used Alcohol Use Drinks/Week oz/Week Comments Yes Very Rare Sex Assigned at Date Recorded Not on file as of this encounter Progress Notes * Anca Garcia, RN - 09/05/2018 2:21 PM CDT Received [place]'s faxed records, will give to MR to upload into system. in this encounter Plan of Treatment Not on fileas of this encounter Visit Diagnoses Not on filein this encounter
--- OUTSIDE RECORDS SUMMARY | 2018-09-19 08:15 | XMS REPORT | Clinical Summary ---
Author Author [facility] Organization [facility] Address Unknown Phone Unavailable Care Team Providers Care Fisher Name Role Phone Sae Gu MD PCP [...] in the Health Information Management department at [phone] for further assistance in locating additional records.[facility] Allergies No Known Allergies Current Medications Prescription [...] 81 mg by mouth Active daily. Vit A,C,X-Odzl-Pvlrxj Take 1 capsule by mouth Active (ICAPS AREDS) daily. 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) (Primary Dx); Multiple myeloma, remission [...] Neurology Nikita Armijo MD General Question 07/11/2018 [facility] Lab Albino Terrazas DO Other proteinuria Encounter 07/08/2018 Telephone Cardiology Fior Thomas, MILLIE Follow-up Phone Call 07/08/2018 Pharmacy Visit 07/07/2018 [facility] Sae Gu III, Proteinuria - Encounter MD 07/08/2018 Zahraa Casas MD Kelly, Brendan S, Serena Hays, Fior Manuel, RT(R)(),LRT Juancho Cartwright MD 07/07/2018 Anesthesia Radiology Alyssa Cabrera, SRNA Event 06/22/2018 Pre/Post Radiology Alba Villa RN Procedure 06/22/2018 Orders Only Radiology Zcah Mcghee RN Other proteinuria (Primary Dx) from [...] procedure are in the TEST results section. [place] [facility] TEST 08/08/2018 Amyloidosis (HCC) Results for this 5:03 PM CDT procedure are in the results section. BONE MARROW 08/08/2018 Results for this 5:03 PM CDT procedure are in the results section. [place] [facility] TEST Routine 08/08/2018 Results for this 4:30 PM CDT procedure are in the results section. [place] [facility] TEST Routine 08/08/2018 Results for this 4:30 PM CDT procedure are in the results section. [place] REFERENCE TEST Routine 08/08/2018 Amyloidosis, unspecified Results for this 4:30 PM CDT type (HCC) procedure are in the results section. [place] REFERENCE TEST Routine 08/08/2018 Amyloidosis, unspecified Results [...] myeloma, results section. remission status unspecified (HCC) [place] [facility] TEST 07/11/2018 Results for this 3:35 [...] CDT procedure are in the results section. [place] [facility] TEST Routine 07/07/2018 Results for this [...] REFERENCE LAB SPECTROMETRY Reference Lab PERFORMED AT [facility] REFERENCE LAB LABORATORIES Results Ref Lab SEE [facility] TEST REFERENCE LAB Specimen Mail TISSUE, BLOCK, [phone] A1 REFERENCE LAB Performing Organization Address City/State/Zipcode Phone Number REFERENCE LAB REFERENCE LAB See results for address. * BONE MARROW (08/08/2018 5:03 PM) PATHOLOGY REPORT [facility] [email or web address] Department of Pathology and Laboratory Medicine [address] [place] [address] Surgical Pathology Office:[phone] :[phone] SURGICAL PATHOLOGY REPORT NAME: NEGRITA MOORE SURG PATH #: [id number] MR #: [id number] ALT ID #: LOCATION: [facility] DATE OF PROCEDURE: 08/08/2018 [...] and Laboratory Medicine of the [facility] ([employer]) in compliance with [...] and Laboratory Medicine of the [facility].It has not been cleared or approved by the FDA.The FDA has determined that such clearance or approval is not necessary. Performing Organization Address City/State/Zipcode Phone Number KU LAB RESULTS * [facility] TEST (08/08/2018 5:03 PM) Only the most recent of 4 results within the time period is included. 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 A [...] the Department of Laboratory Medicine and Pathology, [facility] at . Report electronically signed by Shakeel Haynes M.D. Material Received A. [id number]: Kidney, [place] 1 block Disclaimer This test was developed and its performance characteristics determined by [facility] in a manner consistent with CLIA requirements. This test has not been cleared or approved by the U.S. Food and Drug Administration. Test Performed by: [place] [address] Performing Organization Address City/[facility] Phone Number REFERENCE LAB REFERENCE LAB See results for address. * [facility] (08/08/2018 4:30 PM) Ref Lab Test Code [id number], Troponin T REFERENCE LAB REF LAB RESULT (MSAR) SEE NOTE REFERENCE LAB Test name Result Flag UnitsRefIntvl - Troponin-T 0.04 H ng/mL <=0.01 Performed by [facility], [address] [place] [id number] [email or web address], Loi Wang MD, Lab. Director Performing Organization Address City/State/Zipcode Phone Number REFERENCE LAB REFERENCE LAB See results for address. * [place] RE[facility] TEST (08/08/2018 4:30 PM) Only the most recent of 3 results within the time period is included. Test Troponin T REFERENCE LAB Reference Lab PERFORMED AT [facility] REFERENCE LAB LABORATORY-FOR REF RANGE SEE REPORT. Results Ref Lab SEE REF LAB RESULT REFERENCE LAB Specimen Mail SERUM REFERENCE LAB Performing Organization Address [facility] Phone Number REFERENCE LAB REFERENCE LAB See results for address. * IMMUNOFIXATION, SERUM (IFES) (08/08/2018 4:30 PM) Immuno Fix-Serum NO PARAPROTEIN SEEN [facility] Pathologist Signature INTERPRETED BY LUCERO RANGEL M.D. [facility] By the PATH SIGNATURE ABOVE, I attest that I have personally formulated the final interpretation expressed in this report and that the above diagnosis is based upon my examination of the slides and/or other material indicated in this report. Specimen Blood Performing Organization Address [facility] Phone Number [facility] [address] [place] [address] * KAPPA/LAMBDA FREE LIGHT CHAINS (08/08/2018 4:30 PM) Bruce, FLC 1.20 0.33 - 1.94 MG/DL [facility] Comment: Freelite results should always be interpreted in conjunction with other laboratory tests and clinical evidence.The possibility of Antigen Excess exists and can cause Immunoassays to under estimate very high concentrations of antigen. Any discordant results should be discussed with Dr. Montaño. Lambda, FLC 4.03 (H) 0.57 - 2.63 MG/DL [facility] Bruce/Lambda FLC 0.30 0.26 - 1.65 MAIN LAB Specimen Blood Performing Organization Address [facility] [place] [place] Phone Number [facility] [address] [place] [address] * PTT (APTT) (08/08/2018 4:30 PM) APTT 28.9Comment: NOTE NEW 20.0 - 36.0 SEC MAIN LAB REFERENCE RANGES Specimen Blood Performing Organization Address [facility] Phone Number MAIN LAB [address] [place] [address] * PROTIME INR (PT) (08/08/2018 4:30 PM) Only the most recent of 2 results within the time period is included. INR 0.9 0.8 - 1.2 MAIN LAB Specimen Blood Performing Organization Address [facility]/Zipcode Phone Number MAIN LAB [address] [place] [address] * CBC AND DIFF (08/08/2018 4:30 PM) White Blood Cells 7.0 4.5 - 11.0 K/UL [facility] RBC 4.18 (L) 4.4 - 5.5 M/UL [facility] Hemoglobin 13.5 13.5 - 16.5 GM/DL [facility] Hematocrit 39.5 (L) 40 - 50 % [facility] MCV 94.4 80 - 100 FL [facility] MCH 32.3 26 - 34 PG [facility] MCHC 34.2 32.0 - 36.0 G/DL [facility] RDW 14.0 11 - 15 % [facility] Platelet Count 211 150 - 400 K/UL [facility] MPV 9.6 7 - 11 FL [facility] Segmented Neutrophils 84 (H) 41 - 77 % [facility] Lymphocytes 14 (L) 24 - 44 % [facility] Monocytes 2 (L) 4 - 12 % [facility] Normal RBC Morph NORMAL [facility] Platelet Estimate NORMAL [facility] Absolute Neutrophil Count 5.88 1.8 - 7.0 K/UL [facility] Manual Specimen Blood Performing Organization Address City/[facility]/Zipcode Phone Number [facility] [address] [place] [address] * IMMUNOGLOBULINS-IGA,IGG,IGM (08/08/2018 4:30 PM) IgG 277 (L) 762 - 1,488 MG/DL [facility] IgA 46 (L) 70 - 390 MG/DL [facility] IgM 31 (L) 38 - 328 MG/DL [facility] Specimen Blood Performing Organization Address City/[facility]/Zipcode Phone Number [facility] [address] [place] [address] * ELECTROPHORESIS-SERUM PROTEIN (08/08/2018 4:30 PM) Total [...] this report. Specimen Blood Performing Organization Address City/[facility]/Zipcode Phone Number [facility] [address] [place] [address] * BNP (B-TYPE NATRIURETIC PEPTI) (08/08/2018 4:30 PM) B Type Natriuretic 611.0 (H) 0 - 100 PG/ML [facility] Peptide Specimen Blood Performing Organization Address [facility]/Zipcode Phone Number [facility] [address] [place] [address] * LDH-LACTATE DEHYDROGENASE (08/08/2018 4:30 PM) Lactate Dehydrogenase 234 (H) 100 - 210 U/L [facility] Specimen Blood Performing Organization Address [facility] Phone Number [facility] [address] [place] [address] * BETA 2 MICROGLOBULIN (08/08/2018 4:30 PM) B2 Microglobulin 1.9 0.8 - 2.3 MG/L [facility] Specimen Blood Performing Organization Address [facility] Phone Number [facility] [address] [place] [address] * COMPREHENSIVE METABOLIC PANEL (08/08/2018 4:30 PM) Only the most recent of 2 results within the time period is included. Sodium 126 (L) 137 - 147 MMOL/L [facility] Potassium 4.1 3.5 - 5.1 MMOL/L [facility] Chloride 95 (L) 98 - 110 MMOL/L [facility] Glucose 105 (H) 70 - 100 [...] Alk Phosphatase 67 25 - 110 U/L [facility] AST (SGOT) 21 7 - 40 U/L [facility] CO2 31 (H) 21 - 30 MMOL/L [facility] ALT (SGPT) 14 7 - 56 U/L [facility] Anion Gap <1 (L) 3 - 12 [facility] eGFR Non >60 >60 mL/min [facility] Comment: The eGFR is not validated for use in drug dosing adjustments.Continue to use estimated creatinine clearance per dosing reference text.Please contact the Clinical Pharmacist for questions. eGFR >60 >60 mL/min [facility] Comment: The eGFR is not validated for use in drug dosing adjustments.Continue to use estimated creatinine clearance per dosing reference text.Please contact the Clinical Pharmacist for questions. Specimen Blood Performing Organization Address City/State/Zipcode Phone Number [facility] [address] [place] [address] * FLOW CYTOMETRY (08/08/2018 3:43 PM) PATHOLOGY REPORT [facility] [email or web address] [email or web address] Aric Broussard MD, Director of Flow Cytometry Laboratory Department of Pathology and Laboratory Medicine [address] [place] [address] Surgical Pathology Office:[phone] :[phone] FLOW CYTOMETRY REPORT NAME: NEGRITA MOORE SURG PATH #: [id number] MR #: [id number] SPECIMEN CLASS: LC BILLING #: [id number] ALT ID #:LOCATION: [facility] DATE OF PROCEDURE: 08/08/2018 [...] in this report. +++Electronically Signed Out By+++ [facility]/08/08/2018 Interpreted by: Flaco Zhao MD 08/09/2018 ############################## ############################## ############ Lab Data: Flow Cytometry - Multiple Myeloma, Minimal Residual Disease Panel Analytic sensitivity of the lower detection limit in this assay is 0.01% Plasma Cell Associated Markers (% Positive Cells): ML35=370; ZT586=701; cyKappa=5; cyLambda=93; cyK/cyL ratio=0.1 Miscellaneous Markers (% Positive Cells): CD19=5; CD20=44; CD27=35; CD28=2; CD45=93; CD56=3; CD81=69; SH083=76 Cell Viability (%):n/a Number of Cells Analyzed:1,103,218 Plasma Cells Detected:1.66 Total Number of Markers:15 Summary of Marker Combinations: 81/28/138/38/45/27/20; cyKappa/cyLambda/138/117/38/45 /56/19 This test was developed and its performance characteristics determined by the [facility] Flow Cytometry Laboratory.It has not been cleared [...] Marrow - Bone Marrow Performing Organization Address City/[facility] Phone Number MAIN LAB [address] [place] [address] * CHROMOSOMES FISH DNA PROBE (08/08/2018 3:43 PM) Chromosomes Fish DNA SEE CERTIFIED PHARMACIST ASSISTANT FOR REPORT MAIN LAB Probe Specimen Bone Marrow Performing Organization Address [facility] Phone Number MAIN LAB [address] [place] [address] * CHROMOSOMES BONE MARROW (08/08/2018 3:43 PM) Chromosomes Bone Marrow SEE CERTIFIED PHARMACIST ASSISTANT FOR REPORT MAIN LAB Specimen Bone Marrow Performing Organization Address City/[facility] Phone Number MAIN LAB [address] [place] [address] * FE STAIN (08/08/2018 3:43 PM) Bone Marrow FE SEE PATHOLOGY REPORT MAIN LAB Specimen Bone Marrow - Bone Marrow Performing Organization Address [facility] Phone Number MAIN LAB [address] [place] [address] * BONE MARROW ASP (08/08/2018 3:43 PM) Bone Marrow Asp SEE PATHOLOGY REPORT MAIN LAB Specimen Bone Marrow - Bone Marrow Performing Organization Address [facility] Phone Number MAIN LAB [address] [place] [address] * BONE MARROW BIOPSY (08/08/2018 3:43 PM) Bone Marrow Bx SEE PATHOLOGY REPORT MAIN LAB Specimen Bone Marrow - Bone Marrow Performing Organization Address City/[facility]/Zipcode Phone Number MAIN LAB [address] [place] [address] * METASTATIC SKELETAL SURVEY (08/08/2018 3:06 PM) [...] procedure well. CHELSEY Loja Performing Organization Address City/[facility] Phone Number OTHER OUTSIDE LAB * TELEMETRY [...] MAIN LAB Specimen Blood Performing Organization Address City/[facility] Phone Number MAIN LAB [address] [place] [address] * MAGNESIUM (07/08/2018 5:26 AM) Magnesium 1.7 1.6 - 2.6 mg/dL MAIN LAB Specimen Blood Performing Organization Address City/[facility] Phone Number [facility] [address] [place] [address] * SURGICAL PATHOLOGY (07/07/2018 2:03 PM) PATHOLOGY REPORT [facility] [email or web address] [email or web address] Department of Pathology and Laboratory Medicine [address] [place] [address] Surgical Pathology Office:[phone] :[phone] SURGICAL PATHOLOGY REPORT NAME: NEGRITA MOORE SURG PATH #: [id number] MR #: [id number] SPECIMEN CLASS: SR BILLING #: [id number] ALT ID #:LOCATION: [id number] DATE OF PROCEDURE: 07/07/2018 AGE:77 SEX: M DATE RECEIVED: 07/07/2018 : 1940TIME RECEIVED: 14:03 PHYSICIAN: JAS PARRA MD DATE OF REPORT: 07/20/2018 COPY TO:DATE OF PRINTIN07/20/2018 ############################## ############################## ############ Final Diagnosis: A, B and C. 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 Attestation: By this signature, I attest that I have personally formulated the final interpretation expressed in this report and that the above diagnosis is based upon my examination of the slides and/or other material indicated in this report. +++ +++ ksw/07/08/2018 ############################## ############################## ############ Material Received: A: [place] [facility]ney with Protocol B: Immunofluorescence ([place])-[place] [facility] C: Electron microscopy (glutaraldehyde)-[place] ( mailed out to [facility] for processing) History: 77-year-old male with history [...] and its performance characteristics determined by the [facility] pathology laboratory. It has not been cleared [...] Description: A. Received in formalin labeled "left [place] renal biopsy" is a 1.1 cm in length by 0.1 in diameter core of lombardo-red tissue . The specimen is submitted entirely in cassette A1. (ab) B. Received in Renan's solution labeled "left [place] renal biopsy-IF" is a 0.9 x 0.1 x 0.1 cm core of lombardo-red tissue. The specimen is submitted entirely for immunofluorescence studies.(ab) C. Received in saline and transferred to formalin labeled "left [place] renal biopsy-EM" is a 0.8 x 0.1 x 0.1 cm core of lombardo-red tissue. The specimen is submitted entirely in sent to [facility] for electron microscopy studies.(ab) ab/07/07/2018 If immunohistochemical stains and/or in situ hybridization are cited in this report, the performance characteristics were determined by the Department of Pathology and Laboratory Medicine of the [facility] ([employer]) in compliance with [...] and Laboratory Medicine of the [facility].It has not been cleared or approved [...] PM. Narrative Performed At Ultrasound Guided Percutaneous [place] [facility] Biopsy [facility] RAD RESULTS INDICATION:Renal failure TOOL DESIGN ENGINEER:Nathan Soler M.D. DEVICE:18g biopsy gun through 17g needle guide [id number] gauge cores COMPLICATIONS:None immediate TECHNIQUE: The risks, [...] 07/11/2018 4:29 PM CDT Ultrasound Guided Percutaneous [place] [facility] Biopsy INDICATION: Renal failure TOOL DESIGN ENGINEER: Nathan Soler M.D. DEVICE: 18g biopsy gun [...]
--- OUTSIDE RECORDS SUMMARY | 2018-09-19 08:16 | XMS REPORT | Encounter Summary ---
Author Author [facility] Organization [facility] Address Unknown Phone Unavailable Care Team Providers Care Metal Numerical Tool Programmer Name Role Phone Sae Gu MD PCP Sae Allen MD Unavailable Luisa Call DO Unavailable Nikita Armijo MD Unavailable Isai Parra MD Unavailable Shameka Ashton MD Unavailable Salvador Markham MD 3 Reason for Visit * Reason Comments Test Encounter Details Date Type Department Care Team Description 08/09/2018 Telephone [facility] Angella Rincon MD [facility] Exam [address] [facility] [place] [address] [address] [facility] [phone] [place], [place] [phone] Social History Tobacco Use Types Packs/Day Years [...] is typically 3 weeks for results and [facility] will be starting the test tomorrow. Phone number to [place] ( ) provided by Delicia for this [employer] to discuss expediting testing. Spoke with Gisel with [facility] who requested electronic order number for testing [...]
--- OUTSIDE RECORDS SUMMARY | 2018-09-19 08:16 | XMS REPORT | Encounter Summary ---
Author Author [facility] Organization [facility] Address Unknown Phone Unavailable Care Team Providers Care Intelligence Senior Sergeant Name Role Phone Sae Gu MD PCP Sae Allen MD Unavailable Luisa Call DO Unavailable Nikita Armijo MD Unavailable Isai Parra MD Unavailable Shameka Ashton MD Unavailable Encounter Details Date Type Department Care Team Description 08/08/2018 Hospital [facility] Angella Rincon MD Encounter [facility] [address] 1[address] fl [address] [place] [address] [address] [phone] [place] [address] [phone] Social History Tobacco Use Types Packs/Day Years [...] by mouth 07/11/2018 mg tablet daily. Vit A,C,F-Sezi-Vxrudx Take 1 capsule by mouth (ICAPS AREDS) daily. 14,320-226-200 lgcx-ka-gthh cap VITAMIN D 50,000 unit Take 50,000 Units by 04/27/2018 capsule mouth twice weekly. as of this encounter Plan of Treatment Not on fileas of this encounter Procedures Procedure Name Priority Date/Time Associated Diagnosis Comments BONE MARROW 08/08/2018 Results for this 5:03 PM CDT procedure are in the results section. [facility] TEST Routine 08/08/2018 Results for this 4:30 PM CDT procedure are in the results section. [facility] REFERENCE TEST Routine 08/08/2018 Amyloidosis, unspecified Results [...] MARROW (08/08/2018 5:03 PM) PATHOLOGY REPORT [facility] [email or web address] Department of Pathology and Laboratory Medicine [address] [place] [address] Surgical Pathology Office:[phone] :[phone] SURGICAL PATHOLOGY REPORT NAME: NEGRITA MOORE SURG PATH #: [id number] MR #: [id number] ALT ID #: LOCATION: [facility] DATE OF PROCEDURE: 08/08/2018 AGE:77 SEX: M [...] of Pathology and Laboratory Medicine of the [facility] ([employer]) in compliance with CLIA'88 [...] of Pathology and Laboratory Medicine of the [facility].It has not been cleared or approved by the FDA.The FDA has determined that such clearance or approval is not necessary. Performing Organization Address City/State/Zipcode Phone Number [facility] RESULTS * [facility] TEST (08/08/2018 4:30 PM) [facility] PB[facility], NT Pro BNP, S REFERENCE LAB Info [place] Miscellaneous Result SEE COMMENTS 08/10/2018 11:18 REFERENCE [...] absence of renal failure. Test Performed by: [address] [address] Performing Organization Address City/[facility] Cent[facility] Phone Number REFERENCE LAB REFERENCE LAB See results for address. * [facility] REFERENCE TEST (08/08/2018 4:30 PM) Test NT Pro B Type Natriuretic REFERENCE LAB Peptide (BNP), Serum Reference Lab PERFORMED AT [facility] REFERENCE LAB LABORATORIES Results Ref Lab SEE [facility] TEST REFERENCE LAB Specimen Mail SERUM REFERENCE LAB Performing Organization Address City/[facility] Phone Number REFERENCE LAB REFERENCE LAB See results for address. * FLOW CYTOMETRY (08/08/2018 3:43 PM) PATHOLOGY REPORT [facility] www.[employer] Aric Broussard MD, Director of Flow Cytometry Laboratory Department of Pathology and Laboratory Medicine [address] [place] [address] Surgical Pathology Office:[phone] :[phone] FLOW CYTOMETRY REPORT NAME: NEGRITA MOORE SURG PATH #: [id number] MR #: [id number] SPECIMEN CLASS: BILLING #: [id number] ALT ID #:LOCATION: [id number] DATE OF PROCEDURE: [...] Plasma Cell Associated Markers (% Positive Cells): XK37=682; KX284=035; cyKappa=5; cyLambda=93; cyK/cyL ratio=0.1 Miscellaneous Markers (% Positive Cells): CD19=5; CD20=44; CD27=35; CD28=2; CD45=93; CD56=3; CD81=69; ZU227=85 Cell Viability (%):n/a Number of Cells Analyzed:1,103,218 Plasma Cells Detected:1.66 Total Number of Markers:15 Summary of Marker Combinations: 81/28/138/38/45/27/20; cyKappa/cyLambda/138/117/38/45 /56/19 This test was developed and its performance characteristics determined by the [facility] Flow Cytometry Laboratory.It has not been cleared [...]
--- OUTSIDE RECORDS SUMMARY | 2018-09-19 08:16 | XMS REPORT | Encounter Summary ---
Author Author [facility] Organization [facility] Address Unknown Phone Unavailable Care Team Providers Care Spiral Binder Name Role Phone Sae Gu MD PCP Sae Allen MD Unavailable Luisa Call DO Unavailable Nikita Armijo MD Unavailable Isai Parra MD Unavailable Shameka Ashton MD Unavailable Encounter Details Date Type Department Care Team Description 08/08/2018 Hospital [facility] Angella Rincon MD Amyloidosis, unspecified [facility]counter [facility] [address]st fl [address] [facility] [address] [place] [address] [place] [address] [phone] Social History Tobacco Use Types Packs/Day Years [...] by mouth 07/11/2018 mg tablet daily. Vit A,C,S-Qyur-Sxbmdu Take 1 capsule by mouth (ICAPS AREDS) daily. 14,320-226-200 ueuu-dg-aasp cap VITAMIN D 50,000 unit Take 50,000 [...] procedure are in the TEST results section. [facility] SURGICAL 08/08/2018 Amyloidosis (HCC) Results for this PATHOLOGY REFERENCE LAB 5:03 PM CDT procedure are in the TEST results section. [facility] TEST 08/08/2018 Amyloidosis (HCC) Results for this 5:03 PM CDT procedure are in the results section. in this encounter Results * MISCELLANEOUS SURGICAL PATHOLOGY REFERENCE LAB TEST (08/08/2018 5:03 PM) Test AMYLOID PROTEIN ID, MASS REFERENCE LAB SPECTROMETRY Reference Lab PERFORMED AT [facility] REFERENCE LAB LABORATORIES Results Ref Lab SEE [facility] TEST REFERENCE LAB Specimen Mail TISSUE, BLOCK, [id number] A1 REFERENCE LAB Performing Organization Address City/[facility] Phone Number REFERENCE LAB REFERENCE LAB See results for address. * MISCELLANEOUS SURGICAL PATHOLOGY REFERENCE LAB TEST (08/08/2018 5:03 PM) Test AMYLOID PROTEIN ID, REFERENCE LAB MICRODISSECTION, LASER CAPTURE Reference Lab PERFORMED AT [facility] REFERENCE LAB LABORATORIES Results Ref Lab SEE [facility] TEST REFERENCE LAB Specimen Mail TISSUE, BLOCK, [id number] A1 REFERENCE LAB Performing Organization Address City/[facility] Phone Number REFERENCE LAB REFERENCE LAB See results for address. * MISCELLANEOUS SURGICAL PATHOLOGY REFERENCE LAB TEST (08/08/2018 5:03 PM) Test Amyloid Protein REFERENCE LAB Identification, Paraffin Reference Lab PERFORMED AT [facility] REFERENCE LAB LABORATORIES Results Ref Lab SEE [facility] TEST REFERENCE LAB Specimen Mail Parrafin block REFERENCE LAB Performing Organization Address [facility] Phone Number REFERENCE LAB REFERENCE LAB See results for address. * [facility] TEST (08/08/2018 5:03 PM) [facility] AMPIP, Amyloid Protein ID, REFERENCE LAB Info Par, LC MS/MS [facility] Result SEE COMMENTS 08/17/2018 12:51 REFERENCE LAB PM Test ResultFlag UnitRefValue ------ Amyloid Protein ID, Par, LC MS/MS Interpretation Kidney, specimen for amyloid typing ([id number]; 07/07/2018): Involved by amyloidosis, AL (lambda)-type. A [...] the Department of Laboratory Medicine and Pathology, [facility] at . Report electronically signed by Shakeel Haynes M.D. Material Received A. [id number]: Kidney, [place] 1 block Disclaimer This test was developed and its performance characteristics determined by [facility] in a manner consistent with CLIA requirements. This test has not been cleared or approved by the U.S. Food and Drug Administration. Test Performed by: [address] [address] Performing Organization Address City/State/Zipcode Phone Number REFERENCE LAB REFERENCE LAB See results for address. in this encounter Visit Diagnoses Diagnosis Amyloidosis (HCC) Amyloidosis, unspecified Admitting Diagnoses Diagnosis Amyloidosis, unspecified (HCC) Amyloidosis, unspecified
--- OUTSIDE RECORDS SUMMARY | 2018-09-19 08:16 | XMS REPORT | Encounter Summary ---
Author Author [facility] Organization [facility] Address Unknown Phone Unavailable Care Team Providers Care Retail Project Merchandiser Name Role Phone Sae Gu MD PCP [...] (SHEBA) MD KAILA Ontiveros Required amyloidosis [address] (HCC) [address] [place] [address] Phone: Fax: Reason for Visit * Reason Comments Heme/Onc Care Encounter Details Date Type Department Care Team Description 08/18/2018 Office Visit [facility] Angella Rincon MD Neuropathy (Primary Dx); [facility] [address] [employer] ([place]) [place] [address] amyloidosis (HCC); [address] [phone] Protein[place], [place] [address] type [phone] Social History Tobacco Use Types Packs/Day Years [...] all paperwork requests. For Non-Urgent phone calls: [phone]- all calls left between 8 and 3:30 returned in the same business day or following morning For Urgent phone call needs: [phone]- if between 8 and 4, ask for Dr Rincon's CNCs Mary or Fanny to be paged; if after hours, ask for MD director compensation to be paged. For Scheduling needs: [phone] For primary care needs, such as blood [...] clinic appointment for review. [facility]LO[facility] [employer] Electrical Prospecting Engineer: Jess [phone] (Toll-Free) or [email or web address] If you are from, [place], [place], [place], [facility], [place] or anywhere else , know you are welcome.. in this encounter Progress Notes * Angella Rincon MD - 08/18/2018 12:00 PM CDT Formatting of this note may be different from the original. Date of Service: 08/18/2018 Subjective: Reason for Visit: Heme/Onc Care eKo Whitt is a 78 y.o. male.Pt is [...] hypoalbuminemia and proteinuria patient was sent to windows administrator at [place] who recommended a kidney biopsy that was [...] Take 20 mg by mouth daily. Vit A,C,I-Vqpv-Qytiet (ICAPS AREDS) 14,320-226-200 gyyv-pp-bmtn cap Take 1 capsule by mouth daily. [...] Fix-Serum NO PARAPROTEIN SEEN 08/08/2018 04:30 PM [place], FLC 1.20 08/08/2018 04:30 PM Lambda, FLC 4.03 (H) 08/08/2018 04:30 PM [place]/Lambda FLC 0.30 08/08/2018 04:30 PM B2 Microglobulin [...] skeltal survey showed osteopenia. Mass spect at [facility] for the kidney biopsy showed AL Amyloidosis. [...] his renal amyloidosis, Pt is following his windows administrator, will start him on treatment for his AL Amyloidosis I will send my note to pt PCP Dr. Gu, and Dr. Salvador Rincon M.D [employer] of Internal medicine Division of Hematologic Malignancies and Cellular Therapeutics Pager [phone] * Mary Gallego, MILLIE - 08/18/2018 12:00 PM CDT Formatting of this note may be different from the original. Last Amyloidosis Labs: 08/08 Pt presentation: Mass spectometry results show AL amyloidosis, lambda type; states will see [facility] on 10/03 for 2nd opinion with Dr Finn; lives in [place] , [place] Recommendations and discussion: Start Cytoxan, Velcade, Dexamethasone; [...] ; Nikita Armijo MD Neurology ; Pager: [phone]; Isai Parra MD Nephrology [place], [place]: [phone] Salvador Markham MD Hematology and Oncology ; Pager: [phone]; in this encounter Miscellaneous Notes * Patient [...]
--- OUTSIDE RECORDS SUMMARY | 2018-09-19 08:16 | XMS REPORT | Encounter Summary ---
Author Author [facility] Organization [facility] Address Unknown Phone Unavailable Care Team Providers Care Manual Equipment Mechanic Name Role Phone Sae Gu MD PCP Sae Allen MD Unavailable Luisa Call DO Unavailable Nikita Armijo MD Unavailable Isai Parra MD Unavailable Shameka Ashton MD Unavailable Reason for Visit * Reason Comments Heme/Onc Care Encounter Details Date Type Department Care Team Description 08/08/2018 Lab Only [facility] Angella Rincon MD Amyloidosis, unspecified [facility] [address] type (HCC); [place] [address] Personal history of other [address] [phone] [place] [address] circulatory system [phone] Social History Tobacco Use Types Packs/Day Years [...] results section. in this encounter Results * [facility] (08/08/2018 4:30 PM) Ref Lab Test Code [id number], Troponin T REFERENCE LAB REF LAB RESULT (MSAR) SEE NOTE REFERENCE LAB Test name Result Flag UnitsRefIntvl - Troponin-T 0.04 H ng/mL <=0.01 Performed by [employer], [address], [facility] [place] [address] [email or web address], Loi Wang MD, Lab. Director Performing Organization Address City/[facility]/Zipcode Phone Number REFERENCE LAB REFERENCE LAB See results for address. * MISC REFERENCE TEST (08/08/2018 4:30 PM) Test Troponin T REFERENCE LAB Reference Lab PERFORMED AT [facility] REFERENCE LAB LABORATORY-FOR REF RANGE SEE REPORT. Results Ref Lab SEE REF LAB RESULT REFERENCE LAB Specimen Mail SERUM REFERENCE LAB Performing Organization Address [facility]/Zipcode Phone Number REFERENCE LAB REFERENCE LAB See results for address. * BETA 2 MICROGLOBULIN (08/08/2018 4:30 PM) B2 Microglobulin 1.9 0.8 - 2.3 MG/L [facility] MAIN LAB Specimen Blood Performing Organization Address [facility] Centercode Phone Number [facility] MA[facility] [address] [place] [address] * BNP (B-TYPE NATRIURETIC PEPTI) (08/08/2018 4:30 PM) B Type Natriuretic 611.0 (H) 0 - 100 PG/ML MAIN LAB Peptide Specimen Blood Performing Organization Address [facility] Centerconm Phone Number [facility] MA[facility] [address] [place] [address] * CBC AND DIFF (08/08/2018 4:30 PM) White Blood Cells 7.0 4.5 - 11.0 K/UL [facility] RBC 4.18 (L) 4.4 - 5.5 [...] LAB Manual Specimen Blood Performing Organization Address City/[facility]/Zipcode Phone Number [facility] [address] [place] [address] * COMPREHENSIVE METABOLIC PANEL (08/08/2018 4:30 PM) [...] for questions. Specimen Blood Performing Organization Address City/[facility]/Zipcode Phone Number [facility] [address] [place] [address] * ELECTROPHORESIS-SERUM PROTEIN (08/08/2018 4:30 PM) Total [...] Pathologist Signature INTERPRETED BY LUCERO RANGEL M.D. [facility] By the PATH SIGNATURE ABOVE, I attest that I have personally formulated the final interpretation expressed in this report and that the above diagnosis is based upon my examination of the slides and/or other material indicated in this report. Specimen Blood Performing Organization Address City/[facility]/Zipcode Phone Number [facility] [address] [place] [address] * IMMUNOGLOBULINS-IGA,IGG,IGM (08/08/2018 4:30 PM) IgG 277 (L) 762 - 1,488 MG/DL [facility] IgA 46 (L) 70 - 390 MG/DL [facility] IgM 31 (L) 38 - 328 MG/DL [facility] Specimen Blood Performing Organization Address City/[facility]/Zipcode Phone Number [facility] [address] [place] [address] * IMMUNOFIXATION, SERUM (IFES) (08/08/2018 4:30 PM) Immuno Fix-Serum NO PARAPROTEIN SEEN [facility] Pathologist Signature INTERPRETED BY LUCERO RANGEL M.D. [facility] By the PATH SIGNATURE ABOVE, I attest that I have personally formulated the final interpretation expressed in this report and that the above diagnosis is based upon my examination of the slides and/or other material indicated in this report. Specimen Blood Performing Organization Address [facility]/Zipcode Phone Number [facility] [address] [place] [address] * KAPPA/LAMBDA FREE LIGHT CHAINS (08/08/2018 4:30 PM) [place], FLC 1.20 0.33 - 1.94 MG/DL [facility] Comment: Freelite results should always be interpreted in conjunction with other laboratory tests and clinical evidence.The possibility of Antigen Excess exists and can cause Immunoassays to under estimate very high concentrations of antigen. Any discordant results should be discussed with Dr. Montaño. Lambda, FLC 4.03 (H) 0.57 - 2.63 MG/DL MAIN LAB [place]/Lambda FLC 0.30 0.26 - 1.65 MAIN LAB Specimen Blood Performing Organization Address [facility] Phone Number MAIN LAB [address] [place] [address] * LDH-LACTATE DEHYDROGENASE (08/08/2018 4:30 PM) Lactate Dehydrogenase 234 (H) 100 - 210 U/L [facility] Specimen Blood Performing Organization Address [facility] Centercode Phone Number [facility] [address] [place] [address] * PROTIME INR (PT) (08/08/2018 4:30 PM) INR 0.9 0.8 - 1.2 MAIN LAB Specimen Blood Performing Organization Address [facility] Phone Number MAIN LAB [address] [place] [address] * PTT (APTT) (08/08/2018 4:30 PM) APTT 28.9Comment: NOTE NEW 20.0 - 36.0 SEC MAIN LAB REFERENCE RANGES Specimen Blood Performing Organization Address [facility] Phone Number [facility] [address] [place] [address] in this encounter Visit Diagnoses Diagnosis Amyloidosis, unspecified type (HCC) Personal history of other diseases of the circulatory system
--- OUTSIDE RECORDS SUMMARY | 2018-09-19 08:16 | XMS REPORT | Encounter Summary ---
Author Author [facility] Organization [facility] Address Unknown Phone Unavailable Care Team Providers Care Siding Stapler Name Role Phone Sae Gu MD PCP Sae Allen MD Unavailable Luisa Call DO Unavailable Nikita Armijo MD Unavailable Isai Parra MD Unavailable Shameka Ashton MD Unavailable Reason for Visit * Reason Comments Heme/Onc Care Encounter Details Date Type Department Care Team Description 08/08/2018 Procedure visit [facility] Angella Rincon MD Amyloidosis, unspecified [facility] [address] [facility] type (HCC) (Primary Dx ); [place] [address] Multiple myeloma, [address] [phone] [place] [address] unspecified (HCC) [phone] [place] Herbert, PASSENGER SERVICE AGENT-ACCT EXEC [address] [facility] [place] [address] [phone] Social History Tobacco Use Types Packs/Day Years [...] marked as necessary. Physician/Surgeon: Madeleine Dunn APRN Marine Animal Trainer; Beata Loya Scrub: Distribution Driver: Lucinda Bingham Prep Area: Left iliac crest [...] Marrow - Bone Marrow Performing Organization Address City/[facility]/Zipcode Phone Number MAIN LAB [address] [place] [address] * FE STAIN (08/08/2018 3:43 PM) Bone Marrow FE SEE PATHOLOGY REPORT MAIN LAB Specimen Bone Marrow - Bone Marrow Performing Organization Address City/[facility]/Zipcode Phone Number MAIN LAB [address] [place] [address] * CHROMOSOMES FISH DNA PROBE (08/08/2018 3:43 PM) Chromosomes Fish DNA SEE OFFICE MAIL CLERK FOR REPORT MAIN LAB Probe Specimen Bone Marrow Performing Organization Address City/[facility]/Zipcode Phone Number MAIN LAB [address] [place] [address] * CHROMOSOMES BONE MARROW (08/08/2018 3:43 PM) Chromosomes Bone Marrow SEE OFFICE MAIL CLERK FOR REPORT MAIN LAB Specimen Bone Marrow Performing Organization Address City/[facility] Phone Number MAIN LAB [address] [place] [address] * BONE MARROW BIOPSY (08/08/2018 3:43 PM) Bone Marrow Bx SEE PATHOLOGY REPORT MAIN LAB Specimen Bone Marrow - Bone Marrow Performing Organization Address [facility] Phone Number MAIN LAB [address] [place] [address] * BONE MARROW ASP (08/08/2018 3:43 PM) Bone Marrow Asp SEE PATHOLOGY REPORT MAIN LAB Specimen Bone Marrow - Bone Marrow Performing Organization Address [facility] Phone Number [facility] [address] [place] [address] * BIOPSY BONE MARROW PROCEDURE (08/08/2018 3:00 [...] procedure well. CHELSEY Loja Performing Organization Address [facility]/State/Zipcode Phone Number OTHER OUTSIDE LAB in this encounter Visit Diagnoses Diagnosis Amyloidosis, unspecified type (HCC) - Primary Multiple myeloma, remission status unspecified (HCC)
--- OUTSIDE RECORDS SUMMARY | 2018-09-19 08:16 | XMS REPORT | Encounter Summary ---
Author Author [facility] Organization [facility] Address Unknown Phone Unavailable Care Team Providers Care Edging Machine Setter Name Role Phone Sae Gu MD PCP [...] Ngoc Ontiveros MD MD Required myeloma, [address] remission status [address] [place] [address] unspecified [place], [place] ([facility]) [phone] Phone: Fax: Scheduling Instructions Please try to cluster appointments with other hospital/[place] appointments if possible. Patient lives 3 hours away. * Consult, Test & Treat (Routine) Status Reason Specialty Diagnoses / Referred By Referred To Procedures Contact Contact New Request Specialty Diagnoses Angella Rincon Morie, MD Services Ngoc Ontiveros MD [address] Required myeloma, [address] [place], [place] remission status [address] [address] unspecified [place], [place] Phone: [facility]) [address] Phone: Encounter Details Date Type Department Care Team Description 08/16/2018 Orders Only [facility] Angella Rincon MD Multiple myeloma, [facility] [address] remission [place] [address] unspecified (HCC) [address] [facility] [phone] (Primary Dx) [place] [address] [phone] Social History Tobacco Use Types Packs/Day Years [...]
--- OUTSIDE RECORDS SUMMARY | 2018-09-19 08:17 | XMS REPORT | Encounter Summary ---
Author Author [facility] Organization [facility] Address Unknown Phone Unavailable Care Team Providers Care Framing And Hanging Name Role Phone Sae Gu MD PCP Sae Allen MD Unavailable Luisa Call DO Unavailable Nikita Armijo MD Unavailable Isai Parra MD Unavailable Shameka Ashton MD Unavailable Salvador Markham MD 3 Salvador Markham MD Unavailable Encounter Details Date Type Department Care Team Description 07/08/2018 Pharmacy Visit [facility] [address] [place] [address] Social History Tobacco Use Types Packs/Day Years Used Date Never Smoker Smokeless Tobacco: Never Used Alcohol Use Drinks/Week oz/Week Comments Yes Very Rare Sex Assigned at Date Recorded Not on file as of this encounter Plan of Treatment Not on fileas of this encounter Visit Diagnoses Not on filein this encounter
--- OUTSIDE RECORDS SUMMARY | 2018-09-19 08:17 | XMS REPORT | Encounter Summary ---
Author Author [facility] Organization [facility] Address Unknown Phone Unavailable Care Team Providers Care Lens Cutter Name Role Phone Sae Gu MD PCP Sae Allen MD Unavailable Luisa Call DO Unavailable Nikita Armijo MD Unavailable Isai Parra MD Unavailable Shameka Ahston MD Unavailable Reason for Visit * Reason Comments Navigation Assessment Encounter Details Date Type Department Care Team Description 08/05/2018 Telephone [facility] Angella Rincon MD Navigation Assessment [facility] Exam [id number] [facility] [phone] [place] [address] [phone] Social History Tobacco Use Types Packs/Day Years [...] Patient Name: Keo Whitt : 1940 Insurance: Medicare/[facility] Appointment Info: Future Appointments Date Time Provider Department Center 08/08/2018 1:20 PM Angella Rincon MD [facility] Exam 08/30/2018 1:00 PM NON-IMAGING PROCEDURE SUZI [...] Amyloidosis. Comments: See notes from Neurologist and Utility Repairer. Can be found in O2. in this encounter Plan of Treatment Not on fileas of this encounter Visit Diagnoses Not on filein this encounter
--- OUTSIDE RECORDS SUMMARY | 2018-09-19 08:17 | XMS REPORT | Encounter Summary ---
Author Author [facility] Organization [facility] Address Unknown Phone Unavailable Care Team Providers Care Ferryboat Deckhand Name Role Phone Sae Gu MD PCP Sae Allen MD Unavailable Luisa Call DO Unavailable Nikita Armijo MD Unavailable Isai Parra MD Unavailable Shameka Ashton MD Unavailable Reason for Referral * Consult, Test & Treat (Routine) Status Reason Specialty Diagnoses / Referred By Referred To Procedures Contact Contact Closed Specialty Diagnoses Angella Rincon Services Weston Briceño MD Required unspecified type [address] [place] [address] Reason for Visit * Reason Comments Heme/Onc Care * Consult, Test & Treat (Routine) Status Reason Specialty Diagnoses / Referred By Referred To Procedures Contact Contact No Auth Needed Hematology / Diagnoses [facility]ckenzie [facility] Sae Briceño III, A, MD referral Dr. BRIGHT [address] Harriet Gu [address] [place] [id number] [place], [place] [address] [address] Phone: NEW PATIENT [phone] Encounter Details Date Type Department Care Team Description 08/08/2018 Office Visit [facility] Angella Rincon MD Multiple myeloma, [facility] Exam [address] [facility] remission status Cancer Center [place], [place] unspecified (HCC) [address] [phone] (Primary Dx); [place], [place] Amyloidosis, unspecified [phone] type (HCC); Personal history of other diseases [...] Team: Dr Angella Matute aPRN (Nurse Practitioner) Fnany Quiroga, Clinical Nurse Coordinator Mary Gallego, Clinical Nurse Coordinator Please provide 3-5 business days advanced notice for all refill requests. Please provide 5 business days advanced notice for all paperwork requests. For Non-Urgent phone calls: [phone]- all calls left between 8 and 3:30 returned in the same business day or following morning For Urgent phone call needs: [phone]- if between 8 and 4, ask for Dr Rincon's CNCs Mary or Fanny to be paged; if after hours, ask for MD transportation maintenance operator to be paged. For Scheduling needs: [phone] For primary care needs, such as blood [...] hypoalbuminemia and proteinuria patient was sent to recycling crew supervisor at [facility] who recommended a kidney biopsy that was [...] Take 20 mg by mouth daily. Vit A,C,I-Cifp-Qygach (ICAPS AREDS) 14,320-226-200 qkgw-he-plum cap Take 1 capsule by mouth daily. [...] Fix-Serum NO PARAPROTEIN SEEN 08/08/2018 04:30 PM Pulcifer, FLC 1.20 08/08/2018 04:30 PM Lambda, FLC 4.03 (H) 08/08/2018 04:30 PM Pulcifer/Lambda FLC 0.30 08/08/2018 04:30 PM B2 Microglobulin [...] will send the kidney biopsy slides to [facility] for Mass spect to evaluate the type [...] care for the patient Angella Rincon M.D Weigher Operator of Internal medicine Division of Hematologic Malignancies and Cellular Therapeutics Pager [phone] * Mary Gallego RN - 08/08/2018 1:20 [...] MD Neurology 08/08/2018 End 08/08/18 ; Pager: [phone]; Isai Parra MD Nephrology 08/08/2018 End 08/08/18 [facility] [phone] in this encounter Miscellaneous Notes * Assessment [...] will send the kidney biopsy slides to [facility] for Mass spect to evaluate the type [...] B2 Microglobulin 1.9 0.8 - 2.3 MG/L [facility] Specimen Blood Performing Organization Address City[facility] Phone Number [facility] [address] [phone] * BNP (B-TYPE NATRIURETIC PEPTI) (08/08/2018 4:30 PM) B Type Natriuretic 611.0 (H) 0 - 100 PG/ML [facility] Peptide Specimen Blood Performing Organization Address [facility] Phone Number [facility] [address] [place] [address] * CBC AND DIFF (08/08/2018 4:30 PM) White Blood Cells 7.0 4.5 - 11.0 K/UL [facility] RBC 4.18 (L) 4.4 - 5.5 [...] Specimen Blood Performing Organization Address [facility] Phone Number [facility] [address] [place] [address] * COMPREHENSIVE METABOLIC PANEL (08/08/2018 4:30 PM) [...] for questions. Specimen Blood Performing Organization Address City/[facility]/Zipcode Phone Number [facility] [address] [place] [address] * ELECTROPHORESIS-SERUM PROTEIN (08/08/2018 4:30 PM) Total Protein-SEP 4.0 (L) 6.0 - 8.0 G/DL [facility] Albumin % 55.7 48 - 68 [...] LAB HYPOGAMMAGLOBULINEMIA Pathologist Signature INTERPRETED BY LUCERO RANEGL M.D. [facility] By the PATH SIGNATURE ABOVE, I attest that I have personally formulated the final interpretation expressed in this report and that the above diagnosis is based upon my examination of the slides and/or other material indicated in this report. Specimen Blood Performing Organization Address [facility] Phone Number [facility] [address] [place] [address] * IMMUNOGLOBULINS-IGA,IGG,IGM (08/08/2018 4:30 PM) IgG 277 (L) 762 - 1,488 MG/DL [facility] IgA 46 (L) 70 - 390 MG/DL [facility] IgM 31 (L) 38 - 328 MG/DL [facility] Specimen Blood Performing Organization Address [facility] Phone Number [facility] [address] [place] [address] * IMMUNOFIXATION, SERUM (IFES) (08/08/2018 4:30 PM) Immuno Fix-Serum NO PARAPROTEIN SEEN [facility] Pathologist Signature INTERPRETED BY LUCERO RANGEL M.D. [facility] By the PATH SIGNATURE ABOVE, I attest that I have personally formulated the final interpretation expressed in this report and that the above diagnosis is based upon my examination of the slides and/or other material indicated in this report. Specimen Blood Performing Organization Address [facility] Phone Number [facility] [address] [place] [address] * KAPPA/LAMBDA FREE LIGHT CHAINS (08/08/2018 4:30 PM) Pulcifer, FLC 1.20 0.33 - 1.94 MG/DL [facility] Comment: Freelite results should always be interpreted in conjunction with other laboratory tests and clinical evidence.The possibility of Antigen Excess exists and can cause Immunoassays to under estimate very high concentrations of antigen. Any discordant results should be discussed with Dr. Montaño. Lambda, FLC 4.03 (H) 0.57 - 2.63 MG/DL [facility] Pulcifer/Lambda FLC 0.30 0.26 - 1.65 [facility] Specimen Blood Performing Organization Address [facility] Phone Number [facility] [address] [place] [address] * LDH-LACTATE DEHYDROGENASE (08/08/2018 4:30 PM) Lactate Dehydrogenase 234 (H) 100 - 210 U/L [facility] Specimen Blood Performing Organization Address [facility] Phone Number [facility] [address] [place] [address] * PROTIME INR (PT) (08/08/2018 4:30 PM) INR 0.9 0.8 - 1.2 [facility] Specimen Blood Performing Organization Address [facility] Phone Number [facility] [address] [place] [address] * PTT (APTT) (08/08/2018 4:30 PM) APTT 28.9Comment: NOTE NEW 20.0 - 36.0 SEC [facility] REFERENCE RANGES Specimen Blood Performing Organization Address [facility] Phone Number [facility] [address] [place] [address] * CHROMOSOMES FISH DNA PROBE (08/08/2018 3:43 PM) Chromosomes Fish DNA SEE SENIOR TELECOMMUNICATIONS CONSULTANT FOR REPORT [facility] Probe Specimen Bone Marrow Performing Organization Address [facility] Phone Number [facility] [address] [place] [address] * CHROMOSOMES BONE MARROW (08/08/2018 3:43 PM) Chromosomes Bone Marrow SEE SENIOR TELECOMMUNICATIONS CONSULTANT FOR REPORT [facility]IN [facility] Specimen Bone Marrow Performing Organization Address [facility] Phone Number [facility] [address] [place] [address] * LEUKEMIA/LYMPHOMA PNL, BONE MARROW (08/08/2018 3:43 PM) Leuk/Lymph Interpretation SEE PATHOLOGY REPORT MAIN LAB Specimen/LLM BONE MARROW [facility] Specimen Bone Marrow - Bone Marrow Performing Organization Address City/[facility]/Zipcode Phone Number [facility] [address] [place] [address] * FE STAIN (08/08/2018 3:43 PM) Bone Marrow FE SEE PATHOLOGY REPORT MAIN LAB Specimen Bone Marrow - Bone Marrow Performing Organization Address City/[facility]/Zipcode Phone Number MA[facility] [address] [place] [address] * BONE MARROW BIOPSY (08/08/2018 3:43 PM) Bone Marrow Bx SEE PATHOLOGY REPORT MAIN LAB Specimen Bone Marrow - Bone Marrow Performing Organization Address [facility]/Zipcode Phone Number MA[facility] [address] [place] [address] * BONE MARROW ASP (08/08/2018 3:43 PM) Bone Marrow Asp SEE PATHOLOGY REPORT MAIN LAB Specimen Bone Marrow - Bone Marrow Performing Organization Address [facility] Phone Number [facility] [address] [place] [address] * METASTATIC SKELETAL SURVEY (08/08/2018 3:06 PM) [...] procedure well. CHELSEY Loja Performing Organization Address City/[facility] Phone Number OTHER OUTSIDE LAB in this encounter Visit Diagnoses Diagnosis Multiple myeloma, remission status unspecified (HCC) - Primary Amyloidosis, unspecified type (HCC) Personal history of other diseases of the circulatory system Neuropathy Mononeuritis of unspecified site Proteinuria, unspecified type
--- OUTSIDE RECORDS SUMMARY | 2018-09-19 08:17 | XMS REPORT | Encounter Summary ---
Author Author [facility] Organization [facility] Address Unknown Phone Unavailable Care Team Providers Care School Occupational Therapist Name Role Phone Sae Gu MD PCP Reason for Referral * Radiology Services Status Reason Specialty Diagnoses / Referred By Referred To Procedures Contact Contact No Auth Needed Radiology Diagnoses Doctor [facility] Ir Other [facility] 2nd proteinuria fl P [address] [place], [place] RENAL [place] [address] [place] RENAL BIOP[place] Phone: [employer] [phone] TROCAR/NEEDLE * Radiology Services Status Reason Specialty Diagnoses / Referred By Referred To Procedures Contact Contact No Auth Needed Radiology Diagnoses Doctor [facility] Ir Other [facility] 2nd proteinuria fl P [address] [place], [place] [address] [place] RENAL BIOP[place] Phone: [employer] [phone] TROCAR/NEEDLE Reason for Visit * Auth/Cert Status Reason Specialty Diagnoses / Referred By Referred To Procedures Contact Contact Diagnoses Other proteinuria P roteinuria P rocedures IR RENAL BIOPSY Encounter Details Date Type Department Care Team Description 07/07/2018 Hospital Renal/Organ Transplant Sae Gu III, Proteinuria - Encounter Main [facility] 6th fl Unit 07/08/[address] [place] [address] [place], [place] [id number] Zahraa Saleh MD [address] [facility] [address] [place] [address] [phone] Ed Dunlap DO [address] [facility] [address] [place] [address] [phone] Serena Escamilla RN B arger, Stephanie, RT(R)(),LRT Juancho Saez MD [address] [place] [address] [phone] Social History Tobacco Use Types Packs/Day Years [...] 07/08/2018 Attending Physician: Ed Terrazas DO Service: [facility] N- [id number] Physician Summary completed by: Ed [...] next day. He will follow-up with his Electric Switch Tester in [place], [place] for the pathology results. Condition at [...] HOURS (8:00 AM - 4:30 PM): Call [phone] and asked to be transferred to your discharge attending physician. - AFTER BUSINESS HOURS (4:30 PM - 8:00 AM, on weekends, or holidays): Call [phone] and ask the directory operator to page the on-call doctor for the discharge attending physician. Discharging attending physician: ED TERRAZAS [[id number]] Current Discharge Medication List CONTINUE these medications [...] 14 days. PRESCRIPTION TYPE: Historical Med Vit A,C,A-Waic-Kzxqiu (ICAPS AREDS) 14,320-226-200 kgci-os-tzdm cap Take 1 capsule by mouth daily. [...] NI-Autonomic Testing with Tilt with NON-IMAGING PROCEDURE [facility] Cardiology ([facility]) [facility] [facility] [address] Jul 21, 2018 9:40 AM CDT Return Patient with Nikita Armijo MD [facility] ([facility]) [facility] On Aging [address] [facility] [address] Pending items needing follow up: Renal [...] increased shortness of breath Sudden chest pain Bwvplbz027.4F orhigher, orchills Increasing redness, tenderness, or swelling [...] or concerns related to the procedure, call [phone] for Wednesday-Wednesday 7-5. After-hours and weekends, please call [phone] and ask for the Interventional Gateman on-call. in this encounter Medications at Time [...] PEN as directed every 14 days. Vit A,C,A-Heys-Tffegh Take 1 capsule by mouth (ICAPS AREDS) daily. 14,320226-200 stbp-pl-kxko cap VITAMIN D 50,000 unit Take 50,000 [...] pending , he will follow-up with his Electric Switch Tester in [place], [place] for this. Discharge to home today in stable condition. * Theodora Matthews RN - 07/07/2018 6:51 PM CDT This RN gave report to Unit 64 RN taking patient. This RN answered all questions and concerns. * Theodora Matthews RN - 07/07/2018 1:47 PM CDT Spoke with Dr. Shaffer regarding admitting patient post procedure. Physician will see patient in [place]. * Serena Becerril, RN - 07/07/2018 1:16 PM CDT Procedure completed after planer operator / grader held pressure for 10 minutes. Patient is awake and calm and alert. * Serena Becerril, RN - 07/07/2018 12:47 PM CDT Anesthesia staff is present and assume all responsibility for VS, sedations, meds and airway as needed. * Yordan Cespedes RN - 07/07/2018 11:13 AM CDT This RN contacted Fior, the pt's diffusion operator RN to request pt's medical record for [...] - Follows with Dr. Jas Parra at [facility] - Kidney function continues to be stable [...] Pause - On an event monitor per diffusion operator at [place] - Last episode related to vagal tone [...] 50,000 Units by mouth twice daily. Vit A,C,I-Jciz-Rjruuo (ICAPS AREDS) 14,320-226-200 fqhx-ir-hjgy cap Unknown Yes No Sig: Take by [...] MD General Internal Medicine * Jazmyn Kidd, MSN,PRICING LEAD - 07/07/2018 10:13 AM CDT Formatting of this note may be different from the original. Pre Procedure History and Physical/Sedation Plan Procedure Date: 07/07/2018 Planned Procedure(s): [place] kidney biopsy. Indication for exam: Proteinuria. Chief [...] to , patient gave a note from diffusion operator in [place] from 07/06 saying patient had 6 second pause when wearing cafeteria monitor 06/28. They related this to pt having full bladder. Discussed with Dr. Soler and will call diffusion operator for cardiac clearance and have anesthesia provide sedation during the case. Spoke with MILLIE Childress in [place] that got clearance for procedure from both Dr. Cantu (primary diffusion operator) and Dr. Cano (EP diffusion operator). Spoke with Dr. Soler who is ok proceeding with anesthesia. Jazmyn Kidd, MSN,PRICING LEAD Pager [phone] in this encounter Miscellaneous Notes * Case [...] this added. NCM told pt and about [employer] to use in the meantime. No NCM needs identified. Plan: Discharge home today. Pt's to drive pt home. Plan: CM Assessment, Discharge Planning for Home Anticipated Patient Address/Phone [address] [phone] (home) Emergency Contact Extended Emergency Contact Information Primary Emergency Contact: Moore,Ashley [facility] Relation: Spouse Healthcare Directive Healthcare Directive: Yes, patient has a healthcare directive Type of Healthcare Directive: Durable power of ip attorney for healthcare Location of Healthcare Directive: Patient does not have it with him/her Would patient like to fill out a (a new) Healthcare Directive?: No, patient declined Psych Advance Directive (Psych unit only): No, patient does not have a Psych Advance Directive Transportation Does the patient need discharge transport arranged?: No Transportation Name, Phone and Availability #1: Pt's Ashley [phone] Does the patient use Medicaid Transportation?: No [...] him about a month ago. ? Pharmacy [facility] - [place], [place] - [address] [place] [address] ? Durable Medical Equipment Durable Medical Equipment [...] Outpatient Therapy PT: No OT: No ? Correction Facility/Usp SNF: No NH: No ? Inpatient Rehab IPR: No ? Long-Term Acute Care Hospital LTACH: No ? Acute Hospital Stay Acute Hospital Stay: No DAVID Shah RN Nurse Lamp Mechanic Vo[employer] Text Phone: [phone] Pager: [phone] * Care Plan - Nini Puentes RN - 07/08/2018 12:49 PM CDT Problem: Falls, High Risk of Goal: Absence of falls-Adult Patient Outcome: Goal Achieved Date Met: 07/08/18 Pt was absent of falls during hospital stay. Fall risk bundle was in place. * Care Coordination-Inpatient - Luh Soto MD - 07/08/2018 3:55 AM CDT Pt assigned to [facility], please page [phone] prior to 8 am on 07/08/18, then page [phone] if questions * Procedures (Immed Post or [...] CDT procedure are in the results section. [facility] SESAY TEST Routine 07/07/2018 Results for this 8:00 PM CDT procedure are in the results section. [facility] REFERENCE TEST Routine 07/07/2018 Other proteinuria Results [...] Address City/State/Zipcode Phone Number [facility] [address] [place] [address] * COMPREHENSIVE METABOLIC PANEL (07/08/2018 5:26 AM) [...] Organization Address City/State/Zipcode Phone Number [facility] [address] [place] [address] * CBC (07/08/2018 5:26 AM) White Blood Cells 6.9 4.5 - 11.0 [facility] RBC 3.95 (L) 4.4 - 5.5 M/UL [facility] Hemoglobin 12.7 (L) 13.5 - 16.5 [...] LAB MPV 9.2 7 - 11 FL [facility] Specimen Blood Performing Organization Address City/State/Zipcode Phone Number [facility] [address] [place] [address] * [facility] SESAY TEST (07/07/2018 8:00 PM) [facility], Phospholipase A2 REFERENCE LAB Info Receptor AB, S [facility] Result SEE COMMENTS 07/12/2018 08:53 REFERENCE LAB AM Test Result FlagUnit RefValue ------ Phospholipase A2 Receptor AB, S Phospholipase A2 Receptor IFA, SNegative Negative ADDITIONAL INFORMATION This test was developed and its performance characteristics determined by [facility] in a manner consistent with CLIA requirements. This test has not been cleared or approved by the U.S. Food and Drug Administration. Phospholipase A2 Receptor NIMISHA,<2 RU/mL S REFERENCE VALUE - <14 RU/mL: Negative 14-19 RU/mL: Borderline >19 RU/mL: Positive Test Performed by: [address] [address] Performing Organization Address City/[facility] Phone Number REFERENCE LAB REFERENCE LAB See results for address. * [facility] REFERENCE TEST (07/07/2018 8:00 PM) Test Phospholipase A2 Receptor REFERENCE LAB Antibodies, Serum Reference Lab PERFORMED AT [facility] Results Ref Lab SEE [facility] TEST REFERENCE LAB Specimen Mail SERUM REFERENCE LAB Performing Organization Address [facility] Phone Number REFERENCE LAB REFERENCE LAB See results for address. * CBC (07/07/2018 8:00 PM) White Blood Cells 7.0 4.5 - 11.0 K/UL [facility] RBC 3.98 (L) 4.4 - 5.5 M/UL [facility] Hemoglobin 13.3 (L) 13.5 - 16.5 GM/DL [facility] Hematocrit 37.3 (L) 40 - 50 % [facility] MCV 93.7 80 - 100 FL [facility] MCH 33.4 26 - 34 PG [facility] MCHC 35.6 32.0 - 36.0 G/DL [facility] RDW 14.4 11 - 15 % [facility] Platelet Count 188 150 - 400 K/UL [facility] MPV 9.2 7 - 11 FL [facility] Specimen Blood Performing Organization Address City/[facility]/Zipcode Phone Number [facility] [address] [place] [address] * PROTIME INR (PT) (07/07/2018 8:00 PM) INR 1.0 0.8 - 1.2 [facility] Specimen Blood Performing Organization Address [facility] Phone Number [facility] [address] [place] [address] * SURGICAL PATHOLOGY (07/07/2018 2:03 PM) PATHOLOGY REPORT [facility] [email or web address] Department of Pathology and Laboratory Medicine [address] [place] [address] Surgical Pathology Office:[phone] :[phone] SURGICAL PATHOLOGY REPORT NAME: NEGRITA MOORE SURG PATH #: [id number] MR #: [id number] SPECIMEN CLASS: SR BILLING #: [id number] ALT ID #:LOCATION: DATE OF PROCEDURE: 07/07/2018 AGE:77 SEX: M DATE RECEIVED: 07/07/2018 : 1940TIME RECEIVED: 14:03 PHYSICIAN: JAS PARRA MD DATE OF REPORT: 07/20/2018 COPY TO:DATE OF PRINTIN07/20/2018 ############################## ############################## ############ Final Diagnosis: A, B and C. Kidney ([place]), core needle biopsy: Amyloidosis. Attestation: By this signature, I attest that I have personally formulated the final interpretation expressed in this report and that the above diagnosis is based upon my examination of the slides and/or other material indicated in this report. +++ +++ ksw/07/08/2018 ############################## ############################## ############ Material Received: A: [place] Kidney with Protocol B: Immunofluorescence ([place])-[place] Kidney C: Electron microscopy (glutaraldehyde)-[place] ( mailed out to [facility] for processing) History: 77-year-old male with history [...] and its performance characteristics determined by the [facility] pathology laboratory. It has not [...] Description: A. Received in formalin labeled "left [place] renal biopsy" is a 1.1 cm in length by 0.1 in diameter core of lombardo-red tissue . The specimen is submitted entirely in cassette A1. (ab) B. Received in Renan's solution labeled "left [place] renal biopsy-IF" is a 0.9 x 0.1 x 0.1 cm core of lombardo-red tissue. The specimen is submitted entirely for immunofluorescence studies.(ab) C. Received in saline and transferred to formalin labeled "left [place] renal biopsy-EM" is a 0.8 x 0.1 x 0.1 cm core of lombardo-red tissue. The specimen is submitted entirely in sent to [facility] for electron microscopy studies.(ab) ab/07/07/2018 If immunohistochemical [...] PM. Narrative Performed At Ultrasound Guided Percutaneous [place] Kidney Biopsy [facility] RES[facility] INDICATION:Renal failure MARINE DIESEL TECHNICIAN:Nathan Soler M.D. DEVICE:18g biopsy gun through 17g needle guide [id number] gauge cores COMPLICATIONS:None immediate TECHNIQUE: The risks, [...] 07/11/2018 4:29 PM CDT Ultrasound Guided Percutaneous [place] Kidney Biopsy INDICATION: Renal failure MARINE DIESEL TECHNICIAN: Nathan Soler M.D. DEVICE: 18g biopsy gun [...]
--- OUTSIDE RECORDS SUMMARY | 2018-09-19 08:17 | XMS REPORT | Encounter Summary ---
Author Author [facility] Organization [facility] Address Unknown Phone Unavailable Care Team Providers Care Corporate Director Of Human Resources Name Role Phone Sae Gu MD PCP Reason for Visit * Reason Comments General Question Encounter Details Date Type Department Care Team Description 07/19/2018 Telephone [facility] Nikita Armijo MD General Question Physicians-Neurology [address] [facility] [place] [address] [address] [facility] [phone] [place] [address] Social History Tobacco Use Types [...]
--- OUTSIDE RECORDS SUMMARY | 2018-09-19 08:17 | XMS REPORT | Encounter Summary ---
Author Author [facility] Organization [facility] Address Unknown Phone Unavailable Care Team Providers Care Manager Of Distribution Name Role Phone Sae Gu MD PCP Reason for Visit * Reason Comments Follow-up Phone Call Encounter Details Date Type Department Care Team Description 07/08/2018 Telephone Cardiovascular Medicine Fior Thomas RN Follow-up Phone Call [address] [place] [address] Social History Tobacco Use Types [...] scheduled for tilt table today at 1pm ([facility]) Room [id number] 1 please call patient's mobile number. Thanks Ava in this encounter Plan of Treatment Not on fileas of this encounter Visit Diagnoses Not on filein this encounter
--- OUTSIDE RECORDS SUMMARY | 2018-09-19 08:17 | XMS REPORT | Encounter Summary ---
Author Author [facility] Organization [facility] Address Unknown Phone Unavailable Care Team Providers Care Miniature Set Constructor Name Role Phone Sae Gu MD PCP Encounter Details Date Type Department Care Team Description 07/11/2018 Hospital Clinlab Albino Terrazas DO Other proteinuria Encounter [facility] 1st fl [address] [place] [address] [place] [address] [phone] Social History Tobacco Use Types Packs/Day Years [...] by mouth 07/11/2018 mg tablet daily. Vit A,C,R-Znaq-Vvaztq Take 1 capsule by mouth (ICAPS AREDS) daily. 14,320-226-200 giwi-mw-fczu cap VITAMIN D 50,000 unit Take 50,000 [...] results section. in this encounter Results * [facility] TEST (07/11/2018 3:35 PM) [facility] EMTO, Electron Microscopy REFERENCE LAB Info technical only [facility] Result SEE COMMENTS 07/15/2018 01:04 REFERENCE LAB PM Test ResultFlag UnitRefValue ------ Electron Microscopy, Technical Only Electron Microscopy Testing Performed Test Performed by: [address] [address] Performing Organization Address City/State/Zipcode Phone Number REFERENCE LAB REFERENCE LAB See results for address. in this encounter Visit Diagnoses Diagnosis Other proteinuria Admitting Diagnoses Diagnosis Other proteinuria
--- OUTSIDE RECORDS SUMMARY | 2018-09-19 08:18 | XMS REPORT | Encounter Summary ---
Author Author [facility] Organization [facility] Address Unknown Phone Unavailable Care Team Providers Care Regional Economic Liaison Name Role Phone Sae Gu MD PCP Reason for Referral * Radiology Services Status Reason Specialty Diagnoses / Referred By Referred To Procedures Contact Contact No Auth Needed Radiology Diagnoses Doctor, [facility] Ir Other Miscellaneous [facility] 2nd proteinuria fl P [address] [place], [place] IR RENAL BIOPSY [address] [place] RENAL BIOPSY Phone: [employer] [phone] TROCAR/NEEDLE Encounter Details Date Type Department Care Team Description 06/22/2018 Orders Only [facility] Zach Mcghee, MILLIE Other [facility] Hospital Radiology (Primary Dx) Main [facility] 2nd fl [address] [place] [address] Social History Tobacco Use Types Packs/Day Years [...] PM. Narrative Performed At Ultrasound Guided Percutaneous [place] Kid[facility] Biopsy [facility] RESULTS INDICATION:Renal failure AIRCRAFT REFUELER:Nathan Hyatt M.D. DEVICE:18g biopsy gun through 17g needle guide [id number] gauge cores COMPLICATIONS:None immediate TECHNIQUE: The risks, [...] 07/11/2018 4:29 PM CDT Ultrasound Guided Percutaneous [place] Kidney Biopsy INDICATION: Renal failure AIRCRAFT REFUELER: Nathan Hyatt M.D. DEVICE: 18g biopsy gun [...]
--- OUTSIDE RECORDS SUMMARY | 2018-09-19 08:18 | XMS REPORT | Encounter Summary ---
Author Author [facility] Organization [facility] Address Unknown Phone Unavailable Care Team Providers Care Hydroelectric Station Chief Name Role Phone Sae Gu MD PCP Reason for Visit * Auth/Cert Status Reason Specialty Diagnoses / Referred By Referred To Procedures Contact Contact Diagnoses Other proteinuria P roteinuria P rocedures IR RENAL BIOPSY Encounter Details Date Type Department Care Team Description 07/07/2018 Anesthesia [facility] Alyssa Cabrera SRNA Event [facility] Radiology [address] [place] [address] Anesthesia Record Procedure Name Responsible Anesthesia Start [...] area(s) as directed every 14 days. Vit A,C,U-Cmkf-Qvxngb (ICAPS AREDS) 14,320-226-200 qzxb-jy-htpz cap Take by mouth daily. VITAMIN D [...] while standing during event. Met with Cardiac Quarter Supervisor on 07/06/2018 - plan for tilt table [...] intravenous NPO status: acceptable Consult/records acquisition requested: infection control preventionist (obtained cardiology records - noted in assessment) Informed Consent Anesthetic plan and risks discussed with patient and spouse. Use of blood products discussed with patient Blood Consent: consented Plan discussed with: anesthesiologist, SRNA and FUNDRAISER. in this encounter Plan of Treatment Not [...]
--- OUTSIDE RECORDS SUMMARY | 2018-09-19 08:18 | XMS REPORT | Encounter Summary ---
Author Author [facility] Organization [facility] Address Unknown Phone Unavailable Care Team Providers Care Daylight Driller Name Role Phone Sae Gu MD PCP Sae Allen MD Unavailable Luisa Clal DO Unavailable Nikita Armijo MD Unavailable Isai Parra MD Unavailable Shameka Ashton MD Unavailable Salvador Markahm MD 3 Salvador Markham MD Unavailable Encounter Details Date Type Department Care Team Description 06/22/2018 Pre/Post [facility] Alba Villa RN Procedure Hospital Radiology [address] [place] [address] Social History Tobacco Use Types Packs/Day Years Used Date Never Smoker Smokeless Tobacco: Never Used Alcohol Use Drinks/Week oz/Week Comments Yes Very Rare Sex Assigned at Date Recorded Not on file as of this encounter Progress Notes * Alba Villa, MILLIE - 06/22/2018 4:46 PM CDT Interventional Radiology Outpatient Scheduling Checklist 1. Procedure: Renal biopsy-[place]across Pt will be admitted post procedure 2. Date of Procedure: 07/07/18 3. Arrival Time: 1000 4. Procedure Time: 1100 5. Correct Procedural Room Assignment: Pace Room 6 6. Blood Thinners Triaged and instructed per protocol: N/A 7. Order Verified: Yes 8. Patient informed regarding procedure: Yes 9. Patient instructed to have a cat driver: Yes 10. Patient instructed on NPO [...]
--- OUTSIDE RECORDS SUMMARY | 2018-09-19 08:19 | XMS REPORT | Continuity of Care Document ---
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 06/20/2017 CARLOS EDUARDO [...] MD Ot I25.10 ATHSCL HEART DISEASE OF [place] CORONARY 06/21/2017 CARLOS EDUARDO LAGUERRE MD Ot R42 DIZZINESS AND GIDDINESS 06/21/2017 CARLOS EDUARDO LAGUERRE MD Ot Z79.82 [facility] (CURRENT) USE OF ASPIRIN 06/21/2017 CARLOS EDUARDO LAGUERRE MD Ot 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( 06/21/2017 CARLOS EDUARDO LAGUERRE MD Ot Z95.1 PRESENCE OF AORTOCORONARY BYPASS GRAFT 05/13/2018 SARAH LIMON DO Ot E78.00 PURE HYPERCHOLESTEROLEMIA, UNSPECIFIED 05/13/2018 SARAH LIMON DO Ot I10 ESSENTIAL (PRIMARY) HYPERTENSION 05/13/2018 DELMAN DO, SARAH B Ot I25.10 ATHSCL HEART DISEASE OF [place] CORONARY 05/13/2018 DELMAN DO, SARAH B Ot 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 05/13/2018 DELMAN DO, SARAH B Ot K22.2 ESOPHAGEAL OBSTRUCTION 05/13/2018 DELMAN DO, SARAH B Ot R09.02 HYPOXEMIA 05/13/2018 DELMAN DO, SARAH B Ot T18.128A FOOD IN ESOPHAGUS CAUSING OTHER INJURY, 05/13/2018 ASHLY DO, SARAH B Ot Z79.82 [facility] (CURRENT) USE OF ASPIRIN 05/13/2018 DELMAN DO, SARAH B Ot Z95.1 PRESENCE OF AORTOCORONARY BYPASS GRAFT 05/17/2018 DELMAN DO, SARAH B Ot E78.00 PURE HYPERCHOLESTEROLEMIA, UNSPECIFIED 05/17/2018 DELMAN DO, SARAH B Ot I10 ESSENTIAL (PRIMARY) HYPERTENSION 05/17/2018 DELMAN DO, SARAH B Ot I25.10 ATHSCL HEART DISEASE OF [place] CORONARY 05/17/2018 DELMAN DO, SARAH B Ot 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 05/17/2018 DELMAN DO, SARAH B Ot K22.2 ESOPHAGEAL OBSTRUCTION 05/17/2018 DELMAN DO, SARAH B Ot R09.02 HYPOXEMIA 05/17/2018 DELMAN DO, SARAH B Ot T18.128A FOOD IN ESOPHAGUS CAUSING OTHER INJURY, 05/17/2018 ASHLY DO, SARAH B Ot Z79.82 [facility] (CURRENT) USE OF ASPIRIN 05/17/2018 DELKIKA DO, SARAH B Ot Z95.1 PRESENCE OF AORTOCORONARY BYPASS GRAFT 05/17/2018 DELMAN DO, SARAH B Ot E78.00 PURE HYPERCHOLESTEROLEMIA, UNSPECIFIED 05/17/2018 DELMAN DO, SARAH B Ot I10 ESSENTIAL (PRIMARY) HYPERTENSION 05/17/2018 DELMAN DO, SARAH B Ot I25.10 ATHSCL HEART DISEASE OF [place] CORONARY 05/17/2018 DELMAN DO, SARAH B Ot 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 05/17/2018 DELMAN DO, SARAH B Ot K22.2 ESOPHAGEAL OBSTRUCTION 05/17/2018 DELMAN DO, SARAH B Ot R09.02 HYPOXEMIA 05/17/2018 DELMAN DO, SARAH B Ot T18.128A FOOD IN ESOPHAGUS CAUSING OTHER INJURY, 05/17/2018 SARAH LIMON DO Ot Z79.82 [facility] (CURRENT) USE OF ASPIRIN 05/17/2018 SARAH LIMON DO Ot Z95.1 PRESENCE OF AORTOCORONARY BYPASS GRAFT 06/22/2018 Ot E16.2 HYPOGLYCEMIA , UNSPECIFIED 06/22/2018 Ot E78.00 PURE HYPERCHOLESTEROLEMIA, UNSPECIFIED 06/22/2018 Ot F12.10 CANNABIS ABUSE, UNCOMPLICATED 06/22/2018 Ot I10 ESSENTIAL ( PRIMARY) HYPERTENSION 06/22/2018 Ot I25.10 ATHSCL HEART DISEASE OF [place] CORONARY 06/22/2018 Ot R41.82 ALTERED MENTAL STATUS, UNSPECIFIED 06/22/2018 Ot Z79.82 [facility] ( CURRENT) USE OF ASPIRIN 06/22/2018 Ot [...] DO Ot I25.10 ATHSCL HEART DISEASE OF [place] CORONARY 06/29/2018 SARAH LIMON DO Ot 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 06/29/2018 SARAH LIMON DO Ot K22.8 OTHER SPECIFIED DISEASES OF ESOPHAGUS 06/29/2018 SARAH LIMON DO Ot Z09 ENCNTR FOR F/U EXAM AFT TRTMT FOR COND O 06/29/2018 SARAH LIMON DO Ot Z79.82 [facility] (CURRENT) USE OF ASPIRIN 06/29/2018 SARAH LIMON [...] B Ot I25.10 ATHSCL HEART DISEASE OF [place] CORONARY 07/01/2018 ISH LIMON DOIC B Ot 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 07/01/2018 ISH LIMON DOIC B Ot 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 07/01/2018 ISH LIMON [...] B Ot I25.10 ATHSCL HEART DISEASE OF [place] CORONARY 07/08/2018 ISH LIMON DOIC B Ot 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 07/08/2018 ISH LIMON DOIC B Ot K22.8 OTHER SPECIFIED DISEASES OF ESOPHAGUS 07/08/2018 ASHLY FUENTES SARAH B Ot Z09 ENCNTR FOR F/U EXAM AFT TRTMT FOR COND O 07/08/2018 ISH LIMON DOIC B Ot 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 07/08/2018 ASHLY FUENTES [...] measurement by glucometer (mass/volume) 111 mg/dL 70-110 Complete blood count (CBC) with automated white blood cell (WBC) differential - 09/19/18 06:42 Blood leukocytes automated count (number/volume) 11.5 10*3/uL 4.3-11.0 Blood erythrocytes automated count (number/volume) 4.48 10*6/uL 4.35-5.85 Venous blood hemoglobin measurement (mass/volume) 14.4 g/dL 13.3-17.7 Blood hematocrit (volume fraction) 39 % 40-54 Automated erythrocyte mean corpuscular volume 87 [foz_us] 80-99 Automated erythrocyte mean corpuscular hemoglobin (mass per erythrocyte) 32 pg 25-34 Automated erythrocyte mean corpuscular hemoglobin concentration measurement ( mass/volume) 37 g/dL 32-36 Automated erythrocyte distribution width ratio 12.9 % 10.0-14.5 Automated blood platelet count (count/volume) 200 10*3/uL 130-400 Automated blood platelet mean volume measurement 11.6 [foz_us] 7.4-10.4 Automated blood neutrophils/100 leukocytes 90 % 42-75 Automated blood lymphocytes/100 leukocytes 4 % 12-44 Blood monocytes/100 leukocytes 6 % 0-12 Automated blood eosinophils/100 leukocytes 0 % 0-10 Automated blood basophils/100 leukocytes 0 % 0-10 Blood neutrophils automated count (number/volume) 10.3 10*3 1.8-7.8 Blood lymphocytes automated count (number/volume) 0.5 10*3 1.0-4.0 Blood monocytes automated count (number/volume) 0.7 10*3 0.0-1.0 Automated eosinophil count 0.0 10*3/uL 0.0-0.3 Automated blood basophil count (count/volume) 0.0 10*3/uL 0.0-0.1 Comprehensive metabolic panel - 09/19/18 06:42 Serum or plasma sodium measurement (moles/volume) 117 mmol/L 135-145 Serum or plasma potassium measurement (moles/volume) 3.4 mmol/L 3.6-5.0 Serum or plasma chloride measurement (moles/volume) 82 mmol/L 98-107 Carbon dioxide 27 mmol/L 21-32 Serum or plasma anion gap determination (moles/volume) 8 mmol/L 5-14 Serum or plasma urea nitrogen measurement (mass/volume) 18 mg/dL 7-18 Serum or plasma creatinine measurement (mass/volume) 0.79 mg/dL 0.60-1.30 Serum or plasma urea nitrogen/creatinine mass ratio 23 NRG Serum or plasma creatinine measurement with calculation of estimated glomerular filtration rate > NRG Serum or plasma glucose measurement (mass/volume) 91 mg/dL 70-105 Serum or plasma calcium measurement (mass/volume) 7.8 mg/dL 8.5-10.1 Serum or plasma total bilirubin measurement (mass/volume) 1.1 mg/dL 0.1-1.0 Serum or plasma alkaline phosphatase measurement (enzymatic activity/volume) 62 U/L 40-136 Serum or plasma aspartate aminotransferase measurement (enzymatic activity/ volume) 56 U/L 5-34 Serum or plasma alanine aminotransferase measurement (enzymatic activity/volume ) 31 U/L 0-55 Serum or plasma protein measurement (mass/volume) 3.6 g/dL 6.4-8.2 Serum or plasma albumin measurement (mass/volume) 2.1 g/dL 3.2-4.5 CALCIUM CORRECTED 9.3 mg/dL 8.5-10.1 Magnesium - 09/19/18 06:42 Magnesium 1.5 mg/dL 1.8-2.4 Serum or plasma troponin i.cardiac measurement (mass/volume) - 09/19/18 06:42 Serum or plasma troponin i.cardiac measurement (mass/volume) < ng/ mL <0.30 Blood manual differential performed detection - 09/19/18 06:42 Blood monocytes/100 leukocytes 4 % NRG Manual blood segmented neutrophils/100 leukocytes 91 % NRG Blood band neutrophils/100 leukocytes 1 % NRG Manual blood lymphocytes/100 leukocytes 4 % NRG Manual eosinophils/100 leukocytes in nose 0 % NRG Manual blood basophils/100 leukocytes 0 % NRG Blood erythrocyte morphology finding identification NORMAL NRG Encounters ACCT No. Visit Date/Time Discharge Status Pt. Type Provider Facility Loc./Unit Complaint [id number] 09/13/2018 13:22:00 09/13/2018 23:59:59 CLS Outpatient STANLEY RUELAS MD [facility] ONC [id number] 06/29/2018 13:40:00 06/29/2018 23:59:59 CLS Outpatient SARAH LIMON DO [facility] ENDO ESOPHAGEAL EROSIAS [id number] 05/13/2018 15:56:00 05/13/2018 18:15:00 DIS Outpatient SARAH LIMON DO [facility] ENDO EGD [id number] 06/20/2017 00:26:00 06/20/2017 03:57:00 DIS Emergency CARLOS EDUARDO LAGUERRE MD [facility] ER DIZZY [id number] 11/26/2014 10:52:00 11/26/2014 11:00:00 DIS Outpatient CATALINO LOO MD [facility] CR CABG [id number] 11/14/2014 08:31:00 11/21/2014 15:27:00 DIS Outpatient CATALINO WILSON DO [facility] REHAB LUMBAR STENOSIS [id number] 11/12/2014 10:18:00 11/12/2014 00:01:00 DIS Outpatient CATALINO LOO MD [facility] CR CABG [id number] 11/09/2014 08:00:00 11/09/2014 23:59:59 CLS Preadmit CATALINO LOO MD [facility] CR CABG [id number] 09/05/2014 13:43:00 09/19/2014 13:58:00 DIS Outpatient CATALINO WILSON DO [facility] REHAB LUMBAR STENOSIS [id number] 04/05/2014 07:24:00 04/05/2014 12:35:00 DIS [facility] [id number] 04/04/2014 07:29:00 04/04/2014 23:59:59 CLS Outpatient MURRAY BRIGHT, TIA Costello [facility] PREOP HISTORY OF POLYPS [id number] 02/13/2014 06:25:00 02/13/2014 23:59:59 CLS Outpatient YANNA STOVALL DO [facility] RAD POSTIVE CT CALCIUM SCORE [id number] 11/29/2013 06:05:00 11/30/2013 17:30:00 DIS Outpatient SALINAS CABELLO MD [facility] BENIGN PROSTATIC HYPERTROPHY [id number] 11/24/2013 07:51:00 11/24/2013 23:59:59 CLS Outpatient SALINAS CABELLO MD [facility] PREOP BENIGN PROSTATIC HYPERTROPHY [id number] 09/19/2018 08:10:00 ACT Inpatient JULIET BRIGHT, BRYSON Gresham [facility] 4TH HYPONATREMIA,HYPOMAGNESEMIA,DELIRIUM, SYNCOPE [id number] 06/24/2018 10:19:00 Document Registration [id number] 06/23/2018 05:35:00 Document Registration [id number] 06/22/2018 13:16:00 Document Registration [email or web address] 11/26/2014 10:52:12 ACT Document Registration
[2018-09-19] MEDS ORDERED: POLYETHYLENE GLYCOL 17 GM (MIRALAX) PACK PO NR (09:24)
[2018-09-19] MEDS ORDERED: ONDANSETRON 4 MG/2 ML (SDV) Z0FRAN IV PRN (09:30)
[2018-09-19] MEDS ORDERED: CATHETER FLUSH 10 ML SYR IV PRN (09:30)
[2018-09-19] MEDS: NS W/KCL 20 MEQ/L 1,000 ML IV SCH ×3 (09:42→23:09)
[2018-09-19] MEDS: MAGNESIUM 1 GM/D5W 100 ML IVPB IV SCH ×2 (09:42→09:49)
[2018-09-19 09:51] LABS: BILIRUBIN,URINE NEGATIVE (NEGATIVE); CLARITY,URINE CLEAR; COLOR,URINE YELLOW; GLUCOSE, URINE (UA) NEGATIVE (NEGATIVE); KETONES,URINE NEGATIVE (NEGATIVE); LEUKOCYTE ESTERASE ,URINE NEGATIVE (NEGATIVE); NITRITE,URINE NEGATIVE (NEGATIVE); PH,URINE 6 (5-9); PROTEIN,URINE 4+ (NEGATIVE); UROBILINOGEN,URINE NORMAL (NORMAL)
--- NOTE | 2018-09-19 09:55 | History & Physical-Hospitalist ---
History of Present Illness HPI/Chief Complaint Pt is a 78yoCM with a PMH amyloidosis who presented to the ER for confusion, syncope, and altered mental status. I was called to bedside shortly after arrival to the floor due to a syncopal episode while on the toilet. He is able to tell me some limited history and his is at bedside to fill in some details. Reportedly he just started chemo for amyloidosis with Dr Markham last week. He has had poor appetite and little intake over the weekend due to this and then began to hallucinate prompting him to seek evaluation. She state shis chemo regimen is cytaxin and velcade and she has already called and spoke with his oncologist at who believe this to be due to his chemo. He as found to be hyponatremic at 117 and admitted for further management. Currently he is oriented x4 and denies any hallucinations at this time. Source: patient Date Seen 09/19/18 Time Seen by a Provider: 09:55 Attending Physician Bryson Nelson MD PCP Sae Gu DO Referring Physician Date of Admission Sep 19, 2018 at 8:10 am Home Medications & Allergies Home Medications Reviewed patient Home Medication Reconciliation performed by pharmacy medication reconciliations electroneurodiagnostic technician and/or nursing. Patients Allergies have been reviewed. Allergies Allergies Coded Allergies Ewlsvhv-Iao-Sqp Reductase Inhibitor (Verified Allergy, Severe, POSS KIDNEY ISSUES, 06/23/18) casein (Verified Allergy, Unknown, RASH, 09/19/18) gluten (Verified Allergy, Unknown, RASH, 09/19/18) Past Nwyygma-Qvqnyq-Zhzqir Hx Past Med/Social Hx: Reviewed Nursing Past Med/Soc Hx, Reviewed and Corrections made Patient Social History Marrital Status: Alcohol Use: Denies Use Number of Drinks Today: AA Alcohol Beverage of Choice: Beer Recreational Drug Use: Yes Drug of Choice: MARIJUANA Smoking Status: Never a Smoker 2nd Hand Smoke Exposure: No Recent Foreign Travel: No Contact w/other who traveled: No Recent Hopitalizations: No Recent Infectious Disease Expo: No Immunizations Up To Date Tetanus Booster (TDap): Unknown Date of Pneumonia Vaccine: April 05, 2013 Date of Influenza Vaccine: Sep 12, 2018 Seasonal Allergies Seasonal Allergies: Yes (SINUS ISSUES) Past Medical History Surgeries: Abdominal (endoscopy), CABG, Orthopedic, Prostatectomy Cardiac: Coronary Artery Disease, High Cholesterol, Hypertension Neurological: Neuropathy Reproductive: No Sexually Transmitted Disease: No HIV/AIDS: No HEENT: Macular Degeneration Loss of Vision: Bilateral Hearing Impairment: Denies History of Blood Disorders: No Adverse Reaction to Blood Owens: No (N/A) Family History Reviewed Nursing Family Hx Congestive heart failure 03 MOTHER Family history: Thyroid disorder 09 SISTER History of - disorder 03 FATHER (RENA TRACE'S DISEASE) No Family History of: Abdominal aortic aneurysm Cancer Dementia Family history: Allergy Family history: Alzheimer's disease Family history: Arthritis Family history: Cardiovascular disease Family history: Diabetes mellitus Family history: Gastrointestinal disease Hereditary disease History of - respiratory disease Heart Disease, COPD Review of Systems ROS-Unable to Obtain: Limited due to syncope Constitutional: No fever; weakness EENTM: no symptoms reported Respiratory: no symptoms reported Cardiovascular: no symptoms reported Gastrointestinal: No diarrhea; loss of appetite, nausea, vomiting Genitourinary: no symptoms reported Musculoskeletal: no symptoms reported Skin: no symptoms reported Psychiatric/Neurological: No Symptoms Reported Physical Exam Physical Exam Vital Signs Vital Signs - First Documented 09/19/18 09/19/18 06:42 08:05 Temp 98.3 Pulse 80 Resp 19 B/P (MAP) 134/97 (109) Pulse Ox 98 O2 Delivery Nasal Cannula O2 Flow Rate 2.00 Capillary Refill : Less Than 3 Seconds Height, Weight, BMI Height: 5'10.00" Weight: 176lbs. 0.0oz. 79.780400ry; 25.3 BMI Method:Stated General Appearance: Moderate Distress (passed out on toilet- quickly regained consciousness) Respiratory: Lungs Clear, No Accessory Muscle Use, No Respiratory Distress Cardiovascular: Regular Rate, Rhythm, No Murmur Neurologic/Psychiatric: Alert, Oriented x3, No Motor/Sensory Deficits Results Results/Procedures Labs Laboratory Tests 09/19/18 06:42 09/19/18 12:15 Patient resulted labs reviewed. Imaging: Reviewed Imaging Report Assessment/Plan Admission Diagnosis Hyponatremia Admission Status: Inpatient Order (span 2 midnights) Reason for Inpatient Admission: Severe hyponatremia will require frequent monitoring and IV treatement- consideration to hypertonic saline as well Diagnosis/Problems Diagnosis/Problems (1) Hyponatremia Status: Acute Assessment & Plan: Na 117- likely an acute drop Appears to be chronically low in the high 120s to 130s Continue IVF Mentation improving Will recheck BMP this afternoon (2) Delirium Status: Acute Assessment & Plan: Improving- no longer hallucinating Will check home meds when available to make sure not contributing (3) Syncope and collapse Status: Acute Assessment & Plan: Syncopal episode on toilet Monitor on telemetry Glucose 124 on accu check BP marginal- will bolus 1L and then continue IVF (4) Amyloidosis Status: Acute Qualifiers: Amyloidosis type: unspecified amyloidosis Qualified Codes: E85.9 - Amyloidosis, unspecified (5) Hypomagnesemia Status: Acute Assessment & Plan: Will replace Clinical Quality Measures DVT/VTE Risk/Contraindication: Risk Factor Score Per Nursin RFS Level Per Nursing on Admit: 4+=Very High BRYSON NELSON MD Sep 19, 2018 9:55 am
[2018-09-19 10:00] LABS: BACTERIA,URINE TRACE /HPF; WBC,URINE RARE /HPF
[2018-09-19 10:01] LABS: CALCIUM OXALATE CRYSTALS,UR FEW /LPF; SQUAMOUS EPITHELIAL CELL,UR 0-2 /HPF
[2018-09-19 10:02] LABS: RBC,URINE 0-2 /HPF
[2018-09-19] MEDS ORDERED: VIT1CAPS44 PO (11:17)
[2018-09-19] MEDS ORDERED: ZOLP5TAB7 PO (11:17)
[2018-09-19] MEDS ORDERED: CYCL50CA3 PO (11:17)
[2018-09-19] MEDS ORDERED: FURO40TA4 PO (11:17)
[2018-09-19] MEDS ORDERED: EYE INJECTION INJ (11:17)
[2018-09-19] MEDS ORDERED: HYDR10TA13 PO ×2 (11:17)
[2018-09-19] MEDS ORDERED: ACYC400T PO (11:17)
[2018-09-19] MEDS ORDERED: DOXY100T2 PO (11:17)
[2018-09-19] MEDS ORDERED: ROSU10TA27 PO (11:17)
[2018-09-19] MEDS ORDERED: DEXA4TAB PO (11:17)
[2018-09-19] MEDS ORDERED: ERGO50006 PO (11:17)
[2018-09-19] MEDS ORDERED: ONDA8TAB12 PO (11:17)
[2018-09-19 12:38] LABS: BUN/CREATININE RATIO 24; CALCIUM 7.5 MG/DL (8.5-10.1); CARBON DIOXIDE 24 MMOL/L (21-32); CHLORIDE 86 MMOL/L (98-107); CREATININE SERUM 0.71 MG/DL (0.60-1.30); GFR ESTIMATED > 60; GLUCOSE 124 MG/DL (70-105); POTASSIUM 3.6 MMOL/L (3.6-5.0)
[2018-09-19 12:46] LABS: SODIUM 117 MMOL/L (135-145)
[2018-09-19] MEDS ORDERED: ACETAMINOPHEN 500 MG TAB (TYLENOL) PO PRN (14:15)
[2018-09-19] MEDS ORDERED: MILK OF MAGNESIA 400 MG/5 ML 30 ML UDC PO PRN (14:15)
--- NOTE | 2018-09-19 16:54 | Diagnostic Imaging Report ---
PROCEDURE: US venous upper extremity left. INDICATION: Upper extremity swelling, pain. TECHNIQUE: Color and grayscale sonographic images with duplex Doppler evaluation of the upper extremity venous system. CORRELATION STUDY: None FINDINGS: There is no intraluminal filling defect within the visualized portion of the internal jugular, subclavian, axillary, brachial and/or basilic veins to suggest thrombus formation. Where applicable, these vessels demonstrate normal response to compression and augmentation. There is no significant soft tissue fluid collection. IMPRESSION: 1. Negative left upper extremity venous duplex Doppler evaluation. Dictated by: Dictated on workstation # [id number]
[2018-09-19] MEDS: MELATONIN 3 MG TABLET PO PRN (20:23)
[2018-09-20] VITALS (11 sets, daily range): BP systolic 120–144; BP diastolic 74–97
[2018-09-20] MEDS: ACETAMINOPHEN 325 MG TABLET PO PRN ×2 (01:45→05:43)
[2018-09-20] MEDS: NS W/KCL 20 MEQ/L 1,000 ML IV SCH (05:42)
[2018-09-20 06:21] LABS: BASOPHILS % (AUTO) 0 % (0-10); EOSINOPHILS % (AUTO) 0 % (0-10); HEMATOCRIT 39 % (40-54); HEMOGLOBIN 14.1 G/DL (13.3-17.7); LYMPHOCYTES # (AUTO) 0.6 X 10^3 (1.0-4.0); LYMPHOCYTES % (AUTO) 5 % (12-44); MEAN CORPUSCULAR HEMOGLOBIN 32 PG (25-34); MEAN CORPUSCULAR HGB CONC 36 G/DL (32-36); MEAN CORPUSCULAR VOLUME 88 FL (80-99); MEAN PLATELET VOLUME 12.2 FL (7.4-10.4); MONOCYTES # (AUTO) 0.8 X 10^3 (0.0-1.0); MONOCYTES % (AUTO) 7 % (0-12); NEUTROPHILS # (AUTO) 10.1 X 10^3 (1.8-7.8); NEUTROPHILS % (AUTO) 88 % (42-75); PLATELET COUNT 187 10^3/uL (130-400); RED BLOOD COUNT 4.47 10^6/uL (4.35-5.85); RED CELL DISTRIBUTION WIDTH 12.7 % (10.0-14.5); WHITE BLOOD COUNT 11.5 10^3/uL (4.3-11.0)
[2018-09-20 06:49] LABS: ALANINE AMINOTRANSFERASE 31 U/L (0-55); ALBUMIN 1.9 GM/DL (3.2-4.5); ALKALINE PHOSPHATASE 56 U/L (40-136); BILIRUBIN,TOTAL 0.8 MG/DL (0.1-1.0); BUN/CREATININE RATIO 24; CALCIUM 7.5 MG/DL (8.5-10.1); CARBON DIOXIDE 21 MMOL/L (21-32); CHLORIDE 89 MMOL/L (98-107); CREATININE SERUM 0.67 MG/DL (0.60-1.30); GFR ESTIMATED > 60; GLUCOSE 85 MG/DL (70-105); TOTAL PROTEIN 3.5 GM/DL (6.4-8.2)
[2018-09-20 07:29] LABS: SODIUM 118 MMOL/L (135-145)
--- NOTE | 2018-09-20 09:38 | Pulmonary Consultation ---
History of Present Illness History of Present Illness Date of Consultation 09/20/18 09:33 Time Seen by Provider: 09:33 Date of Admission History of Present Illness 78yo with hx of chronic hyponatremia amyloidosis presented to ED secondary to worsening confusion, syncope and MS changes. Pt just started chemotherapy for amyloidosis with Dr. Markham. Pt has also been hallucinating. PT was admitted to 4th floor and placed on NS secondary to hyponatremia. Repeat Na this am is still only 118. Medications reviewed and he is not currently on any medicines that would contribute to hyponatremia. 09/13/18 Na was 129. Allergies and Home Medications Allergies Coded Allergies: No Known Drug Allergies (Unverified , 09/23/18) Home Medications Acyclovir 400 Mg Tablet, 400 MG PO BID, (Reported) Cyclophosphamide 50 Mg Capsule, 550 MG PO UD, (Reported) TAKES 11 (50MG) CAPSULES ON DAYS 1,8,15 AND 22 OF CHEMO TREATMENT Dexamethasone 4 Mg Tablet, 40 MG PO UD, (Reported) TAKES 10 (4MG) TABLETS ON DAYS 1,8,15, AND 22 OF CHEMO TREATMENT Doxycycline Hyclate 100 Mg Tablet, 100 MG PO BID, (Reported) Ergocalciferol (Vitamin D2) 50,000 Unit Capsule, 50,000 UNITS PO TuTh, (Reported ) Furosemide 40 Mg Tablet, 40 MG PO DAILY, (Reported) Hydrocortisone 10 Mg Tablet, 20 MG PO DAILY, (Reported) TAKES 2 (10MG) TABLETS Hydrocortisone 10 Mg Tablet, 10 MG PO HS, (Reported) Ondansetron HCl 8 Mg Tablet, 8 MG PO Q8H PRN for NAUSEA/VOMITING-1ST LINE, ( Reported) Rosuvastatin Calcium 10 Mg Tablet, 20 MG PO HS, (Reported) TAKES 2 (10MG) TABLETS Vit C/E/Zn/Coppr/Lutein/Zeaxan 1 Each Capsule, 1 CAP PO BID, (Reported) Zolpidem Tartrate 5 Mg Tablet, 5 MG PO HS, (Reported) [Eye Injection] , INJ EVERY 2 MONTHS, (Reported) Past Ohcbklv-Zndoqv-Niutnd Hx Past Med/Social Hx: Reviewed Nursing Past Med/Soc Hx, Reviewed and Corrections made Patient Social History Alcohol Use: Denies Use Number of Drinks Today: AA Alcohol Beverage of Choice: Beer Recreational Drug Use: Yes Drug of Choice: MARIJUANA Smoking Status: Never a Smoker 2nd Hand Smoke Exposure: No Recent Foreign Travel: No Contact w/Someone Who Travel: No Recent Infectious Disease Expo: No Recent Hopitalizations: No Immunizations Up To Date Tetanus Booster (TDap): Unknown PED Vaccines UTD: No Date of Pneumonia Vaccine: April 05, 2013 Date of Influenza Vaccine: Sep 12, 2018 Seasonal Allergies Seasonal Allergies: Yes (SINUS ISSUES) Past Medical History Surgeries: Yes (BACK) Abdominal (endoscopy), CABG, Orthopedic, Prostatectomy Respiratory: No Currently Using CPAP: No Currently Using BIPAP: No Cardiac: Yes (CAD, AMYLOIDOSIS) Coronary Artery Disease, High Cholesterol, Hypertension Neurological: Yes Neuropathy Reproductive Disorders: No Sexually Transmitted Disease: No HIV/AIDS: No Genitourinary: No (KIDNEY DZ) 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) Musculoskeletal: No Endocrine: No Are Your Blood Sugars Over 250: No HEENT: No Macular Degeneration Loss of Vision: Bilateral Hearing Impairment: Denies Cancer: No Psychosocial: No Integumentary: No Blood Disorders: No Adverse Reaction/Blood Tranf: No (N/A) Family Medical History Reviewed Nursing Family Hx Congestive heart failure 03 MOTHER Family history: Thyroid disorder 09 SISTER History of - disorder 03 FATHER (RENA TRACE'S DISEASE) No Family History of: Abdominal aortic aneurysm Cancer Dementia Family history: Allergy Family history: Alzheimer's disease Family history: Arthritis Family history: Cardiovascular disease Family history: Diabetes mellitus Family history: Gastrointestinal disease Hereditary disease History of - respiratory disease Heart Disease, COPD Review of Systems Time Seen by Provider: 10:27 Sepsis Event Evaluation Height, Weight, BMI Height: 5'10.00" Weight: 176lbs. 0.0oz. 79.303989yh; 25.3 BMI Method:Stated Exam Exam Vital Signs Date Time Temp Pulse Resp B/P (MAP) Pulse Ox O2 Delivery O2 Flow Rate FiO2 09/20/18 09:00 97.3 80 20 131/74 (93) 91 Room Air 09/20/18 04:03 97.8 79 16 135/85 (102) 93 Room Air 09/20/18 01:00 80 09/20/18 00:17 98.0 78 18 131/85 (100) 94 Room Air 09/19/18 20:20 Room Air 09/19/18 19:29 97.5 77 18 120/75 (90) 85 Room Air 09/19/18 19:00 79 09/19/18 16:10 97.7 79 20 125/80 (95) 84 Room Air 09/19/18 14:00 97.9 75 16 118/78 (91) 90 Room Air 09/19/18 13:00 80 09/19/18 12:11 97.4 78 16 121/82 (95) 90 Room Air 09/19/18 10:03 96.3 73 18 118/78 (91) 98 Room Air 09/19/18 09:42 74 16 91 09/19/18 09:40 92 Room Air I & O 09/20/18 07:00 Intake Total 4370 ml Output Total 600 ml Balance 3770 ml Height & Weight Height: 5'10.00" Weight: 176lbs. 0.0oz. 79.114866rq; 25.3 BMI Method:Stated General Appearance: Moderate Distress (passed out on toilet- quickly regained consciousness) HEENT: PERRL/EOMI, Other (some blotchy markings on the face around the nose and lips of undetermined significance. Mucous membranes dry) Neck: Normal Inspection, Non Tender Respiratory: Lungs Clear, No Accessory Muscle Use, No Respiratory Distress Cardiovascular: Regular Rate, Rhythm, No Murmur Capillary Refill: Less Than 3 Seconds Extremity: Non Tender, Swelling (as above) Neurologic/Psychiatric: Alert, Oriented x3, No Motor/Sensory Deficits Skin: Normal Color, Warm/Dry, Other (see HEENT exam) Results Lab Laboratory Tests 09/19/18 06:42 09/19/18 12:15 09/20/18 05:37 Assessment/Plan Assessment/Plan Severe acute on chronic hyponatremia -Worsening since last chemotherapy -09/13/18 Na was 129. -Pt has not responded to NS -Will transfer to ICU and start Hypertonic Saline at 30cc/hr -repeat Chem Q2 Delirium Syncope/fall Amyloidosis s/p chemo CLAY MATIAS DO Sep 20, 2018 09:38
--- NOTE | 2018-09-20 10:45 | Progress Note-Hospitalist ---
Subjective HPI/CC On Admission Date Seen by Provider: Sep 20, 2018 Time Seen by Provider: 10:40 Pt is a 78yoCM with a PMH amyloidosis who presented to the ER for confusion, syncope, and altered mental status. I was called to bedside shortly after arrival to the floor due to a syncopal episode while on the toilet. He is able to tell me some limited history and his is at bedside to fill in some details. Reportedly he just started chemo for amyloidosis with Dr Markham last week. He has had poor appetite and little intake over the weekend due to this and then began to hallucinate prompting him to seek evaluation. She state shis chemo regimen is cytaxin and velcade and she has already called and spoke with his oncologist at who believe this to be due to his chemo. He as found to be hyponatremic at 117 and admitted for further management. Currently he is oriented x4 and denies any hallucinations at this time. Subjective/Events-last exam Pt reports still feeling bad. No appetite. Very weak. No current hallucinations but states overnight she thought he had some. Objective Exam Vital Signs Vital Signs Date Time Temp Pulse Resp B/P (MAP) Pulse Ox O2 Delivery O2 Flow Rate FiO2 09/20/18 09:00 97.3 80 20 131/74 (93) 91 Room Air 09/19/18 09:30 2.00 Capillary Refill : Less Than 3 Seconds General Appearance: No Apparent Distress, Chronically ill Respiratory: Lungs Clear, No Respiratory Distress Cardiovascular: Regular Rate, Rhythm, No Murmur Gastrointestinal: Normal Bowel Sounds, Soft Extremity: No Calf Tenderness, No Pedal Edema Neurologic/Psychiatric: Alert, Oriented x3 Results/Procedures Lab Laboratory Tests 09/19/18 12:15 09/20/18 05:37 Patient resulted labs reviewed. Imaging: Reviewed Imaging Report Assessment/Plan Assessment and Plan Assess & Plan/Chief Complaint Hyponatremia Diagnosis/Problems Diagnosis/Problems (1) Hyponatremia Status: Acute Assessment & Plan: Na 118- likely an acute drop Appears to be chronically low in the high 120s Continue IVF Mentation improving Discussed with family and Dr Tolbert- will start hypertonic saline Transfer to ICU Will start fluid restriction if/when appetite improves (2) Delirium Status: Acute Assessment & Plan: Improving- no longer hallucinating Will check home meds when available to make sure not contributing Was previously taking Lasix so will hold (3) Syncope and collapse Status: Acute Assessment & Plan: Syncopal episode on toilet yesterday Monitor on telemetry Orthostatic Positive Continue IVF (4) Amyloidosis Status: Acute Assessment & Plan: Follows with [facility] and started on chemo last week Chemo through [facility] here with Dr Markham Qualifiers: Amyloidosis type: unspecified amyloidosis Qualified Codes: E85.9 - Amyloidosis, unspecified (5) Hypomagnesemia Status: Acute Assessment & Plan: Replaced Clinical Quality Measures DVT/VTE Risk/Contraindication: Risk Factor Score Per Nursin RFS Level Per Nursing on Admit: 4+=Very High BRYSON CHUNG MD Sep 20, 2018 10:45 am
[2018-09-20 11:20] LABS: BUN/CREATININE RATIO 22; CALCIUM 7.7 MG/DL (8.5-10.1); CARBON DIOXIDE 23 MMOL/L (21-32); CHLORIDE 88 MMOL/L (98-107); CREATININE SERUM 0.72 MG/DL (0.60-1.30); GFR ESTIMATED > 60; GLUCOSE 87 MG/DL (70-105); POTASSIUM 4.4 MMOL/L (3.6-5.0)
[2018-09-20 11:26] LABS: SODIUM 119 MMOL/L (135-145)
--- NOTE | 2018-09-20 12:27 | Diagnostic Imaging Report ---
Indication: PICC line placement Portable chest 12:06 PM Left upper extremity PICC line tip projects over the SVC. There are postop changes from a median sternotomy. There is right pleural effusion. Impression: Right pleural effusion. Dictated by: Dictated on workstation # [id number]
[2018-09-20] MEDS: SODIUM CHLORIDE 3% 500 ML IV SCH ×2 (12:34→12:40)
[2018-09-20 12:51] LABS: BUN/CREATININE RATIO 25; CALCIUM 7.5 MG/DL (8.5-10.1); CARBON DIOXIDE 21 MMOL/L (21-32); CHLORIDE 88 MMOL/L (98-107); CREATININE SERUM 0.64 MG/DL (0.60-1.30); GFR ESTIMATED > 60; GLUCOSE 91 MG/DL (70-105); POTASSIUM 4.5 MMOL/L (3.6-5.0)
[2018-09-20 12:54] LABS: SODIUM 117 MMOL/L (135-145)
[2018-09-20 14:58] LABS: BUN/CREATININE RATIO 25; CALCIUM 7.6 MG/DL (8.5-10.1); CARBON DIOXIDE 21 MMOL/L (21-32); CHLORIDE 90 MMOL/L (98-107); CREATININE SERUM 0.65 MG/DL (0.60-1.30); GFR ESTIMATED > 60; GLUCOSE 95 MG/DL (70-105); POTASSIUM 4.5 MMOL/L (3.6-5.0)
[2018-09-20 15:10] LABS: SODIUM 119 MMOL/L (135-145)
[2018-09-20 18:24] LABS: BUN/CREATININE RATIO 26; CALCIUM 7.5 MG/DL (8.5-10.1); CARBON DIOXIDE 21 MMOL/L (21-32); CHLORIDE 90 MMOL/L (98-107); CREATININE SERUM 0.65 MG/DL (0.60-1.30); GFR ESTIMATED > 60; GLUCOSE 92 MG/DL (70-105); POTASSIUM 4.3 MMOL/L (3.6-5.0)
[2018-09-20 18:27] LABS: SODIUM 119 MMOL/L (135-145)
[2018-09-20] MEDS: MELATONIN 3 MG TABLET PO PRN (20:57)
--- NOTE | 2018-09-20 22:40 | CONSULTATION REPORT ---
DATE OF SERVICE: 09/20/2018 The patient is admitted to ICU, bed #12. REFERRING PHYSICIAN: Liss Nelson MD. PRIMARY CARE PHYSICIAN: Sae Gu DO. IMPRESSION: 1. Hyponatremia, rule out SIADH versus drug reaction. 2. AL lambda amyloidosis diagnosed recently. The patient started palliative chemotherapy with Cytoxan, Bortezomib and Dexamethasone regimen one week ago and received the first dose. 3. History of falls at home prior to hospitalization. 4. Right lower lobe atelectasis/infiltrate, rule out pneumonia. RECOMMENDATIONS: 1. Agree with the management of hyponatremia as you are doing with hypertonic saline. 2. Consider broad spectrum antibiotic therapy because of the possibility of pneumonia/pleurisy. 3. Hold further chemotherapy until he is better clinically and reevaluated. Significant hyponatremia is a rare complication of Velcade (bortezomib). 4. Once the patient is stable medically, may discharge and follow up as an [facility] with Dr. Markham. BRIEF HISTORY: The patient is a 78-year-old male who was recently diagnosed with AL lambda amyloidosis following a renal and a bone marrow biopsy. He was seen at [facility] as well as [facility] and recommended to start palliative chemotherapy with CyBorD regimen containing cyclophosphamide, Bortezomib-Dexamethasone. He received the first dose a week ago. Two days later the patient started feeling sick to his stomach with nausea, vomiting, low appetite and increasing weakness. He tried to manage at home, but because of the weakness he had 1 or 2 falls at home. Eventually, he started having mental status changes and was brought to the emergency room yesterday and admitted to the hospital. Oncology consultation was obtained for concurrent care. PAST MEDICAL HISTORY: Significant for coronary artery disease requiring a 3-vessel CABG in June. He has worsening peripheral neuropathy and generalized weakness to the point that it was affecting his activity level. Recent diagnosis of amyloidosis as mentioned above. He has hypercholesterolemia and was on treatment previously, but this was stopped. Macular degeneration and anemia. PAST SURGICAL HISTORY: Include 3-vessel CABG, TURP, cataract surgery and prostate surgery. SOCIAL HISTORY: The patient is and lives in [place]. Denied any tobacco, alcohol or other recreational drug use. 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 Past year or so he has not been able to play the drums because of his fatigue and weakness. FAMILY HISTORY: Significant for his father who was diagnosed with ALS. His brother and sister was diagnosed with COPD. PHYSICAL EXAMINATION: GENERAL: Today showed an elderly male, weak appearing, awake and answering questions appropriately, in no acute distress at the time of evaluation. VITAL SIGNS: Temperature was 97.8, pulse rate 81, respirations 24, blood pressure 130/88, oxygen saturation 97% on 2 liters of oxygen by nasal cannula. HEENT: Normocephalic with male pattern baldness, extraocular muscles intact, conjunctivae pink, oral mucosa moist. NECK: Supple, with no JVD. No cervical, supraclavicular or axillary lymphadenopathy palpable. CHEST: Symmetrical. LUNGS: Clear to auscultation without wheezes or rales. The patient had tenderness in the left anterior ribs along the anterior axillary line on palpation. CARDIOVASCULAR: Regular in rate and rhythm without murmurs or gallops. ABDOMEN: Soft with active bowel sounds. No hepatosplenomegaly or other masses palpable. EXTREMITIES: Showed edema of the left upper extremity. A PICC line is present in the left side. Rest of the extremities with no edema. NEUROLOGIC: Showed no focal motor deficits. Overall, motor strength was 4/5 bilaterally. LABORATORY DATA: CBC done today showed WBC 11.5, hemoglobin 14.1 and platelet count 187,000 with neutrophil count 10.1 and lymphocyte count 0.6. CMP done at the time of admission showed sodium level of 117, potassium 3.4. BUN was 18 and creatinine 0.79 with GFR more than 60 mL per minute. Measured calcium was 7.8 with albumin level of 2.1 and corrected calcium of 9.3. Total bilirubin was minimally elevated at 1.1 and AST at 56. Rest of the liver function studies were within normal limits. Troponin was less than 0.3. Urinalysis was unremarkable. Chest x-ray done at the time of admission showed bibasilar airspace opacities, right greater than left. CT scan of the head done at the time of admission showed no acute intracranial hemorrhage or ischemia. Generalized parenchymal volume loss and findings of chronic microvascular disease. Venous Doppler study of the left upper extremity was negative with no evidence of thrombus formation. Repeat chest x-ray done today showed left upper extremity PICC line projects over SVC. Small right pleural effusion noted. Thank you for allowing me to participate in this patient's care. Job ID: [id number] DocumentID: [id number] Dictated Date: 09/20/2018 18:06:43 Access Spec Date: 09/20/2018 22:40:21 Dictated By: CATY SY MD MTDD
[2018-09-20 22:45] LABS: BUN/CREATININE RATIO 24; CALCIUM 7.6 MG/DL (8.5-10.1); CARBON DIOXIDE 25 MMOL/L (21-32); CHLORIDE 90 MMOL/L (98-107); GFR ESTIMATED > 60; GLUCOSE 93 MG/DL (70-105); POTASSIUM 4.3 MMOL/L (3.6-5.0)
[2018-09-20 22:50] LABS: SODIUM 120 MMOL/L (135-145)
[2018-09-21] VITALS (17 sets, daily range): BP systolic 89–128; BP diastolic 49–89
[2018-09-21 04:02] LABS: BASOPHILS % (AUTO) 0 % (0-10); EOSINOPHILS % (AUTO) 0 % (0-10); HEMATOCRIT 40 % (40-54); HEMOGLOBIN 14.2 G/DL (13.3-17.7); LYMPHOCYTES # (AUTO) 0.3 X 10^3 (1.0-4.0); LYMPHOCYTES % (AUTO) 3 % (12-44); MEAN CORPUSCULAR HEMOGLOBIN 32 PG (25-34); MEAN CORPUSCULAR HGB CONC 36 G/DL (32-36); MEAN CORPUSCULAR VOLUME 89 FL (80-99); MEAN PLATELET VOLUME 12.4 FL (7.4-10.4); MONOCYTES % (AUTO) 7 % (0-12); NEUTROPHILS # (AUTO) 11.8 X 10^3 (1.8-7.8); NEUTROPHILS % (AUTO) 90 % (42-75); PLATELET COUNT 183 10^3/uL (130-400); RED BLOOD COUNT 4.47 10^6/uL (4.35-5.85); RED CELL DISTRIBUTION WIDTH 13.2 % (10.0-14.5); WHITE BLOOD COUNT 13.1 10^3/uL (4.3-11.0)
[2018-09-21 04:16] LABS: BUN/CREATININE RATIO 25; CALCIUM 7.8 MG/DL (8.5-10.1); CARBON DIOXIDE 25 MMOL/L (21-32); CHLORIDE 91 MMOL/L (98-107); CREATININE SERUM 0.68 MG/DL (0.60-1.30); GFR ESTIMATED > 60; GLUCOSE 97 MG/DL (70-105); MAGNESIUM 1.6 MG/DL (1.8-2.4); PHOSPHORUS 2.8 MG/DL (2.3-4.7); POTASSIUM 4.2 MMOL/L (3.6-5.0)
[2018-09-21 04:18] LABS: SODIUM 121 MMOL/L (135-145)
[2018-09-21] MEDS: POTASSIUM CL 10MEQ/50ML IVPB 50 ML IV SCH (04:21)
[2018-09-21] MEDS: KCL 20 MEQ TAB (K-DUR) PO SCH (04:22)
[2018-09-21] MEDS: MAGNESIUM 1 GM/100 ML IVPB 100 ML IV SCH ×3 (04:22→05:26)
[2018-09-21] MEDS: SODIUM CHLORIDE 3% 500 ML IV SCH ×2 (04:33→22:04)
--- NOTE | 2018-09-21 05:55 | Pulmonary Progress Note ---
Subjective Time Seen by a Provider: 06:00 Subjective/Events-last exam Pt complains of SOB and wheezing Sepsis Event Evaluation Height, Weight, BMI Height: 5'10.00" Weight: 180lbs. 2.0oz. 81.877606an; 25.3 BMI Method:Stated Exam Exam Vital Signs Date Time Temp Pulse Resp B/P (MAP) Pulse Ox O2 Delivery O2 Flow Rate FiO2 09/21/18 04:00 94 Nasal Cannula 3.00 09/21/18 03:00 97.6 84 18 107/74 (85) 94 Nasal Cannula 3.00 09/21/18 01:00 82 09/21/18 01:00 83 17 127/89 (102) 97 Nasal Cannula 5.00 09/21/18 00:20 97.0 81 21 128/82 (97) 97 Nasal Cannula 5.00 09/21/18 00:15 96 Nasal Cannula 5.00 09/20/18 23:26 Nasal Cannula 5.00 09/20/18 23:00 85 16 123/88 (100) 91 Nasal Cannula 5.00 09/20/18 22:50 84 8 90 Nasal Cannula 5.00 09/20/18 22:00 79 23 120/82 (95) 97 Nasal Cannula 3.00 09/20/18 21:00 80 26 134/82 (99) 99 Nasal Cannula 3.00 09/20/18 20:15 97.7 92 Nasal Cannula 3.00 09/20/18 20:00 81 28 121/84 (96) 94 Nasal Cannula 2.00 09/20/18 19:45 92 Nasal Cannula 3.00 09/20/18 19:00 80 22 134/93 (107) 97 Nasal Cannula 2.00 09/20/18 19:00 80 09/20/18 18:00 79 24 144/97 (113) 99 Nasal Cannula 2.00 09/20/18 17:00 81 24 130/88 (102) 97 Nasal Cannula 2.00 09/20/18 16:00 91 Nasal Cannula 2.00 09/20/18 16:00 80 19 92 Nasal Cannula 2.00 09/20/18 15:33 97.8 Nasal Cannula 2.00 09/20/18 15:00 82 29 98 Nasal Cannula 2.00 09/20/18 14:11 97.6 Nasal Cannula 2.00 09/20/18 14:00 79 12 95 Room Air 09/20/18 13:00 81 09/20/18 13:00 81 12 93 Room Air 09/20/18 12:30 97.6 09/20/18 12:30 91 Nasal Cannula 2.00 09/20/18 12:00 97.6 Nasal Cannula 2.00 09/20/18 12:00 80 133/94 (107) Room Air 09/20/18 09:00 97.3 80 20 131/74 (93) 91 Room Air 09/20/18 08:15 Room Air 09/20/18 07:00 75 I & O 09/21/18 07:00 Intake Total 1710 ml Output Total 3050 ml Balance -1340 ml Height & Weight Height: 5'10.00" Weight: 180lbs. 2.0oz. 81.368315ek; 25.3 BMI Method:Stated General Appearance: Chronically ill, Moderate Distress HEENT: PERRL/EOMI, Other (some blotchy markings on the face around the nose and lips of undetermined significance. Mucous membranes dry) Neck: Normal Inspection, Non Tender Respiratory: Accessory Muscle Use, Decreased Breath Sounds, Wheezing Cardiovascular: Regular Rate, Rhythm, No Murmur Capillary Refill: Less Than 3 Seconds Extremity: No Calf Tenderness, No Pedal Edema Neurologic/Psychiatric: Alert, Oriented x3 Skin: Normal Color, Warm/Dry, Other (see HEENT exam) Results Lab Laboratory Tests 09/19/18 06:42 09/19/18 12:15 09/20/18 05:37 09/20/18 10:52 09/20/18 12:30 09/20/18 14:30 09/20/18 18:00 09/20/18 21:55 09/21/18 03:00 Assessment/Plan Assessment/Plan Severe acute on chronic hyponatremia -Worsening since last chemotherapy -09/13/18 Na was 129. -Hypertonic Saline at 40cc/hr -Continue to follow chem Leukocytosis - r/o pneumonia -Ray culture -start vanco and zosyn Orthostatic hypotension with Hx of adrenal insuff -Pt is on home cortisone -Will increase to 30mg BID and give solucortef 100mg IV X 1 Hypomag -will give 4grms Pulmonary edema- worsening SOB -GIve 40mg of Lasix IV X 1 --BNP 723 Dysuria s/p dailey cath Delirium Syncope/fall Amyloidosis s/p chemo CLAY MATIAS DO Sep 21, 2018 05:55
[2018-09-21] MEDS ORDERED: FUROSEMIDE 40 MG/4 ML INJ (LASIX) IVP ONE (06:00)
[2018-09-21] MEDS ORDERED: PHARMACY TO DOSE IV SCH (06:00)
[2018-09-21] MEDS ORDERED: KCL 10 MEQ TAB (MICRO K) PO ONE (06:00)
[2018-09-21] MEDS ORDERED: MAGNESIUM 1 GM/100 ML IVPB 100 ML IV SCH (06:15)
[2018-09-21] MEDS: PIPERACILLIN SODIUM/TAZOBACTAM 4.5 GM in NS (IVPB) 100 ML IV SCH ×3 (06:37→22:11)
[2018-09-21 06:40] LABS: BILIRUBIN,URINE NEGATIVE (NEGATIVE); CLARITY,URINE CLEAR; COLOR,URINE YELLOW; GLUCOSE, URINE (UA) NEGATIVE (NEGATIVE); KETONES,URINE NEGATIVE (NEGATIVE); LEUKOCYTE ESTERASE ,URINE 1+ (NEGATIVE); NITRITE,URINE NEGATIVE (NEGATIVE); PH,URINE 6 (5-9); PROTEIN,URINE 4+ (NEGATIVE); UROBILINOGEN,URINE NORMAL (NORMAL)
[2018-09-21] MEDS ORDERED: RT-ALBUTEROL/IPRATROPIUM 3 ML (DUONEB) VIAL INH PRN (06:45)
[2018-09-21 06:53] LABS: BACTERIA,URINE NEGATIVE /HPF; RBC,URINE >100 /HPF; WBC,URINE RARE /HPF
[2018-09-21 06:54] LABS: SQUAMOUS EPITHELIAL CELL,UR 0-2 /HPF
[2018-09-21] MEDS ORDERED: VANCOMYCIN 2000 MG/NS 500 ML IVPB IV NR ×2 (07:00)
--- NOTE | 2018-09-21 07:51 | Progress Note-Hospitalist ---
Subjective HPI/CC On Admission Date Seen by Provider: Sep 21, 2018 Time Seen by Provider: 07:46 Pt is a 78yoCM with a PMH amyloidosis who presented to the ER for confusion, syncope, and altered mental status. I was called to bedside shortly after arrival to the floor due to a syncopal episode while on the toilet. He is able to tell me some limited history and his is at bedside to fill in some details. Reportedly he just started chemo for amyloidosis with Dr Markham last week. He has had poor appetite and little intake over the weekend due to this and then began to hallucinate prompting him to seek evaluation. She state shis chemo regimen is cytaxin and velcade and she has already called and spoke with his oncologist at who believe this to be due to his chemo. He as found to be hyponatremic at 117 and admitted for further management. Currently he is oriented x4 and denies any hallucinations at this time. Subjective/Events-last exam Pt reports feeling better today. Appetite up as well. Would like to sit up in chair. Focused Exam Lactate Level 09/21/18 06:25: Lactic Acid Level 0.67 Lactic Acid Level Laboratory Tests Test 09/21/18 06:25 Lactic Acid Level 0.67 MMOL/L (0.50-2.00) Objective Exam Vital Signs Vital Signs Date Time Temp Pulse Resp B/P (MAP) Pulse Ox O2 Delivery O2 Flow Rate FiO2 09/21/18 06:00 78 27 95 Nasal Cannula 3.00 09/21/18 03:00 97.6 Capillary Refill : Less Than 3 SecondsLess Than 3 Seconds General Appearance: No Apparent Distress, WD/WN Respiratory: No Accessory Muscle Use, No Respiratory Distress, Decreased Breath Sounds (in bases); No Wheezing Cardiovascular: Regular Rate, Rhythm, No Murmur Gastrointestinal: Normal Bowel Sounds Extremity: No Calf Tenderness, No Pedal Edema Neurologic/Psychiatric: Alert, Oriented x3, Normal Mood/Affect Results/Procedures Lab Laboratory Tests 09/20/18 10:52 09/20/18 12:30 09/20/18 14:30 09/20/18 18:00 09/20/18 21:55 09/21/18 03:00 Patient resulted labs reviewed. Imaging: Reviewed Imaging Report Assessment/Plan Assessment and Plan Assess & Plan/Chief Complaint Hyponatremia Diagnosis/Problems Diagnosis/Problems (1) Hyponatremia Status: Acute Assessment & Plan: Na 121- likely an acute drop Appears to be chronically low in the high 120s Continue hypertonic saline Mentation improving (2) Delirium Status: Acute Assessment & Plan: Improving- no longer hallucinating Will check home meds when available to make sure not contributing Was previously taking Lasix so will hold (3) Syncope and collapse Status: Acute Assessment & Plan: Syncopal episode on toilet on 08/19 Monitor on telemetry Orthostatics Positive Continue IVF (4) Amyloidosis Status: Acute Assessment & Plan: Follows with [facility] and started on chemo last week Chemo through cancer [facility] here with Dr Markham Oncology consulted, appreciate recs Qualifiers: Amyloidosis type: unspecified amyloidosis Qualified Codes: E85.9 - Amyloidosis, unspecified (5) Hypomagnesemia Status: Acute Assessment & Plan: Replaced Clinical Quality Measures DVT/VTE Risk/Contraindication: Risk Factor Score Per Nursin RFS Level Per Nursing on Admit: 4+=Very High BRYSON CHUNG MD Sep 21, 2018 7:51 am
--- NOTE | 2018-09-21 08:01 | Diagnostic Imaging Report ---
Indication: Shortness of breath Exam: Portable chest at 3:03 AM Findings: The left upper extremity PICC line tip projects over the SVC. There are postop changes from CABG surgery. There is a large right pleural effusion that has increased in volume compared to the previous day. Impression: Enlarging right pleural effusion with associated right basilar atelectasis. Dictated by: Dictated on workstation # [id number]
[2018-09-21] MEDS: DOXYCYCLINE 100 MG (VIBRAMYCIN) TABLET PO SCH ×2 (08:48→20:58)
[2018-09-21] MEDS: ACYCLOVIR 400 MG TABLET (ZOVIRAX) PO SCH ×2 (08:48→20:58)
[2018-09-21] MEDS ORDERED: HYDROCORTISONE 20 MG (CORTEF) TAB PO SCH ×2 (09:00→21:00)
--- NOTE | 2018-09-21 09:42 | CONSULTATION REPORT ---
DATE OF SERVICE: 09/21/2018 ATTENDING PHYSICIAN: Dr. Nelson and Dr. Gu. SUMMARY: After reviewing the patient's records, interviewing him and examining him, this is a 78-year-old white man known to me previously whom I have done a TURP about four years ago. He was doing very well and then quit following up at the office in 2016. He has been admitted with a combination of problems among which syncope, severe hyponatremia, amyloidosis and delirium as well as hypomagnesemia. He has some issues of passing urine and a catheter was inserted. Amount obtained not documented by the night nurse. The patient denies any voiding symptoms since the TURP. He also has some history of overactive bladder. He is not on any medications for either one. IMPRESSION: Urinary retention, history of BPH and overactive bladder. PLAN: Start him on Flomax 0.4 mg daily. Treat any constipation. Consider correction of the electrolytes. We will leave the catheter at least for 48 to 72 hours to let the Flomax build up in his system and then we will give him a trial of voiding after that unless he is anxious to get the catheter out, we will act sooner. Plan was fully explained to the patient. Thank you for letting me participate in the care of this patient. We will follow with you. Job ID: [id number] DocumentID: [id number] Dictated Date: 09/21/2018 08:53:10 Glass Finisher Date: 09/21/2018 09:41:36 Dictated By: SALINAS CABELLO MD
[2018-09-21] MEDS: RT-ALBUTEROL/IPRATROPIUM 3 ML (DUONEB) VIAL INH SCH ×4 (09:55→22:24)
[2018-09-21 10:15] LABS: BUN/CREATININE RATIO 24; CALCIUM 7.4 MG/DL (8.5-10.1); CARBON DIOXIDE 27 MMOL/L (21-32); CHLORIDE 90 MMOL/L (98-107); CREATININE SERUM 0.68 MG/DL (0.60-1.30); GFR ESTIMATED > 60; GLUCOSE 113 MG/DL (70-105); MAGNESIUM 1.9 MG/DL (1.8-2.4); POTASSIUM 3.7 MMOL/L (3.6-5.0)
[2018-09-21 10:25] LABS: SODIUM 122 MMOL/L (135-145)
[2018-09-21] MEDS ORDERED: HYDROCORTISONE 100 MG/2 ML (Solu-CORTEF) VIAL IV NR (10:45)
[2018-09-21 13:38] LABS: BUN/CREATININE RATIO 24; CALCIUM 7.6 MG/DL (8.5-10.1); CARBON DIOXIDE 25 MMOL/L (21-32); CHLORIDE 92 MMOL/L (98-107); CREATININE SERUM 0.71 MG/DL (0.60-1.30); GFR ESTIMATED > 60; GLUCOSE 118 MG/DL (70-105)
[2018-09-21 13:44] LABS: SODIUM 124 MMOL/L (135-145)
--- NOTE | 2018-09-21 16:05 | Oncology Progress Note ---
Subjective Date Seen by a Provider: Sep 21, 2018 Time Seen by a Provider: 16:04 Subjective/Events-last exam Mr. 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 He has improved significantly with gradual sodium correction with hypertonic saline and fluid restriction. His daughter is by his side and notes increased lucidity. Patient denies any significant symptoms at this time. Data Review Labs Laboratory Tests 09/20/18 18:00 09/20/18 21:55 09/21/18 03:00 09/21/18 09:35 09/21/18 13:05 Laboratory Tests 09/19/18 06:42: White Blood Count 11.5H, Hematocrit 39L, Mean Corpuscular Hemoglobin Concent 37H , Mean Platelet Volume 11.6H, Neutrophils (%) (Auto) 90H, Lymphocytes (%) (Auto ) 4L, Neutrophils # (Auto) 10.3H, Lymphocytes # (Auto) 0.5L, Sodium Level 117*L , Potassium Level 3.4L, Chloride Level 82L, Calcium Level 7.8L, Magnesium Level 1.5L, Total Bilirubin 1.1H, Aspartate Amino Transf (AST/SGOT) 56H, Total Protein 3.6L, Albumin 2.1L 09/19/18 06:54: 09/19/18 09:37: Glucometer 124H 09/19/18 09:38: Urine RBC (Auto) 3+H, Urine Crystals PRESENTH, Urine Calcium Oxalate Crystals FEWH, Urine Hyaline Casts 10-25H 09/19/18 12:15: Sodium Level 117*L, Chloride Level 86L, Glucose Level 124H, Calcium Level 7.5L 09/20/18 05:37: Sodium Level 118*L, Chloride Level 89L, Calcium Level 7.5L, White Blood Count 11.5H, Hematocrit 39L, Mean Platelet Volume 12.2H, Neutrophils (%) (Auto) 88H, Lymphocytes (%) (Auto) 5L, Neutrophils # (Auto) 10.1H, Lymphocytes # (Auto) 0.6L , Aspartate Amino Transf (AST/SGOT) 50H, Total Protein 3.5L, Albumin 1.9L 09/20/18 10:52: Sodium Level 119*L, Chloride Level 88L, Calcium Level 7.7L, B-Type Natriuretic Peptide 723.5H 09/20/18 12:30: Sodium Level 117*L, Chloride Level 88L, Calcium Level 7.5L 09/20/18 14:30: Sodium Level 119*L, Chloride Level 90L, Calcium Level 7.6L 09/20/18 18:00: Sodium Level 119*L, Chloride Level 90L, Calcium Level 7.5L, Magnesium Level 1.7L 09/20/18 21:55: Sodium Level 120*L, Chloride Level 90L, Calcium Level 7.6L 09/21/18 03:00: Sodium Level 121*L, Chloride Level 91L, Calcium Level 7.8L, Magnesium Level 1.6L , White Blood Count 13.1H, Mean Platelet Volume 12.4H, Neutrophils (%) (Auto) 90H, Lymphocytes (%) (Auto) 3L, Neutrophils # (Auto) 11.8H, Lymphocytes # (Auto ) 0.3L 09/21/18 06:25: 09/21/18 06:29: Urine Specific [place] 1.025H, Urine Leukocyte Esterase 1+H, Urine RBC (Auto) 5+ H, Urine RBC >100H, Urine Hyaline Casts 2-5H 09/21/18 09:35: Sodium Level 122*L, Chloride Level 90L, Glucose Level 113H, Calcium Level 7.4L 09/21/18 13:05: Sodium Level 124*L, Chloride Level 92L, Glucose Level 118H, Calcium Level 7.6L Physical Exam Vital Signs Vital Signs - First Documented 09/19/18 09/19/18 06:42 08:05 Temp 98.3 Pulse 80 Resp 19 B/P (MAP) 134/97 (109) Pulse Ox 98 O2 Delivery Nasal Cannula O2 Flow Rate 2.00 Capillary Refill : Less Than 3 SecondsLess Than 3 Seconds Height, Weight, BMI Height: 5'10.00" Weight: 180lbs. 2.0oz. 81.458578zt; 25.3 BMI Method:Stated General Appearance: No Apparent Distress, WD/WN Eyes: Bilateral Eye Normal Inspection HEENT: Normal ENT Inspection, Pharynx Normal Neck: Normal Inspection Respiratory: Chest Non Tender, No Accessory Muscle Use, No Respiratory Distress , Decreased Breath Sounds (RLL) Cardiovascular: Regular Rate, Rhythm, No Edema, No Gallop, No JVD, No Murmur Gastrointestinal: Normal Bowel Sounds, No Organomegaly, No Pulsatile Mass, Non Tender, Soft Extremity: Normal Inspection, Non Tender, No Pedal Edema Neurologic/Psychiatric: Alert, Oriented x3, No Motor/Sensory Deficits ( excepted decreased visual acuity), Normal Mood/Affect Skin: Normal Color, Warm/Dry Lymphatic: No Adenopathy Focused Exam Lactate Level 09/21/18 06:25: Lactic Acid Level 0.67 Impression & Plan Impression & Plan 78 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 Admitted with hyponatremia secondary to SIADH. Currently improving on fluid restriction and hypertonic saline. Causes of SIADH that could be applicable to Mr. Whitt are multiple and include malignancy, pulmonary disease, and medications. It may be difficult to ever determine what is the causative agent, but the only two that are potentially immediately reversible are pulmonary disease and medications. His amyloidosis treatment is already being held. The pleural effusion/pleuritis is of unclear etiology, but we are treating empirically with antibiotics at the moment. It may be useful to check his TSH, as pituitary deficiencies could also be a source. I will follow up with the patient in clinic when he is discharged from the hospital. Thank you for allowing me to participate in the care of Mr. Whitt. Clinical Quality Measures DVT/VTE Risk/Contraindication: Risk Factor Score Per Nursin RFS Level Per Nursing on Admit: 4+=Very High STANLEY RUELAS MD Sep 21, 2018 16:05
[2018-09-21 17:13] LABS: BUN/CREATININE RATIO 26; CALCIUM 7.8 MG/DL (8.5-10.1); CARBON DIOXIDE 22 MMOL/L (21-32); CHLORIDE 93 MMOL/L (98-107); CREATININE SERUM 0.74 MG/DL (0.60-1.30); GFR ESTIMATED > 60; GLUCOSE 137 MG/DL (70-105); POTASSIUM 4.3 MMOL/L (3.6-5.0)
[2018-09-21 17:19] LABS: SODIUM 123 MMOL/L (135-145)
[2018-09-21] MEDS: TAMSULOSIN 0.4 MG (FLOMAX) CAP PO SCH (17:31)
[2018-09-21] MEDS: ACETAMINOPHEN 325 MG TABLET PO PRN (19:44)
[2018-09-21] MEDS: VANCOMYCIN 1 GM/NS 250 ML IVPB IV SCH ×2 (19:47)
[2018-09-21] MEDS: HYDROCORTISONE 20 MG (CORTEF) TAB PO SCH (20:58)
[2018-09-21] MEDS: MELATONIN 3 MG TABLET PO PRN (20:58)
[2018-09-21] MEDS: ROSUVASTATIN 20 MG (CRESTOR) TABLET PO SCH (20:59)
[2018-09-21 21:32] LABS: BUN/CREATININE RATIO 23; CALCIUM 7.6 MG/DL (8.5-10.1); CARBON DIOXIDE 19 MMOL/L (21-32); CHLORIDE 94 MMOL/L (98-107); CREATININE SERUM 0.84 MG/DL (0.60-1.30); GFR ESTIMATED > 60; GLUCOSE 142 MG/DL (70-105); POTASSIUM 4.2 MMOL/L (3.6-5.0)
[2018-09-21 21:34] LABS: SODIUM 124 MMOL/L (135-145)
[2018-09-22] VITALS (24 sets, daily range): BP systolic 87–138; BP diastolic 54–94
[2018-09-22 00:46] LABS: BUN/CREATININE RATIO 24; CALCIUM 7.5 MG/DL (8.5-10.1); CARBON DIOXIDE 20 MMOL/L (21-32); CHLORIDE 95 MMOL/L (98-107); CREATININE SERUM 0.85 MG/DL (0.60-1.30); GFR ESTIMATED > 60; GLUCOSE 144 MG/DL (70-105); POTASSIUM 4.2 MMOL/L (3.6-5.0)
[2018-09-22 00:50] LABS: SODIUM 123 MMOL/L (135-145)
[2018-09-22] MEDS: RT-ALBUTEROL/IPRATROPIUM 3 ML (DUONEB) VIAL INH SCH ×5 (01:38→21:18)
[2018-09-22 03:41] LABS: BASOPHILS % (AUTO) 0 % (0-10); EOSINOPHILS % (AUTO) 0 % (0-10); HEMATOCRIT 34 % (40-54); HEMOGLOBIN 12.2 G/DL (13.3-17.7); LYMPHOCYTES # (AUTO) 0.5 X 10^3 (1.0-4.0); LYMPHOCYTES % (AUTO) 4 % (12-44); MEAN CORPUSCULAR HEMOGLOBIN 33 PG (25-34); MEAN CORPUSCULAR HGB CONC 36 G/DL (32-36); MEAN CORPUSCULAR VOLUME 90 FL (80-99); MEAN PLATELET VOLUME 11.6 FL (7.4-10.4); MONOCYTES # (AUTO) 0.9 X 10^3 (0.0-1.0); MONOCYTES % (AUTO) 7 % (0-12); NEUTROPHILS # (AUTO) 11.3 X 10^3 (1.8-7.8); NEUTROPHILS % (AUTO) 89 % (42-75); PLATELET COUNT 160 10^3/uL (130-400); RED BLOOD COUNT 3.74 10^6/uL (4.35-5.85); RED CELL DISTRIBUTION WIDTH 13.3 % (10.0-14.5); WHITE BLOOD COUNT 12.7 10^3/uL (4.3-11.0)
[2018-09-22 04:02] LABS: BUN/CREATININE RATIO 24; CARBON DIOXIDE 20 MMOL/L (21-32); GFR ESTIMATED > 60; GLUCOSE 133 MG/DL (70-105); MAGNESIUM 1.6 MG/DL (1.8-2.4); POTASSIUM 3.8 MMOL/L (3.6-5.0); SODIUM 139 MMOL/L (135-145)
[2018-09-22] MEDS: KCL 20 MEQ TAB (K-DUR) PO SCH (04:50)
[2018-09-22] MEDS: POTASSIUM CL 10MEQ/50ML IVPB 50 ML IV SCH (04:50)
[2018-09-22 04:51] LABS: CHLORIDE 110 MMOL/L (98-107)
[2018-09-22] MEDS: MAGNESIUM 1 GM/100 ML IVPB 100 ML IV SCH ×3 (04:52→06:08)
[2018-09-22] MEDS: PIPERACILLIN SODIUM/TAZOBACTAM 4.5 GM in NS (IVPB) 100 ML IV SCH ×3 (06:13→22:06)
--- NOTE | 2018-09-22 06:13 | Pulmonary Progress Note ---
Subjective Time Seen by a Provider: 06:10 Subjective/Events-last exam No complications noted. Pt is still hallucinating Sepsis Event Evaluation Height, Weight, BMI Height: 5'10.00" Weight: 180lbs. 2.0oz. 81.543181zc; 25.3 BMI Method:Stated Focused Exam Lactate Level 09/21/18 06:25: Lactic Acid Level 0.67 Exam Exam Vital Signs Date Time Temp Pulse Resp B/P (MAP) Pulse Ox O2 Delivery O2 Flow Rate FiO2 09/22/18 04:44 97.6 09/22/18 04:36 100 Room Air 09/22/18 04:00 80 17 96/61 (73) 97 Room Air 09/22/18 03:00 80 14 88/54 (65) 97 Room Air 09/22/18 02:00 81 14 87/54 (65) 94 Room Air 09/22/18 01:39 93 Room Air 09/22/18 01:00 80 12 94/56 (69) 94 Room Air 09/22/18 01:00 80 09/22/18 00:32 97 Room Air 0.00 09/22/18 00:00 80 14 99/64 (76) 97 Room Air 09/21/18 23:00 81 15 101/65 (77) 96 Room Air 09/21/18 22:00 81 19 101/69 (80) 95 Room Air 09/21/18 21:00 85 13 114/72 (86) 95 Room Air 09/21/18 20:00 87 22 127/66 (86) 95 Room Air 09/21/18 19:45 97 Room Air 09/21/18 19:30 97.7 Room Air 09/21/18 19:00 87 23 101/65 (77) 98 Room Air 09/21/18 19:00 90 09/21/18 18:49 100 Room Air 09/21/18 18:00 88 24 89/70 (76) 90 Nasal Cannula 3.00 09/21/18 17:00 86 21 98/67 (77) 94 Nasal Cannula 3.00 09/21/18 16:10 97.1 09/21/18 16:00 85 16 94/61 (72) 90 Nasal Cannula 3.00 09/21/18 15:16 Room Air 09/21/18 15:00 85 28 99/49 (66) 94 Nasal Cannula 3.00 09/21/18 14:30 99 Nasal Cannula 3.00 09/21/18 14:00 81 22 111/84 (93) 94 Nasal Cannula 3.00 09/21/18 13:35 97.2 09/21/18 13:00 80 09/21/18 13:00 80 23 115/80 (92) 95 Nasal Cannula 3.00 09/21/18 12:00 77 19 117/76 (90) 91 Nasal Cannula 3.00 09/21/18 12:00 Nasal Cannula 3.00 09/21/18 11:00 75 20 101/64 (76) 81 Nasal Cannula 3.00 09/21/18 10:00 74 23 101/64 (76) Nasal Cannula 3.00 09/21/18 09:55 92 Room Air 09/21/18 09:00 74 20 91 Nasal Cannula 3.00 09/21/18 08:00 97 Nasal Cannula 3.00 09/21/18 08:00 75 19 97 Nasal Cannula 3.00 09/21/18 07:00 75 09/21/18 07:00 98.1 09/21/18 07:00 75 19 96 Nasal Cannula 3.00 I & O 09/22/18 07:00 Intake Total 3230 ml Output Total 1935 ml Balance 1295 ml Height & Weight Height: 5'10.00" Weight: 180lbs. 2.0oz. 81.972220ie; 25.3 BMI Method:Stated General Appearance: No Apparent Distress, WD/WN HEENT: Normal ENT Inspection, Pharynx Normal Neck: Normal Inspection Respiratory: Chest Non Tender, No Accessory Muscle Use, No Respiratory Distress , Decreased Breath Sounds (RLL) Cardiovascular: Regular Rate, Rhythm, No Edema, No Gallop, No JVD, No Murmur Capillary Refill: Less Than 3 Seconds Extremity: Normal Inspection, Non Tender, No Pedal Edema Neurologic/Psychiatric: Alert, Oriented x3, No Motor/Sensory Deficits ( excepted decreased visual acuity), Normal Mood/Affect Skin: Normal Color, Warm/Dry Lymphatic: No Adenopathy Results Lab Laboratory Tests 09/20/18 10:52 09/20/18 12:30 09/20/18 14:30 09/20/18 18:00 09/20/18 21:55 09/21/18 03:00 09/21/18 09:35 09/21/18 13:05 09/21/18 16:40 09/21/18 20:58 09/22/18 00:24 09/22/18 03:15 Assessment/Plan Assessment/Plan Severe acute on chronic hyponatremia -09/13/18 Na was 129. -D/C Hypertonic Saline Leukocytosis - r/o pneumonia -Ray culture - vanco and zosyn Orthostatic hypotension with Hx of adrenal insuff -Pt is on home increased to cortisone 30mg BID and give solucortef 100mg IV X 1 Hypomag -monitor Pulmonary edema- worsening SOB --S/p lasix Dysuria s/p dailey cath Delirium Syncope/fall Amyloidosis s/p chemo Will transfer pt back to 4th floor. CLAY MATIAS DO Sep 22, 2018 06:13
[2018-09-22] MEDS: VANCOMYCIN 1 GM/NS 250 ML IVPB IV SCH ×4 (06:18→20:18)
--- NOTE | 2018-09-22 07:44 | Progress Note-Hospitalist ---
Subjective HPI/CC On Admission Date Seen by Provider: Sep 22, 2018 Time Seen by Provider: 07:40 Pt is a 78yoCM with a PMH amyloidosis who presented to the ER for confusion, syncope, and altered mental status. I was called to bedside shortly after arrival to the floor due to a syncopal episode while on the toilet. He is able to tell me some limited history and his is at bedside to fill in some details. Reportedly he just started chemo for amyloidosis with Dr Markham last week. He has had poor appetite and little intake over the weekend due to this and then began to hallucinate prompting him to seek evaluation. She state shis chemo regimen is cytaxin and velcade and she has already called and spoke with his oncologist at who believe this to be due to his chemo. He as found to be hyponatremic at 117 and admitted for further management. Currently he is oriented x4 and denies any hallucinations at this time. Subjective/Events-last exam Pt reports doing well. states still having some auditory hallucinations- heard music playing this morning that wasn't. Otherwise no complaints. Focused Exam Lactate Level Objective Exam Vital Signs Vital Signs Date Time Temp Pulse Resp B/P (MAP) Pulse Ox O2 Delivery O2 Flow Rate FiO2 09/24/18 07:14 98 Room Air 09/24/18 06:00 66 16 135/78 (97) 09/24/18 00:56 97.5 09/22/18 00:32 0.00 Capillary Refill : Less Than 3 SecondsLess Than 3 Seconds General Appearance: No Apparent Distress, WD/WN, Chronically ill Respiratory: Lungs Clear, No Respiratory Distress Cardiovascular: Regular Rate, Rhythm, No Murmur Gastrointestinal: Normal Bowel Sounds, Soft Neurologic/Psychiatric: Alert, Oriented x3 Results/Procedures Lab Laboratory Tests 09/23/18 08:08 09/23/18 09:30 09/23/18 11:58 09/24/18 04:50 Patient resulted labs reviewed. Imaging: Reviewed Imaging Report Assessment/Plan Assessment and Plan Assess & Plan/Chief Complaint Hyponatremia Diagnosis/Problems Diagnosis/Problems (1) Hyponatremia Status: Acute Assessment & Plan: Na 139 today Trend Off hypertonic saline Mentation improving (2) Delirium Status: Acute Assessment & Plan: Improving but still having occasional hallucinations (3) Syncope and collapse Status: Resolved Assessment & Plan: Syncopal episode on toilet on 08/19 Monitor on telemetry Orthostatics Positive Continue IVF (4) Amyloidosis Status: Acute Assessment & Plan: Follows with [facility] and started on chemo last week Chemo through cancer [facility] here with Dr Markham Oncology consulted, appreciate recs Qualifiers: Amyloidosis type: unspecified amyloidosis Qualified Codes: E85.9 - Amyloidosis, unspecified (5) Hypomagnesemia Status: Acute Assessment & Plan: Replaced (6) Weakness Assessment & Plan: states has been weak for over a year Worsened recently by chemo PT/OT consulted IRU consult Clinical Quality Measures DVT/VTE Risk/Contraindication: Risk Factor Score Per Nursin RFS Level Per Nursing on Admit: 4+=Very High BRYSON CHUNG MD Sep 22, 2018 7:44 am
[2018-09-22] MEDS: ACYCLOVIR 400 MG TABLET (ZOVIRAX) PO SCH ×2 (07:47→20:19)
[2018-09-22] MEDS: HYDROCORTISONE 20 MG (CORTEF) TAB PO SCH ×2 (07:47→20:20)
[2018-09-22] MEDS: DOXYCYCLINE 100 MG (VIBRAMYCIN) TABLET PO SCH ×2 (07:47→20:19)
[2018-09-22 09:22] LABS: BUN/CREATININE RATIO 21; CALCIUM 7.4 MG/DL (8.5-10.1); CARBON DIOXIDE 21 MMOL/L (21-32); CHLORIDE 96 MMOL/L (98-107); CREATININE SERUM 0.91 MG/DL (0.60-1.30); GFR ESTIMATED > 60; GLUCOSE 147 MG/DL (70-105); POTASSIUM 4.2 MMOL/L (3.6-5.0)
[2018-09-22 09:27] LABS: SODIUM 124 MMOL/L (135-145)
[2018-09-22] MEDS ORDERED: FUROSEMIDE 40 MG/4 ML INJ (LASIX) IVP NR (09:45)
[2018-09-22] MEDS ORDERED: KCL 10 MEQ TAB (MICRO K) PO NR (09:45)
--- NOTE | 2018-09-22 10:17 | Diagnostic Imaging Report ---
INDICATION: Dyspnea. TECHNIQUE: Single view chest 3:52 AM. CORRELATION STUDY: 09/21/2018 FINDINGS: Patient is poststernotomy. Cardiac enlargement. Vascular overall stable. Right pleural effusion lung consolidation of the right lung base appearing relatively stable. Small left pleural effusion, minimal atelectasis or infiltrate at its base. IMPRESSION: 1. Combination of effusion along with atelectasis or infiltrate lung bases right greater than left, stable on the right, perhaps slightly increased on the left. Dictated by: Dictated on workstation # [id number]
[2018-09-22] MEDS: SODIUM CHLORIDE 3% 500 ML IV SCH (10:36)
--- NOTE | 2018-09-22 10:37 | Occ Therapy Progress Note ---
Therapy Progress Note Pt on nursing hold for medical reasons. Will see him tomorrow. CASSY HARGROVE OT Sep 22, 2018 10:37
[2018-09-22] MEDS ORDERED: IBUPROFEN TABLET 200 MG TAB PO PRN (10:45)
--- NOTE | 2018-09-22 10:50 | Physical Therapy Progress Note ---
Therapy Progress Note Patient on hold per RN secondary to critical labs and BP. PT will continue to monitor patient status and evaluate when deemed medically stable. RUDDY BARRIENTOS PT Sep 22, 2018 10:50
[2018-09-22 12:31] LABS: BUN/CREATININE RATIO 21; CALCIUM 7.6 MG/DL (8.5-10.1); CARBON DIOXIDE 21 MMOL/L (21-32); CHLORIDE 96 MMOL/L (98-107); GFR ESTIMATED > 60; GLUCOSE 145 MG/DL (70-105); POTASSIUM 4.1 MMOL/L (3.6-5.0)
[2018-09-22 12:32] LABS: SODIUM 125 MMOL/L (135-145)
--- NOTE | 2018-09-22 15:00 | Physical Therapy Evaluation ---
PT Evaluation-General Medical Diagnosis Admission Date Sep 19, 2018 at 08:10 Medical Diagnosis: hyponatremia, confusion, syncope Onset Date: Sep 19, 2018 Therapy Diagnosis Therapy Diagnosis: generalized weakness/debility Height/Weight Height (Feet): 5 Height (Inches): 10.00 Weight (Pounds): 190 Weight (Ounces): 0.6 Precautions Precautions/Isolations: Seizure, Fall Prevention, Standard Precautions, Pressure Ulcer Weight Bear Status Right Lower Extremity: Right Full Weight Bearing Left Lower Extremity: Left Full Weight Bearing Referral Physician: Omar Reason for Referral: Evaluation/Treatment Medical History Pertinent Medical History: CABG, CAD, HTN Additional Medical History elevated cholesterol/prostatectomy/amyloidosis Current History EMS secondary to syncopal episode, decreased urine output, decreased oral intake Reviewed History: Yes Social History Home: Single Level Current Living Status: Spouse Prior/Core FIM Prior Level of Function Functional [place] Measure 0=Not Assessed/NA 4=Minimal Assistance 1=Total Assistance 5=Supervision or Setup 2=Maximal Assistance 6=Modified [place] 3=Moderate Assistance 7=Complete IndependenceIRFPAI Quality Coding Scale 6 Independent with activity with or without an assistive device 5 Patient requires set up or clean up by helper. Patient completes activity by themselves 4 Supervision or touching assist (CGA). [place] provide cues , steadying assist 3 The helper provides less than half the effort to complete the activity 2 The helper provides more than half the effort to complete the activity 1 Dependent. The helper does all the effort to complete an activity 7 Patient refused to complete or attempt activity 9 The patient did not perform the activity before the current illness or injury 88 Not attempted due to Medical conditions or safety concerns Bed Mobility: 7 Transfers (B,C,W/C) (FIM): 7 Gait: 7 PT Evaluation-Current Subjective Patient reluctantly agrees to PT. Pain Numeric Pain Scale: 0-No Pain Location: No Pain Reported Objective Patient Orientation: Person, Time, Situation Problem Solving: Fair Attachments: Guan Catheter, IV ROM/Strength ROM Lower Extremities noted edema all extremities Strength Lower Extremities 3/5 grossly bilaterally Integumentary/Posture Integumentary refer to nursing notes Bladder Incontinence: Guan Cath Posture WFL Neuromuscular (Tone, Coordination, Reflexes) diminished coordination due to weakness Sensory Vision: Wears Glasses Hearing: Hearing Aid/Aides Sensation Right Lower Extremit: Intact Sensation Left Lower Extremity: Intact Transfers Functional [place] Measure 0=Not Assessed/NA 4=Minimal Assistance 1=Total Assistance 5=Supervision or Setup 2=Maximal Assistance 6=Modified [place] 3=Moderate Assistance 7=Complete [place] Transfers (B, C, W/C) (FIM): 3 Scootin Rollin Supine to/from Sit: 3 Sit to/from Stand: 3 Gait Mode of Locomotion: Walk Anticipated Mode of Locomotion: Walk Balance Sitting Static: Normal Sitting Dynamic: Normal Standing Static: Fair Standing Dynamic: Fair Treatment Orthostatic BP tested during treatment: Supine: 91/75 Sit: 74/56 Stand: 108/86 Assessment/Needs 78 y.o. male, will benefit from skilled PT to address functional strength and mobility to improve current LOF. Patient is currently limited due to critical labs, decreased BP and general debility. Rehab Potential: Fair PT Short Term Goals Short Term Goals Time Frame: Sep 30, 2018 Transfers (B,C,W/C) (FIM): 4 Gait (FIM): 2 Distance (FIM): 2=937-28 ft Gait Distance Comment: 100' Gait Level of Assist: 4 Gait Assistive Device: FWW PT Medical Coder Goals Correction Goals PT Correction Goals Time Frame: Oct 08, 2018 Transfers (B,C,W/C) (FIM): 6 Gait (FIM): 6 Gait distance (FIM): 3=150 ft Distance: 200' Gait Level of Assist: 6 Gait Assistive Device: FWW PT Plan Problem List Problem List: Activity Tolerance, Functional Strength, Safety, Balance, Gait, Transfer, Bed Mobility Treatment/Plan Treatment Plan: Continue Plan of Care Treatment Plan: Bed Mobility, Education, Functional Activity Angelo, Functional Strength, Gait, Safety, Therapeutic Exercise, Transfers Treatment Duration: Oct 08, 2018 Frequency: 6 times per week Estimated Hrs Per Day: .25 hour per day Patient and/or Family Agrees t: Yes Discharge Recommendations Therapy D/C Recommendations: Acute Rehab, Senior Living (TCU/NH) Time/GCodes Time In: 1430 Time Out: 1445 Total Billed Treatment Time: 15 [facility] RUDDY BARRIENTOS PT Sep 22, 2018 15:00
[2018-09-22 16:08] LABS: BUN/CREATININE RATIO 20; CALCIUM 7.6 MG/DL (8.5-10.1); CARBON DIOXIDE 21 MMOL/L (21-32); CHLORIDE 97 MMOL/L (98-107); CREATININE SERUM 0.95 MG/DL (0.60-1.30); GFR ESTIMATED > 60; GLUCOSE 133 MG/DL (70-105); POTASSIUM 4.3 MMOL/L (3.6-5.0)
[2018-09-22 16:12] LABS: SODIUM 125 MMOL/L (135-145)
[2018-09-22] MEDS ORDERED: TROUGH ORDER-PHARMACY XX NR (18:00)
[2018-09-22] MEDS: TAMSULOSIN 0.4 MG (FLOMAX) CAP PO SCH (18:02)
[2018-09-22] MEDS: POLYETHYLENE GLYCOL 17 GM (MIRALAX) PACK PO PRN (18:31)
[2018-09-22] MEDS: ROSUVASTATIN 20 MG (CRESTOR) TABLET PO SCH (20:19)
[2018-09-22 20:54] LABS: BUN/CREATININE RATIO 22; CALCIUM 7.4 MG/DL (8.5-10.1); CARBON DIOXIDE 22 MMOL/L (21-32); CHLORIDE 97 MMOL/L (98-107); CREATININE SERUM 0.91 MG/DL (0.60-1.30); GFR ESTIMATED > 60; GLUCOSE 147 MG/DL (70-105); POTASSIUM 4.1 MMOL/L (3.6-5.0)
[2018-09-22 20:57] LABS: SODIUM 125 MMOL/L (135-145)
[2018-09-22] MEDS: MELATONIN 3 MG TABLET PO PRN (22:10)
[2018-09-23] VITALS (25 sets, daily range): BP systolic 67–132; BP diastolic 40–102
[2018-09-23 00:47] LABS: BUN/CREATININE RATIO 22; CALCIUM 7.3 MG/DL (8.5-10.1); CARBON DIOXIDE 21 MMOL/L (21-32); CHLORIDE 98 MMOL/L (98-107); GFR ESTIMATED > 60; GLUCOSE 148 MG/DL (70-105)
[2018-09-23 00:48] LABS: SODIUM 125 MMOL/L (135-145)
[2018-09-23] MEDS: RT-ALBUTEROL/IPRATROPIUM 3 ML (DUONEB) VIAL INH SCH ×7 (02:10→22:26)
[2018-09-23] MEDS: SODIUM CHLORIDE 3% 500 ML IV SCH (04:37)
[2018-09-23 04:42] LABS: BASOPHILS % (AUTO) 0 % (0-10); EOSINOPHILS # (AUTO) 0.1 10^3/uL (0.0-0.3); EOSINOPHILS % (AUTO) 1 % (0-10); HEMATOCRIT 33 % (40-54); HEMOGLOBIN 11.5 G/DL (13.3-17.7); LYMPHOCYTES # (AUTO) 0.7 X 10^3 (1.0-4.0); LYMPHOCYTES % (AUTO) 7 % (12-44); MEAN CORPUSCULAR HEMOGLOBIN 32 PG (25-34); MEAN CORPUSCULAR HGB CONC 35 G/DL (32-36); MEAN CORPUSCULAR VOLUME 91 FL (80-99); MEAN PLATELET VOLUME 11.4 FL (7.4-10.4); MONOCYTES # (AUTO) 0.7 X 10^3 (0.0-1.0); MONOCYTES % (AUTO) 7 % (0-12); NEUTROPHILS # (AUTO) 8.8 X 10^3 (1.8-7.8); NEUTROPHILS % (AUTO) 85 % (42-75); PLATELET COUNT 150 10^3/uL (130-400); RED BLOOD COUNT 3.58 10^6/uL (4.35-5.85); RED CELL DISTRIBUTION WIDTH 13.3 % (10.0-14.5); WHITE BLOOD COUNT 10.3 10^3/uL (4.3-11.0)
[2018-09-23 04:57] LABS: BUN/CREATININE RATIO 23; CALCIUM 7.5 MG/DL (8.5-10.1); CARBON DIOXIDE 22 MMOL/L (21-32); CHLORIDE 99 MMOL/L (98-107); CREATININE SERUM 0.87 MG/DL (0.60-1.30); GFR ESTIMATED > 60; GLUCOSE 137 MG/DL (70-105); MAGNESIUM 1.8 MG/DL (1.8-2.4); PHOSPHORUS 2.7 MG/DL (2.3-4.7); POTASSIUM 3.9 MMOL/L (3.6-5.0); SODIUM 126 MMOL/L (135-145)
--- NOTE | 2018-09-23 05:55 | Pulmonary Progress Note ---
Subjective Time Seen by a Provider: 05:59 Subjective/Events-last exam pt is complaining and is worried about weakness. Sepsis Event Evaluation Height, Weight, BMI Height: 5'10.00" Weight: 190lbs. 0.6oz. 86.468428dj; 25.3 BMI Method:Stated Focused Exam Lactate Level 09/21/18 06:25: Lactic Acid Level 0.67 Exam Exam Vital Signs Date Time Temp Pulse Resp B/P (MAP) Pulse Ox O2 Delivery O2 Flow Rate FiO2 09/23/18 05:00 78 23 123/87 (99) 100 Room Air 09/23/18 04:00 98.0 09/23/18 04:00 75 14 116/77 (90) 100 Room Air 09/23/18 04:00 100 Room Air 09/23/18 03:00 78 14 113/70 (84) 100 Room Air 09/23/18 02:10 100 Room Air 09/23/18 02:00 79 18 120/76 (91) 100 Room Air 09/23/18 01:00 80 09/23/18 01:00 80 15 100/63 (75) 100 Room Air 09/23/18 00:00 98.6 81 20 107/70 (82) 100 Room Air 09/23/18 00:00 100 Room Air 09/22/18 23:00 84 20 102/72 (82) 95 Room Air 09/22/18 22:00 81 15 92/64 (73) 96 Room Air 09/22/18 21:19 100 Room Air 09/22/18 21:00 81 24 110/79 (89) 99 Room Air 09/22/18 20:00 98.2 09/22/18 20:00 100 Room Air 09/22/18 20:00 80 13 103/59 (74) 95 Room Air 09/22/18 19:00 81 24 110/63 (79) 100 Room Air 09/22/18 19:00 81 09/22/18 18:58 98.0 09/22/18 18:45 100 Room Air 09/22/18 18:00 75 27 120/69 (86) 100 Room Air 09/22/18 17:00 76 19 123/74 (90) 100 Room Air 09/22/18 16:00 76 22 129/80 (96) 100 Room Air 09/22/18 15:06 100 Room Air 09/22/18 15:00 75 16 133/90 (104) 100 Room Air 09/22/18 14:00 76 16 115/69 (84) 99 Room Air 09/22/18 13:00 78 18 138/94 (109) 97 Room Air 09/22/18 12:56 79 09/22/18 12:38 97.1 09/22/18 12:15 96 Room Air 09/22/18 12:00 78 11 116/74 (88) 98 Room Air 09/22/18 11:00 77 22 119/89 (99) 100 Room Air 09/22/18 10:31 Room Air 09/22/18 10:00 77 24 90/58 (69) 100 Room Air 09/22/18 09:00 75 13 114/67 (83) 95 Room Air 09/22/18 08:12 96 Room Air 09/22/18 08:00 75 17 115/63 (80) 100 Room Air 09/22/18 07:56 97.3 09/22/18 07:00 75 09/22/18 07:00 75 39 102/64 (77) 95 Room Air 09/22/18 06:52 Room Air 09/22/18 06:00 78 13 106/65 (79) 94 Room Air I & O 09/23/18 07:00 Intake Total 1294 ml Output Total 555 ml Balance 739 ml Height & Weight Height: 5'10.00" Weight: 190lbs. 0.6oz. 86.309011zk; 25.3 BMI Method:Stated General Appearance: WD/WN, Anxious, Chronically ill, Moderate Distress HEENT: Normal ENT Inspection, Pharynx Normal Neck: Normal Inspection Respiratory: Lungs Clear, No Respiratory Distress Cardiovascular: Regular Rate, Rhythm, No Murmur Capillary Refill: Less Than 3 Seconds Extremity: Normal Inspection, Non Tender, No Pedal Edema Neurologic/Psychiatric: Alert, Oriented x3 Skin: Normal Color, Warm/Dry Lymphatic: No Adenopathy Results Lab Laboratory Tests 09/21/18 09:35 09/21/18 13:05 09/21/18 16:40 09/21/18 20:58 09/22/18 00:24 09/22/18 03:15 09/22/18 08:57 09/22/18 12:10 09/22/18 15:40 09/22/18 20:25 09/23/18 00:15 09/23/18 04:37 Assessment/Plan Assessment/Plan Severe acute on chronic hyponatremia -09/13/18 Na was 129. -Today Na is 126 yesterday morning repeat was 124 -Hep lock IVF -Give Lasix 20mg IV x 1 -Sodium is up to 126. repeat Na yesterday morning proved initial sodium was false lab Plural effusions -Will do thoracentesis Debility/weakness - pt is complaining and is worried about weakness. -Pt/ot -up to chair TID Diastolic CHF - grade 2 pneumonia -Ray culture - vanco and zosyn Orthostatic hypotension with Hx of adrenal insuff -Pt is on home increased to cortisone 30mg BID Dysuria s/p dailey cath Delirium Syncope/fall Amyloidosis s/p chemo Critical Care: Critically Ill Patient Time spent with patient (mins): 45 CLAY MATIAS DO Sep 23, 2018 05:55
[2018-09-23] MEDS ORDERED: NS IV 1000 ML 1,000 ML ONE (06:16)
[2018-09-23] MEDS: POTASSIUM CL 10MEQ/50ML IVPB 50 ML IV SCH (06:21)
[2018-09-23] MEDS: MAGNESIUM 1 GM/100 ML IVPB 100 ML IV SCH (06:23)
[2018-09-23] MEDS: KCL 20 MEQ TAB (K-DUR) PO SCH (06:23)
[2018-09-23] MEDS: PIPERACILLIN SODIUM/TAZOBACTAM 4.5 GM in NS (IVPB) 100 ML IV SCH ×3 (06:24→22:24)
[2018-09-23] MEDS ORDERED: PIPERACILLIN/TAZO 4.5 GM VIAL (ZOSYN) IV ONE (06:33)
[2018-09-23] MEDS: VANCOMYCIN 1 GM/NS 250 ML IVPB IV SCH ×4 (07:30→18:02)
[2018-09-23] MEDS: HYDROCORTISONE 20 MG (CORTEF) TAB PO SCH ×2 (08:22→20:32)
[2018-09-23] MEDS: DOXYCYCLINE 100 MG (VIBRAMYCIN) TABLET PO SCH ×2 (08:22→20:32)
[2018-09-23] MEDS: ACYCLOVIR 400 MG TABLET (ZOVIRAX) PO SCH ×2 (08:22→20:31)
[2018-09-23] MEDS: POLYETHYLENE GLYCOL 17 GM (MIRALAX) PACK PO PRN ×2 (08:23→18:08)
[2018-09-23] MEDS ORDERED: NS 250 ML (IVPB) BAG IV ONE (08:30)
[2018-09-23] MEDS ORDERED: RECEIVED CONTRAST (Hold Metformin) IV SCH (08:30)
[2018-09-23] MEDS ORDERED: IOHEXOL 350 MG/ML 100 ML (OMNIPAQUE 350) VIAL IV ONE (08:30)
[2018-09-23 08:41] LABS: BUN/CREATININE RATIO 22; CALCIUM 7.2 MG/DL (8.5-10.1); CARBON DIOXIDE 21 MMOL/L (21-32); CHLORIDE 101 MMOL/L (98-107); CREATININE SERUM 0.86 MG/DL (0.60-1.30); GFR ESTIMATED > 60; GLUCOSE 135 MG/DL (70-105); POTASSIUM 3.8 MMOL/L (3.6-5.0); SODIUM 128 MMOL/L (135-145)
--- NOTE | 2018-09-23 08:58 | Diagnostic Imaging Report ---
PROCEDURE: CT chest with contrast only. TECHNIQUE: Multiple contiguous axial images were obtained through the chest after administration of intravenous contrast. INDICATION: Pleural effusion. COMPARISON: Comparison is made with the prior CT of the chest from 05/13/2018. FINDINGS: There is a moderate to large right pleural effusion and small to moderate left pleural effusion. Right pleural fluid layers dependently to a thickness of 7.5 cm. Left pleural fluid measures to a thickness of approximately 6 cm. No pericardial fluid is identified. There is some compressive atelectasis in the right and left lower lobes, greater on the right. Changes of median sternotomy are noted. No definite axillary lymphadenopathy is seen. No definite hilar or mediastinal mass or lymphadenopathy is seen. There is diffuse edema identified in the subcutaneous tissues consistent with anasarca. IMPRESSION: 1. Bilateral pleural effusions, greatest on the right with associated bibasilar compressive atelectasis. 2. Anasarca. Dictated by: Dictated on workstation # [id number]
[2018-09-23] MEDS ORDERED: LIDOCAINE 1% INJ 20 ML 20 ML VIAL ONE (09:13)
[2018-09-23 10:01] LABS: BUN/CREATININE RATIO 21; CALCIUM 7.3 MG/DL (8.5-10.1); CARBON DIOXIDE 21 MMOL/L (21-32); CHLORIDE 101 MMOL/L (98-107); CREATININE SERUM 0.89 MG/DL (0.60-1.30); GFR ESTIMATED > 60; GLUCOSE 126 MG/DL (70-105); POTASSIUM 3.8 MMOL/L (3.6-5.0); SODIUM 129 MMOL/L (135-145)
--- NOTE | 2018-09-23 10:11 | Pulmonary Procedures ---
Pulmonary Procedures Date of Procedure Date of Service: Sep 23, 2018 Procedure: Right US guided complex thoracentesis Preop DX: pleural effusion post op DX: Same 1800cc of yellow fluid obtained Complications: None After informed consent obtained US was used to localize pleural fluid. Pt has bilateral R>L pleural effusions. Skin was anesthetized at approximately the 10th ICS posterior axillary line. Thoracentesis needle was advanced through the right 10th ICS posterior axillary line using US for guidance. Needle was removed and catheter left in place.1800cc of yellow fluid obtained using vacuum bottles. Catheter was then removed. Pt tolerated procedure well. No complications noted. CLAY MATIAS DO Sep 23, 2018 10:11
--- NOTE | 2018-09-23 10:29 | Diagnostic Imaging Report ---
INDICATION: Post thoracentesis. TECHNIQUE: A frontal chest was obtained at 1014 hours. COMPARISON: 09/22/2018. FINDINGS: The right pleural effusion is significantly smaller compared to the prior study with some minimal residual pleural fluid. There is no pneumothorax following thoracentesis. The heart is mildly enlarged. The left-sided PICC line is unchanged. There is mild bibasilar atelectasis. IMPRESSION: Significant decrease in the size of the right pleural effusion post thoracentesis with some mild residual. No pneumothorax is seen. There is bibasilar atelectasis. Dictated by: Dictated on workstation # [id number]
[2018-09-23 10:53] LABS: AMYLASE,BODY FLUID 9 U/L; BODY FLUID TRIGLYCERIDES 12 MG/DL; GLUCOSE,BODY FLUID 147 MG/DL; LDH,BODY FLUID 47 U/L; TOTAL PROTEIN,BODY FLUID < 0.8 G/DL
[2018-09-23] MEDS ORDERED: NS IV 1000 ML 1,000 ML IV ONE ×2 (11:00→13:15)
[2018-09-23 11:04] LABS: BODY FLUID APPEARENCE SLT CLDY; BODY FLUID COLOR YELLOW; BODY FLUID SOURCE THORACEN
[2018-09-23 11:05] LABS: BF OTHER CELLS 72 %; BODY FLUID RBC COUNT 57 /uL; BODY FLUID WBC TOTAL COUNT 47 /uL; LYMPHOCYTES,BODY FLUID 7 %
--- NOTE | 2018-09-23 11:25 | Physical Therapy Daily Note ---
PT Daily Note-Current Subjective Pt reports he is concerned about gaining his strength back. Wants to work with PT. Transfers Functional [place] Measure 0=Not Assessed/NA 4=Minimal Assistance 1=Total Assistance 5=Supervision or Setup 2=Maximal Assistance 6=Modified [place] 3=Moderate Assistance 7=Complete IndependenceIRFPAI Quality Coding Scale 6 Independent with activity with or without an assistive device 5 Patient requires set up or clean up by helper. Patient completes activity by themselves 4 Supervision or touching assist (CGA). [place] provide cues , steadying assist 3 The helper provides less than half the effort to complete the activity 2 The helper provides more than half the effort to complete the activity 1 Dependent. The helper does all the effort to complete an activity 7 Patient refused to complete or attempt activity 9 The patient did not perform the activity before the current illness or injury 88 Not attempted due to Medical conditions or safety concerns Sit to stand x 5 reps throughout treatment with min assist for all. Pt performed Stand and took a few steps to transfer to the chair with CONTROL ENGINEER, min assist. Weight Bearing Right Lower Extremity: Right Full Weight Bearing Left Lower Extremity: Left Full Weight Bearing Exercises Seated Therapy Exercises: Ankle pumps, Long arc quads, Hip flexion, Glut set Seated Reps: 15 (to promote functional actifvity as well as LE strength) Treatments Standing at edge of chair x 2 reps for 30-45 seconds each. BP low and monitored throughout. Nurse present. Guarded closely. Assessment Current Status: Good Progress Increaseing activity and mobility. Limited by BP and reports of dizziness when standing. PT Short Term Goals Short Term Goals Time Frame: Sep 30, 2018 Transfers (B,C,W/C) (FIM): 4 Gait (FIM): 2 Distance (FIM): 5=996-25 ft Gait Distance Comment: 100' Gait Level of Assist: 4 Gait Assistive Device: FWW PT Senior Living Goals Senior Living Goals PT Senior Living Goals Time Frame: Oct 08, 2018 Transfers (B,C,W/C) (FIM): 6 Gait (FIM): 6 Gait distance (FIM): 3=150 ft Distance: 200' Gait Level of Assist: 6 Gait Assistive Device: FWW PT Plan Problem List Problem List: Activity Tolerance, Functional Strength, Safety, Balance, Gait, Transfer, Bed Mobility Treatment/Plan Treatment Plan: Continue Plan of Care Treatment Plan: Bed Mobility, Education, Functional Activity [place], Functional Strength, Gait, Safety, Therapeutic Exercise, Transfers Treatment Duration: Oct 08, 2018 Frequency: 6 times per week Estimated Hrs Per Day: .25 hour per day Patient and/or Family Agrees t: Yes Safety Risks/Education Patient Education: Safety Issues Teaching Recipient: Patient Teaching Methods: Demonstration, Discussion Response to Teaching: Reinforcement Needed Discharge Recommendations Therapy D/C Recommendations: Acute Rehab Time/GCodes Time In: 955 Time Out: 1035 Total Billed Treatment Time: 40 Total Billed Treatment visit EX 15 FA 25 YANNI CABRERA PT Sep 23, 2018 11:25
[2018-09-23 12:25] LABS: BUN/CREATININE RATIO 20; CALCIUM 7.1 MG/DL (8.5-10.1); CARBON DIOXIDE 18 MMOL/L (21-32); CHLORIDE 103 MMOL/L (98-107); CREATININE SERUM 0.93 MG/DL (0.60-1.30); GFR ESTIMATED > 60; GLUCOSE 130 MG/DL (70-105); POTASSIUM 3.8 MMOL/L (3.6-5.0); SODIUM 129 MMOL/L (135-145)
[2018-09-23] MEDS: NS IV 1000 ML 1,000 ML IV SCH ×2 (13:19→21:13)
--- NOTE | 2018-09-23 15:22 | Occupational Therapy Eval ---
OT Evaluation-General/PLF Medical Diagnosis Admission Date Sep 19, 2018 at 08:10 Medical Diagnosis: hyponatremia, confusion, syncope Onset Date: Sep 19, 2018 Therapy Diagnosis Therapy Diagnosis: decr self care, decr funct mob, decr act ryland, weakness, edema Height/Weight Height (Feet): 5 Height (Inches): 10.00 Weight (Pounds): 198 Weight (Ounces): 0.0 Precautions Precautions/Isolations: Seizure, Fall Prevention, Standard Precautions, Pressure Ulcer Safety Interventions: Bed Exit Alarm, Reorient-PRN Referral Physician: Omar Referral Reason: Evaluation/Treatment Medical History Pertinent Medical History: CABG, CAD, HTN, Macular Degenertion, Neuropathy Additional Medical History Sinus issues. Kidney disease. Esophageal erosion. Prostatectomy. Current History Confusion, hallucinations, altered mental status. Recent diagnosis amyloidosis and getting chemo. Reviewed History: Yes Social History Home: Single Level Current Living Status: Spouse ADL-Prior Level of Function Functional [place] Measure 0=Not Assessed/NA 4=Minimal Assistance 1=Total Assistance 5=Supervision or Setup 2=Maximal Assistance 6=Modified [place] 3=Moderate Assistance 7=Complete [place] ADL PLOF Comments Pt reported that he has been able to manage his basic self care needs and meds until April. He also did chores around the home and mowed in the early summer. 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 DME/Equipment: Bedside Commode OT Current Status Subjective Pt seen in room, up in recliner, agreeable to OT. Pain reported 0/10. Appearance Alert, cooperative Mental Status/Objective Attachments: Guan Catheter, IV, Telemetry Current Hand Dominance: Right Upper Extremity ROM Grossly WFL bilat Upper Extremity Strength Grossly functional Tremors noted in R hand with use ADL-Treatment ADL-Current Pt reported that he has been able to feed himself. He transferred min assist from bed to recliner with PT and close monitoring of blood pressure. He hasn't been up to the toilet yet. Functional [place] Measure 0=Not Assessed/NA 4=Minimal Assistance 1=Total Assistance 5=Supervision or Setup 2=Maximal Assistance 6=Modified [place] 3=Moderate Assistance 7=Complete IndependenceIRFPAI Quality Coding Scale 6 Independent with activity with or without an assistive device 5 Patient requires set up or clean up by helper. Patient completes activity by themselves 4 Supervision or touching assist (CGA). [place] provide cues , steadying assist 3 The helper provides less than half the effort to complete the activity 2 The helper provides more than half the effort to complete the activity 1 Dependent. The helper does all the effort to complete an activity 7 Patient refused to complete or attempt activity 9 The patient did not perform the activity before the current illness or injury 88 Not attempted due to Medical conditions or safety concerns Education OT Patient Education: Purpose of tx/functional activities, Rehab process Teaching Recipient: Patient Teaching Methods: Discussion Response to Teaching: Verbalize Understanding OT Assisted Goals Assisted Goals Time Frame: Sep 30, 2018 Eating (FIM): 6 Grooming(FIM): 5 Bathing(FIM): 5 Upper Body Dressing(FIM): 5 Lower Body Dressing(FIM): 5 Toileting(FIM): 5 Toilet/Commode Transfer(FIM): 5 Additional Goals: 1-Demonstrate ADL Tasks, 2-Verbalize Understanding, 3- ImproveStrength/Angelo 1=Demonstrate adherence to instructed precautions during ADL tasks. 2=Patient will verbalize/demonstrate understanding of assistive devices/ modifications for ADL. 3=Patient will improve strength/tolerance for activity to enable patient to perform ADL's. OT Education/Plan Problem List/Assessment Assessment: Decreased Activ Tolerance, Decreased UE Strength, Dependent Transfers, Edema, Impaired Self-Care Skills Pt would benefit from skilled OT to increase his independence in self care Discharge Recommendations Plan/Recommendations: Continue POC Treatment Plan/Plan of Care Treatment,Training & Education: Yes Patient would benefit from OT for education, treatment and training to promote independence in ADL's, mobility, safety and/or upper extremity function for ADL' s. Plan of Care: ADL Retraining, Functional Mobility, UE Funct Exercise/Act, UE Neuromus Re-Ed/Coord, OTHER (energy conservation education) Treatment Duration: Sep 30, 2018 Frequency: 5 times per week Estimated Hrs Per Day: .5 hour per day Agreement: Yes Rehab Potential: Fair Time/GCodes Start Time: 10:34 Stop Time: 10:55 Total Time Billed (hr/min): 21 Billed Treatment Time visit, 21 minutes evaluation moderate intensity CASSY HARGROVE OT Sep 23, 2018 15:22
--- NOTE | 2018-09-23 15:32 | Progress Note-Hospitalist ---
Subjective HPI/CC On Admission Date Seen by Provider: Sep 23, 2018 Time Seen by Provider: 07:15 Pt is a 78yoCM with a PMH amyloidosis who presented to the ER for confusion, syncope, and altered mental status. I was called to bedside shortly after arrival to the floor due to a syncopal episode while on the toilet. He is able to tell me some limited history and his is at bedside to fill in some details. Reportedly he just started chemo for amyloidosis with Dr Markham last week. He has had poor appetite and little intake over the weekend due to this and then began to hallucinate prompting him to seek evaluation. She state shis chemo regimen is cytaxin and velcade and she has already called and spoke with his oncologist at who believe this to be due to his chemo. He as found to be hyponatremic at 117 and admitted for further management. Currently he is oriented x4 and denies any hallucinations at this time. Subjective/Events-last exam Pt reports doing ok today. Sodium improving but still weak. No other complaints or concerns. Focused Exam Lactate Level 09/21/18 06:25: Lactic Acid Level 0.67 Objective Exam Vital Signs Vital Signs Date Time Temp Pulse Resp B/P (MAP) Pulse Ox O2 Delivery O2 Flow Rate FiO2 09/23/18 14:14 92 Room Air 09/23/18 14:00 86 27 101/63 (76) 09/23/18 11:42 98.1 09/22/18 00:32 0.00 Capillary Refill : Less Than 3 SecondsLess Than 3 Seconds General Appearance: No Apparent Distress, Chronically ill Respiratory: No Respiratory Distress, Decreased Breath Sounds Cardiovascular: Regular Rate, Rhythm, No Murmur Gastrointestinal: Normal Bowel Sounds, Non Tender, Soft Extremity: Non Tender, No Calf Tenderness, No Pedal Edema Neurologic/Psychiatric: Alert, Oriented x3, Normal Mood/Affect Results/Procedures Lab Laboratory Tests 09/22/18 15:40 09/22/18 20:25 09/23/18 00:15 09/23/18 04:37 09/23/18 08:08 09/23/18 09:30 09/23/18 11:58 Patient resulted labs reviewed. Imaging: Reviewed Imaging Report Assessment/Plan Assessment and Plan Assess & Plan/Chief Complaint Hyponatremia Diagnosis/Problems Diagnosis/Problems (1) Hyponatremia Status: Acute Assessment & Plan: Na 126 today Trend Mentation improving No hallucinations today (2) Pleural effusion Assessment & Plan: On room air but persistent despite lasix Thoracentesis done by Dr Tolbert today Sent for culture and cytology Possibly repeat on other side tomorrow (3) Delirium Status: Acute Assessment & Plan: Improving (4) Syncope and collapse Status: Resolved Assessment & Plan: Syncopal episode on toilet on 08/19 Monitor on telemetry Orthostatics Positive Continue IVF (5) Amyloidosis Status: Acute Assessment & Plan: Follows with [facility] and started on chemo last week Chemo [facility] here with Dr Markham Oncology consulted, appreciate recs Qualifiers: Amyloidosis type: unspecified amyloidosis Qualified Codes: E85.9 - Amyloidosis, unspecified (6) Hypomagnesemia Status: Acute Assessment & Plan: Replaced (7) Weakness Assessment & Plan: states has been weak for over a year Worsened recently by chemo PT/OT consulted IRU consult- plan for DC to IRU next week for rehab Clinical Quality Measures DVT/VTE Risk/Contraindication: Risk Factor Score Per Nursin RFS Level Per Nursing on Admit: 4+=Very High BRYSON CHUNG MD Sep 23, 2018 3:32 pm
[2018-09-23] MEDS: TAMSULOSIN 0.4 MG (FLOMAX) CAP PO SCH (17:24)
[2018-09-23] MEDS: ROSUVASTATIN 20 MG (CRESTOR) TABLET PO SCH (20:31)
[2018-09-23] MEDS: MELATONIN 3 MG TABLET PO PRN (20:31)
[2018-09-24] VITALS (24 sets, daily range): BP systolic 110–151; BP diastolic 60–84
[2018-09-24] MEDS: RT-ALBUTEROL/IPRATROPIUM 3 ML (DUONEB) VIAL INH SCH ×6 (02:15→21:35)
[2018-09-24] MEDS: NS IV 1000 ML 1,000 ML IV SCH (04:06)
[2018-09-24 05:02] LABS: BASOPHILS % (AUTO) 0 % (0-10); EOSINOPHILS # (AUTO) 0.1 10^3/uL (0.0-0.3); EOSINOPHILS % (AUTO) 1 % (0-10); HEMATOCRIT 28 % (40-54); HEMOGLOBIN 9.8 G/DL (13.3-17.7); LYMPHOCYTES # (AUTO) 0.5 X 10^3 (1.0-4.0); LYMPHOCYTES % (AUTO) 5 % (12-44); MEAN CORPUSCULAR HEMOGLOBIN 32 PG (25-34); MEAN CORPUSCULAR HGB CONC 35 G/DL (32-36); MEAN CORPUSCULAR VOLUME 93 FL (80-99); MEAN PLATELET VOLUME 11.5 FL (7.4-10.4); MONOCYTES # (AUTO) 0.5 X 10^3 (0.0-1.0); MONOCYTES % (AUTO) 5 % (0-12); NEUTROPHILS # (AUTO) 7.9 X 10^3 (1.8-7.8); NEUTROPHILS % (AUTO) 89 % (42-75); PLATELET COUNT 138 10^3/uL (130-400); RED BLOOD COUNT 3.04 10^6/uL (4.35-5.85); RED CELL DISTRIBUTION WIDTH 13.7 % (10.0-14.5); WHITE BLOOD COUNT 8.9 10^3/uL (4.3-11.0)
[2018-09-24 05:18] LABS: BUN/CREATININE RATIO 22; CALCIUM 7.3 MG/DL (8.5-10.1); CARBON DIOXIDE 19 MMOL/L (21-32); CHLORIDE 104 MMOL/L (98-107); CREATININE SERUM 0.89 MG/DL (0.60-1.30); GFR ESTIMATED > 60; GLUCOSE 101 MG/DL (70-105); MAGNESIUM 1.4 MG/DL (1.8-2.4); PHOSPHORUS 2.7 MG/DL (2.3-4.7); POTASSIUM 3.8 MMOL/L (3.6-5.0); SODIUM 128 MMOL/L (135-145)
[2018-09-24] MEDS: MAGNESIUM 1 GM/100 ML IVPB 100 ML IV SCH ×4 (06:11→12:16)
[2018-09-24] MEDS: POTASSIUM CL 10MEQ/50ML IVPB 50 ML IV SCH (06:11)
[2018-09-24] MEDS: KCL 20 MEQ TAB (K-DUR) PO SCH (06:11)
[2018-09-24] MEDS: PIPERACILLIN SODIUM/TAZOBACTAM 4.5 GM in NS (IVPB) 100 ML IV SCH ×3 (06:16→22:18)
--- NOTE | 2018-09-24 07:24 | Progress Note-Hospitalist ---
Subjective HPI/CC On Admission Date Seen by Provider: Sep 24, 2018 Time Seen by Provider: 07:18 Pt is a 78yoCM with a PMH amyloidosis who presented to the ER for confusion, syncope, and altered mental status. I was called to bedside shortly after arrival to the floor due to a syncopal episode while on the toilet. He is able to tell me some limited history and his is at bedside to fill in some details. Reportedly he just started chemo for amyloidosis with Dr Markham last week. He has had poor appetite and little intake over the weekend due to this and then began to hallucinate prompting him to seek evaluation. She state shis chemo regimen is cytaxin and velcade and she has already called and spoke with his oncologist at who believe this to be due to his chemo. He as found to be hyponatremic at 117 and admitted for further management. Currently he is oriented x4 and denies any hallucinations at this time. Subjective/Events-last exam Pt express concerns about scrotal edema and pain. Complains of all edema all over as well. Objective Exam Vital Signs Vital Signs Date Time Temp Pulse Resp B/P (MAP) Pulse Ox O2 Delivery O2 Flow Rate FiO2 09/24/18 07:14 98 Room Air 09/24/18 06:00 66 16 135/78 (97) 09/24/18 00:56 97.5 09/22/18 00:32 0.00 Capillary Refill : Less Than 3 SecondsLess Than 3 Seconds General Appearance: No Apparent Distress, WD/WN Respiratory: No Accessory Muscle Use, No Respiratory Distress, Decreased Breath Sounds; No Wheezing Cardiovascular: Regular Rate, Rhythm, No Murmur Gastrointestinal: Normal Bowel Sounds, Non Tender, Soft Genital/Rectal: Other (dailey in place, significant scotal edema) Extremity: Swelling (2+ edema) Neurologic/Psychiatric: Alert, Oriented x3 Results/Procedures Lab Laboratory Tests 09/23/18 08:08 09/23/18 09:30 09/23/18 11:58 09/24/18 04:50 Patient resulted labs reviewed. Imaging: Reviewed Imaging Report Assessment/Plan Assessment and Plan Assess & Plan/Chief Complaint Hyponatremia Diagnosis/Problems Diagnosis/Problems (1) Hyponatremia Status: Acute Assessment & Plan: Na 128 today without hypertonic saline Continue to trend Mentation improving No hallucinations today (2) Pleural effusion Assessment & Plan: On room air but persistent despite lasix Thoracentesis done on 09/24- Dr Tolbert to assess again today with [facility] and may need repeat Sent for culture and cytology Continue Abx (3) Delirium Status: Acute Assessment & Plan: Improving (4) Syncope and collapse Status: Resolved Assessment & Plan: Syncopal episode on toilet on 08/19 Monitor on telemetry Orthostatics Positive Continue IVF (5) Amyloidosis Status: Acute Assessment & Plan: Follows with [facility] and started on chemo over 1 week ago now Chemo through cancer center here with Dr Markham Oncology consulted, appreciate recs Qualifiers: Amyloidosis type: unspecified amyloidosis Qualified Codes: E85.9 - Amyloidosis, unspecified (6) Hypomagnesemia Status: Acute Assessment & Plan: Replaced (7) Scrotal edema Assessment & Plan: Urology consulted, appreciate recs Scrotal support ordered Likely due to fluids and malnutrition (8) Weakness Assessment & Plan: states has been weak for over a year Worsened recently by chemo PT/OT consulted IRU consult- plan for DC to IRU next week for rehab (9) Moderate protein-energy malnutrition Assessment & Plan: Albumin 1.9 with temporal wasting and overall weakness Significant edema Dietary consulted appreciate recs Continue Ensure Enlive Clinical Quality Measures DVT/VTE Risk/Contraindication: Risk Factor Score Per Nursin RFS Level Per Nursing on Admit: 4+=Very High BRYSON CHUNG MD Sep 24, 2018 7:23 am
--- NOTE | 2018-09-24 07:51 | Pulmonary Progress Note ---
Subjective Time Seen by a Provider: 07:50 Subjective/Events-last exam Pt feels weaker today. Complains of scrotal edema. Sepsis Event Evaluation Height, Weight, BMI Height: 5'10.00" Weight: 200lbs. 0.0oz. 90.145326dn; 25.3 BMI Method:Stated Exam Exam Vital Signs Date Time Temp Pulse Resp B/P (MAP) Pulse Ox O2 Delivery O2 Flow Rate FiO2 09/24/18 07:14 98 Room Air 09/24/18 06:00 66 16 135/78 (97) 100 Room Air 09/24/18 05:00 67 13 132/74 (93) 100 Room Air 09/24/18 04:00 73 13 134/71 (92) 100 Room Air 09/24/18 04:00 97 Room Air 09/24/18 03:00 76 19 125/76 (92) 100 Room Air 09/24/18 02:00 76 13 124/77 (93) 97 Room Air 09/24/18 01:06 80 09/24/18 01:00 79 14 130/77 (94) 100 Room Air 09/24/18 00:56 97.5 09/24/18 00:00 97 Room Air 09/24/18 00:00 75 18 128/71 (90) 100 Room Air 09/23/18 23:00 83 19 124/72 (89) 100 Room Air 09/23/18 22:26 100 Room Air 09/23/18 22:00 81 13 132/67 (88) 98 Room Air 09/23/18 21:00 86 16 117/66 (83) 99 Room Air 09/23/18 20:31 98.3 09/23/18 20:00 85 19 131/66 (87) 100 Room Air 09/23/18 20:00 96 Room Air 09/23/18 19:07 89 09/23/18 19:00 89 22 121/68 (85) 100 Room Air 09/23/18 18:30 100 Room Air 09/23/18 18:00 86 19 119/73 (88) 100 Room Air 09/23/18 17:26 98.1 09/23/18 17:00 87 20 120/70 (87) 98 Room Air 09/23/18 16:00 92 23 122/79 (93) 100 Room Air 11/9/18 15:33 95 Room Air 09/23/18 15:00 90 21 124/68 (86) 100 Room Air 09/23/18 14:14 92 Room Air 09/23/18 14:00 86 27 101/63 (76) 98 Room Air 09/23/18 13:00 84 15 114/69 (84) 97 Room Air 09/23/18 13:00 83 09/23/18 11:42 98.1 82 16 109/61 (77) 98 Room Air 09/23/18 11:17 99 Room Air 09/23/18 11:00 86 14 88/54 (65) 100 Room Air 09/23/18 10:52 95 Room Air 09/23/18 10:43 82/40 (54) 09/23/18 10:00 83 21 67/56 (60) 100 Room Air 09/23/18 09:00 85 23 115/102 (106) 100 Room Air 09/23/18 08:15 97.8 09/23/18 08:00 96 Room Air 09/23/18 08:00 81 22 87/76 (80) 100 Room Air I & O 09/24/18 07:00 Intake Total 3260 ml Output Total 2220 ml Balance 1040 ml Height & Weight Height: 5'10.00" Weight: 200lbs. 0.0oz. 90.554709ox; 25.3 BMI Method:Stated General Appearance: WD/WN, Anxious, Chronically ill, Moderate Distress HEENT: Normal ENT Inspection, Pharynx Normal Neck: Normal Inspection Respiratory: No Respiratory Distress, Decreased Breath Sounds Cardiovascular: Regular Rate, Rhythm, No Murmur Capillary Refill: Less Than 3 Seconds Extremity: Normal Inspection, Non Tender, No Pedal Edema Neurologic/Psychiatric: Alert, Oriented x3 Skin: Normal Color, Warm/Dry Lymphatic: No Adenopathy Results Lab Laboratory Tests 09/22/18 08:57 09/22/18 12:10 09/22/18 15:40 09/22/18 20:25 09/23/18 00:15 09/23/18 04:37 09/23/18 08:08 09/23/18 09:30 09/23/18 11:58 09/24/18 04:50 Assessment/Plan Assessment/Plan Severe acute on chronic hyponatremia -09/13/18 Na was 129. -Today Na is 126 yesterday morning repeat was 124 -Hep lock IVF -Give Lasix 20mg IV x 1 -Sodium is up to 126. repeat Na yesterday morning proved initial sodium was false lab Plural effusions s/p pleural effusion Debility/weakness - pt is complaining and is worried about weakness. -Pt/ot -up to chair TID Diastolic CHF - grade 2 pneumonia -Ray culture - vanco and zosyn Orthostatic hypotension with Hx of adrenal insuff -Pt is on home increased to cortisone 30mg BID Dysuria s/p dailey cath Delirium Syncope/fall Amyloidosis s/p chemo PT felt much better after thoracentesis yesterday and was requesting thoracentesis on the left. I set pt up on the side of the bed and did US of chest. Pt does have a small amount of left pleural fluid however especially since pt is not real SOB I am going to hold off on thoracentesis. I discussed patient in depth with RN and . Time spent with patient is 45 min. CLAY MATIAS DO Sep 24, 2018 07:51
[2018-09-24] MEDS ORDERED: FUROSEMIDE 40 MG/4 ML INJ (LASIX) IVP NR (08:03)
--- NOTE | 2018-09-24 08:17 | Diagnostic Imaging Report ---
INDICATION: Pleural effusion, followup. TECHNIQUE: Single view chest 3:53 AM. CORRELATION STUDY: 09/23/2018 FINDINGS: Patient is poststernotomy. Heart size and mediastinum relatively stable. Vasculature is increased from prior study. Additional bilateral pleural effusions appear slightly more prominent along with consolidation, atelectasis and/or infiltrate at the lung bases. IMPRESSION: 1. No radiographic findings to suggest acute abnormality of the chest. Dictated by: Dictated on workstation # [id number]
[2018-09-24] MEDS: ACYCLOVIR 400 MG TABLET (ZOVIRAX) PO SCH ×2 (09:35→20:40)
[2018-09-24] MEDS: HYDROCORTISONE 20 MG (CORTEF) TAB PO SCH ×2 (09:35→20:40)
[2018-09-24] MEDS: VANCOMYCIN 1 GM/NS 250 ML IVPB IV SCH ×4 (09:35→20:39)
[2018-09-24] MEDS: DOXYCYCLINE 100 MG (VIBRAMYCIN) TABLET PO SCH ×2 (09:45→20:40)
--- NOTE | 2018-09-24 10:50 | Physical Therapy Progress Note ---
Therapy Progress Note Patient refused therapy secondary to severe scrotal swelling. Will continue therapy on Wednesday as able. LINETTE WILD PT Sep 24, 2018 10:50
[2018-09-24] MEDS: HYDROcodone/APAP 5 MG/325 MG (LORTAB) TAB PO PRN ×2 (11:32→16:18)
[2018-09-24] MEDS: TAMSULOSIN 0.4 MG (FLOMAX) CAP PO SCH (18:05)
[2018-09-24] MEDS: ROSUVASTATIN 20 MG (CRESTOR) TABLET PO SCH (20:41)
[2018-09-24] MEDS: MELATONIN 3 MG TABLET PO PRN (20:41)
[2018-09-25] VITALS (13 sets, daily range): BP systolic 101–153; BP diastolic 58–97
[2018-09-25 03:37] LABS: BASOPHILS % (AUTO) 0 % (0-10); EOSINOPHILS # (AUTO) 0.2 10^3/uL (0.0-0.3); EOSINOPHILS % (AUTO) 2 % (0-10); HEMATOCRIT 30 % (40-54); HEMOGLOBIN 10.3 G/DL (13.3-17.7); LYMPHOCYTES # (AUTO) 0.5 X 10^3 (1.0-4.0); LYMPHOCYTES % (AUTO) 5 % (12-44); MEAN CORPUSCULAR HEMOGLOBIN 32 PG (25-34); MEAN CORPUSCULAR HGB CONC 34 G/DL (32-36); MEAN CORPUSCULAR VOLUME 93 FL (80-99); MEAN PLATELET VOLUME 11.3 FL (7.4-10.4); MONOCYTES # (AUTO) 0.5 X 10^3 (0.0-1.0); MONOCYTES % (AUTO) 5 % (0-12); NEUTROPHILS # (AUTO) 8.7 X 10^3 (1.8-7.8); NEUTROPHILS % (AUTO) 87 % (42-75); PLATELET COUNT 150 10^3/uL (130-400); RED BLOOD COUNT 3.22 10^6/uL (4.35-5.85); RED CELL DISTRIBUTION WIDTH 13.6 % (10.0-14.5)
[2018-09-25] MEDS: RT-ALBUTEROL/IPRATROPIUM 3 ML (DUONEB) VIAL INH SCH ×6 (03:44→22:29)
[2018-09-25 03:56] LABS: BUN/CREATININE RATIO 21; CALCIUM 7.5 MG/DL (8.5-10.1); CARBON DIOXIDE 18 MMOL/L (21-32); CHLORIDE 102 MMOL/L (98-107); CREATININE SERUM 0.99 MG/DL (0.60-1.30); GFR ESTIMATED > 60; GLUCOSE 126 MG/DL (70-105); MAGNESIUM 1.9 MG/DL (1.8-2.4); POTASSIUM 3.9 MMOL/L (3.6-5.0); SODIUM 128 MMOL/L (135-145)
[2018-09-25 04:34] LABS: EOSINOPHILS % (MANUAL) 1 %; LYMPHOCYTES % (MANUAL) 4 %; MONOCYTES % (MANUAL) 5 %; NEUTROPHILS % (MANUAL) 90 %
[2018-09-25] MEDS: KCL 20 MEQ TAB (K-DUR) PO SCH (04:47)
[2018-09-25] MEDS: MAGNESIUM 1 GM/100 ML IVPB 100 ML IV SCH (04:47)
[2018-09-25] MEDS: POTASSIUM CL 10MEQ/50ML IVPB 50 ML IV SCH (04:47)
--- NOTE | 2018-09-25 05:27 | Progress Note-Hospitalist ---
Subjective HPI/CC On Admission Date Seen by Provider: Sep 25, 2018 Time Seen by Provider: 05:25 Pt is a 78yoCM with a PMH amyloidosis who presented to the ER for confusion, syncope, and altered mental status. I was called to bedside shortly after arrival to the floor due to a syncopal episode while on the toilet. He is able to tell me some limited history and his is at bedside to fill in some details. Reportedly he just started chemo for amyloidosis with Dr Markham last week. He has had poor appetite and little intake over the weekend due to this and then began to hallucinate prompting him to seek evaluation. She state shis chemo regimen is cytaxin and velcade and she has already called and spoke with his oncologist at who believe this to be due to his chemo. He as found to be hyponatremic at 117 and admitted for further management. Currently he is oriented x4 and denies any hallucinations at this time. Subjective/Events-last exam Pt reports doing well. Pain improved and swelling improved. Remains on room air. Objective Exam Vital Signs Vital Signs Date Time Temp Pulse Resp B/P (MAP) Pulse Ox O2 Delivery O2 Flow Rate FiO2 09/25/18 04:00 100 Room Air 0.00 09/25/18 04:00 68 15 152/96 (114) 09/25/18 00:00 97.8 Capillary Refill : Less Than 3 SecondsLess Than 3 Seconds General Appearance: No Apparent Distress, WD/WN Respiratory: Lungs Clear, No Respiratory Distress Cardiovascular: Regular Rate, Rhythm, No Murmur Extremity: Swelling (1+ bilaterally, improved) Neurologic/Psychiatric: Alert, Oriented x3 Results/Procedures Lab Laboratory Tests 09/25/18 03:30 Patient resulted labs reviewed. Imaging: Reviewed Imaging Report Assessment/Plan Assessment and Plan Assess & Plan/Chief Complaint Hyponatremia Critical Care Critical Care: Critically Ill Patient Diagnosis/Problems Diagnosis/Problems (1) Hyponatremia Status: Acute Assessment & Plan: Stable at Na 128 today without fluids Continue to trend daily (2) Pleural effusion Assessment & Plan: On room air but persistent despite lasix Thoracentesis done on 09/24 Sent for culture and cytology Continue Zosyn DC Vanc Repeat Lasix (3) Delirium Status: Acute Assessment & Plan: Improving (4) Amyloidosis Status: Acute Assessment & Plan: Follows with [facility] and started on chemo over 1 week ago now Chemo through cancer center here with Dr Markham Oncology consulted, appreciate recs Qualifiers: Amyloidosis type: unspecified amyloidosis Qualified Codes: E85.9 - Amyloidosis, unspecified (5) Scrotal edema Assessment & Plan: Urology consulted, appreciate recs Scrotal support ordered Likely due to fluids and malnutrition (6) Syncope and collapse Status: Resolved Assessment & Plan: Syncopal episode on toilet on 08/19 Monitor on telemetry Orthostatics Positive Continue IVF (7) Hypomagnesemia Status: Acute Assessment & Plan: Replaced (8) Weakness Assessment & Plan: states has been weak for over a year Worsened recently by chemo PT/OT consulted IRU consult- plan for DC to IRU next week for rehab (9) Moderate protein-energy malnutrition Assessment & Plan: Albumin 1.9 with temporal wasting and overall weakness Significant edema Dietary consulted appreciate recs Continue Ensure Enlive Clinical Quality Measures DVT/VTE Risk/Contraindication: Risk Factor Score Per Nursin RFS Level Per Nursing on Admit: 4+=Very High BRYSON CHUNG MD Sep 25, 2018 05:27
[2018-09-25] MEDS ORDERED: FUROSEMIDE 40 MG/4 ML INJ (LASIX) IVP ONE (05:30)
[2018-09-25] MEDS: PIPERACILLIN SODIUM/TAZOBACTAM 4.5 GM in NS (IVPB) 100 ML IV SCH ×3 (05:42→22:19)
--- NOTE | 2018-09-25 06:01 | Diagnostic Imaging Report ---
INDICATION: Pleural effusion followup. COMPARISON: 09/24/2018. FINDINGS: Small bilateral pleural effusions are unchanged. Bibasilar pulmonary opacities are similar. No pneumothorax. Stable left PICC. Stable cardiomediastinal silhouette status post sternotomy. IMPRESSION: No change in small bilateral pleural effusions and associated basilar pulmonary opacities. Dictated by: Dictated on workstation # [id number]
--- NOTE | 2018-09-25 06:29 | Pulmonary Progress Note ---
Subjective Time Seen by a Provider: 08:00 Subjective/Events-last exam Pt appears improved. Sepsis Event Evaluation Height, Weight, BMI Height: 5'10.00" Weight: 200lbs. 0.0oz. 90.243996mf; 25.3 BMI Method:Stated Exam Exam Vital Signs Date Time Temp Pulse Resp B/P (MAP) Pulse Ox O2 Delivery O2 Flow Rate FiO2 09/25/18 06:00 65 11 131/86 (101) 100 Room Air 09/25/18 05:00 69 9 153/89 (110) 100 Room Air 09/25/18 04:00 100 Room Air 0.00 09/25/18 04:00 68 15 152/96 (114) 99 Room Air 09/25/18 03:00 70 15 152/97 (115) 99 Room Air 09/25/18 02:00 75 13 142/88 (106) 99 Room Air 09/25/18 01:00 70 09/25/18 01:00 70 19 124/69 (87) 96 Room Air 09/25/18 00:00 97.8 09/25/18 00:00 71 12 142/87 (105) 95 Room Air 09/25/18 00:00 100 Room Air 0.00 09/24/18 23:00 74 12 145/80 (101) 92 Room Air 09/24/18 22:00 77 13 147/74 (98) 91 Room Air 09/24/18 21:35 96 Room Air 2.00 09/24/18 21:00 66 30 151/84 (106) 100 Room Air 09/24/18 20:00 97.3 09/24/18 20:00 100 Room Air 0.00 09/24/18 20:00 65 15 123/77 (92) 100 Room Air 09/24/18 19:00 66 09/24/18 19:00 66 11 110/66 (81) 100 Room Air 09/24/18 18:08 99.9 09/24/18 18:00 69 12 126/76 (93) 100 Room Air 09/24/18 17:00 71 14 119/67 (84) 100 Room Air 09/24/18 16:00 73 13 117/72 (87) 100 Room Air 09/24/18 16:00 100 Room Air 0.00 09/24/18 15:00 77 15 122/68 (86) 100 Room Air 09/24/18 14:00 78 12 120/63 (82) 100 Room Air 09/24/18 13:00 76 20 110/60 (77) 100 Room Air 09/24/18 13:00 80 09/24/18 12:50 100 Nasal Cannula 2.00 09/24/18 12:00 65 26 134/82 (99) 100 Room Air 09/24/18 12:00 98.6 09/24/18 12:00 100 Room Air 0.00 09/24/18 11:00 69 14 130/79 (96) 100 Room Air 09/24/18 10:00 68 16 135/77 (96) 100 Room Air 09/24/18 10:00 98.6 09/24/18 09:00 70 17 116/71 (86) 100 Room Air 09/24/18 08:00 69 24 133/74 (93) 100 Room Air 09/24/18 08:00 100 Room Air 0.00 09/24/18 07:14 98 Room Air 09/24/18 07:00 73 21 144/82 (102) 100 Room Air 09/24/18 07:00 73 I & O 09/25/18 07:00 Intake Total 3700 ml Output Total 1650 ml Balance 2050 ml Height & Weight Height: 5'10.00" Weight: 200lbs. 0.0oz. 90.099588rs; 25.3 BMI Method:Stated General Appearance: No Apparent Distress, WD/WN HEENT: Normal ENT Inspection, Pharynx Normal Neck: Normal Inspection Respiratory: Lungs Clear, No Respiratory Distress Cardiovascular: Regular Rate, Rhythm, No Murmur Capillary Refill: Less Than 3 Seconds Extremity: Swelling (1+ bilaterally, improved) Neurologic/Psychiatric: Alert, Oriented x3 Skin: Normal Color, Warm/Dry Lymphatic: No Adenopathy Results Lab Laboratory Tests 09/23/18 08:08 09/23/18 09:30 09/23/18 11:58 09/24/18 04:50 09/25/18 03:30 Assessment/Plan Assessment/Plan Severe acute on chronic hyponatremia - continue to monitor Plural effusions s/p pleural effusion Debility/weakness - pt is complaining and is worried about weakness. -Pt/ot -up to chair TID Diastolic CHF - grade 2 pneumonia -Ray culture - vanco and zosyn Orthostatic hypotension with Hx of adrenal insuff -Pt is on home increased to cortisone 30mg BID Dysuria s/p dailey cath Delirium Syncope/fall Amyloidosis s/p chemo CLAY MATIAS DO Sep 25, 2018 06:29
[2018-09-25] MEDS: ACYCLOVIR 400 MG TABLET (ZOVIRAX) PO SCH ×2 (08:54→20:24)
[2018-09-25] MEDS: DOXYCYCLINE 100 MG (VIBRAMYCIN) TABLET PO SCH ×2 (08:54→20:24)
[2018-09-25] MEDS: HYDROCORTISONE 20 MG (CORTEF) TAB PO SCH ×2 (08:54→20:23)
[2018-09-25] MEDS: TAMSULOSIN 0.4 MG (FLOMAX) CAP PO SCH (17:25)
[2018-09-25] MEDS: POLYETHYLENE GLYCOL 17 GM (MIRALAX) PACK PO PRN (17:26)
--- NOTE | 2018-09-25 17:53 | Progress Note-Urology ---
Progress Note-Urology Progress Notes/Assess & Plan Progress/Assessment & Plan TOV OIN AM Final Diagnosis URINE RETENTION SALINAS CABELLO MD Sep 25, 2018 5:53 pm
[2018-09-25] MEDS: ROSUVASTATIN 20 MG (CRESTOR) TABLET PO SCH (20:23)
[2018-09-25] MEDS: MELATONIN 3 MG TABLET PO PRN (20:24)
[2018-09-26] VITALS: BP 111/60
[2018-09-26] MEDS: RT-ALBUTEROL/IPRATROPIUM 3 ML (DUONEB) VIAL INH SCH ×6 (02:48→21:38)
[2018-09-26 04:00] VITALS: BP 113/64
[2018-09-26] MEDS: PIPERACILLIN SODIUM/TAZOBACTAM 4.5 GM in NS (IVPB) 100 ML IV SCH ×3 (05:26→22:15)
--- NOTE | 2018-09-26 06:29 | Progress Note-Urology ---
Progress Note-Urology Progress Notes/Assess & Plan Progress/Assessment & Plan TOV TODAY Final Diagnosis URINE RETENTION SALINAS CABELLO MD Sep 26, 2018 6:29 am
[2018-09-26 07:08] LABS: BASOPHILS % (AUTO) 0 % (0-10); EOSINOPHILS # (AUTO) 0.2 10^3/uL (0.0-0.3); EOSINOPHILS % (AUTO) 2 % (0-10); HEMATOCRIT 30 % (40-54); HEMOGLOBIN 10.3 G/DL (13.3-17.7); LYMPHOCYTES # (AUTO) 0.6 X 10^3 (1.0-4.0); LYMPHOCYTES % (AUTO) 6 % (12-44); MEAN CORPUSCULAR HEMOGLOBIN 32 PG (25-34); MEAN CORPUSCULAR HGB CONC 34 G/DL (32-36); MEAN CORPUSCULAR VOLUME 93 FL (80-99); MEAN PLATELET VOLUME 11.1 FL (7.4-10.4); MONOCYTES # (AUTO) 0.5 X 10^3 (0.0-1.0); MONOCYTES % (AUTO) 5 % (0-12); NEUTROPHILS # (AUTO) 8.6 X 10^3 (1.8-7.8); NEUTROPHILS % (AUTO) 86 % (42-75); PLATELET COUNT 155 10^3/uL (130-400); RED BLOOD COUNT 3.26 10^6/uL (4.35-5.85); RED CELL DISTRIBUTION WIDTH 13.9 % (10.0-14.5)
[2018-09-26 07:22] LABS: BUN/CREATININE RATIO 21; CALCIUM 7.7 MG/DL (8.5-10.1); CARBON DIOXIDE 22 MMOL/L (21-32); CHLORIDE 101 MMOL/L (98-107); CREATININE SERUM 1.11 MG/DL (0.60-1.30); GFR ESTIMATED > 60; GLUCOSE 111 MG/DL (70-105); POTASSIUM 3.9 MMOL/L (3.6-5.0); SODIUM 129 MMOL/L (135-145)
[2018-09-26 08:00] VITALS: BP 116/73
--- NOTE | 2018-09-26 08:04 | Pulmonary Progress Note ---
Subjective Time Seen by a Provider: 06:57 Subjective/Events-last exam Pt feels improved. NO complications noted. Sepsis Event Evaluation Height, Weight, BMI Height: 5'10.00" Weight: 209lbs. 1.0oz. 94.744003de; 25.3 BMI Method:Stated Exam Exam Vital Signs Date Time Temp Pulse Resp B/P (MAP) Pulse Ox O2 Delivery O2 Flow Rate FiO2 09/26/18 07:22 91 Room Air 09/26/18 04:00 98.6 80 20 113/64 (80) 95 Room Air 09/26/18 02:48 94 Room Air 09/26/18 01:00 78 09/26/18 00:00 97.3 82 20 111/60 (77) 93 Room Air 09/25/18 22:30 92 Room Air 09/25/18 21:00 Room Air 09/25/18 19:38 78 09/25/18 19:20 97.7 78 20 101/58 (72) 92 Room Air 09/25/18 19:14 93 Room Air 09/25/18 15:30 98.0 79 18 123/70 (87) 92 Room Air 09/25/18 15:09 94 Room Air 09/25/18 13:00 75 09/25/18 12:00 97.7 77 16 118/65 (82) 95 Room Air 09/25/18 10:42 94 Room Air 09/25/18 09:20 Room Air 09/25/18 09:05 98.6 70 16 116/76 (89) 94 Room Air I & O 09/26/18 07:00 Intake Total 2017 ml Output Total 1035 ml Balance 982 ml Height & Weight Height: 5'10.00" Weight: 209lbs. 1.0oz. 94.806132ki; 25.3 BMI Method:Stated General Appearance: No Apparent Distress, WD/WN HEENT: Normal ENT Inspection, Pharynx Normal Neck: Normal Inspection Respiratory: Lungs Clear, No Respiratory Distress Cardiovascular: Regular Rate, Rhythm, No Murmur Capillary Refill: Less Than 3 Seconds Extremity: Swelling (1+ bilaterally, improved) Neurologic/Psychiatric: Alert, Oriented x3 Skin: Normal Color, Warm/Dry Lymphatic: No Adenopathy Results Lab Laboratory Tests 09/25/18 03:30 09/26/18 06:55 Assessment/Plan Assessment/Plan Severe acute on chronic hyponatremia - continue to monitor Plural effusions s/p pleural effusion Debility/weakness - pt is complaining and is worried about weakness. -Pt/ot -up to chair TID Diastolic CHF - grade 2 pneumonia -Ray culture - vanco and zosyn Orthostatic hypotension with Hx of adrenal insuff - cortisone 30mg BID Dysuria s/p dailey cath Delirium Syncope/fall Amyloidosis s/p chemo CLAY MATIAS DO Sep 26, 2018 08:04
[2018-09-26] MEDS: DOXYCYCLINE 100 MG (VIBRAMYCIN) TABLET PO SCH ×2 (08:32→20:30)
[2018-09-26] MEDS: HYDROCORTISONE 20 MG (CORTEF) TAB PO SCH ×2 (08:33→20:30)
[2018-09-26] MEDS: ACYCLOVIR 400 MG TABLET (ZOVIRAX) PO SCH ×2 (08:33→20:30)
--- NOTE | 2018-09-26 11:11 | Occupational Ther Daily Note ---
OT Current Status-Daily Note Subjective Pt seen in room, up in recliner, agreeable to OT. Reported fatigued from PT Appearance Alert, cooperative Mental Status/Objective Functional [place] Measure 0=Not Assessed/NA 4=Minimal Assistance 1=Total Assistance 5=Supervision or Setup 2=Maximal Assistance 6=Modified [place] 3=Moderate Assistance 7=Complete [place] Other Treatment Pt educ on ways to help decrease edema in UEs, including exercise. Pt completed 10 reps bilat Ue ex with yellow theraband (gentle resistance), after demonstration and discussion. 4 different ex done. Pt became SOB after three exercises and took a brief recovery break before completing exercises. Pt educ on pacing for energy conservation. Pt left up in recliner, present, all needs met. Education OT Patient Education: Exercise program, Purpose of tx/functional activities Teaching Recipient: Patient, Family Teaching Methods: Demonstration, Discussion Response to Teaching: Verbalize Understanding, Return Demonstration, Reinforcement Needed OT Short Term Goals Short Term Goals 1=Demonstrate adherence to instructed precautions during ADL tasks. 2=Patient will verbalize/demonstrate understanding of assistive devices/ modifications for ADL. 3=Patient will improve strength/tolerance for activity to enable patient to perform ADL's. OT Alf Goals Social Services Aide Goals Time Frame: Sep 30, 2018 Eating (FIM): 6 Grooming(FIM): 5 Bathing(FIM): 5 Upper Body Dressing(FIM): 5 Lower Body Dressing(FIM): 5 Toileting(FIM): 5 Toilet/Commode Transfer(FIM): 5 Additional Goals: 1-Demonstrate ADL Tasks, 2-Verbalize Understanding, 3- ImproveStrength/Angelo 1=Demonstrate adherence to instructed precautions during ADL tasks. 2=Patient will verbalize/demonstrate understanding of assistive devices/ modifications for ADL. 3=Patient will improve strength/tolerance for activity to enable patient to perform ADL's. OT Education/Plan Problem List/Assessment Pt would benefit from skilled OT to increase his independence in self care Discharge Recommendations Plan/Recommendations: Continue POC Treatment Plan/Plan of Care Patient would benefit from OT for education, treatment and training to promote independence in ADL's, mobility, safety and/or upper extremity function for ADL' s. Plan of Care: ADL Retraining, Functional Mobility, UE Funct Exercise/Act, UE Neuromus Re-Ed/Coord, OTHER (energy conservation education) Treatment Duration: Sep 30, 2018 Frequency: 5 times per week Estimated Hrs Per Day: .5 hour per day Agreement: Yes Rehab Potential: Fair Time/GCodes Start Time: 10:54 Stop Time: 11:04 Total Time Billed (hr/min): 10 Billed Treatment Time visit, 10 minutes exercise CASSY HARGROVE OT Sep 26, 2018 11:11
--- NOTE | 2018-09-26 11:21 | Physical Therapy Daily Note ---
PT Daily Note-Current Subjective Pt awake in bed visiting with his when PT arrived. Pt agreed to get up with PT and move to chair at bedside. Pain Numeric Pain Scale: 0-No Pain Location: No Pain Reported Mental Status Patient Orientation: Normal For Age Transfers Functional [place] Measure 0=Not Assessed/NA 4=Minimal Assistance 1=Total Assistance 5=Supervision or Setup 2=Maximal Assistance 6=Modified [place] 3=Moderate Assistance 7=Complete IndependenceIRFPAI Quality Coding Scale 6 Independent with activity with or without an assistive device 5 Patient requires set up or clean up by helper. Patient completes activity by themselves 4 Supervision or touching assist (CGA). [place] provide cues , steadying assist 3 The helper provides less than half the effort to complete the activity 2 The helper provides more than half the effort to complete the activity 1 Dependent. The helper does all the effort to complete an activity 7 Patient refused to complete or attempt activity 9 The patient did not perform the activity before the current illness or injury 88 Not attempted due to Medical conditions or safety concerns Transfers (B, C, W/C) (FIM): 2 Scootin Rollin Supine to/from Sit: 2 Sit to/from Stand: 4 Weight Bearing Right Lower Extremity: Right Full Weight Bearing Left Lower Extremity: Left Full Weight Bearing Gait Training Gait (FIM): 1 Distance (FIM): 1=up to 49 ft Distance: 15' Gait Level of Assist: 2 Gait Persons Needed: 2 Gait Assistive Device: FWW Pt can stand and walk on his own but two assistants are required if BP drops Assessment Pts BP was monitored throughout transfers when pt was transferring from supine to bedside to standing. Pt was monitored once again when he returned to sitting. PT required min A to sit upright and then required two assistants when standing and walking to chair. Pt reported lightheaded symptoms throughout transfers. Pt was left with OT in chair when PT left room. Supine 115/70 Sitting edge of bed 83/51 Standing - unable to get BP reading Sitting in recliner- 69/44 Sitting in recliner - 138/73 PT Short Term Goals Short Term Goals Time Frame: Sep 30, 2018 Gait (FIM): 2 Distance (FIM): 7=685-39 ft Gait Distance Comment: 100' Gait Level of Assist: 4 Gait Assistive Device: FWW PT Instructor [employer] Goals Instructor [employer] Goals PT Halfway Goals Time Frame: Oct 08, 2018 Transfers (B,C,W/C) (FIM): 6 Gait (FIM): 6 Gait distance (FIM): 3=150 ft Distance: 200' Gait Level of Assist: 6 Gait Assistive Device: FWW PT Plan Problem List Problem List: Activity Tolerance, Functional Strength, Safety, Balance, Gait, Transfer, Bed Mobility, ROM Treatment/Plan Treatment Plan: Continue Plan of Care Treatment Plan: Bed Mobility, Education, Functional Activity Angelo, Functional Strength, Gait, Safety, Therapeutic Exercise, Transfers Treatment Duration: Oct 08, 2018 Frequency: 6 times per week Estimated Hrs Per Day: .25 hour per day Patient and/or Family Agrees t: Yes Time/GCodes Time In: 1010 Time Out: 1033 Total Billed Treatment Time: 23 Total Billed Treatment 1 Visit FA x 2 - 23' RUDDY BARRIENTOS PT Sep 26, 2018 11:21
[2018-09-26 12:00] VITALS: BP 128/74
--- NOTE | 2018-09-26 15:04 | Progress Note-Hospitalist ---
Progress Note Progress Notes/Assess & Plan Date Seen 09/26/18 Time Seen by Provider: 14:58 Assessment & Plan The patient is a 78-year-old white male known to me. He was admitted with hyponatremia. He is suffered difficulty with this for some time. He has amyloidosis and recently started a chemotherapy to hope to arrest the process. Dr. Nelson states that there have been no sodiums greater than 130 in the recent past. He also has considerable edema which is patently obvious in the arms and legs and particularly the belly and scrotum. This is a function of his albumin which is 1.9 or less. Physical exam: He is pleasant. Lungs are clear to auscultation. CV is regular. The arms both upper and lower are edematous and doughy. The abdomen is grossly distended and there is a percussible fluid wave. There is considerable fluid in the scrotum. The legs like the arms are doughy as well. His usual weight is said to be about 160 and he current weight is 210. Impression: Hyponatremia, improved. Amyloidosis. Hypoalbuminemia and subsequent third spacing. Plan: Add albumin and Lasix. He will require careful follow up on his electrolytes. LUZ CHRISTINA MD Sep 26, 2018 15:04
[2018-09-26] MEDS ORDERED: FUROSEMIDE 40 MG/4 ML INJ (LASIX) IVP NR (15:15)
[2018-09-26] MEDS: ALBUMIN 25% 25 GM/100 ML 100 ML IV SCH ×2 (15:25→23:10)
[2018-09-26 16:12] VITALS: BP 128/78
[2018-09-26] MEDS: TAMSULOSIN 0.4 MG (FLOMAX) CAP PO SCH (17:42)
[2018-09-26 19:56] VITALS: BP 140/77
[2018-09-26] MEDS: ROSUVASTATIN 20 MG (CRESTOR) TABLET PO SCH (20:30)
[2018-09-26] MEDS: MELATONIN 3 MG TABLET PO PRN (22:15)
[2018-09-27] VITALS: BP 124/71
[2018-09-27] MEDS ORDERED: FUROSEMIDE 40 MG/4 ML INJ (LASIX) ONE (01:00)
[2018-09-27] MEDS: RT-ALBUTEROL/IPRATROPIUM 3 ML (DUONEB) VIAL INH SCH ×7 (01:44→21:59)
[2018-09-27 04:00] VITALS: BP 129/72
[2018-09-27] MEDS: PIPERACILLIN SODIUM/TAZOBACTAM 4.5 GM in NS (IVPB) 100 ML IV SCH (05:33)
[2018-09-27 06:01] LABS: ALBUMIN 2.3 GM/DL (3.2-4.5); BUN/CREATININE RATIO 21; CALCIUM 7.9 MG/DL (8.5-10.1); CARBON DIOXIDE 22 MMOL/L (21-32); CHLORIDE 100 MMOL/L (98-107); CREATININE SERUM 1.12 MG/DL (0.60-1.30); GFR ESTIMATED > 60; GLUCOSE 108 MG/DL (70-105); POTASSIUM 3.7 MMOL/L (3.6-5.0); SODIUM 130 MMOL/L (135-145)
[2018-09-27] MEDS: ALBUMIN 25% 25 GM/100 ML 100 ML IV SCH ×3 (06:13→23:20)
--- NOTE | 2018-09-27 07:00 | Pulmonary Progress Note ---
Subjective Time Seen by a Provider: 06:59 Subjective/Events-last exam Pt states edema is improving. SOB is stable Sepsis Event Evaluation Height, Weight, BMI Height: 5'10.00" Weight: 212lbs. 8.0oz. 96.363336zk; 25.3 BMI Method:Stated Exam Exam Vital Signs Date Time Temp Pulse Resp B/P (MAP) Pulse Ox O2 Delivery O2 Flow Rate FiO2 09/27/18 06:16 93 Room Air 09/27/18 04:00 96.5 80 20 129/72 (91) 94 Room Air 09/27/18 01:45 91 Room Air 09/27/18 01:00 88 09/27/18 00:00 97.8 83 20 124/71 (88) 92 Room Air 09/26/18 21:38 93 Room Air 09/26/18 21:00 Room Air 09/26/18 19:56 97.7 88 20 140/77 (98) 94 Room Air 09/26/18 19:00 88 09/26/18 18:05 93 Room Air 09/26/18 16:12 98.7 83 20 128/78 (95) 94 Room Air 09/26/18 13:00 88 09/26/18 12:00 97.4 80 20 128/74 (92) 94 Room Air 09/26/18 10:37 92 Room Air 09/26/18 09:00 Room Air 09/26/18 08:00 97.0 79 20 116/73 (87) 92 Room Air 09/26/18 07:22 91 Room Air 09/26/18 07:00 77 I & O 09/27/18 07:00 Intake Total 1650 ml Output Total 600 ml Balance 1050 ml Height & Weight Height: 5'10.00" Weight: 212lbs. 8.0oz. 96.769393ll; 25.3 BMI Method:Stated General Appearance: WD/WN, Anxious HEENT: Normal ENT Inspection, Pharynx Normal Neck: Normal Inspection Respiratory: Lungs Clear, No Respiratory Distress Cardiovascular: Regular Rate, Rhythm, No Murmur Capillary Refill: Less Than 3 Seconds Extremity: Swelling (1+ bilaterally, improved) Neurologic/Psychiatric: Alert, Oriented x3 Skin: Normal Color, Warm/Dry Lymphatic: No Adenopathy Results Lab Laboratory Tests 09/26/18 06:55 09/27/18 05:20 Assessment/Plan Assessment/Plan Severe acute on chronic hyponatremia - continue to monitor Plural effusions s/p pleural effusion -Pt will probably need home 02 upon discharge. Debility/weakness - pt is complaining and is worried about weakness. -Pt/ot -up to chair TID Diastolic CHF - grade 2 pneumonia- improving - zosyn Orthostatic hypotension with Hx of adrenal insuff - cortisone 30mg BID Dysuria s/p dailey cath Delirium Syncope/fall Amyloidosis s/p chemo CLAY MATIAS DO Sep 27, 2018 07:00
[2018-09-27 08:00] VITALS: BP 117/67
[2018-09-27] MEDS: ONDANSETRON 4 MG/2 ML (SDV) Z0FRAN IV PRN ×2 (08:05→17:39)
--- NOTE | 2018-09-27 08:23 | Progress Note-Urology ---
Progress Note-Urology Progress Notes/Assess & Plan Progress/Assessment & Plan VOIDING ON OWN. FEELS EMPTYING WELL. NO VOIDING COMPLAINTS. SCROTAL EDEMA IMPROVED. CONTINUE DIURESIS Final Diagnosis URINE RETENTION (RESOLVED) AND SCROTAL EDEMA (IMPROVED) SALINAS CABELLO MD Sep 27, 2018 8:23 am
--- NOTE | 2018-09-27 09:23 | Physical Therapy Progress Note ---
Therapy Progress Note Patient spouse declined PT secondary to patient is having CP and nausea and has had a "rough night". RN confirms. PT will check patient status in p.m. 1 visit ref RUDDY BARRIENTOS PT Sep 27, 2018 09:23
[2018-09-27] MEDS: ANTACID SUSP 30 ML UDC (MYLANTA) PO PRN ×2 (09:29→17:39)
--- NOTE | 2018-09-27 10:18 | Occ Therapy Progress Note ---
Therapy Progress Note Attempted OT treatment at 1015. Pt resting in bed, declined to participate at this time. Pt states he had a rough night and is having nausea this morning. Pt states "maybe later." Will attempt at later time and complete treatment as pt able to tolerate. Pt denies needs at this time 1, visit GALLITO LUU OT Sep 27, 2018 10:18
--- NOTE | 2018-09-27 11:35 | Physical Therapy Progress Note ---
Therapy Progress Note Pts declined therapy services for the day due to pt not feeling well. PT will return in AM to continue therapy. RUDDY BARRIENTOS PT Sep 27, 2018 11:35
--- NOTE | 2018-09-27 11:53 | Occ Therapy Progress Note ---
Therapy Progress Note Attempted therapy at 1150. Pt declined therapy today, states he needs to rest. Agreed to attempt tomorrow as able. 1, visit GALLITO LUU OT Sep 27, 2018 11:53
[2018-09-27 12:50] VITALS: BP 147/78
--- NOTE | 2018-09-27 13:58 | Progress Note-Hospitalist ---
Progress Note Progress Notes/Assess & Plan Date Seen 09/27/18 Time Seen by Provider: 13:53 Assessment & Plan The patient had a relatively good day yesterday. Today he is largely unable to do much of anything. It is not clear whether this represents new developments or just cyclic bursts of energy. With the albumin and Lasix he appears less edematous which the finds to be hopeful. He complains of upper abdominal discomfort and belching. The status of his bowel function is not completely clear and will require a KUB for further evaluation. He has not eaten today. He has not participated in physical therapy today. After the first 2 doses of albumin his serum albumin is reported at 2.3 up from less than 1.9. Physical exam: He is rather motionless in bed. He is wearing his red [employer] base[employer] hat. Lungs are clear to auscultation. CV is regular. Abdomen does not seem so distended as yesterday. It is very tympanitic to percussion. The arms and thighs seem to be reduced in size as well. Impression: Advanced amyloidosis. Anasarca. Hypoalbuminemia. Plan: KUB to evaluate bowel gas. Continue albumin. Increased dose of Lasix. LUZ CHRISTINA MD Sep 27, 2018 13:58
[2018-09-27] MEDS ORDERED: FUROSEMIDE 40 MG/4 ML INJ (LASIX) IVP NR (14:00)
--- NOTE | 2018-09-27 15:18 | Diagnostic Imaging Report ---
INDICATION: Abdominal pain. EXAMINATION: KUB at 2:23 PM. FINDINGS: There is gaseous distention of the stomach. The small bowel gas pattern is normal. There is stool in the ascending colon and in the rectum. The rectum measures 8 cm in diameter. IMPRESSION: Gaseous distention of the stomach. I could not exclude rectal fecal impaction. Dictated by: Dictated on workstation # [id number]
[2018-09-27] MEDS: ACYCLOVIR 400 MG TABLET (ZOVIRAX) PO SCH ×2 (15:21→23:19)
[2018-09-27] MEDS: HYDROCORTISONE 20 MG (CORTEF) TAB PO SCH ×2 (15:21→23:19)
[2018-09-27] MEDS: TAMSULOSIN 0.4 MG (FLOMAX) CAP PO SCH (18:25)
[2018-09-27] MEDS ORDERED: SALINE NASAL SPRAY (OCEAN) 45 ML BTL PRN (18:30)
[2018-09-27 20:00] VITALS: BP 151/86
[2018-09-27] MEDS ORDERED: PROMETHAZINE INJ 25 MG/ML (PHENERGAN) AMP ONE (21:03)
[2018-09-27] MEDS ORDERED: PROMETHAZINE INJ 25 MG/ML (PHENERGAN) AMP IVP PRN (21:15)
[2018-09-27] MEDS: ROSUVASTATIN 20 MG (CRESTOR) TABLET PO SCH (23:19)
[2018-09-27] MEDS: MELATONIN 3 MG TABLET PO PRN (23:20)
[2018-09-28] VITALS: BP 140/77
[2018-09-28] MEDS: RT-ALBUTEROL/IPRATROPIUM 3 ML (DUONEB) VIAL INH SCH ×6 (02:44→23:26)
[2018-09-28] MEDS: ONDANSETRON 4 MG/2 ML (SDV) Z0FRAN IV PRN (03:00)
[2018-09-28 04:00] VITALS: BP 159/90
[2018-09-28] MEDS: ALBUMIN 25% 25 GM/100 ML 100 ML IV SCH ×3 (05:06→23:01)
--- NOTE | 2018-09-28 06:32 | Pulmonary Progress Note ---
Subjective Time Seen by a Provider: 06:28 Subjective/Events-last exam PT is on room air only. Pulmonary dale pt is looking much better. Jenaro is D/c' d. PT is complaining of nausea and vomiting. Sepsis Event Evaluation Height, Weight, BMI Height: 5'10.00" Weight: 212lbs. 8.0oz. 96.144691un; 25.3 BMI Method:Stated Exam Exam Vital Signs Date Time Temp Pulse Resp B/P (MAP) Pulse Ox O2 Delivery O2 Flow Rate FiO2 09/28/18 02:44 Room Air 09/28/18 01:05 78 09/28/18 00:00 97.8 78 20 140/77 (98) 92 Room Air 09/27/18 21:59 Room Air 09/27/18 21:00 Room Air 09/27/18 20:00 98.2 78 18 151/86 (107) 93 Room Air 09/27/18 19:00 71 09/27/18 18:55 Room Air 09/27/18 13:00 72 09/27/18 12:50 98.9 80 18 147/78 (101) 96 Room Air 09/27/18 09:00 Room Air 09/27/18 08:00 96.3 77 22 117/67 (84) 94 Room Air 09/27/18 07:00 83 I & O 09/28/18 07:00 Intake Total 1500 ml Output Total 2625 ml Balance -1125 ml Height & Weight Height: 5'10.00" Weight: 212lbs. 8.0oz. 96.441368ax; 25.3 BMI Method:Stated General Appearance: WD/WN, Anxious HEENT: Normal ENT Inspection, Pharynx Normal Neck: Normal Inspection Respiratory: Lungs Clear, No Respiratory Distress Cardiovascular: Regular Rate, Rhythm, No Murmur Capillary Refill: Less Than 3 Seconds Extremity: Swelling (1+ bilaterally, improved) Neurologic/Psychiatric: Alert, Oriented x3 Skin: Normal Color, Warm/Dry Lymphatic: No Adenopathy Results Lab Laboratory Tests 09/26/18 06:55 09/27/18 05:20 Assessment/Plan Assessment/Plan Severe acute on chronic hyponatremia - continue to monitor Plural effusions s/p pleural effusion -Pt will probably need home 02 upon discharge. Debility/weakness - pt is complaining and is worried about weakness. -Pt/ot -up to chair TID Nausea/vomiting -check amylase, lipase. Diastolic CHF - grade 2 pneumonia- resolved - zosyn d/c'd Orthostatic hypotension with Hx of adrenal insuff Dysuria s/p dailey cath Delirium Syncope/fall Amyloidosis s/p chemo PT is doing much better pulmonary dale. I am going to sign off. Currently he is on room air only. CLAY MATIAS DO Sep 28, 2018 06:32
--- NOTE | 2018-09-28 08:31 | Progress Note-Urology ---
Progress Note-Urology Progress Notes/Assess & Plan Progress/Assessment & Plan CONTINUES WELL CESAR. COMPLAINS OF NAUSEA AND VOMITING. TO CHECK WITH DR CHRISTINA Final Diagnosis URINE RETENTION SALINAS CABELLO MD Sep 28, 2018 08:31
[2018-09-28] MEDS: HYDROCORTISONE 20 MG (CORTEF) TAB PO SCH ×2 (09:00→21:31)
[2018-09-28] MEDS: ACYCLOVIR 400 MG TABLET (ZOVIRAX) PO SCH ×2 (09:00→21:31)
[2018-09-28 09:14] LABS: AMYLASE 42 U/L (25-125); LIPASE 15 U/L (8-78)
[2018-09-28 09:56] LABS: ALANINE AMINOTRANSFERASE 21 U/L (0-55); ALBUMIN 2.5 GM/DL (3.2-4.5); ALKALINE PHOSPHATASE 36 U/L (40-136); BILIRUBIN,TOTAL 0.6 MG/DL (0.1-1.0); BUN/CREATININE RATIO 22; CALCIUM 8.1 MG/DL (8.5-10.1); CARBON DIOXIDE 25 MMOL/L (21-32); CHLORIDE 99 MMOL/L (98-107); CREATININE SERUM 1.16 MG/DL (0.60-1.30); GFR ESTIMATED > 60; GLUCOSE 76 MG/DL (70-105); POTASSIUM 3.8 MMOL/L (3.6-5.0); SODIUM 129 MMOL/L (135-145); TOTAL PROTEIN 3.6 GM/DL (6.4-8.2)
--- NOTE | 2018-09-28 10:37 | Progress Note-Hospitalist ---
Subjective HPI/CC On Admission Date Seen by Provider: Sep 28, 2018 Time Seen by Provider: 09:30 Pt is a 78yoCM with a PMH amyloidosis who presented to the ER for confusion, syncope, and altered mental status. I was called to bedside shortly after arrival to the floor due to a syncopal episode while on the toilet. He is able to tell me some limited history and his is at bedside to fill in some details. Reportedly he just started chemo for amyloidosis with Dr Markham last week. He has had poor appetite and little intake over the weekend due to this and then began to hallucinate prompting him to seek evaluation. She state shis chemo regimen is cytaxin and velcade and she has already called and spoke with his oncologist at who believe this to be due to his chemo. He as found to be hyponatremic at 117 and admitted for further management. Currently he is oriented x4 and denies any hallucinations at this time. Subjective/Events-last exam 09/19/18 Patient admitted 09/19/18 through ER due to confusion and sodium level of 117 3 days after starting chemotherapy for amyloidosis 09/20/18 Vanc and Zosyn initiated for presumed pneumonia during hospital admit. 09/23/18 improved labs with sodium level and decreased wbc 12.4 09/24: edema with scrotal edema worsened, thoracentesis 09/25: urinary retention Urology consulted 09/26: Albumin given for low albumin to help edema 09/27: KUB showed increased bowel gas and possible fecal impaction 09/28/18: Dr Romero consulted for fecal impaction Patient had a bad night per Patient just now sleeping We'll consult Dr. Romero for fecal impaction Family talking to Dr. Markham for possible transfer back up to and he will make those arrangements if everyone is in agreement Place patient nothing by mouth for now Review of Systems General: Fatigue Gastrointestinal: Nausea, Vomiting, Abdominal Pain, Constipation Objective Exam Vital Signs Vital Signs Date Time Temp Pulse Resp B/P (MAP) Pulse Ox O2 Delivery O2 Flow Rate FiO2 09/28/18 09:00 Room Air 09/28/18 07:00 75 09/28/18 04:00 98.9 16 159/90 (113) 91 09/25/18 08:00 0.00 Capillary Refill : Less Than 3 SecondsLess Than 3 Seconds General Appearance: No Apparent Distress, WD/WN, Chronically ill, Cachetic Respiratory: Chest Non Tender, Lungs Clear, Normal Breath Sounds, No Accessory Muscle Use, No Respiratory Distress Cardiovascular: Regular Rate, Rhythm, No Edema, No Gallop, No JVD, No Murmur, Normal Peripheral Pulses Neurologic/Psychiatric: Other (sleeping) Results/Procedures Lab Laboratory Tests 09/28/18 08:40 09/28/18 10:30 Patient resulted labs reviewed. Imaging: Reviewed Imaging Report Assessment/Plan Assessment and Plan Assess & Plan/Chief Complaint Assessment: Severe hyponatremia Rapidly progressive amyloidosis receiving chemotherapy Fecal impaction with ileus with nausea and vomiting Bilateral pneumonia Pleural effusion status post thoracentesis Plan: Consult Dr. Romero Monitor edema Supportive care for scrotal edema Monitor urinary retention Nothing by mouth until Dr. Romero makes decision regarding bowel gas on x-ray and fecal impaction Critical Care Critical Care: Critically Ill Patient Diagnosis/Problems Diagnosis/Problems (1) Poor prognosis Status: Acute (2) Syncope and collapse Status: Resolved Resolution Date/Time: 09/22/18 @ 07:42 (3) Hyponatremia Status: Acute (4) Delirium Status: Acute (5) Amyloidosis Status: Chronic Qualifiers: Amyloidosis type: unspecified amyloidosis Qualified Codes: E85.9 - Amyloidosis, unspecified (6) Moderate protein-energy malnutrition Status: Acute (7) Scrotal edema Status: Acute (8) Pleural effusion Status: Acute (9) Weakness Status: Acute Clinical Quality Measures DVT/VTE Risk/Contraindication: Risk Factor Score Per Nursin RFS Level Per Nursing on Admit: 4+=Very High SHOBHA GATICA DO Sep 28, 2018 10:37
[2018-09-28 10:42] LABS: BASOPHILS % (AUTO) 0 % (0-10); EOSINOPHILS # (AUTO) 0.1 10^3/uL (0.0-0.3); EOSINOPHILS % (AUTO) 1 % (0-10); HEMATOCRIT 27 % (40-54); LYMPHOCYTES # (AUTO) 0.4 X 10^3 (1.0-4.0); LYMPHOCYTES % (AUTO) 4 % (12-44); MEAN CORPUSCULAR HEMOGLOBIN 32 PG (25-34); MEAN CORPUSCULAR HGB CONC 34 G/DL (32-36); MEAN CORPUSCULAR VOLUME 94 FL (80-99); MEAN PLATELET VOLUME 11.5 FL (7.4-10.4); MONOCYTES # (AUTO) 0.5 X 10^3 (0.0-1.0); MONOCYTES % (AUTO) 5 % (0-12); NEUTROPHILS # (AUTO) 8.7 X 10^3 (1.8-7.8); NEUTROPHILS % (AUTO) 90 % (42-75); PLATELET COUNT 127 10^3/uL (130-400); RED BLOOD COUNT 2.85 10^6/uL (4.35-5.85); RED CELL DISTRIBUTION WIDTH 13.9 % (10.0-14.5); WHITE BLOOD COUNT 9.8 10^3/uL (4.3-11.0)
[2018-09-28 12:00] VITALS: BP 143/81
--- NOTE | 2018-09-28 14:41 | Occ Therapy Progress Note ---
Therapy Progress Note [id number] Pt's declined therapy for him today. He was in bed with eyes closed She reported he has been vomiting bile and they are waiting for medical direction. Will attempt again tomorrow. CASSY HARGROVE OT Sep 28, 2018 14:41
--- NOTE | 2018-09-28 15:40 | Physical Therapy Daily Note ---
PT Daily Note-Current Subjective Patient in bed pre tx, and needed to sit at the edge of the bed so he could vomit in a basin. Pt agreed to be transferred over to bedside chair. Pain Numeric Pain Scale: 0-No Pain Location: No Pain Reported Appearance Patient in recliner post tx with nurse call, phone, tray, all needs met. Mental Status Patient Orientation: Normal For Age Attachments: IV Transfers Functional [place] Measure 0=Not Assessed/NA 4=Minimal Assistance 1=Total Assistance 5=Supervision or Setup 2=Maximal Assistance 6=Modified [place] 3=Moderate Assistance 7=Complete IndependenceIRFPAI Quality Coding Scale 6 Independent with activity with or without an assistive device 5 Patient requires set up or clean up by helper. Patient completes activity by themselves 4 Supervision or touching assist (CGA). [place] provide cues , steadying assist 3 The helper provides less than half the effort to complete the activity 2 The helper provides more than half the effort to complete the activity 1 Dependent. The helper does all the effort to complete an activity 7 Patient refused to complete or attempt activity 9 The patient did not perform the activity before the current illness or injury 88 Not attempted due to Medical conditions or safety concerns Transfers (B, C, W/C) (FIM): 3 Scootin Sit to/from Stand: 3 Weight Bearing Right Lower Extremity: Right Full Weight Bearing Left Lower Extremity: Left Full Weight Bearing Assessment Current Status: Poor Progress Pt was sitting bedside when PT entered room. Pt BP was 147/78 when sitting bedside. Pt was a Mod A in standing pivot transfer over to bedside recliner. Patient was able to sit alright and stated that he was not experiencing any dizziness. Pt second blood pressure reading was 117/76. Pt left in chair with call light and his family when PT left room. PT Short Term Goals Short Term Goals Time Frame: Sep 30, 2018 Gait (FIM): 2 Distance (FIM): 8=463-64 ft Gait Distance Comment: 100' Gait Level of Assist: 4 Gait Assistive Device: FWW PT Senior Living Goals Senior Living Goals PT Liaison Officer Goals Time Frame: Oct 08, 2018 Transfers (B,C,W/C) (FIM): 6 Gait (FIM): 6 Gait distance (FIM): 3=150 ft Distance: 200' Gait Level of Assist: 6 Gait Assistive Device: FWW PT Plan Problem List Problem List: Activity Tolerance, Functional Strength, Safety, Balance, Gait, Transfer, Bed Mobility, ROM Treatment/Plan Treatment Plan: Continue Plan of Care Treatment Plan: Bed Mobility, Education, Functional Activity Angelo, Functional Strength, Gait, Safety, Therapeutic Exercise, Transfers Treatment Duration: Oct 08, 2018 Frequency: 6 times per week Estimated Hrs Per Day: .25 hour per day Patient and/or Family Agrees t: Yes Safety Risks/Education Patient Education: Transfer Techniques, Correct Positioning, Safety Issues Teaching Recipient: Patient Teaching Methods: Demonstration, Discussion Response to Teaching: Reinforcement Needed Time/GCodes Time In: 1505 Time Out: 1520 Total Billed Treatment Time: 15 Total Billed Treatment 1 visit FA - 15' YANELY JENSEN PT Sep 28, 2018 15:39
[2018-09-28 16:00] VITALS: BP 143/81
[2018-09-28] MEDS ORDERED: MINERAL OIL ENEMA 133 ML BTL PR PRN (16:00)
--- NOTE | 2018-09-28 16:13 | CONSULTATION REPORT ---
DATE OF SERVICE: 09/28/2018 ATTENDING PRIMARY CARE PHYSICIAN: Dr. Gu. HISTORY OF PRESENT ILLNESS: The patient is a 78-year-old male, recently diagnosed with amyloidosis. He was seen at [facility] by Oncology and was started on what appears to be Cytoxan as well as a Velcade. He states that this was in early August. Since that time, he has not felt well, which may be secondary to side effects to the chemotherapeutic agents. He presented to the Emergency Department confused and had a syncopal episode as well as altered mental status. Upon admission, he was found to be hyponatremic as well. He was admitted to the ICU and has been under internal medicine as well as pulmonary critical care. Since being admitted, he has slightly improved and was transferred to the floor. We were consulted for a possible fecal impaction as well as nausea. A recent abdominal x-ray was performed, which did show a significant amount of stool in the distal rectum. He reports that he has had some bowel movements; however, small and nothing significant. He also states that his abdomen is distended and he is able to drink some liquids and eat small amounts; however, has very little appetite and does feel episodes of nausea. At this time, we will proceed with conservative management and start with Dulcolax suppositories, if this does not promote a significant bowel movement and start enemas. The last resort would be disimpaction under some form of mild anesthesia. PAST MEDICAL HISTORY: Coronary artery disease, hypertension, hypercholesterolemia, neuropathy, macular degeneration, amyloidosis. ALLERGIES: STATINS, CASEIN AND GLUTEN. MEDICATIONS: 1. Acyclovir 400 mg b.i.d. 2. Cyclophosphamide 550 mg daily. 3. Dexamethasone 4 mg daily. 4. Doxycycline 100 mg b.i.d. 5. Furosemide 40 mg daily. 6. Hydrocortisone 10 mg daily. 7. Rosuvastatin 10 mg daily. 8. Zolpidem 5 mg daily. SOCIAL HISTORY: Negative smoke, social alcohol. FAMILY HISTORY: Noncontributory. REVIEW OF SYSTEMS: Well-nourished male, currently fatigued. However, is awake and alert and sitting up into a chair and does answer all questions appropriately. He does report episodic waves of nausea; however, no vomiting. He states that he did have a few small bowel movements in the past 2 days; however, nothing significant. No red blood per rectum, no dark tarry stools. He does have slight abdominal distention. No peritoneal signs. No fever or chills; however, he has lost weight since starting chemotherapeutic agents. PHYSICAL EXAMINATION: VITAL SIGNS: Temperature 97.0, blood pressure 143/81, pulse 80, respirations 93% on room air. CHEST: A few scattered rales bilaterally. HEART: Regular, no murmurs. EXTREMITIES: +2/3 bilateral upper and lower extremity edema. Negative Homans sign. HEENT: No scleral icterus. NECK: No cervical lymphadenopathy. ABDOMEN: Slightly distended. There is no point tenderness or any peritoneal signs or any hernias palpable. SKIN: Warm, dry. LABORATORY DATA: WBC 9.8, hemoglobin 9.0, hematocrit 27, platelets 127. BUN 26, creatinine of 1.16. ASSESSMENT AND PLAN: A 78-year-old male with recent diagnosis of amyloidosis, started on chemotherapy. He is hyponatremic and also has constipation, fecal impaction as well as possible ileus and gastritis causing his nausea and vomiting. We will proceed with conservative medical management and start with Dulcolax suppositories. If he does not have a significant bowel movement, then we will proceed with enemas and possible p.o. laxatives starting with MiraLax and possible magnesium citrate. If he does not have a significant bowel movement or persistent symptoms, we may then need to proceed with disimpaction manually. Job ID: [id number] DocumentID: [id number] Dictated Date: 09/28/2018 15:48:18 Field Ring Assembler Date: 09/28/2018 16:12:39 Dictated By: ANA MENDEZ MD [facility]
[2018-09-28] MEDS: ONDANSETRON 4 MG/2 ML (SDV) Z0FRAN IVP PRN ×2 (16:31→21:30)
[2018-09-28] MEDS: TAMSULOSIN 0.4 MG (FLOMAX) CAP PO SCH (17:19)
[2018-09-28] MEDS: BISACODYL 10 MG SUPP (DULCOLAX) PR SCH (17:20)
[2018-09-28 20:00] VITALS: BP 160/89
[2018-09-28] MEDS: ROSUVASTATIN 20 MG (CRESTOR) TABLET PO SCH (21:31)
[2018-09-28] MEDS: MELATONIN 3 MG TABLET PO PRN (21:31)
[2018-09-29] MEDS: RT-ALBUTEROL/IPRATROPIUM 3 ML (DUONEB) VIAL INH SCH (02:28)
[2018-09-29] MEDS: ALBUMIN 25% 25 GM/100 ML 100 ML IV SCH (06:01)
[2018-09-29 06:10] LABS: BASOPHILS % (AUTO) 0 % (0-10); EOSINOPHILS % (AUTO) 0 % (0-10); HEMATOCRIT 27 % (40-54); HEMOGLOBIN 9.1 G/DL (13.3-17.7); LYMPHOCYTES # (AUTO) 0.3 X 10^3 (1.0-4.0); LYMPHOCYTES % (AUTO) 4 % (12-44); MEAN CORPUSCULAR HEMOGLOBIN 32 PG (25-34); MEAN CORPUSCULAR HGB CONC 34 G/DL (32-36); MEAN CORPUSCULAR VOLUME 93 FL (80-99); MEAN PLATELET VOLUME 11.8 FL (7.4-10.4); MONOCYTES # (AUTO) 0.4 X 10^3 (0.0-1.0); MONOCYTES % (AUTO) 5 % (0-12); NEUTROPHILS # (AUTO) 7.8 X 10^3 (1.8-7.8); NEUTROPHILS % (AUTO) 91 % (42-75); PLATELET COUNT 136 10^3/uL (130-400); RED BLOOD COUNT 2.85 10^6/uL (4.35-5.85); RED CELL DISTRIBUTION WIDTH 13.5 % (10.0-14.5); WHITE BLOOD COUNT 8.5 10^3/uL (4.3-11.0)
[2018-09-29 07:01] LABS: ALANINE AMINOTRANSFERASE 23 U/L (0-55); ALBUMIN 2.9 GM/DL (3.2-4.5); ALKALINE PHOSPHATASE 43 U/L (40-136); BILIRUBIN,TOTAL 0.7 MG/DL (0.1-1.0); BUN/CREATININE RATIO 26; CALCIUM 8.2 MG/DL (8.5-10.1); CARBON DIOXIDE 22 MMOL/L (21-32); CHLORIDE 98 MMOL/L (98-107); CREATININE SERUM 1.04 MG/DL (0.60-1.30); GFR ESTIMATED > 60; GLUCOSE 100 MG/DL (70-105); POTASSIUM 3.8 MMOL/L (3.6-5.0); SODIUM 129 MMOL/L (135-145); TOTAL PROTEIN 3.9 GM/DL (6.4-8.2)
[2018-09-29 08:00] VITALS: BP 163/93
--- NOTE | 2018-09-29 09:12 | Progress Note-Hospitalist ---
SHOBHA GATICA 09/29/18 0912: Subjective HPI/CC On Admission Date Seen by Provider: Sep 29, 2018 Time Seen by Provider: 10:15 Pt is a 78yoCM with a PMH amyloidosis who presented to the ER for confusion, syncope, and altered mental status. I was called to bedside shortly after arrival to the floor due to a syncopal episode while on the toilet. He is able to tell me some limited history and his is at bedside to fill in some details. Reportedly he just started chemo for amyloidosis with Dr Markham last week. He has had poor appetite and little intake over the weekend due to this and then began to hallucinate prompting him to seek evaluation. She state shis chemo regimen is cytaxin and velcade and she has already called and spoke with his oncologist at who believe this to be due to his chemo. He as found to be hyponatremic at 117 and admitted for further management. Currently he is oriented x4 and denies any hallucinations at this time. Subjective/Events-last exam Spoke to Dr. Markham No PEG tube or TPN or any other artificial nutrition is recommended due to risk outweighing the benefits and I explained that to the family Very in depth conversation with the family with Ana's nurse which tried to focus on trying to resolve the nausea We'll check x-ray to be sure fecal impaction has passed No indication for higher level of care due to debility as the cause of his issue and not the amyloid Albumin D# 3 so we'll discontinue since albumin 2.4 today Scrotal edema about the same Refuse physical therapy and meds today I'll contemplate swing bed evaluation since he is on day number 10 acute MedSurg day Overall very slow recovery and family wanting to go to either or [facility] but the electrolytes and SIADH and continued nausea are the issues causing the most stability and he cannot withstand chemotherapy until all of these are resolved Review of Systems Gastrointestinal: Nausea Objective Exam Vital Signs Vital Signs Date Time Temp Pulse Resp B/P (MAP) Pulse Ox O2 Delivery O2 Flow Rate FiO2 09/29/18 08:00 97.6 85 16 163/93 (116) 95 Room Air 09/25/18 08:00 0.00 Capillary Refill : Less Than 3 SecondsLess Than 3 Seconds General Appearance: No Apparent Distress, WD/WN, Chronically ill, Thin Respiratory: Chest Non Tender, Lungs Clear, Normal Breath Sounds, No Accessory Muscle Use, No Respiratory Distress Cardiovascular: Regular Rate, Rhythm, No Edema, No Gallop, No JVD, No Murmur, Normal Peripheral Pulses Gastrointestinal: Normal Bowel Sounds, No Organomegaly, No Pulsatile Mass, Non Tender, Soft Neurologic/Psychiatric: Alert, Oriented x3, No Motor/Sensory Deficits, Depressed Affect Results/Procedures Lab Laboratory Tests 09/29/18 05:50 Patient resulted labs reviewed. Imaging: Reviewed Imaging Report Assessment/Plan Assessment and Plan Assess & Plan/Chief Complaint Assessment: Severe hyponatremia Rapidly progressive amyloidosis receiving chemotherapy Fecal impaction with ileus with nausea and vomiting s/p multiple BM's so checking xray to be sure it passed Bilateral pneumonia Pleural effusion status post thoracentesis Plan: Consult Dr. Romero is appreciated Monitor edema Supportive care for scrotal edema and will DC albumin Monitor urinary retention Reglan Q6 Scop patch Swing bed if he participates in therapy until first of the week then home or NHP for skilled until he is strong enough to receive treatment for amyloid Critical Care Critical Care: Critically Ill Patient Diagnosis/Problems Diagnosis/Problems (1) Refractory nausea and vomiting Status: Acute (2) Poor prognosis Status: Acute (3) Syncope and collapse Status: Resolved Resolution Date/Time: 09/22/18 @ 07:42 (4) Hyponatremia Status: Acute (5) Delirium Status: Acute (6) Amyloidosis Status: Chronic Qualifiers: Amyloidosis type: unspecified amyloidosis Qualified Codes: E85.9 - Amyloidosis, unspecified (7) Moderate protein-energy malnutrition Status: Acute (8) Scrotal edema Status: Acute (9) Pleural effusion Status: Acute (10) Weakness Status: Acute (11) Fecal impaction (12) SIADH (syndrome of inappropriate ADH production) Status: Acute (13) Adrenal insufficiency Status: Chronic Clinical Quality Measures DVT/VTE Risk/Contraindication: Risk Factor Score Per Nursin RFS Level Per Nursing on Admit: 4+=Very High CARLOS EDUARDO ERNST MED STUDENT 09/29/18 1037: Subjective Subjective/Events-last exam Nursing staff reports that patient is refusing treatments and medications He is asking for a PEG tube He has not been ambulating He did have a bowel movement this morning Objective Exam General Appearance: No Apparent Distress, WD/WN Assessment/Plan Assessment and Plan Assess & Plan/Chief Complaint Assessment: 1) hyponatremia 2) fecal impaction 3 nausea and vomiting Plan: 1) continue with IVF 2) continue antiemetics SHOBHA GATICA DO Sep 29, 2018 09:12 CARLOS EDUARDO ERNST MED STUDENT Sep 29, 2018 10:37
[2018-09-29] MEDS: METOCLOPRAMIDE INJ 10 MG/2 ML (REGLAN) IVP SCH ×3 (09:42→23:37)
[2018-09-29] MEDS: HYDROCORTISONE 20 MG (CORTEF) TAB PO SCH ×2 (09:59→21:36)
[2018-09-29] MEDS: ACYCLOVIR 400 MG TABLET (ZOVIRAX) PO SCH ×2 (09:59→21:36)
[2018-09-29] MEDS: BISACODYL 10 MG SUPP (DULCOLAX) PR SCH (10:00)
--- NOTE | 2018-09-29 10:18 | Physical Therapy Progress Note ---
Therapy Progress Note Patient and family declined PT treatment this a.m. due to nausea and overall, not feeling well. Will attempt later today. 1 ref ([id number]) RUDDY BARRIENTOS PT Sep 29, 2018 10:18
[2018-09-29] MEDS ORDERED: SCOPOLAMINE 1.5 MG (TRANSDERM-SCOP) PATCH TD NR (10:26)
[2018-09-29] MEDS ORDERED: ENOXAPARIN 40 MG/0.4 ML (LOVENOX) SYR SC SCH (10:45)
--- NOTE | 2018-09-29 11:42 | Diagnostic Imaging Report ---
INDICATION: Fecal impaction. Supine and upright abdomen images 11:40 AM. FINDINGS: Bowel gas pattern is normal. There is a moderate amount of stool in the descending and sigmoid colon. Rectum does not appear distended. IMPRESSION: Moderate amount of stool present in the descending and sigmoid colon. Dictated by: Dictated on workstation # [id number]
[2018-09-29 12:00] VITALS: BP 158/91
--- NOTE | 2018-09-29 14:44 | Physical Therapy Daily Note ---
PT Daily Note-Current Subjective Pt awake in bed visiting with family when PT arrived. Pt needed to encouraged to participate in therapy. Pain Numeric Pain Scale: 0-No Pain Location: No Pain Reported Mental Status Patient Orientation: Normal For Age Transfers Functional [place] Measure 0=Not Assessed/NA 4=Minimal Assistance 1=Total Assistance 5=Supervision or Setup 2=Maximal Assistance 6=Modified [place] 3=Moderate Assistance 7=Complete IndependenceIRFPAI Quality Coding Scale 6 Independent with activity with or without an assistive device 5 Patient requires set up or clean up by helper. Patient completes activity by themselves 4 Supervision or touching assist (CGA). [place] provide cues , steadying assist 3 The helper provides less than half the effort to complete the activity 2 The helper provides more than half the effort to complete the activity 1 Dependent. The helper does all the effort to complete an activity 7 Patient refused to complete or attempt activity 9 The patient did not perform the activity before the current illness or injury 88 Not attempted due to Medical conditions or safety concerns Transfers (B, C, W/C) (FIM): 4 Scootin Rollin Supine to/from Sit: 5 Sit to/from Stand: 4 Weight Bearing Right Lower Extremity: Right Full Weight Bearing Left Lower Extremity: Left Full Weight Bearing Gait Training Gait (FIM): 2 Distance (FIM): 0=757-87 ft Distance: 80' Gait Level of Assist: 4 Gait Persons Needed: 1 Gait Assistive Device: FWW Exercises Seated Therapy Exercises: Long arc quads, Kicking activity, Hamstring Curls Seated Reps: 10 Assessment Pt was able to ambualte 80' with a FWW requiring CGA. Patient showed signs of fatigue during ambulation and needed brief rests throughout. Pt performed LE exercises while seated in chair next to bed. Patient will continue to benefit from ambulation and LE exercises to improve overall function for daily demands. PT Short Term Goals Short Term Goals Time Frame: Sep 30, 2018 Gait (FIM): 2 Distance (FIM): 2=852-25 ft Gait Distance Comment: 100' Gait Level of Assist: 4 Gait Assistive Device: FWW PT Snf Goals Snf Goals PT Bone Puller Goals Time Frame: Oct 08, 2018 Transfers (B,C,W/C) (FIM): 6 Gait (FIM): 6 Gait distance (FIM): 3=150 ft Distance: 200' Gait Level of Assist: 6 Gait Assistive Device: FWW PT Plan Problem List Problem List: Activity Tolerance, Functional Strength, Safety, Balance, Gait, Transfer, Bed Mobility, ROM Treatment/Plan Treatment Plan: Continue Plan of Care Treatment Plan: Bed Mobility, Education, Functional Activity Angelo, Functional Strength, Gait, Safety, Therapeutic Exercise, Transfers Treatment Duration: Oct 08, 2018 Frequency: 6 times per week Estimated Hrs Per Day: .25 hour per day Patient and/or Family Agrees t: Yes Time/GCodes Time In: 1419 Time Out: 1433 Total Billed Treatment Time: 14 Total Billed Treatment 1 Visit FA - 14' RUDDY BARRIENTOS PT Sep 29, 2018 14:44
--- NOTE | 2018-09-29 14:56 | Occ Therapy Progress Note ---
Therapy Progress Note 1436 -1440 Pt up in recliner but exhausted. Had just completed two enemas and a longer walk with PT. No treatment provided but did discuss importance of therapy participation, with verbal understanding. Will see tomorrow. visit CASSY HARGROVE OT Sep 29, 2018 14:56
--- NOTE | 2018-09-29 15:23 | Progress Note (SOAP) ---
Subjective Date Seen by a Provider: Sep 29, 2018 Time Seen by a Provider: 15:00 Subjective/Events-last exam Patient seen with Dr. Romero. Patient reports doing better today. Nausea improved and patient starting to take clear liquids, denies any vomiting. Did receive enemas today and was able to get some stool evacuated. KUB repeated this AM and still showed stool in colon. Denies any abdominal pain. Objective Exam Vital Signs Date Time Temp Pulse Resp B/P (MAP) Pulse Ox O2 Delivery O2 Flow Rate FiO2 09/29/18 12:59 85 09/29/18 12:00 98.1 87 18 158/91 (113) 92 Room Air 09/29/18 09:00 Room Air 09/29/18 08:00 97.6 85 16 163/93 (116) 95 Room Air 09/29/18 07:00 83 09/29/18 01:00 81 09/28/18 20:00 99.1 77 16 160/89 (112) 93 Room Air 09/28/18 20:00 Room Air 09/28/18 19:00 76 09/28/18 16:00 99.8 73 20 143/81 (101) 93 Room Air I & O 09/29/18 07:00 Intake Total 1205 ml Output Total 700 ml Balance 505 ml Capillary Refill : Less Than 3 SecondsLess Than 3 Seconds General Appearance: No Apparent Distress, WD/WN, Chronically ill Neck: Full Range of Motion, Normal Inspection, Non Tender, Supple Respiratory: Chest Non Tender, No Accessory Muscle Use, No Respiratory Distress Cardiovascular: Regular Rate, Rhythm Gastrointestinal: normal bowel sounds, non tender, soft Extremity: Non Tender, Pedal Edema, Swelling Neurologic/Psychiatric: Alert, Oriented x3 Skin: Normal Color, Warm/Dry Results Lab Laboratory Tests 09/29/18 05:50: White Blood Count 8.5, Red Blood Count 2.85L, Hemoglobin 9.1L, Hematocrit 27L, Mean Corpuscular Volume 93, Mean Corpuscular Hemoglobin 32, Mean Corpuscular Hemoglobin Concent 34, Red Cell Distribution Width 13.5, Platelet Count 136, Mean Platelet Volume 11.8H, Neutrophils (%) (Auto) 91H, Lymphocytes (%) (Auto) 4L, Monocytes (%) (Auto) 5, Eosinophils (%) (Auto) 0, Basophils (%) (Auto) 0, Neutrophils # (Auto) 7.8, Lymphocytes # (Auto) 0.3L, Monocytes # (Auto) 0.4, Eosinophils # (Auto) 0.0, Basophils # (Auto) 0.0, Sodium Level 129L, Potassium Level 3.8, Chloride Level 98, Carbon Dioxide Level 22, Anion Gap 9, Blood Urea Nitrogen 27H, Creatinine 1.04, Estimat Glomerular Filtration Rate > 60, BUN/ Creatinine Ratio 26, Glucose Level 100, Calcium Level 8.2L, Corrected Calcium 9.1, Total Bilirubin 0.7, Aspartate Amino Transf (AST/SGOT) 35H, Alanine Aminotransferase (ALT/SGPT) 23, Alkaline Phosphatase 43, Total Protein 3.9L, Albumin 2.9L Microbiology 09/21/18 Blood Culture - Final, Complete No growth 09/23/18 Gram Stain - Final, Complete 09/23/18 Body Fluid Culture - Final, Complete No growth 09/20/18 MRSA Screen - Final, Complete MRSA not isolated Assessment/Plan Assessment/Plan Assess & Plan/Chief Complaint A 78-year-old male with recent diagnosis of amyloidosis and stated on chemotherapy. He is hyponatremic and also has constipation, fecal impaction as well as possible ileus and gastritis causing his nausea and vomiting. He was able to evacuate some stool with enemas and was started on reglan which has seemed to help his nausea. KUB was slightly improved. Will start miralax 1/2 dose bid. Clinical Quality Measures DVT/VTE Risk/Contraindication: Risk Factor Score Per Nursin RFS Level Per Nursing on Admit: 4+=Very High VICKIE LINDO APRN Sep 29, 2018 3:23 pm
[2018-09-29] MEDS: POLYETHYLENE GLYCOL 17 GM (MIRALAX) PACK PO PRN ×2 (15:59→21:37)
[2018-09-29 16:00] VITALS: BP 164/90
[2018-09-29] MEDS: TAMSULOSIN 0.4 MG (FLOMAX) CAP PO SCH (16:50)
--- NOTE | 2018-09-29 18:06 | Progress Note-Standard ---
Standard Progress Note Progress Notes/Assess & Plan Date Seen by a Provider: Sep 29, 2018 Time Seen by a Provider: 12:30 Progress/Assessment & Plan By request of the patient and family, I spoke on the phone with Dr. 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 He had seen Mr. Whitt in consultation several weeks ago, before he received his first treatment with cyclophosphamide, bortezomib and dexamethasone. In Dr. 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 This diagnosis is consistent with the patient's overall picture, including bilateral pleural effusions, amador sarca, hypoproteinemia and negative microbiology studies. Dr. Finn did not have any acute care management strategies to offer right now; ultimately, treatment of amyloidosis can only be pursued if the patient is stable. At this time, with his hyponatremia stable and fluid overload improved, patient will need rehabilitation and adequate nutrition. Doxycycline 100mg BID can also be resumed, as it has been shown to have a cardioprotective effect in patients with cardiac amyloidosis. STANLEY RUELAS MD Sep 29, 2018 18:06
[2018-09-29 20:00] VITALS: BP 153/84
[2018-09-29] MEDS: ROSUVASTATIN 20 MG (CRESTOR) TABLET PO SCH (21:36)
[2018-09-29] MEDS: POLYETHYLENE GLYCOL 17 GM (MIRALAX) PACK PO SCH (21:37)
[2018-09-29] MEDS: MELATONIN 3 MG TABLET PO PRN (21:41)
[2018-09-30] VITALS: BP 156/92
[2018-09-30] MEDS: METOCLOPRAMIDE INJ 10 MG/2 ML (REGLAN) IVP SCH (05:14)
[2018-09-30 06:00] LABS: BASOPHILS % (AUTO) 0 % (0-10); EOSINOPHILS % (AUTO) 0 % (0-10); HEMATOCRIT 28 % (40-54); HEMOGLOBIN 9.8 G/DL (13.3-17.7); LYMPHOCYTES # (AUTO) 0.3 X 10^3 (1.0-4.0); LYMPHOCYTES % (AUTO) 3 % (12-44); MEAN CORPUSCULAR HEMOGLOBIN 32 PG (25-34); MEAN CORPUSCULAR HGB CONC 35 G/DL (32-36); MEAN CORPUSCULAR VOLUME 92 FL (80-99); MEAN PLATELET VOLUME 11.9 FL (7.4-10.4); MONOCYTES # (AUTO) 0.5 X 10^3 (0.0-1.0); MONOCYTES % (AUTO) 5 % (0-12); NEUTROPHILS # (AUTO) 7.8 X 10^3 (1.8-7.8); NEUTROPHILS % (AUTO) 91 % (42-75); PLATELET COUNT 130 10^3/uL (130-400); RED BLOOD COUNT 3.03 10^6/uL (4.35-5.85); RED CELL DISTRIBUTION WIDTH 13.5 % (10.0-14.5); WHITE BLOOD COUNT 8.5 10^3/uL (4.3-11.0)
[2018-09-30 06:15] LABS: ALANINE AMINOTRANSFERASE 25 U/L (0-55); ALBUMIN 2.8 GM/DL (3.2-4.5); ALKALINE PHOSPHATASE 51 U/L (40-136); BILIRUBIN,TOTAL 0.8 MG/DL (0.1-1.0); BUN/CREATININE RATIO 29; CALCIUM 8.5 MG/DL (8.5-10.1); CARBON DIOXIDE 24 MMOL/L (21-32); CHLORIDE 98 MMOL/L (98-107); CREATININE SERUM 0.94 MG/DL (0.60-1.30); GFR ESTIMATED > 60; GLUCOSE 72 MG/DL (70-105); POTASSIUM 3.8 MMOL/L (3.6-5.0); SODIUM 130 MMOL/L (135-145); TOTAL PROTEIN 3.9 GM/DL (6.4-8.2)
[2018-09-30 07:56] VITALS: BP 152/89
--- NOTE | 2018-09-30 09:58 | Discharge Summary-Hospitalist ---
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) Status: Acute (13) Adrenal insufficiency Status: Chronic (14) Urinary retention Status: Acute Discharge Summary Discharge Physical Exam Allergies: Coded Allergies: No Known Drug Allergies (Unverified , 09/23/18) Vitals & I&Os Vital Signs Date Time Temp Pulse Resp B/P (MAP) Pulse Ox O2 Delivery O2 Flow Rate FiO2 09/30/18 10:14 90 Room Air 09/30/18 07:56 98.1 85 20 152/89 (110) 09/25/18 08:00 0.00 General Appearance: No Apparent Distress, WD/WN, Chronically ill Respiratory: Chest Non Tender, Lungs Clear, Normal Breath Sounds, No Accessory Muscle Use, No Respiratory Distress Cardiovascular: Regular Rate, Rhythm, No Edema, No Gallop, No JVD, No Murmur, Normal Peripheral Pulses Neurologic/Psychiatric: Alert, Oriented x3, No Motor/Sensory Deficits, Depressed Affect Hospital Course Hospital course: Patient was admitted for altered mental status found to have severe hyponatremia following chemotherapy initiation for amyloidosis. He had been seen at [facility] and [facility]. Patient was placed on supportive care fluid restriction and monitor closely. Patient had a very lengthy hospital course which was delayed in discharge due to refractory and severe nausea and vomiting patient was found to have a fecal impaction which aggressive treatment along with general surgery consultation was initiated that was still in the midst of resolution at day of discharge to swing bed status. Overall patient has a poor prognosis and could not even tolerate chemotherapy at this time for amyloidosis until he is stable and clinically strong enough. spoke with [facility] they agreed with the plan and supportive care to strengthen and optimize clinical status prior to receiving any additional chemotherapy. Labs (last 24 hrs) Laboratory Tests 09/30/18 05:25: White Blood Count 8.5, Red Blood Count 3.03L, Hemoglobin 9.8L, Hematocrit 28L, Mean Corpuscular Volume 92, Mean Corpuscular Hemoglobin 32, Mean Corpuscular Hemoglobin Concent 35, Red Cell Distribution Width 13.5, Platelet Count 130, Mean Platelet Volume 11.9H, Neutrophils (%) (Auto) 91H, Lymphocytes (%) (Auto) 3L, Monocytes (%) (Auto) 5, Eosinophils (%) (Auto) 0, Basophils (%) (Auto) 0, Neutrophils # (Auto) 7.8, Lymphocytes # (Auto) 0.3L, Monocytes # (Auto) 0.5, Eosinophils # (Auto) 0.0, Basophils # (Auto) 0.0, Sodium Level 130L, Potassium Level 3.8, Chloride Level 98, Carbon Dioxide Level 24, Anion Gap 8, Blood Urea Nitrogen 27H, Creatinine 0.94, Estimat Glomerular Filtration Rate > 60, BUN/ Creatinine Ratio 29, Glucose Level 72, Calcium Level 8.5, Corrected Calcium 9.5 , Total Bilirubin 0.8, Aspartate Amino Transf (AST/SGOT) 42H, Alanine Aminotransferase (ALT/SGPT) 25, Alkaline Phosphatase 51, Total Protein 3.9L, Albumin 2.8L Microbiology 09/21/18 Blood Culture - Final, Complete No growth 09/23/18 Gram Stain - Final, Complete 09/23/18 Body Fluid Culture - Final, Complete No growth 09/20/18 MRSA Screen - Final, Complete MRSA not isolated Patient resulted labs reviewed. Pending Labs Laboratory Tests 09/30/18 05:25: White Blood Count 8.5, Red Blood Count 3.03, Hemoglobin 9.8, Hematocrit 28, Mean Corpuscular Volume 92, Mean Corpuscular Hemoglobin 32, Mean Corpuscular Hemoglobin Concent 35, Red Cell Distribution Width 13.5, Platelet Count 130, Mean Platelet Volume 11.9, Neutrophils (%) (Auto) 91, Lymphocytes (%) (Auto) 3, Monocytes (%) (Auto) 5, Eosinophils (%) (Auto) 0, Basophils (%) (Auto) 0, Neutrophils # (Auto) 7.8, Lymphocytes # (Auto) 0.3, Monocytes # (Auto) 0.5, Eosinophils # (Auto) 0.0, Basophils # (Auto) 0.0, Sodium Level 130, Potassium Level 3.8, Chloride Level 98, Carbon Dioxide Level 24, Anion Gap 8, Blood Urea Nitrogen 27, Creatinine 0.94, Estimat Glomerular Filtration Rate > 60, BUN/ Creatinine Ratio 29, Glucose Level 72, Calcium Level 8.5, Corrected Calcium 9.5 , Total Bilirubin 0.8, Aspartate Amino Transf (AST/SGOT) 42, Alanine Aminotransferase (ALT/SGPT) 25, Alkaline Phosphatase 51, Total Protein 3.9, Albumin 2.8 Imaging: Reviewed Imaging Report Discussion & Recommendations Discharge Planning: <30 minutes discharge planning Discharge Home Medications: Active Scripts Active Reported [Eye Injection] INJ EVERY 2 MONTHS Dexamethasone 4 Mg Tablet 40 Mg PO UD TAKES 10 (4MG) TABLETS ON DAYS 1,8,15, AND 22 OF CHEMO TREATMENT Cyclophosphamide 50 Mg Capsule 550 Mg PO UD TAKES 11 (50MG) CAPSULES ON DAYS 1,8,15 AND 22 OF CHEMO TREATMENT Preservision Areds 2 Softgel (Vit C/E/Zn/Coppr/Lutein/Zeaxan) 1 Each Capsule 1 Cap PO BID Vitamin D2 (Ergocalciferol (Vitamin D2)) 50,000 Unit Capsule 50,000 Units PO TUTH Rosuvastatin Calcium 10 Mg Tablet 20 Mg PO HS TAKES 2 (10MG) TABLETS Hydrocortisone 10 Mg Tablet 10 Mg PO HS Hydrocortisone 10 Mg Tablet 20 Mg PO DAILY TAKES 2 (10MG) TABLETS Doxycycline Hyclate 100 Mg Tablet 100 Mg PO BID Ondansetron HCl 8 Mg Tablet 8 Mg PO Q8H PRN Acyclovir 400 Mg Tablet 400 Mg PO BID Zolpidem Tartrate 5 Mg Tablet 5 Mg PO HS Furosemide 40 Mg Tablet 40 Mg PO DAILY Instructions to patient/family Please see electronic discharge instructions given to patient. Clinical Quality Measures DVT/VTE Risk/Contraindication: Risk Factor Score Per Nursin RFS Level Per Nursing on Admit: 4+=Very High Problem Qualifiers (1) Amyloidosis: Amyloidosis type: unspecified amyloidosis Qualified Codes: E85.9 - Amyloidosis, unspecified SHOBHA GATICA DO Sep 30, 2018 09:58
[2018-09-30] MEDS: HYDROCORTISONE 20 MG (CORTEF) TAB PO SCH (10:01)
[2018-09-30] MEDS: POLYETHYLENE GLYCOL 17 GM (MIRALAX) PACK PO SCH (10:01)
[2018-09-30] MEDS: BISACODYL 10 MG SUPP (DULCOLAX) PR SCH (10:02)
[2018-09-30] MEDS: ACYCLOVIR 400 MG TABLET (ZOVIRAX) PO SCH (10:02)
== END 2018-09-30 11:17 | disposition swing bed (61) | DRG 643 ==
LOC: EDUNIT# 06:35 → ER 06:37 → 4TH 08:10 → ICU 09-20 10:56 → 4TH 09-25 09:00
PROVIDERS: ADMIT Family Medicine; ATTEND Internal Medicine
PROC: 0W993ZZ Drainage of Right Pleural Cavity, Percutaneous Approach (ICD-10-PCS; principal; 2018-09-23)
DX: E22.2 Syndrome of inappropriate secretion of antidiuretic hormone (principal); J18.9 Pneumonia, unspecified organism; F05 Delirium due to known physiological condition; E85.81 Light chain (AL) amyloidosis; R44.0 Auditory hallucinations; J81.1 Chronic pulmonary edema; J90 Pleural effusion, not elsewhere classified; E27.40 Unspecified adrenocortical insufficiency; I50.30 Unspecified diastolic (congestive) heart failure; E44.0 Moderate protein-calorie malnutrition; D64.9 Anemia, unspecified; I25.10 Atherosclerotic heart disease of native coronary artery without angina pectoris; I11.0 Hypertensive heart disease with heart failure; E78.00 Pure hypercholesterolemia, unspecified; K56.41 Fecal impaction; E83.42 Hypomagnesemia; G47.00 Insomnia, unspecified; R11.2 Nausea with vomiting, unspecified; I95.1 Orthostatic hypotension; R30.0 Dysuria; R33.9 Retention of urine, unspecified; R53.1 Weakness; N50.89 Other specified disorders of the male genital organs; E88.09 Other disorders of plasma-protein metabolism, not elsewhere classified; Z95.1 Presence of aortocoronary bypass graft; Z92.21 Personal history of antineoplastic chemotherapy
CPT/HCPCS: 36415; 36569; 70450; 71045; 71260; 74018; 74019; 76937; 80048; 80053; 80202; 81000; 82040; 82150; 82945; 82962; 83605; 83615; 83690; 83735; 83880; 83986; 84100; 84153; 84157; 84478; 84484; 85007; 85025; 85027; 87040; 87070; 87081; 87205; 88112; 88305; 89051; 93005; 93041; 93306; 94640; 94760; 96361; 96365

== ENCOUNTER 2018-09-29 13:47 | Inpatient (IN) | payer MEDICARE, OTHER ==
[~2018-09-29] VITALS: Ht 177.8 cm; Wt 100.0 kg
[~2018-09-29 13:47] MED LIST changes: +ACYC400T PO; +CYCL50CA3 PO; +DEXA4TAB PO; +DOXY100T2 PO; +ERGO50006 PO; +EYE INJECTION INJ; +FURO40TA4 PO; +HYDR10TA13 PO; +ONDA8TAB12 PO; +ROSU10TA27 PO; +VIT1CAPS44 PO; +ZOLP5TAB7 PO
[2018-09-30] MEDS ORDERED: MILK OF MAGNESIA 400 MG/5 ML 30 ML UDC PO PRN (11:30)
[2018-09-30] MEDS ORDERED: SALINE NASAL SPRAY (OCEAN) 45 ML BTL PRN (11:30)
[2018-09-30] MEDS ORDERED: MINERAL OIL ENEMA 133 ML BTL PR PRN (11:30)
[2018-09-30] MEDS ORDERED: HYDROcodone/APAP 5 MG/325 MG (LORTAB) TAB PO PRN (11:30)
[2018-09-30] MEDS ORDERED: PROMETHAZINE INJ 25 MG/ML (PHENERGAN) AMP IVP PRN (11:30)
[2018-09-30] MEDS ORDERED: RT-ALBUTEROL/IPRATROPIUM 3 ML (DUONEB) VIAL INH PRN (11:30)
[2018-09-30] MEDS ORDERED: IBUPROFEN TABLET 200 MG TAB PO PRN (11:30)
[2018-09-30] MEDS ORDERED: ACETAMINOPHEN 325 MG TABLET PO PRN (11:30)
[2018-09-30] MEDS ORDERED: ANTACID SUSP 30 ML UDC (MYLANTA) PO PRN (11:30)
[2018-09-30] MEDS ORDERED: CATHETER FLUSH 10 ML SYR IV PRN (11:30)
[2018-09-30] MEDS ORDERED: ONDANSETRON 4 MG/2 ML (SDV) Z0FRAN IVP PRN (11:30)
[2018-09-30] MEDS ORDERED: MELATONIN 3 MG TABLET PO PRN (11:30)
[2018-09-30] MEDS ORDERED: POLYETHYLENE GLYCOL 17 GM (MIRALAX) PACK PO PRN (12:00)
[2018-09-30] MEDS: ENOXAPARIN 40 MG/0.4 ML (LOVENOX) SYR SC SCH (12:30)
--- NOTE | 2018-09-30 13:05 | Physical Therapy Progress Note ---
Therapy Progress Note PT attempted to evaluate patient, however, spouse declined at this time. Will attempt later today. 1 ref ([id number]) RUDDY BARRIENTOS PT Sep 30, 2018 13:05
--- OUTSIDE RECORDS SUMMARY | 2018-09-30 13:15 | XMS REPORT | Clinical Summary ---
Author Author [facility] Organization [facility] Address Unknown Phone Unavailable Care Team Providers Care Clinic Office Manager Name Role Phone Sae Gu MD [...] in the Health Information Management department at [phone] for further assistance in locating additional records.[facility] Allergies No Known Allergies Current Medications [...] 81 mg by mouth Active daily. Vit A,C,G-Yeed-Ftnbsf Take 1 capsule by mouth Active (ICAPS AREDS) daily. 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[place] Dunn APRN-HARNESS RACING HANDICAPPER type (HCC) (Primary Dx); Multiple myeloma, remission [...] Neurology Nikita Armijo MD General Question 07/11/2018 Hospital Lab Albino Terrazas, Other proteinuria Encounter 07/08/2018 Telephone Cardiology Fior Thomas RN Follow-up Phone Call 07/08/2018 Pharmacy Visit 07/07/2018 [facility] Sae Gu III, Proteinuria - Encounter MD 07/08/2018 Zahraa Casas MD Kelly, Brendan S, Serena Hays RN Barger, Stephanie, RT(R)(),LRT Juancho Cartwright MD 07/07/2018 Anesthesia Radiology NahomiAlyssa hamilton, BRUNO Event from Last 3 Months Family History Medical [...] procedure are in the TEST results section. [facility] SESAY TEST 08/08/2018 Amyloidosis (HCC) Results for this 5:03 PM CDT procedure are in the results section. BONE MARROW 08/08/2018 Results for this 5:03 PM CDT procedure are in the results section. [facility] SESAY TEST Routine 08/08/2018 Results for this 4:30 PM CDT procedure are in the results section. [facility] ARUP TEST Routine 08/08/2018 Results for this 4:30 PM CDT procedure are in the results section. [facility] REFERENCE TEST Routine 08/08/2018 Amyloidosis, unspecified Results for this 4:30 PM CDT type (HCC) procedure are in the results section. [facility] REFERENCE TEST Routine 08/08/2018 Amyloidosis, unspecified Results [...] myeloma, results section. remission status unspecified (HCC) MISC SESAY TEST 07/11/2018 Results for this 3:35 PM CDT procedure are in the results section. MISCELLANEOUS SURGICAL 07/11/2018 Other proteinuria Results for this PATHOLOGY REFERENCE LAB 3:35 PM CDT procedure are in the TEST results section. TELEMETRY STRIPS-SCAN 07/11/2018 Results for [...] CDT procedure are in the results section. [facility] Rout[facility] 07/07/2018 Results for this [...] REFERENCE LAB SPECTROMETRY Reference Lab PERFORMED AT [facility] REFERENCE LAB LABORATORIES Results Ref Lab SEE [facility] TEST REFERENCE LAB Specimen Mail TISSUE, THIERNO, [id number] A1 REFERENCE LAB Performing Organization Address City/State/Zipcode Phone Number REFERENCE LAB REFERENCE LAB See results for address. * BONE MARROW (08/08/2018 5:03 PM) PATHOLOGY REPORT [facility] [email or web address] Department of Pathology and Laboratory Medicine [address] [place] [address] Surgical Pathology Office:[phone] :[phone] SURGICAL PATHOLOGY REPORT NAME: NEGRITA MOORE SURG PATH #: [id number] MR #: [id number] ALT ID #: LOCATION: [facility] DATE OF PROCEDURE: 08/08/2018 AGE:77 SEX: [...] submitted in cassette B1 after decalcification. (lmt) lt/08/08/2018 Microscopic Description: CBC Data:HGB 13.5 (g/dL); RBC [...] of Pathology and Laboratory Medicine of the [facility] ([employer]) in compliance with [...] of Pathology and Laboratory Medicine of the [facility].It has not been cleared or approved by the FDA.The FDA has determined that such clearance or approval is not necessary. Performing Organization Address City/State/Zipcode Phone Number KU LAB RESULTS * [facility] TEST (08/08/2018 5:03 PM) Only the most recent of 4 results within the time period is included. 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 A [...] the Department of Laboratory Medicine and Pathology, [facility] at . Report electronically signed by Shakeel Haynes M.D. Material Received A. [id number]: Kidney, campo 1 block Disclaimer This test was developed and its performance characteristics determined by [facility] in a manner consistent with CLIA requirements. This test has not been cleared or approved by the U.S. Food and Drug Administration. Test Performed by: [place] [address] Performing Organization Address City/[facility] Phone Number REFERENCE LAB REFERENCE LAB See results for address. * [facility] ARUP TEST (08/08/2018 4:30 PM) Ref Lab Test Code [id number], Troponin T REFERENCE LAB REF LAB RESULT (MSAR) SEE NOTE REFERENCE LAB Test name Result Flag UnitsRefIntvl - Troponin-T 0.04 H ng/mL <=0.01 Performed by [facility], [address] [place] [id number] [email or web address], Loi Wang MD, Lab. Director Performing Organization Address City/[facility] Cent[facility] Phone Number REFERENCE LAB REFERENCE LAB See results for address. * [facility] REFERENCE TEST (08/08/2018 4:30 PM) Only the most recent of 3 results within the time period is included. Test Troponin T REFERENCE LAB Reference Lab PERFORMED AT [facility] REFERENCE LAB LABORATORY-FOR REF RANGE SEE REPORT. Results Ref Lab SEE REF LAB RESULT REFERENCE LAB Specimen Mail SERUM REFERENCE LAB Performing Organization Address City/[facility] Centercode Phone Number REFERENCE LAB REFERENCE LAB See results for address. * IMMUNOFIXATION, SERUM (IFES) (08/08/2018 4:30 PM) Immuno Fix-Serum NO PARAPROTEIN SEEN MAIN LAB Pathologist Signature INTERPRETED BY LUCERO RANGEL M.D. [facility] By the PATH SIGNATURE ABOVE, I attest that I have personally formulated the final interpretation expressed in this report and that the above diagnosis is based upon my examination of the slides and/or other material indicated in this report. Specimen Blood Performing Organization Address [facility] Centercova Phone Number [facility] [address] [place] [address] * KAPPA/LAMBDA FREE LIGHT CHAINS (08/08/2018 4:30 PM) Thunderbolt, FLC 1.20 0.33 - 1.94 MG/DL MAIN LAB Comment: Freelite results should always be interpreted in conjunction with other laboratory tests and clinical evidence.The possibility of Antigen Excess exists and can cause Immunoassays to under estimate very high concentrations of antigen. Any discordant results should be discussed with Dr. Montaño. Lambda, FLC 4.03 (H) 0.57 - 2.63 MG/DL [facility] Thunderbolt/Lambda FLC 0.30 0.26 - 1.65 MAIN LAB Specimen Blood Performing Organization Address [facility] Phone Number [facility] [address] [place] [address] * PTT (APTT) (08/08/2018 4:30 PM) APTT 28.9Comment: NOTE NEW 20.0 - 36.0 SEC [facility] REFERENCE RANGES Specimen Blood Performing Organization Address [facility] Centercode Phone Number [facility] [address] [place] [address] * PROTIME INR (PT) (08/08/2018 4:30 PM) Only the most recent of 2 results within the time period is included. INR 0.9 0.8 - 1.2 MAIN LAB Specimen Blood Performing Organization Address [facility]/Zipcode Phone Number [facility] [address] [place] [address] * CBC AND DIFF (08/08/2018 4:30 PM) White Blood Cells 7.0 4.5 - 11.0 K/UL [facility] RBC 4.18 (L) 4.4 - 5.5 M/UL [facility] Hemoglobin 13.5 13.5 - 16.5 GM/DL K[facility] LAB Hematocrit 39.5 (L) 40 - 50 % [facility] MCV 94.4 80 - 100 FL [...] Morph NORMAL KU LAB Platelet Estimate NORMAL [facility] Absolute Neutrophil Count 5.88 1.8 - 7.0 K/UL [facility] Manual Specimen Blood Performing Organization Address [facility] Centercode Phone Number [facility] [address] [place] [address] * IMMUNOGLOBULINS-IGA,IGG,IGM (08/08/2018 4:30 PM) IgG 277 (L) 762 - 1,488 MG/DL [facility] IgA 46 (L) 70 - 390 MG/DL [facility] IgM 31 (L) 38 - 328 MG/DL [facility] Specimen Blood Performing Organization Address City/[facility]/Zipcode Phone Number [facility] [address] [place] [address] * ELECTROPHORESIS-SERUM PROTEIN (08/08/2018 4:30 PM) Total Protein-SEP 4.0 (L) 6.0 - 8.0 G/DL KU MAIN LAB Albumin % 55.7 48 - 68 % [facility] MAIN LAB Alpha 1 % 6.0 2 - 6 % [facility] MAIN LAB Alpha 2 % 19.8 (H) 5 - 15 % [facility] MAIN LAB Beta %,Serum 11.4 9 - 17 % [facility] Gamma % 7.1 (L) 9 - 21 % [facility] Interpretation - SEP HYPOALBUMINEMIA [facility] HYPOGAMMAGLOBULINEMIA Pathologist Signature INTERPRETED BY LUCERO RANGEL M.D. [facility] By the PATH SIGNATURE ABOVE, I attest that I have personally formulated the final interpretation expressed in this report and that the above diagnosis is based upon my examination of the slides and/or other material indicated in this report. Specimen Blood Performing Organization Address [facility] Centercode Phone Number [facility] [address] [place] [address] * BNP (B-TYPE NATRIURETIC PEPTI) (08/08/2018 4:30 PM) B Type Natriuretic 611.0 (H) 0 - 100 PG/ML [facility] Peptide Specimen Blood Performing Organization Address [facility] Centerc[facility] Phone Number [facility] [address] [place] [address] * LDH-LACTATE DEHYDROGENASE (08/08/2018 4:30 PM) Lactate Dehydrogenase 234 (H) 100 - 210 U/L [facility] Specimen Blood Performing Organization Address [facility] Centerc[facility] Phone Number [facility] [address] [place] [address] * BETA 2 MICROGLOBULIN (08/08/2018 4:30 PM) B2 Microglobulin 1.9 0.8 - 2.3 MG/L [facility] Specimen Blood Performing Organization Address [facility] Cent[facility] Phone Number [facility] [address] [place] [address] * COMPREHENSIVE METABOLIC PANEL (08/08/2018 4:30 PM) Only the most recent of 2 results within the time period is included. Sodium 126 (L) 137 - 147 MMOL/L [facility] Potassium 4.1 3.5 - 5.1 MMOL/L [facility] Chloride 95 (L) 98 - 110 MMOL/L [facility] Glucose 105 (H) 70 - 100 MG/DL [facility] Blood Urea Nitrogen 9 7 - 25 MG/DL [facility] Creatinine 0.77 0.4 - 1.24 MG/DL [...] [facility] eGFR Non >60 >60 mL/min [facility] Comment: The [...] Blood Performing Organization Address City/State/Zipcode Phone Number [facility] [address] [id number] * FLOW CYTOMETRY (08/08/2018 3:43 PM) PATHOLOGY REPORT [facility] [email or web address] Aric Broussard MD, Director of Flow Cytometry Laboratory Department of Pathology and Laboratory Medicine [address] [place] [address] Surgical Pathology Office:[phone] :[phone] FLOW CYTOMETRY REPORT NAME: NEGRITA MOORE SURG PATH #: [id number] MR #: [id number] SPECIMEN CLASS: LC BILLING #: [id number] ALT ID #:LOCATION: [facility] DATE OF PROCEDURE: 08/08/2018 AGE:77 SEX: [...] in this report. +++Electronically Signed Out By+++ btp/08/08/2018 Interpreted by: Flaco Zhao MD 08/09/2018 ############################## ############################## ############ Lab Data: Flow Cytometry - Multiple Myeloma, Minimal Residual Disease Panel Analytic sensitivity of the lower detection limit in this assay is 0.01% Plasma Cell Associated Markers (% Positive Cells): YD29=633; IK562=979; cyKappa=5; cyLambda=93; cyK/cyL ratio=0.1 Miscellaneous Markers (% Positive Cells): CD19=5; CD20=44; CD27=35; CD28=2; CD45=93; CD56=3; CD81=69; BA459=03 Cell Viability (%):n/a Number of Cells Analyzed:1,103,218 Plasma Cells Detected:1.66 Total Number of Markers:15 Summary of Marker Combinations: 81/28/138/38/45/27/20; cyKappa/cyLambda/138/117/38/45 /56/19 This test was developed and its performance characteristics determined by the [facility] Flow Cytometry Laboratory.It has not been cleared or approved by the U.S. Food and Drug Administration (FDA).The FDA has determined that such clearance or approval is not necessary. Performing Organization Address City/[facility]/Zipcode Phone Number LAB RESULTS * LEUKEMIA/LYMPHOMA PNL, BONE MARROW (08/08/2018 3:43 PM) Leuk/Lymph Interpretation SEE PATHOLOGY REPORT MAIN LAB Specimen/LLM BONE MARROW MAIN LAB Specimen Bone Marrow - Bone Marrow Performing Organization Address City/[facility] Centercode Phone Number MAIN LAB [address] [place] [address] * CHROMOSOMES FISH DNA PROBE (08/08/2018 3:43 PM) Chromosomes Fish DNA SEE RETAIL SALES CONSULTANT FOR REPORT MAIN LAB Probe Specimen Bone Marrow Performing Organization Address [facility] Centercode Phone Number MAIN LAB [address] [place] [address] * CHROMOSOMES BONE MARROW (08/08/2018 3:43 PM) Chromosomes Bone Marrow SEE RETAIL SALES CONSULTANT FOR REPORT MAIN LAB Specimen Bone Marrow Performing Organization Address City/[facility] Mex[facility] Phone Number MAIN LAB [address] [place] [address] * FE STAIN (08/08/2018 3:43 PM) Bone Marrow FE SEE PATHOLOGY REPORT MAIN LAB Specimen Bone Marrow - Bone Marrow Performing Organization Address City/[facility] Centercode Phone Number MAIN LAB [address] [place] [address] * BONE MARROW ASP (08/08/2018 3:43 PM) Bone Marrow Asp SEE PATHOLOGY REPORT MAIN LAB Specimen Bone Marrow - Bone Marrow Performing Organization Address City/[facility] Centercode Phone Number MAIN LAB [address] [place] [address] * BONE MARROW BIOPSY (08/08/2018 3:43 PM) Bone Marrow Bx SEE PATHOLOGY REPORT MAIN LAB Specimen Bone Marrow - Bone Marrow Performing Organization Address City/[facility]/Zipcode Phone Number MAIN LAB [address] [place] [address] * METASTATIC SKELETAL SURVEY (08/08/2018 3:06 PM) [...] Red stain. Complications: None.Patient tolerated procedure well. [place] Dunn APRN-HARNESS RACING HANDICAPPER Performing Organization Address City/[facility]/Zipcode Phone Number OTHER OUTSIDE LAB * TELEMETRY STRIPS-SCAN (07/11/2018 9:57 AM) Narrative Performed At Ordered by an unspecified provider. * CBC (07/08/2018 5:26 AM) Only the most recent of 2 results within the time period is included. White Blood Cells 6.9 4.5 - 11.0 K/UL [facility] RBC 3.95 (L) 4.4 - 5.5 M/UL [facility] Hemoglobin 12.7 (L) 13.5 - 16.5 GM/DL [facility] Hematocrit 37.1 (L) 40 - 50 % [facility] MCV 94.0 80 - 100 FL [facility] MCH 32.2 26 - 34 PG [facility] MCHC 34.2 32.0 - 36.0 G/DL [facility] RDW 14.3 11 - 15 % [facility] Platelet Count 211 150 - 400 K/UL [facility] MPV 9.2 7 - 11 FL MAIN LAB Specimen Blood Performing Organization Address City/[facility] Centercode Phone Number MAIN LAB [address] [place] [address] * MAGNESIUM (07/08/2018 5:26 AM) Magnesium 1.7 1.6 - 2.6 mg/dL MAIN LAB Specimen Blood Performing Organization Address City/[facility] Centercode Phone Number [facility] [address] [place] [address] * SURGICAL PATHOLOGY (07/07/2018 2:03 PM) PATHOLOGY REPORT [facility] [email or web address] Department of Pathology and Laboratory Medicine [address] [place] [address] Surgical Pathology Office:[phone] :[phone] SURGICAL PATHOLOGY REPORT NAME: NEGRITA MOORE SURG PATH #: [id number] MR #: [id number] SPECIMEN CLASS: SR BILLING #: [id number] ALT ID #:LOCATION: [id number] DATE OF PROCEDURE: 07/07/2018 AGE:77 SEX: M DATE RECEIVED: 07/07/2018 : 1940TIME RECEIVED: 14:03 PHYSICIAN: JAS PARRA MD DATE OF REPORT: 07/20/2018 COPY TO:DATE OF PRINTIN07/20/2018 ############################## ############################## ############ Final Diagnosis: A, B and C. Kidney (campo), core needle biopsy: Amyloidosis. Attestation: By this signature, I attest that I have personally formulated the final interpretation expressed in this report and that the above diagnosis is based upon my examination of the slides and/or other material indicated in this report. +++ +++ dew/07/08/2018 ############################## ############################## ############ Material Received: A: [place] Kidney with Protocol B: Immunofluorescence (Moira)-[place] [facility] C: Electron microscopy (glutaraldehyde)-campo ( mailed out to [facility] for processing) History: 77-year-old male with [...] and its performance characteristics determined by the [facility] pathology laboratory. It has not been [...] Description: A. Received in formalin labeled "left campo renal biopsy" is a 1.1 cm in length by 0.1 in diameter core of lombardo-red tissue . The specimen is submitted entirely in cassette A1. (ab) B. Received in Renan's solution labeled "left campo renal biopsy-IF" is a 0.9 x 0.1 x 0.1 cm core of lombardo-red tissue. The specimen is submitted entirely for immunofluorescence studies.(ab) C. Received in saline and transferred to formalin labeled "left campo renal biopsy-EM" is a 0.8 x 0.1 x 0.1 cm core of lombardo-red tissue. The specimen is submitted entirely in sent to [facility] for electron microscopy studies.(ab) ab/07/07/2018 If immunohistochemical stains and/or in situ hybridization are cited in this report, the performance characteristics were determined by the Department of Pathology and Laboratory Medicine of the [facility] ([employer]) in compliance with CLIA'88 regulations.Some [...] of Pathology and Laboratory Medicine of the [facility].It has not been cleared or approved [...] PM. Narrative Performed At Ultrasound Guided Percutaneous [place] Kid[facility] Biopsy [facility] RESULTS INDICATION:Renal failure DRYWALL MECHANIC:Nathan Soler M.D. DEVICE:18g biopsy gun through 17g needle guide [id number] gauge cores COMPLICATIONS:None immediate TECHNIQUE: The risks, [...] 07/11/2018 4:29 PM CDT Ultrasound Guided Percutaneous [place] [facility] Biopsy INDICATION: Renal failure DRYWALL MECHANIC: Nathan Soler M.D. DEVICE: 18g biopsy gun [...]
--- OUTSIDE RECORDS SUMMARY | 2018-09-30 13:16 | XMS REPORT | Encounter Summary ---
Author Author [facility] Organization [facility] Address Unknown Phone Unavailable Care Team Providers Care Conveyor Loader Name Role Phone Sae Gu MD PCP Sae Allen MD Unavailable Luisa Call DO Unavailable Nikita Armijo MD Unavailable Isai Parra MD Unavailable Shameka Ashton MD Unavailable Salvador Markham MD 3 Salvador Markham MD Unavailable Encounter Details Date Type Department Care Team Description 08/29/2018 Documentation [facility] Nikita Armijo MD Physicians-Neurology [address] [facility] [place] [address] [address] [facility] [phone] [place] [address] Social History Tobacco Use Types Packs/Day Years Used Date Never Smoker Smokeless Tobacco: Never Used Alcohol Use Drinks/Week oz/Week Comments Yes Very Rare Sex Assigned at Date Recorded Not on file as of this encounter Progress Notes * Alyssa Augustin LPN - 08/29/2018 4:24 PM CDT Patient went to [facility] for evaluation, whom has confirmed diagnosis and recommended patient cancel tilt table testing, so they will not be going through with this procedure. Patient has requested [place] send records to Dr. Armijo. Confirmed f/u appt. in this encounter Plan of Treatment Not on fileas of this encounter Visit Diagnoses Not on filein this encounter
--- OUTSIDE RECORDS SUMMARY | 2018-09-30 13:16 | XMS REPORT | Encounter Summary ---
Author Author [facility] Organization [facility] Address Unknown Phone Unavailable Care Team Providers Care Student Nurse Name Role Phone Sae Gu MD PCP Sae Allen MD Unavailable Luisa Call DO Unavailable Nikita Armijo MD Unavailable Isai Parra MD Unavailable Shameka Ashton MD Unavailable Salvador Markham MD 3 Salvador Markham MD Unavailable Reason for Visit * Reason Comments Records Request Encounter Details Date Type Department Care Team Description 08/19/2018 Telephone [facility] MEDICAL RECORDS Destiny Quiros Records Request [address] [place] [address] Social History Tobacco Use Types Packs/Day Years [...] O2 and also Dr Sae Allen at [facility] in [place] in this encounter Plan of Treatment Not on fileas of this encounter Visit Diagnoses Not on filein this encounter
--- OUTSIDE RECORDS SUMMARY | 2018-09-30 13:16 | XMS REPORT | Encounter Summary ---
Author Author [facility] Organization [facility] Address Unknown Phone Unavailable Care Team Providers Care Accounts Receivable Specialist Name Role Phone Sae Gu MD PCP Sae Allen MD Unavailable Luisa Call DO Unavailable Nikita Armijo MD Unavailable Isai Parra MD Unavailable Shameka Ashton MD Unavailable Salvador Markham MD 3 Salvador Markham MD Unavailable Reason for Visit * Reason Comments Care Coordination Encounter Details Date Type Department Care Team Description 09/28/2018 Telephone [facility] Angella Rincon MD Care Coordination Cancer Center - WW Exam [address] [place] [address] 26[address] [facility] [phone] [place] [address] [phone] Social History Tobacco Use Types Packs/Day Years Used Date Never Smoker Smokeless Tobacco: Never Used Alcohol Use Drinks/Week oz/Week Comments Yes Very Rare Sex Assigned at Date Recorded Not on file as of this encounter Miscellaneous Notes * Telephone Encounter - Mary Gallego RN - 09/28/2018 10:06 AM REINFORCING IRON WORKER HELPER Per Cammie, nurse for Dr Markham, notification that patient Keo Whitt remains in the hospital at this time and inpatient services will be discussing a potential transfer of care to per pt request and they will be reaching out to inpatient team. Will keep our office updated. in this encounter Plan of Treatment Not on fileas of this encounter Visit Diagnoses Not on filein this encounter
--- OUTSIDE RECORDS SUMMARY | 2018-09-30 13:16 | XMS REPORT | Encounter Summary ---
Author Author [facility] Organization [facility] Address Unknown Phone Unavailable Care Team Providers Care Supervisor Metal Hanging Name Role Phone Sae Gu MD PCP Sea Allen MD Unavailable Luisa Call DO Unavailable Nikita Armijo MD Unavailable Isai Parra MD Unavailable Shameka Ashton MD Unavailable Salvador Markham MD 3 Salvador Markham MD Unavailable Reason for Visit * Reason Comments Hallucinations Fall Encounter Details Date Type Department Care Team Description 09/19/2018 Telephone [facility] Angella Rincon MD Hallucinations; [facility] Cancer [facility] - WW Exam [address] [place] [address] 2650 [facility] [phone] [place], [place] [phone] Social History Tobacco Use Types Packs/Day Years Used Date Never Smoker Smokeless Tobacco: Never Used Alcohol Use Drinks/Week oz/Week Comments Yes Very Rare Sex Assigned at Date Recorded Not on file as of this encounter Miscellaneous Notes * Telephone Encounter - Mary Gallego RN - 09/19/2018 9:01 AM CANDY SUPERVISOR Voicemail had been left after hours on Wednesday from stating that patient was having multiple falls and hallucinations at home. Upon callback Wednesday AM, reports they had gone to [facility] and sodium in the low 110's. reports they are updating Dr Markham's office (their local oncologist) as well. Update provided to Dr Rincon.Per Dr Rincon, to see patient this week to discuss change of treatment plan. reports understanding and appointment set for at 2 pm- reports pt has been admitted and will be in [facility] until at least Wednesday this week. Pt's also given urgent triage line phone number for after hours usage in the event they have an urgent triage situation arise in the future after hours. reports having that number and that they would utilize in event an urgent triage need occurs over the weekend. states will continue to keep our office updated. Louisa from Dr Markham's office notified of all the above as well and states she will report the above to Dr Markham and his covering provider as he is not in office until Wednesday. in this encounter Plan of Treatment Not on fileas of this encounter Visit Diagnoses Not on filein this encounter
--- OUTSIDE RECORDS SUMMARY | 2018-09-30 13:16 | XMS REPORT | Encounter Summary ---
Author Author [facility] Organization [facility] Address Unknown Phone Unavailable Care Team Providers Care Director Maternal Child Name Role Phone Sae Gu MD PCP Sae Allen MD Unavailable Luisa Call DO Unavailable Nikita Armijo MD Unavailable Isai Parra MD Unavailable Shmaeka Ashton MD Unavailable Salvador Markham MD 3 Salvador Markham MD Unavailable Encounter Details Date Type Department Care Team Description 09/05/2018 Documentation [facility] Nikita Armijo MD Physicians-Neurology [address] [facility] [place] [address] [address] [facility] [phone] [place] [address] Social History Tobacco Use Types Packs/Day Years Used Date Never Smoker Smokeless Tobacco: Never Used Alcohol Use Drinks/Week oz/Week Comments Yes Very Rare Sex Assigned at Date Recorded Not on file as of this encounter Progress Notes * Anca Garcia, RN - 09/05/2018 2:21 PM CDT Received [facility] faxed records, will give to MR to upload into system. in this encounter Plan of Treatment Not on fileas of this encounter Visit Diagnoses Not on filein this encounter
--- OUTSIDE RECORDS SUMMARY | 2018-09-30 13:16 | XMS REPORT | Encounter Summary ---
Author Author [facility] Organization [facility] Address Unknown Phone Unavailable Care Team Providers Care Sql Engineer Name Role Phone Sae Gu MD PCP Sae Allen MD Unavailable Luisa Call DO Unavailable Nikita Armijo MD Unavailable Isai Parra MD Unavailable Shameka Ashton MD Unavailable Salvador Markham MD 3 Reason for Visit * Reason Comments Test Encounter Details Date Type Department Care Team Description 08/09/2018 Telephone [facility] Angella Rincon MD [facility] Cancer Center - WW Exam [address] [facility] [place] [address] [address] [facility] [phone] [place], [place] [phone] Social History Tobacco Use Types Packs/Day Years [...] is typically 3 weeks for results and [facility] will be starting the test tomorrow. Phone number to [employer] ( ) provided by Delicia for this [employer] to discuss expediting testing. Spoke with Gisel with [facility] who requested electronic order number for [...]
--- OUTSIDE RECORDS SUMMARY | 2018-09-30 13:16 | XMS REPORT | Encounter Summary ---
Author Author [facility] Organization [facility] Address Unknown Phone Unavailable Care Team Providers Care Operator Supply Name Role Phone Sae Gu MD PCP [...] Ngoc Ontiveros MD MD Required myeloma, [address] [place] [address] remission status [address] [place] [address] unspecified [place], [place] ([facility]) [address] Phone: Fax: Scheduling Instructions Please try to cluster appointments with other hospital/[place] appointments if possible. Patient lives 3 hours away. * Consult, Test & Treat (Routine) Status Reason Specialty Diagnoses / Referred By Referred To Procedures Contact Contact New Request Specialty Diagnoses Angella Rincon Morie, MD Services Ngoc Ontiveros MD [address] Required myeloma, [address] [place], [place] remission status [address] [address] unspecified [place], [place] Phone: [facility]) [address] Phone: Encounter Details Date Type Department Care Team Description 08/16/2018 Orders Only [facility] Angella Rincon MD Multiple myeloma, Cancer Center - WW Exam [address] remission [place] [address] unspecified (HCC) [address] [facility] [phone] (Primary Dx) [place] [address] [phone] Social History Tobacco Use Types Packs/Day Years [...]
--- OUTSIDE RECORDS SUMMARY | 2018-09-30 13:16 | XMS REPORT | Encounter Summary ---
Author Author [facility] Organization [facility] Address Unknown Phone Unavailable Care Team Providers Care Corporate Banking Officer Name Role Phone Sae Gu MD PCP Sae Allen MD Unavailable Luisa Call DO Unavailable Nikita Armijo MD Unavailable Isai Parra MD Unavailable Shameka Ashton MD Unavailable Salvador Markham MD 3 Salvador Markham MD Unavailable Reason for Visit * Reason Comments Other Encounter Details Date Type Department Care Team Description 09/20/2018 Telephone [facility] Angella Rincon MD Other Cancer Center - WW Exam [address] [facility] [place] [address] [address] [facility] [phone] [place], [place] [phone] Social History Tobacco Use Types Packs/Day Years Used Date Never Smoker Smokeless Tobacco: Never Used Alcohol Use Drinks/Week oz/Week Comments Yes Very Rare Sex Assigned at Date Recorded Not on file as of this encounter Miscellaneous Notes * Telephone Encounter - Heidi Nassar RN - 09/20/2018 1:21 PM HAZ TECH Patients spouse called stating that patient is still in the hospital and they are not sure about discharge plans, patient has an appointment with dr phil piña at 2 pm Spouse will call tomorrow with any updates on discharge plans. If patient is discharged on , spouse is not sure if they will make it to dr rae appt. Above information given to MILLIE Quiroga in this encounter Plan of Treatment Not on fileas of this encounter Visit Diagnoses Not on filein this encounter
--- OUTSIDE RECORDS SUMMARY | 2018-09-30 13:16 | XMS REPORT | Encounter Summary ---
Author Author [facility] Organization [facility] Address Unknown Phone Unavailable Care Team Providers Care Cardiograph Operator Name Role Phone Sae Gu MD PCP Sae Allen MD Unavailable Luisa Call DO Unavailable Nikita Armijo MD Unavailable Isai Parra MD Unavailable Shameka Ashton MD Unavailable Encounter Details Date Type Department Care Team Description 08/08/2018 Hospital [facility] Angella Rincon MD Amyloidosis, unspecified Encounter [facility] 1st fl [address] [facility] [address] ([facility]) [address] [place] [address] [place] [address] [phone] Social History Tobacco Use Types Packs/Day Years [...] by mouth 07/11/2018 mg tablet daily. Vit A,C,H-Xysd-Oknltr Take 1 capsule by mouth (ICAPS AREDS) daily. 14,320-226-200 yobo-dq-smax cap VITAMIN D 50,000 unit Take 50,000 [...] procedure are in the TEST results section. [facility] 08/08/2018 Amyloidosis (HCC) Results for this PATHOLOGY REFERENCE LAB 5:03 PM CDT procedure are in the TEST results section. [facility] TEST 08/08/2018 Amyloidosis (HCC) Results for this 5:03 PM CDT procedure are in the results section. in this encounter Results * MISCELLANEOUS SURGICAL PATHOLOGY REFERENCE LAB TEST (08/08/2018 5:03 PM) Test AMYLOID PROTEIN ID, MASS REFERENCE LAB SPECTROMETRY Reference [facility] Results Ref Lab SEE [facility] TEST REFERENCE LAB Specimen Mail TISSUE, BLOCK, [id number] A1 REFERENCE LAB Performing Organization Address City/[facility] Phone Number REFERENCE LAB REFERENCE LAB See results for address. * MISCELLANEOUS SURGICAL PATHOLOGY REFERENCE LAB TEST (08/08/2018 5:03 PM) Test AMYLOID PROTEIN ID, REFERENCE LAB MICRODISSECTION, LASER CAPTURE Reference Lab [facility] RE[facility] LAB LAB[facility] Results Ref Lab SEE [facility] TEST REFERENCE LAB Specimen Mail TISSUE, BLOCK, [id number] A1 REFERENCE LAB Performing Organization Address City/[facility] Phone Number REFERENCE LAB REFERENCE LAB See results for address. * MISCELLANEOUS SURGICAL PATHOLOGY REFERENCE LAB TEST (08/08/2018 5:03 PM) Test Amyloid Protein REFERENCE LAB Identification, Paraffin Reference Lab [facility] RE[facility] LAB[facility] Results Ref Lab SEE [facility] TEST REFERENCE LAB Specimen Mail Parrafin block REFERENCE LAB Performing Organization Address [facility] Phone Number REFERENCE LAB REFERENCE LAB See results for address. * [facility] TEST (08/08/2018 5:03 PM) [facility], Amyloid Protein ID, REFERENCE LAB Info Par, LC MS/MS [facility] Result SEE COMMENTS 08/17/2018 12:51 REFERENCE LAB PM Test ResultFlag UnitRefValue ------ Amyloid Protein ID, Par, LC MS/MS Interpretation Kidney, specimen for amyloid typing ([id number]; 07/07/2018): Involved by amyloidosis, [place] (lambda)-type. A [...] Laboratory Medicine and Pathology, [facility] ensembli at . Report electronically signed by Shakeel Haynes M.D. Material Received A. [id number]: Kidney, little shell tribe 1 block Disclaimer This test was developed and its performance characteristics determined by [facility] in a manner consistent with CLIA requirements. This test has not been cleared or approved by the U.S. Food and Drug Administration. Test Performed by: [address] [address] Performing Organization Address City/State/Zipcode Phone Number REFERENCE LAB REFERENCE LAB See results for address. in this encounter Visit Diagnoses Diagnosis Amyloidosis (HCC) Amyloidosis, unspecified Admitting Diagnoses Diagnosis Amyloidosis, unspecified (HCC) Amyloidosis, unspecified
--- OUTSIDE RECORDS SUMMARY | 2018-09-30 13:16 | XMS REPORT | Encounter Summary ---
Author Author [facility] Organization [facility] Address Unknown Phone Unavailable Care Team Providers Care Aircraft Structural Repairer Name Role Phone Sae Gu MD PCP Sae Allen MD Unavailable Luisa Call DO Unavailable Nikita Armijo MD Unavailable Isai Parra MD Unavailable Shameka Ashton MD Unavailable Salvador Markham MD 3 Salvador Markham MD Unavailable Encounter Details Date Type Department Care Team Description 08/29/2018 Documentation Cardiovascular Medicine Malaika Cloud, MILL[place] [address] [address] [place] [address] Social History Tobacco Use Types Packs/Day Years [...] tilt table test. They went to [facility] recently to consult with the head of [...]
--- OUTSIDE RECORDS SUMMARY | 2018-09-30 13:16 | XMS REPORT | Encounter Summary ---
Author Author [facility] Address Unknown Phone Unavailable Care Team Providers Care Director Of Purchasing Name Role Phone Sae Gu MD PCP Sae Allen MD Unavailable Luisa Call DO Unavailable Nikita Armijo MD Unavailable Isai Parra MD Unavailable Shameka Ashton MD Unavailable Salvador Markham MD 3 Salvador Markham MD Unavailable Reason for Visit * Reason Comments Follow Up Encounter Details Date Type Department Care Team Description 08/23/2018 Office Visit [facility] Nikita Armijo MD Neuropathy (Primary Dx); Physicians-Neurology [address] [place]) [facility] [place] [address] amyloidosis (HCC); [address] [phone] Orthostatic [place], [place] lightheadedness [address] Social History Tobacco Use [...] but he is going to [facility] tomorrow for second opinion. The patient [...] Take 20 mg by mouth daily. Vit A,C,L-Rllc-Xenlze (ICAPS AREDS) 14,320-226-200 ixda-ms-jcxd cap Take 1 capsule by mouth daily. [...] for a second opinion at [facility] tomorrow before he starts treatment. His [...] This note was in part completed with Reactivity, a speech recognition software. Some grammatical and brake engineer errors may have occurred. 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
--- OUTSIDE RECORDS SUMMARY | 2018-09-30 13:16 | XMS REPORT | Encounter Summary ---
Author Author [facility] Organization [facility] Address Unknown Phone Unavailable Care Team Providers Care Residential Real Estate Sales Manager Name Role Phone Sae Gu MD [...] (SHEBA) MD KAILA Ontiveros Required amyloidosis [address] [place] [address] (HCC) [address] [place] [address] [place] [address] Phone: Fax: Reason for Visit * Reason Comments Heme/Onc Care Encounter Details Date Type Department Care Team Description 08/18/2018 Office Visit [facility] Angella Rincon MD Neuropathy (Primary Dx); Cancer Center - WW Exam [address] [place] [address] amyloidosis (HCC); [address] [phone] Proteinuria, [place] [address] type [phone] Social History Tobacco Use Types Packs/Day Years [...] all paperwork requests. For Non-Urgent phone calls: [phone]- all calls left between 8 and 3:30 returned in the same business day or following morning For Urgent phone call needs: [phone]- if between 8 and 4, ask for Dr Rincon's CNCs Mary or Fanny to be paged; if after hours, ask for MD contact printer dry film to be paged. For Scheduling needs: [phone] For primary care needs, such as blood [...] clinic appointment for review. AMYLOIDOSIS SUPPORT GROUP Algebra Tutor: Jess [phone] (Toll-Free) or [email or web address] If you are from, [place], [facility], [place] or anywhere else , know you are [...] hypoalbuminemia and proteinuria patient was sent to junior media buyer at [place] who recommended a kidney biopsy that was [...] Take 20 mg by mouth daily. Vit A,C,F-Hlez-Xakwse (ICAPS AREDS) 14,320-226-200 vkxr-rn-qnnu cap Take 1 capsule by mouth daily. [...] Fix-Serum NO PARAPROTEIN SEEN 08/08/2018 04:30 PM [place], FLC 1.20 08/08/2018 04:30 PM [place], FLC 4.03 (H) 08/08/2018 04:30 PM [place]/Lambda FLC 0.30 08/08/2018 04:30 PM B2 Microglobulin [...] skeltal survey showed osteopenia. Mass spect at [facility] for the kidney biopsy showed [...] his renal amyloidosis, Pt is following his junior media buyer, will start him on treatment for his [place] Amyloidosis I will send my note to pt PCP Dr. Gu, and Dr. Salvador Rincon M.D On Site Construction Superintendent of Internal medicine Division of Hematologic Malignancies and Cellular Therapeutics Pager [phone] * Mary Gallego, MILLIE - 08/18/2018 12:00 PM CDT Formatting of this note may be different from the original. 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
--- OUTSIDE RECORDS SUMMARY | 2018-09-30 13:17 | XMS REPORT | Encounter Summary ---
Author Author [facility] Organization [facility] Address Unknown Phone Unavailable Care Team Providers Care Apiculturist Name Role Phone Sae Gu MD PCP Sae Allen MD Unavailable Luisa Call DO Unavailable Nikita Armijo MD Unavailable Isai Parra MD Unavailable Shameka Ashton MD Unavailable Encounter Details Date Type Department Care Team Description 08/08/2018 Hospital [facility] Angella Rincon MD Encounter [facility] [address] [facility] [address] [place] [address] [address] [facility] [place] [facility] [address] [phone] [place] [address] [phone] Social History Tobacco Use Types Packs/Day Years [...] by mouth 07/11/2018 mg tablet daily. Vit A,C,X-Hgex-Chftjg Take 1 capsule by mouth (ICAPS AREDS) daily. 14,320-226-200 savk-kq-edlp cap VITAMIN D 50,000 unit Take 50,000 Units by 04/27/2018 capsule mouth twice weekly. as of this encounter Plan of Treatment Not on fileas of this encounter Procedures Procedure Name Priority Date/Time Associated Diagnosis Comments BONE MARROW 08/08/2018 Results for this 5:03 PM CDT procedure are in the results section. [facility] TEST Routine 08/08/2018 Results for this 4:30 PM CDT procedure are in the results section. [facility] REFERENCE TEST Routine 08/08/2018 Amyloidosis, unspecified Results [...] PATHOLOGY REPORT [facility] [email or web address] Department of Pathology and Laboratory Medicine [address] [place] [address] Surgical Pathology Office:[phone] :[phone] SURGICAL PATHOLOGY REPORT NAME: NEGRITA MOORE SURG PATH #: [id number] MR #: [id number] ALT ID #: LOCATION: [facility] DATE OF PROCEDURE: 08/08/2018 AGE:77 [...] of Pathology and Laboratory Medicine of the [facility] ([employer]) in compliance with [...] of Pathology and Laboratory Medicine of the [facility].It has not been cleared or approved by the FDA.The FDA has determined that such clearance or approval is not necessary. Performing Organization Address City/State/Zipcode Phone Number [facility] LAB RESULTS * [facility] TEST (08/08/2018 4:30 PM) [facility] PB[facility], NT Pro BNP, S REFERENCE LAB Info [place] Miscellaneous Result SEE COMMENTS 08/10/2018 11:18 REFERENCE [...] absence of renal failure. Test Performed by: [address] [address] Performing Organization Address City/[facility] [address]/[facility] Phone Number REFERENCE LAB REFERENCE LAB See results for address. * [facility] REFERENCE TEST (08/08/2018 4:30 PM) Test NT Pro B Type Natriuretic REFERENCE LAB Peptide (BNP), Serum Reference Lab PERFORMED AT [facility] REFERENCE LAB LABORATORIES Results Ref Lab SEE [facility] TEST REFERENCE LAB Specimen Mail SERUM REFERENCE LAB Performing Organization Address City/[facility] [address]/[facility] Phone Number REFERENCE LAB REFERENCE LAB See results for address. * FLOW CYTOMETRY (08/08/2018 3:43 PM) PATHOLOGY REPORT [facility] [email or web address] Aric Broussard MD, Director of Flow Cytometry Laboratory Department of Pathology and Laboratory Medicine [address] [place] [address] Surgical Pathology Office:[phone] :[phone] FLOW CYTOMETRY REPORT NAME: NEGRITA MOORE SURG PATH #: [id number] MR #: [id number] SPECIMEN CLASS: BILLING #: [id number] ALT ID #:LOCATION: [id number] DATE OF PROCEDURE: [...] Plasma Cell Associated Markers (% Positive Cells): OL72=622; HX997=070; cyKappa=5; cyLambda=93; cyK/cyL ratio=0.1 Miscellaneous Markers (% Positive Cells): CD19=5; CD20=44; CD27=35; CD28=2; CD45=93; CD56=3; CD81=69; WF968=56 Cell Viability (%):n/a Number of Cells Analyzed:1,103,218 Plasma Cells Detected:1.66 Total Number of Markers:15 Summary of Marker Combinations: 81/28/138/38/45/27/20; cyKappa/cyLambda/138/117/38/45 /56/19 This test was developed and its performance characteristics determined by the [facility] Flow Cytometry Laboratory.It has not been [...]
--- OUTSIDE RECORDS SUMMARY | 2018-09-30 13:17 | XMS REPORT | Encounter Summary ---
Author Author [facility] Organization [facility] Address Unknown Phone Unavailable Care Team Providers Care Remittance Clerk Name Role Phone Sae Gu MD PCP Sae Allen MD Unavailable Luisa Call DO Unavailable Nikita Armijo MD Unavailable Isai Parra MD Unavailable Shameka Ashton MD Unavailable Reason for Visit * Reason Comments Heme/Onc Care Encounter Details Date Type Department Care Team Description 08/08/2018 Lab Only [facility] Angella Rincon MD Amyloidosis, unspecified [facility] Exam [address] type (HCC); [place] [address] Personal history of other [address] [phone] [place] [address] circulatory system [phone] Social History Tobacco Use Types Packs/Day Years Used Date Never Smoker Smokeless Tobacco: Never Used Alcohol Use Drinks/Week oz/Week Comments Yes Very Rare Sex Assigned at Date Recorded Not on file as of this encounter Plan of Treatment Not on fileas of this encounter Procedures Procedure Name Priority Date/Time Associated Diagnosis Comments [facility] ARUP TEST Routine 08/08/2018 Results for this 4:30 PM CDT procedure are in the results section. [facility] REFERENCE TEST Routine 08/08/2018 Amyloidosis, unspecified Results [...] results section. in this encounter Results * [facility] (08/08/2018 4:30 PM) Ref Lab Test Code [id number], Troponin T REFERENCE LAB REF LAB RESULT (MSAR) SEE NOTE REFERENCE LAB Test name Result Flag UnitsRefIntvl - Troponin-T 0.04 H ng/mL <=0.01 Performed by [employer], [address], [facility] [place] [address] [email or web address], Loi Wang MD, Lab. Director Performing Organization Address City/[facility]/Zipcode Phone Number REFERENCE LAB REFERENCE LAB See results for address. * MISC REFERENCE TEST (08/08/2018 4:30 PM) Test Troponin T REFERENCE LAB Reference Lab PERFORMED AT [facility] REFERENCE LAB LABORATORY-FOR REF RANGE SEE REPORT. Results Ref Lab SEE REF LAB RESULT REFERENCE LAB Specimen Mail SERUM REFERENCE LAB Performing Organization Address [facility]/Zipcode Phone Number REFERENCE LAB REFERENCE LAB See results for address. * BETA 2 MICROGLOBULIN (08/08/2018 4:30 PM) B2 Microglobulin 1.9 0.8 - 2.3 MG/L [facility] MAIN [facility] Specimen Blood Performing Organization Address [facility] Phone Number [facility] [address] [place] [address] * BNP (B-TYPE NATRIURETIC PEPTI) (08/08/2018 4:30 PM) B Type Natriuretic 611.0 (H) 0 - 100 PG/ML MAIN LAB Peptide Specimen Blood Performing Organization Address [facility] Phone Number [facility] [address] [place] [address] * CBC AND DIFF (08/08/2018 4:30 PM) White Blood Cells 7.0 4.5 - 11.0 K/[facility] RBC 4.18 (L) 4.4 - 5.5 [...] LAB Manual Specimen Blood Performing Organization Address City/[facility]/Zipcode Phone Number [facility] [address] [place] [address] * COMPREHENSIVE METABOLIC PANEL (08/08/2018 4:30 PM) [...] for questions. Specimen Blood Performing Organization Address City/[facility]/Zipcode Phone Number [facility] [address] [place] [address] * ELECTROPHORESIS-SERUM PROTEIN (08/08/2018 4:30 PM) Total [...] Pathologist Signature INTERPRETED BY LUCERO RANGEL M.D. [facility] By the PATH SIGNATURE ABOVE, I attest that I have personally formulated the final interpretation expressed in this report and that the above diagnosis is based upon my examination of the slides and/or other material indicated in this report. Specimen Blood Performing Organization Address City/[facility]/Zipcode Phone Number [facility] [address] [place] [address] * IMMUNOGLOBULINS-IGA,IGG,IGM (08/08/2018 4:30 PM) IgG 277 (L) 762 - 1,488 MG/DL [facility] IgA 46 (L) 70 - 390 MG/DL [facility] IgM 31 (L) 38 - 328 MG/DL [facility] Specimen Blood Performing Organization Address City/[facility]/Zipcode Phone Number [facility] [address] [place] [address] * IMMUNOFIXATION, SERUM (IFES) (08/08/2018 4:30 PM) Immuno Fix-Serum NO PARAPROTEIN SEEN [facility] Pathologist Signature INTERPRETED BY LUCERO RANGEL M.D. [facility] By the PATH SIGNATURE ABOVE, I attest that I have personally formulated the final interpretation expressed in this report and that the above diagnosis is based upon my examination of the slides and/or other material indicated in this report. Specimen Blood Performing Organization Address [facility]/Zipcode Phone Number [facility] [address] [place] [address] * KAPPA/LAMBDA FREE LIGHT CHAINS (08/08/2018 4:30 PM) Arvin, FLC 1.20 0.33 - 1.94 MG/DL [facility] Comment: Freelite results should always be interpreted in conjunction with other laboratory tests and clinical evidence.The possibility of Antigen Excess exists and can cause Immunoassays to under estimate very high concentrations of antigen. Any discordant results should be discussed with Dr. Montaño. Lambda, FLC 4.03 (H) 0.57 - 2.63 MG/DL MAIN LAB Arvin/Lambda FLC 0.30 0.26 - 1.65 MAIN LAB Specimen Blood Performing Organization Address [facility]cond Phone Number MAIN LAB [address] [place] [address] * LDH-LACTATE DEHYDROGENASE (08/08/2018 4:30 PM) Lactate Dehydrogenase 234 (H) 100 - 210 U/L [facility] Specimen Blood Performing Organization Address [facility]code Phone Number [facility] [address] [place] [address] * PROTIME INR (PT) (08/08/2018 4:30 PM) INR 0.9 0.8 - 1.2 MAIN LAB Specimen Blood Performing Organization Address [facility] Phone Number MAIN LAB [address] [place] [address] * PTT (APTT) (08/08/2018 4:30 PM) APTT 28.9Comment: NOTE NEW 20.0 - 36.0 SEC MAIN LAB REFERENCE RANGES Specimen Blood Performing Organization Address [facility] Phone Number [facility] [address] [place] [address] in this encounter Visit Diagnoses Diagnosis Amyloidosis, unspecified type (HCC) Personal history of other diseases of the circulatory system
--- OUTSIDE RECORDS SUMMARY | 2018-09-30 13:17 | XMS REPORT | Encounter Summary ---
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 Physician/Surgeon: Madeleine Dunn APRN Coal Dumping Equipment Operator; Beata Loya Scrub: Rim Fire Priming Operator: Lucinda Bingham Prep Area: Left iliac crest [...] Marrow - Bone Marrow Performing Organization Address City/[facility]/Zipcode Phone Number MAIN LAB [address] [place] [address] * FE STAIN (08/08/2018 3:43 PM) Bone Marrow FE SEE PATHOLOGY REPORT MAIN LAB Specimen Bone Marrow - Bone Marrow Performing Organization Address City/[facility]/Zipcode Phone Number MAIN LAB [address] [place] [address] * CHROMOSOMES FISH DNA PROBE (08/08/2018 3:43 PM) Chromosomes Fish DNA SEE LANDSCAPE ARCHITECTURE TEACHER FOR REPORT MAIN LAB Probe Specimen Bone Marrow Performing Organization Address City/[facility]/Zipcode Phone Number MAIN LAB [address] [place] [address] * CHROMOSOMES BONE MARROW (08/08/2018 3:43 PM) Chromosomes Bone Marrow SEE LANDSCAPE ARCHITECTURE TEACHER FOR REPORT MAIN LAB Specimen Bone Marrow Performing Organization Address City/[facility] Phone Number MAIN LAB [address] [place] [address] * BONE MARROW BIOPSY (08/08/2018 3:43 PM) Bone Marrow Bx SEE PATHOLOGY REPORT MAIN LAB Specimen Bone Marrow - Bone Marrow Performing Organization Address [facility] Cent[facility] Phone Number MAIN LAB [address] [place] [address] * BONE MARROW ASP (08/08/2018 3:43 PM) Bone Marrow Asp SEE PATHOLOGY REPORT MAIN LAB Specimen Bone Marrow - Bone Marrow Performing Organization Address [facility] Phone Number [facility] [address] [place] [address] * BIOPSY BONE MARROW PROCEDURE (08/08/2018 3:00 [...] procedure well. CHELSEY Loja Performing Organization Address [facility]/State/Zipcode Phone Number OTHER OUTSIDE LAB in this encounter Visit Diagnoses Diagnosis Amyloidosis, unspecified type (HCC) - Primary Multiple myeloma, remission status unspecified (HCC)
--- OUTSIDE RECORDS SUMMARY | 2018-09-30 13:18 | XMS REPORT | Encounter Summary ---
Author Author [facility] Organization [facility] Address Unknown Phone Unavailable Care Team Providers Care Washer Carcass Name Role Phone Sae Gu MD PCP Sae Allen MD Unavailable Luisa Call DO Unavailable Nikita Armijo MD Unavailable Isai Parra MD Unavailable Shameka Ashton MD Unavailable Salvador Markham MD 3 Salvador Markham MD Unavailable Encounter Details Date Type Department Care Team Description 07/08/2018 Pharmacy Visit [facility] [address] [place] [address] Social History Tobacco Use Types Packs/Day Years Used Date Never Smoker Smokeless Tobacco: Never Used Alcohol Use Drinks/Week oz/Week Comments Yes Very Rare Sex Assigned at Date Recorded Not on file as of this encounter Plan of Treatment Not on fileas of this encounter Visit Diagnoses Not on filein this encounter
--- OUTSIDE RECORDS SUMMARY | 2018-09-30 13:18 | XMS REPORT | Encounter Summary ---
Author Author [facility] Organization [facility] Address Unknown Phone Unavailable Care Team Providers Care Public Works Director Name Role Phone Sae Gu MD PCP Sae Allen MD Unavailable Luisa Call DO Unavailable Nikita Armijo MD Unavailable Isai Parra MD Unavailable Shameka Ashton MD Unavailable Reason for Visit * Reason Comments Navigation Assessment Encounter Details Date Type Department Care Team Description 08/05/2018 Telephone [facility] Angella Rincon MD Navigation Assessment [facility] Exam [id number] [facility] [phone] [place] [address] [phone] Social History Tobacco Use Types Packs/Day Years [...] Patient Name: Keo Whitt : 1940 Insurance: Medicare/[facility] Appointment Info: Future Appointments Date Time Provider Department Center 08/08/2018 1:20 PM Angella Rincon MD [facility] Exam 08/30/2018 1:00 PM NON-IMAGING [...] Amyloidosis. Comments: See notes from Neurologist and Air Brake Operator. Can be found in O2. in this encounter Plan of Treatment Not on fileas of this encounter Visit Diagnoses Not on filein this encounter
--- OUTSIDE RECORDS SUMMARY | 2018-09-30 13:18 | XMS REPORT | Encounter Summary ---
Author Author [facility] Organization [facility] Address Unknown Phone Unavailable Care Team Providers Care Weld Engineer Name Role Phone Sae Gu MD PCP Reason for Visit * Reason Comments Follow-up Phone Call Encounter Details Date Type Department Care Team Description 07/08/2018 Telephone Cardiovascular Medicine Fior Thomas RN Follow-up Phone Call [address] [place] [address] Social History Tobacco Use Types [...] scheduled for tilt table today at 1pm ([facility]) Room [id number] 1 please call patient's mobile number. Thanks Ava in this encounter Plan of Treatment Not on fileas of this encounter Visit Diagnoses Not on filein this encounter
--- OUTSIDE RECORDS SUMMARY | 2018-09-30 13:18 | XMS REPORT | Encounter Summary ---
Author [facility] Address Unknown Phone Unavailable Care Team Providers Care Blood Bank Laboratory Technician Name Role Phone Sae Gu MD PCP Reason for Referral * Radiology Services Status Reason Specialty Diagnoses / Referred By Referred To Procedures Contact Contact No Auth Needed Radiology Diagnoses [facility] Other [facility] 2nd proteinuria fl [address] [place], [place] IR RENAL BIOPSY [address] MD RENAL BIOPSY Phone: LilaKutu [phone] TROCAR/NEEDLE * Radiology Services Status Reason Specialty Diagnoses / Referred By Referred To Procedures Contact Contact No Auth Needed Radiology Diagnoses Doctor [facility] Other [facility] 2nd proteinuria fl P [address] [place], [place] IR RENAL BIOPSY [address] MD RENAL BIOPSY Phone: LilaKutu [phone] TROCAR/NEEDLE Reason for Visit * Auth/Cert Status Reason Specialty Diagnoses / Referred By Referred To Procedures Contact Contact Diagnoses Other proteinuria P roteinuria P rocedures IR RENAL BIOPSY Encounter Details Date Type Department Care Team Description 07/07/2018 Hospital Renal/Organ Transplant Sae Gu III, Proteinuria - Encounter Main [facility] 6th fl Unit 07/08/[address] [place] [address] [place], [place] [id number] Zahraa Saleh MD [address] [facility] [address] [place] [address] [phone] Ed Dunlap DO [address] [facility] [address] [place] [address] [phone] Serena Escamilla RN B arger, Stephanie, RT(R)(),LRT Juancho Saez MD [address] [place] [address] [phone] Social History Tobacco Use Types Packs/Day Years [...] 07/08/2018 Attending Physician: Ed Terrazas DO Service: [facility] N- 6773 Physician Summary completed by: Ed [...] next day. He will follow-up with his Bread Dough Mixer in [place], [place] for the pathology results. Condition at [...] HOURS (8:00 AM - 4:30 PM): Call [phone] and asked to be transferred to your discharge attending physician. - AFTER BUSINESS HOURS (4:30 PM - 8:00 AM, on weekends, or holidays): Call [phone] and ask the oxygraph operator to page the on-call doctor for the discharge attending physician. Discharging attending physician: ED TERRAZAS [[id number]] Current Discharge Medication List CONTINUE these medications [...] 14 days. PRESCRIPTION TYPE: Historical Med Vit A,C,C-Yfad-Ttizkh (ICAPS AREDS) 14,320-226-200 emjm-ni-agpe cap Take 1 capsule by mouth daily. [...] NI-Autonomic Testing with Tilt with NON-IMAGING PROCEDURE [facility] Cardiology ([facility] [facility] [address] Jul 21, 2018 9:40 AM CDT Return Patient with Nikita Armijo MD [facility] Physicians-Neurology ([facility] Neu[facility]) [facility] [address] [facility] [address] Pending items needing follow up: [...] increased shortness of breath Sudden chest pain Jhvmtws286.4F orhigher, orchills Increasing redness, tenderness, or swelling [...] or concerns related to the procedure, call [phone] for Wednesday-Wednesday 7-5. After-hours and weekends, please call [phone] and ask for the Interventional Fur Blender on-call. in this encounter Medications at Time [...] PEN as directed every 14 days. Vit A,C,K-Eovp-Ndpdqp Take 1 capsule by mouth (ICAPS AREDS) daily. 14,320226-200 mwkt-hm-ivxd cap VITAMIN D 50,000 unit Take 50,000 [...] pending , he will follow-up with his Bread Dough Mixer in [place], [place] for this. Discharge to home today in stable condition. * Theodora Matthews RN - 07/07/2018 6:51 PM CDT This RN gave report to Unit 64 RN taking patient. This RN answered all questions and concerns. * Theodora Matthews RN - 07/07/2018 1:47 PM CDT Spoke with Dr. Shaffer regarding admitting patient post procedure. Physician will see patient in [place]. * Serena Becerril, RN - 07/07/2018 1:16 PM CDT Procedure completed after undergraduate advisor held pressure for 10 minutes. Patient is awake and calm and alert. * Serena Becerril, RN - 07/07/2018 12:47 PM CDT Anesthesia staff is present and assume all responsibility for VS, sedations, meds and airway as needed. * Yordan Cespedes RN - 07/07/2018 11:13 AM CDT This RN contacted Fior, the pt's classifier tender RN to request pt's medical record for [...] - Follows with Dr. Jas Parra at [facility] - Kidney function continues to be stable [...] Pause - On an event monitor per classifier tender at [place] - Last episode related to vagal tone [...] 50,000 Units by mouth twice daily. Vit A,C,R-Jxmh-Yjfimh (ICAPS AREDS) 14,320-226-200 ihtl-ig-xluy cap Unknown Yes No Sig: Take by [...] MD General Internal Medicine * Jazmyn Kidd, MSN,SHEET METAL WORKER APPRENTICE - 07/07/2018 10:13 AM CDT Formatting of this note may be different from the original. Pre Procedure History and Physical/Sedation Plan Procedure Date: 07/07/2018 Planned Procedure(s): [place] kidney biopsy. Indication for exam: Proteinuria. Chief [...] to , patient gave a note from classifier tender in [place] from 07/06 saying patient had 6 second pause when wearing equipment monitor phototypesetting 06/28. They related this to pt having full bladder. Discussed with Dr. Soler and will call classifier tender for cardiac clearance and have anesthesia provide sedation during the case. Spoke with MILLIE Childress in [place] that got clearance for procedure from both Dr. Cantu (primary classifier tender) and Dr. Cano (EP classifier tender). Spoke with Dr. Soler who is ok proceeding with anesthesia. Jazmyn Kidd, MSN,SHEET METAL WORKER APPRENTICE Pager [phone] in this encounter Miscellaneous Notes * Case [...] this added. NCM told pt and about School Places to use in the meantime. No NCM needs identified. Plan: Discharge home today. Pt's to drive pt home. Plan: CM Assessment, Discharge Planning for Home Anticipated Patient Address/Phone [address] [phone] (home) Emergency Contact Extended Emergency Contact Information Primary Emergency Contact: Moore,Ashley [facility] Relation: Spouse Healthcare Directive Healthcare Directive: Yes, patient has a healthcare directive Type of Healthcare Directive: Durable power of road engineer for healthcare Location of Healthcare Directive: Patient does not have it with him/her Would patient like to fill out a (a new) Healthcare Directive?: No, patient declined Psych Advance Directive (Psych unit only): No, patient does not have a Psych Advance Directive Transportation Does the patient need discharge transport arranged?: No Transportation Name, Phone and Availability #1: Pt's Ashley [phone] Does the patient use Medicaid Transportation?: No [...] him about a month ago. ? Pharmacy [facility] - [place], [place] - [address] [place] [id number] ? Durable Medical Equipment Durable Medical Equipment [...] Outpatient Therapy PT: No OT: No ? [facility] Facility[facility] SNF: No NH: No ? Inpatient Rehab IPR: No ? Long-Term Acute Care Hospital LTACH: No ? Acute Hospital Stay Acute Hospital Stay: No DAVID Shah RN Nurse Grip Wrapper Voalte Text Phone: [phone] Pager: [phone] * Care Plan - Nini Puentes RN - 07/08/2018 12:49 PM CDT Problem: Falls, High Risk of Goal: Absence of falls-Adult Patient Outcome: Goal Achieved Date Met: 07/08/18 Pt was absent of falls during hospital stay. Fall risk bundle was in place. * Care Coordination-Inpatient - Luh Soto MD - 07/08/2018 3:55 AM CDT Pt assigned to [facility], please page [phone] prior to 8 am on 07/08/18, then page [phone] if questions * Procedures (Immed Post or [...] [facility] Routine 07/07/2018 Results for this 8:00 PM CDT procedure are in the results section. [facility] 07/07/2018 Other proteinuria Results [...] Address City/State/Zipcode Phone Number [facility] [address] [place] [address] * COMPREHENSIVE METABOLIC PANEL (07/08/2018 5:26 AM) [...] Blood Performing Organization Address City/State/Zipcode Phone Number [facility] [address] [place] [address] * CBC (07/08/2018 5:26 AM) White Blood Cells 6.9 4.5 - 11.0 [facility] RBC 3.95 (L) 4.4 - 5.5 M/UL [facility] Hemoglobin 12.7 (L) 13.5 - 16.5 [...] LAB MPV 9.2 7 - 11 FL [facility] Specimen Blood Performing Organization Address City/State/Zipcode Phone Number [facility] [address] [place] [address] * [facility] TEST (07/07/2018 8:00 PM) [facility], Phospholipase A2 REFERENCE LAB Info Receptor AB, S [facility] Result SEE COMMENTS 07/12/2018 08:53 REFERENCE LAB AM Test Result FlagUnit RefValue ------ Phospholipase A2 Receptor AB, S Phospholipase A2 Receptor IFA, SNegative Negative ADDITIONAL INFORMATION This test was developed and its performance characteristics determined by [facility] in a manner consistent with CLIA requirements. This test has not been cleared or approved by the U.S. Food and Drug Administration. Phospholipase A2 Receptor NIMISHA,<2 RU/mL S REFERENCE VALUE - <14 RU/mL: Negative 14-19 RU/mL: Borderline >19 RU/mL: Positive Test Performed by: [address] [address] Performing Organization Address City/[facility] Phone Number REFERENCE LAB REFERENCE LAB See results for address. * [facility] REFERENCE TEST (07/07/2018 8:00 PM) Test Phospholipase A2 Receptor REFERENCE LAB Antibodies, Serum Reference Lab PERFORMED AT [facility] Results Ref Lab SEE [facility] TEST REFERENCE LAB Specimen Mail SERUM REFERENCE LAB Performing Organization Address [facility] Phone Number REFERENCE LAB REFERENCE LAB See results for address. * CBC (07/07/2018 8:00 PM) White Blood Cells 7.0 4.5 - 11.0 K/UL [facility] RBC 3.98 (L) 4.4 - 5.5 M/UL [facility] Hemoglobin 13.3 (L) 13.5 - 16.5 GM/DL [facility] Hematocrit 37.3 (L) 40 - 50 % [facility] MCV 93.7 80 - 100 FL [facility] MCH 33.4 26 - 34 PG [facility] MCHC 35.6 32.0 - 36.0 G/DL [facility] RDW 14.4 11 - 15 % [facility] Platelet Count 188 150 - 400 K/UL [facility] MPV 9.2 7 - 11 FL [facility] Specimen Blood Performing Organization Address City/[facility]/Zipcode Phone Number [facility] [address] [place] [address] * PROTIME INR (PT) (07/07/2018 8:00 PM) INR 1.0 0.8 - 1.2 [facility] Specimen Blood Performing Organization Address [facility] Phone Number [facility] [address] [place] [address] * SURGICAL PATHOLOGY (07/07/2018 2:03 PM) PATHOLOGY REPORT [facility] Essential Viewing LAB [facility] [email or web address] Department of Pathology and Laboratory Medicine [address] [place] [address] Surgical Pathology Office:[phone] :[phone] SURGICAL PATHOLOGY REPORT NAME: NEGRITA MOORE SURG PATH #: [id number] MR #: [id number] SPECIMEN CLASS: SR BILLING #: [id number] ALT ID #:LOCATION: DATE OF PROCEDURE: 07/07/2018 AGE:77 SEX: M DATE RECEIVED: 07/07/2018 : 1940TIME RECEIVED: 14:03 PHYSICIAN: JAS PARRA MD DATE OF REPORT: 07/20/2018 COPY TO:DATE OF PRINTIN07/20/2018 ############################## ############################## ############ Final Diagnosis: A, B and C. Kidney (akiachak), core needle biopsy: Amyloidosis. Attestation: By this signature, I attest that I have personally formulated the final interpretation expressed in this report and that the above diagnosis is based upon my examination of the slides and/or other material indicated in this report. +++ +++ ksw/07/08/2018 ############################## ############################## ############ Material Received: A: [place] Kidney with Protocol B: Immunofluorescence (Moira)-[place] Kidney C: Electron microscopy (glutaraldehyde)-[place] ( mailed out to [facility] for processing) History: 77-year-old male with [...] and its performance characteristics determined by the [facility] pathology laboratory. It has not [...] Description: A. Received in formalin labeled "left [place] renal biopsy" is a 1.1 cm in length by 0.1 in diameter core of lombardo-red tissue . The specimen is submitted entirely in cassette A1. (ab) B. Received in Renan's solution labeled "left [place] renal biopsy-IF" is a 0.9 x 0.1 x 0.1 cm core of lombardo-red tissue. The specimen is submitted entirely for immunofluorescence studies.(ab) C. Received in saline and transferred to formalin labeled "left [place] renal biopsy-EM" is a 0.8 x 0.1 x 0.1 cm core of lombardo-red tissue. The specimen is submitted entirely in sent to [facility] for electron microscopy studies.(ab) ab/07/07/2018 If immunohistochemical stains and/or in situ hybridization are cited in this report, the performance characteristics were determined by the Department of Pathology and Laboratory Medicine of the [facility] ([employer]) in compliance [...] of Pathology and Laboratory Medicine of the [facility].It has not been cleared or [...] expressed in this report. @TT Finalized by NAHTAN SOLER on 07/11/2018 4:26 PM. Dictated by NATHAN SOLER on 2017 4:25 PM. Narrative Performed At Ultrasound Guided Percutaneous [place] Kidney Biopsy [facility] RES[facility] INDICATION:Renal failure ECONOMICS DEPARTMENT CHAIR:Nathan Soler M.D. DEVICE:18g biopsy gun through 17g needle guide [id number] gauge cores COMPLICATIONS:None immediate TECHNIQUE: The risks, [...] 07/11/2018 4:29 PM CDT Ultrasound Guided Percutaneous [place] Kidney Biopsy INDICATION: Renal failure ECONOMICS DEPARTMENT CHAIR: Nathan Soler M.D. DEVICE: 18g biopsy gun [...]
--- OUTSIDE RECORDS SUMMARY | 2018-09-30 13:18 | XMS REPORT | Encounter Summary ---
Author Author [facility] Organization [facility] Address Unknown Phone Unavailable Care Team Providers Care Systems Test Technician Name Role Phone Sae Gu MD PCP Encounter Details Date Type Department Care Team Description 07/11/2018 Hospital [facility] Albino Terrazas, Other proteinuria Encounter [facility] 1st fl [address] [place] [address] [place] [address] [phone] Social History Tobacco Use Types Packs/Day Years [...] by mouth 07/11/2018 mg tablet daily. Vit A,C,U-Qojv-Prukln Take 1 capsule by mouth (ICAPS AREDS) daily. 14,320-226-200 ohwk-ic-sliq cap VITAMIN D 50,000 unit Take 50,000 Units by 04/27/2018 capsule mouth twice weekly. as of this encounter Plan of Treatment Not on fileas of this encounter Procedures Procedure Name Priority Date/Time Associated Diagnosis Comments MISCELLANEOUS SURGICAL 07/11/2018 Other proteinuria Results for this PATHOLOGY REFERENCE LAB 3:35 PM CDT procedure are in the TEST results section. [facility] TEST 07/11/2018 Results for this 3:35 PM CDT procedure are in the results section. in this encounter Results * [facility] TEST (07/11/2018 3:35 PM) [facility], Electron Microscopy REFERENCE LAB Info technical only [place] Miscellaneous Result SEE COMMENTS 07/15/2018 01:04 REFERENCE LAB PM Test ResultFlag UnitRefValue ------ Electron Microscopy, Technical Only Electron Microscopy Testing Performed Test Performed by: [address] [address] Performing Organization Address City/[facility] Phone Number REFERENCE LAB REFERENCE LAB See results for address. * MISCELLANEOUS SURGICAL PATHOLOGY REFERENCE LAB TEST (07/11/2018 3:35 PM) Test Electron Microscopy technical REFERENCE LAB only Reference Lab PERFORMED AT [facility] Results Ref Lab Results will be reported in an REFERENCE LAB addendum Specimen Mail Tissue REFERENCE LAB Performing Organization Address City/State/[facility] Phone Number REFERENCE LAB REFERENCE LAB See results for address. in this encounter Visit Diagnoses Diagnosis Other proteinuria Admitting Diagnoses Diagnosis Other proteinuria
--- OUTSIDE RECORDS SUMMARY | 2018-09-30 13:18 | XMS REPORT | Encounter Summary ---
Author Author [facility] Organization [facility] Address Unknown Phone Unavailable Care Team Providers Care Spring Inspector Name Role Phone Sae Gu MD PCP Reason for Visit * Auth/Cert Status Reason Specialty Diagnoses / Referred By Referred To Procedures Contact Contact Diagnoses Other proteinuria P roteinuria P rocedures IR RENAL BIOPSY Encounter Details Date Type Department Care Team Description 07/07/2018 Anesthesia [facility] Alyssa Cabrera SRNA Event [facility] Radiology [address] [place] [address] Anesthesia Record Procedure Name Responsible Anesthesia Start [...] area(s) as directed every 14 days. Vit A,C,U-Ocek-Xntllu (ICAPS AREDS) 14,320-226-200 pifq-bx-bdkn cap Take by mouth daily. VITAMIN D [...] while standing during event. Met with Cardiac Oil Burner Installer on 07/06/2018 - plan for tilt table [...] intravenous NPO status: acceptable Consult/records acquisition requested: certified surgical technician (obtained cardiology records - noted in assessment) Informed Consent Anesthetic plan and risks discussed with patient and spouse. Use of blood products discussed with patient Blood Consent: consented Plan discussed with: anesthesiologist, SRNA and UNEMPLOYMENT INSURANCE HEARING OFFICER. in this encounter Plan of Treatment Not [...]
--- OUTSIDE RECORDS SUMMARY | 2018-09-30 13:18 | XMS REPORT | Encounter Summary ---
Author Author [facility] Organization [facility] Address Unknown Phone Unavailable Care Team Providers Care [place] Welter Name Role Phone Sae Gu MD PCP Reason for Visit * Reason Comments General Question Encounter Details Date Type Department Care Team Description 07/19/2018 [facility] Nikita Armijo MD General Question Physicians-Neurology [address] [facility] [place] [address] [address] [facility] [phone] [place] [address] Social History Tobacco Use Types [...]
--- OUTSIDE RECORDS SUMMARY | 2018-09-30 13:18 | XMS REPORT | Encounter Summary ---
Author Author [facility] Organization [facility] Address Unknown Phone Unavailable Care Team Providers Care Golf Course Mechanic Name Role Phone Sae Gu MD PCP Sae Allen MD Unavailable Luisa Call DO Unavailable Nikita Armijo MD Unavailable Isai Parra MD Unavailable Shameka Ashton MD Unavailable Reason for Referral * Consult, Test & Treat (Routine) Status Reason Specialty Diagnoses / Referred By Referred To Procedures Contact Contact Closed Specialty Diagnoses Angella Rincon Services Weston Briceño MD Required unspecified type [address] [place] [address] Reason for Visit * Reason Comments Heme/Onc Care * Consult, Test & Treat (Routine) Status Reason Specialty Diagnoses / Referred By Referred To Procedures Contact Contact No Auth Needed Hematology / Diagnoses Mckenzie Gu [facility] Sae Briceño III, A, MD referral Dr. BRIGHT [address] Harriet Gu [address] [place] [id number] [place], [place] [address] [address] Phone: NEW PATIENT [phone] Encounter Details Date Type Department Care Team Description 08/08/2018 Office Visit [facility] Angella Rincon MD Multiple myeloma, [facility] Exam [address] [facility] remission status Cancer Center [place], [place] unspecified (HCC) [address] [phone] (Primary Dx); [place], [place] Amyloidosis, unspecified [phone] type (HCC); Personal history of other diseases [...] all paperwork requests. For Non-Urgent phone calls: [phone]- all calls left between 8 and 3:30 returned in the same business day or following morning For Urgent phone call needs: [phone]- if between 8 and 4, ask for Dr Rincon's CNCs Mary or Fanny to be paged; if after hours, ask for MD station supervisor to be paged. For Scheduling needs: [phone] For primary care needs, such as blood [...] hypoalbuminemia and proteinuria patient was sent to food counselor at [place] who recommended a kidney biopsy that was [...] Take 20 mg by mouth daily. Vit A,C,K-Fqkl-Cfolfb (ICAPS AREDS) 14,320-226-200 qytf-cl-oshz cap Take 1 capsule by mouth daily. [...] Fix-Serum NO PARAPROTEIN SEEN 08/08/2018 04:30 PM Shedd, FLC 1.20 08/08/2018 04:30 PM Lambda, FLC 4.03 (H) 08/08/2018 04:30 PM Shedd/Lambda FLC 0.30 08/08/2018 04:30 PM B2 Microglobulin [...] care for the patient Angella Rincon M.D Manager [employer] Chain of Internal medicine Division of Hematologic Malignancies and Cellular Therapeutics Pager [phone] * Mary Gallego RN - 08/08/2018 1:20 [...] MD Neurology 08/08/2018 End 08/08/18 ; Pager: [phone]; Isai Parra MD Nephrology 08/08/2018 End 08/08/18 [facility] [phone] in this encounter Miscellaneous Notes * Assessment [...] B2 Microglobulin 1.9 0.8 - 2.3 MG/L [facility] Specimen Blood Performing Organization Address [facility] Phone Number [facility] [address] [phone] * BNP (B-TYPE NATRIURETIC PEPTI) (08/08/2018 4:30 PM) B Type Natriuretic 611.0 (H) 0 - 100 PG/ML [facility] Peptide Specimen Blood Performing Organization Address [facility] Phone Number [facility] [address] [place] [address] * CBC AND DIFF (08/08/2018 4:30 PM) White Blood Cells 7.0 4.5 - 11.0 K/UL [facility] RBC 4.18 (L) [...] LAB Manual Specimen Blood Performing Organization Address [facility] Phone Number [facility] [address] [place] [address] * COMPREHENSIVE METABOLIC PANEL (08/08/2018 4:30 PM) [...] for questions. Specimen Blood Performing Organization Address City/[facility]/Zipcode Phone Number [facility] [address] [place] [address] * ELECTROPHORESIS-SERUM PROTEIN (08/08/2018 4:30 PM) Total Protein-SEP 4.0 (L) 6.0 - 8.0 G/DL [facility] Albumin % 55.7 48 - [...] Pathologist Signature INTERPRETED BY LUCERO RANGEL M.D. [facility] By the PATH SIGNATURE ABOVE, I attest that I have personally formulated the final interpretation expressed in this report and that the above diagnosis is based upon my examination of the slides and/or other material indicated in this report. Specimen Blood Performing Organization Address [facility] Phone Number [facility] [address] [place] [address] * IMMUNOGLOBULINS-IGA,IGG,IGM (08/08/2018 4:30 PM) IgG 277 (L) 762 - 1,488 MG/DL [facility] IgA 46 (L) 70 - 390 MG/DL [facility] IgM 31 (L) 38 - 328 MG/DL [facility] Specimen Blood Performing Organization Address [facility] Phone Number [facility] [address] [place] [address] * IMMUNOFIXATION, SERUM (IFES) (08/08/2018 4:30 PM) Immuno Fix-Serum NO PARAPROTEIN SEEN [facility] Pathologist Signature INTERPRETED BY LUCERO RANGEL M.D. [facility] By the PATH SIGNATURE ABOVE, I attest that I have personally formulated the final interpretation expressed in this report and that the above diagnosis is based upon my examination of the slides and/or other material indicated in this report. Specimen Blood Performing Organization Address [facility] Phone Number [facility] [address] [place] [address] * KAPPA/LAMBDA FREE LIGHT CHAINS (08/08/2018 4:30 PM) Shedd, FLC 1.20 0.33 - 1.94 MG/DL [facility] Comment: Freelite results should always be interpreted in conjunction with other laboratory tests and clinical evidence.The possibility of Antigen Excess exists and can cause Immunoassays to under estimate very high concentrations of antigen. Any discordant results should be discussed with Dr. Montaño. Lambda, FLC 4.03 (H) 0.57 - 2.63 MG/DL [facility] Shedd/Lambda FLC 0.30 0.26 - 1.65 [facility] Specimen Blood Performing Organization Address [facility] Phone Number [facility] [address] [place] [address] * LDH-LACTATE DEHYDROGENASE (08/08/2018 4:30 PM) Lactate Dehydrogenase 234 (H) 100 - 210 U/L [facility] Specimen Blood Performing Organization Address [facility] Phone Number [facility] [address] [place] [address] * PROTIME INR (PT) (08/08/2018 4:30 PM) INR 0.9 0.8 - 1.2 [facility] Specimen Blood Performing Organization Address [facility] Phone Number [facility] [address] [place] [address] * PTT (APTT) (08/08/2018 4:30 PM) APTT 28.9Comment: NOTE NEW 20.0 - 36.0 SEC [facility] REFERENCE RANGES Specimen Blood Performing Organization Address [facility] Phone Number [facility] [address] [place] [address] * CHROMOSOMES FISH DNA PROBE (08/08/2018 3:43 PM) Chromosomes Fish DNA SEE PER DIEM PHYSICAL THERAPIST ASSISTANT FOR REPORT [facility] Probe Specimen Bone Marrow Performing Organization Address [facility] Phone Number [facility] [address] [place] [address] * CHROMOSOMES BONE MARROW (08/08/2018 3:43 PM) Chromosomes Bone Marrow SEE PER DIEM PHYSICAL THERAPIST ASSISTANT FOR REPORT [facility] Specimen Bone Marrow Performing Organization Address [facility] Phone Number [facility] [address] [place] [address] * LEUKEMIA/LYMPHOMA PNL, BONE MARROW (08/08/2018 3:43 PM) Leuk/Lymph Interpretation SEE PATHOLOGY REPORT [facility] Specimen/LLM BONE MARROW [facility] Specimen Bone Marrow - Bone Marrow Performing Organization Address City/[facility]/Zipcode Phone Number [facility] [address] [place] [address] * FE STAIN (08/08/2018 3:43 PM) Bone Marrow FE SEE PATHOLOGY REPORT [facility] Specimen Bone Marrow - Bone Marrow Performing Organization Address [facility]/Zipcode Phone Number [facility] [address] [place] [address] * BONE MARROW BIOPSY (08/08/2018 3:43 PM) Bone Marrow Bx SEE PATHOLOGY REPORT [facility] Specimen Bone Marrow - Bone Marrow Performing Organization Address [facility]/Zipcode Phone Number [facility] [address] [place] [address] * BONE MARROW ASP (08/08/2018 3:43 PM) Bone Marrow Asp SEE PATHOLOGY REPORT [facility] Specimen Bone Marrow - Bone Marrow Performing Organization Address [facility] Phone Number [facility] [address] [place] [address] * METASTATIC SKELETAL SURVEY (08/08/2018 3:06 PM) [...] procedure well. CHELSEY Loja Performing Organization Address [facility] Phone Number OTHER OUTSIDE LAB in this encounter Visit Diagnoses Diagnosis Multiple myeloma, remission status unspecified (HCC) - Primary Amyloidosis, unspecified type (HCC) Personal history of other diseases of the circulatory system Neuropathy Mononeuritis of unspecified site Proteinuria, unspecified type
[2018-09-30] MEDS: METOCLOPRAMIDE INJ 10 MG/2 ML (REGLAN) IVP SCH ×2 (13:20→18:21)
--- NOTE | 2018-09-30 14:13 | Progress Note (SOAP) ---
Subjective Date Seen by a Provider: Sep 30, 2018 Time Seen by a Provider: 13:00 Subjective/Events-last exam doing ok. states still has intermittent episodes of nausea. still having BM's. symptoms could be cemo or disease related. Objective Exam Capillary Refill : General Appearance: No Apparent Distress HEENT: PERRL/EOMI Neck: Full Range of Motion Respiratory: Chest Non Tender, Lungs Clear, Normal Breath Sounds Cardiovascular: Regular Rate, Rhythm Gastrointestinal: normal bowel sounds Extremity: Normal Capillary Refill Neurologic/Psychiatric: Alert, Oriented x3 Skin: Normal Color Lymphatic: No Adenopathy Assessment/Plan Assessment/Plan Assess & Plan/Chief Complaint amyloidisis with weakness and nausea/vomiting. very slow improvement daily. SWB status now. continue facilitating BM's. continue ambulation as much as possible. diet as tolerated. Clinical Quality Measures DVT/VTE Risk/Contraindication: Risk Factor Score Per Nursin ANA MENDEZ MD Sep 30, 2018 2:13 pm
--- NOTE | 2018-09-30 15:41 | Physical Therapy Evaluation ---
PT Evaluation-General Medical Diagnosis Admission Date Sep 30, 2018 at 11:21 Medical Diagnosis: amyloidisis with weakness and nausea/vomiting. Onset Date: Sep 22, 2018 Therapy Diagnosis Therapy Diagnosis: General weakness, Debility Height/Weight Height (Feet): 5 Height (Inches): 10.00 Weight (Pounds): 220 Weight (Ounces): 8.0 Precautions Precautions/Isolations: Fall Prevention Weight Bear Status Right Lower Extremity: Right Full Weight Bearing Left Lower Extremity: Left Full Weight Bearing Referral Physician: Nathaniel Reason for Referral: Evaluation/Treatment Medical History Pertinent Medical History: CABG, CAD, HTN, Macular Degenertion, Neuropathy Current History Pt being switched from general med/surg inpatient to SWB inpatient. Reviewed History: Yes Social History Home: Single Level Current Living Status: Spouse Entry Into Home: Stairs With Railing PT Steps Into Home: 10 PT Steps Inside Home: 0 Prior/Core FIM Prior Level of Function Functional [place] Measure 0=Not Assessed/NA 4=Minimal Assistance 1=Total Assistance 5=Supervision or Setup 2=Maximal Assistance 6=Modified [place] 3=Moderate Assistance 7=Complete IndependenceIRFPAI Quality Coding Scale 6 Independent with activity with or without an assistive device 5 Patient requires set up or clean up by helper. Patient completes activity by themselves 4 Supervision or touching assist (CGA). Clements provide cues , steadying assist 3 The helper provides less than half the effort to complete the activity 2 The helper provides more than half the effort to complete the activity 1 Dependent. The helper does all the effort to complete an activity 7 Patient refused to complete or attempt activity 9 The patient did not perform the activity before the current illness or injury 88 Not attempted due to Medical conditions or safety concerns Bed Mobility: 7 Transfers (B,C,W/C) (FIM): 7 Gait: 7 Stairs: 7 PT Evaluation-Current Subjective Pt awake in chair watching tv when PT entered room. Pt agreed to PT evaluation. Pain Numeric Pain Scale: 0-No Pain Location: No Pain Reported Objective Patient Orientation: Normal For Age Problem Solving: Fair ROM/Strength ROM Upper Extremities WNL ROM Lower Extremities WNL Strength Upper Extremities NT Strenght Lower Extremities 4/5 Integumentary/Posture Bowel Incontinence: No Bladder Incontinence: No Posture WFL Neuromuscular (Tone, Coordination, Reflexes) grossly intact Sensory Vision: Functional Hearing: Hearing Aid/Aides Sensation Right Upper Extremit: Intact Sensation Left Upper Extremity: Intact Sensation Right Lower Extremit: Intact Sensation Left Lower Extremity: Intact Transfers Functional [place] Measure 0=Not Assessed/NA 4=Minimal Assistance 1=Total Assistance 5=Supervision or Setup 2=Maximal Assistance 6=Modified [place] 3=Moderate Assistance 7=Complete IndependenceIRFPAI Quality Coding Scale 6 Independent with activity with or without an assistive device 5 Patient requires set up or clean up by helper. Patient completes activity by themselves 4 Supervision or touching assist (CGA). Clements provide cues , steadying assist 3 The helper provides less than half the effort to complete the activity 2 The helper provides more than half the effort to complete the activity 1 Dependent. The helper does all the effort to complete an activity 7 Patient refused to complete or attempt activity 9 The patient did not perform the activity before the current illness or injury 88 Not attempted due to Medical conditions or safety concerns Transfers (B, C, W/C) (FIM): 4 Scootin Rollin Roll Left to Right (QC): 5 Supine to/from Sit: 4 Sit to/from Stand: 4 Sit to Lying (QC): 4 Lying to Sitting/Side of Bed(Q: 4 Sit to Stand (QC): 4 Gait Does the Patient Walk?: Yes Mode of Locomotion: Walk Anticipated Mode of Locomotion: Walk Distance (FIM): 1=up to 49 ft Walk 10 feet (QC): 4 Walk 50 ft with 2 Turns(QC): 0 Walk 150 ft (QC): 0 Walking 10ft/uneven surface-QC: 0 Distance: 20' Gait Level of Assist: 4 Gait Persons Needed: 1 Gait Assistive Device: FWW Balance Sitting Static: Good Sitting Dynamic: Good Standing Static: Fair Standing Dynamic: Fair Assessment/Needs Pt was able to ambulate for 20' with a FWW requiring CGA. Pt stopped in the middle of hallway and PT noticed patient was distress signs and he reported he was feeling weak. Pt had a syncopal episode in hallway and was lowered to rolling chair in hallway for safety. Pt came to when being sat down in chair and was awake when returning to room and being transferred to bedside chair. Pt required max assist and two PTs were needed to move patient. Patients first BP reading was 98/60 and checked again 5 mins later and read 141/83. Patient will be monitored closely in future therapy sessions to ensure pt does not experience syncope episode again. Rehab Potential: Fair PT Mcc Goals Outside Salesman Goals PT Outside Salesman Goals Time Frame: Oct 15, 2018 Transfers (B,C,W/C) (FIM): 6 Sit to Lying (QC): 6 Lying-Sitting on Side/Bed(QC): 6 Sit to Stand (QC): 6 Rollin Roll Left to Right (QC): 6 Chair/Lhl-ch-Rojlb Xfer(QC): 6 Car Transfer (QC): 6 Does the Patient Walk: Yes Gait (FIM): 2 Gait distance (FIM): 1=301-05 ft Distance: >50' Walk 10 feet (QC): 6 Walk 10ft-Uneven Surface(QC): 6 Walk 50ft with 2 Turns (QC): 6 Walk 150 ft (QC): 6 Gait Level of Assist: 6 Gait Assistive Device: FWW PT Plan Problem List Problem List: Activity Tolerance, Functional Strength, Safety, Balance, Gait, Transfer, Bed Mobility, ROM Treatment/Plan Treatment Plan: Continue Plan of Care Treatment Plan: Bed Mobility, Concurrent Therapy, Education, Functional Activity Angelo, Functional Strength, Gait, Safety, Therapeutic Exercise, Transfers Treatment Duration: Oct 15, 2018 Frequency: 11 times per week Estimated Hrs Per Day: .25 hour per day Patient and/or Family Agrees t: Yes Time/GCodes Time In: 1451 Time Out: 1514 Total Billed Treatment Time: 23 Total Billed Treatment 1 visit EVModC -8 min FA 15 min' RUDDY BARRIENTOS PT Sep 30, 2018 15:41
--- NOTE | 2018-09-30 16:04 | Occupational Therapy Eval ---
OT Evaluation-General/PLF Medical Diagnosis Admission Date Sep 30, 2018 at 11:21 Medical Diagnosis: amyloidisis with weakness and nausea/vomiting. Onset Date: Sep 22, 2018 Therapy Diagnosis Therapy Diagnosis: decr self care, decr funct mob, dect act ryland, weakness, edema Height/Weight Height (Feet): 5 Height (Inches): 10.00 Weight (Pounds): 220 Weight (Ounces): 8.0 Precautions Precautions/Isolations: Fall Prevention, Standard Precautions Referral Physician: Nathaniel Referral Reason: Evaluation/Treatment Medical History Pertinent Medical History: CABG, CAD, HTN, Macular Degenertion, Neuropathy Additional Medical History Sinus issues, kidney disease, esophageal erosion. Prostatectomy. Current History Admitted through [facility] with confusion, hallucinations, AMS. Recent dx amyloidosis and getting chemo. Has had problems with n/v, decreased stools. Reviewed History: Yes Social History Home: Single Level Current Living Status: Spouse Entry Into Home: Stairs With Railing Steps Into Home: 10 Steps Inside Home: 0 ADL-Prior Level of Function Functional [place] Measure 0=Not Assessed/NA 4=Minimal Assistance 1=Total Assistance 5=Supervision or Setup 2=Maximal Assistance 6=Modified [place] 3=Moderate Assistance 7=Complete [place] ADL PLOF Comments Pt reported that he has been able to manage his basic self care needs and meds until April. He also did chores around the home and mowed in the early summer. 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 Pain reported discomfort in abdomen and said he was very tired from walking with PT Mental Status/Objective Patient Orientation: Person, Place, Time, Situation Attachments: IV, Telemetry Current Hand Dominance: Right Upper Extremity ROM Grossly WFL bilat Upper Extremity Strength Grossly functional. Tremors noted in R hand Edema: Bilat UE edema ADL-Treatment ADL-Current Pt recently took 20' walk with PT, transfer CGA, with FWW. He passed out and required two people max assist to return to chair. He said he can feed himself with setup but is not hungry. He brushed teeth with setup. He requests two people for toileting and toilet transfer to [facility]. He is not dressing himself and needs help to put on slipper socks. He has not showered. Pt left up in recliner , all needs met. Functional [place] Measure 0=Not Assessed/NA 4=Minimal Assistance 1=Total Assistance 5=Supervision or Setup 2=Maximal Assistance 6=Modified [place] 3=Moderate Assistance 7=Complete IndependenceIRFPAI Quality Coding Scale 6 Independent with activity with or without an assistive device 5 Patient requires set up or clean up by helper. Patient completes activity by themselves 4 Supervision or touching assist (CGA). [place] provide cues , steadying assist 3 The helper provides less than half the effort to complete the activity 2 The helper provides more than half the effort to complete the activity 1 Dependent. The helper does all the effort to complete an activity 7 Patient refused to complete or attempt activity 9 The patient did not perform the activity before the current illness or injury 88 Not attempted due to Medical conditions or safety concerns Eating (FIM): 5 (setup) Eating (QC): 5 Grooming (FIM): 5 (setup) Oral Hygiene (QC): 5 Bathing (FIM): 0 Shower/Bathe Self (QC): 88 Upper Body Dressing (FIM): 0 Upper Body Dressing (QC): 88 Lower Body Dressing (FIM): 0 Lower Body Dressing (QC): 88 On/Off Footwear (QC): 1 Toileting (FIM): 1 (2 person) Toileting Hygiene (QC): 1 Toilet/Commode Transfer (FIM): 1 (2 person) Toilet Transfer (QC): 1 Education OT Patient Education: Purpose of tx/functional activities, Rehab process Teaching Recipient: Patient Teaching Methods: Discussion Response to Teaching: Verbalize Understanding OT Short Term Goals Short Term Goals 1 OT Patient Care Provider Goals [facility]itentiary Goals Time Frame: Oct 07, 2018 Eating (FIM): 6 Eating (QC): 6 Groomin Oral Hygiene (QC): 5 Bathing(FIM): 5 Shower/Bathe Self (QC): 5 Upper Body Dressing(FIM): 5 Upper Body Dressing (QC): 5 Lower Body Dressing(FIM): 5 Lower Body Dressing (QC): 5 On/Off Footwear (QC): 5 Toileting(FIM): 5 Toileting Hygiene (QC): 5 Toilet/Commode Transfer(FIM): 5 Tub Transfer(FIM): 5 Shower Transfer(FIM): 5 Additional Goals: 1-Demonstrate ADL Tasks, 2-Verbalize Understanding, 3- ImproveStrength/Angelo 1=Demonstrate adherence to instructed precautions during ADL tasks. 2=Patient will verbalize/demonstrate understanding of assistive devices/ modifications for ADL. 3=Patient will improve strength/tolerance for activity to enable patient to perform ADL's. OT Education/Plan Problem List/Assessment Assessment: Decreased Activ Tolerance, Decreased UE Strength, Dependent Transfers, Edema, Impaired Self-Care Skills Pt would benefit from skilled OT to increase his independence in basic self care Discharge Recommendations Plan/Recommendations: Continue POC Treatment Plan/Plan of Care Treatment,Training & Education: Yes Patient would benefit from OT for education, treatment and training to promote independence in ADL's, mobility, safety and/or upper extremity function for ADL' s. Plan of Care: ADL Retraining, Functional Mobility, UE Funct Exercise/Act, UE Neuromus Re-Ed/Coord Treatment Duration: Oct 07, 2018 Frequency: 5 times per week Estimated Hrs Per Day: .5 hour per day Agreement: Yes Rehab Potential: Fair Time/GCodes Start Time: 15:06 Stop Time: 15:16 Total Time Billed (hr/min): 10 Billed Treatment Time visit, 10 minutes evaluation moderate intensity CASSY HARGROVE OT Sep 30, 2018 16:04
[2018-09-30 18:00] VITALS: BP 157/90
[2018-09-30] MEDS: TAMSULOSIN 0.4 MG (FLOMAX) CAP PO SCH (18:21)
[2018-09-30] MEDS: HYDROCORTISONE 20 MG (CORTEF) TAB PO SCH (20:24)
[2018-09-30] MEDS: ACYCLOVIR 400 MG TABLET (ZOVIRAX) PO SCH (20:24)
[2018-09-30] MEDS: POLYETHYLENE GLYCOL 17 GM (MIRALAX) PACK PO SCH (20:24)
[2018-10-01] MEDS: METOCLOPRAMIDE INJ 10 MG/2 ML (REGLAN) IVP SCH ×4 (00:24→18:10)
[2018-10-01 06:00] VITALS: BP 164/90
[2018-10-01] MEDS: ACYCLOVIR 400 MG TABLET (ZOVIRAX) PO SCH ×2 (09:30→21:38)
[2018-10-01] MEDS: POLYETHYLENE GLYCOL 17 GM (MIRALAX) PACK PO SCH ×2 (09:30→21:37)
[2018-10-01] MEDS: HYDROCORTISONE 20 MG (CORTEF) TAB PO SCH ×2 (09:31→21:40)
[2018-10-01] MEDS: BISACODYL 10 MG SUPP (DULCOLAX) PR SCH (09:31)
[2018-10-01] MEDS: ENOXAPARIN 40 MG/0.4 ML (LOVENOX) SYR SC SCH (11:29)
--- NOTE | 2018-10-01 12:43 | Progress Note-Hospitalist ---
Subjective HPI/CC On Admission Date Seen by Provider: Oct 01, 2018 Time Seen by Provider: 12:30 Subjective/Events-last exam Ration doing much better Denies any nausea MiraLAX suppository regimen is working very well He feels complete evacuation due to previous constipation issue I do believe he has the potential to go to inpatient rehabilitation on Wednesday He is able to eat and drink a little bit more Once his melatonin increase so we increased that from 3 MG to 6 MG at 2100 hours at the bedside very pleased with the situation Review of Systems General: Fatigue Objective Exam Vital Signs Vital Signs Date Time Temp Pulse Resp B/P (MAP) Pulse Ox O2 Delivery O2 Flow Rate FiO2 10/01/18 09:00 93 Room Air 10/01/18 06:00 97.7 83 16 164/90 (114) Capillary Refill : General Appearance: No Apparent Distress, WD/WN, Chronically ill, Other (much improved) Respiratory: Chest Non Tender, Lungs Clear, Normal Breath Sounds, No Accessory Muscle Use, No Respiratory Distress Cardiovascular: Regular Rate, Rhythm, No Gallop, No JVD, No Murmur, Normal Peripheral Pulses Gastrointestinal: Normal Bowel Sounds, No Organomegaly, No Pulsatile Mass, Non Tender, Soft Extremity: Pedal Edema Neurologic/Psychiatric: Alert, Oriented x3, No Motor/Sensory Deficits, Normal Mood/Affect Skin: Normal Color, Warm/Dry Results/Procedures Lab Patient resulted labs reviewed. Assessment/Plan Assessment and Plan Assess & Plan/Chief Complaint Assessment: Severe fecal impaction with colon impaction resolving Urinary retention Hyponatremia-improved Severe and refractory nausea likely due to fecal impaction now resolved Insomnia Amyloidosis Anasarca Plan: Continue bowel regimen Insomnia Monitor labs Doing better IRF Wednesday Diagnosis/Problems Diagnosis/Problems (1) Amyloidosis Status: Chronic Qualifiers: Amyloidosis type: other amyloidosis Qualified Codes: E85.89 - Other amyloidosis (2) Insomnia Status: Acute Qualifiers: Insomnia type: primary Qualified Codes: F51.01 - Primary insomnia (3) Fecal impaction Status: Resolved Resolution Date/Time: 10/01/18 @ 13:31 (4) Urinary retention Status: Resolved Resolution Date/Time: 10/01/18 @ 13:31 (5) Refractory nausea and vomiting Status: Resolved Resolution Date/Time: 10/01/18 @ 13:31 (6) Adrenal insufficiency Status: Chronic (7) SIADH (syndrome of inappropriate ADH production) Status: Acute (8) Moderate protein-energy malnutrition Status: Acute (9) Scrotal edema Status: Acute (10) Poor prognosis Status: Acute (11) Weakness Status: Acute Clinical Quality Measures DVT/VTE Risk/Contraindication: Risk Factor Score Per Nursin SHOBHA GATICA DO Oct 01, 2018 12:43
--- NOTE | 2018-10-01 13:48 | Physical Therapy Daily Note ---
PT Daily Note-Current Subjective Pt states that he is tired but is willing to work with therapy at this time. Pt reports he is so weak and is concerned about going to the rehab unit. States he feels better about it now since discussion and understanding it more and [place] since spouse went and talked to staff on the unit about it. Appearance 10:09am Pt laying supine in bed and states is too tired and requesting to have therapy a little later, and nsg state that pt had been up out of bed for 2 hours and had just laid down. 12:25pm Pt sitting on bedpan, requesting therapy later so that he could have a bm 1:25pm Pt laying supine in bed awake with family present before and at end of therapy session Transfers Functional [place] Measure 0=Not Assessed/NA 4=Minimal Assistance 1=Total Assistance 5=Supervision or Setup 2=Maximal Assistance 6=Modified [place] 3=Moderate Assistance 7=Complete IndependenceIRFPAI Quality Coding Scale 6 Independent with activity with or without an assistive device 5 Patient requires set up or clean up by helper. Patient completes activity by themselves 4 Supervision or touching assist (CGA). [place] provide cues , steadying assist 3 The helper provides less than half the effort to complete the activity 2 The helper provides more than half the effort to complete the activity 1 Dependent. The helper does all the effort to complete an activity 7 Patient refused to complete or attempt activity 9 The patient did not perform the activity before the current illness or injury 88 Not attempted due to Medical conditions or safety concerns Transfers (B, C, W/C) (FIM): 4 Scootin Rollin Roll Left to Right (QC): 5 Supine to/from Sit: 5 Sit to/from Stand: 5 Sit to Lying (QC): 5 Sit to Stand (QC): 5 Pt fatigues easily with all activity Weight Bearing Right Lower Extremity: Right Full Weight Bearing Left Lower Extremity: Left Full Weight Bearing Exercises Seated Therapy Exercises: Ankle pumps, Sit to stand, Long arc quads Seated Reps: 10 Standing: Heel/toe raises, Marching, Mini squats, Sit to Stand Standing Reps: 10 Treatments transfer training, exercise Assessment Current Status: Fair Progress pt fatigues easily and requires some rest breaks PT Long-Term Goals Board Certified Arts Therapist Goals PT Board Certified Arts Therapist Goals Time Frame: Oct 15, 2018 Transfers (B,C,W/C) (FIM): 6 Sit to Lying (QC): 6 Lying-Sitting on Side/Bed(QC): 6 Sit to Stand (QC): 6 Rollin Roll Left to Right (QC): 6 Chair/Jjg-qo-Jjvae Xfer(QC): 6 Car Transfer (QC): 6 Does the Patient Walk: Yes Gait (FIM): 2 Gait distance (FIM): 2=831-66 ft Distance: >50' Walk 10 feet (QC): 6 Walk 10ft-Uneven Surface(QC): 6 Walk 50ft with 2 Turns (QC): 6 Walk 150 ft (QC): 6 Gait Level of Assist: 6 Gait Assistive Device: FWW PT Plan Problem List Problem List: Activity Tolerance, Functional Strength, Safety, Balance, Gait, Transfer, Bed Mobility Treatment/Plan Treatment Plan: Continue Plan of Care Treatment Plan: Bed Mobility, Concurrent Therapy, Education, Functional Activity Angelo, Functional Strength, Gait, Safety, Therapeutic Exercise, Transfers Treatment Duration: Oct 15, 2018 Frequency: 11 times per week Estimated Hrs Per Day: .25 hour per day Patient and/or Family Agrees t: Yes Safety Risks/Education Patient Education: Transfer Techniques, Safety Issues Teaching Recipient: Patient Teaching Methods: Discussion Response to Teaching: Verbalize Understanding, Return Demonstration, Reinforcement Needed Time/GCodes Time In: 125 Time Out: 140 Total Billed Treatment Time: 15 Total Billed Treatment 1 Visit FA x1 RODNEY PALACIOS MATERIALS PLANNER/PRODUCTION PLANNER Oct 01, 2018 13:48
[2018-10-01 17:59] VITALS: BP 129/88
[2018-10-01] MEDS: TAMSULOSIN 0.4 MG (FLOMAX) CAP PO SCH (18:10)
[2018-10-01] MEDS: MELATONIN 3 MG TABLET PO SCH (21:38)
[2018-10-02] MEDS: METOCLOPRAMIDE INJ 10 MG/2 ML (REGLAN) IVP SCH ×5 (00:08→23:26)
[2018-10-02 06:00] VITALS: BP 125/81
[2018-10-02] MEDS: BISACODYL 10 MG SUPP (DULCOLAX) PR SCH (09:20)
--- NOTE | 2018-10-02 09:29 | Progress Note (SOAP) ---
Subjective Date Seen by a Provider: Oct 02, 2018 Time Seen by a Provider: 09:15 Subjective/Events-last exam slowly improving physical capacity. tolerating some diet yet still states intermittent nausea. having multiple BM's. Objective Exam Vital Signs Date Time Temp Pulse Resp B/P (MAP) Pulse Ox O2 Delivery O2 Flow Rate FiO2 10/02/18 06:00 98.0 79 20 125/81 (96) Room Air 10/01/18 21:00 93 Room Air 10/01/18 19:39 Room Air 10/01/18 17:59 96.8 84 20 129/88 (102) 94 Room Air I & O 10/02/18 07:00 Intake Total 2060 ml Output Total 600 ml Balance 1460 ml Capillary Refill : General Appearance: No Apparent Distress HEENT: PERRL/EOMI Neck: Full Range of Motion Respiratory: Chest Non Tender, Normal Breath Sounds Cardiovascular: Regular Rate, Rhythm Gastrointestinal: normal bowel sounds, non tender, soft Extremity: Normal Capillary Refill Neurologic/Psychiatric: Alert, Oriented x3 Skin: Normal Color Lymphatic: No Adenopathy Assessment/Plan Assessment/Plan Assess & Plan/Chief Complaint amyloidisis with weakness and nausea/vomiting. very slow improvement daily. SWB status now. continue facilitating BM's. continue ambulation as much as possible. diet as tolerated. tentative plan rehab possible wednesday. Clinical Quality Measures DVT/VTE Risk/Contraindication: Risk Factor Score Per Nursin ANA MENDEZ MD Oct 02, 2018 09:29
[2018-10-02] MEDS ORDERED: ALPRAZolam 0.25 MG (XANAX) TAB PO PRN (10:45)
--- NOTE | 2018-10-02 12:06 | Progress Note-Hospitalist ---
Subjective HPI/CC On Admission Date Seen by Provider: Oct 02, 2018 Time Seen by Provider: 11:00 Subjective/Events-last exam Patient doing well Ate a good breakfast No nausea Having multiple BMs Hopefully inpatient rehabilitation tomorrow Labs are pending but Dr. Romero ordered Did have delirium last night when he stripped off all his clothes and talked through the night but has been taking a nap and is currently sleeping Review of Systems General: Fatigue Neurological: Confusion (at night) Objective Exam Vital Signs Vital Signs Date Time Temp Pulse Resp B/P (MAP) Pulse Ox O2 Delivery O2 Flow Rate FiO2 10/02/18 09:00 93 Room Air 10/02/18 06:00 98.0 79 20 125/81 (96) Capillary Refill : General Appearance: No Apparent Distress, WD/WN, Chronically ill, Other ( sleeping) Respiratory: Chest Non Tender, Lungs Clear, Normal Breath Sounds, No Accessory Muscle Use, No Respiratory Distress Cardiovascular: Regular Rate, Rhythm, No Edema, No Gallop, No JVD, No Murmur, Normal Peripheral Pulses Extremity: Pedal Edema Skin: Normal Color, Warm/Dry Results/Procedures Lab Patient resulted labs reviewed. 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.89 - Other amyloidosis (2) Insomnia Status: Acute Qualifiers: Insomnia type: primary Qualified Codes: 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 - Primary insomnia (3) Fecal impaction Status: Resolved Resolution Date/Time: 10/01/18 @ 13:31 (4) Urinary retention Status: Resolved Resolution Date/Time: 10/01/18 @ 13:31 (5) Refractory nausea and vomiting Status: Resolved Resolution Date/Time: 10/01/18 @ 13:31 (6) Adrenal insufficiency Status: Chronic (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
[2018-10-02] MEDS: ACYCLOVIR 400 MG TABLET (ZOVIRAX) PO SCH ×2 (12:40→20:12)
[2018-10-02] MEDS: HYDROCORTISONE 20 MG (CORTEF) TAB PO SCH ×2 (12:41→20:12)
[2018-10-02] MEDS: ENOXAPARIN 40 MG/0.4 ML (LOVENOX) SYR SC SCH (12:42)
[2018-10-02] MEDS: POLYETHYLENE GLYCOL 17 GM (MIRALAX) PACK PO SCH ×2 (12:42→20:11)
[2018-10-02 13:00] LABS: HEMOGLOBIN 10.4 G/DL (13.3-17.7); MEAN PLATELET VOLUME 11.3 FL (7.4-10.4); RED BLOOD COUNT 3.19 10^6/uL (4.35-5.85); RED CELL DISTRIBUTION WIDTH 13.6 % (10.0-14.5); WHITE BLOOD COUNT 7.9 10^3/uL (4.3-11.0)
[2018-10-02 13:20] LABS: BUN/CREATININE RATIO 32; CALCIUM 8.2 MG/DL (8.5-10.1); CARBON DIOXIDE 25 MMOL/L (21-32); CHLORIDE 98 MMOL/L (98-107); CREATININE SERUM 0.81 MG/DL (0.60-1.30); GFR ESTIMATED > 60; GLUCOSE 86 MG/DL (70-105); POTASSIUM 3.7 MMOL/L (3.6-5.0); SODIUM 129 MMOL/L (135-145)
[2018-10-02] MEDS: TAMSULOSIN 0.4 MG (FLOMAX) CAP PO SCH (18:25)
[2018-10-02 18:30] VITALS: BP 138/81
[2018-10-02] MEDS: MELATONIN 3 MG TABLET PO SCH (20:12)
[2018-10-03] MEDS: METOCLOPRAMIDE INJ 10 MG/2 ML (REGLAN) IVP SCH ×3 (05:04→17:55)
[2018-10-03 05:10] LABS: BASOPHILS % (AUTO) 0 % (0-10); EOSINOPHILS % (AUTO) 0 % (0-10); HEMATOCRIT 30 % (40-54); HEMOGLOBIN 10.4 G/DL (13.3-17.7); LYMPHOCYTES # (AUTO) 0.5 X 10^3 (1.0-4.0); LYMPHOCYTES % (AUTO) 6 % (12-44); MEAN CORPUSCULAR HEMOGLOBIN 32 PG (25-34); MEAN CORPUSCULAR HGB CONC 34 G/DL (32-36); MEAN CORPUSCULAR VOLUME 93 FL (80-99); MEAN PLATELET VOLUME 11.2 FL (7.4-10.4); MONOCYTES # (AUTO) 0.5 X 10^3 (0.0-1.0); MONOCYTES % (AUTO) 6 % (0-12); NEUTROPHILS # (AUTO) 6.8 X 10^3 (1.8-7.8); NEUTROPHILS % (AUTO) 88 % (42-75); PLATELET COUNT 158 10^3/uL (130-400); RED BLOOD COUNT 3.26 10^6/uL (4.35-5.85); RED CELL DISTRIBUTION WIDTH 13.2 % (10.0-14.5); WHITE BLOOD COUNT 7.8 10^3/uL (4.3-11.0)
[2018-10-03 05:34] LABS: ALANINE AMINOTRANSFERASE 24 U/L (0-55); ALBUMIN 2.3 GM/DL (3.2-4.5); ALKALINE PHOSPHATASE 59 U/L (40-136); BILIRUBIN,TOTAL 0.6 MG/DL (0.1-1.0); BUN/CREATININE RATIO 31; CARBON DIOXIDE 25 MMOL/L (21-32); CHLORIDE 98 MMOL/L (98-107); GFR ESTIMATED > 60; GLUCOSE 101 MG/DL (70-105); POTASSIUM 3.8 MMOL/L (3.6-5.0); SODIUM 130 MMOL/L (135-145); TOTAL PROTEIN 3.1 GM/DL (6.4-8.2)
[2018-10-03 06:00] VITALS: BP 115/75
[2018-10-03] MEDS: POLYETHYLENE GLYCOL 17 GM (MIRALAX) PACK PO SCH ×2 (08:59→22:17)
[2018-10-03] MEDS: ACYCLOVIR 400 MG TABLET (ZOVIRAX) PO SCH ×2 (08:59→22:15)
[2018-10-03] MEDS: HYDROCORTISONE 20 MG (CORTEF) TAB PO SCH ×2 (08:59→22:16)
--- NOTE | 2018-10-03 09:22 | Discharge Summary-Hospitalist ---
SHOBHA GATICA DO 10/03/18 0922: Diagnosis/Chief Complaint Date of Admission Sep 30, 2018 at 11:21 Date of Discharge Discharge Date: Oct 03, 2018 Discharge Diagnosis (1) Amyloidosis Status: Chronic (2) Insomnia Status: Acute (3) Fecal impaction Status: Resolved (4) Urinary retention Status: Resolved (5) Refractory nausea and vomiting Status: Resolved (6) Adrenal insufficiency Status: Chronic (7) SIADH (syndrome of inappropriate ADH production) Status: Acute (8) Moderate protein-energy malnutrition Status: Acute (9) Scrotal edema Status: Acute (10) Poor prognosis Status: Acute (11) Weakness Status: Acute (12) Delirium Status: Acute Assessment & Plan: at night only (13) Vasovagal episode Status: Acute (14) Orthostasis Status: Acute Discharge Summary Discharge Physical Exam Allergies: Coded Allergies: No Known Drug Allergies (Unverified , 09/23/18) Vitals & I&Os Vital Signs Date Time Temp Pulse Resp B/P (MAP) Pulse Ox O2 Delivery O2 Flow Rate FiO2 10/04/18 08:00 Room Air 10/04/18 06:07 97.2 70 18 138/83 (101) 98 General Appearance: No Apparent Distress, WD/WN, Chronically ill Respiratory: Chest Non Tender, Lungs Clear, Normal Breath Sounds, No Accessory Muscle Use, No Respiratory Distress Cardiovascular: Regular Rate, Rhythm, No Edema, No Gallop, No JVD, No Murmur, Normal Peripheral Pulses Neurologic/Psychiatric: Alert, Oriented x3, No Motor/Sensory Deficits, Normal Mood/Affect Hospital Course Hospital course: patient had a lengthy hospital course but somewhat brief SB course due to severe debility and severe nausea and severe fecal impaction and poor reserve due to chemotherapy for amyloidosis. He was optimized while on swing bed but due to poor reserve and orthostasis and vasovagal syncopal episodes he did not qualify for IRF so he was DC to [facility] and PCP Dr Gu was updated. Poor prognosis overall. Labs (last 24 hrs) Patient resulted labs reviewed. Pending Labs Discussion & Recommendations Discharge Planning: <30 minutes discharge planning Discharge Home Medications: Active Scripts Active Bethanechol Chloride 10 Mg Tablet 10 Mg PO ACHS 30 Days Flomax (Tamsulosin HCl) 0.4 Mg Cap 0.4 Mg PO DAILY@1800 30 Days Hydrocodone/Acetaminophen 5/325mg Tablet (Acetaminophen/Hydrocodone Bitart) 1 Tab Tab 1 Tab PO Q4H PRN Alprazolam 0.25 Mg Tablet 0.75 Mg PO Q6HR PRN Bisac-Evac (Bisacodyl) 10 Mg Supp.rect 10 Mg MT DAILY 30 Days Melatonin 3 Mg Tablet 6 Mg PO HS 30 Days Hydrocortisone 20 Mg Tablet 30 Mg PO HS 30 Days Hydrocortisone 20 Mg Tablet 30 Mg PO DAILY 30 Days Fludrocortisone Acetate 0.1 Mg Tab 0.1 Mg PO DAILY 30 Days Polyethylene Glycol 3350 17 Gm Powd.pack 8.5 Gm PO BID 14 Days Enoxaparin Sodium 40 Mg/0.4 Ml Syringe 40 Mg SC Q24H 14 Days Reported Preservision Areds 2 Softgel (Vit C/E/Zn/Coppr/Lutein/Zeaxan) 1 Each Capsule 1 Cap PO BID Vitamin D2 (Ergocalciferol (Vitamin D2)) 50,000 Unit Capsule 50,000 Units PO TUTH Rosuvastatin Calcium 10 Mg Tablet 20 Mg PO HS TAKES 2 (10MG) TABLETS Ondansetron HCl 8 Mg Tablet 8 Mg PO Q8H PRN Acyclovir 400 Mg Tablet 400 Mg PO BID Furosemide 40 Mg Tablet 40 Mg PO DAILY Instructions to patient/family Please see electronic discharge instructions given to patient. Clinical Quality Measures DVT/VTE Risk/Contraindication: Risk Factor Score Per Nursin CARLOS EDUARDO ERNST MED STUDENT 10/03/18 1005: Discharge Summary Discharge Physical Exam Allergies: Coded Allergies: No Known Drug Allergies (Unverified , 09/23/18) General Appearance: No Apparent Distress, WD/WN Respiratory: Chest Non Tender, Lungs Clear, Normal Breath Sounds Cardiovascular: Regular Rate, Rhythm, No Edema, No Gallop, No JVD, No Murmur Skin: Normal Color, Warm/Dry Neurologic/Psychiatric: Alert, Oriented x3, No Motor/Sensory Deficits, Normal Mood/Affect Hospital Course The patient is a 78 y/o male that presented to the ER at [facility] for confusion, syncope, and altered mental status. He had recently started a chemotherapy regimen of cytaxin and velcade for amyloidosis with Dr. Markham. He was found to be severely hyponatremic at 117 and was admitted for management and further evaluation. He had a poor appetite and was feeling very weak the next day. On the third day of admission the patient's WBC count began to rise and he was started on Vancomycin and Zosyn for suspected pneumonia. His hyponatremia began to improve over the course of several days. He began to have significant edema and was started on lasix. He went several days without a bowel movement with symptoms of nausea and vomiting and was suspected to have a fecal impaction. Dr. Romero was consulted and advised conservative management. The bowel impaction resolved on the and the patient began to regain his appetite and nausea/vomiting resolved. He will be discharged and admitted to [facility] rehabilitation for physical therapy. Problem Qualifiers (1) Amyloidosis: Amyloidosis type: other amyloidosis Qualified Codes: E85.89 - Other amyloidosis (2) Insomnia: Insomnia type: primary Qualified Codes: F51.01 - Primary insomnia SHOBHA GATICA DO Oct 03, 2018 09:22 CARLOS EDUARDO ERNST MED STUDENT Oct 03, 2018 10:05
--- NOTE | 2018-10-03 09:41 | Progress Note-Urology ---
Progress Note-Urology Progress Notes/Assess & Plan Progress/Assessment & Plan HAD RETENTION LAST NIGHT AND COUDE CATH INSERTED, TO IP REHAB TODAY. PLAN KEEP FLOMAX, START URECHOLINE, TOV TOMORROW. ALL FULLY EXPLAINED TO PATIENT AND Final Diagnosis URINE RETENTION SALINAS CABELLO MD Oct 03, 2018 09:41
--- NOTE | 2018-10-03 10:01 | Progress Note-Hospitalist ---
Subjective HPI/CC On Admission Date Seen by Provider: Oct 03, 2018 Time Seen by Provider: 09:00 Subjective/Events-last exam Patient had been in preparation for inpatient rehabilitation in the head fluid in all discharge orders but then he had a vasovagal syncopal episode and he has had 2 of those episodes yesterday with documented hypotension so he will be required to go to [facility] prior to returning to inpatient rehabilitation for additional strengthening. Will start Florinef SIMA hose and compression therapy with Donte wraps initiated to help with orthostasis Had a large bowel movement prior to this episode Updated Review of Systems Neurological: Weakness, Numbness Objective Exam Vital Signs Vital Signs Date Time Temp Pulse Resp B/P (MAP) Pulse Ox O2 Delivery O2 Flow Rate FiO2 10/03/18 06:55 Room Air 10/03/18 06:00 97.0 77 18 115/75 (88) 93 Capillary Refill : General Appearance: No Apparent Distress, WD/WN, Chronically ill Respiratory: Chest Non Tender, Lungs Clear, Normal Breath Sounds, No Accessory Muscle Use, No Respiratory Distress Cardiovascular: Regular Rate, Rhythm, No Edema, No Gallop, No JVD, No Murmur, Normal Peripheral Pulses Neurologic/Psychiatric: Alert, Oriented x3, No Motor/Sensory Deficits, Normal Mood/Affect Results/Procedures Lab Laboratory Tests 10/02/18 12:53 10/03/18 05:00 Patient resulted labs reviewed. Assessment/Plan Assessment and Plan Assess & Plan/Chief Complaint Assessment: Vasovagal syncopal episode precluding DC to IRF today and placed on Florinef and SIMA's and DONTE wraps Severe fecal impaction with colon impaction resolved Urinary retention requiring catheter placement again Urology consulted Hyponatremia-stable Severe and refractory nausea likely due to fecal impaction now resolved Insomnia Amyloidosis Anasarca Delirium at night Plan: Continue bowel regimen Monitor labs Florinef SIMA/DONTE wraps to help with orthostasis Needs NHP due to inability to meet 3 hours of therapy requirement in IRF Diagnosis/Problems Diagnosis/Problems (1) Vasovagal episode Status: Acute (2) Amyloidosis Status: Chronic Qualifiers: Amyloidosis type: other amyloidosis Qualified Codes: E85.89 - Other amyloidosis (3) Insomnia Status: Acute Qualifiers: Insomnia type: primary Qualified Codes: F51.01 - Primary insomnia (4) Fecal impaction Status: Resolved Resolution Date/Time: 10/01/18 @ 13:31 (5) Urinary retention Status: Resolved Resolution Date/Time: 10/01/18 @ 13:31 (6) Refractory nausea and vomiting Status: Resolved Resolution Date/Time: 10/01/18 @ 13:31 (7) Adrenal insufficiency Status: Chronic (8) SIADH (syndrome of inappropriate ADH production) Status: Acute (9) Moderate protein-energy malnutrition Status: Acute (10) Scrotal edema Status: Acute (11) Poor prognosis Status: Acute (12) Weakness Status: Acute (13) Delirium Status: Acute Assessment & Plan: at night only (14) Orthostasis Status: Acute Clinical Quality Measures DVT/VTE Risk/Contraindication: Risk Factor Score Per Nursin SHOBHA GATICA DO Oct 03, 2018 10:01
[2018-10-03] MEDS: BISACODYL 10 MG SUPP (DULCOLAX) PR SCH (10:14)
[2018-10-03] MEDS ORDERED: FLDR.1T PO (10:23)
[2018-10-03] MEDS ORDERED: BISA10SU12 PR (10:23)
[2018-10-03] MEDS ORDERED: POLY17PO31 PO (10:23)
[2018-10-03] MEDS ORDERED: ENOX40DI8 SC (10:23)
[2018-10-03] MEDS ORDERED: TAMS0.4C98 PO (10:23)
[2018-10-03] MEDS ORDERED: HYDR20TA2 PO ×2 (10:23)
[2018-10-03] MEDS ORDERED: BETH10TA PO (10:23)
[2018-10-03] MEDS ORDERED: ALPR0.254 PO (10:23)
[2018-10-03] MEDS ORDERED: ACHD5005 PO (10:23)
[2018-10-03] MEDS ORDERED: MELA3TAB PO (10:23)
--- NOTE | 2018-10-03 10:25 | Discharge Inst-Skilled Nursing ---
Discharge Inst-Skilled NF Patient Instructions Patient Problems: Severe debility Orthostatic hypotension Vasovagal syncope Anasarca Scrotal edema SIADH Amyloidosis unable to tolerate chemotherapy Status post severe fecal impaction manage medication no surgery Goal: Strengthen enough to undergo chemotherapy for amyloidosis Consult/Follow Up/Orders Follow Up Appt.: Admitted to Dr. Gu [facility] NF Admit to: [facility] [place] Certification (SNF) I certify that SNF services are required to be given on an inpatient basis because of the above named patient's need for correction care on a continuing basis for the conditions(s) for which he/she was receiving inpatient hospital services prior to his/her transfer to the SNF. Prison Facility Order: Nursing Services, [employer]-Evaluate & Treat, Physical Therapy-Evaluate & Treat Discharge Diet: No Restrictions Daily Activity as Tolerated: Yes New & Resume Previous Orders Ami Armstrong Oct 03, 2018 10:24 AMI ARMSTRONG DO Oct 03, 2018 10:25
[2018-10-03] MEDS: FLUDROCORTISONE 0.1 MG (FLORINEF) TAB PO SCH (10:31)
[2018-10-03] MEDS ORDERED: BETHANECHOL 10 MG (URECHOLINE) TAB PO SCH (11:00)
[2018-10-03] MEDS: ENOXAPARIN 40 MG/0.4 ML (LOVENOX) SYR SC SCH (11:10)
[2018-10-03] MEDS: BETHANECHOL 10 MG (URECHOLINE) TAB PO SCH ×3 (11:11→22:15)
--- NOTE | 2018-10-03 14:33 | Physical Therapy Daily Note ---
PT Daily Note-Current Subjective Pt awake in bed watching tv when PT arrived. Pt agreed to get up and transfer to chair after encouragement from . Pain Numeric Pain Scale: 0-No Pain Location: No Pain Reported Mental Status Patient Orientation: Normal For Age Attachments: Guan Catheter Transfers Functional [place] Measure 0=Not Assessed/NA 4=Minimal Assistance 1=Total Assistance 5=Supervision or Setup 2=Maximal Assistance 6=Modified [place] 3=Moderate Assistance 7=Complete IndependenceIRFPAI Quality Coding Scale 6 Independent with activity with or without an assistive device 5 Patient requires set up or clean up by helper. Patient completes activity by themselves 4 Supervision or touching assist (CGA). [place] provide cues , steadying assist 3 The helper provides less than half the effort to complete the activity 2 The helper provides more than half the effort to complete the activity 1 Dependent. The helper does all the effort to complete an activity 7 Patient refused to complete or attempt activity 9 The patient did not perform the activity before the current illness or injury 88 Not attempted due to Medical conditions or safety concerns Transfers (B, C, W/C) (FIM): 4 Scootin Rollin Supine to/from Sit: 5 Sit to/from Stand: 4 Bed to/from Chair: 4 Weight Bearing Right Lower Extremity: Right Full Weight Bearing Left Lower Extremity: Left Full Weight Bearing Assessment Pt is able to get himself to edge of bed with SBA. Pts BP is taken and has an initial reading of 83/50. Patient is then CGA when standing up and transferring over to bedside chair. Patient states he is feeling fine and does not experience any light headed symptoms. Patients BP is taken again when sitting in bedside chair. Patients first value at 5 mins is 80/48 and then again at 10 mins and is 94/52. Patients treatment over the past visits has been ambulation or or transfers over to bedside chair. Patient needs to be monitored closely with any body position change to avoid pushing syncope episode. Patient should always be CGA and caution she be practiced when ever treating patient. PT Android Software Engineer Goals Android Software Engineer Goals PT Retirement Goals Time Frame: Oct 15, 2018 Transfers (B,C,W/C) (FIM): 6 Sit to Lying (QC): 6 Lying-Sitting on Side/Bed(QC): 6 Sit to Stand (QC): 6 Rollin Roll Left to Right (QC): 6 Chair/Hzp-tn-Bvnla Xfer(QC): 6 Car Transfer (QC): 6 Does the Patient Walk: Yes Gait (FIM): 2 Gait distance (FIM): 6=783-56 ft Distance: >50' Walk 10 feet (QC): 6 Walk 10ft-Uneven Surface(QC): 6 Walk 50ft with 2 Turns (QC): 6 Walk 150 ft (QC): 6 Gait Level of Assist: 6 Gait Assistive Device: FWW PT Plan Problem List Problem List: Activity Tolerance, Functional Strength, Safety, Balance, Gait, Transfer, Bed Mobility, ROM Treatment/Plan Treatment Plan: Continue Plan of Care Treatment Plan: Bed Mobility, Concurrent Therapy, Education, Functional Activity Angel[place], Functional Strength, Gait, Safety, Therapeutic Exercise, Transfers Treatment Duration: Oct 15, 2018 Frequency: 11 times per week Estimated Hrs Per Day: .25 hour per day Patient and/or Family Agrees t: Yes Time/GCodes Time In: 1315 Time Out: 1338 Total Billed Treatment Time: 23 Total Billed Treatment 1 Visit FA x 2 - 23' RUDDY BARRIENTOS PT Oct 03, 2018 14:33
--- NOTE | 2018-10-03 14:45 | Therapy Team Discharge Summary ---
Therapy Discharge Summary Discharge Recommendations Date of Discharge 10-03-18 Therapy D/C Recommendations: [facility] ([facility]) Occupational Therapy Pt. evaluated for SWB status and goals written. Due to syncopal episodes and change in medical status, pt. is discharging to nursing home facility for ongoing care. No goals met as they have not been addressed due to pt. transfer. Decreased Activ Tolerance, Decreased UE Strength, Dependent Transfers, Impaired I ADL's, Impaired Self-Care Skills PT Chief Engineer Production Goals Chcf Goals PT [facility] Goals Time Frame: Oct 15, 2018 Transfers (B,C,W/C) (FIM): 6 Sit to Lying (QC): 6 Lying-Sitting on Side/Bed(QC): 6 Sit to Stand (QC): 6 Rollin Chair/Txz-mf-Yoype Xfer(QC): 6 Does the Patient Walk: Yes Gait (FIM): 2 Gait distance (FIM): 6=796-83 ft Distance: >50' Walk 50ft with 2 Turns (QC): 6 Walk 150 ft (QC): 6 Gait Level of Assist: 6 Gait Assistive Device: FWW OT Chief Engineer Production Goals Chief Engineer Production Goals Time Frame: Oct 07, 2018 Eating (FIM): 6 (not met) Eating (QC): 6 (not met) Groomin (not met) Oral Hygiene (QC): 5 (not met) Bathing(FIM): 5 (not met) Upper Body Dressing(FIM): 5 (not met) Lower Body Dressing(FIM): 5 (not met) Toileting(FIM): 5 (not met) Toileting Hygiene (QC): 5 (not met) Toilet/Commode Transfer(FIM): 5 (not met) Tub Transfer(FIM): 5 (not met) Shower Transfer(FIM): 5 (not met) Additional Goals: 1-Demonstrate ADL Tasks, 2-Verbalize Understanding, 3- ImproveStrength/Angelo 1=Demonstrate adherence to instructed precautions during ADL tasks. 2=Patient will verbalize/demonstrate understanding of assistive devices/ modifications for ADL. 3=Patient will improve strength/tolerance for activity to enable patient to perform ADL's. MARGO JOSEPH OT Oct 03, 2018 14:45
--- NOTE | 2018-10-03 14:52 | Therapy Team Discharge Summary ---
Therapy Discharge Summary Discharge Recommendations Date of Discharge Therapy D/C Recommendations: [facility] (TCU/NH) Physical Therapy Pt is able to get himself to edge of bed with SBA. Pts BP is taken and has an initial reading of 83/50. Patient is then CGA when standing up and transferring over to bedside chair. Patient states he is feeling fine and does not experience any light headed symptoms. Patients BP is taken again when sitting in bedside chair. Patients first value at 5 mins is 80/48 and then again at 10 mins and is 94/52. Patients treatment over the past visits has been ambulation or or transfers over to bedside chair. Patient needs to be monitored closely with any body position change to avoid pushing syncope episode. Patient should always be CGA and caution she be practiced when ever treating patient. Patient will benefit from continued therapy to ensure safe return to home at maximum LOF. Goals addressed, however, not attained. Occupational Therapy Decreased Activ Tolerance, Decreased UE Strength, Dependent Transfers, Impaired I ADL's, Impaired Self-Care Skills PT Patient Support Tech Goals Care Home Goals PT Care Home Goals Time Frame: Oct 15, 2018 Transfers (B,C,W/C) (FIM): 6 Sit to Lying (QC): 6 Lying-Sitting on Side/Bed(QC): 6 Sit to Stand (QC): 6 Rollin Chair/Zjg-kv-Zebuw Xfer(QC): 6 Does the Patient Walk: Yes Gait (FIM): 2 Gait distance (FIM): 6=102-03 ft Distance: >50' Walk 50ft with 2 Turns (QC): 6 Walk 150 ft (QC): 6 Gait Level of Assist: 6 Gait Assistive Device: FWW OT Patient Support Tech Goals Patient Support Tech Goals Time Frame: Oct 07, 2018 Eating (FIM): 6 (not met) Eating (QC): 6 (not met) Groomin (not met) Oral Hygiene (QC): 5 (not met) Bathing(FIM): 5 (not met) Upper Body Dressing(FIM): 5 (not met) Lower Body Dressing(FIM): 5 (not met) Toileting(FIM): 5 (not met) Toileting Hygiene (QC): 5 (not met) Toilet/Commode Transfer(FIM): 5 (not met) Tub Transfer(FIM): 5 (not met) Shower Transfer(FIM): 5 (not met) Additional Goals: 1-Demonstrate ADL Tasks, 2-Verbalize Understanding, 3- ImproveStrength/Angelo 1=Demonstrate adherence to instructed precautions during ADL tasks. 2=Patient will verbalize/demonstrate understanding of assistive devices/ modifications for ADL. 3=Patient will improve strength/tolerance for activity to enable patient to perform ADL's. RUDDY BARRIENTOS PT Oct 03, 2018 14:52
[2018-10-03 17:20] VITALS: BP 119/80
[2018-10-03] MEDS: TAMSULOSIN 0.4 MG (FLOMAX) CAP PO SCH (22:15)
[2018-10-03] MEDS: MELATONIN 3 MG TABLET PO SCH (22:16)
[2018-10-04] MEDS: METOCLOPRAMIDE INJ 10 MG/2 ML (REGLAN) IVP SCH ×2 (01:24→06:43)
[2018-10-04 06:07] VITALS: BP 138/83
[2018-10-04] MEDS: BETHANECHOL 10 MG (URECHOLINE) TAB PO SCH (06:43)
--- NOTE | 2018-10-04 08:51 | Progress Note-Urology ---
Progress Note-Urology Progress Notes/Assess & Plan Progress/Assessment & Plan TOLERATES URECHOLINE WELL. TOV PRIOR TO DISCHARGE TO THE [facility] Final Diagnosis URINE RETENTION SALINAS CABELLO MD Oct 04, 2018 8:51 am
[2018-10-04] MEDS: FLUDROCORTISONE 0.1 MG (FLORINEF) TAB PO SCH (08:55)
[2018-10-04] MEDS: ACYCLOVIR 400 MG TABLET (ZOVIRAX) PO SCH (08:55)
[2018-10-04] MEDS: HYDROCORTISONE 20 MG (CORTEF) TAB PO SCH (08:55)
[2018-10-04] MEDS: POLYETHYLENE GLYCOL 17 GM (MIRALAX) PACK PO SCH (08:55)
[2018-10-04] MEDS: BISACODYL 10 MG SUPP (DULCOLAX) PR SCH (08:56)
== END 2018-10-04 09:50 | DRG 948 ==
LOC: 4TH 09-30 11:21
PROVIDERS: ADMIT Internal Medicine; ATTEND Internal Medicine
DX: R53.81 Other malaise (principal); I95.1 Orthostatic hypotension; E85.89 Other amyloidosis; E87.1 Hypo-osmolality and hyponatremia; E27.40 Unspecified adrenocortical insufficiency; E44.0 Moderate protein-calorie malnutrition; K56.41 Fecal impaction; R33.9 Retention of urine, unspecified; F51.01 Primary insomnia; R60.1 Generalized edema; R41.0 Disorientation, unspecified; R11.2 Nausea with vomiting, unspecified
CPT/HCPCS: 36415; 80048; 80053; 85025; 85027

== ENCOUNTER 2018-10-18 20:56 | Inpatient (IN) | payer MEDICARE, OTHER ==
[~2018-10-18] VITALS: Ht 177.8 cm; Wt 95.5 kg
[~2018-10-18 20:56] MED LIST changes: +ACHD5005 PO; +ALPR0.254 PO; +BETH10TA PO; +BISA10SU12 PR; +ENOX40DI8 SC; +FLDR.1T PO; +HYDR20TA2 PO; +MELA3TAB PO; +POLY17PO31 PO; +TAMS0.4C98 PO
[2018-10-18] MEDS ORDERED: NS IV 500 ML 500 ML IV ONE (21:07)
[2018-10-18 21:16] LABS: BASOPHILS % (AUTO) 0 % (0-10); EOSINOPHILS # (AUTO) 0.1 10^3/uL (0.0-0.3); EOSINOPHILS % (AUTO) 1 % (0-10); HEMATOCRIT 28 % (40-54); HEMOGLOBIN 9.6 G/DL (13.3-17.7); LYMPHOCYTES # (AUTO) 0.6 X 10^3 (1.0-4.0); LYMPHOCYTES % (AUTO) 8 % (12-44); MEAN CORPUSCULAR HEMOGLOBIN 32 PG (25-34); MEAN CORPUSCULAR HGB CONC 35 G/DL (32-36); MEAN CORPUSCULAR VOLUME 92 FL (80-99); MONOCYTES # (AUTO) 0.5 X 10^3 (0.0-1.0); MONOCYTES % (AUTO) 6 % (0-12); NEUTROPHILS # (AUTO) 7.2 X 10^3 (1.8-7.8); NEUTROPHILS % (AUTO) 86 % (42-75); PLATELET COUNT 157 10^3/uL (130-400); RED BLOOD COUNT 2.99 10^6/uL (4.35-5.85); RED CELL DISTRIBUTION WIDTH 14.1 % (10.0-14.5); WHITE BLOOD COUNT 8.3 10^3/uL (4.3-11.0)
--- NOTE | 2018-10-18 21:18 | ED Syncope ---
General Chief Complaint: Dizziness/Syncope Stated Complaint: SYNCOPE Source of Information: Patient Exam Limitations: No Limitations History of Present Illness Date Seen by Provider: Oct 18, 2018 Time Seen by Provider: 21:02 Initial Comments Here with report of apparent syncopal episode at the [facility]. He was on bedside commode and passed out for approximately 15 minutes per the . They state that they could not waking up. Currently he is better. EMS was summoned. Currently he was having a bowel movement at the time of the incident. [facility] is currently in the [facility] undergoing physical therapy and pending evaluation at for amyloidosis and he had bad reaction to chemotherapy so they are considering a different type of therapy. Patient states he is just tired as he had fairly significant physical occupational therapy today and he just fell asleep. Reports that he is tired now. Does have history of hyponatremia. Denies pain anywhere. Timing/Prior Episodes: Single Episode Today Symptoms Prior to Episode: Confusion Precipitating Factors: Other (going to the bathroom) Loss of Consciousness: Prolonged (Minutes) Current Symptoms: Back to Normal; No Chest Pain, No Diaphoresis, No Headache, No Injury; Weakness, Other (fatigue and tired) Allergies and Home Medications Allergies Coded Allergies: No Known Drug Allergies (Unverified , 09/23/18) Home Medications Acyclovir 400 Mg Tablet, 400 MG PO BID, (Reported) Alprazolam 0.25 Mg Tablet, 0.75 MG PO Q6HR PRN for ANXIETY Prescribed by: SHOBHA GATICA on 10/03/18 1023 Bethanechol Chloride 10 Mg Tablet, 10 MG PO ACHS Prescribed by: SHOBHA GATICA on 10/03/18 1023 Bisacodyl 10 Mg Supp.rect, 10 MG GA DAILY Prescribed by: SHOBHA GATICA on 10/03/18 1023 Enoxaparin Sodium 40 Mg/0.4 Ml Syringe, 40 MG SC Q24H Prescribed by: SHOBHA GATICA on 10/03/18 1023 Ergocalciferol (Vitamin D2) 50,000 Unit Capsule, 50,000 UNITS PO TuTh, (Reported ) Fludrocortisone Acetate 0.1 Mg Tab, 0.1 MG PO DAILY Prescribed by: SHOBHA GATICA on 10/03/18 1023 Furosemide 40 Mg Tablet, 40 MG PO DAILY, (Reported) Hydrocodone Bit/Acetaminophen 1 Tab Tab, 1 TAB PO Q4H PRN for PAIN-MODERATE Prescribed by: SHOBHA GATICA on 10/03/18 1023 Hydrocortisone 20 Mg Tablet, 30 MG PO DAILY Prescribed by: SHOBHA GATICA on 10/03/18 1023 Hydrocortisone 20 Mg Tablet, 30 MG PO HS Prescribed by: SHOBHA GATICA on 10/03/18 1023 Melatonin 3 Mg Tablet, 6 MG PO HS Prescribed by: SHOBHA GATICA on 10/03/18 1023 Ondansetron HCl 8 Mg Tablet, 8 MG PO Q8H PRN for NAUSEA/VOMITING-1ST LINE, ( Reported) Polyethylene Glycol 3350 17 Gm Powd.pack, 8.5 GM PO BID Prescribed by: SHOBHA GATICA on 10/03/18 1023 Rosuvastatin Calcium 10 Mg Tablet, 20 MG PO HS, (Reported) TAKES 2 (10MG) TABLETS Tamsulosin HCl 0.4 Mg Cap, 0.4 MG PO DAILY@1800 Prescribed by: SHOBHA GATICA on 10/03/18 1023 Vit C/E/Zn/Coppr/Lutein/Zeaxan 1 Each Capsule, 1 CAP PO BID, (Reported) Patient Home Medication List Home Medication List Reviewed: Yes Review of Systems Constitutional: see HPI; No chills, No fever; malaise, weakness EENTM: other (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 Each eye and involves it's unknown type. Pupils are unequal currently and unsure if this is normal or not.); No eye pain Respiratory: No cough, No short of breath Cardiovascular: No chest pain; edema; No palpitations Gastrointestinal: No abdominal pain, No diarrhea, No vomiting Genitourinary: no symptoms reported Musculoskeletal: No back pain; muscle weakness; No neck pain Skin: No lesions, No rash Psychiatric/Neurological: Denies Headache, Denies Numbness; Weakness Past Hjovvkn-Rqtduu-Ixmbjd Hx Past Med/Social Hx: Reviewed Nursing Past Med/Soc Hx Patient Social History Alcohol Use: Rarely Uses Number of Drinks Today: AA Alcohol Beverage of Choice: Beer Recreational Drug Use: Yes Drug of Choice: CANNIBUS Smoking Status: Never a Smoker 2nd Hand Smoke Exposure: No Recent Hopitalizations: Yes (HYPONATREMIA) Immunizations Up To Date Tetanus Booster (TDap): Unknown PED Vaccines UTD: No Date of Pneumonia Vaccine: April 05, 2013 Date of Influenza Vaccine: Sep 12, 2018 Seasonal Allergies Seasonal Allergies: Yes (SINUS ISSUES) Past Medical History Surgeries: Yes (BACK) Abdominal, CABG, Orthopedic, Prostatectomy Respiratory: No Currently Using CPAP: No Currently Using BIPAP: No Cardiac: Yes (CAD) Coronary Artery Disease, High Cholesterol, Hypertension Neurological: Yes Neuropathy Reproductive Disorders: No Sexually Transmitted Disease: No HIV/AIDS: No Genitourinary: No (KIDNEY DZ) 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) Musculoskeletal: No Endocrine: No HEENT: Yes Macular Degeneration Loss of Vision: Bilateral Hearing Impairment: Denies Cancer: Yes (AMYLOIDOSIS) Did You Recieve Any Treatments: Yes What Type of Treatment Did You: Chemotherapy Psychosocial: Yes Anxiety Integumentary: No Blood Disorders: No Adverse Reaction/Blood Tranf: No (N/A) Family Medical History Reviewed Nursing Family Hx Congestive heart failure 03 MOTHER Family history: Thyroid disorder 09 SISTER History of - disorder 03 FATHER (RENA TRACE'S DISEASE) No Family History of: Abdominal aortic aneurysm Cancer Dementia Family history: Allergy Family history: Alzheimer's disease Family history: Arthritis Family history: Cardiovascular disease Family history: Diabetes mellitus Family history: Gastrointestinal disease Hereditary disease History of - respiratory disease Heart Disease, COPD Physical Exam Vital Signs Vital Signs - First Documented 10/18/18 20:57 Temp 96.8 Pulse 70 Resp 18 B/P (MAP) 108/65 (79) Pulse Ox 94 O2 Delivery Room Air Capillary Refill : Height, Weight, BMI Height: 5'10.00" Weight: 220lbs. 8.0oz. 100.980537jc; 25.3 BMI Method:Stated General Appearance: No Apparent Distress, WD/WN HEENT: Pharynx Normal, Other (right pupil 2 mm and left pupil 4 mm. Both sluggishly reactive) Neck: Full Range of Motion, Non Tender, Supple Cardiovascular: Regular Rate, Rhythm, No Murmur Respiratory: Lungs Clear, Normal Breath Sounds Gastrointestinal: Non Tender, Soft Back: Normal Inspection, No CVA Tenderness, No Vertebral Tenderness Extremities: Normal Range of Motion, Non Tender, No Calf Tenderness, Other ( edema noted to all 4 extremities and 2+ noted in the upper extremities. Lower extremities in stockings.) Neurologic/Psychiatric: Alert, Other (mildly agitated but answers questions and follows commands appropriately) Cranial Nerves: Normal Hearing, Normal Speech, Other (. Pupils as above) Motor/Sensory: No Motor Deficit, No Sensory Deficit Skin: Warm/Dry, Pallor Focused Exam Lactate Level 10/18/18 21:02: Lactic Acid Level 1.89 Lactic Acid Level Laboratory Tests Test 10/18/18 21:02 Lactic Acid Level 1.89 MMOL/L (0.50-2.00) Progress/Results/Core Measures Results/Orders Lab Results Laboratory Tests Test 10/18/18 21:02 10/18/18 21:13 Range/Units White Blood Count 8.3 4.3-11.0 10^3/uL Red Blood Count 2.99 L 4.35-5.85 10^6/uL Hemoglobin 9.6 L 13.3-17.7 G/DL Hematocrit 28 L 40-54 % Mean Corpuscular Volume 92 80-99 FL Mean Corpuscular Hemoglobin 32 25-34 PG Mean Corpuscular Hemoglobin Concent 35 32-36 G/DL Red Cell Distribution Width 14.1 10.0-14.5 % Platelet Count 157 130-400 10^3/uL Mean Platelet Volume 11.0 H 7.4-10.4 FL Neutrophils (%) (Auto) 86 H 42-75 % Lymphocytes (%) (Auto) 8 L 12-44 % Monocytes (%) (Auto) 6 0-12 % Eosinophils (%) (Auto) 1 0-10 % Basophils (%) (Auto) 0 0-10 % Neutrophils # (Auto) 7.2 1.8-7.8 X 10^3 Lymphocytes # (Auto) 0.6 L 1.0-4.0 X 10^3 Monocytes # (Auto) 0.5 0.0-1.0 X 10^3 Eosinophils # (Auto) 0.1 0.0-0.3 10^3/uL Basophils # (Auto) 0.0 0.0-0.1 10^3/uL Sodium Level 131 L 135-145 MMOL/L Potassium Level 2.5 *L 3.6-5.0 MMOL/L Chloride Level 91 L 98-107 MMOL/L Carbon Dioxide Level 30 21-32 MMOL/L Anion Gap 10 5-14 MMOL/L Blood Urea Nitrogen 14 7-18 MG/DL Creatinine 1.04 0.60-1.30 MG/DL Estimat Glomerular Filtration Rate > 60 BUN/Creatinine Ratio 13 Glucose Level 116 H 70-105 MG/DL Lactic Acid Level 1.89 0.50-2.00 MMOL/L Calcium Level 7.2 L 8.5-10.1 MG/DL Corrected Calcium 8.9 8.5-10.1 MG/DL Magnesium Level 1.4 L 1.8-2.4 MG/DL Total Bilirubin 0.3 0.1-1.0 MG/DL Aspartate Amino Transf (AST/SGOT) 27 5-34 U/L Alanine Aminotransferase (ALT/SGPT) 18 0-55 U/L Alkaline Phosphatase 66 40-136 U/L Troponin I 0.47 *H <0.30 NG/ML C-Reactive Protein High Sensitivity 0.23 0.00-0.50 MG/DL Total Protein 3.3 L 6.4-8.2 GM/DL Albumin 1.9 L 3.2-4.5 GM/DL Glucometer 123 H 70-110 MG/DL My Orders Orders - BOBBY CUNNINGHAM MD Ekg Tracing (10/18/18 21:07) Monitor-Rhythm Ecg Trace Only (10/18/18 21:07) Cbc With Automated Diff (10/18/18 21:07) Comprehensive Metabolic Panel (10/18/18 21:07) Hs C Reactive Protein (10/18/18 21:07) Lactic Acid Analyzer (10/18/18 21:07) Magnesium (10/18/18 21:07) Troponin I (10/18/18 21:07) Ua Culture If Indicated (10/18/18 21:07) Blood Culture (10/18/18 21:07) Accucheck Stat ONCE (10/18/18 21:07) Ct Head Wo (10/18/18 21:07) Chest 1 View, Ap/Pa Only (10/18/18 21:07) Ns Iv 500 Ml (Sodium Chloride 0.9%) (10/18/18 21:07) Potassium Cl 10meq/50ml Ivpb (Kcl 10 Meq (10/18/18 22:00) Medications Given in ED Current Medications Medications Dose Ordered Sig/Ashlyn Route Start Time Stop Time Status Last Admin Dose Admin Potassium Chloride 50 ml @ 50 mls/hr ONCE ONCE IV 10/18/18 22:00 10/18/18 22:59 10/18/18 21:55 50 MLS/HR Sodium Chloride 500 ml @ 0 mls/hr Q0M ONCE IV 10/18/18 21:07 10/18/18 21:09 DC 10/18/18 21:20 0 MLS/HR Vital Signs/I&O 10/18/18 20:57 Temp 96.8 Pulse 70 Resp 18 B/P (MAP) 108/65 (79) Pulse Ox 94 O2 Delivery Room Air Progress Progress Note : Progress Note Seen and evaluated. IV by EMS. Labs, blood cultures, lactic asked, EKG, chest x-ray and CT head ordered. Monitor patient. Potassium noted to be low. KCl 10 mEq IV ordered. Mag also low and we will replace that as well. 2158: I discussed case with Dr. CHRISTINA and he accepts patient for admission, inpatient status. Troponin was elevated and this may be related to demand ischemia or non -STEMI. EKG does not show any evidence of infarction. We will repeat troponin. Consult cardiology in the morning per Dr. CHRISTINA. Findings concerns discussed with patient and family who agree with plan. Admit, inpatient status Initial ECG Impression Date: Oct 18, 2018 Initial ECG Impression Time: 21:06 Initial ECG Rate: 69 Initial ECG Rhythm: Normal Sinus Comment Sinus rhythm with low voltage and frontal leads. No evidence of ST elevation of blood. Similar to previous of 09/19/18. Normal axis. Interpreted by me. Diagnostic Imaging Diagonstic Imaging: Xray Plain Films/CT/US/NM/MRI: chest Comments NAME: [facility]GR[facility] REC#: [id number] PT STATUS: REG ER : 1940 PHYSICIAN: BOBBY CUNNINGHAM MD ADMIT DATE: 10/18/18/ER Signed Date of Exam: 10/18/18 CHEST 1 VIEW, AP/PA ONLY INDICATION: Frontal chest obtained at 9:18 p.m. and compared with 09/25/2018. FINDINGS: There is cardiomegaly and poststernotomy change. There is infiltrate in the left lung base with obscuration of left hemidiaphragm, similar to the prior study. There is a moderate-sized left pleural effusion. There is no pneumothorax. IMPRESSION: Cardiomegaly with left basilar infiltrate and left pleural effusion. Improved aeration of the right lung base compared to the prior study. There is no pneumothorax. Dictated by: Dictated on workstation # [id number] Dict: 10/18/182131 Trans: 10/18/182142 Interpreted by: TIA MARRERO MD Electronically signed by: TIA MARRERO MD 10/18/182142 Diagonstic Imaging: CT Plain Films/CT/US/NM/MRI: head Comments NAME: NEGRITA MOORE [facility] REC#: [id number] PT STATUS: REG ER : 1940 PHYSICIAN: BOBBY CUNNINGHAM MD ADMIT DATE: 10/18/18/ER Signed Date of Exam: 10/18/18 CT HEAD WO PROCEDURE: CT head without contrast. TECHNIQUE: Multiple contiguous axial images were obtained through the brain without the use of intravenous contrast. FINDINGS: There are diffuse atrophic changes. There were no extra-axial fluid collections. No intracranial hemorrhage. No intracranial mass or mass effect. No midline shift. The ventricles are normal in size for age. There were no focal parenchymal abnormalities seen in the brain. Calvarial windows show no acute bony abnormality. There is opacification of the right mastoid air cells. IMPRESSION: Atrophy with no acute intracranial abnormality. Opacification of the mastoid air cells on the right side is noted. This has not changed when compared with 09/19/2018. Dictated by: Dictated on workstation # [id number] Dict: 10/18/182137 Trans: 10/18/182217 Interpreted by: TIA MARRERO MD Electronically signed by: TIA MARRERO MD 10/18/182217 Departure Communication (Admissions) Time/Spoke to Admitting Phy: 21:59 Impression Primary Impression: Hypokalemia Additional Impressions: Hypomagnesemia Non-STEMI (non-ST elevated myocardial infarction) Disposition: ADMITTED INPATIENT Condition: Stable Admissions Decision to Admit Reason: Admit from ER (General) Decision to Admit/Date: Oct 18, 2018 Time/Decision to Admit Time: 21:59 Departure-Patient Inst. Referrals: YANNA STOVALL DO (PCP/Family) Primary Care Physician BOBBY CUNNINGHAM MD Oct 18, 2018 21:18
--- NOTE | 2018-10-18 21:37 | Diagnostic Imaging Report ---
INDICATION: Frontal chest obtained at 9:18 p.m. and compared with 09/25/2018. FINDINGS: There is cardiomegaly and poststernotomy change. There is infiltrate in the left lung base with obscuration of left hemidiaphragm, similar to the prior study. There is a moderate-sized left pleural effusion. There is no pneumothorax. IMPRESSION: Cardiomegaly with left basilar infiltrate and left pleural effusion. Improved aeration of the right lung base compared to the prior study. There is no pneumothorax. Dictated by: Dictated on workstation # [id number]
[2018-10-18 21:40] LABS: ALANINE AMINOTRANSFERASE 18 U/L (0-55); ALBUMIN 1.9 GM/DL (3.2-4.5); ALKALINE PHOSPHATASE 66 U/L (40-136); BILIRUBIN,TOTAL 0.3 MG/DL (0.1-1.0); BUN/CREATININE RATIO 13; CALCIUM 7.2 MG/DL (8.5-10.1); CARBON DIOXIDE 30 MMOL/L (21-32); CHLORIDE 91 MMOL/L (98-107); CREATININE SERUM 1.04 MG/DL (0.60-1.30); GFR ESTIMATED > 60; GLUCOSE 116 MG/DL (70-105); MAGNESIUM 1.4 MG/DL (1.8-2.4); SODIUM 131 MMOL/L (135-145); TOTAL PROTEIN 3.3 GM/DL (6.4-8.2)
[2018-10-18 21:41] LABS: POTASSIUM 2.5 MMOL/L (3.6-5.0)
[2018-10-18] MEDS ORDERED: POTASSIUM CL 10MEQ/50ML IVPB 50 ML IV ONE (22:00)
--- NOTE | 2018-10-18 22:03 | Diagnostic Imaging Report ---
PROCEDURE: CT head without contrast. TECHNIQUE: Multiple contiguous axial images were obtained through the brain without the use of intravenous contrast. FINDINGS: There are diffuse atrophic changes. There were no extra-axial fluid collections. No intracranial hemorrhage. No intracranial mass or mass effect. No midline shift. The ventricles are normal in size for age. There were no focal parenchymal abnormalities seen in the brain. Calvarial windows show no acute bony abnormality. There is opacification of the right mastoid air cells. IMPRESSION: Atrophy with no acute intracranial abnormality. Opacification of the mastoid air cells on the right side is noted. This has not changed when compared with 09/19/2018. Dictated by: Dictated on workstation # [id number]
--- OUTSIDE RECORDS SUMMARY | 2018-10-18 22:32 | XMS REPORT | Clinical Summary ---
Author Author [facility] Organization [facility] Address Unknown Phone Unavailable Care Team Providers Care Advertising Sales Agent Name Role Phone Sae Gu MD PCP Sae Aleln MD Unavailable Luisa Call DO Unavailable Nikita Armijo MD Unavailable Isai Parra MD Unavailable Shameka Ashton MD Unavailable Salvador Markham MD 3 Salvador Markham MD Unavailable Source Comments Some departments are not documenting in the electronic medical record. If you do not see the information that you expected, contact Release of Information in the Health Information Management department at [phone] for further assistance in locating additional records.[facility] Allergies No Known Allergies Current Medications [...] 81 mg by mouth Active daily. Vit A,C,A-Deyt-Zobvuf Take 1 capsule by mouth Active (ICAPS AREDS) daily. 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 Last [...] will send the kidney biopsy slides to [facility] for Mass spect to evaluate the [...] Encounters Date Type Specialty Care Team Description 10/17/2018 Orders Only Oncology Marbella Cast, PHARMD 10/17/2018 Orders Only Oncology Marbella Cast, GUTIERREZD 10/12/2018 Documentation Oncology Paige Louie 10/11/2018 Clinical Oncology Angella Rincon MD Arrived Support Paige Louie 10/11/2018 Office Visit Oncology Angella Rincon MD Neuropathy ( Primary Dx); Light chain (AL) amyloidosis (HCC); Orthostatic lightheadedness; Proteinuria, unspecified type; Anasarca 09/28/2018 Telephone Oncology Angella Rincon MD Care [...] Rincon MD Amyloidosis , unspecified [place] Dunn 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-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 type (HCC) (Primary Dx); Multiple myeloma, remission [...] Telephone Neurology Nikita Armijo MD General Question from Last 3 Months Family History Medical History Relation Name Comments Motor Neuron Disease Father Relation Name Status Comments Father Mother Social History Tobacco Use Types Packs/Day Years Used Date Never Smoker Smokeless Tobacco: Never Used Alcohol Use Drinks/Week oz/Week Comments Yes Very Rare Sex Assigned at Date Recorded Not on file Last Filed Vital Signs Vital Sign Reading Time Taken Blood Pressure 118/71 10/11/2018 12:16 PM CORE MEASURES ABSTRACTOR Pulse 69 10/11/2018 12:16 PM CORE MEASURES ABSTRACTOR Temperature 37 C (98.6 F) 10/11/2018 12:16 PM CORE MEASURES ABSTRACTOR Respiratory Rate 15 10/11/2018 12:16 PM CORE MEASURES ABSTRACTOR Oxygen Saturation 97% 10/11/2018 12:16 PM CORE MEASURES ABSTRACTOR Inhaled Oxygen - - Concentration Weight 94.3 kg (208 lb) 10/11/2018 12:16 PM CORE MEASURES ABSTRACTOR Height 175.3 cm (5' 9") 10/11/2018 12:16 PM CORE MEASURES ABSTRACTOR Body Mass Index 30.72 10/11/2018 12:16 PM CORE MEASURES ABSTRACTOR Plan of Treatment Health Maintenance Due Date Last Done Comments PHYSICAL (COMPREHENSIVE) 1947 EXAM DTAP/TDAP VACCINES (1 - 1958 Tdap) SHINGLES RECOMBINANT 1990 VACCINE (1 of 2) [...] procedure are in the TEST results section. [facility] TEST 08/08/2018 Amyloidosis (HCC) Results for this 5:03 PM CDT procedure are in the results section. BONE MARROW 08/08/2018 Results for this 5:03 PM CDT procedure are in the results section. [facility] TEST Routine 08/08/2018 Results for this 4:30 PM CDT procedure are in the results section. [facility] TEST Routine 08/08/2018 Results for this 4:30 PM CDT procedure are in the results section. [facility] REFERENCE TEST Routine 08/08/2018 Amyloidosis, unspecified Results for this 4:30 PM CDT type (HCC) procedure are in the results section. [facility] REFERENCE TEST Routine 08/08/2018 Amyloidosis, unspecified Results [...] myeloma, results section. remission status unspecified (HCC) from Last 3 Months Results * PATHOLOGY [...] REFERENCE LAB SPECTROMETRY Reference Lab PERFORMED AT [facility] REFER[facility] LAB LABORATORIES Results Ref Lab SEE [facility] TEST REFERENCE LAB Specimen Mail TISSUE, BLOCK, [id number] A1 REFERENCE LAB Performing Organization Address City/State/Zipcode Phone Number REFERENCE LAB REFERENCE LAB See results for address. * BONE MARROW (08/08/2018 5:03 PM) PATHOLOGY REPORT [facility] [email or web address] Department of Pathology and Laboratory Medicine [address] [place] [address] Surgical Pathology Office:[phone] :[phone] SURGICAL PATHOLOGY REPORT NAME: NEGRITA MOORE SURG PATH #: [id number] MR #: [id number] ALT ID #: LOCATION: [facility] DATE OF PROCEDURE: 08/08/2018 AGE:77 SEX: [...] of Pathology and Laboratory Medicine of the [facility] ([employer]) in compliance with [...] of Pathology and Laboratory Medicine of the [facility].It has not been cleared or approved by the FDA.The FDA has determined that such clearance or approval is not necessary. Performing Organization Address City/State/Zipcode Phone Number KU LAB RESULTS * [facility] TEST (08/08/2018 5:03 PM) Only the most recent of 2 results within the time period is included. [facility] AMPIP, Amyloid Protein ID, REFERENCE LAB Info Par, LC MS/MS [place] Miscellaneous Result SEE COMMENTS 08/17/2018 12:51 REFERENCE LAB PM Test ResultFlag UnitRefValue ------ Amyloid Protein ID, Par, LC MS/MS Interpretation Kidney, specimen for amyloid typing ([id number]; 07/07/2018): Involved by amyloidosis, AL (lambda)-type. A [...] the Department of Laboratory Medicine and Pathology, [facility] at . Report electronically signed by Shakeel Haynes M.D. Material Received A. [id number]: Kidney, [place] 1 block Disclaimer This test was developed and its performance characteristics determined by [facility] in a manner consistent with CLIA requirements. This test has not been cleared or approved by the U.S. Food and Drug Administration. Test Performed by: [address] [address] Performing Organization Address City/State/Zipcode Phone Number REFERENCE LAB REFERENCE LAB See results for address. * [facility] TEST (08/08/2018 4:30 PM) Ref Lab Test Code [id number], Troponin T REFERENCE LAB REF LAB RESULT (MSAR) SEE NOTE REFERENCE LAB Test name Result Flag UnitsRefIntvl - Troponin-T 0.04 H ng/mL <=0.01 Performed by [facility], [address] [place] [address] [email or web address], Loi Wang MD, Lab. Director Performing Organization Address [facility]/Zipcode Phone Number REFERENCE LAB REFERENCE LAB See results for address. * [facility] REFERENCE TEST (08/08/2018 4:30 PM) Only the most recent of 2 results within the time period is included. Test Troponin T REFERENCE LAB Reference Lab PERFORMED AT [facility] REFERENCE LAB LABORATORY-FOR REF RANGE SEE REPORT. Results Ref Lab SEE REF LAB RESULT REFERENCE LAB Specimen Mail SERUM REFERENCE LAB Performing Organization Address [facility] Cent[facility] Phone Number REFERENCE LAB REFERENCE LAB See results for address. * IMMUNOFIXATION, SERUM (IFES) (08/08/2018 4:30 PM) Immuno Fix-Serum NO PARAPROTEIN SEEN MAIN LAB Pathologist Signature INTERPRETED BY LUCERO RANGEL M.D. [facility] By the PATH SIGNATURE ABOVE, I attest that I have personally formulated the final interpretation expressed in this report and that the above diagnosis is based upon my examination of the slides and/or other material indicated in this report. Specimen Blood Performing Organization Address [facility] Centercode Phone Number [facility] [address] [place] [address] * KAPPA/LAMBDA FREE LIGHT CHAINS (08/08/2018 4:30 PM) [place], FLC 1.20 0.33 - 1.94 MG/DL [facility] Comment: Freelite results should always be interpreted in conjunction with other laboratory tests and clinical evidence.The possibility of Antigen Excess exists and can cause Immunoassays to under estimate very high concentrations of antigen. Any discordant results should be discussed with Dr. Montaño. [place], FLC 4.03 (H) 0.57 - 2.63 MG/DL MAIN LAB [place]/Lambda FLC 0.30 0.26 - 1.65 K[facility] MAIN LAB Specimen Blood Performing Organization Address [facility] Phone Number MAIN LAB [address] [place] [address] * PTT (APTT) (08/08/2018 4:30 PM) APTT 28.9Comment: NOTE NEW 20.0 - 36.0 SEC MAIN LAB REFERENCE RANGES Specimen Blood Performing Organization Address [facility] Phone Number MAIN LAB [address] [place] [address] * PROTIME INR (PT) (08/08/2018 4:30 PM) INR 0.9 0.8 - 1.2 MAIN LAB Specimen Blood Performing Organization Address [facility] Phone Number MAIN LAB [address] [place] [address] * CBC AND DIFF (08/08/2018 4:30 PM) White Blood Cells 7.0 4.5 - 11.0 [facility] RBC 4.18 (L) 4.4 - 5.5 M/[facility] Hemoglobin 13.5 13.5 - 16.5 GM/DL [facility] Hematocrit 39.5 (L) 40 - 50 % [facility] MCV 94.4 80 - 100 [place] [facility] MCH 32.3 26 - 34 PG [facility] MCHC 34.2 32.0 - 36.0 G/DL [facility] RDW 14.0 11 - 15 % [facility] Platelet Count 211 150 - 400 K/UL [facility] MPV 9.6 7 - 11 [place] [facility] Segmented Neutrophils 84 (H) 41 - 77 % [facility] Lymphocytes 14 (L) 24 - 44 % [facility] Monocytes 2 (L) 4 - 12 % [facility] Normal RBC Morph NORMAL [facility] Platelet Estimate NORMAL [facility] Absolute Neutrophil Count 5.88 1.8 - 7.0 K[facility] Manual Specimen Blood Performing Organization Address [facility] Centercode Phone Number [facility] [address] [place] [address] * IMMUNOGLOBULINS-IGA,IGG,IGM (08/08/2018 4:30 PM) IgG 277 (L) 762 - 1,488 MG/DL MAIN LAB IgA 46 (L) 70 - 390 MG/DL [facility] MAIN LAB IgM 31 (L) 38 - 328 MG/DL [facility] MAIN LAB Specimen Blood Performing Organization Address [facility] Centercode Phone Number MAIN LAB [address] [place] [address] * ELECTROPHORESIS-SERUM PROTEIN (08/08/2018 4:30 PM) Total [...] Pathologist Signature INTERPRETED BY LUCERO RANGEL M.D. [facility] By the PATH SIGNATURE ABOVE, I attest that I have personally formulated the final interpretation expressed in this report and that the above diagnosis is based upon my examination of the slides and/or other material indicated in this report. Specimen Blood Performing Organization Address [facility] Centercode Phone Number [facility] [address] [place] [address] * BNP (B-TYPE NATRIURETIC PEPTI) (08/08/2018 4:30 PM) B Type Natriuretic 611.0 (H) 0 - 100 PG/ML [facility] Peptide Specimen Blood Performing Organization Address [facility] Centercode Phone Number MAIN LAB [address] [place] [address] * LDH-LACTATE DEHYDROGENASE (08/08/2018 4:30 PM) Lactate Dehydrogenase 234 (H) 100 - 210 U/L [facility] Specimen Blood Performing Organization Address City/[facility]/Zipcode Phone Number [facility] [address] [place] [address] * BETA 2 MICROGLOBULIN (08/08/2018 4:30 PM) B2 Microglobulin 1.9 0.8 - 2.3 MG/L [facility] MAIN LAB Specimen Blood Performing Organization Address City/[facility]/Zipcode Phone Number [facility] MAIN LAB [address] [place] [address] * COMPREHENSIVE METABOLIC PANEL (08/08/2018 4:30 PM) Sodium 126 (L) 137 - 147 MMOL/L [facility] Potassium 4.1 3.5 - 5.1 MMOL/L [facility] Chloride 95 (L) 98 - 110 MMOL/L [facility] Glucose 105 (H) 70 - 100 [...] Alk Phosphatase 67 25 - 110 U/L [facility] AST (SGOT) 21 7 - 40 U/L [facility] CO2 31 (H) 21 - 30 MMOL/L [facility] ALT (SGPT) 14 7 - 56 U/L [facility] Anion Gap <1 (L) 3 - 12 [facility] eGFR Non >60 >60 mL/min K[facility] [...] Blood Performing Organization Address City/State/Zipcode Phone Number [facility] [address] [place] [address] * FLOW CYTOMETRY (08/08/2018 3:43 PM) PATHOLOGY REPORT [facility] www.[email or web address] Aric Broussard MD, Director of Flow Cytometry Laboratory Department of Pathology and Laboratory Medicine [address] [place] [address] Surgical Pathology Office:[phone] :[phone] FLOW CYTOMETRY REPORT NAME: NEGRITA MOORE SURG PATH #: [id number] MR #: [id number] SPECIMEN CLASS: LC BILLING #: [id number] ALT ID #:LOCATION: [facility] DATE OF PROCEDURE: [...] in this report. +++Electronically Signed Out By+++ yoav/08/08/2018 Interpreted by: Flaco Zhao MD 08/09/2018 ############################## ############################## ############ Lab Data: Flow Cytometry - Multiple Myeloma, Minimal Residual Disease Panel Analytic sensitivity of the lower detection limit in this assay is 0.01% Plasma Cell Associated Markers (% Positive Cells): BK27=482; AF292=805; cyKappa=5; cyLambda=93; cyK/cyL ratio=0.1 Miscellaneous Markers (% Positive Cells): CD19=5; CD20=44; CD27=35; CD28=2; CD45=93; CD56=3; CD81=69; GI089=60 Cell Viability (%):n/a Number of Cells Analyzed:1,103,218 Plasma Cells Detected:1.66 Total Number of Markers:15 Summary of Marker Combinations: 81/28/138/38/45/27/20; cyKappa/cyLambda/138/117/38/45 /56/19 This test was developed and its performance characteristics determined by the [facility] Flow Cytometry Laboratory.It has not been [...] - Bone Marrow Performing Organization Address City/[facility]/Zipcode Phone Number MAIN LAB [address] [place] [address] * CHROMOSOMES FISH DNA PROBE (08/08/2018 3:43 PM) Chromosomes Fish DNA SEE PACKAGE DYE STAND LOADER FOR REPORT MAIN LAB Probe Specimen Bone Marrow Performing Organization Address City/[facility]/Zipcode Phone Number MAIN LAB [address] [place] [address] * CHROMOSOMES BONE MARROW (08/08/2018 3:43 PM) Chromosomes Bone Marrow SEE PACKAGE DYE STAND LOADER FOR REPORT MAIN LAB Specimen Bone Marrow Performing Organization Address City/[facility]/Zipcode Phone Number MAIN LAB [address] [place] [address] * FE STAIN (08/08/2018 3:43 PM) Bone Marrow FE SEE PATHOLOGY REPORT MAIN LAB Specimen Bone Marrow - Bone Marrow Performing Organization Address City/[facility]/Zipcode Phone Number MAIN LAB [address] [place] [address] * BONE MARROW ASP (08/08/2018 3:43 PM) Bone Marrow Asp SEE PATHOLOGY REPORT MAIN LAB Specimen Bone Marrow - Bone Marrow Performing Organization Address City/[facility]/Zipcode Phone Number MAIN LAB [address] [place] [address] * BONE MARROW BIOPSY (08/08/2018 3:43 PM) Bone Marrow Bx SEE PATHOLOGY REPORT MAIN LAB Specimen Bone Marrow - Bone Marrow Performing Organization Address City/[facility]/Zipcode Phone Number MAIN LAB [address] [place] [address] * METASTATIC SKELETAL SURVEY (08/08/2018 3:06 PM) [...] procedure well. CHELSEY Loja Performing Organization Address City/State/Zipcode Phone Number OTHER OUTSIDE LAB from Last 3 Months
--- OUTSIDE RECORDS SUMMARY | 2018-10-18 22:32 | XMS REPORT | Encounter Summary ---
Author Author [facility] Organization [facility] Address Unknown Phone Unavailable Care Team Providers Care Dynamometer Tester Engine Name Role Phone Sae Gu MD PCP Sae Allen MD Unavailable Luisa Call DO Unavailable Nikita Armijo MD Unavailable Isai Parra MD Unavailable Shameka Ashton MD Unavailable Salvador Markham MD 3 Salvador Markham MD Unavailable Encounter Details Date Type Department Care Team Description 10/17/2018 Orders Only [facility] [address] [place] [phone] Social History Tobacco Use Types Packs/Day Years Used Date Never Smoker Smokeless Tobacco: Never Used Alcohol Use Drinks/Week oz/Week Comments Yes Very Rare Sex Assigned at Date Recorded Not on file as of this encounter Plan of Treatment Not on fileas of this encounter Visit Diagnoses Not on filein this encounter
--- OUTSIDE RECORDS SUMMARY | 2018-10-18 22:32 | XMS REPORT | Encounter Summary ---
Author Author [facility] Organization [facility] Address Unknown Phone Unavailable Care Team Providers Care Retail Shift Supervisor Name Role Phone Sae Gu MD PCP Sae Allen MD Unavailable Luisa Call DO Unavailable Nikita Armijo MD Unavailable Isai Parra MD Unavailable Shameka Ashton MD Unavailable Salvador Markham MD 3 Salvador Markham MD Unavailable Reason for Visit * Reason Comments Heme/Onc Care Encounter Details Date Type Department Care Team Description 10/11/2018 Office Visit [facility] Angella Rincon MD Neuropathy (Primary Dx); Cancer Center - WW Exam [address] Light chain ([place]) [place] [address] amyloidosis (HCC); [address] [phone] [place] [address] lightheadedness; [phone] Proteinuria, unspecified type; Anasarca Social History Tobacco Use Types Packs/Day Years Used Date Never Smoker Smokeless Tobacco: Never Used Alcohol Use Drinks/Week oz/Week Comments Yes Very Rare Sex Assigned at Date Recorded Not on file as of this encounter Last Filed Vital Signs Vital Sign Reading Time Taken Blood Pressure 118/71 10/11/2018 12:16 PM REFINERY OPERATOR [facility]OR [employer] UNIT Pulse 69 10/11/2018 12:16 PM REFINERY OPERATOR [facility] Temperature 37 C (98.6 F) 10/11/2018 12:16 PM REFINERY OPERATOR [facility] [facility] Respiratory Rate 15 10/11/2018 12:16 PM REFINERY OPERATOR [facility] [facility] Oxygen Saturation 97% 10/11/2018 12:16 PM REFINERY OPERATOR [facility] [employer] [facility]IT Inhaled Oxygen - - Concentration Weight 94.3 kg (208 lb) 10/11/2018 12:16 PM REFINERY OPERATOR [facility] [employer] [facility] Height 175.3 cm (5' 9") 10/11/2018 12:16 PM REFINERY OPERATOR [facility] [employer] [facility] Body Mass Index 30.72 10/11/2018 12:16 PM REFINERY OPERATOR [facility] UN[employer] in this encounter Instructions * Patient Instructions - Mary Gallego RN - 10/11/2018 12:00 PM REFINERY OPERATOR [employer] UNIT Your Care Team: Dr Angella Matute aPRN (Nurse Practitioner) Fanny Quiroga, Clinical Nurse Coordinator Mary Gallego, Clinical Nurse Coordinator Please provide 3-5 business days advanced notice for all refill requests. Please provide 5 business days advanced notice for all paperwork requests. For Non-Urgent phone calls: [phone]- all calls left between 8 and 3:30 returned in the same business day or following morning For Urgent phone call needs: [phone]- if between 8 and 4, ask for Dr Rincon's CNCs Mary or Fanny to be paged; if after hours, ask for MD oncology social worker to be paged. For primary care needs, such as blood [...] bring to next clinic appointment for review. For Myeloma Support Group information, please see: [email or web address] in this encounter Progress Notes * Angella Rincon MD - 10/11/2018 12:00 PM REFINERY OPERATOR [employer] UNIT Formatting of this note may be different from the original. Date of Service: 10/11/2018 Subjective: Reason for Visit: Heme/Onc Care Keo Whitt is a 78 y.o. male.Pt is here for further recommendations regarding his treatment. Pt received first cycle of CyBorD and he developed Anasarca, hyponatremia and hypoalbuminemia, he was unable to tolerate that. Pt is here to discuss all other options, he is currently at Rehab due to his weakness History of Present Illness Onc Timeline Diagnosis:AL [...] hypoalbuminemia and proteinuria patient was sent to lithographic press operator at [place] who recommended a kidney biopsy that was [...] Take 20 mg by mouth daily. Vit A,C,Q-Qbhe-Cpcreh (ICAPS AREDS) 14,320-226-200 amei-xy-mmxx cap Take 1 capsule by mouth daily. VITAMIN D 50,000 unit capsule Take 50,000 Units by mouth twice weekly. warfarin (COUMADIN) 5 mg tablet Take 5 mg by mouth daily. Vitals: 10/11/18 1216 BP: 118/71 Pulse: 69 Resp: 15 Temp: 37 C (98.6 F) TempSrc: Oral SpO2: 97% Weight: 94.3 kg (208 lb) Height: 175.3 cm (69") Body mass index is 30.72 kg/m. Pain Score: Zero Past Medical History: [...] Eastern Cooperative Oncology Group performance status is 3, Capable of only limited selfcare, confined to bed or chair more than 50% of waking hours. Physical [...] Fix-Serum NO PARAPROTEIN SEEN 08/08/2018 04:30 PM [place], FLC 1.20 08/08/2018 04:30 PM Lambda, FLC 4.03 (H) 08/08/2018 04:30 PM [place]/Lambda FLC 0.30 08/08/2018 04:30 PM B2 Microglobulin [...] skeltal survey showed osteopenia. 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 I discussed in depth with the pt the need to start treatment in order to treat his AL Amyloidosis. Pt received cycle 1 CyBorD and he did not tolerate that well , he had Anasarca and orthostatic hypotension secondary to treatment and his wt gain increased. Pt is here to discuss options of treatment that include starting Daratumumab as monotherapy. We will consider giving the first 2 doses here at and then he will resume the rest of the treatment at his local oncologist.The side effects of chemotherapy were discussed extensively with the patient to include the following: Nausea, vomiting, diarrhea, renal failure/ dysfunction, constipation, nerve damage, mucositis, hair loss, myelosuppression causing infection or requiring blood product transfusion, allergic reaction, secondary malignancies and even . Question were answered. Consent signed and placed into chart. Recommendations: D/C CyBorD +Doxycyline due to side effects Start Daratumumab/Dexamethasone Daratumumab (Darzalex) as follows: Weeks 1 to 8: 16 mg/kg IV once per week Weeks 9 to 24: 16 mg/kg IV once every 2 weeks Weeks 25 and on: 16 mg/kg IV once every 4 weeks Start Dexamethasone 20 mg prior to first dose of daratumumab and then will decrease it to 12 mg prior to each dose of Daratumumab Check CBC with differential, CMP weekly Check serum free light chain and SPEP monthly Consider checking 24 hr UPEP After completion of 4 cycles of treatment RTC in 1-2 weeks to start treatment Neuropathy Patient had peripheral neuropathy that most likely is secondary to his amyloidosis. If his neuropathy does not improve we will consider gabapentin. Pt is following Dr. 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 It has slightly improved I will send my note to pt PCP Dr. Gu, and Dr. Salvador Rincon M.D Hot Roll Laminator of Internal medicine Division of Hematologic Malignancies and Cellular Therapeutics Pager [phone] * Brad Owusu, PHARMD - 10/11/2018 12:00 PM REFINERY OPERATOR [facility] [facility] Chemotherapy Education Provided patient with both written and verbal education regarding Daratumumab regimen. Discussed schedule of treatment. Patient will receive treatment as follows (28 day cycle): Pre-medications 1 hour prior to daratumumab including acetaminophen, diphenhydramine, famotidine, steroid, and albuterol as needed Daratumumab IV infusion titrated as tolerated ? Cycles 1-2: Daratumumab given weekly Cycles 3-6: Daratumumab given every other week ? Cycle 7 and beyond: Daratumumab given every 4 weeks Reviewed side effects of chemotherapy, including (but not limited to): ? Hypersensitivity reaction with the first infusion: Cautioned patient about this potential and advised patient to report immediately any shortness of breath , swelling, or other signs of reaction. Reactions can occur with the second infusion and beyond but are rare. ? Decreased red blood cells/hemoglobin (anemia) may cause fatigue, weakness, and shortness of breath. ? Decreased platelets lead to an increased risk of bleeding and bruising. ? Decreased white blood cells result in an increased risk for infections. Reviewed the need for acyclovir prophylaxis and potentially PJP prophylaxis. ? Nausea can occur but is generally mild. ? Back pain can occur. Patient voiced understanding about the provided information. All questions/ concerns were addressed at this time. Medication handout(s) were provided. Brad Owusu, PHARMD * Mary Gallego, RN - 10/11/2018 12:00 PM REFINERY OPERATOR VAPOR RECOVERY UNIT Formatting of this note may be different from the original. Last Myeloma Labs: with Dr Markham's office Pt presentation: amyloidosis; post hospitalization for hyponatremia, hypoalbuminemia in [facility]; full body swelling after hospitalization, now 208 lbs, was 170 lbs on 08/23 clinic visit Treatment: on hold; was receiving CyBorD prior to hospitalization Recommendations and discussion: Recommend Daratumumab monotherapy with dexamethasone (20 on D1, 12 after) weekly X 2 months, then every other week X 6 weeks, then once month after Return to Clinic: first two doses here, then local daratumumab Send note to: Salvador Markham MD Consulting Physician Hematology and Oncology 08/10/2018 End ; Pager: [phone]; Comment: Primary Oncologist, phone # [phone], fax # [phone] in this encounter Plan of Treatment Not on fileas of this encounter Visit Diagnoses Diagnosis Neuropathy - Primary 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
--- OUTSIDE RECORDS SUMMARY | 2018-10-18 22:32 | XMS REPORT | Encounter Summary ---
Author Author [facility] Organization [facility] Address Unknown Phone Unavailable Care Team Providers Care Whitewater Rafting Guide Name Role Phone Sae Gu MD PCP Sae Allen MD Unavailable Luisa Call DO Unavailable Nikita Armijo MD Unavailable Isai Parra MD Unavailable Shameka Ashton MD Unavailable Salvador Markham MD 3 Salvador Markham MD Unavailable Reason for Visit * Reason Comments Care Coordination Encounter Details Date Type Department Care Team Description 09/28/2018 Telephone [facility] Angella Rincon MD Care Coordination Cancer Center - WW Exam [address] [place] [address] [facility] [phone] [place] [address] [phone] Social History Tobacco Use Types Packs/Day Years Used Date Never Smoker Smokeless Tobacco: Never Used Alcohol Use Drinks/Week oz/Week Comments Yes Very Rare Sex Assigned at Date Recorded Not on file as of this encounter Miscellaneous Notes * Telephone Encounter - Mary Gallego RN - 09/28/2018 10:06 AM DISPLAY MANAGER Per Cammie, nurse for Dr Markham, notification [...]
--- OUTSIDE RECORDS SUMMARY | 2018-10-18 22:32 | XMS REPORT | Encounter Summary ---
Author Author [facility] Organization [facility] Address Unknown Phone Unavailable Care Team Providers Care Radio Rigger Name Role Phone Sae Gu MD PCP Sae Allen MD Unavailable Luisa Call DO Unavailable Nikita Armijo MD Unavailable Isai Parra MD Unavailable Shameka Ashton MD Unavailable Salvador Markham MD 3 Salvador Markham MD Unavailable Encounter Details Date Type Department Care Team Description 10/17/2018 Orders Only [facility] Marbella Cast, GUTIERREZD Cancer Center - Pharmacy [address] [place] [phone] Social History Tobacco Use Types Packs/Day Years Used Date Never Smoker Smokeless Tobacco: Never Used Alcohol Use Drinks/Week oz/Week Comments Yes Very Rare Sex Assigned at Date Recorded Not on file as of this encounter Plan of Treatment Not on fileas of this encounter Visit Diagnoses Not on filein this encounter
--- OUTSIDE RECORDS SUMMARY | 2018-10-18 22:32 | XMS REPORT | Encounter Summary ---
Author Author [facility] Organization [facility] Address Unknown Phone Unavailable Care Team Providers Care Superintendent Fish Hatchery Name Role Phone Sae Gu MD PCP Sae Allen MD Unavailable Luisa Call DO Unavailable Nikita Armijo MD Unavailable Isai Parra MD Unavailable Shameka Ashton MD Unavailable Salvador Markham MD 3 Salvador Markham MD Unavailable Encounter Details Date Type Department Care Team Description 10/11/2018 Clinical [facility] Angella Rincon MD [facility] - WW Exam [address] [place] [address] [address] [facility] [phone] [place], [place] [phone] Paige Arzate Social History Tobacco Use Types Packs/Day Years Used Date Never Smoker Smokeless Tobacco: Never Used Alcohol Use Drinks/Week oz/Week Comments Yes Very Rare Sex Assigned at Date Recorded Not on file as of this encounter Progress Notes * Paige Louie - 10/11/2018 1:00 PM FLEET ADMINISTRATIVE ASSISTANT Plan: Confirm Daratumumab treatment with [facility] Interaction: SW was notified by GAMALIEL Hernandez that pt/family would like to talk to SW regarding getting treatment at [facility] during his Long Term Facility stay. SW met with pt//dgt to discuss. Pt was [facility] to [facility] [phone] last week for Skilled Rehab. After talking with Dr. Laird today the goal is to work on insurance auth for monotherapy, Daratumumab with start of treatment 10/25/18. First treatment pt will need to be at [facility] by 7am. Pt is asking if Medicare would ever make an exception for pt to stay the night in [place] 10/24/18 while he is in a SNF so pt would not have to leave the facility at 4am on 10/25. SW notified that insurance would not cover SNF if pt was not at the facility for a midnight. Pt/ family voiced understanding. SW left VM for Lalo Cutler with [facility] to see if pt can get Daratumumab during his SNF stay. SAVANNAH provided pt/ SW business card. SW will continue to follow. Paige Louie LMSW in this encounter Plan of Treatment Not on fileas of this encounter Visit Diagnoses Not on filein this encounter
--- OUTSIDE RECORDS SUMMARY | 2018-10-18 22:32 | XMS REPORT | Encounter Summary ---
Author Author [facility] Organization [facility] Address Unknown Phone Unavailable Care Team Providers Care Property Field Inspector Name Role Phone Sae Gu MD PCP Sae Allen MD Unavailable Luisa Call DO Unavailable Nikita Armijo MD Unavailable Isai Parra MD Unavailable Shameka Ashton MD Unavailable Salvador Markham MD 3 Salvador Markham MD Unavailable Reason for Visit * Reason Comments Other Encounter Details Date Type Department Care Team Description 09/20/2018 Telephone The [facility] Angella Rincon MD Other Cancer Center - WW Exam [address] [facility] [place] [address] [address] [facility] [phone] [place], [place] [phone] Social History Tobacco Use Types Packs/Day Years Used Date Never Smoker Smokeless Tobacco: Never Used Alcohol Use Drinks/Week oz/Week Comments Yes Very Rare Sex Assigned at Date Recorded Not on file as of this encounter Miscellaneous Notes * Telephone Encounter - Heidi Nassar RN - 09/20/2018 1:[address] Patients spouse called stating that patient is [...]
--- OUTSIDE RECORDS SUMMARY | 2018-10-18 22:32 | XMS REPORT | Encounter Summary ---
Author Author [facility] Organization [facility] Address Unknown Phone Unavailable Care Team Providers Care Oil Heaterman Name Role Phone Sae Gu MD PCP Sae Allen MD Unavailable Luisa Call DO Unavailable Nikita Armijo MD Unavailable Isai Parra MD Unavailable Shameka Ashton MD Unavailable Salvador Markham MD 3 Salvador Markham MD Unavailable Encounter Details Date Type Department Care Team Description 10/12/2018 Documentation [facility] Paige Louie [facility] - [address] [phone] Social History Tobacco Use Types Packs/Day Years Used Date Never Smoker Smokeless Tobacco: Never Used Alcohol Use Drinks/Week oz/Week Comments Yes Very Rare Sex Assigned at Date Recorded Not on file as of this encounter Progress Notes * Paige Louie - 10/12/2018 2:[address] 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 SW will continue to follow. JAKE Whitaker later received call back from Iban Cutler stating he talked with his DON and pt can get Daratumumab treatment during his Group Home Facility stay. SAVANNAH emailed Dr. Rincon's clinic to provide update. Paige Louie LMSW in this encounter Plan of Treatment Not on fileas of this encounter Visit Diagnoses Not on filein this encounter
--- OUTSIDE RECORDS SUMMARY | 2018-10-18 22:33 | XMS REPORT | Encounter Summary ---
Author Author [facility] Organization [facility] Address Unknown Phone Unavailable Care Team Providers Care Infantry Officer Name Role Phone Sae Gu MD [...] (SHEBA) MD KAILA Ontiveros Required amyloidosis [address] [place] [address] (HCC) [address] [place] [address] [place] [address] Phone: Fax: Reason for Visit * Reason Comments Heme/Onc Care Encounter Details Date Type Department Care Team Description 08/18/2018 Office Visit [facility] Angella Rincon MD Neuropathy (Primary Dx); Cancer Center - WW Exam [address] Light chain ([place]) [place] [address] amyloidosis (HCC); [address] [phone] [place], [place] [address] type [phone] Social History Tobacco Use Types Packs/Day Years [...] all paperwork requests. For Non-Urgent phone calls: [phone]- all calls left between 8 and 3:30 returned in the same business day or following morning For Urgent phone call needs: [phone]- if between 8 and 4, ask for Dr Rincon's CNCs Mary or Fanny to be paged; if after hours, ask for MD combination machine tool setter to be paged. For Scheduling needs: [phone] For primary care needs, such as blood [...] clinic appointment for review. AMYLOIDOSIS SUPPORT GROUP Tracer Lathe Set Up Operator: Jess [phone] (Toll-Free) or [email or web address] If you are from, [place], [place], [place], [facility], [place] or anywhere else , know you are [...] hypoalbuminemia and proteinuria patient was sent to audio specialist at [place] who recommended a kidney biopsy that was [...] Take 20 mg by mouth daily. Vit A,C,O-Ilrk-Umbsxp (ICAPS AREDS) 14,320-226-200 desf-oi-xfpj cap Take 1 capsule by mouth daily. [...] Fix-Serum NO PARAPROTEIN SEEN 08/08/2018 04:30 PM [place], FLC 1.20 08/08/2018 04:30 PM Lambda, FLC 4.03 (H) 08/08/2018 04:30 PM [place]/Lambda FLC 0.30 08/08/2018 04:30 PM B2 Microglobulin [...] skeltal survey showed osteopenia. Mass spect at [facility] for the kidney biopsy showed AL [...] his renal amyloidosis, Pt is following his audio specialist, will start him on treatment for his AL Amyloidosis I will send my note to pt PCP Dr. Gu, and Dr. Salvador Rincon M.D Embalmer Assistant of Internal medicine Division of Hematologic Malignancies and Cellular Therapeutics Pager [phone] * Mary Gallego, MILLIE - 08/18/2018 12:00 PM CDT Formatting of this note may be different from the original. Last Amyloidosis Labs: 08/08 Pt presentation: Mass spectometry results show AL amyloidosis, lambda type; states will see [place] on 10/03 for 2nd opinion with Dr Finn; lives in [place] , [place] Recommendations and discussion: Start Cytoxan, Velcade, Dexamethasone; [...] ; Nikita Armijo MD Neurology ; Pager: [phone]; Isai Parra MD Nephrology [place], [place]: [phone] Salvador Markham MD Hematology and Oncology ; Pager: [phone]; in this encounter Miscellaneous Notes * Patient [...] at this time. Medication handout(s) provided. 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
--- OUTSIDE RECORDS SUMMARY | 2018-10-18 22:33 | XMS REPORT | Encounter Summary ---
Author Author [facility] Organization [facility] Address Unknown Phone Unavailable Care Team Providers Care Conference Planner Name Role Phone Sae Gu MD PCP [...] Ngoc Ontiveros MD MD Required myeloma, [address] remission status [address] [place] [address] unspecified [place], [place] ([facility]) [phone] Phone: Fax: Scheduling Instructions Please try to cluster appointments with other hospital/[place] appointments if possible. Patient lives 3 hours away. * Consult, Test & Treat (Routine) Status Reason Specialty Diagnoses / Referred By Referred To Procedures Contact Contact New Request Specialty Diagnoses Angella Rincon Morie, MD Services Ngoc Ontiveros MD [address] Required myeloma, [address] [place], [place] remission status [address] [address] unspecified [place], [place] Phone: [facility]) [address] Phone: Encounter Details Date Type Department Care Team Description 08/16/2018 Orders Only [facility] Angella Rincon MD Multiple myeloma, Cancer Center - WW Exam [address] remission [place] [address] unspecified (HCC) [address] [facility] [phone] (Primary Dx) [place] [address] [phone] Social History Tobacco Use Types Packs/Day Years [...]
--- OUTSIDE RECORDS SUMMARY | 2018-10-18 22:33 | XMS REPORT | Encounter Summary ---
Author Author [facility] Organization [facility] Address Unknown Phone Unavailable Care Team Providers Care Videographer Name Role Phone Sae Gu MD PCP Sae Allen MD Unavailable Luisa Call DO Unavailable Nikita Armijo MD Unavailable Isai Parra MD Unavailable Shameka Ashton MD Unavailable Salvador Markham MD 3 Salvador Markham MD Unavailable Encounter Details Date Type Department Care Team Description 08/29/2018 Documentation [facility] Nikita Armijo MD Physicians-Neurology [address] [facility] [place] [address] [address] [facility] [phone] [place] [address] Social History Tobacco Use Types Packs/Day Years Used Date Never Smoker Smokeless Tobacco: Never Used Alcohol Use Drinks/Week oz/Week Comments Yes Very Rare Sex Assigned at Date Recorded Not on file as of this encounter Progress Notes * Alyssa Augustin LPN - 08/29/2018 4:24 PM CDT Patient went to [facility] for evaluation, whom has confirmed diagnosis and recommended patient cancel tilt table testing, so they will not be going through with this procedure. Patient has requested [facility] send records to Dr. Armijo. Confirmed f/u appt. in this encounter Plan of Treatment Not on fileas of this encounter Visit Diagnoses Not on filein this encounter
--- OUTSIDE RECORDS SUMMARY | 2018-10-18 22:33 | XMS REPORT | Encounter Summary ---
Author Author [facility] Organization [facility] Address Unknown Phone Unavailable Care Team Providers Care Principal Archaeologist Name Role Phone Sae Gu MD PCP Sae Allen MD Unavailable Luisa Call DO Unavailable Nikita Armijo MD Unavailable Isai Parra MD Unavailable Shameka Ashton MD Unavailable Salvador Markham MD 3 Reason for Visit * Reason Comments Test Encounter Details Date Type Department Care Team Description 08/09/2018 Telephone [facility] Angella Rincon MD [facility] Cancer Center - WW Exam [address] [facility] [place] [address] [address] [facility] [phone] [place], [place] [phone] Social History Tobacco Use Types Packs/Day Years [...] 3 weeks for results and [facility] will be starting the test tomorrow. Phone number to [place] ( ) provided by Delicia for this [facility] to discuss expediting testing. Spoke with Gisel with [facility] who requested electronic order number for [...]
--- OUTSIDE RECORDS SUMMARY | 2018-10-18 22:33 | XMS REPORT | Encounter Summary ---
Author Author [facility] Organization [facility] Address Unknown Phone Unavailable Care Team Providers Care Support Services Specialist Name Role Phone Sae Gu MD PCP Sae Allen MD Unavailable Luisa Call DO Unavailable Nikita Armijo MD Unavailable Isai Parra MD Unavailable Shameka Ashton MD Unavailable Salvador Markham MD 3 Salvador Markham MD Unavailable Encounter Details Date Type Department Care Team Description 08/29/2018 Documentation Cardiovascular Medicine Malaika Cloud, M[place] [address] [address] [place] [address] Social History Tobacco Use Types Packs/Day Years [...] tilt table test. They went to [facility] recently to consult with the head of [...]
--- OUTSIDE RECORDS SUMMARY | 2018-10-18 22:33 | XMS REPORT | Encounter Summary ---
Author Author [facility] Organization [facility] Address Unknown Phone Unavailable Care Team Providers Care Industrial Sales Engineer Name Role Phone Sae Gu MD PCP Sae Allen MD Unavailable Luisa Call DO Unavailable Nikita Armijo MD Unavailable Isai Parra MD Unavailable Shameka Ashton MD Unavailable Encounter Details Date Type Department Care Team Description 08/08/2018 Hospital [facility] Angella Rincon MD Encounter [facility] [address] [place] [address] [address] [phone] [place] [address] [phone] Social History Tobacco Use Types Packs/Day Years [...] by mouth 07/11/2018 mg tablet daily. Vit A,C,K-Iceh-Xwpuao Take 1 capsule by mouth (ICAPS AREDS) daily. 14,320-226-200 xvoe-ro-znio cap VITAMIN D 50,000 unit Take 50,000 Units by 04/27/2018 capsule mouth twice weekly. as of this encounter Plan of Treatment Not on fileas of this encounter Procedures Procedure Name Priority Date/Time Associated Diagnosis Comments BONE MARROW 08/08/2018 Results for this 5:03 PM CDT procedure are in the results section. [facility] TEST Routine 08/08/2018 Results for this 4:30 PM CDT procedure are in the results section. [facility] REFERENCE TEST Routine 08/08/2018 Amyloidosis, unspecified Results [...] MARROW (08/08/2018 5:03 PM) PATHOLOGY REPORT [facility] [employer] [facility] [email or web address] Department of Pathology and Laboratory Medicine [address] [place] [address] Surgical Pathology Office:[phone] :[phone] SURGICAL PATHOLOGY REPORT NAME: NEGRITA MOORE SURG PATH #: [id number] MR #: [id number] ALT ID #: LOCATION: [facility] DATE OF PROCEDURE: 08/08/2018 AGE:77 SEX: M [...] of Pathology and Laboratory Medicine of the [facility] ([employer]) in compliance with [...] of Pathology and Laboratory Medicine of the [facility].It has not been cleared or approved by the FDA.The FDA has determined that such clearance or approval is not necessary. Performing Organization Address City/State/Zipcode Phone Number [facility] RESULTS * [facility] TEST (08/08/2018 4:30 PM) [facility] PB[facility], NT Pro BNP, S REFERENCE LAB Info [place] Miscellaneous Result SEE COMMENTS 08/10/2018 11:18 REFERENCE [...] absence of renal failure. Test Performed by: [address] [address] Performing Organization Address City/[facility] Phone Number REFERENCE LAB REFERENCE LAB See results for address. * [facility] REFERENCE TEST (08/08/2018 4:30 PM) Test NT Pro B Type Natriuretic REFERENCE LAB Peptide (BNP), Serum Reference Lab PERFORMED AT [facility] Results Ref Lab SEE [facility] TEST REFERENCE LAB Specimen Mail SERUM REFERENCE LAB Performing Organization Address City/[facility] Phone Number REFERENCE LAB REFERENCE LAB See results for address. * FLOW CYTOMETRY (08/08/2018 3:43 PM) PATHOLOGY REPORT [facility] [employer] [email or web address] Aric Broussard MD, Director of Flow Cytometry Laboratory Department of Pathology and Laboratory Medicine [address] [place] [address] Surgical Pathology Office:[phone] :[phone] FLOW CYTOMETRY REPORT NAME: NEGRITA MOORE SURG PATH #: [id number] MR #: [id number] SPECIMEN CLASS: BILLING #: [id number] ALT ID #:LOCATION: [id number] DATE OF PROCEDURE: [...] Plasma Cell Associated Markers (% Positive Cells): FC62=018; QQ867=061; cyKappa=5; cyLambda=93; cyK/cyL ratio=0.1 Miscellaneous Markers (% Positive Cells): CD19=5; CD20=44; CD27=35; CD28=2; CD45=93; CD56=3; CD81=69; DK335=79 Cell Viability (%):n/a Number of Cells Analyzed:1,103,218 Plasma Cells Detected:1.66 Total Number of Markers:15 Summary of Marker Combinations: 81/28/138/38/45/27/20; cyKappa/cyLambda/138/117/38/45 /56/19 This test was developed and its performance characteristics determined by the [facility] Flow Cytometry Laboratory.It has not been [...]
--- OUTSIDE RECORDS SUMMARY | 2018-10-18 22:33 | XMS REPORT | Encounter Summary ---
Author Author [facility] Organization [facility] Address Unknown Phone Unavailable Care Team Providers Care Lens Polisher Hand Name Role Phone Sae Gu MD PCP Sae Allen MD Unavailable Luisa Call DO Unavailable Nikita Armijo MD Unavailable Isai Parra MD Unavailable Shameka Ashton MD Unavailable Encounter Details Date Type Department Care Team Description 08/08/2018 Hospital [facility] Angella Rincon MD Amyloidosis, unspecified [facility] [address] ([facility]) [address] [place] [address] [place] [address] [phone] Social History Tobacco Use Types Packs/Day Years [...] by mouth 07/11/2018 mg tablet daily. Vit A,C,Q-Xrzj-Cmlsgi Take 1 capsule by mouth (ICAPS AREDS) daily. 14,320-226-200 wxyk-xa-vtoz cap VITAMIN D 50,000 unit Take 50,000 [...] procedure are in the TEST results section. [facility] SURGICAL 08/08/2018 Amyloidosis (HCC) Results for this PATHOLOGY REFERENCE LAB 5:03 PM CDT procedure are in the TEST results section. [facility] TEST 08/08/2018 Amyloidosis (HCC) Results for this 5:03 PM CDT procedure are in the results section. in this encounter Results * MISCELLANEOUS SURGICAL PATHOLOGY REFERENCE LAB TEST (08/08/2018 5:03 PM) Test AMYLOID PROTEIN ID, MASS REFERENCE LAB SPECTROMETRY Reference Lab PERFORMED AT [facility] Results Ref Lab SEE [facility] TEST REFERENCE LAB Specimen Mail TISSUE, BLOCK, [id number] A1 REFERENCE LAB Performing Organization Address City/[facility] [address]/[facility] Phone Number REFERENCE LAB REFERENCE LAB See results for address. * MISCELLANEOUS SURGICAL PATHOLOGY REFERENCE LAB TEST (08/08/2018 5:03 PM) Test AMYLOID PROTEIN ID, REFERENCE LAB MICRODISSECTION, LASER CAPTURE Reference Lab PERFORMED AT [facility] Results Ref Lab SEE [facility] TEST REFERENCE LAB Specimen Mail TISSUE, BLOCK, [id number] A1 REFERENCE LAB Performing Organization Address City/[facility] [address]/[facility] Phone Number REFERENCE LAB REFERENCE LAB See results for address. * MISCELLANEOUS SURGICAL PATHOLOGY REFERENCE LAB TEST (08/08/2018 5:03 PM) Test Amyloid Protein REFERENCE LAB Identification, Paraffin Reference Lab PERFORMED AT [facility] Results Ref Lab SEE [facility] TEST REFERENCE LAB Specimen Mail Parrafin block REFERENCE LAB Performing Organization Address [facility] [address]/[facility] Phone Number REFERENCE LAB REFERENCE LAB See results for address. * [facility] TEST (08/08/2018 5:03 PM) [facility] AMPIP, Amyloid Protein ID, REFERENCE LAB Info Par, LC MS/MS [facility] Result SEE COMMENTS 08/17/2018 12:51 REFERENCE LAB PM Test ResultFlag UnitRefValue ------ Amyloid Protein ID, Par, LC MS/MS Interpretation Kidney, specimen for amyloid typing ([id number]; 07/07/2018): Involved by amyloidosis, AL (lambda)-type. A [...] the Department of Laboratory Medicine and Pathology, [facility] Med Access at . Report electronically signed by Shakeel Haynes M.D. Material Received A. [id number]: Kidney, creek 1 block Disclaimer This test was developed and its performance characteristics determined by [facility] in a manner consistent with CLIA requirements. This test has not been cleared or approved by the U.S. Food and Drug Administration. Test Performed by: [address] [address] Performing Organization Address City/State/Zipcode Phone Number REFERENCE LAB REFERENCE LAB See results for address. in this encounter Visit Diagnoses Diagnosis Amyloidosis (HCC) Amyloidosis, unspecified Admitting Diagnoses Diagnosis Amyloidosis, unspecified (HCC) Amyloidosis, unspecified
--- OUTSIDE RECORDS SUMMARY | 2018-10-18 22:33 | XMS REPORT | Encounter Summary ---
Author Author [facility] Organization [facility] Address Unknown Phone Unavailable Care Team Providers Care Cone Baker Machine Name Role Phone Sae Gu MD PCP Sae Allen MD Unavailable Luisa Call DO Unavailable Nikita Armijo MD Unavailable Isai Parra MD Unavailable Shameka Ashton MD Unavailable Salvador Markham MD 3 Salvador Markham MD Unavailable Reason for Visit * Reason Comments Records Request Encounter Details Date Type Department Care Team Description 08/19/2018 Telephone [facility] Destiny Quiros Records Request [address] [place] [address] Social History Tobacco Use Types Packs/Day Years [...] O2 and also Dr Sae Allen at [facility] in [place] in this encounter Plan of Treatment Not on fileas of this encounter Visit Diagnoses Not on filein this encounter
--- OUTSIDE RECORDS SUMMARY | 2018-10-18 22:33 | XMS REPORT | Encounter Summary ---
Author Author [facility] Organization [facility] Address Unknown Phone Unavailable Care Team Providers Care Precision Machine Operator Name Role Phone Sae Gu MD PCP Sae Allen MD Unavailable Luisa Call DO Unavailable Nikita Armijo MD Unavailable Isai Parra MD Unavailable Shameka Ashton MD Unavailable Salvador Markham MD 3 Salvador Markham MD Unavailable Reason for Visit * Reason Comments Follow Up Encounter Details Date Type Department Care Team Description 08/23/2018 Office Visit [facility] Nikita Armijo MD Neuropathy (Primary Dx); Physicians-Neurology [address] [place] [facility] [place] [address] amyloidosis (HCC); [address] [phone] Orthostatic [place], [place] lightheadedness [address] Social History Tobacco Use [...] in this encounter Progress Notes * Nikita Armioj MD - 08/23/2018 2:50 PM CDT Formatting [...] but he is going to [facility] tomorrow for second opinion. The patient [...] Take 20 mg by mouth daily. Vit A,C,C-Seve-Vgpgcq (ICAPS AREDS) 14,320-226-200 pmra-rf-cxrz cap Take 1 capsule by mouth daily. [...] for a second opinion at [facility] tomorrow before he starts treatment. His [...] This note was in part completed with [employer] Vanilla, a speech recognition software. Some grammatical and food and beverage attendant errors may have occurred. If you have any concern, please contact my office for clarification Nikita Armijo MD Wrapper [facility] Neurology/Neuromuscular Medicine in this encounter Plan of Treatment Not on fileas of this encounter Visit Diagnoses Diagnosis Neuropathy - Primary Mononeuritis of unspecified site [place] chain [place]) amyloidosis (HCC) Orthostatic lightheadedness Dizziness and giddiness
--- OUTSIDE RECORDS SUMMARY | 2018-10-18 22:33 | XMS REPORT | Encounter Summary ---
Author Author [facility] Organization [facility] Address Unknown Phone Unavailable Care Team Providers Care Flap Presser Name Role Phone Sae Gu MD PCP Sae Allen MD Unavailable Luisa Call DO Unavailable Nikita Armijo MD Unavailable Isai Parra MD Unavailable Shameka Ashton MD Unavailable Reason for Visit * Reason Comments Heme/Onc Care Encounter Details Date Type Department Care Team Description 08/08/2018 Procedure visit [facility] Angella Rincon MD Amyloidosis, unspecified [facility] [address] [facility] type (HCC) (Primary Dx ); [place] [address] Multiple myeloma, [address] [facility] [phone] [place] [address] unspecified (HCC) [phone] [place] Herbert, SAWMILL RELIEF WORKER-BOAT ENGINES INSTALLER [address] [facility] [place] [address] [phone] Social History Tobacco Use Types Packs/Day Years [...] marked as necessary. Physician/Surgeon: Madeleine Dunn APRN Cable Tv Installer; Beata Loya Scrub: Repair Clerk: Lucinda Bingham Prep Area: Left iliac crest [...] Marrow - Bone Marrow Performing Organization Address City/[facility]/Zipcode Phone Number MAIN LAB [address] [place] [address] * FE STAIN (08/08/2018 3:43 PM) Bone Marrow FE SEE PATHOLOGY REPORT MAIN LAB Specimen Bone Marrow - Bone Marrow Performing Organization Address City/[facility]/Zipcode Phone Number MAIN LAB [address] [place] [address] * CHROMOSOMES FISH DNA PROBE (08/08/2018 3:43 PM) Chromosomes Fish DNA SEE [facility] FOR REPORT MAIN LAB Probe Specimen Bone Marrow Performing Organization Address City/[facility]/Zipcode Phone Number MAIN LAB [address] [place] [address] * CHROMOSOMES BONE MARROW (08/08/2018 3:43 PM) Chromosomes Bone Marrow SEE [facility] FOR REPORT MAIN LAB Specimen Bone Marrow Performing Organization Address City/[facility] Phone Number MAIN LAB [address] [place] [address] * BONE MARROW BIOPSY (08/08/2018 3:43 PM) Bone Marrow Bx SEE PATHOLOGY REPORT MAIN LAB Specimen Bone Marrow - Bone Marrow Performing Organization Address [facility] Phone Number MAIN LAB [address] [place] [address] * BONE MARROW ASP (08/08/2018 3:43 PM) Bone Marrow Asp SEE PATHOLOGY REPORT MAIN LAB Specimen Bone Marrow - Bone Marrow Performing Organization Address [facility] Phone Number [facility]3] LAB [address] [place] [address] * BIOPSY BONE MARROW PROCEDURE (08/08/2018 3:00 [...] procedure well. CHELSEY Loja Performing Organization Address [facility]/State/Zipcode Phone Number OTHER OUTSIDE LAB in this encounter Visit Diagnoses Diagnosis Amyloidosis, unspecified type (HCC) - Primary Multiple myeloma, remission status unspecified (HCC)
--- OUTSIDE RECORDS SUMMARY | 2018-10-18 22:33 | XMS REPORT | Encounter Summary ---
Author Author [facility] Organization [facility] Address Unknown Phone Unavailable Care Team Providers Care Director Of Patient Care Name Role Phone Sae Gu MD PCP Sae Allen MD Unavailable Luisa Call DO Unavailable Nikita Armijo MD Unavailable Isai Parra MD Unavailable Shameka Ashton MD Unavailable Salvador Markham MD 3 Salvador Markham MD Unavailable Reason for Visit * Reason Comments Hallucinations Fall Encounter Details Date Type Department Care Team Description 09/19/2018 Telephone [facility] Angella Rincon MD Hallucinations; [facility] Exam [address] [place] [address] [address] [facility] [phone] [place], [place] [phone] Social History Tobacco Use Types Packs/Day Years Used Date Never Smoker Smokeless Tobacco: Never Used Alcohol Use Drinks/Week oz/Week Comments Yes Very Rare Sex Assigned at Date Recorded Not on file as of this encounter Miscellaneous Notes * Telephone Encounter - Mary Gallego RN - 09/19/2018 9:01 AM AUTOMATIC PILOT MECHANIC Voicemail had been left after hours on Wednesday from stating that patient was having multiple falls and hallucinations at home. Upon callback Wednesday AM, reports they had gone to [facility] and sodium in the low 110's. reports [...]
--- OUTSIDE RECORDS SUMMARY | 2018-10-18 22:33 | XMS REPORT | Encounter Summary ---
Author Author [facility] Organization [facility] Address Unknown Phone Unavailable Care Team Providers Care Turntable Man Name Role Phone Sae Gu MD PCP Sae Allen MD Unavailable Luisa Call DO Unavailable Nikita Armijo MD Unavailable Isai Parra MD Unavailable Shameka Ashton MD Unavailable Salvador Markham MD 3 Salvador Markham MD Unavailable Encounter Details Date Type Department Care Team Description 09/05/2018 Documentation [facility] Nikita Armijo MD Physicians-Neurology [address] [facility] [place] [address] [address] [facility] [phone] [place] [address] Social History Tobacco Use Types Packs/Day Years Used Date Never Smoker Smokeless Tobacco: Never Used Alcohol Use Drinks/Week oz/Week Comments Yes Very Rare Sex Assigned at Date Recorded Not on file as of this encounter Progress Notes * Anca Garcia, RN - 09/05/2018 2:21 PM CDT Received [facility]'s faxed records, will give to MR to upload into system. in this encounter Plan of Treatment Not on fileas of this encounter Visit Diagnoses Not on filein this encounter
--- OUTSIDE RECORDS SUMMARY | 2018-10-18 22:34 | XMS REPORT | Encounter Summary ---
Author Author [facility] Organization [facility] Address Unknown Phone Unavailable Care Team Providers Care Captain/Check Airman Name Role Phone Sae Gu MD PCP Sae Allen MD Unavailable Luisa Call DO Unavailable Nikita Armijo MD Unavailable Isai Parra MD Unavailable Shameka Ashton MD Unavailable Reason for Referral * Consult, Test & Treat (Routine) Status Reason Specialty Diagnoses / Referred By Referred To Procedures Contact Contact Closed Specialty Diagnoses Angella Rincon Services Weston Briceño MD Required unspecified type [address] [place] [address] Reason for Visit * Reason Comments Heme/Onc Care * Consult, Test & Treat (Routine) Status Reason Specialty Diagnoses / Referred By Referred To Procedures Contact Contact No Auth Needed Hematology / Diagnoses Mckenzie Gu [facility] Oncology Sae Briceño III, A, MD referral Dr. BRIGHT 23[address] Harriet Gu [address] [place] [id number] [place], [place] [address] [address] Phone: NEW PATIENT [phone] Encounter Details Date Type Department Care Team Description 08/08/2018 Office Visit [facility] Angella Rincon MD Multiple myeloma, Cancer Center - [facility] Exam [address] [facility] remission status Cancer Center [place], [place] unspecified (HCC) [address] [phone] (Primary Dx); [place], [place] Amyloidosis, unspecified [phone] type (HCC); Personal history of other diseases [...] all paperwork requests. For Non-Urgent phone calls: [phone]- all calls left between 8 and 3:30 returned in the same business day or following morning For Urgent phone call needs: [phone]- if between 8 and 4, ask for Dr Rincon's CNCs Mary or Fanny to be paged; if after hours, ask for MD air pollution specialist to be paged. For Scheduling needs: [phone] For primary care needs, such as blood [...] hypoalbuminemia and proteinuria patient was sent to printed circuit board panels trimmer at [place] who recommended a kidney biopsy that was [...] Take 20 mg by mouth daily. Vit A,C,K-Awfd-Qnbcdi (ICAPS AREDS) [id number],[id number] voye-ou-afkq cap Take 1 capsule by mouth daily. [...] Fix-Serum NO PARAPROTEIN SEEN 08/08/2018 04:30 PM [place], FLC 1.20 08/08/2018 04:30 PM [place], FLC 4.03 (H) 08/08/2018 04:30 PM [place]/Lambda FLC 0.30 08/08/2018 04:30 PM B2 Microglobulin [...] will send the kidney biopsy slides to [facility] for Mass spect to evaluate the type [...] care for the patient Angella Rincon M.D Dice Table Operator of Internal medicine Division of Hematologic Malignancies and Cellular Therapeutics Pager [phone] * Mary Gallego RN - 08/08/2018 1:20 [...] Coordinate care and send notes to: Sae uG III, MD PCP - General Internal Medicine 05/13/2018 End 05/13 ; Other Patient Care Team Members Sae Allen MD Cardiology 08/08/2018 End 08/08/18 ; Luisa Call DO Endocrinology and Diabetes Services 08/08/2018 End ; Nikita Armijo MD Neurology 08/08/2018 End 08/08/18 ; Pager: [phone]; Isai Parra MD Nephrology 08/08/2018 End 08/08/18 [facility] [phone] in this encounter Miscellaneous Notes * Assessment [...] will send the kidney biopsy slides to [facility] for Mass spect to evaluate the type [...] CENTER LAB Specimen Blood Performing Organization Address City/[facility] Cent[facility]ode Phone Number [facility] [address] [phone] * BNP (B-TYPE NATRIURETIC PEPTI) (08/08/2018 4:30 PM) B Type Natriuretic 611.0 (H) 0 - 100 PG/ML [facility] Peptide Specimen Blood Performing Organization Address [facility] Centerconj Phone Number [facility] [address] [place] [address] * CBC AND DIFF (08/08/2018 4:30 PM) White Blood Cells 7.0 4.5 - 11.0 K/UL [facility] RBC 4.18 [...] LAB Manual Specimen Blood Performing Organization Address [facility] Centercode Phone Number [facility] [address] [place] [address] * COMPREHENSIVE METABOLIC PANEL (08/08/2018 4:30 PM) [...] for questions. Specimen Blood Performing Organization Address City/[facility]/Zipcode Phone Number [facility] [address] [place] [address] * ELECTROPHORESIS-SERUM PROTEIN (08/08/2018 4:30 PM) Total Protein-SEP 4.0 (L) 6.0 - 8.0 G/DL [facility] Albumin % 55.7 48 - 68 [...] Pathologist Signature INTERPRETED BY LUCERO RANGEL M.D. [facility] By the PATH SIGNATURE ABOVE, I attest that I have personally formulated the final interpretation expressed in this report and that the above diagnosis is based upon my examination of the slides and/or other material indicated in this report. Specimen Blood Performing Organization Address [facility] Centercode Phone Number [facility] [address] [place] [address] * IMMUNOGLOBULINS-IGA,IGG,IGM (08/08/2018 4:30 PM) IgG 277 (L) 762 - 1,488 MG/DL [facility] IgA 46 (L) 70 - 390 MG/DL [facility] IgM 31 (L) 38 - 328 MG/DL [facility] Specimen Blood Performing Organization Address [facility] Centerconj Phone Number [facility] [address] [place] [address] * IMMUNOFIXATION, SERUM (IFES) (08/08/2018 4:30 PM) [...] this report. Specimen Blood Performing Organization Address [facility] Centerconj Phone Number [facility] [address] [place] [address] * KAPPA/LAMBDA FREE LIGHT CHAINS (08/08/2018 4:30 PM) [place], FLC 1.20 0.33 - 1.94 MG/DL [facility] Comment: Freelite results should always be interpreted in conjunction with other laboratory tests and clinical evidence.The possibility of Antigen Excess exists and can cause Immunoassays to under estimate very high concentrations of antigen. Any discordant results should be discussed with Dr. Montaño. Lambda, FLC 4.03 (H) 0.57 - 2.63 MG/DL MAIN LAB [place]/Lambda FLC 0.30 0.26 - 1.65 MAIN LAB Specimen Blood Performing Organization Address [facility] Centerconj Phone Number MAIN LAB [address] [place] [address] * LDH-LACTATE DEHYDROGENASE (08/08/2018 4:30 PM) Lactate Dehydrogenase 234 (H) 100 - 210 U/L [facility] Specimen Blood Performing Organization Address [facility]conj Phone Number [facility] [address] [place] [address] * PROTIME INR (PT) (08/08/2018 4:30 PM) INR 0.9 0.8 - 1.2 MAIN LAB Specimen Blood Performing Organization Address [facility] Phone Number MAIN LAB [address] [place] [address] * PTT (APTT) (08/08/2018 4:30 PM) APTT 28.9Comment: NOTE NEW 20.0 - 36.0 SEC [facility] REFERENCE RANGES Specimen Blood Performing Organization Address [facility] Phone Number MAIN LAB [address] [place] [address] * CHROMOSOMES FISH DNA PROBE (08/08/2018 3:43 PM) Chromosomes Fish DNA SEE TUBING MILL OPERATOR FOR REPORT MAIN LAB Probe Specimen Bone Marrow Performing Organization Address [facility] Centerconj Phone Number MAIN LAB [address] [place] [address] * CHROMOSOMES BONE MARROW (08/08/2018 3:43 PM) Chromosomes Bone Marrow SEE TUBING MILL OPERATOR FOR REPORT MAIN LAB Specimen Bone Marrow Performing Organization Address [facility] Centercode Phone Number MAIN LAB [address] [place] [address] * LEUKEMIA/LYMPHOMA PNL, BONE MARROW (08/08/2018 3:43 PM) Leuk/Lymph Interpretation SEE PATHOLOGY REPORT MAIN LAB Specimen/LLM BONE MARROW MAIN LAB Specimen Bone Marrow - Bone Marrow Performing Organization Address City/[facility]/Zipcode Phone Number MAIN LAB [address] [place] [address] * FE STAIN (08/08/2018 3:43 PM) Bone Marrow FE SEE PATHOLOGY REPORT MAIN LAB Specimen Bone Marrow - Bone Marrow Performing Organization Address City/[facility]/Zipcode Phone Number MAIN LAB [address] [place] [address] * BONE MARROW BIOPSY (08/08/2018 3:43 PM) Bone Marrow Bx SEE PATHOLOGY REPORT MAIN LAB Specimen Bone Marrow - Bone Marrow Performing Organization Address [facility]/Zipcode Phone Number MAIN LAB [address] [place] [address] * BONE MARROW ASP (08/08/2018 3:43 PM) Bone Marrow Asp SEE PATHOLOGY REPORT MAIN LAB Specimen Bone Marrow - Bone Marrow Performing Organization Address [facility] Centercode Phone Number [facility] [address] [place] [address] * METASTATIC SKELETAL SURVEY (08/08/2018 3:06 PM) [...] procedure well. CHELSEY Loja Performing Organization Address City/[facility] Phone Number OTHER OUTSIDE LAB in this encounter Visit Diagnoses Diagnosis Multiple myeloma, remission status unspecified (HCC) - Primary Amyloidosis, unspecified type (HCC) Personal history of other diseases of the circulatory system Neuropathy Mononeuritis of unspecified site Proteinuria, unspecified type
--- OUTSIDE RECORDS SUMMARY | 2018-10-18 22:34 | XMS REPORT | Encounter Summary ---
Author Author [facility] Organization [facility] Address Unknown Phone Unavailable Care Team Providers Care Maintenance Chief Name Role Phone Sae Gu MD PCP Sae Allen MD Unavailable Luisa Call DO Unavailable Nikita Armijo MD Unavailable Isai Parra MD Unavailable Shameka Ashton MD Unavailable Reason for Visit * Reason Comments Navigation Assessment Encounter Details Date Type Department Care Team Description 08/05/2018 Telephone [facility] Angella Rincon MD Navigation Assessment Cancer Center - [facility] Exam [id number] [facility] [phone] [place] [address] [phone] Social History Tobacco Use Types Packs/Day Years [...] Patient Name: Keo Whitt : 1940 Insurance: Medicare/[facility] Appointment Info: Future Appointments Date Time Provider Department Center 08/08/2018 1:20 PM Angella Rincon MD [facility] Exam 08/30/2018 1:00 PM NON-IMAGING PROCEDURE [...] Amyloidosis. Comments: See notes from Neurologist and Tubular Products Fabricator. Can be found in O2. in this encounter Plan of Treatment Not on fileas of this encounter Visit Diagnoses Not on filein this encounter
--- OUTSIDE RECORDS SUMMARY | 2018-10-18 22:34 | XMS REPORT | Encounter Summary ---
Author Author [facility] Organization [facility] Address Unknown Phone Unavailable Care Team Providers Care Marketing Producer Name Role Phone Sae Gu MD PCP Sae Allen MD Unavailable Luisa Call DO Unavailable Nikita Armijo MD Unavailable Isai Parra MD Unavailable Shameka Ashton MD Unavailable Reason for Visit * Reason Comments Heme/Onc Care Encounter Details Date Type Department Care Team Description 08/08/2018 Lab Only [facility] Angella Rincon MD Amyloidosis, unspecified Cancer Center - [facility] Exam [address] type (HCC); [place] [address] Personal history of other [address] [phone] [place] [address] circulatory system [phone] Social History Tobacco Use Types Packs/Day Years Used Date Never Smoker Smokeless Tobacco: Never Used Alcohol Use Drinks/Week oz/Week Comments Yes Very Rare Sex Assigned at Date Recorded Not on file as of this encounter Plan of Treatment Not on fileas of this encounter Procedures Procedure Name Priority Date/Time Associated Diagnosis Comments [facility] [place] TEST Routine 08/08/2018 Results for this 4:30 PM CDT procedure are in the results section. [facility] [place]FERENCE TEST Routine 08/08/2018 [...] results section. in this encounter Results * [facility] (08/08/2018 4:30 PM) Ref Lab Test Code [id number], Troponin T REFERENCE LAB REF LAB RESULT (MSAR) SEE NOTE REFERENCE LAB Test name Result Flag UnitsRefIntvl - Troponin-T 0.04 H ng/mL <=0.01 Performed by [employer], [address], [facility] [place] [address] www.[employer], Loi Wang MD, Lab. Director Performing Organization Address City/[facility]/Zipcode Phone Number REFERENCE LAB REFERENCE LAB See results for address. * MISC REFERENCE TEST (08/08/2018 4:30 PM) Test Troponin T REFERENCE LAB Reference Lab PERFORMED AT [facility] REFERENCE LAB LABORATORY-FOR REF RANGE SEE REPORT. Results Ref Lab SEE REF LAB RESULT REFERENCE LAB Specimen Mail SERUM REFERENCE LAB Performing Organization Address [facility]/Zipcode Phone Number REFERENCE LAB REFERENCE LAB See results for address. * BETA 2 MICROGLOBULIN (08/08/2018 4:30 PM) B2 Microglobulin 1.9 0.8 - 2.3 MG/L [facility] Specimen Blood Performing Organization Address [facility] Phone Number [facility] [address] [place] [address] * BNP (B-TYPE NATRIURETIC PEPTI) (08/08/2018 4:30 PM) B Type Natriuretic 611.0 (H) 0 - 100 PG/ML MAIN LAB Peptide Specimen Blood Performing Organization Address [facility] Hospitalcome Phone Number [facility] [address] [place] [address] * CBC AND DIFF (08/08/2018 4:30 PM) White Blood Cells 7.0 4.5 - 11.0 K/UL [facility] RBC 4.18 (L) 4.4 - 5.5 [...] LAB Manual Specimen Blood Performing Organization Address City/[facility]/Zipcode Phone Number [facility] [address] [place] [address] * COMPREHENSIVE METABOLIC PANEL (08/08/2018 4:30 PM) [...] for questions. Specimen Blood Performing Organization Address City/[facility]/Zipcode Phone Number [facility] [address] [place] [address] * ELECTROPHORESIS-SERUM PROTEIN (08/08/2018 4:30 PM) Total [...] Pathologist Signature INTERPRETED BY LUCERO RANGEL M.D. [facility] By the PATH SIGNATURE ABOVE, I attest that I have personally formulated the final interpretation expressed in this report and that the above diagnosis is based upon my examination of the slides and/or other material indicated in this report. Specimen Blood Performing Organization Address City/[facility]/Zipcode Phone Number [facility] [address] [place] [address] * IMMUNOGLOBULINS-IGA,IGG,IGM (08/08/2018 4:30 PM) IgG 277 (L) 762 - 1,488 MG/DL [facility] IgA 46 (L) 70 - 390 MG/DL [facility] IgM 31 (L) 38 - 328 MG/DL [facility] Specimen Blood Performing Organization Address City/[facility]/Zipcode Phone Number [facility] [address] [place] [address] * IMMUNOFIXATION, SERUM (IFES) (08/08/2018 4:30 PM) Immuno Fix-Serum NO PARAPROTEIN SEEN [facility] Pathologist Signature INTERPRETED BY LUCERO RANGEL M.D. [facility] By the PATH SIGNATURE ABOVE, I attest that I have personally formulated the final interpretation expressed in this report and that the above diagnosis is based upon my examination of the slides and/or other material indicated in this report. Specimen Blood Performing Organization Address [facility]/Zipcode Phone Number [facility] [address] [place] [address] * KAPPA/LAMBDA FREE LIGHT CHAINS (08/08/2018 4:30 PM) [place], FLC 1.20 0.33 - 1.94 MG/DL [facility] Comment: Freelite results should always be interpreted in conjunction with other laboratory tests and clinical evidence.The possibility of Antigen Excess exists and can cause Immunoassays to under estimate very high concentrations of antigen. Any discordant results should be discussed with Dr. Montaño. Lambda, FLC 4.03 (H) 0.57 - 2.63 MG/DL MAIN LAB [place]/Lambda FLC 0.30 0.26 - 1.65 MAIN LAB Specimen Blood Performing Organization Address [facility] Hospitalcome Phone Number MAIN LAB [address] [place] [address] * LDH-LACTATE DEHYDROGENASE (08/08/2018 4:30 PM) Lactate Dehydrogenase 234 (H) 100 - 210 U/L [facility] Specimen Blood Performing Organization Address [facility] Hospitalcode Phone Number [facility] [address] [place] [address] * PROTIME INR (PT) (08/08/2018 4:30 PM) INR 0.9 0.8 - 1.2 MAIN LAB Specimen Blood Performing Organization Address [facility] Phone Number MAIN LAB [address] [place] [address] * PTT (APTT) (08/08/2018 4:30 PM) APTT 28.9Comment: NOTE NEW 20.0 - 36.0 SEC MAIN LAB REFERENCE RANGES Specimen Blood Performing Organization Address [facility] Phone Number [facility] [address] [place] [address] in this encounter Visit Diagnoses Diagnosis Amyloidosis, unspecified type (HCC) Personal history of other diseases of the circulatory system
--- OUTSIDE RECORDS SUMMARY | 2018-10-18 22:34 | XMS REPORT | Encounter Summary ---
Author Author [facility] Organization [facility] Address Unknown Phone Unavailable Care Team Providers Care Test Department Helper Name Role Phone Sae Gu MD PCP Reason for Visit * Reason Comments General Question Encounter Details Date Type Department Care Team Description 07/19/2018 Telephone [facility] Nikita Armijo MD General Question Physicians-Neurology [address] [facility] [address] [address] [employer] [facility] [phone] [place] [address] Social History Tobacco Use Types [...]
[2018-10-18 23:19] VITALS: BP 137/74
[2018-10-18 23:31] VITALS: BP 129/79
--- OUTSIDE RECORDS SUMMARY | 2018-10-18 23:34 | XMS REPORT | Encounter Summary ---
Author Author [facility] Organization [facility] Address Unknown Phone Unavailable Care Team Providers Care Records Management Manager Name Role Phone Sae Gu MD PCP Sae Allen MD Unavailable Luisa Call DO Unavailable Nikita Armijo MD Unavailable Isai Parra MD Unavailable Shameka Ashton MD Unavailable Salvador Markham MD 3 Salvador Markham MD Unavailable Encounter Details Date Type Department Care Team Description 10/11/2018 Clinical [facility] Angella Rincon MD [facility] - [facility] Exam [address] [place] [address] [address] [facility] [phone] [place], [place] [phone] Paige Arzate Social History Tobacco Use Types Packs/Day Years Used Date Never Smoker Smokeless Tobacco: Never Used Alcohol Use Drinks/Week oz/Week Comments Yes Very Rare Sex Assigned at Date Recorded Not on file as of this encounter Progress Notes * Paige Louie - 10/11/2018 1:00 PM INSTRUCTIONAL TECHNOLOGY COACH Plan: Confirm Daratumumab treatment with [facility] Interaction: SW was notified by GAMALIEL Hernandez that pt/family would like to talk to SW regarding getting treatment at [facility]. SW met with pt//dgt to discuss. Pt was [facility] [phone] last week for Skilled Rehab. After talking with Dr. Laird today the goal is to work on insurance auth for monotherapy, Daratumumab with start of treatment 10/25/18. First treatment pt will need to be at [facility] by 7am. Pt is asking if Medicare would ever make an exception for pt to stay the night in [place] 10/24/18 while he is in a SNF [...]
--- OUTSIDE RECORDS SUMMARY | 2018-10-18 23:34 | XMS REPORT | Encounter Summary ---
Author Author [facility] Organization [facility] Address Unknown Phone Unavailable Care Team Providers Care Activity Specialist Name Role Phone Sae Gu MD PCP Sae Allen MD Unavailable Luisa Call DO Unavailable Nikita Armijo MD Unavailable Isai Parra MD Unavailable Shameka Ashton MD Unavailable Salvador Markham MD 3 Salvador Markham MD Unavailable Reason for Visit * Reason Comments Heme/Onc Care Encounter Details Date Type Department Care Team Description 10/11/2018 Office Visit [facility] Angella Rincon MD Neuropathy (Primary Dx); Cancer Center - [facility] Exam [address] [place] ([place]) [place] [address] amyloidosis (HCC); [address] [phone] [place] [address] lightheadedness; [phone] Proteinuria, unspecified type; Anasarca Social History Tobacco Use Types Packs/Day Years Used Date Never Smoker Smokeless Tobacco: Never Used Alcohol Use Drinks/Week oz/Week Comments Yes Very Rare Sex Assigned at Date Recorded Not on file as of this encounter Last Filed Vital Signs Vital Sign Reading Time Taken Blood Pressure 118/71 10/11/2018 12:16 PM PHARM SPEC Pulse 69 10/11/2018 12:16 PM PHARM SPEC Temperature 37 C (98.6 F) 10/11/2018 12:16 PM PHARM SPEC Respiratory Rate 15 10/11/2018 12:16 PM PHARM SPEC Oxygen Saturation 97% 10/11/2018 12:16 PM PHARM SPEC Inhaled Oxygen - - Concentration Weight 94.3 kg (208 lb) 10/11/2018 12:16 PM PHARM SPEC Height 175.3 cm (5' 9") 10/11/2018 12:16 PM PHARM SPEC Body Mass Index 30.72 10/11/2018 12:16 PM PHARM SPEC in this encounter Instructions * Patient Instructions - Mary Gallego RN - 10/11/2018 12:00 PM PHARM SPEC Your Care Team: Dr Angella Matute aPRN (Nurse Practitioner) Fanny Quiroga, Clinical Nurse Coordinator Mary Gallego, Clinical Nurse Coordinator Please provide 3-5 business days advanced notice for all refill requests. Please provide 5 business days advanced notice for all paperwork requests. For Non-Urgent phone calls: [phone]- all calls left between 8 and 3:30 returned in the same business day or following morning For Urgent phone call needs: [phone]- if between 8 and 4, ask for Dr Rincon's CNCs Mary or Fanny to be paged; if after hours, ask for MD production stage manager to be paged. For primary care needs, [...] Angella Rincon MD - 10/11/2018 12:00 PM PHARM SPEC Formatting of this note may be different [...] hypoalbuminemia and proteinuria patient was sent to correctional sergeant at [place] who recommended a kidney biopsy that was [...] Take 20 mg by mouth daily. Vit A,C,C-Eifp-Wzzigw (ICAPS AREDS) 14,320-226-200 xdxw-ct-jskn cap Take 1 capsule by mouth daily. [...] Fix-Serum NO PARAPROTEIN SEEN 08/08/2018 04:30 PM Geiger, FLC 1.20 08/08/2018 04:30 PM Lambda, FLC 4.03 (H) 08/08/2018 04:30 PM Geiger/Lambda FLC 0.30 08/08/2018 04:30 PM B2 Microglobulin [...] survey showed osteopenia. Mass spect at [facility] for the kidney biopsy showed AL [...] his renal amyloidosis, Pt is following his correctional sergeant, will start him on a treatment for his [place] Amyloidosis Anasarca: Possible is secondary to his treatment and his disease. It has slightly improved I will send my note to pt PCP Dr. Gu, and Dr. Salvador Rincon M.D Director Employee Safety And Health of Internal medicine Division of Hematologic Malignancies and Cellular Therapeutics Pager [phone] * Brad Owusu, PHARMD - 10/11/2018 12:00 PM PHARM SPEC Chemotherapy Education Provided patient with both written [...] Mary Gallego, RN - 10/11/2018 12:00 PM PHARM SPEC Formatting of this note may be different [...] Hematology and Oncology 08/10/2018 End ; Pager: [phone]; Comment: Primary Oncologist, phone # [phone], fax # [phone] in this encounter Plan of Treatment Not on fileas of this encounter Visit Diagnoses Diagnosis Neuropathy - Primary 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
--- OUTSIDE RECORDS SUMMARY | 2018-10-18 23:34 | XMS REPORT | Encounter Summary ---
Author Author [facility] Organization [facility] Address Unknown Phone Unavailable Care Team Providers Care Porcelain Enamel Installer Name Role Phone Sae Gu MD PCP Sae Allen MD Unavailable Luisa Call DO Unavailable Nikita Armijo MD Unavailable Isai Parra MD Unavailable Shameka Ashton MD Unavailable Salvador Markham MD 3 Salvador Markham MD Unavailable Reason for Visit * Reason Comments Hallucinations Fall Encounter Details Date Type Department Care Team Description 09/19/2018 Telephone [facility] Angella Rincon MD Hallucinations; [facility] - [facility] Exam [address] [place] [address] [address] [facility] [phone] [place], [place] [phone] Social History Tobacco Use Types Packs/Day Years Used Date Never Smoker Smokeless Tobacco: Never Used Alcohol Use Drinks/Week oz/Week Comments Yes Very Rare Sex Assigned at Date Recorded Not on file as of this encounter Miscellaneous Notes * Telephone Encounter - Mary Gallego RN - 09/19/2018 9:01 AM LIEN SEARCHER Voicemail had been left after hours on Wednesday from stating that patient was having multiple falls and hallucinations at home. Upon callback Wednesday AM, reports they had gone to [facility] and sodium in the low 110's. reports [...]
--- OUTSIDE RECORDS SUMMARY | 2018-10-18 23:34 | XMS REPORT | Encounter Summary ---
Author Author [facility] Organization [facility] Address Unknown Phone Unavailable Care Team Providers Care Accountant Auditor Name Role Phone Sae Gu MD PCP Sae Allen MD Unavailable Luisa Call DO Unavailable Nikita Armijo MD Unavailable Isai Parra MD Unavailable Shameka Ashton MD Unavailable Salvador Markham MD 3 Salvador Markham MD Unavailable Reason for Visit * Reason Comments Other Encounter Details Date Type Department Care Team Description 09/20/2018 Telephone [facility] Angella Rincon MD Other Cancer Center - [facility] Exam [address] [facility] [place] [address] [address] [facility] [phone] [place], [place] [phone] Social History Tobacco Use Types Packs/Day Years Used Date Never Smoker Smokeless Tobacco: Never Used Alcohol Use Drinks/Week oz/Week Comments Yes Very Rare Sex Assigned at Date Recorded Not on file as of this encounter Miscellaneous Notes * Telephone Encounter - Heidi Nassar RN - 09/20/2018 1:21 PM THIRD RIGGER Patients spouse called stating that patient is [...]
--- OUTSIDE RECORDS SUMMARY | 2018-10-18 23:34 | XMS REPORT | Encounter Summary ---
Author Author [facility] Organization [facility] Address Unknown Phone Unavailable Care Team Providers Care Franchise Sales Representative Name Role Phone Sae Gu MD PCP Sae Allen MD Unavailable Luisa Call DO Unavailable Nikita Armijo MD Unavailable Isai Parra MD Unavailable Shameka Ashton MD Unavailable Salvador Markham MD 3 Salvador Markham MD Unavailable Encounter Details Date Type Department Care Team Description 10/17/2018 Orders Only [facility] Marbella Cast, GUTIERREZD [facility] - Pharmacy [address] [place] [phone] Social History Tobacco Use Types Packs/Day Years Used Date Never Smoker Smokeless Tobacco: Never Used Alcohol Use Drinks/Week oz/Week Comments Yes Very Rare Sex Assigned at Date Recorded Not on file as of this encounter Plan of Treatment Not on fileas of this encounter Visit Diagnoses Not on filein this encounter
--- OUTSIDE RECORDS SUMMARY | 2018-10-18 23:34 | XMS REPORT | Encounter Summary ---
Author Author [facility] Organization [facility] Address Unknown Phone Unavailable Care Team Providers Care [place] Assessor Name Role Phone Sea Gu MD PCP Sae Allen MD Unavailable Luisa Call DO Unavailable Nikita Armijo MD Unavailable Isai Parra MD Unavailable Shameka Ashton MD Unavailable Salvador Markham MD 3 Salvador Markham MD Unavailable Encounter Details Date Type Department Care Team Description 10/12/2018 Documentation [facility] Paige Louie [facility] - [address] [phone] Social History Tobacco Use Types Packs/Day Years Used Date Never Smoker Smokeless Tobacco: Never Used Alcohol Use Drinks/Week oz/Week Comments Yes Very Rare Sex Assigned at Date Recorded Not on file as of this encounter Progress Notes * Paige Louie - 10/12/2018 2:22 PM EYELET ROW MARKER SW received call from Iban Cutler at [facility] [phone] stating he has passed on information to WILMA Zimmer and tobacco baler Beba to see if pt is able to get monotherapy, Daratumumab, during SNF stay. SW will continue to follow. JAKE Whitaker later received call back from Iban Cutler stating he talked with his DON and pt can get Daratumumab treatment during his [facility] stay. SAVANNAH emailed Dr. Rincon's clinic to provide update. Paige Louie LMSW in this encounter Plan of Treatment Not on fileas of this encounter Visit Diagnoses Not on filein this encounter
--- OUTSIDE RECORDS SUMMARY | 2018-10-18 23:34 | XMS REPORT | Clinical Summary ---
Author Author [facility] Organization [facility] Address Unknown Phone Unavailable Care Team Providers Care Gmat Instructor Name Role Phone Sae Gu MD PCP [...] in the Health Information Management department at [phone] for further assistance in locating additional records.[facility] Allergies No Known Allergies Current Medications [...] 81 mg by mouth Active daily. Vit A,C,Q-Dtny-Mefrjf Take 1 capsule by mouth Active (ICAPS AREDS) daily. 14,320-226-200 pjpv-cp-vhbs cap ergocalciferol (vitamin Take 1 tablet by [...] will send the kidney biopsy slides to [facility] for Mass spect to evaluate the [...] Rincon MD Amyloidosis , unspecified [place] Dunn APRN-SUPERVISOR WASH HOUSE type (HCC) (Primary Dx); Multiple myeloma, remission [...] Taken Blood Pressure 118/71 10/11/2018 12:16 PM SHORT ORDER FRY COOK Pulse 69 10/11/2018 12:16 PM SHORT ORDER FRY COOK Temperature 37 C (98.6 F) 10/11/2018 12:16 PM SHORT ORDER FRY COOK Respiratory Rate 15 10/11/2018 12:16 PM SHORT ORDER FRY COOK Oxygen Saturation 97% 10/11/2018 12:16 PM SHORT ORDER FRY COOK Inhaled Oxygen - - Concentration Weight 94.3 kg (208 lb) 10/11/2018 12:16 PM SHORT ORDER FRY COOK Height 175.3 cm (5' 9") 10/11/2018 12:16 PM SHORT ORDER FRY COOK Body Mass Index 30.72 10/11/2018 12:16 PM SHORT ORDER FRY COOK Plan of Treatment Health Maintenance Due Date [...] procedure are in the TEST results section. [facility] TEST 08/08/2018 Amyloidosis (HCC) Results for this 5:03 PM CDT procedure are in the results section. BONE MARROW 08/08/2018 Results for this 5:03 PM CDT procedure are in the results section. [facility] TEST Routine 08/08/2018 Results for this 4:30 PM CDT procedure are in the results section. [facility] TEST Routine 08/08/2018 Results for this 4:30 PM CDT procedure are in the results section. [facility] REFERENCE TEST Routine 08/08/2018 Amyloidosis, unspecified Results for this 4:30 PM CDT type (HCC) procedure are in the results section. [facility] REFERENCE TEST Routine 08/08/2018 Amyloidosis, unspecified [...] REFERENCE LAB SPECTROMETRY Reference Lab PERFORMED AT [facility] REFERENCE LAB LABORATORIES Results Ref Lab SEE [facility] TEST REFERENCE LAB Specimen Mail TISSUE, BLOCK, [id number] A1 REFERENCE LAB Performing Organization Address City/State/Zipcode Phone Number REFERENCE LAB REFERENCE LAB See results for address. * BONE MARROW (08/08/2018 5:03 PM) PATHOLOGY REPORT [facility] [email or web address] Department of Pathology and Laboratory Medicine [address] [place] [address] Surgical Pathology Office:[phone] :[phone] SURGICAL PATHOLOGY REPORT NAME: NEGRITA MOORE SURG PATH #: [id number] MR #: [id number] ALT ID #: LOCATION: [id number] DATE OF [...] of Pathology and Laboratory Medicine of the [facility] ([employer]) in compliance with [...] of Pathology and Laboratory Medicine of the [facility].It has not been cleared or approved by the FDA.The FDA has determined that such clearance or approval is not necessary. Performing Organization Address City/State/Zipcode Phone Number KU LAB RESULTS * [facility] TEST (08/08/2018 5:03 PM) Only the most recent of 2 results within the time period is included. 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 A [...] by Shakeel Haynes M.D. Material Received A. [id number]: Kidney, [place] 1 block Disclaimer This test was developed and its performance characteristics determined by [facility] in a manner consistent with CLIA requirements. This test has not been cleared or approved by the U.S. Food and Drug Administration. Test Performed by: [address] [address] Performing Organization Address City/State/Zipcode Phone Number REFERENCE LAB REFERENCE LAB See results for address. * [facility] TEST (08/08/2018 4:30 PM) Ref Lab Test Code [id number], Troponin T REFERENCE LAB REF LAB RESULT (MSAR) SEE NOTE REFERENCE LAB Test name Result Flag UnitsRefIntvl - Troponin-T 0.04 H ng/mL <=0.01 Performed by [facility], [address] [place] [id number] [email or web address], Loi Wang MD, Lab. Director Performing Organization Address [facility]/Zipcode Phone Number REFERENCE LAB REFERENCE LAB See results for address. * [facility] REFERENCE TEST (08/08/2018 4:30 PM) Only the most recent of 2 results within the time period is included. Test Troponin T REFERENCE LAB Reference Lab PERFORMED AT [facility] REFERENCE LAB LABORATORY-FOR REF RANGE SEE REPORT. Results Ref Lab SEE REF LAB RESULT REFERENCE LAB Specimen Mail SERUM REFERENCE LAB Performing Organization Address [facility] Centercode Phone Number REFERENCE LAB REFERENCE LAB See results for address. * IMMUNOFIXATION, SERUM (IFES) (08/08/2018 4:30 PM) Immuno Fix-Serum NO PARAPROTEIN SEEN MAIN LAB Pathologist Signature INTERPRETED BY LUCERO RANGEL M.D. [facility] By the PATH SIGNATURE ABOVE, I attest that I have personally formulated the final interpretation expressed in this report and that the above diagnosis is based upon my examination of the slides and/or other material indicated in this report. Specimen Blood Performing Organization Address [facility] Centercode Phone Number [facility] [address] [place] [address] * KAPPA/LAMBDA FREE LIGHT CHAINS (08/08/2018 4:30 PM) [place], FLC 1.20 0.33 - 1.94 MG/DL [facility] Comment: Freelite results should always be interpreted in conjunction with other laboratory tests and clinical evidence.The possibility of Antigen Excess exists and can cause Immunoassays to under estimate very high concentrations of antigen. Any discordant results should be discussed with Dr. Montaño. Lambda, FLC 4.03 (H) 0.57 - 2.63 MG/DL MAIN LAB [place]/Lambda FLC 0.30 0.26 - 1.65 KU MAIN LAB Specimen Blood Performing Organization Address [facility] Centerconm Phone Number MAIN LAB [address] [place] [address] * PTT (APTT) (08/08/2018 4:30 PM) APTT 28.9Comment: NOTE NEW 20.0 - 36.0 SEC MAIN LAB REFERENCE RANGES Specimen Blood Performing Organization Address [facility] Phone Number MAIN LAB [address] [place] [address] * PROTIME INR (PT) (08/08/2018 4:30 PM) INR 0.9 0.8 - 1.2 MAIN LAB Specimen Blood Performing Organization Address [facility] Phone Number MAIN LAB [address] [place] [address] * CBC AND DIFF (08/08/2018 4:30 PM) White Blood Cells 7.0 4.5 - 11.0 K/UL [facility] RBC 4.18 (L) 4.4 - 5.5 M/UL [facility] Hemoglobin 13.5 13.5 - 16.5 GM/DL [facility] LAB Hematocrit 39.5 (L) 40 - 50 % K[facility] LAB MCV 94.4 80 - 100 FL [facility] MCH 32.3 26 - 34 PG [facility] MCHC 34.2 32.0 - 36.0 G/DL [facility] RDW 14.0 11 - 15 % [facility] Platelet Count 211 150 - 400 K/UL [facility] LAB MPV 9.6 7 - 11 FL [facility] Segmented Neutrophils 84 (H) 41 - 77 % [facility] Lymphocytes 14 (L) 24 - 44 % [facility] LAB Monocytes 2 (L) 4 - 12 % [facility] LAB Normal RBC Morph NORMAL K[facility] LAB Platelet Estimate NORMAL [facility] Absolute Neutrophil Count 5.88 1.8 - 7.0 K/UL [facility] Manual Specimen Blood Performing Organization Address [facility] Centercode Phone Number [facility] [address] [place] [address] * IMMUNOGLOBULINS-IGA,IGG,IGM (08/08/2018 4:30 PM) IgG 277 (L) 762 - 1,488 MG/DL MAIN LAB IgA 46 (L) 70 - 390 MG/DL K[facility] MAIN LAB IgM 31 (L) 38 - 328 MG/DL [facility] MAIN LAB Specimen Blood Performing Organization Address [facility] Centercode Phone Number MAIN LAB [address] [place] [address] * ELECTROPHORESIS-SERUM PROTEIN (08/08/2018 4:30 PM) Total [...] Pathologist Signature INTERPRETED BY LUCERO RANGEL M.D. [facility] By the PATH SIGNATURE ABOVE, I attest that I have personally formulated the final interpretation expressed in this report and that the above diagnosis is based upon my examination of the slides and/or other material indicated in this report. Specimen Blood Performing Organization Address [facility] Centercode Phone Number [facility] [address] [place] [address] * BNP (B-TYPE NATRIURETIC PEPTI) (08/08/2018 4:30 PM) B Type Natriuretic 611.0 (H) 0 - 100 PG/ML [facility] Peptide Specimen Blood Performing Organization Address [facility] Centercode Phone Number MAIN LAB [address] [place] [address] * LDH-LACTATE DEHYDROGENASE (08/08/2018 4:30 PM) Lactate Dehydrogenase 234 (H) 100 - 210 U/L [facility] Specimen Blood Performing Organization Address City/[facility]/Zipcode Phone Number [facility] [address] [place] [address] * BETA 2 MICROGLOBULIN (08/08/2018 4:30 PM) B2 Microglobulin 1.9 0.8 - 2.3 MG/L [facility] MAIN LAB Specimen Blood Performing Organization Address City/[facility]/Zipcode Phone Number [facility] MAIN LAB [address] [place] [address] * COMPREHENSIVE METABOLIC PANEL (08/08/2018 4:30 PM) [...] Blood Performing Organization Address City/State/Zipcode Phone Number [facility] [address] [place] [address] * FLOW CYTOMETRY (08/08/2018 3:43 PM) PATHOLOGY REPORT [facility] [email or web address] Aric Broussard MD, Director of Flow Cytometry Laboratory Department of Pathology and Laboratory Medicine [address] [place] [address] Surgical Pathology Office:[phone] :[phone] FLOW CYTOMETRY REPORT NAME: NEGRITA MOORE SURG PATH #: [id number] MR #: [id number] SPECIMEN CLASS: LC BILLING #: [id number] ALT ID #:LOCATION: [facility] DATE OF PROCEDURE: [...] Plasma Cell Associated Markers (% Positive Cells): JH26=290; HC358=661; cyKappa=5; cyLambda=93; cyK/cyL ratio=0.1 Miscellaneous Markers (% Positive Cells): CD19=5; CD20=44; CD27=35; CD28=2; CD45=93; CD56=3; CD81=69; XO598=82 Cell Viability (%):n/a Number of Cells Analyzed:1,103,218 Plasma Cells Detected:1.66 Total Number of Markers:15 Summary of Marker Combinations: 81/28/138/38/45/27/20; cyKappa/cyLambda/138/117/38/45 /56/19 This test was developed and its performance characteristics determined by the [facility] Flow Cytometry Laboratory.It has not been [...] [place]/Zipcode Phone Number MAIN LAB [address] [place] [address] * CHROMOSOMES FISH DNA PROBE (08/08/2018 3:43 PM) Chromosomes Fish DNA SEE DEFENSIVE LINE COACH FOR REPORT MAIN LAB Probe Specimen Bone Marrow Performing Organization Address City/[facility]/Zipcode Phone Number MAIN LAB [address] [place] [address] * CHROMOSOMES BONE MARROW (08/08/2018 3:43 PM) Chromosomes Bone Marrow SEE DEFENSIVE LINE COACH FOR REPORT MAIN LAB Specimen Bone Marrow Performing Organization Address City/[facility]/Zipcode Phone Number MAIN LAB [address] [place] [address] * FE STAIN (08/08/2018 3:43 PM) Bone Marrow FE SEE PATHOLOGY REPORT MAIN LAB Specimen Bone Marrow - Bone Marrow Performing Organization Address City/[facility]/Zipcode Phone Number MAIN LAB [address] [place] [address] * BONE MARROW ASP (08/08/2018 3:43 PM) Bone Marrow Asp SEE PATHOLOGY REPORT MAIN LAB Specimen Bone Marrow - Bone Marrow Performing Organization Address City/[facility]/Zipcode Phone Number MAIN LAB [address] [place] [address] * BONE MARROW BIOPSY (08/08/2018 3:43 PM) Bone Marrow Bx SEE PATHOLOGY REPORT MAIN LAB Specimen Bone Marrow - Bone Marrow Performing Organization Address City/[facility]/Zipcode Phone Number MAIN LAB [address] [place] [address] * METASTATIC SKELETAL SURVEY (08/08/2018 3:06 PM) [...]
--- OUTSIDE RECORDS SUMMARY | 2018-10-18 23:34 | XMS REPORT | Encounter Summary ---
Author Author [facility] Organization [facility] Address Unknown Phone Unavailable Care Team Providers Care Manager Spa Name Role Phone Sae Gu MD PCP Sae Allen MD Unavailable Luisa Call DO Unavailable Nikita Armijo MD Unavailable Isai Parra MD Unavailable Shameka Ashton MD Unavailable Salvador Markham MD 3 Salvador Markham MD Unavailable Reason for Visit * Reason Comments Care Coordination Encounter Details Date Type Department Care Team Description 09/28/2018 Telephone [facility] Angella Rincon MD Care Coordination Cancer Center - [facility] Exam [address] [place] [address] 2650 [facility] [phone] [place] [address] [phone] Social History Tobacco Use Types Packs/Day Years Used Date Never Smoker Smokeless Tobacco: Never Used Alcohol Use Drinks/Week oz/Week Comments Yes Very Rare Sex Assigned at Date Recorded Not on file as of this encounter Miscellaneous Notes * Telephone Encounter - Mary Gallego RN - 09/28/2018 10:06 AM REPORTS ANALYSIS MANAGER Per Cammie, nurse for Dr Markham, [...]
--- OUTSIDE RECORDS SUMMARY | 2018-10-18 23:34 | XMS REPORT | Encounter Summary ---
Author Author [facility] Organization [facility] Address Unknown Phone Unavailable Care Team Providers Care Preschool Assistant Name Role Phone Sae Gu MD PCP Sae Allen MD Unavailable Luisa Call DO Unavailable Nikita Armijo MD Unavailable Isai Parra MD Unavailable Shameka Ashton MD Unavailable Salvador Markham MD 3 Salvador Markham MD Unavailable Encounter Details Date Type Department Care Team Description 08/29/2018 Documentation [facility] Nikita Armijo MD Physicians-Neurology [address] [facility] [place] [address] 115[address] [facility] [phone] [place] [address] Social History Tobacco Use Types Packs/Day Years Used Date Never Smoker Smokeless Tobacco: Never Used Alcohol Use Drinks/Week oz/Week Comments Yes Very Rare Sex Assigned at Date Recorded Not on file as of this encounter Progress Notes * Alyssa Augustin LPN - 08/29/2018 4:24 PM CDT Patient went to [facility] for evaluation, whom has confirmed diagnosis and recommended patient cancel tilt table testing, so they will not be going through with this procedure. Patient has requested [facility] send records to Dr. Armijo. Confirmed f/u appt. in this encounter Plan of Treatment Not on fileas of this encounter Visit Diagnoses Not on filein this encounter
--- OUTSIDE RECORDS SUMMARY | 2018-10-18 23:34 | XMS REPORT | Encounter Summary ---
Author Author [facility] Organization [facility] Address Unknown Phone Unavailable Care Team Providers Care Patient Coordinator Name Role Phone Sae Gu MD PCP Sae Allen MD Unavailable Luisa Call DO Unavailable Nikita Armijo MD Unavailable Isai Parra MD Unavailable Shameka Ashton MD Unavailable Salvador Markham MD 3 Salvador Markham MD Unavailable Encounter Details Date Type Department Care Team Description 10/17/2018 Orders Only [facility] Marbella Cast, GUT[facility]REZD [facility] [address] [place] [phone] Social History Tobacco Use Types Packs/Day Years Used Date Never Smoker Smokeless Tobacco: Never Used Alcohol Use Drinks/Week oz/Week Comments Yes Very Rare Sex Assigned at Date Recorded Not on file as of this encounter Plan of Treatment Not on fileas of this encounter Visit Diagnoses Not on filein this encounter
--- OUTSIDE RECORDS SUMMARY | 2018-10-18 23:34 | XMS REPORT | Encounter Summary ---
Author Author [facility] Organization [facility] Address Unknown Phone Unavailable Care Team Providers Care Melter Helper Name Role Phone Sae Gu MD PCP Sae Allen MD Unavailable Luisa Call DO Unavailable Nikita Armijo MD Unavailable Isai Parra MD Unavailable Shameka Ashton MD Unavailable Salvador Markham MD 3 Salvador Markham MD Unavailable Encounter Details Date Type Department Care Team Description 08/29/2018 Documentation Cardiovascular Medicine Malaika Cloud, MILL[place] [address] [address] [place] [address] Social History Tobacco Use Types Packs/Day Years Used Date Never Smoker Smokeless Tobacco: Never Used Alcohol Use Drinks/Week oz/Week Comments Yes Very Rare Sex Assigned at Date Recorded Not on file as of this encounter Progress Notes * Malaika Cluod, RN - 08/29/2018 4:23 PM CDT Pt and Ashley, pt's , called back in regards to my message about the autonomic tilt table testing scheduled for tomorrow. They stated they had left a message with Dr. Hollis (neurology) to let him know that the patient will not be here tomorrow for the tilt table test. They went to [facility] recently to consult with the head of [...]
--- OUTSIDE RECORDS SUMMARY | 2018-10-18 23:34 | XMS REPORT | Encounter Summary ---
Author Author [facility] Organization [facility] Address Unknown Phone Unavailable Care Team Providers Care High School Science Teacher Name Role Phone Sae Gu MD PCP Sae Allen MD Unavailable Luisa Call DO Unavailable Nikita Armijo MD Unavailable Isai Parra MD Unavailable Shamkea Ashton MD Unavailable Salvador Markham MD 3 Salvador Markham MD Unavailable Encounter Details Date Type Department Care Team Description 09/05/2018 Documentation [facility] Nikita Armijo MD Physicians-Neurology [address] [facility] [place] [address] 07[address] [facility] [phone] [place] [address] Social History Tobacco Use Types Packs/Day Years Used Date Never Smoker Smokeless Tobacco: Never Used Alcohol Use Drinks/Week oz/Week Comments Yes Very Rare Sex Assigned at Date Recorded Not on file as of this encounter Progress Notes * Anca Garcia, RN - 09/05/2018 2:21 PM CDT Received [facility] faxed records, will give to MR to upload into system. in this encounter Plan of Treatment Not on fileas of this encounter Visit Diagnoses Not on filein this encounter
--- OUTSIDE RECORDS SUMMARY | 2018-10-18 23:35 | XMS REPORT | Encounter Summary ---
Author Author [facility] Organization [facility] Address Unknown Phone Unavailable Care Team Providers Care Brake Linings Coater Name Role Phone Sae Gu MD PCP Sae Allen MD Unavailable Luisa Call DO Unavailable Nikita Armijo MD Unavailable Isai Parra MD Unavailable Shameka Ashton MD Unavailable Salvador Markham MD 3 Salvador Markham MD Unavailable Reason for Visit * Reason Comments Follow Up Encounter Details Date Type Department Care Team Description 08/23/2018 Office Visit [facility] Nikita Armijo MD Neuropathy (Primary Dx); Physicians-Neurology [address] [place] [facility] [place] [address] amyloidosis (HCC); [address] [phone] Orthostatic [place], [place] lightheadedness [phone] Social History Tobacco Use [...] the patient but he is going to [facility] tomorrow for second opinion. The patient is [...] Take 20 mg by mouth daily. Vit A,C,Q-Kpvw-Hzjjuz (ICAPS AREDS) 14,320-226-200 beij-nj-cvrz cap Take 1 capsule by mouth daily. [...] is going for a second opinion at [facility] tomorrow before he starts treatment. His neuropathic [...] This note was in part completed with [employer], a speech recognition software. Some grammatical and physical director errors may have occurred. 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
--- OUTSIDE RECORDS SUMMARY | 2018-10-18 23:35 | XMS REPORT | Encounter Summary ---
Author Author [facility] Organization [facility] Address Unknown Phone Unavailable Care Team Providers Care Bundle Breaker Name Role Phone Sae Gu MD PCP Sae Allen MD Unavailable Luisa Call DO Unavailable Nikita Armijo MD Unavailable Isai Parra MD Unavailable Shameka Ashton MD Unavailable Reason for Visit * Reason Comments Heme/Onc Care Encounter Details Date Type Department Care Team Description 08/08/[address] [facility] Angella Rincon MD Amyloidosis, unspecified Cancer Center - [facility] Exam [address] [facility] type (HCC) (Primary Dx ); [place] [address] Multiple myeloma, [address] [facility] [phone] [place] [address] unspecified (HCC) [phone] [place] Herbert, TELEPHONE MAINTAINER-CHIEF MEDICAL PHYSICIST [address] [facility] [place] [address] [phone] Social History Tobacco Use Types Packs/Day Years [...] marked as necessary. Physician/Surgeon: Madeleine Dunn APRN Respiratory Clinician; Beata Loya Scrub: Want Ad Receiver: Lucinda Bingham Prep Area: Left iliac crest [...] Organization Address City/[facility]/Zipcode Phone Number MAIN LAB [address] [place] [address] * FE STAIN (08/08/2018 3:43 PM) Bone Marrow FE SEE PATHOLOGY REPORT MAIN LAB Specimen Bone Marrow - Bone Marrow Performing Organization Address City/[facility]/Zipcode Phone Number MAIN LAB [address] [place] [address] * CHROMOSOMES FISH DNA PROBE (08/08/2018 3:43 PM) Chromosomes Fish DNA SEE RAILROAD INSPECTOR FOR REPORT MAIN LAB Probe Specimen Bone Marrow Performing Organization Address City/[facility]/Zipcode Phone Number MAIN LAB [address] [place] [address] * CHROMOSOMES BONE MARROW (08/08/2018 3:43 PM) Chromosomes Bone Marrow SEE RAILROAD INSPECTOR FOR REPORT MAIN LAB Specimen Bone Marrow Performing Organization Address City/[facility] Phone Number MAIN LAB [address] [place] [address] * BONE MARROW BIOPSY (08/08/2018 3:43 PM) Bone Marrow Bx SEE PATHOLOGY REPORT MAIN LAB Specimen Bone Marrow - Bone Marrow Performing Organization Address [facility] Phone Number MAIN LAB [address] [place] [address] * BONE MARROW ASP (08/08/2018 3:43 PM) Bone Marrow Asp SEE PATHOLOGY REPORT MAIN LAB Specimen Bone Marrow - Bone Marrow Performing Organization Address [facility] Phone Number [facility] LAB [address] [place] [address] * BIOPSY BONE MARROW PROCEDURE (08/08/2018 3:00 [...] procedure well. CHELSEY Loja Performing Organization Address [facility]/State/Zipcode Phone Number OTHER OUTSIDE LAB in this encounter Visit Diagnoses Diagnosis Amyloidosis, unspecified type (HCC) - Primary Multiple myeloma, remission status unspecified (HCC)
--- OUTSIDE RECORDS SUMMARY | 2018-10-18 23:35 | XMS REPORT | Encounter Summary ---
Author Author [facility] Organization [facility] Address Unknown Phone Unavailable Care Team Providers Care Preparation Center Coordinator Name Role Phone Sae Gu MD PCP Sae Allen MD Unavailable Luisa Call DO Unavailable Nikita Armijo MD Unavailable Isai Parra MD Unavailable Shameka Ashton MD Unavailable Reason for Visit * Reason Comments Heme/Onc Care Encounter Details Date Type Department Care Team Description 08/08/[address] [facility] Angella Rincon MD Amyloidosis, unspecified Cancer Center - [facility] Exam [address] [facility] [address] type (HCC); [place] [address] Personal history of other [address] [facility] [address] [phone] [place] [address] circulatory system [phone] Social History Tobacco Use Types Packs/Day Years Used Date Never Smoker Smokeless Tobacco: Never Used Alcohol Use Drinks/Week oz/Week Comments Yes Very Rare Sex Assigned at Date Recorded Not on file as of this encounter Plan of Treatment Not on fileas of this encounter Procedures Procedure Name Priority Date/Time Associated Diagnosis Comments [place] TEST Routine 08/08/2018 Results for [...] results section. in this encounter Results * [facility] (08/08/2018 4:30 PM) Ref Lab Test Code [id number], Troponin T REFERENCE LAB REF LAB RESULT (MSAR) SEE NOTE REFERENCE LAB Test name Result Flag UnitsRefIntvl - Troponin-T 0.04 H ng/mL <=0.01 Performed by [employer], [address], [place] [address] [email or web address], Loi Wang MD, Lab. Director Performing Organization Address City/[facility]/Zipcode Phone Number REFERENCE LAB REFERENCE LAB See results for address. * MISC REFERENCE TEST (08/08/2018 4:30 PM) Test Troponin T REFERENCE LAB Reference Lab PERFORMED AT [facility] REFERENCE LAB LABORATORY-FOR REF RANGE SEE REPORT. Results Ref Lab SEE REF LAB RESULT REFERENCE LAB Specimen Mail SERUM REFERENCE LAB Performing Organization Address [facility]/Zipcode Phone Number REFERENCE LAB REFERENCE LAB See results for address. * BETA 2 MICROGLOBULIN (08/08/2018 4:30 PM) B2 Microglobulin 1.9 0.8 - 2.3 MG/L [facility] MAIN LAB Specimen Blood Performing Organization Address [facility] Phone Number [facility] MAIN LAB [address] [place] [address] * BNP (B-TYPE NATRIURETIC PEPTI) (08/08/2018 4:30 PM) B Type Natriuretic 611.0 (H) 0 - 100 PG/ML MAIN LAB Peptide Specimen Blood Performing Organization Address [facility] Phone Number [facility] MAIN LAB [address] [place] [address] * CBC AND DIFF (08/08/2018 4:30 PM) White Blood Cells 7.0 4.5 - 11.0 K/[address] [facility] RBC 4.18 (L) [...] LAB Manual Specimen Blood Performing Organization Address City/[facility]/Zipcode Phone Number [facility] [address] [place] [address] * COMPREHENSIVE METABOLIC PANEL (08/08/2018 4:30 PM) [...] for questions. Specimen Blood Performing Organization Address City/[facility]/Zipcode Phone Number [facility] [address] [place] [address] * ELECTROPHORESIS-SERUM PROTEIN (08/08/2018 4:30 PM) Total [...] Pathologist Signature INTERPRETED BY LUCERO RANGEL M.D. [facility] By the PATH SIGNATURE ABOVE, I attest that I have personally formulated the final interpretation expressed in this report and that the above diagnosis is based upon my examination of the slides and/or other material indicated in this report. Specimen Blood Performing Organization Address City/[facility]/Zipcode Phone Number [facility] [address] [place] [address] * IMMUNOGLOBULINS-IGA,IGG,IGM (08/08/2018 4:30 PM) IgG 277 (L) 762 - 1,488 MG/DL [facility] IgA 46 (L) 70 - 390 MG/DL [facility] IgM 31 (L) 38 - 328 MG/DL [facility] Specimen Blood Performing Organization Address City/[facility]/Zipcode Phone Number [facility] [address] [place] [address] * IMMUNOFIXATION, SERUM (IFES) (08/08/2018 4:30 PM) Immuno Fix-Serum NO PARAPROTEIN SEEN [facility] Pathologist Signature INTERPRETED BY LUCERO RANGEL M.D. [facility] By the PATH SIGNATURE ABOVE, I attest that I have personally formulated the final interpretation expressed in this report and that the above diagnosis is based upon my examination of the slides and/or other material indicated in this report. Specimen Blood Performing Organization Address [facility]/Zipcode Phone Number [facility] [address] [place] [address] * KAPPA/LAMBDA FREE LIGHT CHAINS (08/08/2018 4:30 PM) [place], FLC 1.20 0.33 - 1.94 MG/DL [facility] Comment: Freelite results should always be interpreted in conjunction with other laboratory tests and clinical evidence.The possibility of Antigen Excess exists and can cause Immunoassays to under estimate very high concentrations of antigen. Any discordant results should be discussed with Dr. Montaño. Lambda, FLC 4.03 (H) 0.57 - 2.63 MG/DL MAIN LAB [place]/Lambda FLC 0.30 0.26 - 1.65 MAIN LAB Specimen Blood Performing Organization Address [facility] Phone Number MAIN LAB [address] [place] [address] * LDH-LACTATE DEHYDROGENASE (08/08/2018 4:30 PM) Lactate Dehydrogenase 234 (H) 100 - 210 U/L [facility] Specimen Blood Performing Organization Address [facility] Phone Number [facility] [address] [place] [address] * PROTIME INR (PT) (08/08/2018 4:30 PM) INR 0.9 0.8 - 1.2 MAIN LAB Specimen Blood Performing Organization Address [facility] Phone Number MAIN LAB [address] [place] [address] * PTT (APTT) (08/08/2018 4:30 PM) APTT 28.9Comment: NOTE NEW 20.0 - 36.0 SEC MAIN LAB REFERENCE RANGES Specimen Blood Performing Organization Address [facility] Phone Number [facility] [address] [place] [address] in this encounter Visit Diagnoses Diagnosis Amyloidosis, unspecified type (HCC) Personal history of other diseases of the circulatory system
--- OUTSIDE RECORDS SUMMARY | 2018-10-18 23:35 | XMS REPORT | Encounter Summary ---
Author Author [facility] Organization [facility] Address Unknown Phone Unavailable Care Team Providers Care Acid Remover Name Role Phone Sae Gu MD PCP [...] (SHEBA) MD KAILA Ontiveros Required amyloidosis [address] [place] [address] (HCC) [address] [place] [address] [place] [address] Phone: Fax: Reason for Visit * Reason Comments Heme/Onc Care Encounter Details Date Type Department Care Team Description 08/18/2018 Office Visit [facility] Angella Rincon MD Neuropathy (Primary Dx); Cancer Center - [facility] Exam [address] [place]) [place] [address] amyloidosis (HCC); [address] [phone] [place], [place] [address] type [phone] Social History Tobacco Use Types Packs/Day Years [...] all paperwork requests. For Non-Urgent phone calls: [phone]- all calls left between 8 and 3:30 returned in the same business day or following morning For Urgent phone call needs: [phone]- if between 8 and 4, ask for Dr Rincon's CNCs Mary or Fanny to be paged; if after hours, ask for MD on site wastewater systems technician to be paged. For Scheduling needs: [phone] For primary care needs, such as blood [...] clinic appointment for review. AMYLOIDOSIS SUPPORT GROUP Frame Nailer: Jess [phone] (Toll-Free) or [email or web address] If you are from, [place], [place], [place], [facility], [place] or anywhere else , know you are [...] hypoalbuminemia and proteinuria patient was sent to ferryboat captain at [place] who recommended a kidney biopsy that was [...] Take 20 mg by mouth daily. Vit A,C,P-Niep-Eftffg (ICAPS AREDS) 14,320-226-200 kchr-hn-fett cap Take 1 capsule by mouth daily. [...] Fix-Serum NO PARAPROTEIN SEEN 08/08/2018 04:30 PM [place], FLC 1.20 08/08/2018 04:30 PM Lambda, FLC 4.03 (H) 08/08/2018 04:30 PM [place]/Lambda FLC 0.30 08/08/2018 04:30 PM B2 Microglobulin [...] skeltal survey showed osteopenia. Mass spect at [facility] for the kidney biopsy showed [place] Amyloidosis. [...] his renal amyloidosis, Pt is following his ferryboat captain, will start him on treatment for his [place] Amyloidosis I will send my note to pt PCP Dr. Gu, and Dr. Salvador Rincon M.D [place] Technician of Internal medicine Division of Hematologic Malignancies and Cellular Therapeutics Pager [phone] * Mary Gallego, MILLIE - 08/18/2018 12:00 PM CDT Formatting of this note may be different from the original. 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
--- OUTSIDE RECORDS SUMMARY | 2018-10-18 23:35 | XMS REPORT | Encounter Summary ---
Author Author [facility] Organization [facility] Address Unknown Phone Unavailable Care Team Providers Care Plastic Eye Technician Name Role Phone Sae Gu MD PCP Sae Allen MD Unavailable Luisa Call DO Unavailable Nikita Armijo MD Unavailable Isai Parra MD Unavailable Shameka Ashton MD Unavailable Encounter Details Date Type Department Care Team Description 08/08/2018 Hospital [facility] Angella Rincon MD Amyloidosis, unspecified Encounter [facility] 1st fl [address] ([facility]) [address] [place] [address] [place] [address] [phone] Social History Tobacco Use Types Packs/Day Years [...] by mouth 07/11/2018 mg tablet daily. Vit A,C,Q-Eqrw-Zgrasj Take 1 capsule by mouth (ICAPS AREDS) daily. 14,320-226-200 golq-rq-vtlz cap VITAMIN D 50,000 unit Take 50,000 [...] procedure are in the TEST results section. [facility] 08/08/2018 Amyloidosis (HCC) Results for this PATHOLOGY REFERENCE LAB 5:03 PM CDT procedure are in the TEST results section. [facility] TEST 08/08/2018 Amyloidosis (HCC) Results for this 5:03 PM CDT procedure are in the results section. in this encounter Results * MISCELLANEOUS SURGICAL PATHOLOGY REFERENCE LAB TEST (08/08/2018 5:03 PM) Test AMYLOID PROTEIN ID, MASS REFERENCE LAB SPECTROMETRY Reference Lab PERFORMED AT [facility] REFERENCE LAB LABORATORIES Results Ref Lab SEE [facility] TEST REFERENCE LAB Specimen Mail TISSUE, BLOCK, [id number] A1 REFERENCE LAB Performing Organization Address City/[facility] Phone Number REFERENCE LAB REFERENCE LAB See results for address. * MISCELLANEOUS SURGICAL PATHOLOGY REFERENCE LAB TEST (08/08/2018 5:03 PM) Test AMYLOID PROTEIN ID, REFERENCE LAB MICRODISSECTION, LASER CAPTURE Reference Lab PERFORMED AT [facility] REFERENCE LAB LABORATORIES Results Ref Lab SEE [facility] TEST REFERENCE LAB Specimen Mail TISSUE, BLOCK, [id number] A1 REFERENCE LAB Performing Organization Address City/[facility] Phone Number REFERENCE LAB REFERENCE LAB See results for address. * MISCELLANEOUS SURGICAL PATHOLOGY REFERENCE LAB TEST (08/08/2018 5:03 PM) Test Amyloid Protein REFERENCE LAB Identification, Paraffin Reference Lab PERFORMED AT [facility] REFERENCE LAB LABORATORIES Results Ref Lab SEE [facility] TEST REFERENCE LAB Specimen Mail Parrafin block REFERENCE LAB Performing Organization Address [facility] Phone Number REFERENCE LAB REFERENCE LAB See results for address. * [facility] TEST (08/08/2018 5:03 PM) [facility] AMPIP, Amyloid Protein ID, REFERENCE LAB Info Par, LC MS/MS [facility] Result SEE COMMENTS 08/17/2018 12:51 REFERENCE LAB PM Test ResultFlag UnitRefValue ------ Amyloid Protein ID, Par, LC MS/MS Interpretation Kidney, specimen for amyloid typing ([id number]; 07/07/2018): Involved by amyloidosis, AL (lambda)-type. A [...] the Department of Laboratory Medicine and Pathology, [facility] BBE at . Report electronically signed by Shakeel Haynes M.D. Material Received A. [id number]: Kidney, [place] 1 block Disclaimer This test was developed and its performance characteristics determined by [facility] in a manner consistent with CLIA requirements. This test has not been cleared or approved by the U.S. Food and Drug Administration. Test Performed by: [address] [address] Performing Organization Address City/State/Zipcode Phone Number REFERENCE LAB REFERENCE LAB See results for address. in this encounter Visit Diagnoses Diagnosis Amyloidosis (HCC) Amyloidosis, unspecified Admitting Diagnoses Diagnosis Amyloidosis, unspecified (HCC) Amyloidosis, unspecified
--- OUTSIDE RECORDS SUMMARY | 2018-10-18 23:35 | XMS REPORT | Encounter Summary ---
Author Author [facility] Organization [facility] Address Unknown Phone Unavailable Care Team Providers Care Hand Or Machine Paster Name Role Phone Sae Gu MD PCP Sae Allen MD Unavailable Luisa Call DO Unavailable Nikita Armijo MD Unavailable Isai Parra MD Unavailable Shameka Ashton MD Unavailable Encounter Details Date Type Department Care Team Description 08/08/2018 Hospital [facility] Angella Rincon MD Encounter [place] [facility] [address] [place] [address] [phone] [place] [address] [phone] Social History Tobacco Use Types Packs/Day Years [...] by mouth 07/11/2018 mg tablet daily. Vit A,C,Y-Ppss-Djhdvi Take 1 capsule by mouth (ICAPS AREDS) daily. 14,320-226-200 ltcv-mp-dujj cap VITAMIN D 50,000 unit Take 50,000 Units by 04/27/2018 capsule mouth twice weekly. as of this encounter Plan of Treatment Not on fileas of this encounter Procedures Procedure Name Priority Date/Time Associated Diagnosis Comments BONE MARROW 08/08/2018 Results for this 5:03 PM CDT procedure are in the results section. [facility] Routine 08/08/2018 Results for this 4:30 PM CDT procedure are in the results section. [facility] RE[facility] TEST Routine 08/08/2018 Amyloidosis, unspecified Results [...] MARROW (08/08/2018 5:03 PM) PATHOLOGY REPORT [facility] [employer] [facility] www[employer] Department of Pathology and Laboratory Medicine [address] [place] [address] Surgical Pathology Office:[phone] :[phone] SURGICAL PATHOLOGY REPORT NAME: NEGRITA MOORE SURG PATH #: [id number] MR #: [id number] ALT ID #: LOCATION: [facility] DATE OF PROCEDURE: 08/08/2018 AGE:77 SEX: [...] of Pathology and Laboratory Medicine of the [facility] ([employer]) in compliance with [...] of Pathology and Laboratory Medicine of the [facility].It has not been cleared or approved by the FDA.The FDA has determined that such clearance or approval is not necessary. Performing Organization Address City/State/Zipcode Phone Number [facility] LAB RESULTS * [facility] (08/08/2018 4:30 PM) [facility] PBNP, NT Pro BNP, S REFERENCE LAB Info [place] Miscellaneous Result SEE COMMENTS 08/10/2018 11:18 REFERENCE [...] of renal failure. Test Performed by: [address] [address] Performing Organization Address City/[facility] Phone Number REFERENCE LAB REFERENCE LAB See results for address. * [facility] REFERENCE TEST (08/08/2018 4:30 PM) Test NT Pro B Type Natriuretic REFERENCE LAB Peptide (BNP), Serum Reference Lab PERFORMED AT [facility] REFERENCE LAB LABORATORIES Results Ref Lab SEE [facility] TEST REFERENCE LAB Specimen Mail SERUM REFERENCE LAB Performing Organization Address City/[facility] Phone Number REFERENCE LAB REFERENCE LAB See results for address. * FLOW CYTOMETRY (08/08/2018 3:43 PM) PATHOLOGY REPORT [facility] [employer] [facility] www[employer] Aric Broussard MD, Director of Flow Cytometry Laboratory Department of Pathology and Laboratory Medicine [address] [place] [address] Surgical Pathology Office:[phone] :[phone] FLOW CYTOMETRY REPORT NAME: NEGRITA MOORE SURG PATH #: [id number] MR #: [id number] SPECIMEN CLASS: BILLING #: [id number] ALT ID #:LOCATION: [id number] DATE OF PROCEDURE: 08/08/2018 AGE:77 SEX: M DATE RECEIVED: 08/08/2018 : 1940TIME RECEIVED:16:59 PHYSICIAN: Mckenzie Peraels M.D. DATE OF REPORT: 08/09/2018 COPY TO:DATE [...] Plasma Cell Associated Markers (% Positive Cells): YE90=760; IV216=245; cyKappa=5; cyLambda=93; cyK/cyL ratio=0.1 Miscellaneous Markers (% Positive Cells): CD19=5; CD20=44; CD27=35; CD28=2; CD45=93; CD56=3; CD81=69; CK057=89 Cell Viability (%):n/a Number of Cells Analyzed:1,103,218 Plasma Cells Detected:1.66 Total Number of Markers:15 Summary of Marker Combinations: 81/28/138/38/45/27/20; cyKappa/cyLambda/138/117/38/45 /56/19 This test was developed and its performance characteristics determined by the [facility] Flow Cytometry Laboratory.It has not been [...]
--- OUTSIDE RECORDS SUMMARY | 2018-10-18 23:35 | XMS REPORT | Encounter Summary ---
Author Author [facility] Organization [facility] Address Unknown Phone Unavailable Care Team Providers Care Cosmetics Presser Name Role Phone Sae Gu MD [...] Destiny Quiros Records Request [address] [place] [address] Social History Tobacco Use Types Packs/Day Years [...] O2 and also Dr Sae Allen at [facility] in [place] in this encounter Plan of Treatment Not on fileas of this encounter Visit Diagnoses Not on filein this encounter
--- OUTSIDE RECORDS SUMMARY | 2018-10-18 23:35 | XMS REPORT | Encounter Summary ---
Author Author [facility] Organization [facility] Address Unknown Phone Unavailable Care Team Providers Care Senior Hr Generalist Name Role Phone Sae Gu MD PCP Sae Allen MD Unavailable Luisa Call DO Unavailable Nikita Armijo MD Unavailable Isai Parra MD Unavailable Shameka Ashton MD Unavailable Salvador Markham MD 3 Reason for Visit * Reason Comments Test Encounter Details Date Type Department Care Team Description 08/09/2018 Telephone [facility] Angella Rincon MD [facility] Exam [address] [facility] [place] [address] [address] [facility] [address] [phone] [place], [place] [phone] Social History Tobacco Use Types Packs/Day Years [...] is typically 3 weeks for results and [facility] will be starting the test tomorrow. Phone number to [place] ( ) provided by Delicia for this CNC to discuss expediting testing. Spoke with Gisel with [facility] who requested electronic order number for [...]
--- OUTSIDE RECORDS SUMMARY | 2018-10-18 23:35 | XMS REPORT | Encounter Summary ---
Author Author [facility] Organization [facility] Address Unknown Phone Unavailable Care Team Providers Care Medical Genetics Director Name Role Phone Sae Gu MD [...] Ngoc Ontiveros MD MD Required myeloma, [address] [place] [address] remission [address] [place] [address] unspecified [place], [place] ([facility] [phone] Phone: Fax: Scheduling Instructions Please try to cluster appointments with other hospital/[place] appointments if possible. Patient lives 3 hours away. * Consult, Test & Treat (Routine) Status Reason Specialty Diagnoses / Referred By Referred To Procedures Contact Contact New Request Specialty Diagnoses Angella Rincon Morie, MD Services Ngoc Ontiveros MD [address] Required myeloma, [address] [place], [place] remission status [address] [address] unspecified [place], [place] Phone: [facility] [address] Phone: Encounter Details Date Type Department Care Team Description 08/16/2018 Orders Only [facility] Angella Rincon MD Multiple myeloma, [facility] - [facility] Exam [address] [place] [address] remission [place] [address] unspecified (HCC) [address] [facility] [phone] (Primary Dx) [place] [address] [phone] Social History Tobacco Use Types Packs/Day Years [...]
--- OUTSIDE RECORDS SUMMARY | 2018-10-18 23:36 | XMS REPORT | Encounter Summary ---
Author Author [facility] Organization [facility] Address Unknown Phone Unavailable Care Team Providers Care Bulk Tank Driver Name Role Phone Sae Gu MD PCP Reason for Visit * Reason Comments General Question Encounter Details Date Type Department Care Team Description 07/19/2018 Telephone [facility] Nikita Armijo MD General Question Physicians-Neurology [address] [facility] [place] [address] [address] [facility] [phone] [place] [address] Social History Tobacco Use Types [...]
--- OUTSIDE RECORDS SUMMARY | 2018-10-18 23:36 | XMS REPORT | Encounter Summary ---
Author Author [facility] Organization [facility] Address Unknown Phone Unavailable Care Team Providers Care Electrician Ship Name Role Phone Sae Gu MD PCP Sae Allen MD Unavailable Luisa Call DO Unavailable Nikita Armijo MD Unavailable Isai Parra MD Unavailable Shameka Ashton MD Unavailable Reason for Referral * Consult, Test & Treat (Routine) Status Reason Specialty Diagnoses / Referred By Referred To Procedures Contact Contact Closed Specialty Diagnoses Angella Rincon Services Weston Briceño MD Required unspecified type [address] [place] [address] Reason for Visit * Reason Comments Heme/Onc Care * Consult, Test & Treat (Routine) Status Reason Specialty Diagnoses / Referred By Referred To Procedures Contact Contact No Auth Needed Hematology / Diagnoses Mckenzie Gu [facility] Sae Briceño III, A, MD referral Dr. BRIGHT [address] Harriet Gu [address] [place] [phone] [place], [place] [address] [address] Phone: NEW PATIENT [phone] Encounter Details Date Type Department Care Team Description 08/08/2018 Office Visit [facility] Angella Rincon MD Multiple myeloma, [facility] Center - [facility] Exam [address] [facility] remission status Cancer Center [place], [place] unspecified (HCC) [address] [phone] (Primary Dx); [place], [place] Amyloidosis, unspecified [phone] type (HCC); Personal history of other diseases [...] all paperwork requests. For Non-Urgent phone calls: [phone]- all calls left between 8 and 3:30 returned in the same business day or following morning For Urgent phone call needs: [phone]- if between 8 and 4, ask for Dr Rincon's CNCs Mary or Fanny to be paged; if after hours, ask for MD physical education aide to be paged. For Scheduling needs: [phone] For primary care needs, such as blood [...] hypoalbuminemia and proteinuria patient was sent to environmental protection geologist at [place] who recommended a kidney biopsy that was [...] Take 20 mg by mouth daily. Vit A,C,A-Klal-Ifkhsi (ICAPS AREDS) 14,320-226-200 lrne-oh-byaw cap Take 1 capsule by mouth daily. [...] Fix-Serum NO PARAPROTEIN SEEN 08/08/2018 04:30 PM [place], [facility] 1.20 08/08/2018 04:30 PM [place], FLC 4.03 (H) 08/08/2018 04:30 PM [place]/Lambda FLC 0.30 08/08/2018 04:30 PM B2 Microglobulin [...] will send the kidney biopsy slides to [facility] to evaluate the [...] care for the patient Angella Rincon M.D Bilingual Executive Assistant of Internal medicine Division of Hematologic Malignancies and Cellular Therapeutics Pager [phone] * Mary Gallego RN - 08/08/2018 1:20 [...] MD Neurology 08/08/2018 End 08/08/18 ; Pager: [phone]; Isai Parra MD Nephrology 08/08/2018 End 08/08/18 [facility] [phone] in this encounter Miscellaneous Notes * Assessment [...] will send the kidney biopsy slides to [facility] to evaluate the [...] B2 Microglobulin 1.9 0.8 - 2.3 MG/L [facility] Specimen Blood Performing Organization Address City/[facility] Phone Number [facility] [address] [phone] * BNP (B-TYPE NATRIURETIC PEPTI) (08/08/2018 4:30 PM) B Type Natriuretic 611.0 (H) 0 - 100 PG/ML [facility] Peptide Specimen Blood Performing Organization Address [facility] Phone Number [facility] [address] [place] [address] * CBC AND DIFF (08/08/2018 4:30 PM) White Blood Cells 7.0 4.5 - 11.0 K/UL [facility] RBC 4.18 (L) 4.4 - 5.5 [...] LAB Manual Specimen Blood Performing Organization Address [facility] Facility[facility] Phone Number [facility] [address] [place] [address] * COMPREHENSIVE METABOLIC PANEL (08/08/2018 4:30 PM) [...] for questions. Specimen Blood Performing Organization Address City/[facility]/Zipcode Phone Number [facility] [address] [place] [address] * ELECTROPHORESIS-SERUM PROTEIN (08/08/2018 4:30 PM) Total Protein-SEP 4.0 (L) 6.0 - 8.0 G/DL [facility] Albumin % 55.7 48 - [...] Pathologist Signature INTERPRETED BY LUCERO RANGEL M.D. [facility] By the PATH SIGNATURE ABOVE, I attest that I have personally formulated the final interpretation expressed in this report and that the above diagnosis is based upon my examination of the slides and/or other material indicated in this report. Specimen Blood Performing Organization Address [facility] Facilitycode Phone Number [facility] [address] [place] [address] * IMMUNOGLOBULINS-IGA,IGG,IGM (08/08/2018 4:30 PM) IgG 277 (L) 762 - 1,488 MG/DL [facility] IgA 46 (L) 70 - 390 MG/DL [facility] IgM 31 (L) 38 - 328 MG/DL [facility] Specimen Blood Performing Organization Address [facility] Facility[facility] Phone Number [facility] [address] [place] [address] * IMMUNOFIXATION, SERUM (IFES) (08/08/2018 4:30 PM) Immuno Fix-Serum NO PARAPROTEIN SEEN [facility] Pathologist Signature INTERPRETED BY LUCERO RANGEL M.D. [facility] By the PATH SIGNATURE ABOVE, I attest that I have personally formulated the final interpretation expressed in this report and that the above diagnosis is based upon my examination of the slides and/or other material indicated in this report. Specimen Blood Performing Organization Address [facility] Phone Number [facility] [address] [place] [address] * KAPPA/LAMBDA FREE LIGHT CHAINS (08/08/2018 4:30 PM) [place], [facility] 1.20 0.33 - 1.94 MG/DL [facility] Comment: Freelite results should always be interpreted in conjunction with other laboratory tests and clinical evidence.The possibility of Antigen Excess exists and can cause Immunoassays to under estimate very high concentrations of antigen. Any discordant results should be discussed with Dr. Montaño. [place], FLC 4.03 (H) 0.57 - 2.63 MG/DL [facility] [place]/Lambda F[facility] 0.30 0.26 - 1.65 [facility] Specimen Blood Performing Organization Address [facility] Phone Number [facility] [address] [place] [address] * LDH-LACTATE DEHYDROGENASE (08/08/2018 4:30 PM) Lactate Dehydrogenase 234 (H) 100 - 210 U/L [facility] Specimen Blood Performing Organization Address [facility] Phone Number [facility] [address] [place] [address] * PROTIME INR (PT) (08/08/2018 4:30 PM) INR 0.9 0.8 - 1.2 [facility] Specimen Blood Performing Organization Address [facility] Phone Number [facility] [address] [place] [address] * PTT (APTT) (08/08/2018 4:30 PM) APTT 28.9Comment: NOTE NEW 20.0 - 36.0 SEC [facility] REFERENCE RANGES Specimen Blood Performing Organization Address [facility] Phone Number [facility] [address] [place] [address] * CHROMOSOMES FISH DNA PROBE (08/08/2018 3:43 PM) Chromosomes Fish DNA SEE PLASTERER MAINTENANCE FOR REPORT [facility]IN [facility] Probe Specimen Bone Marrow Performing Organization Address [facility] Phone Number [facility] [address] [place] [address] * CHROMOSOMES BONE MARROW (08/08/2018 3:43 PM) Chromosomes Bone Marrow SEE PLASTERER MAINTENANCE FOR REPORT MAIN LAB Specimen Bone Marrow Performing Organization Address [facility] Facility[facility] Phone Number MA[facility] LAB [address] [place] [address] * LEUKEMIA/LYMPHOMA PNL, BONE MARROW (08/08/2018 3:43 PM) Leuk/Lymph Interpretation SEE PATHOLOGY REPORT MAIN LAB Specimen/LLM BONE MARROW [facility]IN LAB Specimen Bone Marrow - Bone Marrow Performing Organization Address City/[facility]/Zipcode Phone Number MAIN LAB [address] [place] [address] * FE STAIN (08/08/2018 3:43 PM) Bone Marrow FE SEE PATHOLOGY REPORT MAIN LAB Specimen Bone Marrow - Bone Marrow Performing Organization Address City/[facility]/Zipcode Phone Number MAIN LAB [address] [place] [address] * BONE MARROW BIOPSY (08/08/2018 3:43 PM) Bone Marrow Bx SEE PATHOLOGY REPORT MAIN LAB Specimen Bone Marrow - Bone Marrow Performing Organization Address [facility]/Zipcode Phone Number MAIN LAB [address] [place] [address] * BONE MARROW ASP (08/08/2018 3:43 PM) Bone Marrow Asp SEE PATHOLOGY REPORT MAIN LAB Specimen Bone Marrow - Bone Marrow Performing Organization Address [facility] Phone Number [facility] [address] [place] [address] * METASTATIC SKELETAL SURVEY (08/08/2018 3:06 PM) [...] procedure well. CHELSEY Loja Performing Organization Address City/[facility] Phone Number OTHER OUTSIDE LAB in this encounter Visit Diagnoses Diagnosis Multiple myeloma, remission status unspecified (HCC) - Primary Amyloidosis, unspecified type (HCC) Personal history of other diseases of the circulatory system Neuropathy Mononeuritis of unspecified site Proteinuria, unspecified type
--- OUTSIDE RECORDS SUMMARY | 2018-10-18 23:36 | XMS REPORT | Encounter Summary ---
Author Author [facility] Organization [facility] Address Unknown Phone Unavailable Care Team Providers Care Sales Representative Graphic Art Name Role Phone Sae Gu MD PCP Sae Allen MD Unavailable Luisa Call DO Unavailable Nikita Armijo MD Unavailable Isai Parra MD Unavailable Shameka Ashton MD Unavailable Reason for Visit * Reason Comments Navigation Assessment Encounter Details Date Type Department Care Team Description 08/05/2018 Telephone [facility] Angella Rincon MD Navigation Assessment [facility] Exam [address] [facility] [phone] [place] [address] [phone] Social History Tobacco Use Types Packs/Day Years [...] Patient Name: Keo Whitt : 1940 Insurance: Medicare/[facility] Appointment Info: Future Appointments Date Time Provider Department Center 08/08/2018 1:20 PM Angella Rincon MD [facility] Exam 08/30/2018 1:00 PM NON-IMAGING [...] Amyloidosis. Comments: See notes from Neurologist and Planting Machine Operator. Can be found in O2. in this encounter Plan of Treatment Not on fileas of this encounter Visit Diagnoses Not on filein this encounter
[2018-10-18] MEDS: POTASSIUM CL 10 MEQ/50 ML IVPB (PRE-MIX) IV SCH (23:43)
[2018-10-18] MEDS: MAGNESIUM 1 GM/D5W 100 ML IVPB IV SCH (23:44)
[2018-10-18] MEDS ORDERED: NITROGLYCERIN 0.4 MG SL TABS BTL 25'S SL PRN (23:45)
[2018-10-18] MEDS ORDERED: morphine INJ 4 MG/ML 1 ML (VIAL/SYRINGE) IV PRN (23:45)
[2018-10-18 23:46] VITALS: BP 143/78
[2018-10-19] VITALS (8 sets, daily range): BP systolic 98–137; BP diastolic 60–97
[2018-10-19] MEDS ORDERED: RT-ALBUTEROL/IPRATROPIUM 3 ML (DUONEB) VIAL INH PRN (00:15)
[2018-10-19] MEDS: POTASSIUM CL 10 MEQ/50 ML IVPB (PRE-MIX) IV SCH ×3 (00:40→02:51)
[2018-10-19] MEDS: MAGNESIUM 1 GM/D5W 100 ML IVPB IV SCH (00:40)
[2018-10-19] MEDS: NS IV 1000 ML 1,000 ML IV SCH (01:43)
[2018-10-19 03:24] LABS: BASOPHILS % (AUTO) 0 % (0-10); EOSINOPHILS # (AUTO) 0.2 10^3/uL (0.0-0.3); EOSINOPHILS % (AUTO) 2 % (0-10); HEMATOCRIT 29 % (40-54); HEMOGLOBIN 9.8 G/DL (13.3-17.7); LYMPHOCYTES # (AUTO) 0.7 X 10^3 (1.0-4.0); LYMPHOCYTES % (AUTO) 9 % (12-44); MEAN CORPUSCULAR HEMOGLOBIN 32 PG (25-34); MEAN CORPUSCULAR HGB CONC 34 G/DL (32-36); MEAN CORPUSCULAR VOLUME 93 FL (80-99); MEAN PLATELET VOLUME 11.4 FL (7.4-10.4); MONOCYTES # (AUTO) 0.4 X 10^3 (0.0-1.0); MONOCYTES % (AUTO) 6 % (0-12); NEUTROPHILS # (AUTO) 6.3 X 10^3 (1.8-7.8); NEUTROPHILS % (AUTO) 83 % (42-75); PLATELET COUNT 155 10^3/uL (130-400); RED BLOOD COUNT 3.08 10^6/uL (4.35-5.85); RED CELL DISTRIBUTION WIDTH 13.9 % (10.0-14.5); WHITE BLOOD COUNT 7.5 10^3/uL (4.3-11.0)
[2018-10-19 03:47] LABS: ALANINE AMINOTRANSFERASE 18 U/L (0-55); ALKALINE PHOSPHATASE 65 U/L (40-136); BILIRUBIN,TOTAL 0.3 MG/DL (0.1-1.0); BUN/CREATININE RATIO 14; CALCIUM 7.4 MG/DL (8.5-10.1); CARBON DIOXIDE 32 MMOL/L (21-32); CHLORIDE 91 MMOL/L (98-107); CHOLESTEROL 147 MG/DL (< 200); CREATININE SERUM 0.95 MG/DL (0.60-1.30); GFR ESTIMATED > 60; GLUCOSE 100 MG/DL (70-105); HDL CHOLESTEROL 74 MG/DL (40-60); MAGNESIUM 1.6 MG/DL (1.8-2.4); SODIUM 130 MMOL/L (135-145); TOTAL PROTEIN 3.3 GM/DL (6.4-8.2); TRIGLYCERIDES 76 MG/DL (<150); VLDL CHOLESTEROL 15 MG/DL (5-40)
[2018-10-19 03:50] LABS: POTASSIUM 2.5 MMOL/L (3.6-5.0)
[2018-10-19 03:54] LABS: MYOGLOBIN SERUM 176.4 NG/ML (10.0-92.0)
[2018-10-19] MEDS: ASPIRIN E.C. 81 MG (ECOTRIN) TAB PO SCH ×2 (09:00→09:27)
[2018-10-19] MEDS: RT-ALBUTEROL/IPRATROPIUM 3 ML (DUONEB) VIAL INH SCH (09:03)
[2018-10-19] MEDS ORDERED: VIT1CAPS14 PO (09:09)
[2018-10-19] MEDS ORDERED: TAMS0.4C2 PO (09:09)
[2018-10-19] MEDS ORDERED: ONDA8TAB13 PO (09:09)
[2018-10-19] MEDS ORDERED: HYDR20TA2 PO (09:09)
[2018-10-19] MEDS ORDERED: FLDR.1T PO (09:09)
[2018-10-19] MEDS ORDERED: LOPE2TAB34 PO (09:09)
[2018-10-19] MEDS ORDERED: NYST1POW22 TOP (09:09)
[2018-10-19] MEDS ORDERED: HYDR-3812 PO (09:09)
[2018-10-19] MEDS ORDERED: BETH25TA PO (09:09)
[2018-10-19] MEDS ORDERED: POLY17PO6 PO (09:09)
[2018-10-19] MEDS ORDERED: BISA10SU6 RC (09:09)
[2018-10-19] MEDS ORDERED: TEMA15CA PO (09:09)
--- NOTE | 2018-10-19 09:10 | History & Physical-Hospitalist ---
History of Present Illness HPI/Chief Complaint Pt is a 78yoCM with a PMH of amyloidosis and recent hospitalization for hyponatremia who presented to the ER due to a syncopal episode on the toilet. His states he had a hard day with therapy and thinks that may have precipitated this. He was sitting on the toilet to have BM when he passed out. He does not remember anything about this. His states he was completely unconscious and it took about 15 minutes for him to come around and EMS was called to the [place]. In the ER he was found to have hypokalemia of 2.5 a mildly elevated troponin and was admitted for NSTEMI and further management. Source: patient Date Seen 10/19/18 Time Seen by a Provider: 08:15 Attending Physician Daniel Boss MD PCP Sae Gu DO Referring Physician Date of Admission Oct 18, 2018 at 22:08 Home Medications & Allergies Home Medications Reviewed patient Home Medication Reconciliation performed by pharmacy medication reconciliations forklift technician and/or nursing. Patients Allergies have been reviewed. Allergies Allergies Coded Allergies No Known Drug Allergies ([id number]/9/18) Past Fjzwpux-Yhyawb-Fiwwmv Hx Past Med/Social Hx: Reviewed Nursing Past Med/Soc Hx Patient Social History Marrital Status: Employed/Student: retired Alcohol Use: Rarely Uses Number of Drinks Today: AA Alcohol Beverage of Choice: Beer Recreational Drug Use: Yes Drug of Choice: CANNIBUS Smoking Status: Never a Smoker 2nd Hand Smoke Exposure: No Physical Abuse Screen: No Sexual Abuse: No Recent Foreign Travel: No Contact w/other who traveled: No Recent Hopitalizations: Yes (HYPONATREMIA) Recent Infectious Disease Expo: No Immunizations Up To Date Tetanus Booster (TDap): Unknown Pediatric: No Date of Pneumonia Vaccine: April 05, 2013 Date of Influenza Vaccine: Sep 12, 2018 Seasonal Allergies Seasonal Allergies: Yes (SINUS ISSUES) Past Medical History Surgeries: Abdominal, CABG, Orthopedic, Prostatectomy Currently Using CPAP: No Currently Using BIPAP: No Cardiac: Coronary Artery Disease, High Cholesterol, Hypertension Neurological: Neuropathy Reproductive: No Sexually Transmitted Disease: No HIV/AIDS: No HEENT: Macular Degeneration Loss of Vision: Bilateral Hearing Impairment: Denies Did You Recieve Any Treatments: Yes What Type of Treatment Did You: Chemotherapy Psychosocial: Anxiety History of Blood Disorders: No Adverse Reaction to Blood Owens: No (N/A) Family History Reviewed Nursing Family Hx Congestive heart failure 03 MOTHER Family history: Thyroid disorder 09 SISTER History of - disorder 03 FATHER (RENA TRACE'S DISEASE) No Family History of: Abdominal aortic aneurysm Cancer Dementia Family history: Allergy Family history: Alzheimer's disease Family history: Arthritis Family history: Cardiovascular disease Family history: Diabetes mellitus Family history: Gastrointestinal disease Hereditary disease History of - respiratory disease Heart Disease, COPD Review of Systems Constitutional: dizziness; No fever; weakness EENTM: No blurred vision, No double vision, No nose congestion, No throat pain Respiratory: No cough, No dyspnea on exertion, No short of breath Cardiovascular: No chest pain, No edema, No palpitations; syncope Gastrointestinal: No constipation; diarrhea, loss of appetite; No nausea, No vomiting Genitourinary: No dysuria, No frequency Musculoskeletal: No joint pain, No muscle pain Skin: No lesions, No rash Psychiatric/Neurological: Other (insomnia) Physical Exam Physical Exam Vital Signs Vital Signs - First Documented 10/18/18 20:57 Temp 96.8 Pulse 70 Resp 18 B/P (MAP) 108/65 (79) Pulse Ox 94 O2 Delivery Room Air Capillary Refill : Less Than 3 Seconds Height, Weight, BMI Height: 5'10.00" Weight: 210lbs. 8.0oz. [id number]; 30.2 BMI Method:Stated General Appearance: No Apparent Distress, Chronically ill HEENT: PERRL/EOMI, Moist Mucous Membranes Neck: Non Tender, Supple Respiratory: Lungs Clear, No Respiratory Distress Cardiovascular: Regular Rate, Rhythm, No Murmur Gastrointestinal: Normal Bowel Sounds, Non Tender, Soft Extremity: Normal Capillary Refill, No Calf Tenderness Neurologic/Psychiatric: Alert, Oriented x3, Normal Mood/Affect Skin: Normal Color, Warm/Dry Results Results/Procedures Labs Laboratory Tests 10/18/18 21:02 10/19/18 03:00 10/19/18 14:56 10/20/18 07:50 Patient resulted labs reviewed. Imaging: Reviewed Imaging Report Assessment/Plan Admission Diagnosis NSTEMI Admission Status: Inpatient Order (span 2 midnights) Reason for Inpatient Admission: cardiology evaluation, possible cath, electrolyte replenishment Diagnosis/Problems Diagnosis/Problems (1) Non-STEMI (non-ST elevated myocardial infarction) Status: Acute Assessment & Plan: May be due to transient hypotension for syncopal episode Cardiology consulted, appreciate recs Telemetry (2) Vasovagal episode Status: Acute Assessment & Plan: Recurrent issue Fall risk PT/OT Continue IVF (3) Hypokalemia Status: Acute Assessment & Plan: Will replace again (4) Hypomagnesemia Status: Acute Assessment & Plan: Will replace Clinical Quality Measures DVT/VTE Risk/Contraindication: Risk Factor Score Per Nursin RFS Level Per Nursing on Admit: 4+=Very High BRYSON CHUNG MD Oct 19, 2018 09:09
[2018-10-19] MEDS: POTASSIUM CL 10MEQ/50ML IVPB 50 ML IV SCH ×4 (09:34→13:28)
[2018-10-19] MEDS: MAGNESIUM 1 GM/100 ML IVPB 100 ML IV SCH ×2 (09:41→10:42)
[2018-10-19] MEDS ORDERED: ALPR0.254 PO (10:48)
--- NOTE | 2018-10-19 11:59 | Consultation-Cardiology ---
HPI-Cardiology Cardiology Consultation Date of Consultation 10/19/18 Date of Admission Time Seen by Provider: 11:25 Indication: elevated troponin HPI Patient is a 78 y/o female with history of CAD with CABG in 2013, HLP, hyponatremia, recently diagnosed amlydosis in July 2018. Patient presented to the ER last night after having syncopal episode while on toilet. Patients reports he was unconscious for close to 15min. Denies any chest pain or dyspnea. C/o generalized weakness. Home Medications & Allergies Allergies: Coded Allergies: No Known Drug Allergies (Unverified , 09/23/18) Home Medication List Reviewed: Yes OEX-Yubwpf-Agwyuf Hx Patient Social History Marital Status: Employed/Student: retired Alcohol Use: Rarely Uses Recreational Drug Use: Yes Drug of Choice: CANNIBUS Smoking Status: Never a Smoker 2nd Hand Smoke Exposure: No Recent Foreign Travel: No Recent Infectious Disease Expo: No Recent Hopitalizations: Yes (HYPONATREMIA) Physical Abuse Screen: No Sexual Abuse: No Immunizations Up To Date Tetanus Booster (TDap): Unknown Date of Pneumonia Vaccine: April 05, 2013 Date of Influenza Vaccine: Sep 12, 2018 Past Medical History CAD, vasodepressive syncope, HLP, amyloidosis Family Medical History Significant Family History: Heart Disease, COPD Family History: Congestive heart failure 03 MOTHER Family history: Thyroid disorder 09 SISTER History of - disorder 03 FATHER (RENA TRACE'S DISEASE) No Family History of: Abdominal aortic aneurysm Cancer Dementia Family history: Allergy Family history: Alzheimer's disease Family history: Arthritis Family history: Cardiovascular disease Family history: Diabetes mellitus Family history: Gastrointestinal disease Hereditary disease History of - respiratory disease Review of Systems Constitutional: No chills, No diaphoresis; malaise, weakness EENTM: No blurred vision, No double vision, No vision loss, No epistaxis, No nose pain Respiratory: No cough, No dyspnea on exertion Cardiovascular: No chest pain, No edema, No palpitations Gastrointestinal: No abdominal pain, No constipation, No nausea, No vomiting Genitourinary: No discharge, No frequency Musculoskeletal: No back pain, No joint pain Skin: No lesions, No rash Psychiatric/Neurological: Weakness Reviewed Test Results Reviewed Test Results Lab Laboratory Tests 10/18/18 21:02: White Blood Count 8.3, Red Blood Count 2.99L, Hemoglobin 9.6L, Hematocrit 28L, Mean Corpuscular Volume 92, Mean Corpuscular Hemoglobin 32, Mean Corpuscular Hemoglobin Concent 35, Red Cell Distribution Width 14.1, Platelet Count 157, Mean Platelet Volume 11.0H, Neutrophils (%) (Auto) 86H, Lymphocytes (%) (Auto) 8L, Monocytes (%) (Auto) 6, Eosinophils (%) (Auto) 1, Basophils (%) (Auto) 0, Neutrophils # (Auto) 7.2, Lymphocytes # (Auto) 0.6L, Monocytes # (Auto) 0.5, Eosinophils # (Auto) 0.1, Basophils # (Auto) 0.0, Sodium Level 131L, Potassium Level 2.5*L, Chloride Level 91L, Carbon Dioxide Level 30, Anion Gap 10, Blood Urea Nitrogen 14, Creatinine 1.04, Estimat Glomerular Filtration Rate > 60, BUN/ Creatinine Ratio 13, Glucose Level 116H, Lactic Acid Level 1.89, Calcium Level 7.2L, Corrected Calcium 8.9, Magnesium Level 1.4L, Total Bilirubin 0.3, Aspartate Amino Transf (AST/SGOT) 27, Alanine Aminotransferase (ALT/SGPT) 18, Alkaline Phosphatase 66, Troponin I 0.47*H, C-Reactive Protein High Sensitivity 0.23, Total Protein 3.3L, Albumin 1.9L 10/18/18 21:13: Glucometer 123H 10/18/18 23:26: Glucometer 111H 10/19/18 03:00: White Blood Count 7.5, Red Blood Count 3.08L, Hemoglobin 9.8L, Hematocrit 29L, Mean Corpuscular Volume 93, Mean Corpuscular Hemoglobin 32, Mean Corpuscular Hemoglobin Concent 34, Red Cell Distribution Width 13.9, Platelet Count 155, Mean Platelet Volume 11.4H, Neutrophils (%) (Auto) 83H, Lymphocytes (%) (Auto) 9L, Monocytes (%) (Auto) 6, Eosinophils (%) (Auto) 2, Basophils (%) (Auto) 0, Neutrophils # (Auto) 6.3, Lymphocytes # (Auto) 0.7L, Monocytes # (Auto) 0.4, Eosinophils # (Auto) 0.2, Basophils # (Auto) 0.0, Sodium Level 130L, Potassium Level 2.5*L, Chloride Level 91L, Carbon Dioxide Level 32, Anion Gap 7, Blood Urea Nitrogen 13, Creatinine 0.95, Estimat Glomerular Filtration Rate > 60, BUN/ Creatinine Ratio 14, Glucose Level 100, Calcium Level 7.4L, Corrected Calcium 9.0, Magnesium Level 1.6L, Total Bilirubin 0.3, Aspartate Amino Transf (AST/SGOT ) 26, Alanine Aminotransferase (ALT/SGPT) 18, Alkaline Phosphatase 65, Troponin I 0.49*H, Total Protein 3.3L, Albumin 2.0L, Myoglobin 176.4H, Triglycerides Level 76, Cholesterol Level 147, LDL Cholesterol Direct 51, VLDL Cholesterol 15 , HDL Cholesterol 74H ECG Impression ECG Initial ECG Rhythm: Normal Sinus Physical Exam Vital Signs Vital Signs - First Documented 10/18/18 20:57 Temp 96.8 Pulse 70 Resp 18 B/P (MAP) 108/65 (79) Pulse Ox 94 O2 Delivery Room Air Capillary Refill : Less Than 3 Seconds Height, Weight, BMI Height: 5'10.00" Weight: 210lbs. 8.0oz. 95.517013fb; 30.2 BMI Method:Stated General Appearance: No Apparent Distress, WD/WN HEENT: TMs Normal, Pharynx Normal Neck: Non Tender, Supple Respiratory: Chest Non Tender, Lungs Clear Cardiovascular: Regular Rate, Rhythm, No Edema, No Gallop, No JVD, No Murmur, Normal Peripheral Pulses Gastrointestinal: Non Tender, Soft Rectal: Deferred Back: No CVA Tenderness Extremity: No Calf Tenderness, No Pedal Edema Neurologic/Psychiatric: Alert, Oriented x3, custodial manager II-XII Norm as Tested Skin: Normal Color, Warm/Dry Lymphatic: No Adenopathy A/P-Cardiology Admission Diagnosis Syncope NSTEMI CAD P Assessment/Plan Syncope- history of vasodepressive syncope, has been on Florinef as outpatient, continue to monitor. NSTEMI- mildly elevated troponin. Patient asymptomatic denying any CP or dyspnea. Will continue to monitor closely CAD- history of CABG in 2013. 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 Continue to monitor. Questionable cardiac amyloidosis that could be manifesting as congestive heart failure with systolic or diastolic heart failure, syncope with heart block and NSTMI with the position of the Amyloid protein in the coronary system HLP-maintained on statin Hypokalemia- replace, continue to monitor. Hypomagnesemia- replace, continue to monitor. Amyloidosis, Light Chain AL- diagnosed in 2017. Was intolerant to chemotherapy secondary to side effects. Follows with Dr. Markham and oncologist at . Thank you for allowing us to participate in the management of Mr. Whitt. This is Roslyn Reinoso PA-C, as a scribe for Dr. Orellana. This is Dr Orellana, Patient was seen and evaluated with Roslyn, I interviewed the patient, he is not having any chest pain. Had extensive cardiac history as described above. On examination lungs were clear to auscultation bilaterally, heart is regular rate and rhythm. He had a syncopal episode lasted for 15 minutes, he was Sitting up while he was out which made his syncope last longer. He had mild elevation in troponin. No active chest pain. No palpitation. Noted to have severe hypokalemia. He is receiving potassium and replacement. We discussed the need for cardiac catheterization to be done now on emergency basis. He requested to wait and think about it and he will discuss it with his . I will stop diuretics including Lasix at this time, patient has been maintained on Florinef as an outpatient which will be continued and will consider adding low-dose beta blockers. Few changes to the note were made using Italic Font Clinical Quality Measures DVT/VTE Risk/Contraindication: Risk Factor Score Per Nursin RFS Level Per Nursing on Admit: 4+=Very High ROSLYN BURRIS Oct 19, 2018 11:59 HIRAL ORELLANA MD Oct 19, 2018 14:56
[2018-10-19] MEDS: MICONAZOLE 2% POWDER (DESENEX AF) 90 GM TOP SCH (13:29)
[2018-10-19] MEDS ORDERED: ONDANSETRON 8 MG (ZOFRAN) ORAL DISSOLVE TAB PO PRN (13:45)
[2018-10-19] MEDS ORDERED: NON-FORMULARY MEDICATION 1 EA EA (Loperamide HCl (Loperamide) 2 MG) PO PRN (13:45)
[2018-10-19] MEDS ORDERED: HYDROCORTISONE 30 MG PO SCH (13:45)
[2018-10-19] MEDS ORDERED: LOPERAMIDE 2 MG (IMODIUM) CAP PO PRN (14:15)
--- NOTE | 2018-10-19 15:21 | Physical Therapy Progress Note ---
Therapy Progress Note Pt refused PT evaluation due to fatigue and asked to complete it tomorrow morning. Pt encouraged to participate now but Pt continued to refuse. YANELY JENSEN PT Oct 19, 2018 15:21
[2018-10-19] MEDS ORDERED: ENOXAPARIN 100 MG/1 ML (LOVENOX) SYR SC SCH (16:45)
[2018-10-19] MEDS: HYDROCORTISONE 20 MG (CORTEF) TAB PO SCH (18:59)
[2018-10-19] MEDS: BETHANECHOL 25 MG (URECHOLINE) TAB PO SCH ×2 (18:59→20:29)
[2018-10-19] MEDS: ENOXAPARIN 100 MG/1 ML (LOVENOX) SYR SC SCH (19:00)
[2018-10-19] MEDS: ACYCLOVIR 400 MG TABLET (ZOVIRAX) PO SCH (20:29)
[2018-10-19] MEDS: ROSUVASTATIN 10 MG (CRESTOR) TABLET PO SCH (20:29)
[2018-10-19] MEDS: ALPRAZolam 0.25 MG (XANAX) TAB PO SCH (20:29)
[2018-10-19] MEDS ORDERED: HYDROcodone/APAP 5 MG/325 MG (LORTAB) TAB PO PRN (20:30)
[2018-10-19] MEDS ORDERED: ONDANSETRON 4 MG/2 ML (SDV) Z0FRAN IVP PRN (20:30)
[2018-10-19] MEDS ORDERED: SENNA W/DOCUSATE (SENOKOT S) TABLET PO PRN (20:30)
[2018-10-19] MEDS ORDERED: CALCIUM CARBONATE 500 MG (TUMS) TAB.CHEW PO PRN (20:30)
[2018-10-19] MEDS ORDERED: DOCUSATE SODIUM 100 MG (COLACE) CAP PO PRN (20:30)
[2018-10-19] MEDS ORDERED: diphenhydrAMINE 25 MG TAB (BENADRYL) PO PRN (20:30)
[2018-10-19] MEDS ORDERED: ACETAMINOPHEN 500 MG TAB (TYLENOL) PO PRN (20:30)
[2018-10-19] MEDS ORDERED: NON-FORMULARY MEDICATION 1 EA EA (Acyclovir 400 MG) PO SCH (21:00)
[2018-10-20] VITALS (13 sets, daily range): BP systolic 104–155; BP diastolic 66–86
[2018-10-20] MEDS: NS IV 1000 ML 1,000 ML IV SCH (00:52)
[2018-10-20] MEDS: RT-ALBUTEROL/IPRATROPIUM 3 ML (DUONEB) VIAL INH SCH ×3 (04:12→22:21)
[2018-10-20] MEDS: ENOXAPARIN 100 MG/1 ML (LOVENOX) SYR SC SCH ×2 (06:51→17:50)
[2018-10-20] MEDS: MULTIVIT W/MINERALS TAB (THERAGRAN M) PO SCH (06:52)
[2018-10-20] MEDS: BETHANECHOL 25 MG (URECHOLINE) TAB PO SCH ×4 (06:52→21:28)
[2018-10-20] MEDS: KCL 20 MEQ TAB (K-DUR) PO SCH (06:52)
[2018-10-20] MEDS: HYDROCORTISONE 20 MG (CORTEF) TAB PO SCH ×3 (06:52→21:29)
[2018-10-20 07:57] LABS: HEMOGLOBIN 9.9 G/DL (13.3-17.7); MEAN PLATELET VOLUME 11.3 FL (7.4-10.4); RED BLOOD COUNT 3.11 10^6/uL (4.35-5.85); RED CELL DISTRIBUTION WIDTH 14.6 % (10.0-14.5)
[2018-10-20 08:15] LABS: ALANINE AMINOTRANSFERASE 19 U/L (0-55); ALBUMIN 1.9 GM/DL (3.2-4.5); ALKALINE PHOSPHATASE 64 U/L (40-136); BILIRUBIN,TOTAL 0.4 MG/DL (0.1-1.0); BUN/CREATININE RATIO 14; CALCIUM 7.3 MG/DL (8.5-10.1); CARBON DIOXIDE 29 MMOL/L (21-32); CHLORIDE 94 MMOL/L (98-107); CREATININE SERUM 0.84 MG/DL (0.60-1.30); GFR ESTIMATED > 60; GLUCOSE 84 MG/DL (70-105); SODIUM 130 MMOL/L (135-145); TOTAL PROTEIN 3.3 GM/DL (6.4-8.2)
[2018-10-20] MEDS: FLUDROCORTISONE 0.1 MG (FLORINEF) TAB PO SCH (08:47)
[2018-10-20] MEDS: MICONAZOLE 2% POWDER (DESENEX AF) 90 GM TOP SCH ×2 (08:47→21:30)
[2018-10-20] MEDS: ASPIRIN E.C. 81 MG (ECOTRIN) TAB PO SCH ×2 (08:47→08:51)
[2018-10-20] MEDS: TAMSULOSIN 0.4 MG (FLOMAX) CAP PO SCH (08:47)
[2018-10-20] MEDS: ACYCLOVIR 400 MG TABLET (ZOVIRAX) PO SCH ×2 (08:47→21:28)
[2018-10-20] MEDS ORDERED: FUROSEMIDE 40 MG (LASIX) TAB PO SCH (09:00)
[2018-10-20] MEDS ORDERED: NS IV 1000 ML 1,000 ML IV SCH (09:00)
[2018-10-20 09:22] LABS: INR 1.2 (0.8-1.4); PROTHROMBIN TIME PATIENT 15.3 SEC (12.2-14.7)
--- NOTE | 2018-10-20 09:43 | Physical Therapy Evaluation ---
PT Evaluation-General Medical Diagnosis Admission Date Oct 18, 2018 at 22:08 Medical Diagnosis: Hypokalemia Onset Date: Oct 19, 2018 Therapy Diagnosis Therapy Diagnosis: generalized weakness/debility Height/Weight Height (Feet): 5 Height (Inches): 10.00 Weight (Pounds): 210 Weight (Ounces): 8.0 Precautions Precautions/Isolations: Fall Prevention, Standard Precautions Weight Bear Status Right Lower Extremity: Right Weight Bearing/Tolerated Left Lower Extremity: Left Weight Bearing/Tolerated Referral Physician: Liss Nelson MD Reason for Referral: Evaluation/Treatment Medical History Pertinent Medical History: CABG, CAD, HTN, Macular Degenertion, Neuropathy Current History Patient admitted to med/surg after syncope episode at [facility] Home: Longterm PT Steps Into Home: 3 PT Steps Inside Home: 0 Prior/Core FIM Prior Level of Function Therapy Code Descriptions/Definitions Functional [place] Measure: 0=Not Assessed/NA 4=Minimal Assistance 1=Total Assistance 5=Supervision or Setup 2=Maximal Assistance 6=Modified [place] 3=Moderate Assistance 7=Complete [place] Therapy Quality Codes: 6 Independent with activity with or without an assistive device 5 Patient requires set up or clean up by helper. Patient completes activity by themselves 4 Supervision or touching assist (CGA). [place] provide cues , steadying assist 3 The helper provides less than half the effort to complete the activity 2 The helper provides more than half the effort to complete the activity 1 Dependent. The helper does all the effort to complete an activity 7 Patient refused to complete or attempt activity 9 The patient did not perform the activity before the current illness or injury 88 Not attempted due to Medical conditions or safety concerns Functional Abilities and Goals: Independent: Patient completed the activities by him/herself, with or without an assistive device, with no assistance from a helper. Needed Some Help: Patient needed partial assistance from another person to complete activities. Dependent: A helper completed the activities for the patient. Unknown: Not Applicable: Bed Mobility: 5 Transfers (B,C,W/C) (FIM): 5 Gait: 5 Stairs: 5 Indoor Mobility (Ambulation): Needed Some Help Stairs: Needed Some Help Prior Devices Use: Walker PT Evaluation-Current Subjective Pt awake in bed when PT arrived. Pt agreed to PT evaluation. Pain Location: No Pain Reported Objective Patient Orientation: Normal For Age Problem Solving: Fair Attachments: IV ROM/Strength ROM Upper Extremities WNL ROM Lower Extremities WNL Strength Upper Extremities WNL Strength Lower Extremities 4/5 BLE Integumentary/Posture Bowel Incontinence: No Bladder Incontinence: No Posture WFL Neuromuscular (Tone, Coordination, Reflexes) Gross motor coordination intact Sensory Vision: Functional Hearing: Hearing Aid/Aides Sensation Right Upper Extremit: Intact Sensation Left Upper Extremity: Intact Sensation Right Lower Extremit: Intact Sensation Left Lower Extremity: Intact Transfers Therapy Code Descriptions/Definitions Functional [place] Measure: 0=Not Assessed/NA 4=Minimal Assistance 1=Total Assistance 5=Supervision or Setup 2=Maximal Assistance 6=Modified [place] 3=Moderate Assistance 7=Complete [place] Transfers (B, C, W/C) (FIM): 4 Scootin Rollin Supine to/from Sit: 4 Sit to/from Stand: 4 Gait Mode of Locomotion: Walk Anticipated Mode of Locomotion: Walk Gait (FIM): 1 Distance (FIM): 1=up to 49 ft Distance: 5' Gait Level of Assist: 4 Gait Persons Needed: 1 Gait Assistive Device: FWW Balance Sitting Static: Fair Sitting Dynamic: Fair Standing Static: Fair Standing Dynamic: Fair Assessment/Needs Pt requires Min A with bed mobility and CGA with ambulation. Pt should be monitored closely due to syncope episodes with vitals monitored as well. Pt mentions potential heart cath procedure being scheduled in the near future. Pt will continue therapy to maintain current level of function. Rehab Potential: Fair PT Investment Representative Goals Usp Goals PT Usp Goals Time Frame: Oct 28, 2018 Transfers (B,C,W/C) (FIM): 6 Gait (FIM): 6 Gait distance (FIM): 3=150 ft Distance: 150' Gait Level of Assist: 6 Gait Assistive Device: FWW PT Plan Problem List Problem List: Activity Tolerance, Functional Strength, Safety, Balance, Gait, Transfer, Bed Mobility, ROM Treatment/Plan Treatment Plan: Continue Plan of Care Treatment Plan: Bed Mobility, Education, Functional Activity Angelo, Functional Strength, Gait, Safety, Therapeutic Exercise, Transfers Treatment Duration: Oct 28, 2018 Frequency: 6 times per week Estimated Hrs Per Day: .25 hour per day Patient and/or Family Agrees t: Yes Discharge Recommendations Therapy D/C Recommendations: Longterm Placement, Residential (TCU/NH) Time/GCodes Time In: 905 Time Out: 921 Total Billed Treatment Time: 16 Total Billed Treatment 1 Visit EVM - 16' FLOYD,RUDDY PT Oct 20, 2018 09:43
--- NOTE | 2018-10-20 09:52 | Cardiology Progress Note ---
Subjective Date Seen by Provider: Oct 20, 2018 Time Seen by Provider: 09:45 Subjective/Events-last exam Patient is in bed, feeling better, had a bowed movement today, mild chest discomfort Review of Systems General: No Chills, No Night Sweats, No Fatigue, No Malaise, No Appetite, No Other HEENT: No Head Aches, No Visual Changes, No Eye Pain, No Ear Pain, No Dysphasia , No Sinus Congestion, No Post Nasal Drip, No Sore Throat, No Other Pulmonary: No Dyspnea, No Cough, No Pleuritic Chest Pain, No Other Cardiovascular: No: Chest Pain, Palpitations, Orthopnea, Paroxysmal Noc. Dyspnea, Edema, Lt Headedness, Other Focused Exam Lactate Level 10/18/18 21:02: Lactic Acid Level 1.89 Objective-Cardiology Exam Last Set of Vital Signs Vital Signs 10/20/18 08:40 Temp 96.6 Pulse 104 Resp 20 B/P (MAP) 113/70 (84) Pulse Ox 94 O2 Delivery Room Air Capillary Refill : Less Than 3 Seconds I&O Intake and Output 10/20/18 00:00 Intake Total 1620 ml Output Total 800 ml Balance 820 ml Intake Oral 1620 ml Output Urine Total 800 ml General: Alert, Oriented X3, Cooperative HEENT: Atraumatic, PERRLA Neck: Supple, No JVD, No Thyromegaly Lungs: Clear to Auscultation, Normal Air Movement Heart: Regular Rate, Normal S1, Normal S2, No Murmurs Abdomen: Normal Bowel Sounds, Soft, No Tenderness, No Hepatosplenomegaly, No Masses Extremities: No Clubbing, No Cyanosis, Normal Pulses, No Tenderness/Swelling Skin: No Rashes, No Breakdown, No Significant Lesion, Other (edema) Neuro: Normal Speech, Strength at 5/5 X4 Ext, Normal Tone, Sensation Intact Psych/Mental Status: Mental Status NL, Mood NL Results Lab Laboratory Tests 10/19/18 14:56 10/20/18 07:50 A/P-Cardiology Admission Diagnosis Syncope NSTEMI CAD HLP Assessment/Plan Syncope- history of vasodepressive syncope, has been on Florinef as outpatient, better continue to monitor NSTEMI- mildly elevated troponin. patient and were asking to wait on the cardiac cath, they agreed today to proceed with the procedure CAD- history of CABG in 2013. 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 discussed in details the need for a cardiac cath, patient and his were asking to wait, they agreed today on proceeding with the procedure, ( I am not available this afternoon, I asked Dr Parra to do the procedure) Questionable cardiac amyloidosis that could be manifesting as congestive heart failure with systolic or diastolic heart failure, syncope with heart block and NSTMI with the position of the Amyloid protein in the coronary system HLP-maintained on statin Hypokalemia, continue to replace and monitor Hypomagnesemia- replace, continue to monitor. Amyloidosis, Light Chain AL- diagnosed in 2017. Was intolerant to chemotherapy secondary to side effects. Follows with Dr. Markham and oncologist at . Clinical Quality Measures DVT/VTE Risk/Contraindication: Risk Factor Score Per Nursin RFS Level Per Nursing on Admit: 4+=Very High HIRAL SANTOS MD Oct 20, 2018 09:52
--- NOTE | 2018-10-20 10:32 | Progress Note-Hospitalist ---
Subjective HPI/CC On Admission Date Seen by Provider: Oct 20, 2018 Time Seen by Provider: 10:27 Pt is a 78yoCM with a PMH of amyloidosis and recent hospitalization for hyponatremia who presented to the ER due to a syncopal episode on the toilet. His states he had a hard day with therapy and thinks that may have precipitated this. He was sitting on the toilet to have BM when he passed out. He does not remember anything about this. His states he was completely unconscious and it took about 15 minutes for him to come around and EMS was called to the [place]. In the ER he was found to have hypokalemia of 2.5 and was admitted. Subjective/Events-last exam Pt reports feeling better today. Plans to proceed with cardiac cath today. Focused Exam Lactate Level 10/18/18 21:02: Lactic Acid Level 1.89 Objective Exam Vital Signs Vital Signs Date Time Temp Pulse Resp B/P (MAP) Pulse Ox O2 Delivery O2 Flow Rate FiO2 10/20/18 08:40 96.6 104 20 113/70 (84) 94 Room Air Capillary Refill : Less Than 3 Seconds General Appearance: No Apparent Distress, WD/WN Respiratory: Lungs Clear, No Accessory Muscle Use, No Respiratory Distress Cardiovascular: Regular Rate, Rhythm, No Murmur Neurologic/Psychiatric: Alert, Oriented x3 Results/Procedures Lab Laboratory Tests 10/19/18 14:56 10/20/18 07:50 Patient resulted labs reviewed. Imaging: Reviewed Imaging Report Assessment/Plan Assessment and Plan Assess & Plan/Chief Complaint NSTEMI Diagnosis/Problems Diagnosis/Problems (1) Non-STEMI (non-ST elevated myocardial infarction) Status: Acute Assessment & Plan: troponins remains elevated history of CABG Cardiology consulted, appreciate recs Plan for Cath today (2) Vasovagal episode Status: Acute Assessment & Plan: Recurrent issue Fall risk PT/OT (3) Hypokalemia Status: Acute Assessment & Plan: Improving (4) Hypomagnesemia Status: Acute Assessment & Plan: Replaced Clinical Quality Measures DVT/VTE Risk/Contraindication: Risk Factor Score Per Nursin RFS Level Per Nursing on Admit: 4+=Very High BRYSON CHUNG MD Oct 20, 2018 10:32
[2018-10-20] MEDS ORDERED: LIDOCAINE 1% INJ 20 ML 20 ML VIAL ONE (11:28)
[2018-10-20] MEDS ORDERED: HEParin (CATH LAB) 2,000 ML IV ONE (11:28)
[2018-10-20] MEDS ORDERED: NS IV 1000 ML 0 ML ONE (11:28)
[2018-10-20] MEDS ORDERED: MIDAZOLAM 5 MG/5 ML (VERSED) VIAL ONE (16:46)
[2018-10-20] MEDS ORDERED: fentaNYL INJECTION 100 MCG/2 ML AMP ONE (16:46)
[2018-10-20] MEDS ORDERED: HEParin 1000 UNIT/ML (10ML VIAL) FOR BOLUS ONE (16:46)
--- NOTE | 2018-10-20 18:50 | Cardiac Procedure Note-CS/ASA ---
Pre-Procedure Note Pre-Op Procedure Note H&P Reviewed The H&P was reviewed, patient examined and no changes noted. Date H&P Reviewed: Oct 20, 2018 Time H&P Reviewed: 17:00 Conscious Sedation Pre-Proced Time 17:00 ASA Score 3 For ASA 3 and 4: Consider anesthesia and medical clearance. Also, for patients with a history of failed moderate sedation consider anesthesia. Airway Lungs Heart ASA score ASA 1: a normal healthy patient ASA 2: a patient with a mild systemic disease (mid diabetes, controlled hypertension, obesity ASA 3: a patient with a severe systemic disease that limits activity (angina , COPD, prior Myocardial infarction) ASA 4: a patient with an incapacitating disease that is a constant threat to life (CHF, renal failure) ASA 5: a moribund patient not expected to survive 24 hrs. (ruptured aneurysm) ASA 6: a declared brain patient whose organs are being harvested. For emergent operations, add the letter E after the classification Mallampati Classification Grade 1 Sedation Plan Analgesia, Amnesia, Plan communicated to team members, Discussed options with patient/fam, Discussed risks with patient/fam The patient is an appropriate candidate to undergo the planned procedure, sedation, and anesthesia. The patient immediately re-assessed prior to indication. Marga MACKEY MD Oct 20, 2018 18:50
[2018-10-20] MEDS ORDERED: PATIENT MAY USE OWN MEDS, ALL PO SCH (19:00)
--- NOTE | 2018-10-20 19:00 | Coronary Angiography Report ---
Coronary Angiography Report DATE OF PROCEDURE: 10/20/18 INDICATION: NSTEMI PREOPERATIVE DIAGNOSIS: NSTEMI POSTOPERATIVE DIAGNOSIS: Patent grafts, severe [place]ilkat CAD. HISTORY: This is a 78 year old gentleman with history of CAD with CABG in 2013. Recent diagnosis of amyloidosis. Presents with syncope and NSTEMI. Baseline anemia. No active bleeding. Therefore, the patient was scheduled for coronary angiography. PROCEDURES PERFORMED: 1.Coronary angiography. 2.Left heart catheterization. 3. Aortic arch angiogram. 4. SERRATO Injection. 5. SV graft angiogram. COMPLICATIONS: None. SPECIMENS: None. ESTIMATED BLOOD LOSS: 10 mL ANESTHESIA: Conscious sedation ANTICOAGULATION: none. CONTRAST: 208 ml. FLUOROSCOPY: 7.31 minutes. FLOUROSCOPY DOSE: 923 mgy. PROCEDURE DETAILS: The patient is a 78 male and was brought to the geoscience laboratory technician after informed consent was taken. All the risks and complications were explained in detail; this included the risk of bleeding, vascular damage, stroke , [place] and even . The patient was draped and prepped in the usual sterile fashion. Access was gained in the right femoral artery with a 6F sheath. LHC, Right coronary artery and SERRATO injection done with JR 4 catheter. JL 4 catheter for left coronary system. Pigtail for aortic arch angiogram - done for assessing vein grafts. FINDINGS: Heavily calcified arteries. 1.Left main: Patent. 2.LAD: Severe proximal stenosis. Stenosis severity 90%. SERRATO supplies mid LAD with diffuse disease distally. No focal stenosis. 3.Left circumflex artery: Severe mid stenosis with calcification. Distal LCX territory supplied by jump SVG to OM2 and OM3. There is OM1 with likely moderate to severe ostial stenosis in one view. LISA III flow otherwise. 4.RCA: Small, non-dominant. 5.Left heart catheterization: Aortic pressure 98/60 mmhg, LV 100/5mmhg. LVEDP 13mmhg. Normal LVEF with no wall motion abnormalities. No gradient across the aortic valve. 6. Aortic arch angiogram: Bovine arch. Porcelain aorta. No aneurysm or dissection noted. Single SV graft noted. 7. SERRATO: patent left subclavian artery. Patent SERRATO to the mid LAD with diffuse disease distally with no focal stenosis. 8. Jump SVG patent to OM 2 and OM3. CONCLUSIONS: Patent SERRATO and SVG jump graft. Severe chilkat CAD. No culprit lesion identified. No PCI performed. Normal LVEF with normal LVEDP. Aggressive medical therapy is recommended. Defer Cardiology Care to Dr Orellana. Camron Parra MD, FACP, FACC, [facility] Interventional Cardiology Marga PARRA MD Oct 20, 2018 19:00
[2018-10-20] MEDS: ALPRAZolam 0.25 MG (XANAX) TAB PO SCH (21:27)
[2018-10-20] MEDS: ROSUVASTATIN 10 MG (CRESTOR) TABLET PO SCH (21:29)
[2018-10-21 04:00] VITALS: BP 134/82
[2018-10-21 06:03] LABS: BASOPHILS % (AUTO) 0 % (0-10); EOSINOPHILS # (AUTO) 0.1 10^3/uL (0.0-0.3); EOSINOPHILS % (AUTO) 2 % (0-10); HEMATOCRIT 28 % (40-54); HEMOGLOBIN 9.5 G/DL (13.3-17.7); LYMPHOCYTES # (AUTO) 0.4 X 10^3 (1.0-4.0); LYMPHOCYTES % (AUTO) 5 % (12-44); MEAN CORPUSCULAR HEMOGLOBIN 32 PG (25-34); MEAN CORPUSCULAR HGB CONC 34 G/DL (32-36); MEAN CORPUSCULAR VOLUME 93 FL (80-99); MEAN PLATELET VOLUME 11.7 FL (7.4-10.4); MONOCYTES # (AUTO) 0.5 X 10^3 (0.0-1.0); MONOCYTES % (AUTO) 6 % (0-12); NEUTROPHILS # (AUTO) 6.7 X 10^3 (1.8-7.8); NEUTROPHILS % (AUTO) 87 % (42-75); PLATELET COUNT 146 10^3/uL (130-400); RED BLOOD COUNT 2.99 10^6/uL (4.35-5.85); RED CELL DISTRIBUTION WIDTH 14.4 % (10.0-14.5); WHITE BLOOD COUNT 7.7 10^3/uL (4.3-11.0)
[2018-10-21 06:24] LABS: BUN/CREATININE RATIO 14; CALCIUM 7.4 MG/DL (8.5-10.1); CARBON DIOXIDE 30 MMOL/L (21-32); CHLORIDE 94 MMOL/L (98-107); CREATININE SERUM 0.79 MG/DL (0.60-1.30); GFR ESTIMATED > 60; GLUCOSE 88 MG/DL (70-105); MAGNESIUM 1.5 MG/DL (1.8-2.4); SODIUM 130 MMOL/L (135-145)
[2018-10-21] MEDS: HYDROCORTISONE 20 MG (CORTEF) TAB PO SCH (06:33)
[2018-10-21] MEDS: ENOXAPARIN 100 MG/1 ML (LOVENOX) SYR SC SCH (06:33)
[2018-10-21] MEDS: MULTIVIT W/MINERALS TAB (THERAGRAN M) PO SCH (06:34)
[2018-10-21] MEDS: KCL 20 MEQ TAB (K-DUR) PO SCH (06:34)
[2018-10-21] MEDS: BETHANECHOL 25 MG (URECHOLINE) TAB PO SCH ×3 (06:34→15:33)
[2018-10-21 07:14] LABS: BAND NEUTROPHILS 0 %; BASOPHILS % (MANUAL) 0 %; EOSINOPHILS % (MANUAL) 1 %; LYMPHOCYTES % (MANUAL) 4 %; MONOCYTES % (MANUAL) 5 %; NEUTROPHILS % (MANUAL) 90 %; RBC MORPH NORMAL
[2018-10-21 07:46] VITALS: BP 155/86
[2018-10-21] MEDS: RT-ALBUTEROL/IPRATROPIUM 3 ML (DUONEB) VIAL INH SCH (07:46)
[2018-10-21 08:00] VITALS: BP 116/69
[2018-10-21] MEDS: NS IV 1000 ML 1,000 ML IV SCH ×3 (08:58→15:19)
[2018-10-21] MEDS: FLUDROCORTISONE 0.1 MG (FLORINEF) TAB PO SCH (09:00)
[2018-10-21] MEDS ORDERED: ASPIRIN E.C. 81 MG (ECOTRIN) TAB PO SCH ×2 (09:00→09:31)
[2018-10-21] MEDS: ACYCLOVIR 400 MG TABLET (ZOVIRAX) PO SCH (09:00)
[2018-10-21] MEDS: TAMSULOSIN 0.4 MG (FLOMAX) CAP PO SCH (09:00)
[2018-10-21] MEDS: MICONAZOLE 2% POWDER (DESENEX AF) 90 GM TOP SCH (09:02)
--- NOTE | 2018-10-21 09:30 | Cardiology Progress Note ---
Subjective Date Seen by Provider: Oct 21, 2018 Time Seen by Provider: 09:27 Subjective/Events-last exam Patient is in bed, feeling better, no new complaint, had a cardiac cath done yesterday and groin is healing well Review of Systems General: No Chills, No Night Sweats; Fatigue, Malaise; No Appetite, No Other HEENT: No Head Aches, No Visual Changes, No Eye Pain, No Ear Pain, No Dysphasia , No Sinus Congestion, No Post Nasal Drip, No Sore Throat, No Other Pulmonary: Dyspnea; No Cough, No Pleuritic Chest Pain, No Other Cardiovascular: No: Chest Pain, Palpitations, Orthopnea, Paroxysmal Noc. Dyspnea, Edema, Lt Headedness, Other Focused Exam Lactate Level 10/18/18 21:02: Lactic Acid Level 1.89 Objective-Cardiology Exam Last Set of Vital Signs Vital Signs 10/21/18 10/21/18 04:00 07:46 Temp 97.4 Pulse 60 Resp 18 B/P (MAP) 134/82 (99) Pulse Ox 94 O2 Delivery Room Air Capillary Refill : Less Than 3 Seconds I&O Intake and Output 10/21/18 00:00 Intake Total 880 ml Output Total 900 ml Balance -20 ml Intake Oral 880 ml Output Urine Total 900 ml # Voids 2 # Bowel Movements 2 General: Alert, Oriented X3, Cooperative HEENT: Atraumatic, PERRLA Neck: Supple, No JVD, No Thyromegaly Lungs: Clear to Auscultation, Normal Air Movement Heart: Regular Rate, Normal S1, Normal S2, No Murmurs Abdomen: Normal Bowel Sounds, Soft, No Tenderness, No Hepatosplenomegaly, No Masses Extremities: No Clubbing, No Cyanosis, Normal Pulses, No Tenderness/Swelling Skin: No Rashes, No Breakdown, No Significant Lesion, Other (edema) Neuro: Normal Speech, Strength at 5/5 X4 Ext, Normal Tone, Sensation Intact Psych/Mental Status: Mental Status NL, Mood NL Results Lab Laboratory Tests 10/21/18 05:30 A/P-Cardiology Admission Diagnosis Syncope NSTEMI CAD HLP Assessment/Plan Syncope- history of vasodepressor syncope, has been on Florinef as outpatient, better continue to monitor NSTEMI- mildly elevated troponin, cardiac catheterization was carried out yesterday, showing patent bypasses with [place] arteries that are heavily calcified with moderate to severe disease in smaller segment and intermediate sized arteries. Medical therapy is recommended. CAD- history of CABG in 2014. 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 cardiac catheterization was done : Patent SERRATO and SVG jump graft. Severe [place] CAD. No culprit lesion identified. No PCI performed. Normal LVEF with normal LVEDP. Patient was refusing aspirin, educated in length about taking aspirin and Plavix which will be started today. 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 Was intolerant to chemotherapy secondary to side effects. Follows with Dr. Markham and oncologist at . Clinical Quality Measures DVT/VTE Risk/Contraindication: Risk Factor Score Per Nursin RFS Level Per Nursing on Admit: 4+=Very High HIRAL SANTOS MD Oct 21, 2018 09:30
[2018-10-21] MEDS ORDERED: CLOPIDOGREL 75 MG (PLAVIX) TABLET PO NR (09:38)
[2018-10-21] MEDS: MAGNESIUM 1 GM/100 ML IVPB 100 ML IV SCH ×2 (10:32→11:37)
[2018-10-21] MEDS ORDERED: CLOP75TA28 PO (11:05)
[2018-10-21] MEDS ORDERED: POTA20TA8 PO (11:05)
[2018-10-21] MEDS ORDERED: ASPI-983 PO (11:05)
--- NOTE | 2018-10-21 11:06 | Discharge Inst-Skilled Nursing ---
Discharge Inst-Skilled NF Chief Complaint Pt is a 78yoCM with a PMH of amyloidosis and recent hospitalization for hyponatremia who presented to the ER due to a syncopal episode on the toilet. His states he had a hard day with therapy and thinks that may have precipitated this. He was sitting on the toilet to have BM when he passed out. He does not remember anything about this. His states he was completely unconscious and it took about 15 minutes for him to come around and EMS was called to the [place]. In the ER he was found to have hypokalemia of 2.5 a mildly elevated troponin and was admitted for NSTEMI and further management. Consult/Follow Up/Orders Follow Up Appt.: On Thursday 10/[address] Gu Skilled NF Admit to: [facility] Certification ([facility]) I certify that SNF services are required to be given on an inpatient basis because of the above named patient's need for fpc care on a continuing basis for the conditions(s) for which he/she was receiving inpatient hospital services prior to his/her transfer to the SNF. Detention Facility Order: Nursing Services, Assistant Director Of Nursing-Evaluate & Treat, Physical Therapy-Evaluate & Treat Discharge Diet: Cardiac Diet Daily Activity as Tolerated: Yes New & Resume Previous Orders Bryson Nelson Oct 21, 2018 11:05 BRYSON NELSON MD Oct 21, 2018 11:06
[2018-10-21] MEDS: POTASSIUM CL 10MEQ/50ML IVPB 50 ML IV SCH ×4 (11:08→14:04)
[2018-10-21 12:00] VITALS: BP 153/78
--- NOTE | 2018-10-21 12:29 | Discharge Summary-Hospitalist ---
Diagnosis/Chief Complaint Date of Admission Oct 18, 2018 at 22:08 Date of Discharge Discharge Date: Oct 21, 2018 Admission Diagnosis NSTEMI Discharge Diagnosis (1) Non-STEMI (non-ST elevated myocardial infarction) Status: Acute Assessment & Plan: troponins remains elevated history of CABG Cardiology consulted, appreciate recs Plan for Cath done 10/20 (2) Vasovagal episode Status: Acute Assessment & Plan: Recurrent issue Fall risk PT/OT (3) Hypokalemia Status: Acute Assessment & Plan: Improving (4) Hypomagnesemia Status: Acute Assessment & Plan: Replaced Discharge Summary Procedures/Consulations Cardiology- Dr Orellana/Dr Parra Discharge Physical Exam Allergies: Coded Allergies: No Known Drug Allergies (Unverified , 09/23/18) Vitals & I&Os Vital Signs Date Time Temp Pulse Resp B/P (MAP) Pulse Ox O2 Delivery O2 Flow Rate FiO2 10/21/18 16:18 68 20 153/78 92 Room Air 10/21/18 12:00 95.6 General Appearance: No Apparent Distress, Chronically ill Gastrointestinal: Normal Bowel Sounds, Soft Neurologic/Psychiatric: Alert, Oriented x3 Hospital Course Pt was admitted following a syncopal episode. He was found to have an NSTEMI and severe hypokalemia and was admitted to the hospital. He underwent cardiac cath which revealed no culprit lesions but severe chronic disease. No stents were placed. His potassium improved with supplementation and was likely somewhat iatrogenic due to lasix use. He was started on oral potassium supplementation at discharge. I called and discussed his case with his PCP Dr Gu who will follow up on his labs and seem him early next week. Labs (last 24 hrs) Laboratory Tests 10/21/18 05:30: White Blood Count 7.7, Red Blood Count 2.99L, Hemoglobin 9.5L, Hematocrit 28L, Mean Corpuscular Volume 93, Mean Corpuscular Hemoglobin 32, Mean Corpuscular Hemoglobin Concent 34, Red Cell Distribution Width 14.4, Platelet Count 146, Mean Platelet Volume 11.7H, Neutrophils (%) (Auto) 87H, Lymphocytes (%) (Auto) 5L, Monocytes (%) (Auto) 6, Eosinophils (%) (Auto) 2, Basophils (%) (Auto) 0, Neutrophils # (Auto) 6.7, Lymphocytes # (Auto) 0.4L, Monocytes # (Auto) 0.5, Eosinophils # (Auto) 0.1, Basophils # (Auto) 0.0, Neutrophils % (Manual) 90, Lymphocytes % (Manual) 4, Monocytes % (Manual) 5, Eosinophils % (Manual) 1, Basophils % (Manual) 0, Band Neutrophils 0, Blood Morphology Comment NORMAL, Sodium Level 130L, Potassium Level 3.0L, Chloride Level 94L, Carbon Dioxide Level 30, Anion Gap 6, Blood Urea Nitrogen 11, Creatinine 0.79, Estimat Glomerular Filtration Rate > 60, BUN/Creatinine Ratio 14, Glucose Level 88, Calcium Level 7.4L, Magnesium Level 1.5L Microbiology 10/18/18 Blood Culture - Preliminary, Resulted Staph, Coag Neg (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 Pending Labs Imaging: Reviewed Imaging Report Discussion & Recommendations Discharge Planning: >30 minutes discharge planning Discharge Home Medications: Active Scripts Active Klor-Con M20 (Potassium Chloride) 20 Meq Tab.er.prt 20 Meq PO BID 30 Days Aspirin EC (Aspirin) 81 Mg Tablet.dr 81 Mg PO DAILY Clopidogrel (Clopidogrel Bisulfate) 75 Mg Tablet 75 Mg PO DAILY Reported Alprazolam 0.25 Mg Tablet 0.25 Mg PO HS Bethanechol Chloride 25 Mg Tablet 25 Mg PO ACHS Tamsulosin HCl 0.4 Mg Cap.er.24h 0.4 Mg PO DAILY Hydrocortisone 20 Mg Tablet 30 Mg PO Q12H TAKES 1 & 1/2 (20MG) TABLET Fludrocortisone Acetate 0.1 Mg Tab 0.1 Mg PO DAILY Loperamide (Loperamide HCl) 2 Mg Tablet 2 Mg PO QID PRN Nystatin 1 Each Powder.ea. TOP BID PRN APPLY TO GROIN AND SCROTUM Preservision Lutein Softgel (Vit C/Xi AC/Lut/Copper/Znox) 1 Each Capsule 1 Cap PO BID Ondansetron Odt (Ondansetron) 8 Mg Tab.rapdis 8 Mg PO Q8H PRN Vitamin D2 (Ergocalciferol (Vitamin D2)) 50,000 Unit Capsule 50,000 Units PO TUTH Rosuvastatin Calcium 10 Mg Tablet 20 Mg PO HS TAKES 2 (10MG) TABLETS Acyclovir 400 Mg Tablet 400 Mg PO BID Furosemide 40 Mg Tablet 40 Mg PO DAILY Instructions to patient/family Please see electronic discharge instructions given to patient. Clinical Quality Measures DVT/VTE Risk/Contraindication: Risk Factor Score Per Nursin RFS Level Per Nursing on Admit: 4+=Very High BRYSON CHUNG MD Oct 21, 2018 12:29
[2018-10-21 16:18] VITALS: BP 153/78
[2018-10-22] MEDS ORDERED: CLOPIDOGREL 75 MG (PLAVIX) TABLET PO SCH (09:00)
== END 2018-10-21 16:05 | DRG 281 ==
LOC: EDUNIT# 20:56 → ER 20:57 → 4TH 22:08
PROVIDERS: ADMIT Internal Medicine; ATTEND Internal Medicine
PROC: 4A023N7 Measurement of Cardiac Sampling and Pressure, Left Heart, Percutaneous Approach (ICD-10-PCS; principal; 2018-10-20)
PROC: B2111ZZ Fluoroscopy of Multiple Coronary Arteries using Low Osmolar Contrast (ICD-10-PCS; 2018-10-20)
PROC: B2181ZZ Fluoroscopy of Left Internal Mammary Bypass Graft using Low Osmolar Contrast (ICD-10-PCS; 2018-10-20)
PROC: B2121ZZ Fluoroscopy of Single Coronary Artery Bypass Graft using Low Osmolar Contrast (ICD-10-PCS; 2018-10-20)
PROC: B3101ZZ Fluoroscopy of Thoracic Aorta using Low Osmolar Contrast (ICD-10-PCS; 2018-10-20)
DX: I21.4 Non-ST elevation (NSTEMI) myocardial infarction (principal); E87.6 Hypokalemia; E85.81 Light chain (AL) amyloidosis; E87.1 Hypo-osmolality and hyponatremia; E83.42 Hypomagnesemia; I25.10 Atherosclerotic heart disease of native coronary artery without angina pectoris; E78.5 Hyperlipidemia, unspecified; Z95.1 Presence of aortocoronary bypass graft
CPT/HCPCS: 36221; 36415; 70450; 71045; 80048; 80053; 80061; 82962; 83605; 83735; 83874; 84132; 84484; 85007; 85025; 85027; 85610; 85730; 86141; 87040; 93005; 93041; 93458; 94640; 94664; 94760; 96365

== ENCOUNTER 2018-10-27 15:47 | Emergency (ER) | payer MEDICARE, OTHER ==
[~2018-10-27 15:47] MED LIST changes: +ASPI-983 PO; +BETH25TA PO; +BISA10SU6 RC; +CLOP75TA28 PO; +HYDR-3812 PO; +LOPE2TAB34 PO; +NYST1POW22 TOP; +ONDA8TAB13 PO; +POLY17PO6 PO; +POTA20TA8 PO; +TAMS0.4C2 PO; +TEMA15CA PO; +VIT1CAPS14 PO
--- OUTSIDE RECORDS SUMMARY | 2018-10-27 15:52 | XMS REPORT | Encounter Summary ---
Author Author [facility] Organization [facility] Address Unknown Phone Unavailable Care Team Providers Care Rheumatology Specialist Name Role Phone Sae Gu MD PCP Sae Allen MD Unavailable Luisa Call DO Unavailable Nikita Armijo MD Unavailable Isai Parra MD Unavailable Shameka Ashton MD Unavailable Salvador Markham MD 3 Salvador Markham MD Unavailable Encounter Details Care Team Description Date Type Department Angella Rincon MD [address] [place] [address] [phone] 10/25/2018 Orders Only [facility] [address] [phone] Social History Date Tobacco Use Types Packs/Day Years Used Never Smoker Smokeless Tobacco: Never Used Alcohol Use Drinks/Week oz/Week Comments Yes Very Rare Sex Assigned at Date Recorded Not on file Industry Job Start Date Occupation Not on file Not on file Not on file Travel End Travel History Travel Start No recent travel history available. as of this encounter Plan of Treatment Not on fileas of this encounter Visit Diagnoses Not on filein this encounter
--- OUTSIDE RECORDS SUMMARY | 2018-10-27 15:52 | XMS REPORT | Clinical Summary ---
Author Author [facility] Organization [facility] Address Unknown Phone Unavailable Care Team Providers Care [place] Commissioner Name Role Phone Sae Gu MD PCP [...] in the Health Information Management department at [phone] for further assistance in locating additional records.[facility] Allergies No Known Allergies Medications End Date Status Medication Sig Dispensed Refills Start Date Active REPATHA SURECLICK 140 Inject 140 mg 0 mg/mL injectable PEN to area(s) as 8 directed every 14 days. Active VITAMIN D 50,000 unit Take 50,000 0 201 capsule Units by 8 mouth twice weekly. Active ascorbate calcium Take 500 mg 0 (ROSA M-C PO) by mouth. Maybe a few times a week Active aspirin EC 81 mg tablet Take 81 mg by 0 mouth daily. Active Vit A,C,F-Syls-Yfeyhs Take 1 0 (ICAPS AREDS) capsule by 14,320-226-200 mouth daily. mudt-sy-ohvg cap Active ergocalciferol (vitamin Take 1 tablet 0 D2) 2,000 unit tab by mouth daily. Active CoQ10 (Ubiquinol) 200 mg Take 1 0 cap capsule by mouth daily. Active rosuvastatin (CRESTOR) 20 Take 20 mg by 0 mg tablet mouth daily. 8 Active ALPRAZolam (XANAX) 0.5 mg Take 0.5 mg 0 tablet by mouth at bedtime as needed for Anxiety. Active hydrocortisone (CORTEF) 2 Tabs PO QAM 0 10 mg tablet and 1 Tab PO 8 QPM Active warfarin (COUMADIN) 5 mg Take 5 mg by 0 tablet mouth daily. Active acyclovir (ZOVIRAX) 400 Take 400 mg 0 mg tablet by mouth every 12 hours. 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 for Mass spect to evaluate the type [...] gabapentin Muscle weakness 05/20/2018 Hyperglycemia 05/20/2018 Encounters Care Team Description Date Type Specialty Angella Rincon MD 10/25/2018 Orders Only Oncology Luli Gates APRN-NP Light chain (AL) amyloidosis (HCC) (Primary Dx) 10/24/2018 Office Visit Oncology Angella Rincon MD 10/24/2018 Hospital Lab Encounter Angella Rincon MD Light chain (AL) amyloidosis (HCC) (Primary Dx) 10/24/2018 Orders Only Oncology Angella Rincon MD 10/22/2018 Orders Only Oncology Angella Rincon MD Hospitalized Patient 10/21/2018 Telephone Oncology Angella Rincon MD Hospitalized Patient 10/19/2018 Telephone Oncology Marbella Cast, PHARMD 10/17/2018 Orders Only Oncology Marbella Cast, PHARMD 10/17/2018 Orders Only Oncology Paige Louie 10/12/2018 Documentation Oncology Angella Rincon MD Davis, Tawnya 10/11/2018 Clinical Oncology Support Angella Rincon MD Neuropathy (Primary Dx); Light chain (AL) amyloidosis (HCC); Orthostatic lightheadedness; Proteinuria, unspecified type; Anasarca 10/11/2018 Office Visit Oncology Angella Rincon MD Care Coordination 09/28/2018 Telephone Oncology Angella Rincon MD Other 09/20/2018 Telephone Oncology Angella Rincon MD Hallucinations; Fall 09/19/2018 Telephone Oncology Nikita Armijo MD 09/05/2018 Documentation Neurology Nikita Armijo MD 08/29/2018 Documentation Neurology Malaika Cloud RN 08/29/2018 Documentation Cardiology Nikita Armijo MD Neuropathy (Primary Dx); Light chain (AL) amyloidosis (HCC); Orthostatic lightheadedness 08/23/2018 Office Visit Neurology Destiny Quiros Records Request 08/19/2018 Telephone Cardiology Angella Rincon MD Neuropathy (Primary Dx); Light chain (AL) amyloidosis (HCC); Proteinuria, unspecified type 08/18/2018 Office Visit Oncology Angella Ricnon MD Multiple myeloma, remission status unspecified (HCC) ( Primary Dx) 08/16/2018 Orders Only Oncology Angella Rincon MD Test 08/09/2018 Telephone Oncology Angella Rincon MD Amyloidosis, unspecified (HCC) 08/08/2018 Hospital Lab Encounter Angella Rincon MD Kilanko, Olajire, APRN-YASSINE Amyloidosis, unspecified type (HCC) (Primary Dx); Multiple myeloma, remission status unspecified (HCC) 08/08/2018 Procedure visit Oncology Angella Rincon MD Amyloidosis, unspecified type (HCC); Personal history of other diseases of the circulatory system 08/08/2018 Lab Only Oncology Angella Rincon MD 08/08/2018 Hospital Radiology Encounter Angella Rincon MD Multiple myeloma, remission status unspecified (HCC) ( Primary Dx); Amyloidosis, unspecified type (HCC); Personal history of other diseases of the circulatory system ; Neuropathy; Proteinuria, unspecified type 08/08/2018 Office Visit Oncology Angella Rincon MD Navigation Assessment 08/05/2018 Telephone Oncology from Last 3 Months Family History Medical History Relation Name Comments Motor Neuron Disease Father Relation Name Status Comments Father Mother Social History Date Tobacco Use Types Packs/Day Years Used Never Smoker Smokeless Tobacco: Never Used Alcohol Use Drinks/Week oz/Week Comments Yes Very Rare Sex Assigned at Date Recorded Not on file Industry Job Start Date Occupation Not on file Not on file Not on file Travel End Travel History Travel Start No recent travel history available. Last Filed Vital Signs Time Taken Vital Sign Reading 10/24/2018 2:57 PM CIO Blood Pressure 132/82 10/24/2018 2:57 PM CIO Pulse 62 10/11/2018 12:16 PM CIO Temperature 37 C (98.6 F) 10/24/2018 2:57 PM CIO Respiratory Rate 15 10/24/2018 2:57 PM CIO Oxygen Saturation 98% - Inhaled Oxygen - Concentration 10/24/2018 2:57 PM CIO Weight 107.1 kg (236 lb 1.6 oz) 10/24/2018 2:57 PM CIO Height 175.3 cm (5' 9") 10/24/2018 2:57 PM CIO Body Mass Index 34.87 Plan of Treatment Health Maintenance Due Date Last Done Comments PHYSICAL (COMPREHENSIVE) 1947 EXAM DTAP/TDAP VACCINES (1 - 1958 Tdap) SHINGLES RECOMBINANT 1990 VACCINE (1 of 2) PNEUMONIA (PCV13/PPSV23) 2005 VACCINES (1 of 2 - PCV13) INFLUENZA VACCINE 06/15/2018 Procedures Comments Procedure Name Priority Date/Time Associated Diagnosis TYPE & CROSSMATCH 10/24/2018 1:39 PM CIO CBC AND DIFF Routine 10/24/2018 Light chain (AL) 1:08 PM CIO amyloidosis (HCC) COMPREHENSIVE METABOLIC Routine 10/24/2018 Light chain (AL) PANEL 1:08 PM CIO amyloidosis (HCC) ELECTROPHORESIS-SERUM Routine 10/24/2018 Light chain (AL) PROTEIN 1:08 PM CIO amyloidosis (HCC) IMMUNOGLOBULINS-IGA,IGG,I Routine 10/24/2018 Light chain (AL) GM 1:08 PM CIO amyloidosis (HCC) MAGNESIUM Routine 10/24/2018 Light chain (AL) 1:08 PM CIO amyloidosis (HCC) PHOSPHORUS Routine 10/24/2018 Light chain (AL) 1:08 PM CIO amyloidosis (HCC) PATHOLOGY REPORTS FROM 08/25/2018 OUTSIDE SCAN 4:21 PM CDT CYTOGENETICS SCAN 08/18/2018 10:49 AM CDT CYTOGENETICS SCAN 08/11/2018 2:10 PM CDT MISCELLANEOUS SURGICAL 08/08/2018 Amyloidosis (HCC) PATHOLOGY REFERENCE LAB 5:03 PM CDT TEST MISCELLANEOUS SURGICAL 08/08/2018 Amyloidosis (HCC) PATHOLOGY REFERENCE LAB 5:03 PM CDT TEST MISCELLANEOUS SURGICAL 08/08/2018 Amyloidosis (HCC) PATHOLOGY REFERENCE LAB 5:03 PM CDT TEST [facility] TEST 08/08/2018 Amyloidosis (HCC) 5:03 PM CDT BONE MARROW 08/08/2018 5:03 PM CDT [facility] TEST Routine 08/08/2018 4:30 PM CDT [facility] TEST Routine 08/08/2018 4:30 PM CDT [facility] REFERENCE TEST Routine 08/08/2018 Amyloidosis, unspecified 4:30 PM CDT type (HCC) [facility] REFERENCE TEST Routine 08/08/2018 Amyloidosis, unspecified 4:30 PM CDT type (HCC) BETA 2 MICROGLOBULIN Routine 08/08/2018 Amyloidosis, unspecified 4:30 PM CDT type (HCC) BNP (B-TYPE NATRIURETIC Routine 08/08/2018 Personal history of other PEPTI) 4:30 PM CDT diseases of the circulatory system Amyloidosis, unspecified type (HCC) CBC AND DIFF Routine 08/08/2018 Amyloidosis, unspecified 4:30 PM CDT type (HCC) COMPREHENSIVE METABOLIC Routine 08/08/2018 Amyloidosis, unspecified PANEL 4:30 PM CDT type (HCC) ELECTROPHORESIS-SERUM Routine 08/08/2018 Amyloidosis, unspecified PROTEIN 4:30 PM CDT type (HCC) IMMUNOGLOBULINS-IGA,IGG,I Routine 08/08/2018 Amyloidosis, unspecified GM 4:30 PM CDT type (HCC) IMMUNOFIXATION, SERUM Routine 08/08/2018 Amyloidosis, unspecified (IFES) 4:30 PM CDT type (HCC) KAPPA/LAMBDA FREE LIGHT Routine 08/08/2018 Amyloidosis, unspecified CHAINS 4:30 PM CDT type (HCC) LDH-LACTATE DEHYDROGENASE Routine 08/08/2018 Amyloidosis, unspecified 4:30 PM CDT type (HCC) PROTIME INR (PT) Routine 08/08/2018 Amyloidosis, unspecified 4:30 PM CDT type (HCC) PTT (APTT) Routine 08/08/2018 Amyloidosis, unspecified 4:30 PM CDT type (HCC) FLOW CYTOMETRY 08/08/2018 3:43 PM CDT LEUKEMIA/LYMPHOMA PNL, Routine 08/08/2018 Amyloidosis, unspecified BONE MARROW 3:43 PM CDT type (HCC) Multiple myeloma, remission status unspecified (HCC) FE STAIN Routine 08/08/2018 Amyloidosis, unspecified 3:43 PM CDT type (HCC) Multiple myeloma, remission status unspecified (HCC) CHROMOSOMES FISH DNA Routine 08/08/2018 Amyloidosis, unspecified PROBE 3:43 PM CDT type (HCC) Multiple myeloma, remission status unspecified (HCC) CHROMOSOMES BONE MARROW Routine 08/08/2018 Amyloidosis, unspecified 3:43 PM CDT type (HCC) Multiple myeloma, remission status unspecified (HCC) BONE MARROW BIOPSY Routine 08/08/2018 Amyloidosis, unspecified 3:43 PM CDT type (HCC) Multiple myeloma, remission status unspecified (HCC) BONE MARROW ASP Routine 08/08/2018 Amyloidosis, unspecified 3:43 PM CDT type (HCC) Multiple myeloma, remission status unspecified (HCC) METASTATIC SKELETAL Routine 08/08/2018 Amyloidosis, unspecified SURVEY 3:06 PM CDT type (HCC) BONE MARROW ASPIRATION Routine 08/08/2018 Amyloidosis, unspecified PROCEDURE 3:00 PM CDT type (HCC) Multiple myeloma, remission status unspecified (HCC) BIOPSY BONE MARROW Routine 08/08/2018 Amyloidosis, unspecified PROCEDURE 3:00 PM CDT type (HCC) Multiple myeloma, remission status unspecified (HCC) from Last 3 Months Results * TYPE & CROSSMATCH (10/24/2018 1:39 PM CIO) Units Ordered 0 [facility] Crossmatch Expires 10/27/2018 [facility] Record Check 2ND TYPE REQUIRED [facility] ABO/RH(D) O POS [facility] Antibody Screen NEG [facility] Performing Organization Address City/[facility]/Zipcode Phone Number [facility] [address] [place] [address] * CBC AND DIFF (10/24/2018 1:08 PM CIO) Only the most recent of 2 results within the time period is included. White Blood Cells 7.2 4.5 - 11.0 K/UL [facility] RBC 3.44 (L) 4.4 - 5.5 M/UL [facility] Hemoglobin 11.1 (L) 13.5 - 16.5 GM/DL [facility] Hematocrit 32.8 (L) 40 - 50 % [facility] MCV 95.3 80 - 100 FL [facility] MCH 32.3 26 - 34 PG [facility] MCHC 33.9 32.0 - 36.0 G/DL [facility] RDW 15.5 (H) 11 - 15 % [facility] Platelet Count 146 (L) 150 - 400 K/UL [facility] MPV 9.9 7 - 11 FL [facility] Segmented Neutrophils 85 (H) 41 - 77 % [facility] Bands 3 0 - 10 % [facility] Lymphocytes 6 (L) 24 - 44 % [facility] Monocytes 5 4 - 12 % [facility] Eosinophil 1 0 - 5 % [facility] ANISO PRESENT [facility] Platelet Estimate NORMAL [facility] Absolute Neutrophil Count 6.34 1.8 - 7.0 K/UL [facility] Manual Specimen Blood Performing Organization Address City/[facility]/Zipcode Phone Number [facility] [address] [place] [address] * IMMUNOGLOBULINS-IGA,IGG,IGM (10/24/2018 1:08 PM CIO) Only the most recent of 2 results within the time period is included. IgG 229 (L) 762 - 1,488 MG/DL [facility] IgA 58 (L) 70 - 390 MG/DL [facility] IgM 31 (L) 38 - 328 MG/DL [facility] Specimen Blood Performing Organization Address [facility] Phone Number [facility] [address] [phone] * ELECTROPHORESIS-SERUM PROTEIN (10/24/2018 1:08 PM CIO) Only the most recent of 2 results within the time period is included. Total Protein-SEP 3.4 (L) 6.0 - 8.0 G/DL [facility] Albumin % 51.8 48 - 68 % [facility] Alpha 1 % 9.9 (H) 2 - 6 % [facility] Alpha 2 % 21.7 (H) 5 - 15 % [facility] Beta %,Serum 9.7 9 - 17 % [facility] Gamma % 6.9 (L) 9 - 21 % [facility] Interpretation - SEP HYPOALBUMINEMIA [facility] HYPOGAMMAGLOBULINEMIA Pathologist Signature INTERPRETED BY GENARO RAYMOND M.D. [facility] By the PATH SIGNATURE ABOVE, I attest that I have personally formulated the final interpretation expressed in this report and that the above diagnosis is based upon my examination of the slides and/or other material indicated in this report. Specimen Blood Performing Organization Address [facility] Cent[facility]ode Phone Number [facility] [address] [place] [address] * PHOSPHORUS (10/24/2018 1:08 PM CIO) Phosphorus 3.4Comment: NOTE NEW REFERENCE 2.0 - 4.5 MG/DL [facility] RANGES Specimen Blood Performing Organization Address [facility] Centercode Phone Number [facility] [address] [phone] * MAGNESIUM (10/24/2018 1:08 PM CIO) Magnesium 2.0 1.6 - 2.6 mg/dL [facility] Specimen Blood Performing Organization Address [facility] Cent[facility]ode Phone Number [facility] [address] [place] [address] * COMPREHENSIVE METABOLIC PANEL (10/24/2018 1:08 PM CIO) Only the most recent of 2 results within the time period is included. Sodium 124 (L) 137 - 147 MMOL/L [facility] Potassium 3.8 3.5 - 5.1 MMOL/L [facility] Chloride 91 (L) 98 - 110 MMOL/L [facility] Glucose 88 70 - 100 MG/DL [facility] Blood Urea Nitrogen 18 7 - 25 MG/DL [facility] Creatinine 1.36 (H) 0.4 - 1.24 MG/DL [facility] Calcium 7.5 (L) 8.5 - 10.6 MG/DL [facility] Total Protein 3.6 (L) 6.0 - 8.0 G/DL [facility] Total Bilirubin 0.3 0.3 - 1.2 MG/DL [facility] Albumin 1.8 (L) 3.5 - 5.0 G/DL [facility] Alk Phosphatase 65 25 - 110 U/L [facility] AST (SGOT) 26 7 - 40 U/L [facility] CO2 30 21 - 30 MMOL/L [facility] ALT (SGPT) 16 7 - 56 U/L [facility] Anion Gap 3 3 - 12 [facility] eGFR Non 51 (L) >60 mL/min [facility] Comment: The eGFR [...] Performing Organization Address City/State/Zipcode Phone Number [facility] [address] [place] [address] * PATHOLOGY REPORTS FROM OUTSIDE SCAN (08/25/2018 4:21 PM CDT) Narrative Performed At Ordered by an unspecified provider. * CYTOGENETICS SCAN (08/18/2018 10:49 AM CDT) Only the most recent of 2 results within the time period is included. Narrative Performed At Ordered by an unspecified provider. * MISCELLANEOUS SURGICAL PATHOLOGY REFERENCE LAB TEST (08/08/2018 5:03 PM CDT) Only the most recent of 3 results within the time period is included. Test AMYLOID PROTEIN ID, MASS REFERENCE LAB SPECTROMETRY Reference Lab PERFORMED AT [facility] REFERENCE LAB LABORATORIES Results Ref Lab SEE [facility] TEST REFERENCE LAB Specimen Mail TISSUE, BLOCK, [phone] A1 REFERENCE LAB Performing Organization Address City/State/Zipcode Phone Number REFERENCE LAB REFERENCE LAB See results for address. * BONE MARROW (08/08/2018 5:03 PM CDT) PATHOLOGY REPORT [facility] [employer] [facility] [email or web address] Department of Pathology and Laboratory Medicine [address] [place] [address] Surgical Pathology Office:[phone] :[phone] SURGICAL PATHOLOGY REPORT NAME: NEGRITA MOORE SURG PATH #: [id number] MR #: [id number] ALT ID #: LOCATION: [id number] DATE OF [...] of Pathology and Laboratory Medicine of the [facility] ([employer]) in compliance with CLIA'88 [...] of Pathology and Laboratory Medicine of the [facility].It has not been cleared or approved by the FDA.The FDA has determined that such clearance or approval is not necessary. Performing Organization Address City/State/Zipcode Phone Number [facility] RESULTS * [facility] TEST (08/08/2018 5:03 PM CDT) Only the most recent of 2 results within the time period is included. [facility] AMP[facility], Amyloid Protein ID, REFERENCE LAB Info Par, LC MS/MS [facility] Result SEE COMMENTS 08/17/2018 12:51 REFERENCE LAB PM Test ResultFlag UnitRefValue ------ Amyloid Protein ID, Par, LC MS/MS Interpretation Kidney, specimen for amyloid typing ([id number]; 07/07/2018): Involved by amyloidosis, AL (lambda)-type. A [...] the Department of Laboratory Medicine and Pathology, [facility] at . Report electronically signed by Shakeel Haynes M.D. Material Received A. [id number]: Kidney, [place] 1 block Disclaimer This test was developed and its performance characteristics determined by [facility] in a manner consistent with CLIA requirements. This test has not been cleared or approved by the U.S. Food and Drug Administration. Test Performed by: [address] [address] Performing Organization Address City/[facility] Centercode Phone Number REFERENCE LAB REFERENCE LAB See results for address. * [facility] TEST (08/08/2018 4:30 PM CDT) Ref Lab Test Code [id number], Troponin T REFERENCE LAB REF LAB RESULT (MSAR) SEE NOTE REFERENCE LAB Test name Result Flag UnitsRefIntvl - Troponin-T 0.04 H ng/mL <=0.01 Performed by [facility], [address] [place] [id number] [email or web address], Loi Wang MD, Lab. Director Performing Organization Address City/[facility]/Zipcode Phone Number REFERENCE LAB REFERENCE LAB See results for address. * [facility] REFERENCE TEST (08/08/2018 4:30 PM CDT) Only the most recent of 2 results within the time period is included. Test Troponin T REFERENCE LAB Reference Lab PERFORMED AT [facility] REFERENCE LAB LABORATORY-FOR REF RANGE SEE REPORT. Results Ref Lab SEE REF LAB RESULT REFERENCE LAB Specimen Mail SERUM REFERENCE LAB Performing Organization Address City/[facility] Centercode Phone Number REFERENCE LAB REFERENCE LAB See results for address. * IMMUNOFIXATION, SERUM (IFES) (08/08/2018 4:30 PM CDT) Immuno Fix-Serum NO PARAPROTEIN SEEN [facility] Pathologist Signature INTERPRETED BY LUCERO RANGEL M.D. [facility] By the PATH SIGNATURE ABOVE, I attest that I have personally formulated the final interpretation expressed in this report and that the above diagnosis is based upon my examination of the slides and/or other material indicated in this report. Specimen Blood Performing Organization Address [facility] Centercode Phone Number [facility] [address] [phone] * KAPPA/LAMBDA FREE LIGHT CHAINS (08/08/2018 4:30 PM CDT) [place], FLC 1.20 0.33 - 1.94 MG/DL [facility] Comment: [employer] results should always be interpreted in conjunction with other laboratory tests and clinical evidence.The possibility of Antigen Excess exists and can cause Immunoassays to under estimate very high concentrations of antigen. Any discordant results should be discussed with Dr. Montaño. [place], FLC 4.03 (H) 0.57 - 2.63 MG/DL [facility] [place]/Lambda FLC 0.30 0.26 - 1.65 [facility] Specimen Blood Performing Organization Address [facility] Centercomt Phone Number [facility] [address] [place] [address] * PTT (APTT) (08/08/2018 4:30 PM CDT) APTT 28.9Comment: NOTE NEW 20.0 - 36.0 SEC [facility] REFERENCE RANGES Specimen Blood Performing Organization Address [facility] Cent[facility] Phone Number [facility] [address] [place] [address] * PROTIME INR (PT) (08/08/2018 4:30 PM CDT) INR 0.9 0.8 - 1.2 [facility] Specimen Blood Performing Organization Address [facility] Phone Number [facility] [address] [place] [address] * BNP (B-TYPE NATRIURETIC PEPTI) (08/08/2018 4:30 PM CDT) B Type Natriuretic 611.0 (H) 0 - 100 PG/ML [facility] Peptide Specimen Blood Performing Organization Address City/[facility]/Zipcode Phone Number MAIN LAB [address] [place] [address] * LDH-LACTATE DEHYDROGENASE (08/08/2018 4:30 PM CDT) Lactate Dehydrogenase 234 (H) 100 - 210 U/L [facility] Specimen Blood Performing Organization Address City/[facility]/Zipcode Phone Number [facility] [address] [place] [address] * BETA 2 MICROGLOBULIN (08/08/2018 4:30 PM CDT) B2 Microglobulin 1.9 0.8 - 2.3 MG/L [facility] Specimen Blood Performing Organization Address City/[facility] Cent[facility]ode Phone Number [facility] [address] [place] [address] * FLOW CYTOMETRY (08/08/2018 3:43 PM CDT) PATHOLOGY REPORT [facility] [employer] [facility] [email or web address] Aric Broussard MD, Director of Flow Cytometry Laboratory Department of Pathology and Laboratory Medicine [address] [place] [address] Surgical Pathology Office:[phone] :[phone] FLOW CYTOMETRY REPORT NAME: NEGRITA MOORE SURG PATH #: [id number] MR #: [id number] SPECIMEN CLASS: LC BILLING #: [id number] ALT ID #:LOCATION: [facility] DATE OF PROCEDURE: 08/08/2018 [...] in this report. +++Electronically Signed Out By+++ [facility]/08/08/2018 Interpreted by: Flaco Zhao MD 08/09/2018 ############################## ############################## ############ Lab Data: Flow Cytometry - Multiple Myeloma, Minimal Residual Disease Panel Analytic sensitivity of the lower detection limit in this assay is 0.01% Plasma Cell Associated Markers (% Positive Cells): GC36=548; LH441=701; cyKappa=5; cyLambda=93; cyK/cyL ratio=0.1 Miscellaneous Markers (% Positive Cells): CD19=5; CD20=44; CD27=35; CD28=2; CD45=93; CD56=3; CD81=69; IO066=45 Cell Viability (%):n/a Number of Cells Analyzed:1,103,218 Plasma Cells Detected:1.66 Total Number of Markers:15 Summary of Marker Combinations: 81/28/138/38/45/27/20; cyKappa/cyLambda/138/117/38/45 /56/19 This test was developed and its performance characteristics determined by the [facility].It has not been cleared or approved by the U.S. Food and Drug Administration (FDA).The FDA has determined that such clearance or approval is not necessary. Performing Organization Address City/State/Zipcode Phone Number LAB RESULTS * LEUKEMIA/LYMPHOMA PNL, BONE MARROW (08/08/2018 3:43 PM CDT) Leuk/Lymph Interpretation SEE PATHOLOGY REPORT MAIN LAB Specimen/LLM BONE MARROW MAIN LAB Specimen Bone Marrow - Bone Marrow Performing Organization Address City/[facility]/Zipcode Phone Number MAIN LAB [address] [place] [address] * CHROMOSOMES FISH DNA PROBE (08/08/2018 3:43 PM CDT) Chromosomes Fish DNA SEE ORIENTAL MEDICINE PRACTITIONER FOR REPORT MAIN LAB Probe Specimen Bone Marrow Performing Organization Address City/[facility]/Zipcode Phone Number MAIN LAB [address] [place] [address] * CHROMOSOMES BONE MARROW (08/08/2018 3:43 PM CDT) Chromosomes Bone Marrow SEE ORIENTAL MEDICINE PRACTITIONER FOR REPORT MAIN LAB Specimen Bone Marrow Performing Organization Address [facility] Centercode Phone Number MAIN LAB [address] [place] [address] * FE STAIN (08/08/2018 3:43 PM CDT) Bone Marrow FE SEE PATHOLOGY REPORT MAIN LAB Specimen Bone Marrow - Bone Marrow Performing Organization Address [facility] Centercode Phone Number MAIN LAB [address] [place] [address] * BONE MARROW ASP (08/08/2018 3:43 PM CDT) Bone Marrow Asp SEE PATHOLOGY REPORT MAIN LAB Specimen Bone Marrow - Bone Marrow Performing Organization Address [facility] Centercode Phone Number MAIN LAB [address] [place] [address] * BONE MARROW BIOPSY (08/08/2018 3:43 PM CDT) Bone Marrow Bx SEE PATHOLOGY REPORT MAIN LAB Specimen Bone Marrow - Bone Marrow Performing Organization Address [facility]/Zipcode Phone Number MAIN LAB [address] [place] [address] * METASTATIC SKELETAL SURVEY (08/08/2018 3:06 PM CDT) Impressions Performed At 1.Spotty osteopenia involving both [...] * BIOPSY BONE MARROW PROCEDURE (08/08/2018 3:00 PM CDT) Narrative Performed At [place] APRN-YASSINE 08/08/20183:51 [...] OTHER OUTSIDE LAB from Last 3 Months Insurance Payer Benefit Subscriber ID Type Phone Address Plan / Group MEDICARE MEDICARE xxxxxxxxxxx Medicare PART A AND B MUTUAL OF HOH MUTUAL OF xxxxxx-xx [facility]/HO xxxxxxxxx [place] [facility] /[facility] Advance Directives Patient has advance care planning documents, and code status on file. For more information, please contact: [facility] [address] [place] [address] Date Inactivated Comments Code Status Date Activated 07/08/2018 3:00 PM Full Code 07/07/2018 7:41 PM Provider has discussed Code Status Yes w/Patient or Family?
--- OUTSIDE RECORDS SUMMARY | 2018-10-27 15:53 | XMS REPORT | Encounter Summary ---
Author Author [facility] Organization [facility] Address Unknown Phone Unavailable Care Team Providers Care Control Systems Developer Name Role Phone Sae Gu MD PCP Sae Allen MD Unavailable Luisa Call DO Unavailable Nikita Armijo MD Unavailable Isai Parra MD Unavailable Shameka Ashton MD Unavailable Salvador Markham MD 3 Salvador Markham MD Unavailable Encounter Details Care Team Description Date Type Department Marbella Cast, PHARMD 10/17/2018 Orders Only The [facility] [address] [place] [phone] Social History Date Tobacco Use Types Packs/Day [...]
--- OUTSIDE RECORDS SUMMARY | 2018-10-27 15:53 | XMS REPORT | Encounter Summary ---
Author Author [facility] Organization [facility] Address Unknown Phone Unavailable Care Team Providers Care Corporate Strategy Associate Name Role Phone Sae Gu MD PCP Sae Allen MD Unavailable Luisa Call DO Unavailable Nikita Armijo MD Unavailable Isai Parra MD Unavailable Shameka Ashton MD Unavailable Salvador Markham MD 3 Salvador Markham MD Unavailable Encounter Details Care Team Description Date Type Department Paige Louie 10/12/2018 Documentation [facility] [address] [address] Social History Date Tobacco Use Types Packs/Day Years Used Never Smoker Smokeless Tobacco: Never Used Alcohol Use Drinks/Week oz/Week Comments Yes Very Rare Sex Assigned at Date Recorded Not on file Industry Job Start Date Occupation Not on file Not on file Not on file Travel End Travel History Travel Start No recent travel history available. as of this encounter Progress Notes * Paige Louie - 10/12/2018 2:22 PM EMBOSSING CALENDER OPERATOR SW received call from Iban Cutler at [facility] [phone] stating he has passed on information to WILMA Zimmer and instructional design specialist Beba to see if pt is able to get monotherapy, Daratumumab, during SNF stay. SW will continue to follow. Paige Louie LMSW SW later received call back from Iban Cutler stating he talked with his DON and pt can get Daratumumab treatment during his [facility] stay. SW emailed Dr. Rincon's clinic to provide update. Paige Louie LMSW SSING CALENDER OPERATOR in this encounter Plan of Treatment Not on fileas of this encounter Visit Diagnoses Not on filein this encounter
--- OUTSIDE RECORDS SUMMARY | 2018-10-27 15:53 | XMS REPORT | Encounter Summary ---
Author Author [facility] Organization [facility] Address Unknown Phone Unavailable Care Team Providers Care Masonry Instructor Name Role Phone Sae Gu MD PCP Sae Allen MD Unavailable Luisa Call DO Unavailable Nikita Armijo MD Unavailable Isai Parra MD Unavailable Shameka Ashton MD Unavailable Salvador Markham MD 3 aSlvador Markham MD Unavailable Reason for Visit * Reason Comments Care Coordination Encounter Details Care Team Description Date Type Department Angella Rincon MD [address] [place] [address] Care Coordination 09/28/2018 Telephone The [facility] [address] [address] Social History Date Tobacco Use Types Packs/Day Years Used Never Smoker Smokeless Tobacco: Never Used Alcohol Use Drinks/Week oz/Week Comments Yes Very Rare Sex Assigned at Date Recorded Not on file Industry Job Start Date Occupation Not on file Not on file Not on file Travel End Travel History Travel Start No recent travel history available. as of this encounter Miscellaneous Notes * Telephone Encounter - Mary Gallego RN - 09/28/2018 10:06 AM SHEET METAL CONTRACTOR Per Cammie, nurse for Dr Markham, notification that patient Keo Whitt remains in the hospital at this time and inpatient services will be discussing a potential transfer of care to per pt request and they will be reaching out to inpatient team. Will keep our office updated. T METAL CONTRACTOR in this encounter Plan of Treatment Not on fileas of this encounter Visit Diagnoses Not on filein this encounter
--- OUTSIDE RECORDS SUMMARY | 2018-10-27 15:53 | XMS REPORT | Encounter Summary ---
Author Author [facility] Organization [facility] Address Unknown Phone Unavailable Care Team Providers Care Transmission Supervisor Name Role Phone Sae Gu MD PCP Sae Allen MD Unavailable Luisa Call DO Unavailable Nikita Armijo MD Unavailable Isai Parra MD Unavailable Shameka Ashton MD Unavailable Salvador Markham MD 3 Salvador Markham MD Unavailable Encounter Details Care Team Description Date Type Department Angella Rincon MD [address] [place] [address] Light chain (AL) amyloidosis (HCC) (Primary Dx) 10/24/2018 Orders Only The [facility] [address] [address] Social History Date Tobacco Use Types Packs/Day Years Used Never Smoker Smokeless Tobacco: Never Used Alcohol Use Drinks/Week oz/Week Comments Yes Very Rare Sex Assigned at Date Recorded Not on file Industry Job Start Date Occupation Not on file Not on file Not on file Travel End Travel History Travel Start No recent travel history available. as of this encounter Plan of Treatment Order Schedule Name Priority Associated Diagnoses Expected: 10/24/2018 (Approximate), Expires: 10/24/2019 KAPPA/LAMBDA FREE LIGHT CHAINS Routine Light chain (AL) amyloidosis (HCC) Expected: 10/24/2018 (Approximate), Expires: 10/24/2019 TYPE & CROSSMATCH Routine Light chain (AL) amyloidosis (HCC) as of this encounter Results * PHOSPHORUS (10/24/2018 1:08 PM MICROPHONE BOOM OPERATOR) Phosphorus 3.4Comment: NOTE NEW REFERENCE 2.0 - 4.5 MG/DL [facility] RANGES Specimen Blood Performing Organization Address [facility] Phone Number [facility] [address] [place] [address] * MAGNESIUM (10/24/2018 1:08 PM MICROPHONE BOOM OPERATOR) Magnesium 2.0 1.6 - 2.6 mg/dL [facility] Specimen Blood Performing Organization Address [facility]ofl Phone Number [facility] [address] [place] [address] * IMMUNOGLOBULINS-IGA,IGG,IGM (10/24/2018 1:08 PM MICROPHONE BOOM OPERATOR) IgG 229 (L) 762 - 1,488 MG/DL [facility] IgA 58 (L) 70 - 390 MG/DL [facility] IgM 31 (L) 38 - 328 MG/DL [facility] Specimen Blood Performing Organization Address [facility] Phone Number MAIN LAB [address] [place] [address] * ELECTROPHORESIS-SERUM PROTEIN (10/24/2018 1:08 PM MICROPHONE BOOM OPERATOR) Total Protein-SEP 3.4 (L) 6.0 - 8.0 G/DL [facility] Albumin % 51.8 48 - [...] Pathologist Signature INTERPRETED BY GENARO RAYMOND M.D. [facility] By the PATH SIGNATURE ABOVE, I attest that I have personally formulated the final interpretation expressed in this report and that the above diagnosis is based upon my examination of the slides and/or other material indicated in this report. Specimen Blood Performing Organization Address [facility]ofl Phone Number [facility] [address] [place] [address] * COMPREHENSIVE METABOLIC PANEL (10/24/2018 1:08 PM MICROPHONE BOOM OPERATOR) Sodium 124 (L) 137 - 147 MMOL/L [facility] Potassium 3.8 3.5 - 5.1 MMOL/L [facility] Chloride 91 (L) 98 - 110 [...] Blood Performing Organization Address City/State/Zipcode Phone Number [facility] [address] [place] [address] * CBC AND DIFF (10/24/2018 1:08 PM MICROPHONE BOOM OPERATOR) White Blood Cells 7.2 4.5 - 11.0 [...] LAB Manual Specimen Blood Performing Organization Address City/State/Zipcode Phone Number [facility] [address] [place] [address] in this encounter Visit Diagnoses Diagnosis Light chain (AL) amyloidosis (HCC) - Primary in this encounter
--- OUTSIDE RECORDS SUMMARY | 2018-10-27 15:53 | XMS REPORT | Encounter Summary ---
Author Author [facility] Organization [facility] Address Unknown Phone Unavailable Care Team Providers Care Advertising Manager Name Role Phone Sae Gu MD PCP Sae Allen MD Unavailable Luisa Call DO Unavailable Nikita Armijo MD Unavailable Isai Parra MD Unavailable Shameka Ashton MD Unavailable Salvador Markham MD 3 Salvador Markham MD Unavailable Reason for Visit * Reason Comments Heme/Onc Care Encounter Details Care Team Description Date Type Department Angella Rincon MD [address] [place], [place] [id number] Neuropathy (Primary Dx); Light chain (AL) amyloidosis (HCC); Orthostatic lightheadedness; Proteinuria, unspecified type; Anasarca 10/11/2018 Office Visit [facility] [place] [address] [place], [place] [phone] Social History Date Tobacco Use Types Packs/Day Years Used Never Smoker Smokeless Tobacco: Never Used Alcohol Use Drinks/Week oz/Week Comments Yes Very Rare Sex Assigned at Date Recorded Not on file Industry Job Start Date Occupation Not on file Not on file Not on file Travel End Travel History Travel Start No recent travel history available. as of this encounter Last Filed Vital Signs Time Taken Vital Sign Reading 10/11/2018 12:16 PM QUALITY CONTROL INDUSTRIAL ENGINEER Blood Pressure 118/71 10/11/2018 12:16 PM QUALITY CONTROL INDUSTRIAL ENGINEER Pulse 69 10/11/2018 12:16 PM QUALITY CONTROL INDUSTRIAL ENGINEER Temperature 37 C (98.6 F) 10/11/2018 12:16 PM QUALITY CONTROL INDUSTRIAL ENGINEER Respiratory Rate 15 10/11/2018 12:16 PM QUALITY CONTROL INDUSTRIAL ENGINEER Oxygen Saturation 97% - Inhaled Oxygen - Concentration 10/11/2018 12:16 PM QUALITY CONTROL INDUSTRIAL ENGINEER Weight 94.3 kg (208 lb) 10/11/2018 12:16 PM QUALITY CONTROL INDUSTRIAL ENGINEER Height 175.3 cm (5' 9") 10/11/2018 12:16 PM QUALITY CONTROL INDUSTRIAL ENGINEER Body Mass Index 30.72 in this encounter Patient Instructions * Patient Instructions* Mary Gallego RN - 10/11/2018 12:00 PM QUALITY CONTROL INDUSTRIAL ENGINEER Your Care Team: Dr Angella Matute aPRN (Nurse Practitioner) Fanny Quiroga, Clinical Nurse Coordinator Mary Gallego, Clinical Nurse Coordinator Please provide 3-5 business days advanced notice for all refill requests. Please provide 5 business days advanced notice for all paperwork requests. For Non-Urgent phone calls: [phone]- all calls left between 8 and 3:30 returned in the same business day or following morning For Urgent phone call needs: [phone]- if between 8 and 4, ask for Dr Rincon's CNCs Mary or Fanny to be paged; if after hours, ask for MD independent contractor to be paged. For primary care needs, [...] Myeloma Support Group information, please see: [email or web address] ITY CONTROL INDUSTRIAL ENGINEER in this encounter Progress Notes * Angella Rincon MD - 10/11/2018 12:00 PM QUALITY CONTROL INDUSTRIAL ENGINEER Date of Service: 10/11/2018 Subjective: Reason for [...] due to his weakness History of Present IllnessOnc Timeline Diagnosis:AL Amyloidosis Date of diagnosis: 06/2018 [...] and proteinuria patient was sent to environmental engineer at [place] who recommended a kidney biopsy that was [...] Take 20 mg by mouth daily. Vit A,C,Q-Odfs-Nymjwr (ICAPS AREDS) 14,320-226-200 xoio-mh-kteb cap Take 1 capsule by mouth daily. [...] Fix-Serum NO PARAPROTEIN SEEN 08/08/2018 04:30 PM [place], [facility] 1.20 08/08/2018 04:30 PM [place], [facility] 4.03 (H) 08/08/2018 04:30 PM [place]/Lambda [facility] 0.30 08/08/2018 04:30 PM B2 Microglobulin [...] skeltal survey showed osteopenia. Mass spect at [facility] for the kidney biopsy showed AL [...] his renal amyloidosis, Pt is following his environmental engineer, will start him on a treatment for his AL Amyloidosis Anasarca: Possible is secondary to his treatment and his disease. It has slightly improved I will send my note to pt PCP Dr. Gu, and Dr. Salvador Rincon M.D Capacitor Tester of Internal medicine Division of Hematologic Malignancies and Cellular Therapeutics Pager [phone] ITY CONTROL INDUSTRIAL ENGINEER * Brad Owusu PHARMD - 10/11/2018 12:00 PM QUALITY CONTROL INDUSTRIAL ENGINEER Chemotherapy Education Provided patient with both written [...] this time. Medication handout(s) were provided. Brad Owusu PHARMD ITY CONTROL INDUSTRIAL ENGINEER * Mary Gallego, RN - 10/11/2018 12:00 PM QUALITY CONTROL INDUSTRIAL ENGINEER Last Myeloma Labs: with Dr Mrakham's office Pt presentation: amyloidosis; post hospitalization for hyponatremia, hypoalbuminemia in [facility]; full body swelling after hospitalization, now 208 lbs, was 170 lbs on 08/23 clinic visit Treatment: on hold; was receiving CyBorD prior to hospitalization MD Recommendations and discussion: Recommend Daratumumab monotherapy with dexamethasone (20 on D1, 12 after) weekly X 2 months, then every other week X 6 weeks, then once month after Return to Clinic: first two doses here, then local daratumumab Send note to: Salvador Markham MD Consulting Physician Hematology and Oncology 08/10/2018 End ; Pager: [phone]; Comment: Primary Oncologist, phone # [phone], fax # [phone] ITY CONTROL INDUSTRIAL ENGINEER in this encounter Plan of Treatment Not on fileas of this encounter Visit Diagnoses Diagnosis Neuropathy - Primary 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
--- OUTSIDE RECORDS SUMMARY | 2018-10-27 15:53 | XMS REPORT | Encounter Summary ---
Author Author [facility] Organization [facility] Address Unknown Phone Unavailable Care Team Providers Care Transportation Engineer Name Role Phone Sae Gu MD PCP Sae Allen MD Unavailable Luisa Call DO Unavailable Nikita Armijo MD Unavailable Isai Parra MD Unavailable Shameka Ashton MD Unavailable Salvador Markham MD 3 Salvador Markham MD Unavailable Reason for Visit * Reason Comments Hospitalized Patient Encounter Details Care Team Description Date Type Department Angella Rincon MD [address] [place] [address] Hospitalized Patient 10/21/2018 Telephone [facility] [address] [address] Social History Date Tobacco Use Types Packs/Day [...] Telephone Encounter - Mary Gallego RN - 10/21/2018 5:00 PM PREPRESS MANAGER Pt's reports pt remains hospitalized with expected release date of Tuesday 10/23. reports patient underwent cardiac catheterization yesterday with roll coverer Dr Orellana in [facility]. Reports [facility] cardiology clinic phone number is [phone] for further inquiry or discussion with Dr Orellana. Pt wishes to keep appt with [facility] on Wednesday 10/24. Per Dr Rincon, will defer treatment X 2 weeks for cardiac catheterization recovery. Updated of this. Treatment appointment for 10/25 cancelled for recovery time. RESS MANAGER in this encounter Plan of Treatment Not on fileas of this encounter Visit Diagnoses Not on filein this encounter
--- OUTSIDE RECORDS SUMMARY | 2018-10-27 15:53 | XMS REPORT | Encounter Summary ---
Author Author [facility] Organization [facility] Address Unknown Phone Unavailable Care Team Providers Care Section Laborer Name Role Phone Sae Gu MD PCP Sae Allen MD Unavailable Luisa Call DO Unavailable Nikita Armijo MD Unavailable Isai Parra MD Unavailable Shameka Ashton MD Unavailable Salvador Markham MD 3 Salvador Markham MD Unavailable Encounter Details Care Team Description Date Type Department Angella Rincon MD [address] [place] [address] Paige Louie 10/11/2018 Clinical [facility] [address] [place], [place] [phone] Social History Date Tobacco Use Types Packs/Day [...] * Paige Louie - 10/11/2018 1:00 PM FOIL WRAPPER Plan: Confirm Daratumumab treatment with [facility] Interaction: SW was notified by GAMALIEL Hernandez that pt/family would like to talk to SW regarding getting treatment at [facility] stay. SW met with pt//dgt to discuss. Pt was admitted to [facility] [phone] last week for Skilled Rehab. After talking with Dr. Laird today the goal is to work on insurance auth for monotherapy, Daratumumab with start of treatment 10/25/18. First treatment pt will need to be at [facility] by 7am. Pt is asking if Medicare would ever make an exception for pt to stay the night in [place] 10/24/18 while he is in a SNF so pt would not have to leave the facility at 4am on 10/25. SW notified that insurance would not cover SNF if pt was not at the facility for a midnight. Pt/ family voiced understanding. SW left VM for Lalo Cutler with [facility] to see if pt can get Daratumumab during his SNF stay. SW provided pt/ SW business card. SW will continue to follow. Paige Louie LMSW WRAPPER in this encounter Plan of Treatment Not on fileas of this encounter Visit Diagnoses Not on filein this encounter
--- OUTSIDE RECORDS SUMMARY | 2018-10-27 15:53 | XMS REPORT | Encounter Summary ---
Author Author [facility] Organization [facility] Address Unknown Phone Unavailable Care Team Providers Care Food Sales Clerk Name Role Phone Sae Gu MD PCP Sae Allen MD Unavailable Luisa Call DO Unavailable Nikita Armijo MD Unavailable Isai Parra MD Unavailable Shameka Ashton MD Unavailable Salvador Markham MD 3 Salvador Markham MD Unavailable Reason for Visit * Reason Comments Heme/Onc Care Encounter Details Care Team Description Date Type Department Luli Gates APRN-TOBACCO CUTTER [address] [place] [id number] Light chain (AL) amyloidosis (HCC) (Primary Dx) 10/24/2018 Office Visit The [facility] [address] [address] Social History Date Tobacco Use Types Packs/Day [...] Taken Vital Sign Reading 10/24/2018 2:57 PM COLLECTION CARD CLERK Blood Pressure 132/82 10/24/2018 2:57 PM COLLECTION CARD CLERK Pulse 62 - Temperature - 10/24/2018 2:57 PM COLLECTION CARD CLERK Respiratory Rate 15 10/24/2018 2:57 PM COLLECTION CARD CLERK Oxygen Saturation 98% - Inhaled Oxygen - Concentration 10/24/2018 2:57 PM COLLECTION CARD CLERK Weight 107.1 kg (236 lb 1.6 oz) 10/24/2018 2:57 PM COLLECTION CARD CLERK Height 175.3 cm (5' 9") 10/24/2018 2:57 PM COLLECTION CARD CLERK Body Mass Index 34.87 in this encounter Patient Instructions * Patient Instructions* Luli Matute APRN-NP - 10/24/2018 3:00 PM COLLECTION CARD CLERK Today's Instructions: - Have your primary care check your chemistry (potassium, creatinine) and blood counts. - You will get the daratumumab weekly for weeks 1-8. Weeks 9-24 you will get it every other week. Week 25+ you will get it once monthly. Your Care Team: Dr Angella Matute APRN (Nurse Practitioner) Fanny Quiroga, Clinical Nurse Coordinator Mary Gallego, Clinical Nurse Coordinator For Non-Urgent phone calls: [phone]- all calls left between 8 and 4 returned in the same business day or following morning For Urgent phone call needs: [phone]- if between 8 and 4, ask for Dr Rincon's CNCs Mary or Fanny to be paged; if after hours, ask for MD extrusion die corrector to be paged. Please call urgently for any fevers greater than 100.3, do not take any tylenol/ ibuprofen for fevers. Please update attached medication list and bring to next clinic appointment for review. ECTION CARD CLERK in this encounter Plan of Treatment Not on fileas of this encounter Procedures Comments Procedure Name Priority Date/Time Associated Diagnosis TYPE & CROSSMATCH 10/24/2018 1:39 PM COLLECTION CARD CLERK in this encounter Results * TYPE & CROSSMATCH (10/24/2018 1:39 PM COLLECTION CARD CLERK) Units Ordered 0 [facility] Crossmatch Expires 10/27/2018 [facility] Record Check 2ND TYPE REQUIRED [facility] ABO/RH(D) O POS [facility] Antibody Screen NEG [facility] Performing Organization Address City/State/Zipcode Phone Number [facility] [address] [place] [address] in this encounter Visit Diagnoses Diagnosis Light chain (AL) amyloidosis (HCC) - Primary in this encounter
--- OUTSIDE RECORDS SUMMARY | 2018-10-27 15:53 | XMS REPORT | Encounter Summary ---
Author Author [facility] Organization [facility] Address Unknown Phone Unavailable Care Team Providers Care Embalmer/Funeral Director Name Role Phone Sae Gu MD PCP Sae Allen MD Unavailable Luisa Call DO Unavailable Nikita Armijo MD Unavailable Isai Parra MD Unavailable Shameka Ashton MD Unavailable Salvador Markham MD 3 Salvador Markham MD Unavailable Encounter Details Care Team Description Date Type Department Angella Rincon MD [address] [place] [address] 10/24/2018 [facility] - Lab Level [address] [facility] [address] [place], [place] [phone] Social History Date Tobacco Use Types Packs/Day [...] Comments Procedure Name Priority Date/Time Associated Diagnosis CBC AND DIFF Routine 10/24/2018 Light chain (AL) 1:08 PM AUTO BODY REPAIR TECHNICIAN amyloidosis (HCC) IMMUNOGLOBULINS-IGA,IGG,I Routine 10/24/2018 Light chain (AL) GM 1:08 PM AUTO BODY REPAIR TECHNICIAN amyloidosis (HCC) ELECTROPHORESIS-SERUM Routine 10/24/2018 Light chain (AL) PROTEIN 1:08 PM AUTO BODY REPAIR TECHNICIAN amyloidosis (HCC) PHOSPHORUS Routine 10/24/2018 Light chain (AL) 1:08 PM AUTO BODY REPAIR TECHNICIAN amyloidosis (HCC) MAGNESIUM Routine 10/24/2018 Light chain (AL) 1:08 PM AUTO BODY REPAIR TECHNICIAN amyloidosis (HCC) COMPREHENSIVE METABOLIC Routine 10/24/2018 Light chain (AL) PANEL 1:08 PM AUTO BODY REPAIR TECHNICIAN amyloidosis (HCC) in this encounter Results * CBC AND DIFF (10/24/2018 1:08 PM AUTO BODY REPAIR TECHNICIAN) White Blood Cells 7.2 4.5 - 11.0 [...] Organization Address City/State/Zipcode Phone Number [facility] [address] [place] [address] * COMPREHENSIVE METABOLIC PANEL (10/24/2018 1:08 PM AUTO BODY REPAIR TECHNICIAN) Sodium 124 (L) 137 - 147 MMOL/L [...] Blood Performing Organization Address City/State/Zipcode Phone Number [facility] [address] [place] [address] * ELECTROPHORESIS-SERUM PROTEIN (10/24/2018 1:08 PM AUTO BODY REPAIR TECHNICIAN) Total Protein-SEP 3.4 (L) 6.0 - 8.0 [...] Pathologist Signature INTERPRETED BY GENARO RAYMOND M.D. [facility] By the PATH SIGNATURE ABOVE, I attest that I have personally formulated the final interpretation expressed in this report and that the above diagnosis is based upon my examination of the slides and/or other material indicated in this report. Specimen Blood Performing Organization Address City/[facility]/Zipcode Phone Number [facility] [address] [place] [address] * IMMUNOGLOBULINS-IGA,IGG,IGM (10/24/2018 1:08 PM AUTO BODY REPAIR TECHNICIAN) IgG 229 (L) 762 - 1,488 MG/DL [facility] IgA 58 (L) 70 - 390 MG/DL [facility] IgM 31 (L) 38 - 328 MG/DL [facility] Specimen Blood Performing Organization Address [facility] Phone Number [facility] [address] [place] [address] * MAGNESIUM (10/24/2018 1:08 PM AUTO BODY REPAIR TECHNICIAN) Magnesium 2.0 1.6 - 2.6 mg/dL [facility] Specimen Blood Performing Organization Address [facility] Phone Number [facility] [address] [place] [address] * PHOSPHORUS (10/24/2018 1:08 PM AUTO BODY REPAIR TECHNICIAN) Phosphorus 3.4Comment: NOTE NEW REFERENCE 2.0 - 4.5 MG/DL [facility] Specimen Blood Performing Organization Address [facility] Phone Number [facility] [address] [place] [address] in this encounter Visit Diagnoses Diagnosis Light chain (AL) amyloidosis (HCC) in this encounter
--- OUTSIDE RECORDS SUMMARY | 2018-10-27 15:53 | XMS REPORT | Encounter Summary ---
Author Author [facility] Organization [facility] Address Unknown Phone Unavailable Care Team Providers Care Weld Fitter Name Role Phone Sae Gu MD PCP Sae Allen MD Unavailable Luisa Call DO Unavailable Nikita Armijo MD Unavailable Isai Parra MD Unavailable Shameka Ashton MD Unavailable Salvador Markham MD 3 Salvador Markham MD Unavailable Encounter Details Care Team Description Date Type Department Angella Rincon MD [address] [place] [address] [phone] 10/22/2018 Orders Only The [facility] [address] [address] Social History Date Tobacco Use Types Packs/Day [...]
--- OUTSIDE RECORDS SUMMARY | 2018-10-27 15:53 | XMS REPORT | Encounter Summary ---
Author Author [facility] Organization [facility] Address Unknown Phone Unavailable Care Team Providers Care Fly Winder Name Role Phone Sae Gu MD PCP Sae Allen MD Unavailable Luisa Call DO Unavailable Nikita Armijo MD Unavailable Isai Parra MD Unavailable Shameka Ashton MD Unavailable Salvador Markham MD 3 Salvador Markham MD Unavailable Reason for Visit * Reason Comments Hospitalized Patient Encounter Details Care Team Description Date Type Department Angella Rincon MD [address] [place], [place] [id number] Hospitalized Patient 10/19/2018 Telephone [facility] [address] [phone] Social History Date Tobacco Use Types Packs/Day [...] encounter Miscellaneous Notes * Telephone Encounter - Fanny Quiroga RN - 10/19/2018 10:29 AM FILLER WIPER Patient's spouse, Ashley, left VM stating patient is currently hospitalized at [facility] in [place], [place] for hypokalemia. Tentative DC tomorrow 04/22. Second touch appointments r/s to Wednesday10/24/18 with C1D1 Daratumumab to begin on 10/25/18. Spouse confirmed all appointments. ER WIPER in this encounter Plan of Treatment Not on fileas of this encounter Visit Diagnoses Not on filein this encounter
--- OUTSIDE RECORDS SUMMARY | 2018-10-27 15:53 | XMS REPORT | Encounter Summary ---
Author Author [facility] Organization [facility] Address Unknown Phone Unavailable Care Team Providers Care Plate Furnace Operator Name Role Phone Sae Gu MD PCP Sae Allen MD Unavailable Luisa Call DO Unavailable Nikita Armijo MD Unavailable Isai Parra MD Unavailable Shameka Ashton MD Unavailable Salvador Markham MD 3 Salvador Markham MD Unavailable Encounter Details Care Team Description Date Type Department Marbella Cast, PHARMD 10/17/2018 Orders Only [facility] [address] [place] [phone] Social History Date Tobacco Use Types Packs/Day [...]
--- OUTSIDE RECORDS SUMMARY | 2018-10-27 15:54 | XMS REPORT | Encounter Summary ---
Author Author [facility] Organization [facility] Address Unknown Phone Unavailable Care Team Providers Care Costuming Supervisor Name Role Phone Sae Gu MD PCP Sae Allen MD Unavailable Luisa Call DO Unavailable Nikita Armijo MD Unavailable Isai Parra MD Unavailable Shameka Ashton MD Unavailable Salvador Markham MD 3 Salvador Markham MD Unavailable Encounter Details Care Team Description Date Type Department Malaika Cloud RN 08/29/2018 Documentation Cardiovascular Medicine [place] [address] [address] [place] [address] Social History Date Tobacco Use Types Packs/Day [...] test. They went to [facility] recently to consult with the head [...]
--- OUTSIDE RECORDS SUMMARY | 2018-10-27 15:54 | XMS REPORT | Encounter Summary ---
Author Author [facility] Organization [facility] Address Unknown Phone Unavailable Care Team Providers Care Cost Specialist Name Role Phone Sae Gu MD PCP Sae Allen MD Unavailable Luisa Call DO Unavailable Nikita Armijo MD Unavailable Isai Parra MD Unavailable Shameka Ashton MD Unavailable Salvador Markham MD 3 Reason for Referral * Consult, Test & Treat (Routine) Referred By Contact Referred To Contact Status Reason Specialty Diagnoses / [place] [address] [place] [address] Valentin Handley MD [address] [facility] [address] [place] [address] Closed Specialty Services Cardiology Diagnoses Required Multiple myeloma, remission status unspecified (HCC) Scheduling Instructions Please try to cluster appointments with other [facility] appointments if possible. Patient lives 3 hours away. * Consult, Test & Treat (Routine) Referred By Contact Referred To Contact Status Reason Specialty Diagnoses / Procedures Angella Rincon MD [address] [place] [address] Louise Finn MD [address] [place] [address] New Request Specialty Services Diagnoses Required Multiple myeloma, remission status unspecified (HCC) Encounter Details Care Team Description Date Type Department Angella Rincon MD [address] [place] [address] [phone] Multiple myeloma, remission status unspecified (HCC) ( Primary Dx) 08/16/2018 Orders Only The [facility] [address] [place] [address] Social History Date Tobacco Use Types Packs/Day [...] Treatment Order Schedule Name Priority Associated Diagnoses Ordered: 08/16/2018 AMB REFERRAL TO HEMATOLOGY Routine Multiple myeloma, remission status unspecified (HCC) Ordered: 08/16/2018 AMB REFERRAL TO ADULT CARDIOLOGY Routine Multiple myeloma, remission status unspecified (HCC) as of this encounter Visit Diagnoses Diagnosis Multiple myeloma, remission status unspecified (HCC) - Primary in this encounter
--- OUTSIDE RECORDS SUMMARY | 2018-10-27 15:54 | XMS REPORT | Encounter Summary ---
Author Author [facility] Organization [facility] Address Unknown Phone Unavailable Care Team Providers Care Tetryl Dissolver Operator Name Role Phone Sae Gu MD PCP Sae Allen MD Unavailable Luisa Call DO Unavailable Nikita Armijo MD Unavailable Isai Parra MD Unavailable Shameka Ashton MD Unavailable Salvador Markham MD 3 Salvador Markham MD Unavailable Reason for Referral * Consult, Test & Treat (Urgent) Referred By Contact Referred To Contact Status Reason Specialty Diagnoses / Procedures Angella Rincon MD [address] [place] [address] Valentin Handley MD [address] [facility] [address] [place] [address] New Request Specialty Services Cardiology Diagnoses Required Light chain (AL) amyloidosis (HCC) Reason for Visit * Reason Comments Heme/Onc Care Encounter Details Care Team Description Date Type Department Angella Rincon MD [address] [place] [address] Neuropathy (Primary Dx); Light chain (AL) amyloidosis (HCC); Proteinuria, unspecified type 08/18/2018 Office Visit The [address] [place] [place] [address] Social History Date Tobacco Use Types Packs/Day [...] Vital Signs Time Taken Vital Sign Reading 08/18/2018 12:10 PM CDT Blood Pressure 134/84 08/18/2018 12:10 PM CDT Pulse 64 08/18/2018 12:10 PM CDT Temperature 36.5 C (97.7 F) 08/18/2018 12:10 PM CDT Respiratory Rate 16 08/18/2018 12:10 PM CDT Oxygen Saturation 98% - Inhaled Oxygen - Concentration 08/18/2018 12:10 PM CDT Weight 74.6 kg (164 lb 6.4 oz) 08/18/2018 12:10 PM CDT Height 176.7 cm (5' 9.57") 08/18/2018 12:10 PM CDT Body Mass Index 23.88 in this encounter Patient Instructions * Patient Instructions* Mary Gallego RN - 08/18/2018 12:00 PM CDT Your Care Team: Dr Angella Matute aPRN (Nurse Practitioner) Fanny Quiroga, Clinical Nurse Coordinator Mary Gallego, Clinical Nurse Coordinator Please provide 3-5 business days advanced notice for all refill requests. Please provide 5 business days advanced notice for all paperwork requests. For Non-Urgent phone calls: [phone]- all calls left between 8 and 3:30 returned in the same business day or following morning For Urgent phone call needs: [phone]- if between 8 and 4, ask for Dr Rincon's CNCs Mary or Fanny to be paged; if after hours, ask for MD rn occupational health to be paged. For Scheduling needs: [phone] For primary care needs, such as blood [...] clinic appointment for review. [facility] Infection Prevention Practitioner: Jess [phone] (Toll-Free) or [email or web address] If you are from, [place], [place], [facility], [place] or anywhere else , know you are welcome.. in this encounter Progress Notes * Angella Rincon MD - 08/18/2018 12:00 PM CDT Date of Service: 08/18/2018 Subjective: Reason for Visit: Heme/Onc Care Keo Whitt is a 78 y.o. 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 Pt is complaining of dizziness, neuropathy and muscle weakness and he is here to discuss the results of the Mass spect History of Present IllnessOnc Timeline Diagnosis:AL Amyloidosis [...] hypoalbuminemia and proteinuria patient was sent to rope silica machine operator at [facility] who recommended a kidney biopsy that was [...] Take 20 mg by mouth daily. Vit A,C,D-Dcmf-Slcksg (ICAPS AREDS) 14,320-226-200 fuih-lz-ubub cap Take 1 capsule by mouth daily. [...] Fix-Serum NO PARAPROTEIN SEEN 08/08/2018 04:30 PM [place], [facility] 1.20 08/08/2018 04:30 PM [place], FLC 4.03 (H) 08/08/2018 04:30 PM [place]/Lambda FLC 0.30 08/08/2018 04:30 PM B2 Microglobulin [...] skeltal survey showed osteopenia. Mass spect at [facility] for the kidney biopsy showed AL Amyloidosis. [...] his renal amyloidosis, Pt is following his rope silica machine operator, will start him on treatment for his AL Amyloidosis I will send my note to pt PCP Dr. Gu, and Dr. Salvador Rincon M.D Tobacco Primer Machine Operator of Internal medicine Division of Hematologic Malignancies and Cellular Therapeutics Pager [phone] * Mary Gallego, MILLIE - 08/18/2018 12:00 PM CDT Last Amyloidosis Labs: 08/08 Pt presentation: Mass spectometry results show AL amyloidosis, lambda type; states will see [facility] on 10/03 for 2nd opinion with Dr Finn; lives in [place], [place] Recommendations and discussion: Start Cytoxan, Velcade, Dexamethasone; collaboration with nephrology and cardiology; doxycycline BID;start acyclovir; referral to Dr Handley for cardiac management for amyloidosis Return to Clinic: 4 cycles Coordinate care and send notes to: Sae Gu III, MD PCP - General Internal Medicine ; Other Patient Care Team Members uLisa Call, DO Endocrinology and Diabetes Services ; Nikita Armijo MD Neurology ; Pager: [phone]; Isai Parra MD Nephrology [place], [place]: [phone] Salvador Markham MD Hematology and Oncology ; Pager: [phone]; in this encounter Miscellaneous Notes * Patient Education - Brad Owusu, PHARMD - 08/18/2018 12:00 PM CDT Chemotherapy Education [...] at this time. Medication handout(s) provided. 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
--- OUTSIDE RECORDS SUMMARY | 2018-10-27 15:54 | XMS REPORT | Encounter Summary ---
Author Author [facility] Organization [facility] Address Unknown Phone Unavailable Care Team Providers Care Block Feeder Name Role Phone Sae Gu MD PCP Sae Allen MD Unavailable Luisa Call DO Unavailable Nikita Armijo MD Unavailable Isai Parra MD Unavailable Shameka Ashton MD Unavailable Salvador Markham MD 3 Salvador Markham MD Unavailable Reason for Visit * Reason Comments Hallucinations Fall Encounter Details Care Team Description Date Type Department Angella Rincon MD [address] [place] [address] Hallucinations; Fall 09/19/2018 Telephone [facility] [address] [address] Social History Date Tobacco Use Types Packs/Day [...] Mary Gallego RN - 09/19/2018 9:01 AM COUNSELING CASE MANAGER Voicemail had been left after hours on Wednesday from stating that patient was having multiple falls and hallucinations at home. Upon callback Wednesday, reports they had gone to [facility] ED and sodium in the low 110's. reports [...] he is not in office until Wednesday. SELING CASE MANAGER in this encounter Plan of Treatment Not on fileas of this encounter Visit Diagnoses Not on filein this encounter
--- OUTSIDE RECORDS SUMMARY | 2018-10-27 15:54 | XMS REPORT | Encounter Summary ---
Author Author [facility] Organization [facility] Address Unknown Phone Unavailable Care Team Providers Care Seismograph Computer Name Role Phone Sae Gu MD PCP Sae Allen MD Unavailable Luisa Call DO Unavailable Nikita Armijo MD Unavailable Isai Parra MD Unavailable Shameka Ashton MD Unavailable Salvador Markham MD 3 Salvador Markham MD Unavailable Reason for Visit * Reason Comments Other Encounter Details Care Team Description Date Type Department Angella Rincon MD [address] [place] [address] [phone] Other 09/20/2018 Telephone [facility] [address] [phone] Social History Date Tobacco Use Types Packs/Day [...] Heidi Nassar RN - 09/20/2018 1:21 PM POST CLOSING SPECIALIST Patients spouse called stating that patient is [...] appt. Above information given to MILLIE Quiroga CLOSING SPECIALIST in this encounter Plan of Treatment Not on fileas of this encounter Visit Diagnoses Not on filein this encounter
--- OUTSIDE RECORDS SUMMARY | 2018-10-27 15:54 | XMS REPORT | Encounter Summary ---
Author Author [facility] Organization [facility] Address Unknown Phone Unavailable Care Team Providers Care Union Steward Name Role Phone Sae Gu MD PCP Sae Allen MD Unavailable Luisa Call DO Unavailable Nikita Armijo MD Unavailable Isai Parra MD Unavailable Shameka Ashton MD Unavailable Salvador Markham MD 3 Salvador Markham MD Unavailable Encounter Details Care Team Description Date Type Department Nikita Armijo MD [address] [place] [address] 08/29/2018 Documentation [facility] [address] [place] [address] Social History Date Tobacco Use Types Packs/Day [...] 08/29/2018 4:24 PM CDT Patient went to [facility] for evaluation, whom has confirmed diagnosis and recommended patient cancel tilt table testing, so they will not be going through with this procedure. Patient has requested [facility] send records to Dr. Armijo. Confirmed f/u appt. in this encounter Plan of Treatment Not on fileas of this encounter Visit Diagnoses Not on filein this encounter
--- OUTSIDE RECORDS SUMMARY | 2018-10-27 15:54 | XMS REPORT | Encounter Summary ---
Author Author [facility] Organization [facility] Address Unknown Phone Unavailable Care Team Providers Care Extension Service Advisor Name Role Phone Sae Gu MD PCP Sae Allen MD Unavailable Luisa Call DO Unavailable Nikita Armijo MD Unavailable Isai Parra MD Unavailable Shameka Ashton MD Unavailable Salvador Markham MD 3 Salvador Markham MD Unavailable Reason for Visit * Reason Comments Follow Up Encounter Details Care Team Description Date Type Department Nikita Armijo MD [address] [place] [address] Neuropathy (Primary Dx); Light chain (AL) amyloidosis (HCC); Orthostatic lightheadedness 08/23/2018 Office Visit [facility]Neu[facility] [address] [place] [address] Social History Date Tobacco Use [...] Vital Signs Time Taken Vital Sign Reading 08/23/2018 2:41 PM CDT Blood Pressure 126/79 08/23/2018 2:41 PM CDT Pulse 70 - Temperature - - Respiratory Rate - - Oxygen Saturation - - Inhaled Oxygen - Concentration 08/23/2018 2:41 PM CDT Weight 77.5 kg (170 lb 12.8 oz) 08/23/2018 2:41 PM CDT Height 175.3 cm (5' 9") 08/23/2018 2:41 PM CDT Body Mass Index 25.22 in this encounter Progress Notes * Nikita Armijo MD - 08/23/2018 2:50 PM CDT Date of Service: 08/23/2018 Subjective: Keo Whitt [...] showed amyloidosis. He was seen by Dr. Mckenzie mckenna at and was found to have amyloidosis AL. Chemotherapy is already discussed with the patient but he is going to [facility] tomorrow for second opinion. The [...] Take 20 mg by mouth daily. Vit A,C,K-Houv-Vrgypv (ICAPS AREDS) 14,320-226-200 qeui-ws-cbdr cap Take 1 capsule by mouth daily. [...] is going for a second opinion at [facility] tomorrow before he starts treatment. [...] This note was in part completed with [employer], a speech recognition software. Some grammatical and ecological modeler errors may have occurred. 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
--- OUTSIDE RECORDS SUMMARY | 2018-10-27 15:54 | XMS REPORT | Encounter Summary ---
Author Author [facility] Organization [facility] Address Unknown Phone Unavailable Care Team Providers Care Emergency Room Specialist Name Role Phone Sae Gu MD PCP Sae Allen MD Unavailable Luisa Call DO Unavailable Nikita Armijo MD Unavailable Isai Parra MD Unavailable Shameka Ashton MD Unavailable Encounter Details Care Team Description Date Type Department Angella Rincon MD [address] [place] [address] [phone] Amyloidosis, unspecified (HCC) 08/08/2018 Hospital [facility] Encounter [facility] [address] [place] [address] Social History Date Tobacco Use Types Packs/Day Years Used Never Smoker Smokeless Tobacco: Never Used Alcohol Use Drinks/Week oz/Week Comments Yes Very Rare Sex Assigned at Date Recorded Not on file Industry Job Start Date Occupation Not on file Not on file Not on file Travel End Travel History Travel Start No recent travel history available. as of this encounter Medications at Time of Discharge Start Date End Date Medication Sig Dispensed Refills ALPRAZolam (XANAX) 0.5 mg Take 0.5 mg 0 tablet by mouth at bedtime as needed for Anxiety. ascorbate calcium Take 500 mg 0 (ROSA M-C PO) by mouth. Maybe a few times a week aspirin EC 81 mg tablet Take 81 mg by 0 mouth daily. CoQ10 (Ubiquinol) 200 mg Take 1 0 cap capsule by mouth daily. ergocalciferol (vitamin Take 1 tablet 0 D2) 2,000 unit tab by mouth daily. 08/05/2018 hydrocortisone (CORTEF) 2 Tabs PO QAM 0 10 mg tablet and 1 Tab PO QPM 05/05/2018 REPATHA SURECLICK 140 Inject 140 mg 0 mg/mL injectable PEN to area(s) as directed every 14 days. 07/11/2018 rosuvastatin (CRESTOR) 20 Take 20 mg by 0 mg tablet mouth daily. Vit A,C,K-Iwew-Kkboka Take 1 0 (ICAPS AREDS) capsule by 14,320-226-200 mouth daily. glsu-gy-eofw cap 04/27/2018 VITAMIN D 50,000 unit Take 50,000 0 capsule Units by mouth twice weekly. as of this encounter Plan of Treatment Not on fileas of this encounter Procedures Comments Procedure Name Priority Date/Time Associated Diagnosis MISCELLANEOUS SURGICAL 08/08/2018 Amyloidosis (HCC) PATHOLOGY REFERENCE LAB 5:03 PM CDT TEST MISCELLANEOUS SURGICAL 08/08/2018 Amyloidosis (HCC) PATHOLOGY REFERENCE LAB 5:03 PM CDT TEST MISCELLANEOUS SURGICAL 08/08/2018 Amyloidosis (HCC) PATHOLOGY REFERENCE LAB 5:03 PM CDT TEST [facility] TEST 08/08/2018 Amyloidosis (HCC) 5:03 PM CDT in this encounter Results * MISCELLANEOUS SURGICAL PATHOLOGY REFERENCE LAB TEST (08/08/2018 5:03 PM CDT) Test AMYLOID PROTEIN ID, MASS REFERENCE LAB SPECTROMETRY Reference Lab PERFORMED AT [facility] Results Ref Lab SEE [facility] TEST REFERENCE LAB Specimen Mail TISSUE, BLOCK, [id number] A1 REFERENCE LAB Performing Organization Address City/[facility] Phone Number REFERENCE LAB REFERENCE LAB See results for address. * MISCELLANEOUS SURGICAL PATHOLOGY REFERENCE LAB TEST (08/08/2018 5:03 PM CDT) Test AMYLOID PROTEIN ID, REFERENCE LAB MICRODISSECTION, LASER CAPTURE Reference Lab PERFORMED AT [facility] Results Ref Lab SEE [facility] TEST REFERENCE LAB Specimen Mail TISSUE, BLOCK, [id number] A1 REFERENCE LAB Performing Organization Address City/State/Zipcode Phone Number REFERENCE LAB REFERENCE LAB See results for address. * MISCELLANEOUS SURGICAL PATHOLOGY REFERENCE LAB TEST (08/08/2018 5:03 PM CDT) Test Amyloid Protein REFERENCE LAB Identification, Paraffin Reference Lab PERFORMED AT [facility] Results Ref Lab SEE [facility] TEST REFERENCE LAB Specimen Mail Adeel block REFERENCE LAB Performing Organization Address City/State/Zipcode Phone Number REFERENCE LAB REFERENCE LAB See results for address. * [facility] TEST (08/08/2018 5:03 PM CDT) [facility] AMPIP, Amyloid Protein ID, REFERENCE LAB Info Par, LC MS/MS [facility] Result SEE COMMENTS 08/17/2018 12:51 REFERENCE LAB PM Test ResultFlag UnitRefValue ------ Amyloid Protein ID, Par, LC MS/MS Interpretation Kidney, specimen for amyloid typing ([id number]; 07/07/2018): Involved by amyloidosis, AL (lambda)-type. A [...] the Department of Laboratory Medicine and Pathology, [facility] [employer] [place] at . Report electronically signed by Shakeel Haynes M.D. Material Received A. [id number]: Kidney, [place] 1 block Disclaimer This test was developed and its performance characteristics determined by [facility] in a manner consistent with CLIA requirements. This test has not been cleared or approved by the U.S. Food and Drug Administration. Test Performed by: [place] [address] [place] [address] Performing Organization Address City/State/Zipcode Phone Number REFERENCE LAB REFERENCE LAB See results for address. in this encounter Visit Diagnoses Diagnosis Amyloidosis (HCC) Amyloidosis, unspecified in this encounter
--- OUTSIDE RECORDS SUMMARY | 2018-10-27 15:54 | XMS REPORT | Encounter Summary ---
Author Author [facility] Organization [facility] Address Unknown Phone Unavailable Care Team Providers Care Technical Sales Director Name Role Phone Sae Gu MD PCP Sae Allen MD Unavailable Luisa Call DO Unavailable Nikita Armijo MD Unavailable Isai Parra MD Unavailable Shameka Ashton MD Unavailable Encounter Details Care Team Description Date Type Department Angella Rincon MD [address] [place], [place] [id number] 08/08/2018 [facility] [address] [place], [place] [id number] Social History Date Tobacco Use Types Packs/Day [...] by 0 mg tablet mouth daily. Vit A,C,F-Btnt-Pjgzhe Take 1 0 (ICAPS AREDS) capsule by 14,320-226-200 mouth daily. ggke-ks-qzqh cap 04/27/2018 VITAMIN D 50,000 unit Take 50,000 0 capsule Units by mouth twice weekly. as of this encounter Plan of Treatment Not on fileas of this encounter Procedures Comments Procedure Name Priority Date/Time Associated Diagnosis BONE MARROW 08/08/2018 5:03 PM CDT [facility]AY TEST Routine 08/08/2018 4:30 PM CDT [facility] REFERENCE TEST Routine 08/08/2018 Amyloidosis, unspecified 4:30 PM CDT type (HCC) FLOW CYTOMETRY 08/08/2018 3:43 PM CDT METASTATIC SKELETAL Routine 08/08/2018 Amyloidosis, unspecified SURVEY 3:06 PM CDT type (HCC) in this encounter Results * BONE MARROW (08/08/2018 5:03 PM CDT) PATHOLOGY REPORT [facility] [employer] [facility] [email or web address] [place] Department of Pathology and Laboratory Medicine [address] [place] [address] Surgical Pathology Office:[phone] :[phone] SURGICAL PATHOLOGY REPORT NAME: NEGRITA MOORE SURG PATH #: [id number] MR #: [id number] ALT ID #: LOCATION: [facility] DATE OF [...] of Pathology and Laboratory Medicine of the [facility] ([employer]) in compliance [...] of Pathology and Laboratory Medicine of the [facility].It has not been cleared or approved by the FDA.The FDA has determined that such clearance or approval is not necessary. Performing Organization Address City/[facility]ode Phone Number [facility] RESULTS * [facility] TEST (08/08/2018 4:30 PM CDT) [facility] PB[facility], NT Pro BNP, S REFERENCE LAB Info [place] Miscellaneous Result SEE COMMENTS 08/10/2018 11:18 REFERENCE [...] absence of renal failure. Test Performed by: [place] [address] Performing Organization Address City/[facility] Phone Number REFERENCE LAB REFERENCE LAB See results for address. * [facility] REFERENCE TEST (08/08/2018 4:30 PM CDT) Test NT Pro B Type Natriuretic REFERENCE LAB Peptide (BNP), Serum Reference Lab PERFORMED AT [facility] Results Ref Lab SEE [facility] TEST REFERENCE LAB Specimen Mail SERUM REFERENCE LAB Performing Organization Address City/[facility] Phone Number REFERENCE LAB REFERENCE LAB See results for address. * FLOW CYTOMETRY (08/08/2018 3:43 PM CDT) PATHOLOGY REPORT [facility] [employer] [email or web address] [place] Aric Broussard MD, Director of Flow Cytometry Laboratory Department of Pathology and Laboratory Medicine [address] [place] [address] Surgical Pathology Office:[phone] :[phone] FLOW CYTOMETRY REPORT NAME: OSCAR NEGRITA SURG PATH #: [id number] MR #: [id number] SPECIMEN CLASS: LC BILLING #: [id number] ALT ID #:LOCATION: [facility] DATE OF PROCEDURE: [...] Plasma Cell Associated Markers (% Positive Cells): RL35=664; JN717=719; cyKappa=5; cyLambda=93; cyK/cyL ratio=0.1 Miscellaneous Markers (% Positive Cells): CD19=5; CD20=44; CD27=35; CD28=2; CD45=93; CD56=3; CD81=69; WD265=91 Cell Viability (%):n/a Number of Cells Analyzed:1,103,218 Plasma Cells Detected:1.66 Total Number of Markers:15 Summary of Marker Combinations: 81/28/138/38/45/27/20; cyKappa/cyLambda/138/117/38/45 /56/19 This test was developed and its performance characteristics determined by the [facility] Flow Cytometry Laboratory.It has not been cleared or approved by the U.S. Food and Drug Administration (FDA).The FDA has determined that such clearance or approval is not necessary. Performing Organization Address City/State/Zipcode Phone Number [facility] RESULTS * METASTATIC SKELETAL SURVEY (08/08/2018 3:06 PM [...] Visit Diagnoses Diagnosis Amyloidosis, unspecified type (HCC) in this encounter
--- OUTSIDE RECORDS SUMMARY | 2018-10-27 15:54 | XMS REPORT | Encounter Summary ---
Author Author [facility] Organization [facility] Address Unknown Phone Unavailable Care Team Providers Care Laborer Name Role Phone Sae Gu MD PCP Sae Allen MD Unavailable Luisa Call DO Unavailable Nikita Armijo MD Unavailable Isai Parra MD Unavailable Shameka Ashton MD Unavailable Salvador Markham MD 3 Salvador Markham MD Unavailable Encounter Details Care Team Description Date Type Department Nikita Armijo MD [address] [place] [address] 09/05/2018 Documentation [facility] [address] [place] [address] Social History Date Tobacco Use [...] of this encounter Progress Notes * Anca Garcia RN - 09/05/2018 2:21 PM CDT Received Shirley's faxed records, will give to MR to upload into system. in this encounter Plan of Treatment Not on fileas of this encounter Visit Diagnoses Not on filein this encounter
--- OUTSIDE RECORDS SUMMARY | 2018-10-27 15:54 | XMS REPORT | Encounter Summary ---
Author Author [facility] Organization [facility] Address Unknown Phone Unavailable Care Team Providers Care Lining Strap Closer Name Role Phone Sae Gu MD PCP Sae Allen MD Unavailable Luisa Call DO Unavailable Nikita Armijo MD Unavailable Isai Parra MD Unavailable Shameka Ashton MD Unavailable Salvador Markham MD 3 Reason for Visit * Reason Comments Test Encounter Details Care Team Description Date Type Department Angella Rincon MD [address] [place] [address] [phone] Test 08/09/2018 Telephone [facility] [address] [phone] Social History Date Tobacco Use Types Packs/Day [...] Miscellaneous Notes * Telephone Encounter - Mary Gallego, RN - 08/09/2018 4:45 PM CDT Per Delicia with [facility], turnaround time for mass spectometry for amyloidosis is typically 3 weeks for results and [facility] will be starting the test tomorrow. Phone number to [place] ( ) provided by Delicia for this [facility] to discuss expediting testing. Spoke with Gisel with [facility] who requested electronic order number for testing [...]
--- OUTSIDE RECORDS SUMMARY | 2018-10-27 15:54 | XMS REPORT | Encounter Summary ---
Author Author [facility] Organization [facility] Address Unknown Phone Unavailable Care Team Providers Care Equal Opportunity Representative Name Role Phone Sae Gu MD PCP Sae Allen MD Unavailable Luisa Call DO Unavailable Nikita Armijo MD Unavailable Isai Parra MD Unavailable Shameka Ashton MD Unavailable Salvador Markham MD 3 Salvador Markham MD Unavailable Reason for Visit * Reason Comments Records Request Encounter Details Care Team Description Date Type Department Destiny Quiros Records Request 08/19/2018 Telephone [facility] MEDICAL RECORDS [address] [place] [address] Social History Date Tobacco Use Types Packs/Day [...] O2 and also Dr Sae Allen at [facility] in [place] in this encounter Plan of Treatment Not on fileas of this encounter Visit Diagnoses Not on filein this encounter
--- OUTSIDE RECORDS SUMMARY | 2018-10-27 15:55 | XMS REPORT | Encounter Summary ---
Author Author [facility] Organization [facility] Address Unknown Phone Unavailable Care Team Providers Care Associate Professor Of Library Science Name Role Phone Sae Gu MD PCP Sae Allen MD Unavailable Luisa Call DO Unavailable Nikita Armijo MD Unavailable Isai Parra MD Unavailable Shameka Ashton MD Unavailable Reason for Referral * Consult, Test & Treat (Routine) Referred By Contact Referred To Contact Status Reason Specialty Diagnoses / [place] [address] [place] [id number] Closed Specialty Services Diagnoses Required Amyloidosis, unspecified type (HCC) Reason for Visit * Reason Comments Heme/Onc Care * Consult, Test & Treat (Routine) Referred By Contact Referred To Contact Status Reason Specialty Diagnoses / Procedures Sae Gu III, MD [address] [place] [address] Angella Rincon MD [address] [place] [address] No Auth Needed Hematology / Diagnoses Oncology Amyloidosis, referral BRITNI Davidedures NEW PATIENT Encounter Details Care Team Description Date Type [place] [address] [place] [id number] Multiple myeloma, remission status unspecified (HCC) ( Primary Dx); Amyloidosis, unspecified type (HCC); Personal history of other diseases of the circulatory system ; Neuropathy; Proteinuria, unspecified type 08/08/2018 Office Visit [facility] [place] [address] [place] [address] Social History Date Tobacco Use Types Packs/Day [...] Vital Signs Time Taken Vital Sign Reading 08/08/2018 1:09 PM CDT Blood Pressure 126/83 08/08/2018 1:09 PM CDT Pulse 72 08/08/2018 1:09 PM CDT Temperature 36.4 C (97.6 F) 08/08/2018 1:09 PM CDT Respiratory Rate 16 08/08/2018 1:09 PM CDT Oxygen Saturation 100% - Inhaled Oxygen - Concentration 08/08/2018 1:09 PM CDT Weight 70.9 kg (156 lb 3.2 oz) 08/08/2018 1:09 PM CDT Height 176.7 cm (5' 9.57") 08/08/2018 1:09 PM CDT Body Mass Index 22.69 in this encounter Patient Instructions * Patient Instructions* Mary Gallego, RN - 08/08/2018 1:20 PM CDT Your Care Team: Dr Angella Matute aPRN (Nurse Practitioner) Fanny Quiroga, Clinical Nurse Coordinator Mary Gallego, Clinical Nurse Coordinator Please provide 3-5 business days advanced notice for all refill requests. Please provide 5 business days advanced notice for all paperwork requests. For Non-Urgent phone calls: [phone]- all calls left between 8 and 3:30 returned in the same business day or following morning For Urgent phone call needs: [phone]- if between 8 and 4, ask for Dr Rincon's CNCs Mary or Fanny to be paged; if after hours, ask for MD salesperson flowers to be paged. For Scheduling needs: [phone] For primary care needs, such as blood [...] Rincon MD - 08/08/2018 1:20 PM CDT Date of Service: 08/08/2018 Subjective: Reason for Visit: Heme/Onc Care Keo Whitt is a 78 y.o. 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 Pt is complaining of dizziness, neuropathy and muscle weakness History of Present IllnessOnc Timeline Diagnosis: Amyloidosis Date of diagnosis: 06/2018 [...] hypoalbuminemia and proteinuria patient was sent to hardware engineer at [place] who recommended a kidney biopsy that was [...] Take 20 mg by mouth daily. Vit A,C,L-Htpo-Uifkdt (ICAPS AREDS) 14,320-226-200 lcrm-dw-epbw cap Take 1 capsule by mouth daily. [...] Fix-Serum NO PARAPROTEIN SEEN 08/08/2018 04:30 PM [place], FLC 1.20 08/08/2018 04:30 PM [place]ambda, FLC 4.03 (H) 08/08/2018 04:30 PM [place]/Lambda FLC 0.30 08/08/2018 04:30 PM B2 Microglobulin [...] will send the kidney biopsy slides to [facility] for Mass spect to evaluate the type [...] care for the patient Angella Rincon M.D Election Watcher of Internal medicine Division of Hematologic Malignancies and Cellular Therapeutics Pager [phone] * Mary Gallego, MILLIE - 08/08/2018 1:20 PM CDT Pt presentation: New patient: Kidney Biopsy positive [...] MD Neurology 08/08/2018 End 08/08/18 ; Pager: [phone]; Isai Parra MD Nephrology 08/08/2018 End 08/08/18 Rose Maryher Louie [facility] [phone] in this encounter Plan of Treatment Order Schedule Name Priority Associated Diagnoses Expected: 08/08/2018, Expires: 08/08/2019 BONE MARROW ASPIRATION PROCEDURE Routine Amyloidosis, unspecified type (HCC) Multiple myeloma, remission status unspecified (HCC) Expected: 08/08/2018 (Approximate), Expires: 08/08/2019 IMMUNOFIXATION URINE 24 HOUR Routine Amyloidosis, unspecified type (HCC) Expected: 08/08/2018 (Approximate), Expires: 08/08/2019 ELECTROPHORESIS-UR 24 HR Routine Amyloidosis, unspecified type (HCC) Expected: 08/08/2018 (Approximate), Expires: 08/08/2019 MISCELLANEOUS LAB TEST Specimen Amyloidosis, unspecified in Lab type (HCC) Order Schedule Name Priority Associated Diagnoses Ordered: 08/10/2018 AMB REFERRAL TO HEMATOLOGY ONCOLOGY Routine Amyloidosis, unspecified type (HCC) as of this encounter Procedures Comments Procedure Name Priority Date/Time Associated Diagnosis CYTOGENETICS SCAN 08/18/2018 10:49 AM CDT CYTOGENETICS SCAN 08/11/2018 2:10 PM CDT in this encounter Results * CYTOGENETICS SCAN (08/18/2018 10:49 AM CDT) Narrative Performed At Ordered by an unspecified provider. * CYTOGENETICS SCAN (08/11/2018 2:10 PM CDT) Narrative Performed At Ordered by an unspecified provider. * BETA 2 MICROGLOBULIN (08/08/2018 4:30 PM CDT) B2 Microglobulin 1.9 0.8 - 2.3 MG/L [facility] Specimen Blood Performing Organization Address City/[facility]/Zipcode Phone Number MAIN LAB [address] [place] [address] * BNP (B-TYPE NATRIURETIC PEPTI) (08/08/2018 4:30 PM CDT) B Type Natriuretic 611.0 (H) 0 - 100 PG/ML [facility] Peptide Specimen Blood Performing Organization Address City/[facility] Phone Number [facility] [address] [place] [address] * CBC AND DIFF (08/08/2018 4:30 PM CDT) White Blood Cells 7.0 4.5 - 11.0 K/UL [facility] RBC 4.18 (L) 4.4 - 5.5 M/UL [facility] Hemoglobin 13.5 13.5 - 16.5 GM/DL [facility] Hematocrit 39.5 (L) 40 - 50 % [facility] MCV 94.4 80 - 100 FL [facility] MCH 32.3 26 - 34 PG [facility] MCHC 34.2 32.0 - 36.0 G/DL [facility] RDW 14.0 11 - 15 % [...] Organization Address City/State/Zipcode Phone Number [facility] [address] [place] [address] * COMPREHENSIVE METABOLIC PANEL (08/08/2018 4:30 PM CDT) Sodium 126 (L) 137 - 147 MMOL/L [...] ALT (SGPT) 14 7 - 56 U/L [facility] Anion Gap <1 (L) 3 - 12 [facility] eGFR Non >60 >60 mL/min [facility] Comment: The eGFR is not validated for use in drug dosing adjustments.Continue to use estimated creatinine clearance per dosing reference text.Please contact the Clinical Pharmacist for questions. eGFR >60 >60 mL/min [facility] Comment: The eGFR is not validated for use in drug dosing adjustments.Continue to use estimated creatinine clearance per dosing reference text.Please contact the Clinical Pharmacist for questions. Specimen Blood Performing Organization Address [facility] Phone Number [facility] [address] [place] [address] * ELECTROPHORESIS-SERUM PROTEIN (08/08/2018 4:30 PM CDT) Total Protein-SEP 4.0 (L) 6.0 - 8.0 [...] Pathologist Signature INTERPRETED BY LUCERO RANGEL M.D. [facility] By the PATH SIGNATURE ABOVE, I attest that I have personally formulated the final interpretation expressed in this report and that the above diagnosis is based upon my examination of the slides and/or other material indicated in this report. Specimen Blood Performing Organization Address [facility] Phone Number [facility] [address] [place] [address] * IMMUNOGLOBULINS-IGA,IGG,IGM (08/08/2018 4:30 PM CDT) IgG 277 (L) 762 - 1,488 MG/DL [facility] IgA 46 (L) 70 - 390 MG/DL [facility] IgM 31 (L) 38 - 328 MG/DL [facility] Specimen Blood Performing Organization Address [facility] Phone Number [facility] [address] [place] [address] * IMMUNOFIXATION, SERUM (IFES) (08/08/2018 4:30 PM CDT) Immuno Fix-Serum NO PARAPROTEIN SEEN [facility] Pathologist Signature INTERPRETED BY LUCERO RANGEL M.D. [facility] By the PATH SIGNATURE ABOVE, I attest that I have personally formulated the final interpretation expressed in this report and that the above diagnosis is based upon my examination of the slides and/or other material indicated in this report. Specimen Blood Performing Organization Address [facility] Phone Number [facility] [address] [place] [address] * KAPPA/LAMBDA FREE LIGHT CHAINS (08/08/2018 4:30 PM CDT) [place], FLC 1.20 0.33 - 1.94 MG/DL [facility] Comment: Freelite results should always be interpreted in conjunction with other laboratory tests and clinical evidence.The possibility of Antigen Excess exists and can cause Immunoassays to under estimate very high concentrations of antigen. Any discordant results should be discussed with Dr. Montaño. [place]ambda, FLC 4.03 (H) 0.57 - 2.63 MG/DL [facility] [place]/Lambda FLC 0.30 0.26 - 1.65 [facility] Specimen Blood Performing Organization Address [facility] Phone Number [facility] [address] [place] [address] * LDH-LACTATE DEHYDROGENASE (08/08/2018 4:30 PM CDT) Lactate Dehydrogenase 234 (H) 100 - 210 U/L [facility] Specimen Blood Performing Organization Address [facility]/Zipcode Phone Number [facility] [address] [place] [address] * PROTIME INR (PT) (08/08/2018 4:30 PM CDT) INR 0.9 0.8 - 1.2 [facility] Specimen Blood Performing Organization Address [facility] Phone Number [facility] [address] [place] [address] * PTT (APTT) (08/08/2018 4:30 PM CDT) APTT 28.9Comment: NOTE NEW 20.0 - 36.0 SEC [facility] REFERENCE RANGES Specimen Blood Performing Organization Address [facility] Phone Number [facility] [address] [place] [address] * CHROMOSOMES FISH DNA PROBE (08/08/2018 3:43 PM CDT) Chromosomes Fish DNA SEE PINSETTER MECHANIC HELPER FOR REPORT [facility] Probe Specimen Bone Marrow Performing Organization Address City/[facility]/Zipcode Phone Number MAIN LAB [address] [place] [address] * CHROMOSOMES BONE MARROW (08/08/2018 3:43 PM CDT) Chromosomes Bone Marrow SEE PINSETTER MECHANIC HELPER FOR REPORT MAIN LAB Specimen Bone Marrow Performing Organization Address City/[facility]/Zipcode Phone Number MAIN LAB [address] [place] [address] * LEUKEMIA/LYMPHOMA PNL, BONE MARROW (08/08/2018 3:43 PM CDT) Leuk/Lymph Interpretation SEE PATHOLOGY REPORT MAIN LAB Specimen/LLM BONE MARROW [facility] Specimen Bone Marrow - Bone Marrow Performing Organization Address City/[facility]/Zipcode Phone Number MAIN LAB [address] [place] [address] * FE STAIN (08/08/2018 3:43 PM CDT) Bone Marrow FE SEE PATHOLOGY REPORT MAIN LAB Specimen Bone Marrow - Bone Marrow Performing Organization Address City/[facility]/Zipcode Phone Number MAIN LAB [address] [place] [address] * BONE MARROW BIOPSY (08/08/2018 3:43 PM CDT) Bone Marrow Bx SEE PATHOLOGY REPORT MAIN LAB Specimen Bone Marrow - Bone Marrow Performing Organization Address City/[facility]/Zipcode Phone Number MAIN LAB [address] [place] [address] * BONE MARROW ASP (08/08/2018 3:43 PM CDT) Bone Marrow Asp SEE PATHOLOGY REPORT MAIN LAB Specimen Bone Marrow - Bone Marrow Performing Organization Address City/[facility]/Zipcode Phone Number MAIN LAB [address] [place] [address] * METASTATIC SKELETAL SURVEY (08/08/2018 3:06 PM [...] Complications: None.Patient tolerated procedure well. Chico Dunn APRN-DRIVER HELPER Performing Organization Address City/State/Zipcode Phone Number OTHER OUTSIDE LAB in this encounter Visit Diagnoses Diagnosis Multiple myeloma, remission status unspecified (HCC) - Primary Amyloidosis, unspecified type (HCC) Personal history of other diseases of the circulatory system Neuropathy Mononeuritis of unspecified site Proteinuria, unspecified type * Assessment & Plan Note - Angella [...] will send the kidney biopsy slides to [facility] for Mass spect to evaluate the type of his amyloidosis RTC in my clinic after the biopsy results are completed in order to perform further evaluation in this encounter
--- OUTSIDE RECORDS SUMMARY | 2018-10-27 15:55 | XMS REPORT | Encounter Summary ---
Author Author [facility] Organization [facility] Address Unknown Phone Unavailable Care Team Providers Care Edger Hand Name Role Phone Sae Gu MD PCP Sae Allen MD Unavailable Luisa Call DO Unavailable Nikita Armijo MD Unavailable Isai Parra MD Unavailable Shameka Ashton MD Unavailable Reason for Visit * Reason Comments Navigation Assessment Encounter Details Care Team Description Date Type Department Angella Rincon MD [address] [place] [address] [phone] Navigation Assessment 08/05/2018 Telephone [facility] [address] [phone] Social History Date Tobacco Use Types Packs/Day [...] Clarke RN - 08/05/2018 9:04 AM CDT Navigation Intake Assessment Document Patient Name: Keo Whitt : 1940 Insurance: Medicare/[facility] Appointment Info: Future Appointments Date Time Provider Department Center 08/08/2018 1:20 PM Angella Rincon MD [facility] Exam 08/30/2018 1:00 PM NON-IMAGING PROCEDURE [...] Amyloidosis. Comments: See notes from Neurologist and Perianesthesia Manager. Can be found in O2. in this encounter Plan of Treatment Not on fileas of this encounter Visit Diagnoses Not on filein this encounter
--- OUTSIDE RECORDS SUMMARY | 2018-10-27 15:55 | XMS REPORT | Encounter Summary ---
Author Author [facility] Organization [facility] Address Unknown Phone Unavailable Care Team Providers Care Outlet Manager Name Role Phone Sae Gu MD PCP Sae Allen MD Unavailable Luisa Call DO Unavailable Nikita Armijo MD Unavailable Isai Parra MD Unavailable Shameka Ashton MD Unavailable Reason for Visit * Reason Comments Heme/Onc Care Encounter Details Care Team Description Date Type Department Angella Rincon MD [address] [place], [place] [id number] Chico Dunn APRN-YASSINE [address] [place] [address] [phone] Amyloidosis, unspecified type (HCC) (Primary Dx); Multiple myeloma, remission status unspecified (HCC) 08/08/2018 Procedure visit [facility] [address] [place], [place] [phone] Social History Date Tobacco Use Types Packs/Day [...] Signs Time Taken Vital Sign Reading 08/08/2018 3:13 PM CDT Blood Pressure 126/83 08/08/2018 3:13 PM CDT Pulse 72 08/08/2018 3:13 PM CDT Temperature 36.4 C (97.6 F) 08/08/2018 3:13 PM CDT Respiratory Rate 16 08/08/2018 3:13 PM CDT Oxygen Saturation 100% - Inhaled Oxygen - Concentration 08/08/2018 3:13 PM CDT Weight 70.9 kg (156 lb 4.9 oz) 08/08/2018 3:13 PM CDT Height 176.7 cm (5' 9.57") 08/08/2018 3:13 PM CDT Body Mass Index 22.71 in this encounter Progress Notes * Lucinda Bingham RN - 08/08/2018 3:00 PM CDT PROCEDURE ROOM RECORD Room: 2 Time in Room: 1520 Time Out: 1522 Procedure Time Start: 1525 Time Finished: 1545 Pre/post op Diagnosis per Physician: 1. Amyloidosis, [...] marked as necessary. Physician/Surgeon: Madeleine Dunn APRN Autistic Teacher; Beata Loya Scrub: Feather Separator: Lucinda Bingham Prep Area: Left iliac crest [...] stain. Complications: None. Patient tolerated procedure well. Olajire Kilanko, FENCE ERECTOR-JUNIOR GRAPHIC DESIGNER in this encounter Plan of Treatment Not on fileas of this encounter Procedures Comments Procedure Name Priority Date/Time Associated Diagnosis LEUKEMIA/LYMPHOMA PNL, Routine 08/08/2018 Amyloidosis, unspecified BONE [...] myeloma, remission status unspecified (HCC) BONE MARROW ASPIRATION Routine 08/08/2018 Amyloidosis, unspecified PROCEDURE 3:00 PM CDT type (HCC) Multiple myeloma, remission status unspecified (HCC) BIOPSY BONE MARROW Routine 08/08/2018 Amyloidosis, unspecified PROCEDURE 3:00 PM CDT type (HCC) Multiple myeloma, remission status unspecified (HCC) in this encounter Results * LEUKEMIA/LYMPHOMA PNL, BONE MARROW (08/08/2018 3:43 PM CDT) Leuk/Lymph Interpretation SEE PATHOLOGY REPORT [facility] Specimen/LLM BONE MARROW [facility] Specimen Bone Marrow - Bone Marrow Performing Organization Address City/State/Zipcode Phone Number [facility] [address] [place] [address] * FE STAIN (08/08/2018 3:43 PM CDT) Bone Marrow FE SEE PATHOLOGY REPORT MAIN LAB Specimen Bone Marrow - Bone Marrow Performing Organization Address City/[facility]/Zipcode Phone Number MAIN LAB [address] [place] [address] * CHROMOSOMES FISH DNA PROBE (08/08/2018 3:43 PM CDT) Chromosomes Fish DNA SEE PLUMBER FOR REPORT MAIN LAB Probe Specimen Bone Marrow Performing Organization Address [facility] Phone Number [facility] [address] [place] [address] * CHROMOSOMES BONE MARROW (08/08/2018 3:43 PM CDT) Chromosomes Bone Marrow SEE PLUMBER FOR REPORT MAIN LAB Specimen Bone Marrow Performing Organization Address [facility] Phone Number [facility] [address] [place] [address] * BONE MARROW BIOPSY (08/08/2018 3:43 PM CDT) Bone Marrow Bx SEE PATHOLOGY REPORT MAIN LAB Specimen Bone Marrow - Bone Marrow Performing Organization Address [facility] Phone Number [facility] [address] [place] [address] * BONE MARROW ASP (08/08/2018 3:43 PM CDT) Bone Marrow Asp SEE PATHOLOGY REPORT MAIN LAB Specimen Bone Marrow - Bone Marrow Performing Organization Address [facility] Phone Number [facility] [address] [place] [address] * BIOPSY BONE MARROW PROCEDURE (08/08/2018 3:00 [...] Complications: None.Patient tolerated procedure well. Chico Dunn APRN-JUNIOR GRAPHIC DESIGNER Performing Organization Address City/State/Zipcode Phone Number OTHER OUTSIDE LAB in this encounter Visit Diagnoses Diagnosis Amyloidosis, unspecified type (HCC) - Primary Multiple myeloma, remission status unspecified (HCC) in this encounter
--- OUTSIDE RECORDS SUMMARY | 2018-10-27 15:55 | XMS REPORT | Encounter Summary ---
Author Author [facility] Organization [facility] Address Unknown Phone Unavailable Care Team Providers Care Concession Manager Name Role Phone Sae Gu MD PCP Sae Allen MD Unavailable Luisa Call DO Unavailable Nikita Armijo MD Unavailable Isai Parra MD Unavailable Shameka Ashton MD Unavailable Reason for Visit * Reason Comments Heme/Onc Care Encounter Details Care Team Description Date Type Department Angella Rincon MD [address] [place], [place] [phone] Amyloidosis, unspecified type (HCC); Personal history of other diseases of the circulatory system 08/08/2018 Lab Only [facility] [place] [address] [place] [address] Social History Date Tobacco Use Types Packs/Day [...] Comments Procedure Name Priority Date/Time Associated Diagnosis [facility] ARUP TEST Routine 08/08/2018 4:30 PM CDT [facility] REFERENCE TEST Routine 08/08/2018 Amyloidosis, unspecified 4:30 PM CDT type (HCC) IMMUNOFIXATION, SERUM Routine 08/08/2018 Amyloidosis, unspecified (IFES) 4:30 PM CDT type (HCC) KAPPA/LAMBDA FREE LIGHT Routine 08/08/2018 Amyloidosis, unspecified CHAINS 4:30 PM CDT type (HCC) PTT (APTT) Routine 08/08/2018 Amyloidosis, unspecified 4:30 PM CDT type (HCC) PROTIME INR (PT) Routine 08/08/2018 Amyloidosis, unspecified 4:30 PM CDT type (HCC) CBC AND DIFF Routine 08/08/2018 Amyloidosis, unspecified 4:30 PM CDT type (HCC) IMMUNOGLOBULINS-IGA,IGG,I Routine 08/08/2018 Amyloidosis, unspecified GM 4:30 PM CDT type (HCC) ELECTROPHORESIS-SERUM Routine 08/08/2018 Amyloidosis, unspecified PROTEIN 4:30 PM CDT type (HCC) BNP (B-TYPE NATRIURETIC Routine 08/08/2018 Personal history of other PEPTI) 4:30 PM CDT diseases of the circulatory system Amyloidosis, unspecified type (HCC) LDH-LACTATE DEHYDROGENASE Routine 08/08/2018 Amyloidosis, unspecified 4:30 PM CDT type (HCC) BETA 2 MICROGLOBULIN Routine 08/08/2018 Amyloidosis, unspecified 4:30 PM CDT type (HCC) COMPREHENSIVE METABOLIC Routine 08/08/2018 Amyloidosis, unspecified PANEL 4:30 PM CDT type (HCC) in this encounter Results * [facility] (08/08/2018 4:30 PM CDT) Ref Lab Test Code [id number], Troponin T REFERENCE LAB REF LAB RESULT (MSAR) SEE NOTE REFERENCE LAB Test name Result Flag UnitsRefIntvl - Troponin-T 0.04 H ng/mL <=0.01 Performed by [employer], [address], [facility] [place] [address] [email or web address], Loi Wang MD, Lab. Director Performing Organization Address [facility] Phone Number REFERENCE LAB REFERENCE LAB See results for address. * MISC REFERENCE TEST (08/08/2018 4:30 PM CDT) Test Troponin T REFERENCE LAB Reference Lab PERFORMED AT [facility] REFERENCE LAB LABORATORY-FOR REF RANGE SEE REPORT. Results Ref Lab SEE REF LAB RESULT REFERENCE LAB Specimen Mail SERUM REFERENCE LAB Performing Organization Address [facility] Phone Number REFERENCE LAB REFERENCE LAB See results for address. * BETA 2 MICROGLOBULIN (08/08/2018 4:30 PM CDT) B2 Microglobulin 1.9 0.8 - 2.3 MG/L [facility] Specimen Blood Performing Organization Address [facility] Phone Number [facility] [address] [place] [address] * BNP (B-TYPE NATRIURETIC PEPTI) (08/08/2018 4:30 PM CDT) B Type Natriuretic 611.0 (H) 0 - 100 PG/ML [facility] Peptide Specimen Blood Performing Organization Address [facility] Phone Number [facility] [address] [place] [address] * CBC AND DIFF (08/08/2018 4:30 PM [...] LAB Manual Specimen Blood Performing Organization Address [facility] Phone Number [facility] [address] [place] [address] * COMPREHENSIVE METABOLIC PANEL (08/08/2018 4:30 PM [...] for questions. Specimen Blood Performing Organization Address [facility] Phone Number [facility] [address] [place] [address] * ELECTROPHORESIS-SERUM PROTEIN (08/08/2018 4:30 PM CDT) Total Protein-SEP 4.0 (L) 6.0 - 8.0 G/DL MAIN LAB Albumin % 55.7 48 - [...] Pathologist Signature INTERPRETED BY LUCERO RANGEL M.D. [facility] By the PATH SIGNATURE ABOVE, I attest that I have personally formulated the final interpretation expressed in this report and that the above diagnosis is based upon my examination of the slides and/or other material indicated in this report. Specimen Blood Performing Organization Address [facility] Phone Number [facility] [address] [place] [address] * IMMUNOGLOBULINS-IGA,IGG,IGM (08/08/2018 4:30 PM CDT) IgG 277 (L) 762 - 1,488 MG/DL [facility] IgA 46 (L) 70 - 390 MG/DL [facility] IgM 31 (L) 38 - 328 MG/DL [facility] Specimen Blood Performing Organization Address [facility] Phone Number [facility] [address] [place] [address] * IMMUNOFIXATION, SERUM (IFES) (08/08/2018 4:30 PM CDT) Immuno Fix-Serum NO PARAPROTEIN SEEN [facility] Pathologist Signature INTERPRETED BY LUCERO RANGEL M.D. [facility] By the PATH SIGNATURE ABOVE, I attest that I have personally formulated the final interpretation expressed in this report and that the above diagnosis is based upon my examination of the slides and/or other material indicated in this report. Specimen Blood Performing Organization Address [facility] Phone Number [facility] [address] [place] [address] * KAPPA/LAMBDA FREE LIGHT CHAINS (08/08/2018 4:30 PM CDT) [place], FLC 1.20 0.33 - 1.94 MG/DL MAIN LAB Comment: [facility] results should always be interpreted in conjunction with other laboratory tests and clinical evidence.The possibility of Antigen Excess exists and can cause Immunoassays to under estimate very high concentrations of antigen. Any discordant results should be discussed with Dr. Montaño. L[place], FLC 4.03 (H) 0.57 - 2.63 MG/DL MAIN LAB [place]/Lambda FLC 0.30 0.26 - 1.65 MAIN LAB Specimen Blood Performing Organization Address [facility] Phone Number MAIN LAB [address] [place] [address] * LDH-LACTATE DEHYDROGENASE (08/08/2018 4:30 PM CDT) Lactate Dehydrogenase 234 (H) 100 - 210 U/L [facility] Specimen Blood Performing Organization Address [facility] Phone Number [facility] [address] [place] [address] * PROTIME INR (PT) (08/08/2018 4:30 PM CDT) INR 0.9 0.8 - 1.2 MAIN LAB Specimen Blood Performing Organization Address [facility] Phone Number MAIN LAB [address] [place] [address] * PTT (APTT) (08/08/2018 4:30 PM CDT) APTT 28.9Comment: NOTE NEW 20.0 - 36.0 SEC MAIN LAB REFERENCE RANGES Specimen Blood Performing Organization Address [facility] Phone Number [facility] [address] [place] [address] in this encounter Visit Diagnoses Diagnosis Amyloidosis, unspecified type (HCC) Personal history of other diseases of the circulatory system in this encounter
[2018-10-27] MEDS ORDERED: ATROPINE INJECTION 1 MG/10 ML SYR (ABBOTT) INJ ONE (15:57)
[2018-10-27 16:11] LABS: BASOPHILS % (AUTO) 0 % (0-10); EOSINOPHILS % (AUTO) 0 % (0-10); HEMATOCRIT 33 % (40-54); HEMOGLOBIN 11.5 G/DL (13.3-17.7); LYMPHOCYTES % (AUTO) 13 % (12-44); MEAN CORPUSCULAR HEMOGLOBIN 32 PG (25-34); MEAN CORPUSCULAR HGB CONC 35 G/DL (32-36); MEAN CORPUSCULAR VOLUME 92 FL (80-99); MEAN PLATELET VOLUME 12.2 FL (7.4-10.4); MONOCYTES # (AUTO) 0.3 X 10^3 (0.0-1.0); MONOCYTES % (AUTO) 3 % (0-12); NEUTROPHILS % (AUTO) 84 % (42-75); PLATELET COUNT 124 10^3/uL (130-400); RED CELL DISTRIBUTION WIDTH 14.8 % (10.0-14.5); WHITE BLOOD COUNT 8.3 10^3/uL (4.3-11.0)
[2018-10-27] MEDS ORDERED: fentaNYL INJECTION 100 MCG/2 ML AMP ONE (16:12)
[2018-10-27 16:22] LABS: ABG BASE EXCESS -4.8 MMOL/L (-2.5-2.5); ABG OXYGEN SATURATION 93 % (94-100); ABG PCO2 43 MMHG (35-45); ABG PO2 64 MMHG (79-93); ABG TCO2 22.7 MMOL/L (21.0-31.0)
[2018-10-27 16:23] LABS: ABG PH 7.29 (7.37-7.43); ALLENS TEST POSITIVE; PATIENT TEMP 93.7; VENTILATOR YES
[2018-10-27 16:25] LABS: INSPIRED O2 BAGGING
--- NOTE | 2018-10-27 16:26 | ED CPR ---
HPI-CPR General Chief Complaint: Code Blue Stated Complaint: CODE BLUE Source of Information: EMS Exam Limitations: Physical Impairments (ANA M CANTU APRN) History of Present Illness Date Seen by Provider: Oct 27, 2018 Time Seen by Provider: 16:00 Initial Comments To ER per EMS from via [facility] [place] with reports of cardiac arrest. He was noted to be apneic and initially had a pulse but shortly thereafter lost his pulse. CPR was started, EMS arrived. They gave 2 doses of epinephrine via left proximal tibia intraosseous needle, 1 L of IV fluids and intubated him. They did regain a pulse and he arrives to the emergency room with a pulse Initial Complaints: Found Unresponsive Witnessed Arrest: Yes Bystander CPR: Yes Paramedics Initial Findings: Asystole, No Respirations Pre Hospital Treatment: Bag Valve Mask, CPR/Thumper, Intubation, Oxygen, IV Fluids, Epinephrine (mg) (ANA M CANTU APRN) Allergies and Home Medications Allergies Coded Allergies: No Known Drug Allergies (Unverified , 09/23/18) Home Medications Acyclovir 400 Mg Tablet, 400 MG PO BID, (Reported) Alprazolam 0.25 Mg Tablet, 0.25 MG PO HS, (Reported) Aspirin 81 Mg Tablet.dr, 81 MG PO DAILY Prescribed by: BRYSON CHUNG on 10/21/18 1105 Bethanechol Chloride 25 Mg Tablet, 25 MG PO ACHS, (Reported) Clopidogrel Bisulfate 75 Mg Tablet, 75 MG PO DAILY Prescribed by: BRYSON CHUNG on 10/21/18 1105 Ergocalciferol (Vitamin D2) 50,000 Unit Capsule, 50,000 UNITS PO TuTh, (Reported ) Fludrocortisone Acetate 0.1 Mg Tab, 0.1 MG PO DAILY, (Reported) Furosemide 40 Mg Tablet, 40 MG PO DAILY, (Reported) Hydrocortisone 20 Mg Tablet, 30 MG PO Q12H, (Reported) TAKES 1 & 1/2 (20MG) TABLET Loperamide HCl 2 Mg Tablet, 2 MG PO QID PRN for DIARRHEA, (Reported) Nystatin 1 Each Powder.ea., TOP BID PRN for REDNESS, (Reported) APPLY TO GROIN AND SCROTUM Ondansetron 8 Mg Tab.rapdis, 8 MG PO Q8H PRN for NAUSEA/VOMITING-1ST LINE, ( Reported) Potassium Chloride 20 Meq Tab.er.prt, 20 MEQ PO BID Prescribed by: BRYSON CHUNG on 10/21/18 1105 Rosuvastatin Calcium 10 Mg Tablet, 20 MG PO HS, (Reported) TAKES 2 (10MG) TABLETS Tamsulosin HCl 0.4 Mg Cap.er.24h, 0.4 MG PO DAILY, (Reported) Vit C/Xi AC/Lut/Copper/Znox 1 Each Capsule, 1 CAP PO BID, (Reported) Patient Home Medication List Home Medication List Reviewed: Yes (ANA M CANTU APRN) Review of Systems Review of Systems Constitutional: see HPI, other (unable to obtain) (ANA M CANTU APRN) Past Asbdtph-Einvmj-Xvjngh Hx Patient Social History Alcohol Beverage of Choice: Beer Drug of Choice: CANNIBUS 2nd Hand Smoke Exposure: No Recent Foreign Travel: No Contact w/Someone Who Travel: No Recent Hopitalizations: Yes (HYPONATREMIA) (ANA M CANTU APRN) Immunizations Up To Date Tetanus Booster (TDap): Unknown PED Vaccines UTD: No Date of Pneumonia Vaccine: April 05, 2013 Date of Influenza Vaccine: Sep 12, 2018 (ANA M CANTU APRN) Seasonal Allergies Seasonal Allergies: Yes (SINUS ISSUES) (ANA M CANTU APRN) Past Medical History Surgeries: Yes (BACK) Abdominal, CABG, Orthopedic, Prostatectomy Respiratory: No Currently Using CPAP: No Currently Using BIPAP: No Cardiac: Yes (Enlarged Left Ventricle) Coronary Artery Disease, High Cholesterol, Hypertension Neurological: Yes Neuropathy Reproductive Disorders: No Sexually Transmitted Disease: No HIV/AIDS: No Genitourinary: No (KIDNEY DZ) 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) Musculoskeletal: No Endocrine: No HEENT: Yes Macular Degeneration Loss of Vision: Bilateral Hearing Impairment: Denies Cancer: Yes (AMYLOIDOSIS) Did You Recieve Any Treatments: Yes What Type of Treatment Did You: Chemotherapy Psychosocial: Yes Anxiety Integumentary: No Blood Disorders: No Adverse Reaction/Blood Tranf: No (N/A) (ANA M CANTU APRN) Family Medical History Congestive heart failure 03 MOTHER Family history: Thyroid disorder 09 SISTER History of - disorder 03 FATHER (RENA TRACE'S DISEASE) No Family History of: Abdominal aortic aneurysm Cancer Dementia Family history: Allergy Family history: Alzheimer's disease Family history: Arthritis Family history: Cardiovascular disease Family history: Diabetes mellitus Family history: Gastrointestinal disease Hereditary disease History of - respiratory disease Heart Disease, COPD (ANA M CANTU APRN) Physical Exam Vital Signs Vital Signs - First Documented (BOBBY CUNNINGHAM MD) Vital Signs Capillary Refill : (ANA M CANTU APRN) Height, Weight, BMI Height: 5'10.00" Weight: 210lbs. 8.0oz. 95.701876al; 30.2 BMI Method:Stated General Appearance: Chronically ill, Other (intubated and nonresponsive. He was having some agonal breathing in between respirations provided via bag-valve- mask. 3 mg of Versed was given on arrival to the emergency room. No additional medications or paralytics were given.) HEENT: Other (left pupil 5 mm fixed nonreactive, right pupil 3 mm fixed nonreactive. Size 8-[address] with a small amount of blood in the oropharynx) Neck: Full Range of Motion, Normal Inspection (jugular vein distention bilaterally) Respiratory: No Accessory Muscle Use, No Respiratory Distress, Decreased Breath Sounds (diminished throughout but present in both lungs) Cardiovascular: JVD, Other (very weak but present carotid pulse palpable normal rate) Gastrointestinal: Soft, Hepatomegaly Extremity: No Inflammation; Other (anasarca with 3-4+ pitting edema bilateral upper and lower extremities) Skin: Cool, Pallor (ANA M CANTU APRN) Cardiovascular: Bradycardia Neurologic/Psychiatric: Other (unresponsive with fixed pupils.) (BOBBY CUNNINGHAM MD) Progress/Results/Core Measures Results/Orders Lab Results Laboratory Tests Test 10/27/18 16:01 Range/Units White Blood Count 8.3 4.3-11.0 10^3/uL Red Blood Count 3.60 L 4.35-5.85 10^6/uL Hemoglobin 11.5 #L 13.3-17.7 G/DL Hematocrit 33 L 40-54 % Mean Corpuscular Volume 92 80-99 FL Mean Corpuscular Hemoglobin 32 25-34 PG Mean Corpuscular Hemoglobin Concent 35 32-36 G/DL Red Cell Distribution Width 14.8 H 10.0-14.5 % Platelet Count 124 L 130-400 10^3/uL Mean Platelet Volume 12.2 H 7.4-10.4 FL Neutrophils (%) (Auto) 84 H 42-75 % Lymphocytes (%) (Auto) 13 12-44 % Monocytes (%) (Auto) 3 0-12 % Eosinophils (%) (Auto) 0 0-10 % Basophils (%) (Auto) 0 0-10 % Neutrophils # (Auto) 7.0 1.8-7.8 X 10^3 Lymphocytes # (Auto) 1.0 1.0-4.0 X 10^3 Monocytes # (Auto) 0.3 0.0-1.0 X 10^3 Eosinophils # (Auto) 0.0 0.0-0.3 10^3/uL Basophils # (Auto) 0.0 0.0-0.1 10^3/uL Blood Gas Puncture Site RT RADIAL Blood Gas Patient Temperature 93.7 Arterial Blood pH 7.29 *L 7.37-7.43 Arterial Blood Partial Pressure CO2 43 35-45 MMHG Arterial Blood Partial Pressure O2 64 L 79-93 MMHG Arterial Blood HCO3 21 L 23-27 MMOL/L Arterial Blood Total CO2 22.7 21.0-31.0 MMOL/L Arterial Blood Oxygen Saturation 93 L 94-100 % Arterial Blood Base Excess -4.8 L -2.5-2.5 MMOL/L Marcel Test POSITIVE Blood Gas Ventilator Setting YES Blood Gas Inspired Oxygen BAGGING Sodium Level 126 L 135-145 MMOL/L Potassium Level 4.2 3.6-5.0 MMOL/L Chloride Level 95 L 98-107 MMOL/L Carbon Dioxide Level 20 L 21-32 MMOL/L Anion Gap 11 5-14 MMOL/L Blood Urea Nitrogen 23 H 7-18 MG/DL Creatinine 1.73 H 0.60-1.30 MG/DL Estimat Glomerular Filtration Rate 38 BUN/Creatinine Ratio 13 Glucose Level 145 H 70-105 MG/DL Calcium Level 7.6 L 8.5-10.1 MG/DL Corrected Calcium 9.4 8.5-10.1 MG/DL Magnesium Level 1.8 1.8-2.4 MG/DL Total Bilirubin 0.3 0.1-1.0 MG/DL Aspartate Amino Transf (AST/SGOT) 81 H 5-34 U/L Alanine Aminotransferase (ALT/SGPT) 85 H 0-55 U/L Alkaline Phosphatase 74 40-136 U/L Troponin I < 0.30 <0.30 NG/ML Total Protein 3.4 L 6.4-8.2 GM/DL Albumin 1.8 L 3.2-4.5 GM/DL (BOBBY CUNNINGHAM MD) My Orders Orders - BOBBY CUNNINGHAM MD Fentanyl Injection (Sublimaze Injection (10/27/18 16:12) (BOBBY CUNNINGHAM MD) Vital Signs/I&O 10/27/18 10/27/18 15:47 15:47 Temp 93.4 Pulse 57 B/P (MAP) 115/83 (94) Pulse Ox 0 O2 Delivery Ambu-Bag Ambu Bag (BOBBY CUNNINGHAM MD) Progress Progress Note : Progress Note I have seen and evaluated the patient and agree with above. Patient is post code with spontaneous return of circulation. Patient is intubated and has IO placed to the left tibia. He has been supported with fluids and event currently. He has received 3 mg of Versed here for limited requirement for sedation. Patient's blood pressure is low but satisfactory initially but bradycardic. Atropine 1 mg IV given. This did improve his heart rate. I did speak at length with the patient's and daughter with summer sessions director also at her side. We did review patient's wishes at length as well as the 's wishes. Patient had expressed that he did not want to be on long-term or artificial support and did not want to be brain . We did discuss concerns related to cardiac arrest and related issues and that currently he is being supported with ventilator and would not be breathing on his own without that. Patient only has agonal underlying breaths. Ultimately the family decided that we would not provide any more significant support but would continue ventilator at least briefly in an effort that the daughter might arrived. Son is also in route to be with the patient. was brought into the room with the patient and allowed to sit at bedside. Active warming measures are ongoing and patient has Guan catheter placed as well as NG tube. 0: Patient's blood pressure declined to an palpable. Agonal rhythm noted on monitor with only agonal breath. Pronounced at 1649. Family and summer sessions director's at bedside as well as myself. All supportive measures stopped. 1654: I did discuss the case with Dr. Gu, patient's primary care provider and updated him on all the findings and his passing. Family updated as well. Dr. Gu to sign certificate. (BOBBY CUNNINGHAM MD) Departure Communication (Admissions) is present and has spoken with Dr. Cunningham. He will be DO NOT RESUSCITATE and transitioned to comfort care measures (ANA M CANTU APRN) Impression Primary Impression: Cardiac arrest Disposition: 20 Condition: Departure-Patient Inst. Decision time for Depature: 16:50 (BOBBY CUNNINGHAM MD) Referrals: YANNA GU DO (PCP/Family) Primary Care Physician ANA M CANTU APRN Oct 27, 2018 16:26 BOBBY CUNNINGHAM MD Oct 27, 2018 16:57
[2018-10-27 16:34] LABS: ALANINE AMINOTRANSFERASE 85 U/L (0-55); ALBUMIN 1.8 GM/DL (3.2-4.5); ALKALINE PHOSPHATASE 74 U/L (40-136); BILIRUBIN,TOTAL 0.3 MG/DL (0.1-1.0); BUN/CREATININE RATIO 13; CALCIUM 7.6 MG/DL (8.5-10.1); CARBON DIOXIDE 20 MMOL/L (21-32); CHLORIDE 95 MMOL/L (98-107); CREATININE SERUM 1.73 MG/DL (0.60-1.30); GFR ESTIMATED 38; GLUCOSE 145 MG/DL (70-105); MAGNESIUM 1.8 MG/DL (1.8-2.4); POTASSIUM 4.2 MMOL/L (3.6-5.0); SODIUM 126 MMOL/L (135-145); TOTAL PROTEIN 3.4 GM/DL (6.4-8.2)
[2018-10-27] MEDS ORDERED: MIDAZOLAM 5 MG/5 ML (VERSED) VIAL INJ ONE (17:16)
[2018-10-27] MEDS ORDERED: fentaNYL PATCH 50 MCG (DURAGESIC) TOP ONE (17:16)
[2018-10-27 18:24] VITALS: BP 0/0
[2018-10-28] MEDS ORDERED: NS IV 1000 ML 1,000 ML ONE (15:01)
== END 2018-10-27 18:30 | disposition expired ==
LOC: EDUNIT# 15:47 → ER 15:48
DX: I46.9 Cardiac arrest, cause unspecified (principal); I25.10 Atherosclerotic heart disease of native coronary artery without angina pectoris; E78.00 Pure hypercholesterolemia, unspecified; I10 Essential (primary) hypertension; F41.9 Anxiety disorder, unspecified; Z86.2 Personal history of diseases of the blood and blood-forming organs and certain disorders involving the immune mechanism; Z92.21 Personal history of antineoplastic chemotherapy; Z87.19 Personal history of other diseases of the digestive system; Z82.49 Family history of ischemic heart disease and other diseases of the circulatory system; Z79.82 Long term (current) use of aspirin; Z79.02 Long term (current) use of antithrombotics/antiplatelets; Z79.51 Long term (current) use of inhaled steroids; Z98.61 Coronary angioplasty status; Z90.79 Acquired absence of other genital organ(s); Z98.890 Other specified postprocedural states
CPT/HCPCS: 31500; 36415; 36680; 80053; 82805; 83735; 84484; 85025; 93005; 93041